=== PATIENT | female | born 1975 | race African-American/Black ===

== ENCOUNTER 2017-04-08 19:22 | Emergency (ER) | payer BC ==
[~2017-04-08] VITALS: Ht 154.9 cm; Wt 82.1 kg
[~2017-04-08 19:22] MED LIST: AC500T; AGM875T PO; ALBU17AE23 IH; AZIT-21 PO; CEFD300C3 PO; CETI5TAB25; CYCL10TA9 PO; DCS100C PO; DEXL60CA PO; DEXL60CA5 PO; DICY20TA57 PO; DOXY100C2 PO; GUAI100L2; HYDR-3583 PO; HYDR-91 PO; HYDR1TAB PO; IBP800T PO; IBUP-30 PO; IBUP200C8; LEVO750T24 PO; LRT10T PO; METF500T8 PO; METR500T PO; MTC5T PO; NAPR-243 PO; NF-TRA/ACE PO; PANT40SU PO; PANT40TA PO; PHEN100T26 PO; PNT40TEC PO; PRD20T PO; RANI150C11 PO; SCR1T1 PO; SUCR1TAB36 PO; SULF1TAB38 PO; TRAM-21 PO; TRM50T PO; [UNRECOGNIZED DRUG - REMARK]
[2017-04-08] MEDS ORDERED: FLUC150T PO (19:38)
[2017-04-08] MEDS ORDERED: AMOX-358 PO (19:38)
--- NOTE | 2017-04-08 19:39 | ED Integumentary General ---
General Stated Complaint: RT ARM SWELLING/POSSIBLE BITE Source: patient Exam Limitations: no limitations History of Present Illness Time seen by provider: 19:34 Initial Comments To ER with concern of a bug bite to the arm. She awakened this morning with a small red bump and some itchiness to the medial aspect of the right upper arm. She applied some hydrocortisone cream and went on about her day. As the day progressed she's had increasing redness, itchiness. No systemic symptoms such as fevers chills nausea or otherwise. She did not see anything bite her. Timing/Duration: this morning Severity: moderate Associated Symptoms: denies symptoms Allergies and Home Medications Allergies Uncoded Allergies: MILK (Adverse Reaction, Intermediate, Throat swelling, 05/03/14) Home Medications Dexlansoprazole 60 Mg Cap.bp, 60 MG PO DAILY, #30 Ref 5 Prescribed by: CAROLINE TSANG on 05/25/16 1005 Pantoprazole Sodium 40 Mg Tablet.dr, 80 MG PO DAILY, (Reported) Sucralfate 1 Gm Tablet, 1 GM PO PRN PRN for HEARTBURN, (Reported) Constitutional: see HPI, No chills, No fever EENTM: see HPI Respiratory: no symptoms reported Cardiovascular: no symptoms reported Genitourinary: no symptoms reported Musculoskeletal: no symptoms reported Skin: see HPI Psychiatric/Neurological: No Symptoms Reported Past Lvcueri-Fnsbqi-Hjwogg Hx Patient Social History Recent Foreign Travel: No Contact w/Someone Who Travel: No Immunizations Up To Date Tetanus Booster (TDap): Less than 5yrs Seasonal Allergies Seasonal Allergies: Yes Surgeries HX Surgeries: Yes (DENTAL) Surgeries: Hysterectomy Respiratory Hx Respiratory Disorders: No Cardiovascular Hx Cardiac Disorders: No Neurological Hx Neurological Disorders: No Reproductive System Hx Reproductive Disorders: Yes (Fibroid tumors, had 5 miscarragies) 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 Genitourinary Hx Genitourinary Disorders: Yes (PYELONEPHRITIS) Genitourinary Disorders: Kidney Infection Gastrointestinal Hx Gastrointestinal Disorders: No Gastrointestinal Disorders: Gastroesophageal Reflux Musculoskeletal Hx Musculoskeletal Disorders: No Endocrine Hx Endocrine Disorders: No HEENT HX ENT Disorders: No Cancer Hx Cancer: No Psychosocial Hx Psychiatric Problems: No Integumentary HX Skin/Integumentary Disorder: No Blood Transfusions Hx Blood Disorders: No Family Medical History Family Medial History: Alzheimer's disease 19 FATHER Cardiovascular disease 19 MOTHER Completed stroke 19 MOTHER Diabetes mellitus 19 MOTHER Hypertension 19 MOTHER Kidney disease 19 MOTHER Myocardial infarction 19 MOTHER Respiratory disorder 19 MOTHER (COPD) Physical Exam Vital Signs Capillary Refill : General Appearance: WD/WN, no apparent distress HEENT: PERRL/EOMI, normal ENT inspection Neck: non-tender, full range of motion Respiratory: no respiratory distress, no accessory muscle use Gastrointestinal: normal bowel sounds, non tender Neurologic/Psychiatric: alert, normal mood/affect Skin: normal color, warm/dry Skin Problem Character: erythema (10 x 15 cm erythematous area to the medial aspect of the right upper arm with a small papule in the center without necrosis or fluctuance to suggest abscess.) Progress/Results/Core Measures Results/Orders My Orders Orders - LOC DAVEY APRN Amoxicillin/Clavulanate Tablet (Augmenti (04/08/17 19:45) Dexamethasone Pf Injection (Decadron Pf (04/08/17 19:45) Departure Communication Progress Notes Discussed with the patient it is difficult at this point to determine whether this is a localized reaction to insect venom or an insect bite with secondary infection. Impression Impression: Primary Impression: Soft tissue infection Additional Impression: Localized allergic reaction Disposition: 01 HOME, SELF-CARE Condition: Stable Departure-Patient Inst. Decision time for Depature: 19:36 Referrals: JAZMIN MCGRAW DO (PCP/Family) Primary Care Physician Patient Instructions: Insect Bites and Stings Add. Discharge Instructions: 1. Apply cool compresses to this 2. Take a Benadryl tonight when you get home. Then, using every 6 hours as needed for itching. Obviously this will make you sleepy but if there is an allergic component to this rash, the Benadryl will help 2. Follow-up with Dr. Mcgraw later this week for any worsening or persistent symptoms. Take the antibiotics as well. Scripts Fluconazole (Diflucan) 150 Mg Tablet 150 MG PO DAILY for 2 Days, #2 TAB Prov: LOC DAVEY APRN 04/08/17 Amoxicillin/Potassium Clav (Augmentin 875-125 Tablet) 1 Each Tablet 1 EACH PO BID, #14 TAB Prov: LOC DAVEY APRN 04/08/17 Copy Copies To 1: JAZMIN MCGRAW PETER J APRN Apr 08, 2017 19:39
[2017-04-08] MEDS ORDERED: AUGMENTIN 875 MG TAB (AMOXICILLIN/CLAVULANATE) PO SCH (19:45)
[2017-04-08] MEDS ORDERED: DEXAMETHASONE PF 10 MG/ML (DECADRON) VIAL IM ONE (19:45)
[2017-04-08 20:10] VITALS: BP 135/64
--- OUTSIDE RECORDS SUMMARY | 2017-04-09 09:28 | XMS REPORT | Continuity of Care Document ---
Author Author [facility] Organization [facility] Address Unknown Phone Unavailable Allergies Active Description Code Type Severity Reaction Onset Reported/Identified Relationship to Patient Clinical Status Yes MILK MILK Moderate Throat swelling 05/03/2014 Medications Problems Date Dx Coded Attending Type Code Diagnosis Diagnosed By 07/16/2010 Ot 787.91 07/16/2010 Ot 789.03 07/16/2010 Ot 789.06 07/28/2010 Ot 466.0 07/28/2010 Ot 786.2 10/27/2010 Ot 845.00 10/27/2010 Ot 959.7 10/27/2010 Ot E000.8 10/27/2010 Ot E849.8 10/27/2010 Ot E885.9 10/27/2010 Ot E927.0 07/18/2012 Ot 530.11 07/18/2012 Ot 535.50 07/18/2012 Ot 553.3 07/28/2013 KIRK SKELTON DO Ot 785.1 10/26/2013 KIRK SKELTON DO Ot 785.1 12/19/2013 JULIETTE CULP, APRIL Buckley Ot 462 12/19/2013 JULIETTE CULP, APRIL Buckley Ot 465.9 05/03/2014 KIRK SKELTON DO Ot 462 07/10/2014 LOC DAVEY WAREHOUSE ORDER PICKER Ot 530.81 07/10/2014 LOC DAVEY WAREHOUSE ORDER PICKER Ot 789.06 09/26/2014 VICKY CULP, MICHELLE Mann Ot 354.0 09/26/2014 VICKY CULP, MICHELLE Mann Ot 719.43 11/28/2014 JULIETTE CULP, APRIL Buckley Ot 465.9 11/28/2014 APRIL SEGOVIA MD Ot 786.2 11/30/2014 Ot 729.5 11/30/2014 Ot V45.89 11/30/2014 Ot 785.1 12/02/2014 Ot 729.5 12/02/2014 Ot V45.89 12/02/2014 Ot 785.1 12/26/2014 Ot 530.81 12/26/2014 Ot 786.50 03/20/2015 LOC DAVEY APRN Ot 724.5 03/31/2015 Ot 729.5 03/31/2015 Ot V45.89 03/31/2015 Ot 785.1 05/18/2015 FRANCO CASTANEDA DERRICK ENGINEER Ot 729.5 05/18/2015 FRANCO CASTANEDA DERRICK ENGINEER Ot 729.5 06/10/2015 DELROY CULP, MARY Higgins Ot V76.12 06/23/2015 FRANCO CASTANEDA DERRICK ENGINEER Ot 729.5 07/11/2015 FRANCO CASTANEDA DERRICK ENGINEER Ot 729.5 08/02/2015 FRANCO CASTANEDA DERRICK ENGINEER Ot 729.5 08/02/2015 FRANCO CASTANEDA DERRICK ENGINEER Ot M79.609 08/07/2015 CONCHITA CULP, RAZA Mancia Ot K21.0 GASTRO-ESOPHAGEAL REFLUX DISEASE WITH ES 08/07/2015 CONCHITA CULP, RAZA Mancia Ot R07.9 CHEST PAIN, UNSPECIFIED 08/07/2015 CONCHITA CULP, RAZA Mancia Ot Z79.899 OTHER SHELTER (CURRENT) DRUG THERAPY 08/12/2015 DELROY CULP, MARY Higgins Ot V76.12 08/12/2015 FRANCO CASTANEDA DERRICK ENGINEER Ot 729.5 08/12/2015 FRANCO CASTANEDA DERRICK ENGINEER Ot M79.609 12/07/2015 VICKY CULP, MICHELLE Mann Ot M54.6 PAIN IN THORACIC SPINE 12/07/2015 VICKY CULP, MICHELLE Mann Ot R07.89 OTHER CHEST PAIN 04/25/2016 ARIANA HAMILTON DO Ot K21.0 GASTRO-ESOPHAGEAL REFLUX DISEASE WITH ES 04/25/2016 ARINAA HAMILTON DO Ot R07.89 OTHER CHEST PAIN 04/26/2016 ARIANA HAMILTON DO Ot K21.0 GASTRO-ESOPHAGEAL REFLUX DISEASE WITH ES 04/26/2016 ARIANA HAMILTON DO Ot R07.89 OTHER CHEST PAIN 04/27/2016 ARIANA HAMILTON DO Ot K21.0 GASTRO-ESOPHAGEAL REFLUX DISEASE WITH ES 04/27/2016 JOY DO ARIANA Ina Ot R07.89 OTHER CHEST PAIN 05/09/2016 MARY POTTS MD, Ot Z12.31 ENCNTR SCREEN MAMMOGRAM FOR MALIGNANT NE 05/23/2016 CAROLINE TSANG MD Ot K21.9 GASTRO-ESOPHAGEAL REFLUX DISEASE WITHOUT 05/23/2016 CAROLINE TSANG MD Ot Z01.818 ENCOUNTER FOR OTHER PREPROCEDURAL EXAMIN 05/24/2016 CAROLINE TSANG MD Ot K21.9 GASTRO-ESOPHAGEAL REFLUX DISEASE WITHOUT 05/24/2016 CAROLINE TSANG MD Ot Z01.818 ENCOUNTER FOR OTHER PREPROCEDURAL EXAMIN 05/24/2016 CAROLINE TSANG MD Ot K21.9 GASTRO-ESOPHAGEAL REFLUX DISEASE WITHOUT 05/24/2016 CAROLINE TSANG MD Ot Z01.818 ENCOUNTER FOR OTHER PREPROCEDURAL EXAMIN 05/25/2016 MARY POTTS MD, Ot Z12.31 ENCNTR SCREEN MAMMOGRAM FOR MALIGNANT NE 05/25/2016 CAROLINE TSANG MD Ot K21.0 GASTRO-ESOPHAGEAL REFLUX DISEASE WITH ES 05/25/2016 CAROLINE TSANG MD Ot K29.70 GASTRITIS, UNSPECIFIED, WITHOUT BLEEDING 05/25/2016 CAROLINE TSANG MD Ot K44.9 DIAPHRAGMATIC HERNIA WITHOUT OBSTRUCTION 06/05/2016 CAROLINE TSANG MD Ot K21.0 GASTRO-ESOPHAGEAL REFLUX DISEASE WITH ES 06/05/2016 CAROLINE TSANG MD Ot K29.70 GASTRITIS, UNSPECIFIED, WITHOUT BLEEDING 06/05/2016 CAROLINE TSANG MD Ot K44.9 DIAPHRAGMATIC HERNIA WITHOUT OBSTRUCTION 06/23/2016 MARY POTTS MD, Ot Z12.31 ENCNTR SCREEN MAMMOGRAM FOR MALIGNANT NE 06/25/2016 JAZMIN MCGRAW DO Ot M25.562 PAIN IN LEFT KNEE 07/04/2016 JAZMIN MCRGAW DO Ot M25.562 PAIN IN LEFT KNEE Procedures Results Encounters ACCT No. Visit Date/Time Discharge Status Pt. Type Provider Facility Loc./Unit Complaint [id number] 06/22/2016 18:26:00 2015 18:26:00 CAN Preadmit JAZMIN MCGRAW DO [facility] RAD L KNEE PAIN [id number] 05/25/2016 08:01:00 2015 11:00:00 DIS Outpatient CAROLINE TSANG MD [facility] SDC REFLUX [id number] 05/23/2016 05:42:00 2015 10:17:00 DIS Outpatient CAROLINE TSANG MD [facility] PREOP REFLUX [id number] 04/25/2016 18:45:00 2015 22:03:00 DIS Emergency ARIANA HAMILTON DO [facility] ER SORE THROAT,ACID REFLUX [id number] 12/07/2015 04:26:00 2015 06:18:00 DIS Emergency MICHELLE PERRY MD [facility] ER BACK PAIN,CHEST PAIN [id number] 08/07/2015 14:35:00 2014 16:51:00 DIS Emergency CONCHITA CULP, RAZA Mancia [facility] ER CHEST PAIN [id number] 05/23/2015 08:58:00 2014 23:59:59 CLS Outpatient MARY POTTS MD [facility] RAD [id number] 05/03/2015 10:34:00 2014 23:59:59 CLS Outpatient FRANCO CASTANEDA [facility] RAD [id number] 03/20/2015 17:50:00 2014 18:55:00 DIS Emergency LOC DAVEY APRN [facility] ER [id number] 11/28/2014 21:41:00 2014 23:06:00 DIS Emergency APRIL SEGOVIA MD [facility] ER [id number] 09/26/2014 08:36:00 2013 09:33:00 DIS Emergency MICHELLE PERYR MD [facility] ER [id number] 07/10/2014 10:36:00 2013 11:44:00 DIS Emergency DAVEYLOC APRN [facility] ER [id number] 05/03/2014 11:40:00 2013 13:02:00 DIS Emergency KIRK SKELTON DO [facility] ER [id number] 12/19/2013 06:57:00 2013 07:16:00 DIS Emergency APRIL SEGOVIA MD [facility] ER [id number] 07/28/2013 11:09:00 2013 00:01:00 DIS Outpatient KIRK SKELTON DO [facility] CARD [id number] 07/28/2013 08:22:00 2012 10:43:00 DIS Emergency KIRK SKELTON DO [facility] ER [id number] 02/06/2013 13:05:00 2012 23:59:59 CLS Outpatient [id number] 06/23/2016 08:41:00 ACT Outpatient LUCIEN JAZMIN [facility] RAD L KNEE PAIN [id number] 05/08/2016 10:40:00 ACT Outpatient MARY POTTS MD [facility] RAD ROUTINE SCREENING [id number] 12/26/2014 19:03:00 Document Registration [id number] 10/27/2013 11:30:00 Document Registration [id number] 10/01/2012 10:08:00 Document Registration [id number] 07/18/2012 09:48:00 Document Registration [id number] 10/27/2010 20:01:00 Document Registration [id number] 07/28/2010 00:15:00 Document Registration [id number] 07/16/2010 03:19:00 Document Registration
== END 2017-04-08 20:10 | disposition home or self-care (01) ==
LOC: EDUNIT# 19:22 → ER 19:24
DX: T78.40XA Allergy, unspecified, initial encounter (principal); L08.9 Local infection of the skin and subcutaneous tissue, unspecified
CPT/HCPCS: 99283

== ENCOUNTER → 2017-05-21 | Outpatient (CLI) | payer BC ==
[~2017-05-21] MED LIST changes: +AMOX-358 PO; +FLUC150T PO
== END ==
LOC: RAD 09:33
PROVIDERS: ATTEND Family Medicine
DX: Z12.31 Encounter for screening mammogram for malignant neoplasm of breast (principal)
CPT/HCPCS: 77067

== ENCOUNTER → 2018-05-22 | Outpatient (CLI) | payer BC ==
--- NOTE | 2018-05-22 10:00 | Diagnostic Imaging Report ---
Indication: Routine screening. Comparison is made with prior mammogram from 05/21/2017 and 05/08/2016. 2-D and 3-D bilateral screening mammography was performed with CAD. Both breasts remain heterogeneously dense, limiting the sensitivity of mammography. The parenchymal pattern is stable. No dominant mass or malignant-appearing microcalcifications are seen. Axillae are unremarkable. Impression: BI-RADS category 1. No mammographic features suspicious for malignancy are identified. ACR BI-RADS Category 1: Negative. Result letter will be mailed to the patient. Note: At least 10% of breast cancer is not imaged by mammography. Dictated by: Dictated on workstation # [id number]
== END ==
LOC: RAD 07:35
PROVIDERS: ATTEND Family Medicine
DX: Z12.31 Encounter for screening mammogram for malignant neoplasm of breast (principal)
CPT/HCPCS: 77067

== ENCOUNTER 2018-09-02 18:01 | Emergency (ER) | payer BC ==
[~2018-09-02] VITALS: Ht 162.6 cm; Wt 79.4 kg
[~2018-09-02 18:01] MED LIST changes: +LEVO500T2 PO; +PHEN-640 PO
--- OUTSIDE RECORDS SUMMARY | 2018-09-02 18:07 | XMS REPORT ---
Author Author STANISLAV KIRKLAND Organization [facility] Address [address] [place] [address] Care Team Providers Care Rotary Cutter Feeder Name Role Phone STANISLAV KIRKLAND Unavailable PROBLEMS Type Condition ICD9-CM Code [id number] Code Onset Dates Condition Status SNOMED Code Problem Seasonal allergic rhinitis due to pollen J30.1 Active [id number] ALLERGIES No Known Allergies ENCOUNTERS Encounter Location Date Diagnosis [facility] [id number] [place] [phone] Mar, Sore throat J02.9 and Seasonal allergic rhinitis due to pollen J30.1 [facility] [address] [place] [phone] Jan, Allergic, initial encounter T78.40XA and Acute suppurative otitis media of left ear without spontaneous rupture of tympanic membrane, recurrence not specified H66.002 [facility] [address] [place] [phone] Nov, 2016 Sore throat J02.9 and Seasonal allergic rhinitis due to pollen J30.1 IMMUNIZATIONS No Known Immunizations SOCIAL HISTORY Never Assessed REASON FOR VISIT sore throat for 4 days. denies cough et fever. been sick for a week [place] PLAN OF CARE Activity Details Follow Up prn Reason:ear pain VITAL SIGNS Height 61 in 2018-03-22 Weight 179.4 lbs 2018-03-22 Temperature 98.3 degrees Fahrenheit 2018-03-22 Heart Rate 80 bpm 2018-03-22 Respiratory Rate 20 2018-03-22 BMI 33.89 kg/m2 2018-03-22 Blood pressure systolic 124 mmHg 2018-03-22 Blood pressure diastolic 76 mmHg 2018-03-22 MEDICATIONS Medication Instructions Dosage Frequency Start Date End Date Duration Status Dexilant 60 MG Orally Once a day 1 capsule 24h Active Fluticasone Propionate 50 MCG/ACT Nasally Once a day 1 spray in each nostril 24h Nov, Active Phentermine HCl 37.5 MG Not-Taking Protonix 40 MG Orally Once a day 1 tablet 24h Active RESULTS Name Result Date Reference Range STREP A (IN HOUSE) 2018-03-22 STREP A negative Control + Lot # [id number] Exp date 2019 10 16 PROCEDURES Procedure Date Ordered Result Body Site STREP A ASSAY W/OPTIC March 22, 2018 INSTRUCTIONS MEDICATIONS ADMINISTERED No Known Medications MEDICAL (GENERAL) HISTORY Type Description Date Surgical History [facility] 2012 Surgical History dental surgery...wisdom teeth 2007 Hospitalization History post surgery 2013 Hospitalization History post vaginal child 2003, 2006
--- OUTSIDE RECORDS SUMMARY | 2018-09-02 18:09 | XMS REPORT | Continuity of Care Document ---
Author Author [facility] Organization [facility] Address Unknown Phone Unavailable Allergies Active Description Code Type Severity Reaction Onset Reported/Identified Relationship to Patient Clinical Status Yes MILK MILK Moderate Throat swelling 05/03/2014 Medications There is no data. Problems Date Dx Coded Attending Type Code [...] JULIETTE CULP, APRIL Buckley Ot 462 12/19/2013 APRIL SEGOVIA MD Ot 465.9 05/03/2014 KIRK SKELTON DO Ot 462 07/10/2014 LOC DAVEY APRN Ot 530.81 07/10/2014 LOC DAVEY APRN Ot 789.06 09/26/2014 VICKY CULP, MICHELLE Mann [...] V45.89 03/31/2015 Ot 785.1 05/18/2015 FRANCO CASTANEDA COMPUTER GRAPHICS ILLUSTRATOR Ot 729.5 05/18/2015 FRANCO CASTANEDA COMPUTER GRAPHICS ILLUSTRATOR Ot 729.5 06/10/2015 DELROY CULP, MARY Higgins Ot V76.12 06/23/2015 FRANCO CASTANEDAP Ot 729.5 07/11/2015 FRANCO CASTANEDAP Ot 729.5 08/02/2015 FRANCO CASTANEDAP Ot 729.5 08/02/2015 FRANCO CASTANEDAP Ot M79.609 08/07/2015 CONCHITA CULP, RAZA Mancia Ot K21.0 GASTRO-ESOPHAGEAL REFLUX DISEASE WITH ES 08/07/2015 CONCHITA CULP, RAZA Mancia Ot R07.9 CHEST PAIN, UNSPECIFIED 08/07/2015 CONCHITA CULP, RAZA Mancia Ot 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 08/12/2015 DELROY CULP, MARY Higgins Ot V76.12 08/12/2015 FRANCO CASTANEDA COMPUTER GRAPHICS ILLUSTRATOR Ot 729.5 08/12/2015 FRANCO CASTANEDAP Ot M79.609 12/07/2015 VICKY CULP, MICHELLE Mann Ot M54.6 PAIN IN THORACIC SPINE 12/07/2015 VICKY CULP, MICHELLE Mann Ot R07.89 OTHER CHEST PAIN 04/25/2016 ARIANA HAMILTON DO Ot K21.0 GASTRO-ESOPHAGEAL REFLUX DISEASE WITH ES 04/25/2016 ARIANA HAMILTON DO Ot R07.89 OTHER CHEST PAIN 04/26/2016 ARIANA HAMILTON DO Ot K21.0 GASTRO-ESOPHAGEAL REFLUX DISEASE WITH ES 04/26/2016 ARIANA HAMILTON DO Ot R07.89 OTHER CHEST PAIN 04/27/2016 ARIANA HAMILTON DO Ot K21.0 GASTRO-ESOPHAGEAL REFLUX DISEASE WITH ES 04/27/2016 ARIANA HAMILTON DO Ot R07.89 OTHER CHEST PAIN 05/09/2016 MARY POTTS MD, Ot Z12.31 ENCNTR SCREEN MAMMOGRAM FOR MALIGNANT NE 05/23/2016 CAROLINE TSANG MD Ot K21.9 GASTRO-ESOPHAGEAL REFLUX DISEASE WITHOUT 05/23/2016 CAROLINE TSANG MD Ot Z01.818 ENCOUNTER FOR OTHER PREPROCEDURAL EXAMIN 05/24/2016 CAROLINE TSANG MD Ot K21.9 GASTRO-ESOPHAGEAL REFLUX DISEASE WITHOUT 05/24/2016 SANJIV TSANG MDKI Ot Z01.818 ENCOUNTER FOR OTHER PREPROCEDURAL EXAMIN [...] ENCNTR SCREEN MAMMOGRAM FOR MALIGNANT NE 06/25/2016 ALMAZ ENRIQUEZ DO S Ot M25.562 PAIN IN LEFT KNEE 07/04/2016 ALMAZ ENRIQUEZ DO S Ot M25.562 PAIN IN LEFT KNEE 04/08/2017 LOC DAVEY APRN Ot L08.9 LOCAL INFECTION OF THE SKIN AND SUBCUTAN 04/08/2017 LOC DAVEY APRN Ot S40.861A INSECT BITE (NONVENOMOUS) OF RIGHT UPPER 04/08/2017 LOC DAVEY TRAPEZE ARTIST Ot T78.40XA ALLERGY, UNSPECIFIED, INITIAL ENCOUNTER 06/10/2017 ALMAZ ENRIQUEZ DO S Ot Z12.31 ENCNTR SCREEN MAMMOGRAM FOR MALIGNANT NE 09/04/2017 DELROY CULP, MARY Higgins Ot Z12.31 ENCNTR SCREEN MAMMOGRAM FOR MALIGNANT NE 09/27/2017 DELROY CULP, MARY Higgins Ot Z12.31 ENCNTR SCREEN MAMMOGRAM FOR MALIGNANT NE 09/27/2017 ROHITHNDGLADYS JONES, ALMAZ S Ot M25.562 PAIN IN LEFT KNEE 09/27/2017 LUCIEN JONES, ALMAZ S Ot Z12.31 ENCNTR SCREEN MAMMOGRAM FOR MALIGNANT NE 09/30/2017 MARY POTTS MD Ot Z12.31 ENCNTR SCREEN MAMMOGRAM FOR MALIGNANT NE 09/30/2017 WERNER ENRIQUEZ DOQUELINE S Ot M25.562 PAIN IN LEFT KNEE 09/30/2017 WERNER ENRIQUEZ DOQUELINE S Ot Z12.31 ENCNTR SCREEN MAMMOGRAM FOR MALIGNANT NE 05/13/2018 MARY POTTS MD Ot Z12.31 ENCNTR SCREEN MAMMOGRAM FOR MALIGNANT NE 05/13/2018 ROHITHNDGLADYS DO, ALMAZ S Ot M25.562 PAIN IN LEFT KNEE 05/13/2018 LUCIEN JONES, ALMAZ S Ot Z12.31 ENCNTR SCREEN MAMMOGRAM FOR MALIGNANT NE 06/02/2018 KIRK SKELTON DO Ot K21.9 GASTRO-ESOPHAGEAL REFLUX DISEASE WITHOUT 06/02/2018 KIRK SKELTON DO Ot N30.80 OTHER CYSTITIS WITHOUT HEMATURIA 06/02/2018 KIRK SKELTON DO Ot N39.0 URINARY TRACT INFECTION, SITE NOT SPECIF 06/02/2018 KIRK SKELTON DO Ot R35.0 FREQUENCY OF MICTURITION 06/02/2018 KIRK SKELTON DO Ot Z87.19 PERSONAL HISTORY OF OTHER DISEASES OF TH 06/02/2018 KIRK SKELTON DO Ot Z90.710 ACQUIRED ABSENCE OF BOTH CERVIX AND UTER 06/02/2018 KIRK SKELTON DO Ot Z91.011 ALLERGY TO MILK PRODUCTS 06/04/2018 KIRK SKELTON DO Ot K21.9 GASTRO-ESOPHAGEAL REFLUX DISEASE WITHOUT 06/04/2018 KIRK SKELTON DO Ot N30.80 OTHER CYSTITIS WITHOUT HEMATURIA 06/04/2018 KIRK SKELTON DO Ot N39.0 URINARY TRACT INFECTION, SITE NOT SPECIF 06/04/2018 KIRK SKELTON DO Ot R35.0 FREQUENCY OF MICTURITION 06/04/2018 KIRK SKELTON DO Ot Z87.19 PERSONAL HISTORY OF OTHER DISEASES OF TH 06/04/2018 KIRK SKELTON DO Ot Z90.710 ACQUIRED ABSENCE OF BOTH CERVIX AND UTER 06/04/2018 KIRK SKELTON DO Ot Z91.011 ALLERGY TO MILK PRODUCTS Procedures There is no data. Results There is no data. Encounters ACCT No. Visit Date/Time Discharge Status Pt. Type Provider Facility Loc./Unit Complaint [id number] 06/02/2018 04:19:00 06/02/2018 05:09:00 DIS Emergency KIRK SKELTON DO [facility] ER POSS UTI, BLOODY VAG DISCHARGE,PELVIC PAIN [id number] 05/22/2018 07:45:00 05/22/2018 23:59:59 CLS Preadmit ALMAZ ENRIQUEZ DO S [facility] RAD SCREENING [id number] 05/21/2017 09:33:00 05/21/2017 23:59:59 CLS Outpatient ALMAZ ENRIQUEZ DO S [facility] RAD SCREENING [id number] 04/08/2017 19:24:00 04/08/2017 20:10:00 DIS Emergency LOC DAVEY APRN [facility] ER RT ARM SWELLING/POSSIBLE BITE [id number] 06/23/2016 08:41:00 06/23/2016 23:59:59 CLS Outpatient IZZY ENRIQUEZ DOLINE S [facility] RAD L KNEE PAIN [id number] 06/22/2016 18:26:00 06/22/2016 18:26:00 CAN Preadmit ROHITHNDWERNER GRAHAM DOQUELINE S [facility] RAD L KNEE PAIN [id number] 05/25/2016 08:01:00 05/25/2016 11:00:00 DIS Outpatient CAROLINE TSANG MD [facility] SDC REFLUX [id number] 05/23/2016 05:42:00 05/23/2016 10:17:00 DIS Outpatient CAROLINE TSANG MD [facility] PREOP REFLUX [id number] 05/08/2016 10:40:00 05/08/2016 23:59:59 CLS Outpatient MARY POTTS MD [facility] RAD ROUTINE SCREENING [id number] 04/25/2016 18:45:00 04/25/2016 22:03:00 DIS Emergency ARIANA HAMILTON DO [facility] ER SORE THROAT,ACID REFLUX [id number] 12/07/2015 04:26:00 12/07/2015 06:18:00 DIS Emergency MICHELLE PERRY MD [facility] ER BACK PAIN,CHEST PAIN [id number] 08/07/2015 14:35:00 08/07/2015 16:51:00 DIS Emergency RAZA ARANGO MD [facility] ER CHEST PAIN [id number] 05/23/2015 08:58:00 05/23/2015 23:59:59 CLS Outpatient MARY POTTS MD [facility] RAD [id number] 05/03/2015 10:34:00 05/03/2015 23:59:59 CLS Outpatient FRANCO CASTANEDA [facility] RAD [id number] 03/20/2015 17:50:00 03/20/2015 18:55:00 DIS Emergency LOC DAVEY APRN [facility] ER [id number] 11/28/2014 21:41:00 11/28/2014 23:06:00 DIS Emergency APRIL SEGOVIA MD [facility] ER [id number] 09/26/2014 08:36:00 09/26/2014 09:33:00 DIS Emergency MICHELLE PERRY MD [facility] ER [id number] 07/10/2014 10:36:00 07/10/2014 11:44:00 DIS Emergency PETAR LOC Aldrich APRN [facility] ER [id number] 05/03/2014 11:40:00 05/03/2014 13:02:00 DIS Emergency KIRK SKELTON DO [facility] ER [id number] 12/19/2013 06:57:00 12/19/2013 07:16:00 DIS Emergency APRIL SEGOVIA MD [facility] ER [id number] 07/28/2013 11:09:00 10/26/2013 00:01:00 DIS Outpatient KIRK SKELTON DO [facility] CARD [id number] 07/28/2013 08:22:00 07/28/2013 10:43:00 DIS Emergency KIRK SKELTON DO [facility] ER [id number] 02/06/2013 13:05:00 02/06/2013 23:59:59 CLS Outpatient [id number] 09/02/2018 18:03:00 ACT Emergency SABINA WILKINSON MD [facility] ER "BUTTERFLIES IN CHEST" [id number] 12/26/2014 19:03:00 Document Registration [id number] 10/27/2013 11:30:00 Document Registration [id number] 10/01/2012 10:08:00 Document Registration [id number] 07/18/2012 09:48:00 Document Registration [id number] 10/27/2010 20:01:00 Document Registration [id number] 07/28/2010 00:15:00 Document Registration [id number] 07/16/2010 03:19:00 Document Registration [id number] 03/22/2018 08:10:00 03/22/2018 23:59:59 CLS Outpatient JAIME CHANDRA APRN [facility] 05/20/15 08/26/2018 10:42:02 08/26/2018 23:59:59 CLS Outpatient Almaz Enriquez [id number] 05/23/2015 08:59:26 ACT Document Registration
[2018-09-02 19:14] LABS: BASOPHILS % (AUTO) 0 % (0-10); EOSINOPHILS # (AUTO) 0.1 10^3/uL (0.0-0.3); EOSINOPHILS % (AUTO) 1 % (0-10); HEMATOCRIT 34 % (35-52); HEMOGLOBIN 11.3 G/DL (11.5-16.0); LYMPHOCYTES # (AUTO) 4.2 X 10^3 (1.0-4.0); LYMPHOCYTES % (AUTO) 61 % (12-44); MEAN CORPUSCULAR HEMOGLOBIN 25 PG (25-34); MEAN CORPUSCULAR HGB CONC 33 G/DL (32-36); MEAN CORPUSCULAR VOLUME 76 FL (80-99); MONOCYTES # (AUTO) 0.5 X 10^3 (0.0-1.0); MONOCYTES % (AUTO) 7 % (0-12); NEUTROPHILS % (AUTO) 30 % (42-75); PLATELET COUNT 354 10^3/uL (130-400); RED BLOOD COUNT 4.48 10^6/uL (4.35-5.85); RED CELL DISTRIBUTION WIDTH 14.5 % (10.0-14.5); WHITE BLOOD COUNT 6.8 10^3/uL (4.3-11.0)
--- NOTE | 2018-09-02 19:14 | ED Cardiac General ---
History of Present Illness General Chief Complaint: Chest Wall/Rib Pain Stated Complaint: "BUTTERFLIES IN CHEST" Source: patient Exam Limitations: no limitations History of Present Illness Date Seen by Provider: Sep 02, 2018 Time Seen by Provider: 18:59 Initial Comments The patient presents to ER by private conveyance with chief complaint she's had some palpitations and flutters in her chest all day. She says she thinks is related to her recent starting phentermine. She says she's been on for about a month when she went in for a checkup with her GREETING CARD EDITOR and asked him for refill and she take it for about 2 weeks and then started having some flutters like butterflies in her chest. She does not have any lightheadedness and near- syncope or passing out. She thought it might be related to phentermine so she stopped taking it about 10 days ago. She's continued to have these few second long flutters in her chest. He became more and more prominent in the last couple days several times a day and today she says she's had them off and on all day long and when she went to the chiropractor to have her rib put back in he checked her blood pressure and found it to be high around 170 systolic. She does not have any coronary artery disease, hypertension, diabetes, hypothyroidism and hyperthyroidism, cholesterol problems. She does not smoke or use control. She had a hysterectomy previously. She is not taking any medicines except for an antacid daily. She thought She had a high blood pressure in the palpitations in her chest she better come get checked out. She' s not having any pain in her chest nausea fever sweats chills. She says she drinks usually several caffeinated drinks a day 3-5. She thinks she's already had 2 teas and one soda today. Allergies and Home Medications Allergies Uncoded Allergies: MILK (Adverse Reaction, Intermediate, Throat swelling, 05/03/14) Patient Home Medication List Home Medication List Reviewed: Yes Review of Systems Review of Systems Constitutional: No chills, No diaphoresis EENTM: No Blurred Vision, No Double Vision Respiratory: Denies Cough, Denies Orthopnea Cardiovascular: Denies Chest Pain, Denies Edema, Denies Irregular Heart Rate, Denies Lightheadedness; Palpitations; Denies Syncope Gastrointestinal: Denies Constipated, Denies Diarrhea, Denies Nausea Genitourinary: Denies Discharge, Denies Drainage Musculoskeletal: No back pain, No joint pain Skin: No pruritus, No rash Psychiatric/Neurological: Denies Headache, Denies Numbness, Denies Paresthesia Past Cfom[place]g-Ljlqwf-Oeyndf Hx Patient Social History Alcohol Use: Denies Use Recreational Drug Use: No Recent Foreign Travel: No Contact w/Someone Who Travel: No Recent Hopitalizations: No Immunizations Up To Date Tetanus Booster (TDap): Less than 5yrs Seasonal Allergies Seasonal Allergies: Yes Past Medical History Surgeries: Yes (DENTAL; HYST/OVARIES INTACT; EGD'S ) Hysterectomy Respiratory: No Cardiac: No (Palpitations with steriods) Palpitations Neurological: No Reproductive Disorders: Yes (Fibroid tumors, had 5 miscarragies) GLASS BREAKER History: Hysterectomy Sexually Transmitted Disease: No Genitourinary: Yes Kidney Infection, Bladder Infection Gastrointestinal: Yes Gastroesophageal Reflux, Hiatal Hernia Musculoskeletal: No Endocrine: No HEENT: No Cancer: No Psychosocial: No Integumentary: No Blood Disorders: No Family Medical History Alzheimer's disease 19 FATHER Cardiovascular disease 19 MOTHER Completed stroke 19 MOTHER Diabetes mellitus 19 MOTHER Hypertension 19 MOTHER Kidney disease 19 MOTHER Myocardial infarction 19 MOTHER Respiratory disorder 19 MOTHER (COPD) Physical Exam Vital Signs Vital Signs - First Documented 09/02/18 18:36 Temp 98.0 Pulse 100 Resp 18 B/P (MAP) 174/100 (124) Pulse Ox 100 Capillary Refill : Height, Weight, BMI Height: 5'1.50" Weight: 179lbs. 1.0oz. 81.599035hu; 34.2 BMI Method:Stated General Appearance: No Apparent Distress, WD/WN HEENT: PERRL/EOMI, Pharynx Normal, Moist Mucous Membranes Neck: Full Range of Motion, Supple Respiratory: Chest Non Tender, Lungs Clear, Normal Breath Sounds, No Accessory Muscle Use, No Respiratory Distress Cardiovascular: Regular Rate, Rhythm, No Edema, Normal Peripheral Pulses Gastrointestinal: Normal Bowel Sounds, Non Tender, Soft Extremity: Normal Capillary Refill, No Pedal Edema Neurologic/Psychiatric: Alert, Oriented x3 Skin: Normal Color, Warm/Dry Progress/Results/Core Measures Results/Orders Lab Results Laboratory Tests Test 09/02/18 18:46 09/02/18 19:30 Range/Units White Blood Count 6.8 4.3-11.0 10^3/uL Red Blood Count 4.48 4.35-5.85 10^6/uL Hemoglobin 11.3 L 11.5-16.0 G/DL Hematocrit 34 L 35-52 % Mean Corpuscular Volume 76 L 80-99 FL Mean Corpuscular Hemoglobin 25 25-34 PG Mean Corpuscular Hemoglobin Concent 33 32-36 G/DL Red Cell Distribution Width 14.5 10.0-14.5 % Platelet Count 354 130-400 10^3/uL Mean Platelet Volume 10.0 7.4-10.4 FL Neutrophils (%) (Auto) 30 L 42-75 % Lymphocytes (%) (Auto) 61 H 12-44 % Monocytes (%) (Auto) 7 0-12 % Eosinophils (%) (Auto) 1 0-10 % Basophils (%) (Auto) 0 0-10 % Neutrophils # (Auto) 2.0 1.8-7.8 X 10^3 Lymphocytes # (Auto) 4.2 H 1.0-4.0 X 10^3 Monocytes # (Auto) 0.5 0.0-1.0 X 10^3 Eosinophils # (Auto) 0.1 0.0-0.3 10^3/uL Basophils # (Auto) 0.0 0.0-0.1 10^3/uL Sodium Level 139 135-145 MMOL/L Potassium Level 3.3 L 3.6-5.0 MMOL/L Chloride Level 106 98-107 MMOL/L Carbon Dioxide Level 24 21-32 MMOL/L Anion Gap 9 5-14 MMOL/L Blood Urea Nitrogen 5 L 7-18 MG/DL Creatinine 0.77 0.60-1.30 MG/DL Estimat Glomerular Filtration Rate > 60 BUN/Creatinine Ratio 6 Glucose Level 107 H 70-105 MG/DL Calcium Level 9.0 8.5-10.1 MG/DL Corrected Calcium 8.8 8.5-10.1 MG/DL Total Bilirubin 0.2 0.1-1.0 MG/DL Aspartate Amino Transf (AST/SGOT) 15 5-34 U/L Alanine Aminotransferase (ALT/SGPT) 14 0-55 U/L Alkaline Phosphatase 53 40-136 U/L Troponin I < 0.30 <0.30 NG/ML Total Protein 7.6 6.4-8.2 GM/DL Albumin 4.3 3.2-4.5 GM/DL Thyroid Stimulating Hormone (TSH) 6.32 H 0.35-4.94 UIU/ML Free Thyroxine 0.97 0.70-1.48 NG/DL Urine Opiates Screen NEGATIVE NEGATIVE Urine Oxycodone Screen NEGATIVE NEGATIVE Urine Methadone Screen NEGATIVE NEGATIVE Urine Propoxyphene Screen NEGATIVE NEGATIVE Urine Barbiturates Screen NEGATIVE NEGATIVE Ur Tricyclic Antidepressants Screen NEGATIVE NEGATIVE Urine Phencyclidine Screen NEGATIVE NEGATIVE Urine Amphetamines Screen NEGATIVE NEGATIVE Urine Methamphetamines Screen NEGATIVE NEGATIVE Urine Benzodiazepines Screen NEGATIVE NEGATIVE Urine Cocaine Screen NEGATIVE NEGATIVE Urine Cannabinoids Screen NEGATIVE NEGATIVE My Orders Orders - SABINA WILKINSON Cbc With Automated Diff (09/02/18 19:06) Comprehensive Metabolic Panel (09/02/18 19:06) Drug Screen Stat (Urine) (09/02/18 19:06) Thyroid Stimulating Hormone (09/02/18 19:06) Troponin I (09/02/18 19:06) Chest Pa/Lat (2 View) (09/02/18 19:06) Continuous Ekg Monitoring (09/02/18 19:06) Free T4 (Free Thyroxine) (09/02/18 19:57) Vital Signs/I&O 09/02/18 18:36 Temp 98.0 Pulse 100 Resp 18 B/P (MAP) 174/100 (124) Pulse Ox 100 Progress Progress Note : Time: 19:12 Progress Note We will obtain an EKG, rule out anemia with a CBC, check a TSH looking for thyroid disorder, check electrolytes using a CMP and check a troponin. Her intermittent palpitations could be cardiogenic so if we don't find anything today to explain the movements dangerous we'll suggest she follow-up with Dr. Enriquez her primary care provider to consider an outpatient monitor study. Her blood pressure is elevated around 159 and her heart rates up into the 90s however this could also be anxiety driven. We have talked her about discontinuing the use of caffeine for the next week or to see how that affects her symptoms. Initial ECG Impression Date: Sep 02, 2018 Initial ECG Impression Time: 19:06 Initial ECG Rate: 89 Initial ECG Rhythm: Normal Sinus Initial ECG Intervals: Normal Initial ECG Impression: Normal Initial ECG Comparisson: No Previous ECG Available Comment No dysrhythmia, ST elevation or depression. Diagnostic Imaging Diagonstic Imaging: Xray Plain Films/CT/US/NM/MRI: chest (1v) Comments VIA [facility]. [place], [place] NAME: GIANA ONEIL [facility] REC#: [id number] PT STATUS: REG ER : 1975 PHYSICIAN: SABINA WILKINSON MD ADMIT DATE: 09/02/18/ER Draft Date of Exam:09/02/18 CHEST PA/LAT (2 VIEW) INDICATION: Elevated blood pressure, feels a rib out of place. EXAMINATION: 2 view chest from 09/02/2018. FINDINGS: Two views of the chest. The heart and pulmonary vasculature appear unremarkable. There are no infiltrates, effusions or pneumothorax. IMPRESSION: Negative chest. Dictated on workstation # [id number] Dict: 09/02/181939 Trans: 09/02/181943 [id number] Interpreted by: MARY JO DELCID MD Electronically signed by: Reviewed: Reviewed by Me Departure Impression Primary Impression: Intermittent palpitations Disposition: 01 HOME, SELF-CARE Condition: Stable Departure-Patient Inst. Decision time for Depature: 21:10 Referrals: JAZMIN ENRIQUEZ DO (PCP/Family) Primary Care Physician Patient Instructions: Palpitations (DC) Add. Discharge Instructions: Discontinue the use of caffeine. Make an appointment with Dr. Enriquez for the next 2 weeks. Repeat your thyroid studies. If you begin to have chest pain or other worrisome symptoms then you should return to the ER. All discharge instructions reviewed with patient and/or family. Voiced understanding. Copy Copies To 1: JAZMIN ENRIQUEZ TITUS J Sep 02, 2018 19:14
[2018-09-02 19:27] LABS: ALANINE AMINOTRANSFERASE 14 U/L (0-55); ALBUMIN 4.3 GM/DL (3.2-4.5); ALKALINE PHOSPHATASE 53 U/L (40-136); BILIRUBIN,TOTAL 0.2 MG/DL (0.1-1.0); BUN/CREATININE RATIO 6; CARBON DIOXIDE 24 MMOL/L (21-32); CHLORIDE 106 MMOL/L (98-107); CREATININE SERUM 0.77 MG/DL (0.60-1.30); GFR ESTIMATED > 60; GLUCOSE 107 MG/DL (70-105); POTASSIUM 3.3 MMOL/L (3.6-5.0); SODIUM 139 MMOL/L (135-145); TOTAL PROTEIN 7.6 GM/DL (6.4-8.2)
--- NOTE | 2018-09-02 19:44 | Diagnostic Imaging Report ---
INDICATION: Elevated blood pressure, feels a rib out of place. EXAMINATION: 2 view chest from 09/02/2018. FINDINGS: Two views of the chest. The heart and pulmonary vasculature appear unremarkable. There are no infiltrates, effusions or pneumothorax. IMPRESSION: Negative chest. Dictated by: Dictated on workstation # [id number]
[2018-09-02 19:50] LABS: AMPHETAMINE SCREEN, URINE NEGATIVE (NEGATIVE); BARBITURATE SCREEN URINE NEGATIVE (NEGATIVE); BENZODIAZEPINES SCREEN URINE NEGATIVE (NEGATIVE); CANNABINOID SCREEN, URINE NEGATIVE (NEGATIVE); COCAINE SCREEN URINE NEGATIVE (NEGATIVE); METHADONE STAT NEGATIVE (NEGATIVE); METHAMPHETAMINE SCREEN URINE S NEGATIVE (NEGATIVE); OPIATE SCREEN URINE NEGATIVE (NEGATIVE); OXYCODONE STAT NEGATIVE (NEGATIVE); PROPOXYPHENE STAT NEGATIVE (NEGATIVE); TRICYCLIC ANTIDEPRESSANTS SCRE NEGATIVE (NEGATIVE)
[2018-09-02 21:58] VITALS: BP 158/86
== END 2018-09-02 21:58 | disposition home or self-care (01) ==
LOC: EDUNIT# 18:01 → ER 18:03
DX: R00.2 Palpitations (principal); K21.9 Gastro-esophageal reflux disease without esophagitis; Z90.710 Acquired absence of both cervix and uterus; Z82.49 Family history of ischemic heart disease and other diseases of the circulatory system; Z87.59 Personal history of other complications of pregnancy, childbirth and the puerperium; Z87.448 Personal history of other diseases of urinary system; Z87.19 Personal history of other diseases of the digestive system
CPT/HCPCS: 36415; 71046; 80053; 80306; 84439; 84443; 84484; 85025

== ENCOUNTER 2019-05-08 13:16 | Emergency (ER) | payer BC ==
[~2019-05-08] VITALS: Ht 157.5 cm; Wt 70.3 kg
--- OUTSIDE RECORDS SUMMARY | 2019-05-08 13:23 | XMS REPORT ---
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 Name Role Phone VILMA VALENCIA Unavailable PROBLEMS Type Condition ICD9-CM Code [id number] Code Onset Dates Condition Status SNOMED Code Problem Seasonal allergic rhinitis due to pollen J30.1 Active [id number] ALLERGIES No Known Allergies ENCOUNTERS Encounter Location Date Diagnosis [facility] [id number] [place] [id number] Aug, Acute left otitis media H66.92 [facility] [id number] [place] [phone] Mar, Sore throat J02.9 and Seasonal allergic rhinitis due to pollen J30.1 [facility] [id number] [place] [phone] Jan, Allergic, initial encounter T78.40XA and Acute suppurative otitis media of left ear without spontaneous rupture of tympanic membrane, recurrence not specified H66.002 [facility] [id number] [place] [phone] Nov, Sore throat J02.9 and Seasonal allergic rhinitis due to pollen J30.1 IMMUNIZATIONS No Known Immunizations SOCIAL HISTORY Never Assessed REASON FOR VISIT left earache since last noc. [email or web address] PLAN OF CARE Activity Details Follow Up if not improving with PCP or reg follow up Reason: VITAL SIGNS Height 61 in 2018-09-11 Weight 186.6 lbs 2018-09-11 Temperature 98.2 degrees Fahrenheit 2018-09-11 Heart Rate 84 bpm 2018-09-11 Respiratory Rate 20 2018-09-11 BMI 35.25 kg/m2 2018-09-11 Blood pressure systolic 146 mmHg 2018-09-11 Blood pressure diastolic 86 mmHg 2018-09-11 MEDICATIONS Medication Instructions Dosage Frequency Start Date End Date Duration Status Fluticasone Propionate 50 MCG/ACT Nasally Once a day 1 spray in each nostril 24h Nov, Active Diflucan 150 MG Orally once 1 tablet Aug, 1 days Active Ibuprofen 200 MG Orally Three times a day 1 tablet with food or milk as needed 8h Active Acetaminophen 500 MG Orally every 6 hrs 1 capsule as needed 6h Active Protonix 40 MG Orally Once a day 1 tablet 24h Active Cefdinir 300 MG Orally every 12 hours as directed 12h Aug, 10 days Active RESULTS No Results PROCEDURES No Known procedures INSTRUCTIONS MEDICATIONS ADMINISTERED No Known Medications MEDICAL (GENERAL) HISTORY Type Description Date Surgical History [facility] 2012 Surgical History dental surgery...wisdom teeth 2007 Hospitalization History post surgery 2013 Hospitalization History post vaginal child 2003, 2006
--- OUTSIDE RECORDS SUMMARY | 2019-05-08 13:26 | XMS REPORT | Continuity of Care Document ---
Author Organization Unknown Address Unknown Allergies Active Description Code Type Severity Reaction [...] SKELTON DO Ot 462 07/10/2014 LOC DAVEY CLINICAL BIOCHEMICAL GENETICIST Ot 530.81 07/10/2014 LOC DAVEY APRN Ot [...] V45.89 03/31/2015 Ot 785.1 05/18/2015 FRANCO CASTANEDA HEEL NAILING MACHINE OPERATOR Ot 729.5 05/18/2015 FRANCO CASTANEDA HEEL NAILING MACHINE OPERATOR Ot 729.5 06/10/2015 DELROY CULP, MARY Higgins Ot V76.12 06/23/2015 FRANCO CASTANEDA HEEL NAILING MACHINE OPERATOR Ot 729.5 07/11/2015 FRANCO CASTANEDA HEEL NAILING MACHINE OPERATOR Ot 729.5 08/02/2015 FRANCO CASTANEDA HEEL NAILING MACHINE OPERATOR Ot 729.5 08/02/2015 FRANCO CASTANEDA HEEL NAILING MACHINE OPERATOR Ot M79.609 08/07/2015 CONCHITA CULP, RAZA Mancia Ot K21.0 GASTRO-ESOPHAGEAL REFLUX DISEASE WITH ES 08/07/2015 CONCHITA CULP, RAZA Mancia Ot R07.9 CHEST PAIN, UNSPECIFIED 08/07/2015 CONCHITA CULP, RAZA Mancia Ot Z79.899 OTHER ELECTRICIAN UNDERGROUND (CURRENT) DRUG THERAPY 08/12/2015 MARY POTTS MD Ot V76.12 08/12/2015 FRANCO CASTANEDA HEEL NAILING MACHINE OPERATOR Ot 729.5 08/12/2015 FRANCO CASTANEDAP Ot M79.609 [...] GASTRO-ESOPHAGEAL REFLUX DISEASE WITH ES 04/27/2016 JOY JONES ARIANA Ina Ot R07.89 OTHER CHEST PAIN 05/09/2016 MARY POTTS MD, Ot Z12.31 ENCNTR SCREEN MAMMOGRAM FOR MALIGNANT NE 05/23/2016 CAROLINE TSANG MD Ot K21.9 GASTRO-ESOPHAGEAL REFLUX DISEASE WITHOUT 05/23/2016 CAROLINE TSANG MD Ot Z01.818 ENCOUNTER FOR OTHER PREPROCEDURAL EXAMIN 05/24/2016 CAROLINE TSANG MD Ot K21.9 GASTRO-ESOPHAGEAL REFLUX DISEASE WITHOUT 05/24/2016 SHARAN CULP, SANJIVKI Ot Z01.818 ENCOUNTER FOR OTHER PREPROCEDURAL EXAMIN 05/24/2016 CAROLINE TSANG MD Ot K21.9 GASTRO-ESOPHAGEAL REFLUX DISEASE WITHOUT 05/24/2016 SHARAN CULP, CAROLINE Ot Z01.818 ENCOUNTER FOR OTHER PREPROCEDURAL EXAMIN [...] BITE (NONVENOMOUS) OF RIGHT UPPER 04/08/2017 LOC DVAEY CLINICAL BIOCHEMICAL GENETICIST Ot T78.40XA ALLERGY, UNSPECIFIED, INITIAL ENCOUNTER 06/10/2017 ORENDER DO, ALMAZ S Ot Z12.31 ENCNTR SCREEN MAMMOGRAM FOR MALIGNANT NE 09/04/2017 DELROY CULP, MARY Higgins Ot Z12.31 ENCNTR SCREEN MAMMOGRAM FOR MALIGNANT NE 09/27/2017 MARY POTTS MD Ot Z12.31 ENCNTR SCREEN MAMMOGRAM FOR MALIGNANT NE 09/27/2017 ORENDER DO, ALMAZ S Ot M25.562 PAIN IN LEFT KNEE 09/27/2017 ORENDER DO, ALMAZ S Ot Z12.31 ENCNTR SCREEN MAMMOGRAM FOR MALIGNANT NE 09/30/2017 DELROY CULP, MARY Higgins Ot Z12.31 ENCNTR SCREEN MAMMOGRAM FOR MALIGNANT NE 09/30/2017 ORENDER DO, ALMAZ S Ot M25.562 PAIN IN LEFT KNEE 09/30/2017 ORENDER DO, ALMAZ S Ot Z12.31 ENCNTR SCREEN MAMMOGRAM FOR MALIGNANT NE 05/13/2018 MARY POTTS MD Ot Z12.31 ENCNTR SCREEN MAMMOGRAM FOR MALIGNANT NE 05/13/2018 ORENDER DO, ALMAZ S Ot M25.562 PAIN IN LEFT KNEE 05/13/2018 ORENDER DO, ALMAZ S Ot Z12.31 ENCNTR SCREEN MAMMOGRAM FOR MALIGNANT NE 06/02/2018 KIRK SKELTON DO Ot K21.9 GASTRO-ESOPHAGEAL REFLUX DISEASE WITHOUT 06/02/2018 KIRK SKELTON DO Ot N30.80 OTHER CYSTITIS WITHOUT HEMATURIA 06/02/2018 KIRK SKELTON DO Ot N39.0 URINARY TRACT INFECTION, SITE NOT SPECIF 06/02/2018 KIRK SKELTON DO Ot R35.0 FREQUENCY OF MICTURITION 06/02/2018 KRIK SKELTON DO Ot Z87.19 PERSONAL HISTORY OF [...] DO Ot Z91.011 ALLERGY TO MILK PRODUCTS 09/02/2018 SABINA WILKINSON MD Ot K21.9 GASTRO-ESOPHAGEAL REFLUX DISEASE WITHOUT 09/02/2018 SABINA WILKINSON MD Ot R00.2 PALPITATIONS 09/02/2018 SABINA WILKINSON MD Ot Z82.49 FAMILY HX OF ISCHEM HEART DIS AND OTH DI 09/02/2018 SABINA WILKINSON MD Ot Z87.19 PERSONAL HISTORY OF OTHER DISEASES OF TH 09/02/2018 SABINA WILKINSON MD Ot Z87.448 PERSONAL HISTORY OF OTHER DISEASES OF UR 09/02/2018 SABINA WILKINSON MD Ot Z87.59 PERSONAL HISTORY OF COMP OF PREG, CHLDBR 09/02/2018 SABINA WILKINSON MD Ot Z90.710 ACQUIRED ABSENCE OF BOTH CERVIX AND UTER 09/04/2018 SABINA WILKINSON MD Ot K21.9 GASTRO-ESOPHAGEAL REFLUX DISEASE WITHOUT 09/04/2018 SABINA WILKINSON MD Ot R00.2 PALPITATIONS 09/04/2018 SABINA WILKINSON MD Ot Z82.49 FAMILY HX OF ISCHEM HEART DIS AND OTH DI 09/04/2018 SABINA WILKINSON MD Ot Z87.19 PERSONAL HISTORY OF OTHER DISEASES OF TH 09/04/2018 SABINA WILKINSON MD Ot Z87.448 PERSONAL HISTORY OF OTHER DISEASES OF UR 09/04/2018 SABINA WILKINSON MD Ot Z87.59 PERSONAL HISTORY OF COMP OF PREG, CHLDBR 09/04/2018 SABINA WILKINSON MD Ot Z90.710 ACQUIRED ABSENCE OF BOTH CERVIX AND UTER 09/08/2018 SABINA WILKINSON MD Ot K21.9 GASTRO-ESOPHAGEAL REFLUX DISEASE WITHOUT 09/08/2018 SABINA WILKINSON MD Ot R00.2 PALPITATIONS 09/08/2018 SABINA WILKINSON MD, Ot Z82.49 FAMILY HX OF ISCHEM HEART DIS AND OTH DI 09/08/2018 SABINA WILKINSON MD, Ot Z87.19 PERSONAL HISTORY OF OTHER DISEASES OF TH 09/08/2018 SABINA WILKINSON MD, Ot Z87.448 PERSONAL HISTORY OF OTHER DISEASES OF UR 09/08/2018 SABINA WILKINSON MD, Ot Z87.59 PERSONAL HISTORY OF COMP OF PREG, CHLDBR 09/08/2018 SABINA WILKINSON MD, Ot Z90.710 ACQUIRED ABSENCE OF BOTH CERVIX AND UTER Procedures There is no data. Results Test Result Range Complete blood count (CBC) with automated white blood cell (WBC) differential - 09/02/18 18:46 Blood leukocytes automated count (number/volume) 6.8 10*3/uL 4.3-11.0 Blood erythrocytes automated count (number/volume) 4.48 10*6/uL 4.35-5.85 Venous blood hemoglobin measurement (mass/volume) 11.3 g/dL 11.5-16.0 Blood hematocrit (volume fraction) 34 % 35-52 Automated erythrocyte mean corpuscular volume 76 [foz_us] 80-99 Automated erythrocyte mean corpuscular hemoglobin (mass per erythrocyte) 25 pg 25-34 Automated erythrocyte mean corpuscular hemoglobin concentration measurement (mass/volume) 33 g/dL 32-36 Automated erythrocyte distribution width ratio 14.5 % 10.0- 14.5 Automated blood platelet count (count/volume) 354 10*3/uL 130-400 Automated blood platelet mean volume measurement 10.0 [foz_us] 7.4-10.4 Automated blood neutrophils/100 leukocytes 30 % 42-75 Automated blood lymphocytes/100 leukocytes 61 % 12-44 Blood monocytes/100 leukocytes 7 % 0-12 Automated blood eosinophils/100 leukocytes 1 % 0-10 Automated blood basophils/100 leukocytes 0 % 0-10 Blood neutrophils automated count (number/volume) 2.0 10*3 1.8-7.8 Blood lymphocytes automated count (number/volume) 4.2 10*3 1.0-4.0 Blood monocytes automated count (number/volume) 0.5 10*3 0.0- 1.0 Automated eosinophil count 0.1 10*3/uL 0.0-0.3 Automated blood basophil count (count/volume) 0.0 10*3/uL 0.0-0.1 Comprehensive metabolic panel - 09/02/18 18:46 Serum or plasma sodium measurement (moles/volume) 139 mmol/L 135-145 Serum or plasma potassium measurement (moles/volume) 3.3 mmol/L 3.6-5.0 Serum or plasma chloride measurement (moles/volume) 106 mmol/L 98-107 Carbon dioxide 24 mmol/L 21-32 Serum or plasma anion gap determination (moles/volume) 9 mmol/L 5-14 Serum or plasma urea nitrogen measurement (mass/volume) 5 mg/dL 7-18 Serum or plasma creatinine measurement (mass/volume) 0.77 mg/dL 0.60-1.30 Serum or plasma urea nitrogen/creatinine mass ratio 6 NRG Serum or plasma creatinine measurement with calculation of estimated glomerular filtration rate > NRG Serum or plasma glucose measurement (mass/volume) 107 mg/dL 70-105 Serum or plasma calcium measurement (mass/volume) 9.0 mg/dL 8.5-10.1 Serum or plasma total bilirubin measurement (mass/volume) 0.2 mg/dL 0.1-1.0 Serum or plasma alkaline phosphatase measurement (enzymatic activity/volume) 53 U/L 40-136 Serum or plasma aspartate aminotransferase measurement (enzymatic activity/volume) 15 U/L 5-34 Serum or plasma alanine aminotransferase measurement (enzymatic activity/volume) 14 U/L 0-55 Serum or plasma protein measurement (mass/volume) 7.6 g/dL 6.4-8.2 Serum or plasma albumin measurement (mass/volume) 4.3 g/dL 3.2-4.5 CALCIUM CORRECTED 8.8 mg/dL 8.5-10.1 Serum or plasma troponin i.cardiac measurement (mass/volume) - 09/02/18 18:46 Serum or plasma troponin i.cardiac measurement (mass/volume) < ng/mL <0.30 THYROID STIMULATING HORMONE - 09/02/18 18:46 THYROID STIMULATING HORMONE 6.32 u[iU]/mL 0.35-4.94 Serum or plasma thyroxine (T4) free measurement (mass/volume) - 09/02/18 18:46 Serum or plasma thyroxine (T4) free measurement (mass/volume) 0.97 ng/dL 0.70-1.48 Urine drug screening test - 09/02/18 19:30 Urine phencyclidine detection by screening method NEGATIVE NEGATIVE Urine benzodiazepines detection by screening method NEGATIVE NEGATIVE Urine cocaine detection NEGATIVE NEGATIVE Urine amphetamines detection by screening method NEGATIVE NEGATIVE Urine methamphetamine detection by screening method NEGATIVE NEGATIVE Urine cannabinoids detection by screening method NEGATIVE NEGATIVE Urine opiates detection by screening method NEGATIVE NEGATIVE Urine barbiturates detection NEGATIVE NEGATIVE Screening urine tricyclic antidepressants detection NEGATIVE NEGATIVE Urine methadone detection by screening method NEGATIVE NEGATIVE Urine oxycodone detection NEGATIVE NEGATIVE Urine propoxyphene detection NEGATIVE NEGATIVE Encounters ACCT No. Visit Date/Time Discharge Status Pt. Type Provider Facility Loc./Unit Complaint 05/20/15 05/06/2019 16:56:36 ACT Outpatient Almaz Enriquez [id number] 04/18/2019 16:30:00 04/18/2019 23:59:59 CLS Outpatient JAIME CHANDRA APRN [facility] [id number] 09/02/2018 18:03:00 09/02/2018 21:58:00 DIS Emergency SABINA WILKINSON MD [facility] ER "BUTTERFLIES IN CHEST" [id number] 06/02/2018 04:19:00 06/02/2018 05:09:00 DIS Emergency KIRK SKELTON DO [facility] ER POSS UTI, BLOODY VAG DISCHARGE,PELVIC PAIN [id number] 05/22/2018 07:45:00 05/22/2018 23:59:59 CLS Preadmit ALMAZ ENRIQUEZ DO S [facility] RAD SCREENING [id number] 05/21/2017 09:33:00 05/21/2017 23:59:59 CLS Outpatient ALMAZ ENRIQUEZ DO S [facility] RAD SCREENING [id number] 04/08/2017 19:24:00 04/08/2017 20:10:00 DIS Emergency LOC DAVEY APRN [facility] ER RT ARM SWELLING/POSSIBLE BITE [id number] 06/23/2016 08:41:00 06/23/2016 23:59:59 CLS Outpatient ALMAZ ENRIQUEZ DO S [facility] RAD L KNEE PAIN [id number] 06/22/2016 18:26:00 06/22/2016 18:26:00 CAN Preadmit ALMAZ ENRIQUEZ DO [facility] RAD L KNEE PAIN [id number] 05/25/2016 08:01:00 05/25/2016 11:00:00 DIS Outpatient CAROLINE TSANG MD [facility] SDC REFLUX [id number] 05/23/2016 05:42:00 05/23/2016 10:17:00 DIS Outpatient CAROLINE TSANG MD [facility] PREOP REFLUX [id number] 05/08/2016 10:40:00 05/08/2016 23:59:59 CLS Outpatient MARY POTTS MD [facility] RAD ROUTINE SCREENING [id number] 04/25/2016 18:45:00 04/25/2016 22:03:00 DIS Emergency ARIANA HAMILTON DO [facility] ER SORE THROAT,ACID REFLUX [id number] 12/07/2015 04:26:00 12/07/2015 06:18:00 DIS Emergency VICKY CULP, MICHELLE Mann [facility] ER BACK PAIN,CHEST PAIN [id number] 08/07/2015 14:35:00 08/07/2015 16:51:00 DIS Emergency CONCHITA CULP, RAZA S [facility] ER CHEST PAIN [id number] 05/23/2015 08:58:00 05/23/2015 23:59:59 CLS Outpatient MARY POTTS MD [facility] RAD [id number] 05/03/2015 10:34:00 05/03/2015 23:59:59 CLS Outpatient FRANCO CASTANEDA [facility] RAD [id number] 03/20/2015 17:50:00 03/20/2015 18:55:00 DIS Emergency LOC DAVEY APRN [facility] ER [id number] 11/28/2014 21:41:00 11/28/2014 23:06:00 DIS Emergency APRIL SEGOVIA MD [facility] ER [id number] 09/26/2014 08:36:00 09/26/2014 09:33:00 DIS Emergency MICHELLE PERRY MD [facility] ER [id number] 07/10/2014 10:36:00 07/10/2014 11:44:00 DIS Emergency DAVEYLOC APRN [facility] ER [id number] 05/03/2014 11:40:00 05/03/2014 13:02:00 DIS Emergency NAFISA DO, KIRK K [facility] ER [id number] 12/19/2013 06:57:00 12/19/2013 07:16:00 DIS Emergency APRIL SEGOVIA MD [facility] ER [id number] 07/28/2013 11:09:00 10/26/2013 00:01:00 DIS Outpatient NAFISA DO, KIRK K [facility] CARD [id number] 07/28/2013 08:22:00 07/28/2013 10:43:00 DIS Emergency NAFISA DO, KIRK K [facility] ER [id number] 02/06/2013 13:05:00 02/06/2013 23:59:59 CLS Outpatient [id number] 05/07/2019 08:37:00 PEN Preadmit ORENDER DO, ALMAZ S [facility] CARD PALPITATIONS [id number] 12/26/2014 19:03:00 Document Registration [id number] 10/27/2013 11:30:00 Document Registration [id number] 10/01/2012 10:08:00 Document Registration [id number] 07/18/2012 09:48:00 Document Registration [id number] 10/27/2010 20:01:00 Document Registration [id number] 07/28/2010 00:15:00 Document Registration [id number] 07/16/2010 03:19:00 Document Registration
[2019-05-08 13:43] LABS: BASOPHILS % (AUTO) 0 % (0-10); EOSINOPHILS # (AUTO) 0.1 10^3/uL (0.0-0.3); EOSINOPHILS % (AUTO) 1 % (0-10); HEMATOCRIT 35 % (35-52); HEMOGLOBIN 11.6 G/DL (11.5-16.0); LYMPHOCYTES # (AUTO) 3.5 X 10^3 (1.0-4.0); LYMPHOCYTES % (AUTO) 52 % (12-44); MEAN CORPUSCULAR HEMOGLOBIN 25 PG (25-34); MEAN CORPUSCULAR HGB CONC 33 G/DL (32-36); MEAN CORPUSCULAR VOLUME 76 FL (80-99); MEAN PLATELET VOLUME 10.1 FL (7.4-10.4); MONOCYTES # (AUTO) 0.7 X 10^3 (0.0-1.0); MONOCYTES % (AUTO) 10 % (0-12); NEUTROPHILS # (AUTO) 2.5 X 10^3 (1.8-7.8); NEUTROPHILS % (AUTO) 38 % (42-75); PLATELET COUNT 357 10^3/uL (130-400); RED CELL DISTRIBUTION WIDTH 15.1 % (10.0-14.5); WHITE BLOOD COUNT 6.8 10^3/uL (4.3-11.0)
[2019-05-08] MEDS ORDERED: AMIN1TAB PO (13:53)
[2019-05-08 13:55] LABS: ALANINE AMINOTRANSFERASE 12 U/L (0-55); ALBUMIN 4.5 GM/DL (3.2-4.5); ALKALINE PHOSPHATASE 40 U/L (40-136); BILIRUBIN,TOTAL 0.3 MG/DL (0.1-1.0); BUN/CREATININE RATIO 23; CALCIUM 9.8 MG/DL (8.5-10.1); CARBON DIOXIDE 21 MMOL/L (21-32); CHLORIDE 103 MMOL/L (98-107); CREATININE SERUM 0.84 MG/DL (0.60-1.30); GFR ESTIMATED > 60; GLUCOSE 79 MG/DL (70-105); MAGNESIUM 2.1 MG/DL (1.8-2.4); POTASSIUM 3.8 MMOL/L (3.6-5.0); SODIUM 137 MMOL/L (135-145); TOTAL PROTEIN 7.8 GM/DL (6.4-8.2)
--- NOTE | 2019-05-08 15:06 | ED Cardiac General ---
History of Present Illness General Chief Complaint: Cardiac/General Problems Stated Complaint: PALPITATIONS Nursing Triage Note: THE PT IS ASSISTED TO THE ROOM BY WHEELCHAIR. NO DISTRESS IS SEEN ON ARRIVAL. LOC IS NORMAL FOR THE PT. THE PT DENIES ANY PAIN ON ARRIVAL. Source: patient Exam Limitations: no limitations History of Present Illness Date Seen by Provider: May 08, 2019 Time Seen by Provider: 13:37 Initial Comments This 43-year-old woman presents to the emergency room with complaints of palpitations for several weeks. She has seen her primary care provider and blood work was drawn. She does not know the results of the blood work. She has also been scheduled for a Holter monitor evaluation. She has noted 2 different types of palpitations. A few weeks ago she was having a sensation of a racing heart. This seemed to stop with the breathing. Most recently she has had a sensation of skipping or premature beats that sound consistent with PVCs. She denies any chest pain. She denies any significant health problems aside from GERD. Her primary care providers Dr. MCGRAW. She denies any stimulant use. Allergies and Home Medications Allergies Uncoded Allergies: MILK (Adverse Reaction, Intermediate, Throat swelling, 05/03/14) Patient Home Medication List Home Medication List Reviewed: Yes Review of Systems Review of Systems Constitutional: no symptoms reported EENTM: No Symptoms Reported Respiratory: No Symptoms Reported Cardiovascular: See HPI Gastrointestinal: No Symptoms Reported Genitourinary: No Symptoms Reported Musculoskeletal: no symptoms reported Skin: no symptoms reported Psychiatric/Neurological: No Symptoms Reported Endocrine: No Symptoms Reported Hematologic/Lymphatic: No Symptoms Reported Past Mtsozjx-Owhfzb-Gfvyqm Hx Patient Social History Recent Foreign Travel: No Contact w/Someone Who Travel: No Recent Infectious Disease Expo: No Recent Hopitalizations: No Physical Abuse: No Sexual Abuse: No Mistreated: No Fear: No Immunizations Up To Date Tetanus Booster (TDap): Less than 5yrs Seasonal Allergies Seasonal Allergies: No Past Medical History Surgeries: Yes (DENTAL; HYST/OVARIES INTACT; EGD'S ) Hysterectomy Respiratory: No Cardiac: No Palpitations Neurological: No : No Reproductive Disorders: Yes (Fibroid tumors, had 5 miscarragies) 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 Sexually Transmitted Disease: No Genitourinary: Yes Kidney Infection, Bladder Infection Gastrointestinal: Yes Gastroesophageal Reflux, Hiatal Hernia Musculoskeletal: No Endocrine: No HEENT: No Cancer: No Psychosocial: No Integumentary: No Blood Disorders: No Family Medical History Alzheimer's disease 19 FATHER Cardiovascular disease 19 MOTHER Completed stroke 19 MOTHER Diabetes mellitus 19 MOTHER Hypertension 19 MOTHER Kidney disease 19 MOTHER Myocardial infarction 19 MOTHER Respiratory disorder 19 MOTHER (COPD) Physical Exam Vital Signs Vital Signs - First Documented 05/08/19 05/08/19 13:36 15:15 Temp 98.1 Pulse 76 Resp 14 B/P (MAP) 156/87 (110) Pulse Ox 100 O2 Delivery Room Air Capillary Refill : Less Than 3 Seconds Height, Weight, BMI Height: 5'2.00" Weight: 155lbs. 1.0oz. 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 Skin: Normal Color, Warm/Dry Progress/Results/Core Measures Results/Orders Lab Results Laboratory Tests Test 05/08/19 13:30 Range/Units White Blood Count 6.8 4.3-11.0 10^3/uL Red Blood Count 4.65 4.35-5.85 10^6/uL Hemoglobin 11.6 11.5-16.0 G/DL Hematocrit 35 35-52 % Mean Corpuscular Volume 76 L 80-99 FL Mean Corpuscular Hemoglobin 25 25-34 PG Mean Corpuscular Hemoglobin Concent 33 32-36 G/DL Red Cell Distribution Width 15.1 H 10.0-14.5 % Platelet Count 357 130-400 10^3/uL Mean Platelet Volume 10.1 7.4-10.4 FL Neutrophils (%) (Auto) 38 L 42-75 % Lymphocytes (%) (Auto) 52 H 12-44 % Monocytes (%) (Auto) 10 0-12 % Eosinophils (%) (Auto) 1 0-10 % Basophils (%) (Auto) 0 0-10 % Neutrophils # (Auto) 2.5 1.8-7.8 X 10^3 Lymphocytes # (Auto) 3.5 1.0-4.0 X 10^3 Monocytes # (Auto) 0.7 0.0-1.0 X 10^3 Eosinophils # (Auto) 0.1 0.0-0.3 10^3/uL Basophils # (Auto) 0.0 0.0-0.1 10^3/uL Sodium Level 137 135-145 MMOL/L Potassium Level 3.8 3.6-5.0 MMOL/L Chloride Level 103 98-107 MMOL/L Carbon Dioxide Level 21 21-32 MMOL/L Anion Gap 13 5-14 MMOL/L Blood Urea Nitrogen 19 H 7-18 MG/DL Creatinine 0.84 0.60-1.30 MG/DL Estimat Glomerular Filtration Rate > 60 BUN/Creatinine Ratio 23 Glucose Level 79 70-105 MG/DL Calcium Level 9.8 8.5-10.1 MG/DL Corrected Calcium 9.4 8.5-10.1 MG/DL Magnesium Level 2.1 1.8-2.4 MG/DL Total Bilirubin 0.3 0.1-1.0 MG/DL Aspartate Amino Transf (AST/SGOT) 18 5-34 U/L Alanine Aminotransferase (ALT/SGPT) 12 0-55 U/L Alkaline Phosphatase 40 40-136 U/L Total Protein 7.8 6.4-8.2 GM/DL Albumin 4.5 3.2-4.5 GM/DL TSH [facility]unders Testing 2.40 0.35-4.94 UIU/ML My Orders Orders - MICHELLE PERRY MD Cbc With Automated Diff (05/08/19 13:37) Comprehensive Metabolic Panel (05/08/19 13:37) Magnesium (05/08/19 13:37) Thyroid Analyzer (05/08/19 13:37) Ed Iv/Invasive Line Start (05/08/19 13:37) Vital Signs/I&O 05/08/19 05/08/19 13:36 15:15 Temp 98.1 98.1 Pulse 76 94 Resp 14 14 B/P (MAP) 156/87 (110) 121/76 (91) Pulse Ox 100 100 O2 Delivery Room Air Blood Pressure Mean: 110 Progress Progress Note : Progress Note Workup was unremarkable. Rhythm was normal throughout her ER stay. White cell differential was predominantly lymphocytic. This may suggest a recent viral illness. See discharge instructions. Initial ECG Impression Date: May 08, 2019 Initial ECG Impression Time: 13:20 Initial ECG Rate: 81 Initial ECG Rhythm: Normal Sinus Initial ECG Intervals: Normal Initial ECG Impression: Normal Comment Normal sinus rhythm with no ST elevation or depression. No abnormal intervals or axis deviation. Departure Impression Primary Impression: Palpitations Disposition: 01 HOME, SELF-CARE Condition: Stable Departure-Patient Inst. Decision time for Depature: 14:50 Referrals: JAZMIN MCGRAW DO (PCP/Family) Primary Care Physician Patient Instructions: Palpitations (DC) Add. Discharge Instructions: Follow-through with the Holter monitor testing as directed by your primary care provider. Return to care if you have worsening symptoms which might include prolonged rapid heart rate, chest pain, shortness of breath, lightheadedness, or any other new or unusual symptoms. Avoid excessive stimulants such as caffeine, decongestants and medications, etc. All discharge instructions reviewed with patient and/or family. Voiced understanding. Copy Copies To 1: JAZMIN MCGRAW JOSHUA T MD May 08, 2019 15:06
[2019-05-08 15:15] VITALS: BP 121/76
== END 2019-05-08 15:15 | disposition home or self-care (01) ==
LOC: EDUNIT# 13:16 → ER 13:19
DX: R00.2 Palpitations (principal); K21.9 Gastro-esophageal reflux disease without esophagitis; Z82.49 Family history of ischemic heart disease and other diseases of the circulatory system; Z90.710 Acquired absence of both cervix and uterus; Z86.018 Personal history of other benign neoplasm
CPT/HCPCS: 36415; 80053; 83735; 84443; 85025; 93005

== ENCOUNTER → 2019-05-12 | Outpatient (CLI) | payer BC ==
[~2019-05-12] MED LIST changes: +AMIN1TAB PO
== END ==
LOC: CARD 08:00
PROVIDERS: ATTEND Family Medicine
DX: I49.1 Atrial premature depolarization (principal); R00.2 Palpitations
CPT/HCPCS: 93225; 93226

== ENCOUNTER → 2019-05-26 | Outpatient (CLI) | payer BC ==
--- NOTE | 2019-05-26 14:23 | Diagnostic Imaging Report ---
Indication: Routine screening. Comparison is made with prior mammogram 05/22/2018 and 05/21/2017. 2-D and 3-D bilateral screening mammography was performed with CAD. Both breasts are heterogeneously dense, limiting the sensitivity of mammography. No mass or malignant appearing microcalcifications are seen. The axillae are unremarkable. Impression: BI-RADS category one No mammographic features suspicious for malignancy are identified. ACR BI-RADS Category 1: Negative. Result letter will be mailed to the patient. Note: At least 10% of breast cancer is not imaged by mammography. Dictated by: Dictated on workstation # [id number]
== END ==
LOC: RAD 09:44
PROVIDERS: ATTEND Family Medicine
DX: Z12.31 Encounter for screening mammogram for malignant neoplasm of breast (principal)
CPT/HCPCS: 77067

== ENCOUNTER → 2019-05-28 | Outpatient (CLI) | payer BC | LOC: CARD 12:45 | PROVIDERS: ATTEND Family Medicine | DX: I51.7 Cardiomegaly (principal); I49.3 Ventricular premature depolarization; R00.8 Other abnormalities of heart beat | CPT/HCPCS: 93306 ==

== ENCOUNTER 2019-08-20 03:03 | Emergency (ER) | payer BC ==
[~2019-08-20] VITALS: Ht 165 cm; Wt 72.7 kg
[2019-08-20] MEDS ORDERED: PANT40TA2 PO (03:22)
--- NOTE | 2019-08-20 03:27 | ED EENT ---
History of Present Illness General Chief Complaint: General Problems/Pain Stated Complaint: CONGESTION, LEFT EAR PAIN Nursing Triage Note: Pt ambulates to RM 5 with c/o left ear pain and sinus congestion x 3 days. 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 Source: patient Exam Limitations: no limitations History of Present Illness Date Seen by Provider: Aug 20, 2019 Time Seen by Provider: 03:12 Initial Comments Patient presents to ER by private conveyance with chief complaint of 4 days of nasal congestion, cold-like symptoms and now the last day she has experienced some left-sided ear pain, pressure and fullness. No discharge from the ear. No history of surgeries on the ears nose or throat. No significant medical history. She did use ibuprofen last night around 10:00. She's not had any fevers chills nausea vomiting. She saw her doctor couple days ago and was told it was a viral upper respiratory tract illness and would run its course. Allergies and Home Medications Allergies Uncoded Allergies: MILK (Adverse Reaction, Intermediate, Throat swelling, 05/03/14) Patient Home Medication List Home Medication List Reviewed: Yes Review of Systems Review of Systems Constitutional: No chills, No diaphoresis, No fever Eyes: Denies Blindness, Denies Blurred Vision Ears: Denies Dizziness, Denies Pain Nose: see HPI; denies clots; congestion Mouth: denies clots, denies loose teeth Throat: denies pain, denies swelling Respiratory: No cough, No short of breath Cardiovascular: No chest pain, No edema All Other Systems Reviewed Negative Unless Noted: Yes Past Vzbtgvj-Amrgkr-Wgyrvf Hx Patient Social History Alcohol Use: Occasionally Uses Recreational Drug Use: No Smoking Status: Never a Smoker Recent Foreign Travel: No Contact w/Someone Who Travel: No Recent Infectious Disease Expo: No Recent Hopitalizations: No Immunizations Up To Date Tetanus Booster (TDap): Less than 5yrs Seasonal Allergies Seasonal Allergies: No Past Medical History Surgeries: Yes (DENTAL; HYST/OVARIES INTACT; EGD'S ) Hysterectomy Respiratory: No Cardiac: No Palpitations Neurological: No Reproductive Disorders: Yes (Fibroid tumors, had 5 miscarragies) 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 Sexually Transmitted Disease: No Genitourinary: Yes Kidney Infection, Bladder Infection Gastrointestinal: Yes Gastroesophageal Reflux, Hiatal Hernia Musculoskeletal: No Endocrine: No HEENT: No Cancer: No Psychosocial: No Integumentary: No Blood Disorders: No Family Medical History Alzheimer's disease 19 FATHER Cardiovascular disease 19 MOTHER Completed stroke 19 MOTHER Diabetes mellitus 19 MOTHER Hypertension 19 MOTHER Kidney disease 19 MOTHER Myocardial infarction 19 MOTHER Respiratory disorder 19 MOTHER (COPD) Physical Exam Vital Signs Vital Signs - First Documented 08/20/19 03:14 Temp 36.1 Pulse 67 Resp 18 B/P (MAP) 132/83 (99) Pulse Ox 100 O2 Delivery Room Air Height, Weight, BMI Height: 5'2.00" Weight: 155lbs. 1.0oz. 70.281135wz; 26.00 BMI Method:Estimated General Appearance: WD/WN, no apparent distress Eyes: bilateral eye normal inspection, bilateral eye PERRL, bilateral eye EOMI Ears: right ear TM normal; left ear TM bulging, left ear other (clear, mucoid effusion without loss of the tympanic landmarks. No injection or erythema.); bilateral ear auricle normal, bilateral ear canal normal Nose: normal inspection; No discharge, No sinus tenderness Mouth/Throat: normal mouth inspection, pharynx normal Neck: non-tender, full range of motion, supple, normal inspection Cardiovascular: normal peripheral pulses, regular rate, rhythm Respiratory: no respiratory distress, no accessory muscle use Neurologic/Psychiatric: alert, oriented x 3 Skin: normal color, warm/dry Progress/Results/Core Measures Results/Orders Vital Signs/I&O 08/20/19 03:14 Temp 36.1 Pulse 67 Resp 18 B/P (MAP) 132/83 (99) Pulse Ox 100 O2 Delivery Room Air Blood Pressure Mean: 99 POS Progress Progress Note : Time: 03:24 Progress Note Offered a Toradol shot but she declined. She says she has Tylenol she can take. Counseled conservative management, warm compresses, fluticasone and if that fails we'll provide her with a prescription for some prednisone that she can try. Departure Impression Primary Impression: Mucoid otitis media of left ear with effusion Disposition: HOME, SELF-CARE Condition: Stable Departure-Patient Inst. Decision time for Depature: 03:25 Referrals: JAZMIN MCGRAW DO (PCP/Family) Primary Care Physician Patient Instructions: Serous Otitis Media (DC) Add. Discharge Instructions: Nasal saline spray 2 puffs each nostril as often as necessary to keep your nose moist. Drink plenty of fluids. Tylenol 1000 mg every 8 hours as needed for pain. Ibuprofen 800 mg every 8 hours as needed for pain. 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 If you don't feel you're getting some relief by day 4 then you may start taking the prednisone one tablet twice a day for the next 5 days. If you feel that your symptoms are worsening or you develop fever, tachycardia or the illness persists more than 7-10 days then you should follow-up with primary care for reevaluation. All discharge instructions reviewed with patient and/or family. Voiced understanding. Scripts Prednisone (Prednisone) 20 Mg Tab 20 MG PO BID for 5 Days, #10 TAB 0 Refills Prov: SABINA WILKINSON 08/20/19 Fluticasone Propionate (Flonase Allergy Relief) 9.9 Ml [place].susp 2 SPRAY NS DAILY for 7 Days, #1 EACH 0 Refills 2 SPRAYS PER NOSTRIL DAILY X 2 DAYS THEN 1 SPRAY DAILY Prov: SABINA WILKINSON 08/20/19 SABINA WILKINSON Aug 20, 2019 03:27 POS
[2019-08-20] MEDS ORDERED: FLUT9.9S NS (03:29)
[2019-08-20] MEDS ORDERED: PRD20T PO (03:29)
[2019-08-20 03:32] VITALS: BP 132/83
== END 2019-08-20 03:32 | disposition home or self-care (01) ==
LOC: EDUNIT# 03:03 → ER 03:05
DX: H65.92 Unspecified nonsuppurative otitis media, left ear (principal); K21.9 Gastro-esophageal reflux disease without esophagitis; Z90.710 Acquired absence of both cervix and uterus; Z82.49 Family history of ischemic heart disease and other diseases of the circulatory system
CPT/HCPCS: 99281

== ENCOUNTER 2019-09-07 14:39 | Emergency (ER) | payer BC ==
[~2019-09-07] VITALS: Ht 157.5 cm; Wt 79.0 kg
[~2019-09-07 14:39] MED LIST changes: +FLUT9.9S NS; +PANT40TA2 PO
--- NOTE | 2019-09-07 15:11 | ED Lower Extremity ---
General Chief Complaint: Lower Extremity Stated Complaint: R KNEE PAIN Nursing Triage Note: Pt amb to triage with c/o Rt knee discomfort. Pt reports onset of symptoms to be 09/04/19. Pt reports discomfort radiated distally to Rt thigh and Rt ankle. Denies numbness and tingling to extremity. AROM noted. Denies injury, fever, or chills. A&OX4. Nursing Sepsis Screen: No Definite Risk Source: patient Exam Limitations: no limitations History of Present Illness Date Seen by Provider: Sep 07, 2019 Time Seen by Provider: 14:50 Initial Comments 44-year-old female who presents to emergency room with complaints of right knee pain for the past 3 days. She reports pain has become worse radiating into her right thigh and right ankle. She denies known injury but is concerned she may have twisted. Onset: last week Pain/Injury Location: right knee Modifying Factors: Improves With Movement (pain with range of motion) Allergies and Home Medications Allergies Coded Allergies: metoclopramide (Unverified Allergy, Unknown, twitches, 08/20/19) Uncoded Allergies: MILK (Adverse Reaction, Intermediate, Throat swelling, 05/03/14) Home Medications Fluticasone Propionate 9.9 Ml [place].susp, 2 SPRAY NS DAILY 2 SPRAYS PER NOSTRIL DAILY X 2 DAYS THEN 1 SPRAY DAILY Prescribed by: SABINA WILKINSON on 08/20/19328 Pantoprazole Sodium 40 Mg Tablet.dr, 40 MG PO DAILY, (Reported) Prednisone 20 Mg Tab, 20 MG PO BID Prescribed by: SABINA WILKINSON on 08/20/19328 Patient Home Medication List Home Medication List Reviewed: Yes Review of Systems Constitutional: see HPI; No chills, No fever Musculoskeletal: see HPI, joint pain (right knee pain) All Other Systems Reviewed Negative Unless Noted: Yes Past Ddqogpr-Idifsd-Dhwyvc Hx Past Med/Social Hx: Reviewed Nursing Past Med/Soc Hx Patient Social History Recent Foreign Travel: No Contact w/Someone Who Travel: No Recent Infectious Disease Expo: No Recent Hopitalizations: No Immunizations Up To Date Tetanus Booster (TDap): Less than 5yrs Seasonal Allergies Seasonal Allergies: No Past Medical History Surgeries: Yes (DENTAL; HYST/OVARIES INTACT; EGD'S ) Hysterectomy Respiratory: No Cardiac: No (PVC's) Palpitations Neurological: No Reproductive Disorders: Yes (Fibroid tumors, had 5 miscarragies) 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 Sexually Transmitted Disease: No Genitourinary: Yes Kidney Infection, Bladder Infection Gastrointestinal: Yes Gastroesophageal Reflux, Hiatal Hernia Musculoskeletal: No Endocrine: No HEENT: No Cancer: No Psychosocial: No Integumentary: No Blood Disorders: No Family Medical History Reviewed Nursing Family Hx Alzheimer's disease 19 FATHER Cardiovascular disease 19 MOTHER Completed stroke 19 MOTHER Diabetes mellitus 19 MOTHER Hypertension 19 MOTHER Kidney disease 19 MOTHER Myocardial infarction 19 MOTHER Respiratory disorder 19 MOTHER (COPD) Physical Exam Vital Signs Vital Signs - First Documented 09/07/19 14:44 Temp 36.7 Pulse 95 Resp 17 B/P (MAP) 138/85 (102) Pulse Ox 100 O2 Delivery Room Air Capillary Refill : Less Than 3 Seconds Height, Weight, BMI Height: 5'2.00" Weight: 155lbs. 1.0oz. 70.712579fa; 31.00 BMI Method:Estimated General Appearance: WD/WN, no apparent distress Cardiovascular: normal peripheral pulses, regular rate, rhythm, no edema, no gallop, no JVD, no murmur Respiratory: chest non-tender, lungs clear, normal breath sounds, no respiratory distress, no accessory muscle use Knees: right knee pain, right knee other (pain with range of motion and pain with palpation of the kneecap) Neurologic/Tendon: normal sensation, normal motor functions, normal tendon func tions, responds to pain, no evidence tendon injury, other (normal capillary refill and distal pulses present.) Neurologic/Psychiatric: alert, normal mood/affect, oriented x 3 Skin: normal color, warm/dry Progress/Results/Core Measures Results/Orders My Orders Orders - JANE RAMOS Knee, Right, 3 Views (09/07/19 14:57) Vital Signs/I&O 09/07/19 14:44 Temp 36.7 Pulse 95 Resp 17 B/P (MAP) 138/85 (102) Pulse Ox 100 O2 Delivery Room Air Blood Pressure Mean: 102 POS Departure Impression Primary Impression: Knee pain Qualified Codes: M25.561 - Pain in right knee Disposition: 01 HOME, SELF-CARE Condition: Stable/Unchanged Departure-Patient Inst. Decision time for Depature: 15:39 Referrals: JAZMIN MCGRAW DO (PCP/Family) Primary Care Physician Patient Instructions: Knee Sprain (DC) Add. Discharge Instructions: You may use ibuprofen and Tylenol as directed by the bottle for pain relief. Follow-up with your primary care provider within 1 week for recheck. Call today for an appointment time. Wear the immobilizer as needed. Ice to the sore areas at 20 minute intervals. Return back to the emergency room for worsening symptoms or concerns as needed. All discharge instructions reviewed with patient and/or family. Voiced understanding. JANE RAMOS Sep 07, 2019 15:11 POS
--- NOTE | 2019-09-07 15:22 | Diagnostic Imaging Report ---
INDICATION: Right knee pain. FINDINGS: Three views of the right knee show no fracture, dislocation, or other acute abnormalities. IMPRESSION: Negative right knee. Dictated by: Dictated on workstation # [id number]
[2019-09-07 15:51] VITALS: BP 138/85
== END 2019-09-07 15:52 | disposition home or self-care (01) ==
LOC: EDUNIT# 14:39 → ER 14:39
DX: M25.561 Pain in right knee (principal); K21.9 Gastro-esophageal reflux disease without esophagitis; Z88.8 Allergy status to other drugs, medicaments and biological substances; Z90.710 Acquired absence of both cervix and uterus; Z82.49 Family history of ischemic heart disease and other diseases of the circulatory system
CPT/HCPCS: 73562

== ENCOUNTER 2019-11-30 17:19 | Emergency (ER) | payer BC ==
[~2019-11-30] VITALS: Ht 154.9 cm; Wt 85.0 kg
[2019-11-30] MEDS ORDERED: SULF1TAB35 PO (18:30)
--- NOTE | 2019-11-30 18:30 | ED Lower Extremity ---
General Chief Complaint: Lower Extremity Stated Complaint: SPOT ON LEG Nursing Triage Note: Patient ambulatory to FT1 with complaint of left lower leg drainage. Patient states she woke up this morning with a red blister/bump to the left lower leg and throughout the day it has been draining a white liquid. Patient states site is painful. There is no increased swelling or redness to the leg. Patient denies any recent injuries. Nursing Sepsis Screen: No Definite Risk Source: patient Exam Limitations: no limitations History of Present Illness Date Seen by Provider: Nov 30, 2019 Time Seen by Provider: 18:00 Initial Comments 44-year-old female who presents to the emergency room with complaints of lower left leg wound draining that started this morning with a red bump/blister to open throughout the day. The drainage is a purulent yellow/white in color. Denies fevers. Mild surrounding erythema Onset: this morning Pain/Injury Location: left leg Method of Injury: unknown Allergies and Home Medications Allergies Coded Allergies: metoclopramide (Unverified Allergy, Unknown, twitches, 08/20/19) Uncoded Allergies: MILK (Adverse Reaction, Intermediate, Throat swelling, 05/03/14) Home Medications Fluticasone Propionate 9.9 Ml [place].susp, 2 SPRAY NS DAILY 2 SPRAYS PER NOSTRIL DAILY X 2 DAYS THEN 1 SPRAY DAILY Prescribed by: SABINA WILKINSON on 08/20/19328 Pantoprazole Sodium 40 Mg Tablet.dr, 40 MG PO DAILY, (Reported) Prednisone 20 Mg Tab, 20 MG PO BID Prescribed by: SABINA WILKINSON on 08/20/19328 Past Nqevygq-Mcorcu-Imdgjb Hx Patient Social History Alcohol Use: Denies Use Recreational Drug Use: No Smoking Status: Never a Smoker 2nd Hand Smoke Exposure: No Recent Foreign Travel: No Contact w/Someone Who Travel: No Recent Infectious Disease Expo: No Recent Hopitalizations: No Physical Abuse: No Sexual Abuse: No Mistreated: No Fear: No Immunizations Up To Date Tetanus Booster (TDap): Less than 5yrs PED Vaccines UTD: Yes Seasonal Allergies Seasonal Allergies: No Past Medical History Surgeries: Yes (DENTAL; HYST/OVARIES INTACT; EGD'S ) Hysterectomy Respiratory: No Cardiac: No (PVC's) Palpitations Neurological: No Reproductive Disorders: Yes (Fibroid tumors, had 5 miscarragies) 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 Sexually Transmitted Disease: No Genitourinary: Yes Kidney Infection, Bladder Infection Gastrointestinal: Yes Gastroesophageal Reflux, Hiatal Hernia Musculoskeletal: No Endocrine: No HEENT: No Cancer: No Psychosocial: No Integumentary: No Blood Disorders: No Family Medical History Alzheimer's disease 19 FATHER Cardiovascular disease 19 MOTHER Completed stroke 19 MOTHER Diabetes mellitus 19 MOTHER Hypertension 19 MOTHER Kidney disease 19 MOTHER Myocardial infarction 19 MOTHER Respiratory disorder 19 MOTHER (COPD) Physical Exam Vital Signs Vital Signs - First Documented 11/30/19 17:50 Temp 36.8 Pulse 90 Resp 16 B/P (MAP) 156/71 (99) Pulse Ox 100 O2 Delivery Room Air Capillary Refill : Less Than 3 Seconds Height, Weight, BMI Height: 5'2.00" Weight: 155lbs. 1.0oz. 70.34[age]yo; 35.00 BMI Method:Estimated Progress/Results/Core Measures Results/Orders My Orders Orders - JANE RAMOS Wound Culture (11/30/19 18:08) Vital Signs/I&O 11/30/19 17:50 Temp 36.8 Pulse 90 Resp 16 B/P (MAP) 156/71 (99) Pulse Ox 100 O2 Delivery Room Air Blood Pressure Mean: 99 Departure Impression Primary Impression: Cellulitis Disposition: 01 HOME, SELF-CARE Condition: Stable/Unchanged Departure-Patient Inst. Decision time for Depature: 18:29 Referrals: JAZMIN MCGRAW DO (PCP/Family) Primary Care Physician Patient Instructions: Cellulitis (Skin Infection), Adult (DC) Add. Discharge Instructions: Take medications as directed. Follow-up with her primary care provider for recheck within 1 week. Return back to the emergency room for worsening symptoms or concerns as needed. All discharge instructions reviewed with patient and/or family. Voiced understanding. Scripts Sulfamethoxazole/Trimethoprim (Bactrim Ds Tablet) 1 Each Tablet 1 EACH PO BID for 7 Days, #14 TAB Prov: JANE RAMOS 11/30/19 JANE RAMOS Nov 30, 2019 18:30
[2019-11-30 18:40] VITALS: BP 156/71
== END 2019-11-30 18:41 | disposition home or self-care (01) ==
LOC: EDUNIT# 17:19 → ER 17:19
DX: L03.116 Cellulitis of left lower limb (principal); K21.9 Gastro-esophageal reflux disease without esophagitis; Z88.8 Allergy status to other drugs, medicaments and biological substances; Z79.51 Long term (current) use of inhaled steroids; Z79.52 Long term (current) use of systemic steroids; Z82.49 Family history of ischemic heart disease and other diseases of the circulatory system
CPT/HCPCS: 87070; 87205

== ENCOUNTER 2019-12-01 23:24 | Emergency (ER) | payer BC ==
[~2019-12-01] VITALS: Ht 167 cm; Wt 86.4 kg
[~2019-12-01 23:24] MED LIST changes: +SULF1TAB35 PO
[2019-12-02] MEDS ORDERED: ACYCLOVIR 400 MG TABLET (ZOVIRAX) PO ONE (00:30)
[2019-12-02] MEDS ORDERED: ACYC800T PO (00:31)
--- NOTE | 2019-12-02 00:31 | ED Integumentary General ---
General Chief Complaint: General Problems/Pain Stated Complaint: ITCHING ON LEG Nursing Triage Note: Pt to RM 9 with c/o skin concern on inner side of left ankle. Pt states she was seen here yesterday for same issue, was prescribed Bactrim and has taken a total of 3 doses. Pt states she woke up tonight with a intense itch on area and noticed an increased amount of swelling. Pt has area covered with a dressing on arrival, area has a fluid pocket present, pt states she has not noticed that until I took bandage off to examine. Source: patient Exam Limitations: no limitations History of Present Illness Date Seen by Provider: Dec 02, 2019 Time Seen by Provider: 00:15 Initial Comments This 44-year-old woman presents to the emergency room with a pruritic and painful rash on the medial aspect of the left ankle. She was seen yesterday and was prescribed Bactrim. She has taken multiple doses without improvement. The blisters were cultured yesterday and revealed a negative Gram stain with no growth on the culture. She has a wider area of itching and discomfort tonight. She denies any contacts such as poison osiel or other items that could've cause contact dermatitis. She did have chickenpox as a child. She reports psychosocial stress with little sleep recently. Allergies and Home Medications Allergies Coded Allergies: metoclopramide (Unverified Allergy, Unknown, twitches, 08/20/19) Uncoded Allergies: MILK (Adverse Reaction, Intermediate, Throat swelling, 05/03/14) Home Medications Acyclovir 800 Mg Tablet, 800 MG PO 5XD Prescribed by: MICHELLE OSULLIVAN on 12/02/19 0031 Fluticasone Propionate 9.9 Ml [place].susp, 2 SPRAY NS DAILY 2 SPRAYS PER NOSTRIL DAILY X 2 DAYS THEN 1 SPRAY DAILY Prescribed by: SABINA WILKINSON on 08/20/19 032 Pantoprazole Sodium 40 Mg Tablet.dr, 40 MG PO DAILY, (Reported) Prednisone 20 Mg Tab, 20 MG PO BID Prescribed by: SABINA WILKINSON on 08/20/19 032 Sulfamethoxazole/Trimethoprim 1 Each Tablet, 1 EACH PO BID Prescribed by: JANE RAMOS on 11/30/19 1830 Patient Home Medication List Home Medication List Reviewed: Yes Review of Systems Review of Systems Constitutional: no symptoms reported EENTM: no symptoms reported Respiratory: no symptoms reported Cardiovascular: no symptoms reported Gastrointestinal: no symptoms reported Musculoskeletal: no symptoms reported Skin: see HPI Psychiatric/Neurological: No Symptoms Reported Endocrine: No Symptoms Reported Hematologic/Lymphatic: No Symptoms Reported Past Gaucyqt-Oltkgc-Mwnftr Hx Past Med/Social Hx: Reviewed Nursing Past Med/Soc Hx Patient Social History Alcohol Use: Denies Use Recreational Drug Use: No Smoking Status: Never a Smoker 2nd Hand Smoke Exposure: No Recent Foreign Travel: No Contact w/Someone Who Travel: No Recent Infectious Disease Expo: No Recent Hopitalizations: No Physical Abuse: No Sexual Abuse: No Mistreated: No Fear: No Immunizations Up To Date Tetanus Booster (TDap): Less than 5yrs PED Vaccines UTD: Yes Seasonal Allergies Seasonal Allergies: No Past Medical History Surgeries: Yes (DENTAL; HYST/OVARIES INTACT; EGD'S ) Hysterectomy Respiratory: No Cardiac: No (PVC's) Palpitations Neurological: No Reproductive Disorders: Yes (Fibroid tumors, had 5 miscarragies) 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 Sexually Transmitted Disease: No Genitourinary: Yes Kidney Infection, Bladder Infection Gastrointestinal: Yes Gastroesophageal Reflux, Hiatal Hernia Musculoskeletal: No Endocrine: No HEENT: No Cancer: No Psychosocial: No Integumentary: No Blood Disorders: No Family Medical History Reviewed Nursing Family Hx Alzheimer's disease 19 FATHER Cardiovascular disease 19 MOTHER Completed stroke 19 MOTHER Diabetes mellitus 19 MOTHER Hypertension 19 MOTHER Kidney disease 19 MOTHER Myocardial infarction 19 MOTHER Respiratory disorder 19 MOTHER (COPD) Physical Exam Vital Signs Vital Signs - First Documented 12/01/19 23:36 Temp 36.6 Pulse 80 Resp 20 B/P (MAP) 137/82 (100) Pulse Ox 100 O2 Delivery Room Air Capillary Refill : Less Than 3 Seconds General Appearance: WD/WN, no apparent distress HEENT: normal ENT inspection Respiratory: lungs clear, normal breath sounds, no respiratory distress Extremities: other (vesicular rash about 2 cm in diameter on the medial aspect of the left lower leg) 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 The Gram stain was negative and there was no growth on the culture. Symptoms seem most consistent with shingles. Acyclovir was administered in the ER and a prescription was provided. We discussed pain and itching management. Departure Impression Primary Impression: Shingles Qualified Codes: B02.9 - Zoster without complications Disposition: HOME, SELF-CARE Condition: Improved Departure-Patient Inst. Decision time for Depature: 00:29 Referrals: JAZMIN MCGRAW DO (PCP/Family) Primary Care Physician Patient Instructions: Shingles (DC) Add. Discharge Instructions: Start the acyclovir and complete the entire course. Please be aware that even with acyclovir you may develop more rash in the areas of discomfort. Keep the b listers and draining rash covered when around women or vulnerable persons with compromised immune system's. You may take Tylenol and/or ibuprofen for pain. Contact her primary care provider if you have any further problems or concerns. All discharge instructions reviewed with patient and/or family. Voiced understanding. Scripts Acyclovir (Acyclovir) 800 Mg Tablet 800 MG PO 5XD, #35 TAB Prov: MICHELLE PERRY MD 12/02/19 MICHELLE PERRY MD Dec 02, 2019 00:31
[2019-12-02 00:53] VITALS: BP 137/82
== END 2019-12-02 00:55 | disposition home or self-care (01) ==
LOC: EDUNIT# 23:24 → ER 23:25
DX: B02.9 Zoster without complications (principal); K21.9 Gastro-esophageal reflux disease without esophagitis; Z88.8 Allergy status to other drugs, medicaments and biological substances; Z79.51 Long term (current) use of inhaled steroids; Z79.52 Long term (current) use of systemic steroids; Z82.49 Family history of ischemic heart disease and other diseases of the circulatory system
CPT/HCPCS: 99283

== ENCOUNTER 2020-04-20 16:23 | Emergency (ER) | payer BC ==
[~2020-04-20] VITALS: Ht 154.9 cm; Wt 76.8 kg
[~2020-04-20 16:23] MED LIST changes: +ACYC800T PO
[2020-04-20 17:00] LABS: BASOPHILS % (AUTO) 0 % (0-10); EOSINOPHILS # (AUTO) 0.1 10^3/uL (0.0-0.3); EOSINOPHILS % (AUTO) 2 % (0-10); HEMATOCRIT 35 % (35-52); HEMOGLOBIN 11.6 G/DL (11.5-16.0); LYMPHOCYTES # (AUTO) 3.9 X 10^3 (1.0-4.0); LYMPHOCYTES % (AUTO) 67 % (12-44); MEAN CORPUSCULAR HEMOGLOBIN 26 PG (25-34); MEAN CORPUSCULAR HGB CONC 33 G/DL (32-36); MEAN CORPUSCULAR VOLUME 78 FL (80-99); MEAN PLATELET VOLUME 9.7 FL (7.4-10.4); MONOCYTES # (AUTO) 0.4 X 10^3 (0.0-1.0); MONOCYTES % (AUTO) 7 % (0-12); NEUTROPHILS # (AUTO) 1.3 X 10^3 (1.8-7.8); NEUTROPHILS % (AUTO) 23 % (42-75); PLATELET COUNT 333 10^3/uL (130-400); RED CELL DISTRIBUTION WIDTH 14.9 % (10.0-14.5); WHITE BLOOD COUNT 5.8 10^3/uL (4.3-11.0)
[2020-04-20 17:12] LABS: ALBUMIN 4.2 GM/DL (3.2-4.5); CHLORIDE 105 MMOL/L (98-107); POTASSIUM 3.4 MMOL/L (3.6-5.0); SODIUM 139 MMOL/L (135-145)
[2020-04-20 17:15] LABS: GLUCOSE 113 MG/DL (70-105); TOTAL PROTEIN 7.4 GM/DL (6.4-8.2)
[2020-04-20 17:16] LABS: CARBON DIOXIDE 23 MMOL/L (21-32)
[2020-04-20] MEDS ORDERED: ALPR0.5T PO (17:16)
[2020-04-20 17:17] LABS: BILIRUBIN,TOTAL 0.2 MG/DL (0.1-1.0)
--- NOTE | 2020-04-20 17:17 | ED Cardiac General ---
History of Present Illness General Chief Complaint: Cardiac/General Problems Stated Complaint: PALPITATIONS Source: patient Exam Limitations: no limitations History of Present Illness Date Seen by Provider: Apr 20, 2020 Time Seen by Provider: 17:13 Initial Comments To ER with reports of palpitations. She frequently has palpitations and follows with cardiology. She was told they were benign PVCs. Last night while at her exercise class she felt a tight squeezing sensation around her heart then suddenly felt as if it "popped" the heart rate dropped from 140-120. This was very brief but today she just doesn't feel right. She admits she is quite anxious. Timing/Duration: changing over time Location: central Prior CP/Workup: no prior chest pain NTG SL TANKERMAN: No ASA po TANKERMAN: No Allergies and Home Medications Allergies Coded Allergies: metoclopramide (Unverified Allergy, Unknown, twitches, 08/20/19) Uncoded Allergies: MILK (Adverse Reaction, Intermediate, Throat swelling, 05/03/14) Home Medications Acyclovir 800 Mg Tablet, 800 MG PO 5XD Prescribed by: MICHELLE OSULLIVAN on 12/02/19 0031 Fluticasone Propionate 9.9 Ml [place].susp, 2 SPRAY NS DAILY 2 SPRAYS PER NOSTRIL DAILY X 2 DAYS THEN 1 SPRAY DAILY Prescribed by: SABINA WILKINSON on 08/20/19 0329 Pantoprazole Sodium 40 Mg Tablet.dr, 40 MG PO DAILY, (Reported) Prednisone 20 Mg Tab, 20 MG PO BID Prescribed by: SABINA WILKINSON on 08/20/19 0329 Sulfamethoxazole/Trimethoprim 1 Each Tablet, 1 EACH PO BID Prescribed by: JANE RAMOS on 11/30/19 1830 Patient Home Medication List Home Medication List Reviewed: Yes Review of Systems Review of Systems Constitutional: see HPI EENTM: No Symptoms Reported Respiratory: No Symptoms Reported Cardiovascular: No Symptoms Reported (no chest pain today); Denies Chest Pain; Irregular Heart Rate, Palpitations Gastrointestinal: See HPI Genitourinary: No Symptoms Reported Musculoskeletal: no symptoms reported Skin: no symptoms reported Psychiatric/Neurological: No Symptoms Reported Endocrine: No Symptoms Reported Past Eenjxii-Uqdbum-Grgcfo Hx Patient Social History 2nd Hand Smoke Exposure: No Recent Foreign Travel: No Contact w/Someone Who Travel: No Recent Hopitalizations: No Immunizations Up To Date Tetanus Booster (TDap): Less than 5yrs PED Vaccines UTD: Yes Seasonal Allergies Seasonal Allergies: No Past Medical History Surgeries: Yes (DENTAL; HYST/OVARIES INTACT; EGD'S ) Hysterectomy Respiratory: No Cardiac: No (PVC's) Palpitations Neurological: No Reproductive Disorders: Yes (Fibroid tumors, had 5 miscarragies) 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 Sexually Transmitted Disease: No Genitourinary: Yes Kidney Infection, Bladder Infection Gastrointestinal: Yes Gastroesophageal Reflux, Hiatal Hernia Musculoskeletal: No Endocrine: No HEENT: No Cancer: No Psychosocial: No Integumentary: No Blood Disorders: No Family Medical History Alzheimer's disease 19 FATHER Cardiovascular disease 19 MOTHER Completed stroke 19 MOTHER Diabetes mellitus 19 MOTHER Hypertension 19 MOTHER Kidney disease 19 MOTHER Myocardial infarction 19 MOTHER Respiratory disorder 19 MOTHER (COPD) Physical Exam Vital Signs Capillary Refill : Height, Weight, BMI Height: 5'2.00" Weight: 155lbs. 1.0oz. [id number]; 30.00 BMI Method:Estimated General Appearance: No Apparent Distress, WD/WN Neck: Full Range of Motion, Normal Inspection Respiratory: No Accessory Muscle Use, No Respiratory Distress Cardiovascular: Regular Rate, Rhythm, Normal Peripheral Pulses Gastrointestinal: Normal Bowel Sounds, Non Tender, Soft Extremity: Normal Capillary Refill, Normal Inspection Neurologic/Psychiatric: Alert, Oriented x3 Skin: Normal Color, Warm/Dry Progress/Results/Core Measures Results/Orders Lab Results Laboratory Tests Test 04/20/20 16:51 Range/Units White Blood Count 5.8 4.3-11.0 10^3/uL Red Blood Count 4.49 4.35-5.85 10^6/uL Hemoglobin 11.6 11.5-16.0 G/DL Hematocrit 35 35-52 % Mean Corpuscular Volume 78 L 80-99 FL Mean Corpuscular Hemoglobin 26 25-34 PG Mean Corpuscular Hemoglobin Concent 33 32-36 G/DL Red Cell Distribution Width 14.9 H 10.0-14.5 % Platelet Count 333 130-400 10^3/uL Mean Platelet Volume 9.7 7.4-10.4 FL Neutrophils (%) (Auto) 23 L 42-75 % Lymphocytes (%) (Auto) 67 H 12-44 % Monocytes (%) (Auto) 7 0-12 % Eosinophils (%) (Auto) 2 0-10 % Basophils (%) (Auto) 0 0-10 % Neutrophils # (Auto) 1.3 L 1.8-7.8 X 10^3 Lymphocytes # (Auto) 3.9 1.0-4.0 X 10^3 Monocytes # (Auto) 0.4 0.0-1.0 X 10^3 Eosinophils # (Auto) 0.1 0.0-0.3 10^3/uL Basophils # (Auto) 0.0 0.0-0.1 10^3/uL My Orders Orders - LOC DAVEY APRN Ekg Tracing (04/20/20 16:52) Hcg,Qualitative Serum (04/20/20 16:52) Troponin I (04/20/20 16:52) Fibrin Degradation Products (04/20/20 16:52) Cbc With Automated Diff (04/20/20 16:52) Comprehensive Metabolic Panel (04/20/20 16:52) Departure Impression Primary Impression: Palpitations Additional Impression: Mild anxiety Disposition: 01 HOME, SELF-CARE Condition: Stable Departure-Patient Inst. Decision time for Depature: 17:15 Referrals: JAZMIN MCGRAW DO (PCP/Family) Primary Care Physician Patient Instructions: Anxiety, Adult (DC) Add. Discharge Instructions: 1. Follow-up with your industrial relations analyst. Use the anxiety medication as needed in the meantime if you feel anxious. Otherwise continue current medications. Return to ER for any concerns. All discharge instructions reviewed with patient and/or family. Voiced understanding. LOC DAVEY APRN Apr 20, 2020 17:17
[2020-04-20 17:18] LABS: ALKALINE PHOSPHATASE 39 U/L (40-136)
[2020-04-20 17:19] LABS: CREATININE SERUM 0.96 MG/DL (0.60-1.30); GFR ESTIMATED > 60
[2020-04-20 17:20] LABS: BUN/CREATININE RATIO 8
[2020-04-20 17:22] LABS: ALANINE AMINOTRANSFERASE 15 U/L (0-55)
[2020-04-20 18:04] VITALS: BP 124/64
--- OUTSIDE RECORDS SUMMARY | 2020-04-20 21:00 | XMS REPORT | CCD ---
Author Author Fay Enriquez D.O., DO [facility] Address [address] [place] [address] Phone Care Team Providers Care Controller Operations And Hr Manager Name Role Phone Almaz Enriquez D.O., PP Unavailable CCM Unavailable Summary Purpose Interface Exchange Insurance Providers Payer name Policy type / Coverage type Covered republican ID Effective Begin Date Effective End Date Blue Cross Blue Shield Blue Cross/Blue Shield [id number] Unknown Family history Mother Diagnosis Age At Onset Diabetes mellitus Type 1 Unknown Social History Social History Element Codes Description Effective Dates Marital status Unknown 09/17/[address]: 128329511 Has never smoked or chewed tobacco 04/25/2011 Marital status Unknown 01/02/2010 Number of children Unknown 2 01/02/2010 Allergies, Adverse Reactions, Alerts Substance Reaction Codes Entered Date Inactivated Date Status Milk _ Unknown 01/02/2010 No Inactive Date Active _ Unknown 07/19/2014 No Inactive Date Active _ Unknown 01/02/2010 No Inactive Date Active Problems Condition Codes Effective Dates Condition Status Shingles ICD-9: 053.9 ICD-10: B02.9 12/03/2019 Active Nasopharyngitis ICD-9: 460 ICD-10: J00 08/18/2019 Active Low back pain ICD-9: 724.2 ICD-10: M54.5 05/25/2019 Active Personal history of urinary (tract) infections ICD-9: V13.02 ICD-10: Z87.440 05/25/2019 Active Palpitations ICD-9: 785.1 ICD-10: R00.2 09/09/2018 Active Acute serous otitis media, recurrent, right ear ICD-9: 381.01 ICD-10: H65.04 12/16/2018 Active Other infective otitis externa, right ear ICD-9: 380.1 6 ICD-10: H60.391 12/16/2018 Active Dysuria ICD-9: 788.1 ICD-10: R30.0 12/02/2018 Active Abnormal results of thyroid function studies ICD-9: 24 6.9 ICD-10: R94.6 09/09/2018 Active Pain in right knee ICD-9: 719.46 ICD-10: M25.561 08/28/2018 Active Gastro-esophageal reflux disease without esophagitis I CD-9: 530.81 ICD-10: K21.9 08/18/2018 Active Encounter for screening mammogram for malignant neopla sm of breast ICD-9: V76.12 ICD-10: Z12.31 05/14/2017 Active Other polyuria ICD-9: 788.42 ICD-10: R35.8 10/21/2017 Active Left temporomandibular joint disorder, unspecified ICD -9: 524.60 ICD-10: M26.602 06/24/2017 Active Otalgia, left ear ICD-9: 388.70 ICD-10: H92.02 06/24/2017 Active Insect bite (nonvenomous) of right upper arm, sequela ICD-9: 906.2 ICD-10: S40.861S 04/11/2017 Active Other seasonal allergic rhinitis ICD-9: 477.9 ICD-10: J30.2 01/18/2017 Active Abnormal weight gain ICD-9: 783.1 ICD-10: R63.5 11/26/2016 Active Tinea corporis ICD-9: 110.5 ICD-10: B35.4 11/26/2016 Active Pain in left knee ICD-9: 719.46 ICD-10: M25.562 06/21/2016 Active Other specified disorders of Eustachian tube, left ear ICD-9: 381.81 ICD-10: H69.82 07/21/2013 Active Other specified disorders of Eustachian tube, bilatera l ICD-9: 381.81 ICD-10: H69.83 07/21/2013 Active Otitis media, unspecified, right ear ICD-9: 382.9 ICD-10: H66.91 04/09/2016 Active Acute pharyngitis, unspecified ICD-9: 462 ICD-10: J02.9 11/22/2015 Active Encounter for general adult medical examination withou t abnormal findings ICD-9: V70.0 ICD-10: Z00.00 10/02/2015 Active Myalgia ICD-9: 789.09 ICD-10: M79.1 07/31/2015 Active Unspecified abdominal pain ICD-9: 789.09 ICD-10: R10.9 07/31/2015 Active Proctalgia ICD-9: 569.42 06/27/2015 Active Rectal bleeding ICD-9: 569.3 06/27/2015 Active Right calf pain ICD-9: 729.5 05/01/2015 Active ABNORMAL WEIGHT GAIN ICD-9: 783.1 03/28/2015 Active MALAISE AND FATIGUE ICD-9: 780.79 03/28/2015 Active ALLERGIC RHINITIS ICD-9: 477.9 02/15/2015 Active Paresthesia of hand ICD-9: 782.0 09/30/2014 Active Tenosynovitis, de Quervain ICD-9: 727.04 09/30/2014 Activ e ABDOMINAL PAIN ICD-9: 789.00 07/19/2014 Active GERD ICD-9: 530.81 07/19/2014 Active TREMOR NEC ICD-9: 333.1 07/19/2014 Active PAIN, LOWER BACK ICD-9: 724.2 06/01/2014 Active SPASM OF MUSCLE ICD-9: 728.85 06/01/2014 Active STREPTOCOCCAL INFECTION GROUP A ICD-9: 041.01 12/25/2013 Active TONSILLITIS, ACUTE ICD-9: 463 12/25/2013 Active DYSURIA ICD-9: 788.1 12/17/2013 Active URI, ACUTE ICD-9: 465.9 08/14/2013 Active PALPITATIONS ICD-9: 785.1 08/03/2013 Active Dysfunction of left Eustachian tube ICD-9: 381.81 07/21/2013 Active Vaginal disorder ICD-9: 623.9 06/12/2013 Active Fibroid tumor ICD-9: 218.9 08/28/2012 Active Hyperglycemia ICD-9: 790.29 08/27/2012 Active CONJUNCTIVITIS NOS ICD-9: 372.30 02/18/2012 Active Hyperinsulinemia ICD-9: 251.1 01/08/2012 Active HYPOGLYCEMIA ICD-9: 251.2 01/08/2012 Active Leg cramps ICD-9: 729.82 12/25/2011 Active Pyelonephritis ICD-9: 590.80 09/17/2011 Active Thoracic back pain ICD-9: 724.1 09/17/2011 Active PHARYNGITIS, ACUTE ICD-9: 462 07/05/2011 Active ACNE NEC ICD-9: 706.1 04/11/2011 Active SINUSITIS, ACUTE ICD-9: 461.9 03/13/2011 Active Ankle pain ICD-9: 719.47 11/02/2010 Active URINARY TRACT INFECTION ICD-9: 599.0 08/01/2010 Active COUGH ICD-9: 786.2 07/25/2010 Active Allergic rhinitis Unknown 01/02/2010 Active Gastroesophageal reflux disease Unknown 01/02/2010 Active BRONCHITIS, ACUTE ICD-9: 466.0 01/02/2010 Active Medications Medication Codes Instructions Start Date Stop Date Status Fill Instructions Protonix 40 mg tablet,delayed release RxNorm: 594557 TA KE 1 TABLET BY MOUTH EVERY DAY 03/29/2020 06/26/2020 Active Protonix 40 mg tablet,delayed release RxNorm: 311217 TA KE 1 TABLET BY MOUTH EVERY DAY 12/17/2019 03/15/2020 Inactive Protonix 40 mg tablet,delayed release RxNorm: 054329 1 TABLET(S ) PO QD 09/15/2019 12/13/2019 Inactive Protonix 40 mg tablet,delayed release RxNorm: 774270 1 Tablet(s ) PO QD 06/05/2019 09/02/2019 Inactive Bactrim DS 800 mg-160 mg tablet RxNorm: 292731 1 Tablet(s) PO BID 0 05/25/2019 05/31/2019 Inactive eufbmjlo-pdtejbone-enuekfyxj 3.5 mg/mL-10,000 unit/mL- 1 % ear solution RxNorm: 627154 4 Drop(s) otic (ear) TID 12/17/2018 12/16/2018 Inactive rvbxxwcu-wrshznxyp-wephueuep 3.5 mg/mL-10,000 unit/mL- 1 % ear solution RxNorm: 390012 4 Drop(s) otic (ear) TID 12/17/2018 12/23/2018 Inactive rig ht ear ofloxacin 0.3 % ear drops RxNorm: 968862 5 Drop(s) otic (ear) BID 0 12/16/2018 12/16/2018 Inactive right ear amoxicillin 875 mg tablet RxNorm: 680696 1 Tablet(s) PO BID 019 12/25/2018 Inactive Diflucan 200 mg tablet RxNorm: 291914 1 Tablet(s) PO Q72H 12/16/2018 01/04/2019 Inactive Bactrim DS 800 mg-160 mg tablet RxNorm: 145504 1 Tablet(s) PO BID 0 12/02/2018 12/01/2018 Inactive Bactrim DS 800 mg-160 mg tablet RxNorm: 754958 1 Tablet(s) PO BID 0 12/02/2018 12/08/2018 Inactive Protonix 40 mg tablet,delayed release RxNorm: 927632 1 Tablet(s ) PO QD 09/23/2018 12/21/2018 Inactive Protonix 40 mg tablet,delayed release RxNorm: 670511 1 Tablet(s ) PO BID 09/18/2018 09/22/2018 Inactive Voltaren 1 % topical gel RxNorm: 595879 2 Gram(s) TOP QID to ri ght knee 08/28/2018 05/05/2019 Inactive Diflucan 150 mg tablet RxNorm: 487711 1 Tablet(s) PO Q7 2H Take one tablet today and repeat in 3 days if no improvement. 10/23/2017 08/17/2018 Inactive Diflucan 150 mg tablet RxNorm: 612252 1 Tablet(s) PO Q7 2H Take one tablet today and repeat in 3 days if no improvement. 10/04/2017 10/22/2017 Inactive ofloxacin 0.3 % ear drops RxNorm: 979066 4 Drop(s) OTIC TID for 1 week 06/24/2017 08/17/2018 Inactive Medrol (Scar) 4 mg tablets in a dose pack RxNorm: 797853 Take as directed 01/18/2017 04/10/2017 Inactive ketoconazole 2 % topical cream RxNorm: 407146 Applicati on TOP BID to lesion x 2 weeks 11/26/2016 01/17/2017 Inactive Protonix 40 mg tablet,delayed release RxNorm: 557797 1 TABLET(S ) PO QD 10/13/2016 05/05/2019 Inactive phentermine 37.5 mg tablet RxNorm: 654738 1 Tablet(s) PO QAM 201511/25/2016 Inactive Medrol (Scar) 4 mg tablets in a dose pack RxNorm: 783806 Take as directed 06/14/2016 08/22/2016 Inactive Diflucan 150 mg tablet RxNorm: 761140 1 Tablet(s) PO QD . May repeat in 2-3 days if needed. 04/10/2016 04/11/2016 Inactive amoxicillin 875 mg tablet RxNorm: 832758 1 Tablet(s) PO BID 016 04/18/2016 Inactive Medrol (Scar) 4 mg tablets in a dose pack RxNorm: 401567 Take as directed 04/10/2016 04/18/2016 Inactive Anusol-HC 25 mg suppository RxNorm: 3921283 1 Suppository RTL BID 0 06/28/2015 07/11/2015 Inactive Protonix 40 mg tablet,delayed release RxNorm: 684284 1 Tablet(s ) PO QD 04/27/2015 10/23/2015 Inactive Contrave 8 mg-90 mg tablet,extended release RxNorm: 6728929 1 Tablet(s) PO QAM for 1 week then 1 po BID for 1week then 1 in AM and 2 in PM for 1week then 2 po BID 03/29/2015 06/27/2015 Inactive [SAVINGS FOR UNI NSURED PATIENTS -- BIN:[id number], PCN: [id number], Group: [id number], ID# [id number], Process claim through [employer], for questions: . THIS IS NOT INSURANCE.] Flonase Allergy Relief 50 mcg/actuation nasal spray,suspensi on RxNorm: 2 [facility] NASAL QHS 02/15/2015 03/28/2015 Inactive Carafate 1 gram tablet RxNorm: 250813 1 Tablet(s) PO AC & HS 201406/13/2016 Inactive Diflucan 100 mg tablet RxNorm: 098727 1 Tablet(s) PO QD 09/30/2014 Inactive metformin ER 500 mg tablet,extended release 24hr RxNorm: 860 975 1/2 Tablet(s) PO QD 09/15/2014 12/29/2014 Inactive metformin ER 500 mg tablet,extended release 24hr RxNorm: 860 975 1/2 Tablet(s) PO QD 09/15/2014 09/14/2014 Inactive Carafate 1 gram tablet RxNorm: 263529 1 Tablet(s) PO AC & HS 201309/16/2014 Inactive Diflucan 100 mg tablet RxNorm: 690500 1 Tablet(s) PO QD 12/28/2013 Inactive amoxicillin 875 mg tablet RxNorm: 978071 1 Tablet(s) PO BID 014 01/03/2014 Inactive Protonix 40 mg tablet,delayed release RxNorm: 857400 1 Tablet(s ) PO QD 12/03/2013 07/25/2014 Inactive Zithromax 250 mg tablet RxNorm: 100598 2 Tablet(s) PO QD 09/15/2013 1 11/22/2012 Inactive Flagyl 500 mg tablet RxNorm: 505228 1 Tablet(s) PO Q12H 06/12/2013 Inactive Diflucan 100 mg tablet RxNorm: 545014 1 Tablet(s) PO QD 12/08/2012 Inactive Diflucan 100 mg tablet RxNorm: 186237 1 Tablet(s) PO QD 12/08/2012 Inactive azithromycin 250 mg tablet RxNorm: 599667 2 Tablet(s) PO QD ant ibiotic 10/30/2012 11/06/2012 Inactive Carafate 1 gram Tab RxNorm: 421353 1 Tablet(s) PO AC 05/27/201206/11 Inactive MetroCream 0.75 % Topical RxNorm: 926934 Application TOP BID 201106/11/2013 Inactive to face Protonix 40 mg Tab RxNorm: 897113 1 Tablet(s) PO QD 05/20/20122012 Inactive Dexilant 60 mg Capsule RxNorm: 832523 1 Capsule(s) PO QD 04/30/2012 0 05/26/2012 Inactive metformin ER 500 mg 24 hr Tab RxNorm: 920369 1 Tablet(s) PO QAM 10/29/2012 Inactive tobramycin 0.3 % Eye Drops RxNorm: 994191 1-2 Drop(s) O PH Q4H one to two drops in effected eye(s) every four hours for a maximum of 7 days. If no improvement in 1-2 days need eval 02/15/2012 02/19/2012 Inactive amoxicillin 875 mg tablet RxNorm: 209588 1 Tablet(s) PO BID 012 10/28/2011 Inactive Protonix 40 mg Tab RxNorm: 804825 1 Tablet(s) PO QD 04/11/20112010 Inactive cefuroxime axetil 500 mg Tab RxNorm: 888185 1 Tablet(s) PO BID 02/1303/22/2011 Inactive Ibuprofen 600 mg Tab RxNorm: 928803 1 Tablet(s) PO TID prn pain 06/24/2010 Inactive Levapak 750 mg Tablet RxNorm: 1 Tablet(s) PO QD 01/02/2010 0 Inactive Cortisporin otic (ear) RxNorm: 84330 otic (ear) No Start Date 019 Inactive Sprix 15.75 mg/spray Nasal [facility] RxNorm: 0214910 1 [facility] NASAL QID each nostril--for pain for 5 days No Start Date 01/07/2012 Inactive Children's Multivitamins with Iron chewable tablet RxNorm: 1 Tablet(s) PO QD No Start Date 08/17/2019 Inactive Promethazine-Codeine 6.25 mg-10 mg/5 mL Syrup RxNorm: 690361 1-2 Teaspoon(s) PO Q4H prn cough No Start Date 04/10/2011 Inactive metformin ER 500 mg 24 hr Tab RxNorm: 016173 1/2 Tablet(s) PO QAM N o Start Date 04/29/2012 Inactive metformin ER 500 mg 24 hr tablet,extended release RxNorm: 86 0975 1/2 Tablet(s) PO QD No Start Date 12/27/2012 Inactive Protonix 40 mg tablet,delayed release RxNorm: 208468 1 Tablet(s ) PO QD No Start Date 12/02/2013 Inactive Carafate 1 gram Tab RxNorm: 687985 1 Tablet(s) PO AC No Start Date Inactive Flonase 50 mcg/Actuation Nasal [facility] RxNorm: 3082331 1 [facility] JEROD AL BID No Start Date 04/10/2011 Inactive Protonix 40 mg tablet,delayed release RxNorm: 799892 1 Tablet(s ) PO BID No Start Date 12/29/2014 Inactive Protonix 40 mg Tab RxNorm: 314776 1 Tablet(s) PO QD No Start Date 04/2013 Inactive Dexilant 60 mg capsule, delayed release RxNorm: 429293 1 Capsul e(s) PO QD No Start Date 06/23/2017 Inactive Diflucan 150 mg tablet RxNorm: 448552 1 Tablet(s) PO Q7 2H Take one tablet today and repeat in 3 days if no improvement. No Start Date 10/03/2017 Inactive Protonix 40 mg tablet,delayed release RxNorm: 934291 1 Tablet(s ) PO QD No Start Date 04/26/2015 Inactive MetroCream 0.75 % Topical RxNorm: 691410 Application TOP BID No Sta rt Date 05/26/2012 Inactive to face Zithromax Z-Scar 250 mg Tab RxNorm: 964665 1 Tablet(s) PO QD No Star t Date 09/16/2011 Inactive as directed Protonix 40 mg tablet,delayed release RxNorm: 622225 1 Tablet(s ) PO BID No Start Date 09/17/2018 Inactive Medication Administered No Medication Administered data Immunizations No Immunization data Results Observation Observation Code Item Item Code Result Date S [facility] Location THYROID STIMULATING HORMONE 44595 TSH 1.360 uIU/ML 10/03/2015 Unknown COMPREHENSIVE METABOLIC 51442 AST 12 U/L 2014 Unknown COMPREHENSIVE METABOLIC 11312 ALT 9 IU/L 2014 Unknown COMPREHENSIVE METABOLIC 95089 BUN 10 MG/DL 2014 Unknown COMPREHENSIVE METABOLIC 90803 ALBUMIN 4.3 GM/DL 2014 Unknown COMPREHENSIVE METABOLIC 57069 CHLORIDE 104 MMOL/L 10/03 Unknown COMPREHENSIVE METABOLIC 45373 BILI TOT 0.3 MG/DL 2014 Unknown COMPREHENSIVE METABOLIC 89909 ALK PHOS 34 U/L 2014 Unknown COMPREHENSIVE METABOLIC 67002 SODIUM 137 MMOL/L 10/03 Unknown COMPREHENSIVE METABOLIC 21260 CREATININE 0.77 MG/DL 09/14 Unknown COMPREHENSIVE METABOLIC 91427 CALCIUM 9.6 MG/DL 2014 Unknown COMPREHENSIVE METABOLIC 86583 POTASSIUM 4.1 MMOL/L 10/03 Unknown COMPREHENSIVE METABOLIC 88436 PROT TOT 7.1 GM/DL 2014 Unknown COMPREHENSIVE METABOLIC 27350 Glucose 92 MG/DL 2014 Unknown COMPREHENSIVE METABOLIC 41388 BICARB 27 MMOL/L 2014 Unknown COMPREHENSIVE METABOLIC 52830 ANION GAP 6 MEQ/L 2014 Unknown LIPID GROUP 66999 HDL TEST 52 MG/DL 10/03/2015 Unknown LIPID GROUP 74112 TRIG 78 MG/DL 10/03/2015 Unknown LIPID GROUP 02247 TEST LDL 114 MG/DL 10/03/2015 Unknown LIPID GROUP 72628 CHOL 182 MG/DL 10/03/2015 Unknown LIPID GROUP 59459 RCHOL/HDL 3.50 RATIO 10/03/2015 Unknow n LIPID GROUP 34818 NON-HDL CH 130 MG/DL 10/03/2015 Unknow n GFR CALC 8568827 GFR AA >60 ML/MIN 10/03/2015 Unknown GFR CALC 5785577 GFR NON-AA >60 ML/MIN 10/03/2015 Unknown COMPLETE BLOOD COUNT 4000940 WBC 4.9 10e9/L 10/03/20 15 Unknown COMPLETE BLOOD COUNT [id number] RBC 4.49 10e12/L 2014 Unknown COMPLETE BLOOD COUNT 2592151 HGB 11.3 g/dL 5 Unknown COMPLETE BLOOD COUNT 6254922 HCT DET 34.7 % 5 Unknown COMPLETE BLOOD COUNT 2281675 MCV 77.3 fL 5 Unknown COMPLETE BLOOD COUNT 1262511 MCH 25.2 pg 5 Unknown COMPLETE BLOOD COUNT [id number] MCHC 32.6 g/dL 5 Unknown COMPLETE BLOOD COUNT [id number] PLT 314 10e9/L 10/03/20 15 Unknown COMPLETE BLOOD COUNT 3091099 MPV 10.4 fL 5 Unknown COMPLETE BLOOD COUNT 8804838 ALEXX % 41.0 % 5 Unknown COMPLETE BLOOD COUNT 2958360 LY % 47.7 % 5 Unknown COMPLETE BLOOD COUNT [id number] MON % 8.4 % 5 Unknown COMPLETE BLOOD COUNT 2662383 EOS % 2.7 % 5 Unknown COMPLETE BLOOD COUNT 1685472 BASO % 0.2 % 5 Unknown COMPLETE BLOOD COUNT 3578734 RDW 14.5 % 5 Unknown COMPLETE BLOOD COUNT 8944300 ABS ALEXX 2.01 10e9/L 015 Unknown COMPLETE BLOOD COUNT [id number] ABS LYMPH 2.34 10e9/L 015 Unknown COMPLETE BLOOD COUNT [id number] ABS MONO 0.41 10e9/L 015 Unknown COMPLETE BLOOD COUNT [id number] ABS EOS 0.13 10e9/L 015 Unknown COMPLETE BLOOD COUNT 6897003 ABS BASO 0.01 10e9/L 015 Unknown COMPLETE BLOOD COUNT 7895812 RDW-SD 39.6 fL 5 Unknown FREE T4 40656 FREE T4 1.08 NG/DL 10/03/2015 Unknown GFR CALC 7388831 GFR AA >60 ML/MIN 12/25/2012 Unknown GFR CALC 8902308 GFR NON-AA >60 ML/MIN 12/25/2012 Unknown INSULIN SERUM 42850 INSULIN 5.0 mU/L 12/25/2012 Unkno wn BASIC METABOLIC PANEL 62380 Glucose 82 MG/DL 12/26/19 13 Unknown BASIC METABOLIC PANEL 86571 CREATININE 0.83 MG/DL 2012 Unknown BASIC METABOLIC PANEL 78755 BUN 9 MG/DL 12/26/19 13 Unknown BASIC METABOLIC PANEL 28373 BICARB 26 MMOL/L 12/26/19 13 Unknown BASIC METABOLIC PANEL 18960 SODIUM 139 MMOL/L 013 Unknown BASIC METABOLIC PANEL 41145 POTASSIUM 4.3 MMOL/L 013 Unknown BASIC METABOLIC PANEL 54165 ANION GAP 8 MEQ/L 12/26/19 13 Unknown BASIC METABOLIC PANEL 94806 CHLORIDE 105 MMOL/L 013 Unknown BASIC METABOLIC PANEL 57153 CALCIUM 9.6 MG/DL 12/26/19 13 Unknown GFR CALC 4200881 GFR AA >60 ML/MIN 08/27/2012 Unknown GFR CALC 0335648 GFR NON-AA >60 ML/MIN 08/27/2012 Unknown COMPREHENSIVE METABOLIC 12510 AST 16 U/L 2011 Unknown COMPREHENSIVE METABOLIC 42993 ALT 11 IU/L 2011 Unknown COMPREHENSIVE METABOLIC 42854 BUN 9 MG/DL 2011 Unknown COMPREHENSIVE METABOLIC 96090 ALBUMIN 4.1 GM/DL 2011 Unknown COMPREHENSIVE METABOLIC 60070 CHLORIDE 106 MMOL/L 08/27 Unknown COMPREHENSIVE METABOLIC 74219 BILI TOT 0.2 MG/DL 2011 Unknown COMPREHENSIVE METABOLIC 84368 ALK PHOS 35 U/L 2011 Unknown COMPREHENSIVE METABOLIC 43693 SODIUM 137 MMOL/L 08/27 Unknown COMPREHENSIVE METABOLIC 37570 CREATININE 0.80 MG/DL 08/14 Unknown COMPREHENSIVE METABOLIC 60148 CALCIUM 9.2 MG/DL 2011 Unknown COMPREHENSIVE METABOLIC 24638 POTASSIUM 4.5 MMOL/L 08/27 Unknown COMPREHENSIVE METABOLIC 06974 PROT TOT 6.9 GM/DL 2011 Unknown COMPREHENSIVE METABOLIC 66392 Glucose 92 MG/DL 2011 Unknown COMPREHENSIVE METABOLIC 69096 BICARB 25 MMOL/L 2011 Unknown COMPREHENSIVE METABOLIC 03696 ANION GAP 6 MEQ/L 2011 Unknown INSULIN SERUM 50380 INSULIN 10.6 mU/L 08/27/2012 Unkno wn GFR CALC 4575941 GFR AA >60 ML/MIN 04/29/2012 Unknown GFR CALC 1861076 GFR NON-AA >60 ML/MIN 04/29/2012 Unknown GLYCOSYLATED HEMOGLOBIN TEST 32865 A1C HPLC 40222-6 5.6 % 0 04/29/2012 Unknown COMPREHENSIVE METABOLIC 36901 AST 14 U/L 2011 Unknown COMPREHENSIVE METABOLIC 89700 ALT 9 IU/L 2011 Unknown COMPREHENSIVE METABOLIC 63669 BUN 11 MG/DL 2011 Unknown COMPREHENSIVE METABOLIC 26843 ALBUMIN 4.4 GM/DL 2011 Unknown COMPREHENSIVE METABOLIC 46331 CHLORIDE 105 MMOL/L 04/29 Unknown COMPREHENSIVE METABOLIC 31246 BILI TOT 0.2 MG/DL 2011 Unknown COMPREHENSIVE METABOLIC 74420 ALK PHOS 36 U/L 2011 Unknown COMPREHENSIVE METABOLIC 18828 SODIUM 139 MMOL/L 04/29 Unknown COMPREHENSIVE METABOLIC 51225 CREATININE 0.80 MG/DL 04/13 Unknown COMPREHENSIVE METABOLIC 55914 CALCIUM 9.5 MG/DL 2011 Unknown COMPREHENSIVE METABOLIC 91632 POTASSIUM 4.4 MMOL/L 04/29 Unknown COMPREHENSIVE METABOLIC 15903 PROT TOT 6.6 GM/DL 2011 Unknown COMPREHENSIVE METABOLIC 61799 Glucose 81 MG/DL 2011 Unknown COMPREHENSIVE METABOLIC 96209 BICARB 26 MMOL/L 2011 Unknown COMPREHENSIVE METABOLIC 75502 ANION GAP 8 MEQ/L 2011 Unknown INSULIN SERUM 07313 INSULIN 28.2 mU/L 12/26/2011 Unkno wn COMPREHENSIVE METABOLIC 29236 AST 19 U/L 2011 Unknown COMPREHENSIVE METABOLIC 53847 ALT 15 IU/L 2011 Unknown COMPREHENSIVE METABOLIC 44202 BUN 8 MG/DL 2011 Unknown COMPREHENSIVE METABOLIC 07577 ALBUMIN 4.6 GM/DL 2011 Unknown COMPREHENSIVE METABOLIC 55161 CHLORIDE 105 MMOL/L 12/24 Unknown COMPREHENSIVE METABOLIC 54071 BILI TOT 0.4 MG/DL 2011 Unknown COMPREHENSIVE METABOLIC 52043 ALK PHOS 38 U/L 2011 Unknown COMPREHENSIVE METABOLIC 47811 SODIUM 141 MMOL/L 12/24 Unknown COMPREHENSIVE METABOLIC 94323 CREATININE 0.74 MG/DL 12/12 Unknown COMPREHENSIVE METABOLIC 85097 CALCIUM 9.4 MG/DL 2011 Unknown COMPREHENSIVE METABOLIC 79795 POTASSIUM 4.1 MMOL/L 12/24 Unknown COMPREHENSIVE METABOLIC 69303 PROT TOT 7.6 GM/DL 2011 Unknown COMPREHENSIVE METABOLIC 62317 Glucose 53 MG/DL 2011 Unknown COMPREHENSIVE METABOLIC 13826 BICARB 25 MMOL/L 2011 Unknown COMPREHENSIVE METABOLIC 39071 ANION GAP 11 MEQ/L 2011 Unknown COMPLETE BLOOD COUNT 44336 WBC 3.7 10e9/L 12/25/19 12 Unknown COMPLETE BLOOD COUNT 57930 RBC 4.53 10e12/L 2011 Unknown COMPLETE BLOOD COUNT 38704 HGB 11.4 g/dL 2 Unknown COMPLETE BLOOD COUNT 64499 HCT DET 35.4 % 2 Unknown COMPLETE BLOOD COUNT 84510 MCV 78.1 fL 2 Unknown COMPLETE BLOOD COUNT 70176 MCH 25.2 pg 2 Unknown COMPLETE BLOOD COUNT 54384 MCHC 32.2 g/dL 2 Unknown COMPLETE BLOOD COUNT 71038 PLT 327 10e9/L 12/25/19 12 Unknown COMPLETE BLOOD COUNT 13690 MPV 10.9 fL 2 Unknown COMPLETE BLOOD COUNT 89957 ALEXX % 30.9 % 2 Unknown COMPLETE BLOOD COUNT 41875 LY % 57.0 % 2 Unknown COMPLETE BLOOD COUNT 52129 MON % 9.1 % 2 Unknown COMPLETE BLOOD COUNT 44334 EOS % 2.7 % 2 Unknown COMPLETE BLOOD COUNT 09348 BASO % 0.3 % 2 Unknown COMPLETE BLOOD COUNT 90634 RDW 14.0 % 2 Unknown COMPLETE BLOOD COUNT 38136 ABS ALEXX 1.14 10e9/L 012 Unknown COMPLETE BLOOD COUNT 81874 ABS LYMPH 2.11 10e9/L 012 Unknown COMPLETE BLOOD COUNT 30872 ABS MONO 0.34 10e9/L 012 Unknown COMPLETE BLOOD COUNT 81435 ABS EOS 0.10 10e9/L 012 Unknown COMPLETE BLOOD COUNT 76924 ABS BASO 0.01 10e9/L 012 Unknown COMPLETE BLOOD COUNT 14543 RDW-SD 39.0 fL 2 Unknown GFR CALC [id number] GFR AA >60 ML/MIN 12/25/2011 Unknown GFR CALC 4040574 GFR NON-AA >60 ML/MIN 12/25/2011 Unknown AMYLASE 34167 AMYLASE 63 IU/L 05/31/2011 Unknown GFR CALC [id number] GFR AA >60 ML/MIN 05/31/2011 Unknown GFR CALC 6519359 GFR NON-AA >60 ML/MIN 05/31/2011 Unknown COMPLETE BLOOD COUNT 01617 WBC 5.0 10e9/L 05/31/20 11 Unknown COMPLETE BLOOD COUNT 07801 RBC 4.56 10e12/L 2010 Unknown COMPLETE BLOOD COUNT 60891 HGB 11.6 g/dL 1 Unknown COMPLETE BLOOD COUNT 62000 HCT DET 35.1 % 1 Unknown COMPLETE BLOOD COUNT 37883 MCV 77.0 fL 1 Unknown COMPLETE BLOOD COUNT 76520 MCH 25.4 pg 1 Unknown COMPLETE BLOOD COUNT 55179 MCHC 33.0 g/dL 1 Unknown COMPLETE BLOOD COUNT 05436 PLT 313 10e9/L 05/31/20 11 Unknown COMPLETE BLOOD COUNT 98907 MPV 11.0 fL 1 Unknown COMPLETE BLOOD COUNT 48486 ALEXX % 37.7 % 1 Unknown COMPLETE BLOOD COUNT 28464 LY % 49.1 % 1 Unknown COMPLETE BLOOD COUNT 58933 MON % 10.4 % 1 Unknown COMPLETE BLOOD COUNT 46635 EOS % 2.6 % 1 Unknown COMPLETE BLOOD COUNT 14672 BASO % 0.2 % 1 Unknown COMPLETE BLOOD COUNT 27775 RDW 13.7 % 1 Unknown COMPLETE BLOOD COUNT 62077 ABS ALEXX 1.89 10e9/L 011 Unknown COMPLETE BLOOD COUNT 66968 ABS LYMPH 2.46 10e9/L 011 Unknown COMPLETE BLOOD COUNT 91713 ABS MONO 0.52 10e9/L 011 Unknown COMPLETE BLOOD COUNT 35663 ABS EOS 0.13 10e9/L 011 Unknown COMPLETE BLOOD COUNT 51857 ABS BASO 0.01 10e9/L 011 Unknown COMPLETE BLOOD COUNT 95586 RDW-SD 37.4 fL 1 Unknown COMPREHENSIVE METABOLIC 97103 AST 16 U/L 2010 Unknown COMPREHENSIVE METABOLIC 10503 ALT 10 IU/L 2010 Unknown COMPREHENSIVE METABOLIC 36310 BUN 9 MG/DL 2010 Unknown COMPREHENSIVE METABOLIC 58310 ALBUMIN 4.4 GM/DL 2010 Unknown COMPREHENSIVE METABOLIC 45366 CHLORIDE 102 MMOL/L 05/31 Unknown COMPREHENSIVE METABOLIC 64715 BILI TOT 0.3 MG/DL 2010 Unknown COMPREHENSIVE METABOLIC 39769 ALK PHOS 36 U/L 2010 Unknown COMPREHENSIVE METABOLIC 95929 SODIUM 138 MMOL/L 05/31 Unknown COMPREHENSIVE METABOLIC 34390 CREATININE 0.72 MG/DL 05/14 Unknown COMPREHENSIVE METABOLIC 35736 CALCIUM 9.6 MG/DL 2010 Unknown COMPREHENSIVE METABOLIC 26775 POTASSIUM 3.9 MMOL/L 05/31 Unknown COMPREHENSIVE METABOLIC 92655 PROT TOT 7.2 GM/DL 2010 Unknown COMPREHENSIVE METABOLIC 11735 Glucose 82 MG/DL 2010 Unknown COMPREHENSIVE METABOLIC 67740 BICARB 29 MMOL/L 2010 Unknown COMPREHENSIVE METABOLIC 15311 ANION GAP 7 MEQ/L 2010 Unknown LIPASE 11282 LIPASE 11 IU/L 05/31/2011 Unknown Procedures Procedure Codes Date URINE CULTURE/ COLONY COUNT CPT-4: 03808 05/25/2019 STREP A ASSAY W/OPTIC CPT-4: 98754 12/16/2018 URINE CULTURE/ COLONY COUNT CPT-4: 58048 12/02/2018 URINALYSIS NONAUTO W/O SCOPE CPT-4: 90747 10/21/2017 URINE CULTURE/ COLONY COUNT CPT-4: 41627 10/21/2017 STREP A ASSAY W/OPTIC CPT-4: 50333 11/22/2015 ROUTINE VENIPUNCTURE CPT-4: 16561 10/03/2015 ASSAY OF FREE THYROXINE CPT-4: 32793 10/03/2015 ASSAY THYROID STIM HORMONE CPT-4: 69915 10/03/2015 COMPREHEN METABOLIC PANEL CPT-4: 84732 10/03/2015 COMPLETE CBC W/AUTO DIFF WBC CPT-4: 04622 10/03/2015 LIPID PANEL CPT-4: 68396 10/03/2015 URINALYSIS NONAUTO W/O SCOPE CPT-4: 17397 08/01/2015 URINE CULTURE/ COLONY COUNT CPT-4: 34181 08/01/2015 STREP A ASSAY W/OPTIC CPT-4: 45030 12/25/2013 URINALYSIS NONAUTO W/O SCOPE CPT-4: 87482 12/17/2013 THER/PROPH/DIAG INJ SC/IM CPT-4: 01195 07/21/2013 METHYLPREDNISOLONE 40 MG INJ CPT-4: J1030 07/21/2013 TRIAMCINOLONE ACET INJ NOS CPT-4: J3301 07/21/2013 C WET SC CPT-4: 51536 06/12/2013 ROUTINE VENIPUNCTURE CPT-4: 48748 12/25/2012 METABOLIC PANEL TOTAL CA CPT-4: 03804 12/25/2012 ASSAY OF INSULIN CPT-4: 72513 12/25/2012 ROUTINE VENIPUNCTURE CPT-4: 13277 08/27/2012 COMPREHEN METABOLIC PANEL CPT-4: 13855 08/27/2012 ASSAY OF INSULIN CPT-4: 97105 08/27/2012 ROUTINE VENIPUNCTURE CPT-4: 21300 04/29/2012 COMPREHEN METABOLIC PANEL CPT-4: 05646 04/29/2012 A1C GLYCOSYLATED HEMOGLOBIN TEST CPT-4: 72640 012 COMPLETE CBC W/AUTO DIFF WBC CPT-4: 05256 12/25/2011 COMPREHEN METABOLIC PANEL CPT-4: 21368 12/25/2011 ROUTINE VENIPUNCTURE CPT-4: 17790 12/25/2011 ASSAY OF INSULIN CPT-4: 92473 12/25/2011 THER/PROPH/DIAG INJ SC/IM CPT-4: 78144 09/17/2011 KETOROLAC TROMETHAMINE INJ CPT-4: J1885 09/17/2011 ROUTINE VENIPUNCTURE CPT-4: 82560 05/31/2011 COMPREHEN METABOLIC PANEL CPT-4: 64881 05/31/2011 COMPLETE CBC W/AUTO DIFF WBC CPT-4: 61602 05/31/2011 ASSAY OF LIPASE CPT-4: 83726 05/31/2011 ASSAY OF AMYLASE CPT-4: 66432 05/31/2011 URINALYSIS NONAUTO W/O SCOPE CPT-4: 77824 08/01/2010 URINE CULTURE/ COLONY COUNT CPT-4: 50784 08/01/2010 Vital Signs Date Vital 12/03/2019 Blood Pressure 1: 124/78 Code: 8480-6 Heart Rate 1: 88 bpm Respiratory Rate: 20 bpm SpO2: 100% Temperature: 36.8 (C) / 98.2 (F) We ight: 183 lbs 08/18/2019 Blood Pressure 1: 124/78 Code: 8480-6 Heart Rate 1: 82 bpm SpO2: 99% Temperature: 36.4 (C) / 97.5 (F) Weight: 174 lbs 05/25/2019 Blood Pressure 1: 125/85 Code: 8480-6 Heart Rate 1: 75 bpm Respiratory Rate: 20 bpm Weight: 170 lbs 05/06/2019 Blood Pressure 1: 138/80 Code: 8480-6 Heart Rate 1: 76 bpm Respiratory Rate: 18 bpm SpO2: 99% Temperature: 36.8 (C) / 98.2 (F) We ight: 173 lbs 12/16/2018 Blood Pressure 1: 130/80 Code: 8480-6 Heart Rate 1: 80 bpm Respiratory Rate: 16 bpm SpO2: 97% Temperature: 36.1 (C) / 97.0 (F) We ight: 184 lbs 09/09/2018 Blood Pressure 1: 126/86 Code: 8480-6 Heart Rate 1: 88 bpm Respiratory Rate: 20 bpm SpO2: 97% Temperature: 36.7 (C) / 98.1 (F) 08/28/2018 Blood Pressure 1: 136/86 Code: 8480-6 BMI: 33.5 Code: 54391-4 Heart Rate 1: 92 bpm Height: 5'2" Respiratory Rate: 20 bpm Temperature: 37 .1 (C) / 98.8 (F) Weight: 180 lbs 08/18/2018 Blood Pressure 1: 136/78 Code: 8480-6 Heart Rate 1: 91 bpm Respiratory Rate: 18 bpm SpO2: 99% Temperature: 36.4 (C) / 97.5 (F) We ight: 183 lbs 06/24/2017 Blood Pressure 1: 140/80 Code: 8480-6 BMI: 34.2 Code: 60879-6 Heart Rate 1: 76 bpm Height: 5'2" Respiratory Rate: 20 bpm Temperature: 36 .7 (C) / 98.0 (F) Weight: 184 lbs 04/11/2017 Blood Pressure 1: 132/86 Code: 8480-6 Heart Rate 1: 84 bpm Respiratory Rate: 20 bpm SpO2: 97% Temperature: 36.6 (C) / 97.8 (F) We ight: 181 lbs 01/18/2017 Blood Pressure 1: 122/80 Code: 8480-6 BMI: 31.6 Code: 64011-4 Heart Rate 1: 76 bpm Height: 5'2" Respiratory Rate: 20 bpm SpO2: 96% Tempera ture: 36.7 (C) / 98.1 (F) Weight: 170 lbs 11/26/2016 Blood Pressure 1: 128/80 Code: 8480-6 BMI: 31.0 Code: 58862-7 Heart Rate 1: 84 bpm Height: 5'2" Respiratory Rate: 20 bpm SpO2: 98% Tempera ture: 36.8 (C) / 98.2 (F) Weight: 167 lbs 10/25/2016 Blood Pressure 1: 118/76 Code: 8480-6 BMI: 30.9 Code: 97235-6 Heart Rate 1: 72 bpm Height: 5'2" Weight: 166 lbs 09/21/2016 Blood Pressure 1: 124/70 Code: 8480-6 BMI: 31.0 Code: 79500-5 Heart Rate 1: 80 bpm Height: 5'2" Weight: 167 lbs 08/23/2016 Blood Pressure 1: 138/82 Code: 8480-6 BMI: 31.6 Code: 70825-9 Heart Rate 1: 64 bpm Height: 5'2" Respiratory Rate: 20 bpm SpO2: 97% Tempera ture: 36.6 (C) / 97.9 (F) Weight: 170 lbs 06/14/2016 Blood Pressure 1: 118/68 Code: 8480-6 Heart Rate 1: 106 bpm Respiratory Rate: 20 bpm SpO2: 97% Temperature: 36.4 (C) / 97.6 (F) We ight: 178 lbs 04/19/2016 Blood Pressure 1: 122/68 Code: 8480-6 Heart Rate 1: 82 bpm Height: Respiratory Rate: 18 bpm SpO2: 98% Temperature: 35.7 (C) / 96.2 (F) We ight: 04/10/2016 Blood Pressure 1: 140/78 Code: 8480-6 BMI: 33.5 Code: 88877-1 Heart Rate 1: 82 bpm Height: 5'2" Respiratory Rate: 22 bpm SpO2: 97% Tempera ture: 36.3 (C) / 97.4 (F) Weight: 180 lbs 11/22/2015 Blood Pressure 1: 110/68 Code: 8480-6 BMI: 33.1 Code: 10829-9 Heart Rate 1: 80 bpm Height: 5'2" Respiratory Rate: 20 bpm Temperature: 36 .8 (C) / 98.3 (F) Weight: 178 lbs 06/28/2015 Blood Pressure 1: 124/70 Code: 8480-6 BMI: 31.0 Code: 48241-1 Heart Rate 1: 80 bpm Height: 5'2" Respiratory Rate: 20 bpm Temperature: 36 .8 (C) / 98.3 (F) Weight: 167 lbs 05/02/2015 Blood Pressure 1: 122/76 Code: 8480-6 BMI: 31.4 Code: 12315-4 Heart Rate 1: 78 bpm Height: 5'2" Respiratory Rate: 20 bpm Temperature: 36 .3 (C) / 97.4 (F) Weight: 169 lbs 03/29/2015 Blood Pressure 1: 126/78 Code: 8480-6 BMI: 30.9 Code: 09402-4 Heart Rate 1: 88 bpm Height: 5'2" Respiratory Rate: 20 bpm Temperature: 37 .1 (C) / 98.7 (F) Weight: 166 lbs 02/15/2015 Blood Pressure 1: 126/78 Code: 8480-6 BMI: 30.5 Code: 60291-5 Heart Rate 1: 76 bpm Height: 5'2" Respiratory Rate: 20 bpm Temperature: 36 .6 (C) / 97.8 (F) Weight: 164 lbs 12/30/2014 Blood Pressure 1: 118/84 Code: 8480-6 BMI: 30.1 Code: 94456-7 Heart Rate 1: 84 bpm Height: 5'2" Respiratory Rate: 20 bpm Temperature: 37 .0 (C) / 98.6 (F) Weight: 162 lbs 09/30/2014 Blood Pressure 1: 132/68 Code: 8480-6 BMI: 30.1 Code: 62382-8 Heart Rate 1: 84 bpm Height: 5'2" Respiratory Rate: 22 bpm Temperature: 36 .5 (C) / 97.7 (F) Weight: 162 lbs 07/19/2014 Blood Pressure 1: 126/78 Code: 8480-6 BMI: 29.7 Code: 88644-2 Heart Rate 1: 72 bpm Height: 5'2" Respiratory Rate: 20 bpm Temperature: 36 .8 (C) / 98.2 (F) Weight: 160 lbs 06/01/2014 Blood Pressure 1: 132/86 Code: 8480-6 BMI: 29.6 Code: 05550-8 Heart Rate 1: 72 bpm Height: 5'2" Respiratory Rate: 20 bpm Temperature: 36 .6 (C) / 97.8 (F) Weight: 159 lbs 12/25/2013 Blood Pressure 1: 114/82 Code: 8480-6 Heart Rate 1: 80 bpm Respiratory Rate: 14 bpm Temperature: 36.8 (C) / 98.2 (F) 12/17/2013 Blood Pressure 1: 124/82 Code: 8480-6 Heart Rate 1: 80 bpm Respiratory Rate: 20 bpm Temperature: 36.1 (C) / 96.9 (F) Weight: 157 lbs 09/15/2013 Blood Pressure 1: 122/80 Code: 8480-6 BMI: 29.6 Code: 94527-1 Heart Rate 1: 80 bpm Height: 5'2" Respiratory Rate: 20 bpm Temperature: 36 .8 (C) / 98.3 (F) Weight: 159 lbs 08/14/2013 Blood Pressure 1: 138/82 Code: 8480-6 BMI: 27.5 Code: 61316-9 Heart Rate 1: 66 bpm Height: 5'2" Respiratory Rate: 20 bpm Temperature: 36 .5 (C) / 97.7 (F) Weight: 148 lbs 08/03/2013 Blood Pressure 1: 126/82 Code: 8480-6 BMI: 29.1 Code: 88951-0 Heart Rate 1: 72 bpm Height: 5'1" Respiratory Rate: 20 bpm Temperature: 36 .6 (C) / 97.8 (F) Weight: 154 lbs 07/21/2013 Blood Pressure 1: 124/70 Code: 8480-6 BMI: 28.3 Code: 91314-5 Heart Rate 1: 64 bpm Height: 5'1" Respiratory Rate: 22 bpm Temperature: 36 .5 (C) / 97.7 (F) Weight: 150 lbs 06/12/2013 Blood Pressure 1: 124/ Code: 8480-6 BMI: 28.6 Code: 51288-2 Heart Rate 1: 88 bpm Height: 5'2" Respiratory Rate: 20 bpm Temperature: 36 .9 (C) / 98.4 (F) Weight: 154 lbs 12/25/2012 Blood Pressure 1: 128/84 Code: 8480-6 BMI: 27.0 Code: 09135-2 Heart Rate 1: 76 bpm Height: 5'2" Respiratory Rate: 20 bpm Temperature: 36 .9 (C) / 98.4 (F) Weight: 145 lbs 10/30/2012 Blood Pressure 1: 122/68 Code: 8480-6 BMI: 28.8 Code: 24788-0 Heart Rate 1: 60 bpm Height: 5'2" Temperature: 36.9 (C) / 98.5 (F) Weight: 155 lbs 08/28/2012 Blood Pressure 1: 112/80 Code: 8480-6 BMI: 29.7 Code: 52215-3 Heart Rate 1: 72 bpm Height: 5'2" Respiratory Rate: 20 bpm Temperature: 36 .9 (C) / 98.5 (F) Weight: 160 lbs 05/27/2012 Blood Pressure 1: 128/80 Code: 8480-6 BMI: 28.4 Code: 04278-3 Heart Rate 1: 72 bpm Height: 5'2" Respiratory Rate: 20 bpm Temperature: 36 .8 (C) / 98.2 (F) Weight: 153 lbs 04/30/2012 Blood Pressure 1: 116/70 Code: 8480-6 BMI: 28.8 Code: 45114-9 Heart Rate 1: 84 bpm Height: 5'2" Respiratory Rate: 20 bpm Temperature: 36 .7 (C) / 98.1 (F) Weight: 155 lbs 02/18/2012 Blood Pressure 1: 118/64 Code: 8480-6 BMI: 28.4 Code: 73081-7 Heart Rate 1: 68 bpm Height: 5'2" Temperature: 36.3 (C) / 97.4 (F) Weight: 153 lbs 01/08/2012 Blood Pressure 1: 132/80 Code: 8480-6 BMI: 28.8 Code: 70902-3 Heart Rate 1: 76 bpm Height: 5'2" Respiratory Rate: 20 bpm Temperature: 36 .7 (C) / 98.1 (F) Weight: 155 lbs 10/19/2011 Blood Pressure 1: 102/72 Code: 8480-6 BMI: 27.9 Code: 54609-8 Heart Rate 1: 70 bpm Height: 5'2" Temperature: 36.9 (C) / 98.5 (F) Weight: 150 lbs 09/17/2011 Blood Pressure 1: 126/72 Code: 8480-6 BMI: 28.3 Code: 35668-5 Heart Rate 1: 84 bpm Height: 5'2" Respiratory Rate: 20 bpm Temperature: 36 .7 (C) / 98.1 (F) Weight: 152 lbs 07/05/2011 Blood Pressure 1: 102/68 Code: 8480-6 Heart Rate 1: 88 bpm Temperature: 36.7 (C) / 98.1 (F) Weight: 145 lbs 05/31/2011 Blood Pressure 1: 126/82 Code: 8480-6 BMI: 27.3 Code: 94193-6 Heart Rate 1: 80 bpm Height: 5'2" Respiratory Rate: 20 bpm Temperature: 36 .6 (C) / 97.9 (F) Weight: 147 lbs 04/11/2011 Blood Pressure 1: 126/80 Code: 8480-6 Heart Rate 1: 72 bpm Temperature: 36.5 (C) / 97.7 (F) Weight: 147 lbs 03/13/2011 Blood Pressure 1: 118/72 Code: 8480-6 Heart Rate 1: 76 bpm Temperature: 36.9 (C) / 98.4 (F) Weight: 145 lbs 11/30/2010 Blood Pressure 1: 118/68 Code: 8480-6 Heart Rate 1: 70 bpm Temperature: 36.1 (C) / 97.0 (F) Weight: 143 lbs 11/02/2010 Blood Pressure 1: 116/70 Code: 8480-6 Heart Rate 1: 72 bpm Temperature: 36.2 (C) / 97.2 (F) Weight: 135 lbs 07/25/2010 Blood Pressure 1: 122/70 Code: 8480-6 Heart Rate 1: 68 bpm Temperature: 36.9 (C) / 98.4 (F) Weight: 130 lbs 01/02/2010 BMI: 25.7 Code: 44940-1 Heart Rate 1: 84 bpm Height: 5 '2" Temperature: 36.4 (C) / 97.5 (F) Weight: 138 lbs Functional Status No Functional Status data Reason For Visit Reason For Visit Effective Dates Notes follow up 12/03/2019 sore throat 08/18/2019 non productive flank pain 05/25/2019 left palpitations 05/06/2019 sore throat 12/16/2018 right is worse than the left painful urination 12/02/2018 follow up 09/09/2018 knee pain 08/28/2018 chest tightness 08/18/2018 low back pain 10/21/2017 otalgia 06/24/2017 follow up 04/11/2017 From ER cough 01/18/2017 weight gain/obesity 11/26/2016 weight check 10/25/2016 blood pressure check 09/21/2016 weight gain/obesity 08/23/2016 Patient would like t o start Phentermine- with family history of weight gain and patient's history of reflux knee pain 06/14/2016 Patient woke up with Sharp pain 1 week ago. Patient is unable to remember any event that could have caused the pain follow up 04/19/2016 otalgia 04/10/2016 [facility] and [facility] on Neomycin gtts and Amoxil for ear infection cough 11/22/2015 lab draw 10/03/2015 flank pain 08/01/2015 hematochezia 06/28/2015 pain, limb 05/02/2015 follow up 03/29/2015 ER fwup sore throat 02/15/2015 follow up 12/30/2014 ER fwup follow up 09/30/2014 ER follow up 07/19/2014 back pain 06/01/2014 cough 12/25/2013 3 days ago painful urination 12/17/2013 cough 09/15/2013 cough 08/14/2013 follow up 08/03/2013 Hospital fwup sore throat 07/21/2013 ~generic 06/12/2013 vaginal odor, "fishy " follow up 12/25/2012 Insulin Resistance cough 10/30/2012 follow up 08/28/2012 4mo fwup/discuss lab s lab draw 08/27/2012 hyperglycemia/insuli n follow up tomorrow follow up 05/27/2012 has normal heart cat h follow up 04/30/2012 discuss labs lab draw 04/29/2012 eye erythema 02/18/2012 follow up 01/08/2012 discuss labs before starting metformin sore throat 10/19/2011 follow up 09/17/2011 hospital fwup--still on Omnicef sore throat 07/05/2011 gastroesophageal reflux 05/31/2011 gastroesophageal reflux 04/11/2011 sinus congestion 03/13/2011 ~generic 11/30/2010 3 week F/U ankle spr ain. Not using crutches or cane. Continues to use ankle brace/wrap, states ankle aches more without support. Denies pain with ambulation, only discomfort comes intermittantly while at rest and in the mornings. follow up 11/02/2010 ER visit 10/27/10, ri ght ankle sprain. Started wearing shoes again today. Pt states pain is controlled with ibuprofen as long as there is no weight bearing. Has shooting pain up anterior leg with any weight bearing. sinus congestion 07/25/2010 cough 01/02/2010 thick yellow phlegm Encounters Encounter Performer Location Codes Date ([id number]) OFFICE/OUTPATIENT VISIT EST Diagnosis: Shingles[ICD10: B02.9] Almaz Carrasco [facility] CPT-4: 30853 12/03/2019 ([id number]) OFFICE/OUTPATIENT VISIT EST Diagnosis: Nasopharyngitis[ICD10: J00] Nikole ARROYO [facility] CPT-4: 01199 08/18/2019 ([id number]) OFFICE/OUTPATIENT VISIT EST Diagnosis: Low back pain[ICD10: M54.5] Diagnosis: Personal history of urinary (tract) infections[ICD10: Z87.440] Nikole Harvey ENRIQUEZ [facility] CPT-4: 57751 05/25/2019 ([id number]) OFFICE/OUTPATIENT VISIT EST Diagnosis: Palpitations[ICD10: R00.2] Almaz URIBE [facility] CPT-4: 26160 05/06/2019 OFFICE/OUTPATIENT VISIT EST Diagnosis: Other infective otitis externa, right ear[ICD10: H60.391] Diagnosis: Acute serous otitis media, recurrent, right ear[ICD10: H65.04] Elisha ENRIQUEZ DO [facility] CPT-4: 12495 12/16/2018 ([id number]) NURSE/OUTPATIENT VISIT EST Diagnosis: Dysuria[ICD10: R30.0] Almaz ENRIQUEZ DO [facility] CPT-4: 78585 12/02/2018 ([id number]) OFFICE/OUTPATIENT VISIT EST Diagnosis: Palpitations[ICD10: R00.2] Diagnosis: Abnormal results of thyroid function studies[ICD10: R94.6] Almaz ENRIQUEZ DO [facility] CPT-4: 08871 09/09/2018 ([id number]) OFFICE/OUTPATIENT VISIT EST Diagnosis: Pain in right knee[ICD10: M25.561] Almaz ENRIQUEZ DO [facility] CPT-4: 32425 08/28/2018 ([id number]) OFFICE/OUTPATIENT VISIT EST Diagnosis: Gastro-esophageal reflux disease without esophagitis[ICD10: K21.9] Almaz ENRIQUEZ DO [facility] CPT-4: 83522 08/18/2018 ([id number]) OFFICE/OUTPATIENT VISIT EST Diagnosis: Other polyuria[ICD10: R35.8] Almaz ENRIQUEZ DO [facility] CPT-4: 49367 10/21/2017 ([id number]) OFFICE/OUTPATIENT VISIT EST Diagnosis: Otalgia, left ear[ICD10: H92.02] Diagnosis: Left temporomandibular joint disorder, unspecified[ICD10: M26.602] Almaz ENRIQUEZ DO [facility] CPT-4: 41696 06/24/2017 OFFICE/OUTPATIENT VISIT EST Diagnosis: Insect bite (nonvenomous) of right upper arm, sequela[ICD10: S40.861S] Almaz ENRIQUEZ DO [facility] CPT-4: 93063 04/11/2017 ([id number]) OFFICE/OUTPATIENT VISIT EST Diagnosis: Other seasonal allergic rhinitis[ICD10: J30.2] Aracelis MAGANALINE Dee ENRIQUEZ DO [facility] CPT-4: 76181 01/18/2017 ([id number]) OFFICE/OUTPATIENT VISIT EST Diagnosis: Abnormal weight gain[ICD10: R63.5] Diagnosis: Tinea corporis[ICD10: B35.4] Almaz MAGANALINE Dee ENRIQUEZ DO [facility] CPT-4: 47822 11/26/2016 ([id number]) OFFICE/OUTPATIENT VISIT EST Diagnosis: Abnormal weight gain[ICD10: R63.5] Almaz COMBS HEVER Dee ENRIQUEZ DO [facility] CPT-4: 45304 08/23/2016 ([id number]) OFFICE/OUTPATIENT VISIT EST Diagnosis: Pain in left knee[ICD10: M25.562] Aracelis CALLAWAY Ledy Dee ENRIQUEZ DO [facility] CPT-4: 46599 06/14/2016 OFFICE/OUTPATIENT VISIT EST Diagnosis: Other specified disorders of Eustachian tube, left ear[ICD10: H69.82] Radha ENRIQUEZ DO [facility] CPT-4: 87924 04/19/2016 ([id number]) OFFICE/OUTPATIENT VISIT EST Diagnosis: Other specified disorders of Eustachian tube, bilateral[ICD10: H69.83] Diagnosis: Otitis media, unspecified, right ear[ICD10: H66.91] Aracelis ENRIQUEZ [facility] CPT-4: 19195 04/10/2016 OFFICE/OUTPATIENT VISIT EST Diagnosis: Acute pharyngitis, unspecified[ICD10: J02.9] Radha ENRIQUEZ DO [facility] CPT-4: 08547 11/22/2015 ([id number]) OFFICE/OUTPATIENT VISIT EST Diagnosis: Encounter for general adult medical examination without abnormal findings[ICD10: Z00.00] Almaz MAGANALINE Dee ENRIQUEZ DO [facility] CPT-4: 36048 10/03/2015 ([id number]) OFFICE/OUTPATIENT VISIT EST Diagnosis: Myalgia[ICD10: M79.1] Diagnosis: Unspecified abdominal pain[ICD10: R10.9] Almaz ENRIQUEZ [facility] CPT-4: 80125 08/01/2015 ([id number]) OFFICE/OUTPATIENT VISIT EST Diagnosis: Proctalgia[ICD9: 569.42] Diagnosis: Rectal bleeding[ICD9: 569.3] Almaz Zoe ENRIQUEZ DO [facility] CPT-4: 71614 06/28/2015 ([id number]) OFFICE/OUTPATIENT VISIT EST Diagnosis: Right calf pain[ICD9: 729.5] Za Jenn ALMAZ ENRIQUEZ [facility] CPT-4: 03457 05/02/2015 ([id number]) OFFICE/OUTPATIENT VISIT EST Diagnosis: Flank pain[ICD9: 789.00] Diagnosis: MALAISE AND FATIGUE[ICD9: 780.79] Diagnosis: ABNORMAL WEIGHT GAIN[ICD9: 783.1] Almaz Orendelvi MAGANALIN Ledy ManciaKaz ZOE [facility] CPT-4: 06538 03/29/2015 ([id number]) OFFICE/OUTPATIENT VISIT EST Diagnosis: ALLERGIC RHINITIS[ICD9: 477.9] Almaz MAGANALINE Blanche ENRIQUEZ [facility] CPT-4: 26152 02/15/2015 ([id number]) OFFICE/OUTPATIENT VISIT EST Diagnosis: GERD[ICD9: 530.81] Almaz Zoe MAGANALINE BlancheKaz ZOE [facility] CPT-4: 21395 12/30/2014 ([id number]) OFFICE/OUTPATIENT VISIT EST Diagnosis: Tenosynovitis, de Quervain[ICD9: 727.04] Diagnosis: Paresthesia of hand[ICD9: 782.0] Almaz Zoe MAGANALINE BlancheKaz [facility]OE [facility] CPT-4: 14266 09/30/2014 ([id number]) OFFICE/OUTPATIENT VISIT EST Diagnosis: ABDOMINAL PAIN[ICD9: 789.00] Diagnosis: GERD[ICD9: 530.81] Diagnosis: TREMOR NEC[ICD9: 333.1] Almaz CALDERAQUELINE BlancheKaz BIRTNI GRAHAM [employer] [facility] CPT-4: 56807 07/19/2014 ([id number]) OFFICE/OUTPATIENT VISIT EST Diagnosis: PAIN, LOWER BACK[ICD9: 724.2] Diagnosis: SPASM OF MUSCLE[ICD9: 728.85] Almaz ENRIQUEZ [facility] CPT-4: 07405 06/01/2014 OFFICE/OUTPATIENT VISIT EST Diagnosis: TONSILLITIS, ACUTE[ICD9: 463] Diagnosis: STREPTOCOCCAL INFECTION GROUP A[ICD9: 041.01] Radha ENRIQUEZ [facility] CPT-4: 60025 12/25/2013 OFFICE/OUTPATIENT VISIT EST Diagnosis: DYSURIA[ICD9: 788.1] Radha ENRIQUEZ [facility] CPT-4: 44322 12/17/2013 ([id number]) OFFICE/OUTPATIENT VISIT EST Diagnosis: BRONCHITIS, ACUTE[ICD9: 466.0] Almaz ENRIQUEZ [facility] CPT-4: 86186 09/15/2013 OFFICE/OUTPATIENT VISIT EST Diagnosis: URI, ACUTE[ICD9: 465.9] Za Barajas ALMAZ RYDER [facility] CPT-4: 35501 08/14/2013 ([id number]) OFFICE/OUTPATIENT VISIT EST Diagnosis: PALPITATIONS[ICD9: 785.1] Almaz OWEN [facility] CPT-4: 79438 08/03/2013 OFFICE/OUTPATIENT VISIT EST Diagnosis: SINUSITIS, ACUTE[ICD9: 461.9] Diagnosis: Dysfunction of left Eustachian tube[ICD9: 381.81] Radha ENRIQUEZ [facility] CPT-4: 48308 07/21/2013 OFFICE/OUTPATIENT VISIT EST Diagnosis: Vaginal disorder[ICD9: 623.9] Za Barajas ALMAZ Dee ENRIQUEZ [facility] CPT-4: 84536 06/12/2013 OFFICE/OUTPATIENT VISIT EST Diagnosis: HYPOGLYCEMIA NEC[ICD9: 251.1] Diagnosis: GERD[ICD9: 530.81] Almaz ENRIQUEZ [facility] CPT-4: 64227 12/25/2012 OFFICE/OUTPATIENT VISIT EST Diagnosis: COUGH[ICD9: 786.2] Diagnosis: PHARYNGITIS, ACUTE[ICD9: 462] Almaz ENRIQUEZ [facility] CPT-4: 00743 10/30/2012 OFFICE/OUTPATIENT VISIT EST Diagnosis: HYPOGLYCEMIA[ICD9: 251.2] Diagnosis: GERD[ICD9: 530.81] Diagnosis: Fibroid tumor[ICD9: 218.9] Almaz DIAZ JOJO [facility] CPT-4: 96059 08/28/2012 ([id number]) OFFICE/OUTPATIENT VISIT EST Diagnosis: Hyperglycemia[ICD9: 790.29] Almaz Mancia. O RENDER [facility] CPT-4: 10878 08/27/2012 ([id number]) OFFICE/OUTPATIENT VISIT EST Diagnosis: GERD[ICD9: 530.81] Almaz ENRIQUEZ [facility] CPT-4: 58315 05/27/2012 ([id number]) OFFICE/OUTPATIENT VISIT EST Diagnosis: HYPOGLYCEMIA NEC[ICD9: 251.1] Diagnosis: GERD[ICD9: 530.81] Almaz ENRIQUEZ [facility] CPT-4: 94280 04/30/2012 ([id number]) OFFICE/OUTPATIENT VISIT EST Diagnosis: HYPOGLYCEMIA[ICD9: 251.2] Almaz NEWBERRY NDER [facility] CPT-4: 77670 04/29/2012 OFFICE/OUTPATIENT VISIT EST Diagnosis: CONJUNCTIVITIS NOS[ICD9: 372.30] Almaz ENRIQUEZ [facility] CPT-4: 49832 02/18/2012 OFFICE/OUTPATIENT VISIT EST Diagnosis: Hyperinsulinemia[ICD9: 251.1] Diagnosis: HYPOGLYCEMIA[ICD9: 251.2] Almaz NEWBERRY NDER [facility] CPT-4: 40349 01/08/2012 ([id number]) OFFICE/OUTPATIENT VISIT EST Diagnosis: Leg cramps[ICD9: 729.82] Almaz NEWBERRYN PAULIE [facility] CPT-4: 48529 12/25/2011 OFFICE/OUTPATIENT VISIT EST Diagnosis: PHARYNGITIS, ACUTE[ICD9: 462] Almaz ENRIQUEZ DO [facility] CPT-4: 54673 10/19/2011 OFFICE/OUTPATIENT VISIT EST Diagnosis: Pyelonephritis[ICD9: 590.80] Diagnosis: Flank pain[ICD9: 789.00] Diagnosis: Recurrent UTI[ICD9: 599.0] Diagnosis: Thoracic back pain[ICD9: 724.1] Almaz ENRIQUEZ DO [facility] CPT-4: 71917 09/17/2011 OFFICE/OUTPATIENT VISIT EST Diagnosis: PHARYNGITIS, ACUTE[ICD9: 462] Almaz ENRIQUEZ DO [facility] CPT-4: 24037 07/05/2011 OFFICE/OUTPATIENT VISIT EST Diagnosis: GERD[ICD9: 530.81] Diagnosis: ABDOMINAL PAIN[ICD9: 789.00] Almaz ENRIQUEZ DO [facility] CPT-4: 55328 05/31/2011 OFFICE/OUTPATIENT VISIT EST Almaz NEWBERRY NDER [facility] CPT- 4: 26001 04/11/2011 ([id number]) OFFICE/OUTPATIENT VISIT EST Almaz LAFLEUR SKaz RYDERER [facility] CPT-4: 23636 03/13/2011 ([id number]) OFFICE/OUTPATIENT VISIT EST Almaz LAFLEUR SKaz NEWBERRYNDER DO [facility] CPT-4: 13325 11/30/2010 ([id number]) OFFICE/OUTPATIENT VISIT, EST Almaz TSAI SKaz NEWBERRYNDER DO [facility] CPT-4: 73644 11/02/2010 ([id number]) OFFICE/OUTPATIENT VISIT, EST Lucy Willson ALMAZ SKaz NEWBERRYNDER DO [facility] CPT-4: 33139 07/25/2010 ([id number]) OFFICE/OUTPATIENT VISIT, EST Almaz Zoe ENRIQUEZ DO [facility] CPT-4: 11414 01/02/2010 Plan of Care Planned Activity Notes Codes Status Date Visit Diagnosis Plan: Shingles Discussion: Finish all Bactrim and Acyclovir Notify if any worsening/return Looked up wound culture results and are negative ICD-9 : 053.9 ICD-10 : B02.9 12/03/2019 Appointment: Almaz Enriquez WPtel: [facility] [address] Hospital Follow Up 12/03/2019 Visit Diagnosis Plan: Nasopharyngitis Discussion: disc ussed that most likely viral illness. saline nasal spray given to patient with instructions to use prn congestion. if symptoms worsen or continued past 10 days, call clinic. tylenol/i buprofen prn pain or fever. ICD-9 : 460 ICD-10 : J00 08/18/2019 Appointment: Nikole Gabriel [address] [place] [address] ACUTE ILLNESS 08/18/2019 Visit Diagnosis Plan: Low back pain Discussion: urine dip neg. will send for culture. bactrim bid for 7 days to cover for infection due to patient's hx. instructed to push water. call office if no improvement tomorrow or to ED with worsening. ICD-9 : 724.2 ICD-10 : M54.5 05/25/2019 Appointment: Nikole Gabriel [address] [place] [address] ACUTE ILLNESS 05/25/2019 Visit Diagnosis Plan: Palpitations Discussion: Check C BC, iron, ferritin, TSH, Free T4, CMP Check 24hr holter Denies any energy drinks, supplements, etc. To ER if come on and persist with any associated dyspnea, dizziness, CP, etc. ICD-9 : 785.1 ICD-10 : R00.2 05/06/2019 Appointment: Almaz Enriquez WPtel: [facility] [place] [place] [id number] ACUTE ILLNESS 05/06/2019 Visit Diagnosis Plan: Acute serous otitis media, recur rent, right ear Discussion: Amoxicillin 875 BID x 10. Advised to take with food. Warm compress to ear ok. Tylenol or Motrin for pain. ICD-9 : 381.01 ICD-10 : H65.04 12/16/2018 Visit Diagnosis Plan: Other infective otitis externa, right ear Discussion: Keep ear free from water in shower. May put cotton ball in right ear canal during shower. Ofloxacin ear drops- 5 drops to right ear twice daily for 7 days. ICD-9 : 380.16 ICD-10 : H60.391 12/16/2018 Appointment: Elisha Leiva [address] [facility] ACUTE ILLNESS 12/16/2018 Patient Education: amoxicillin- [employer] Coupon [phone] [email or web address] Completed 12/16/2018 Appointment: Almaz Enriquez WPtel: [address] [place] [address] 12/02/2018 Visit Diagnosis Plan: Palpitations Discussion: Discuss ed likely from phenteramine and reminded her that she had tried phenteramine several years ago and had same type of reaction so recommend avoid stimulants and herbal supplements for weight loss ICD-9 : 785.1 ICD-10 : R00.2 09/09/2018 Visit Diagnosis Plan: Abnormal results of thyroid func tion studies Discussion: Will recheck TSH and free T4 in 2 weeks and see if back to normal ICD-9 : 246.9 ICD-10 : R94.6 09/09/2018 Appointment: Almaz Enriquez WPtel: [address] [place] [address] Hospital Follow Up 09/09/2018 Visit Diagnosis Plan: Pain in right knee Discussion: Danilo razo to Dr. Pako Lowry and topical voltaren ICD-9 : 719.46 ICD-10 : M25.561 08/28/2018 Appointment: Almaz Enriquez WPtel: [address] [place], [place] [id number] ACUTE ILLNESS 08/28/2018 Care Plan: Referral Order SNOMED-CT : [id number] Pending 08/28/2018 Visit Diagnosis Plan: Gastro-esophageal reflux disease without esophagitis Discussion: Left lower chest pain appears to be from GI etiology so will resume protonix 40mg po BID for next week and see if resolves, if improved then can go to protonix 40mg po daily ICD-9 : 530.81 ICD-10 : K21.9 08/18/2018 Appointment: Nikole Gabriel [address] ACUTE ILLNESS 08/18/2018 Patient Education: Patient Medication Summary Completed 05/13/2018 Care Plan: MAMMOGRAM SCREENING LOINC : 2 6347-5 Pending 05/13/2018 Appointment: Almaz Enriquez WPtel: [address] [place] [address] 10/21/2017 Patient Education: Patient Medication Summary Completed 10/21/2017 Visit Plan: Supportive care. Rest, Fluid s, Tylenol/Motrin prn fever or bodyaches. Notify if worsening symptoms. 06/24/2017 Visit Diagnosis Plan: Left temporomandibular joint dis order, unspecified Discussion: Topical aspercreme with lidocaine and see chiropracter ICD-9 : 524.60 ICD-10 : M26.602 06/24/2017 Visit NOS Plan: Plan Notes: Supportive care. Rest, Fluids... 06/24/2017 Visit Diagnosis Plan: Otalgia, left ear Discussion: Of laxacin otic drops for 1 week ICD-9 : 388.70 ICD-10 : H92.02 06/24/2017 Appointment: Almaz Enriquez WPtel: [address] [place] [address] ACUTE ILLNESS 06/24/2017 Patient Education: Patient Medication Summary Completed 06/24/2017 Patient Education: Patient Medication Summary Completed 05/14/2017 Visit Diagnosis Plan: Insect bite (nonvenomous) of rig ht upper arm, sequela Discussion: Finish all abx Add Zyrtec 10mg daily for 10 days ICD-9 : 906.2 ICD-10 : S40.861S 04/11/2017 Appointment: Almaz Enriquez WPtel: [address] [place] [address] ER Follow UP 04/11/2017 Patient Education: Patient Medication Summary Completed 04/11/2017 Visit Diagnosis Plan: Other seasonal allergic rhinitis Discussion: Add benadryl at bedtime Nasal rinses, steroid nasal spray Vicks and humidifier Monitor for signs of infection Follow up PRN ICD-9 : 477.9 ICD-10 : J30.2 01/18/2017 Appointment: Rogelio Aracelis [address] [place] [address] ACUTE ILLNESS 01/18/2017 Patient Education: Patient Medication Summary Completed 01/18/2017 Visit Diagnosis Plan: Abnormal weight gain Discussion: Long discussion about diet/exercise/lifestyle change--3month trial ICD-9 : 783.1 ICD-10 : R63.5 11/26/2016 Visit Diagnosis Plan: Tinea corporis Discussion: Ketoc onazole BID for 2 weeks Notify if persist or worsens ICD-9 : 110.5 ICD-10 : B35.4 11/26/2016 Appointment: Almaz Enriquez WPtel: [address] [place] [address] 11/22 confirm~sl FOLLOW UP 11/26/2016 Patient Education: Patient Medication Summary Completed 11/26/2016 Appointment: Almaz Enriquez WPtel: [address] [place] [address] WEIGHT CHECK 10/25/2016 Patient Education: Patient Medication Summary Completed 10/25/2016 Appointment: Almaz Enriqueztel: [address] [place] [address] BP CHECK 09/21/2016 Patient Education: Patient Medication Summary Completed 09/21/2016 Visit Plan: Is working out routinely Bulmaro l do phenteramine 37.5mg Weight and BP check next 2 months then fwup in 3mos 08/23/2016 Appointment: Almaz Enriquez WPtel: [address] [place] [address] 08/22 confirmed~sl FOLLOW UP 08/23/2016 Patient Education: Patient Medication Summary Completed 08/23/2016 Patient Education: Patient Medication Summary Completed 06/22/2016 Care Plan: X-RAY EXAM OF KNEE 1 OR 2 RUPALI [place] : 54651-7 Pending 06/22/2016 Visit Plan: RICE and rx as above Reduce strain on knee OTC pain relievers if needed Knee sleeve Call in 7-10 days if not improving for xray orders 06/14/2016 Appointment: Aracelis Mercado [address] ACUTE ILLNESS 06/14/2016 Patient Education: Patient Medication Summary Completed 06/14/2016 Referral: Jatinder Ambrose WPtel: [address] Referral Appointment Requested 05/09/2016 Visit Plan: Attempted to use ET popper w ith minimal relief Fluticasone nasal spray - 2 sprays each nostril one time daily 04/19/2016 Appointment: Radha Botello WPtel: [address] [place] [address] 04/18 confirmed~sl ACUTE ILLNESS 04/19/2016 Patient Education: Patient Medication Summary Completed 04/19/2016 Visit Plan: Amoxicillin dosing is too lo w - increase as above Infection does appear fairly mild so suspect most of her pain is from ETD/fluid issues MDP as well as antihistamines - avoid decongestant due to history of palpitations Diflucan if needed since she reports yeast infections with antibiotic use Follow up PRN 04/10/2016 Appointment: Aracelis Mercado [address] ACUTE ILLNESS 04/10/2016 Patient Education: Patient Medication Summary Completed 04/10/2016 Visit Plan: Strep Screen - negative Geronimo mmending warm saline gargles and notify if symptoms worsen 11/22/2015 Appointment: Radha Botello WPtel: [address] [place] [address] ACUTE ILLNESS 11/22/2015 Patient Education: Patient Medication Summary Completed 11/22/2015 Appointment: Almaz Enriquez WPtel: [address] [place], [place] [phone] [place] LAB 10/03/2015 Patient Education: Patient Medication Summary Completed 10/03/2015 Appointment: Almaz Enriquez WPtel: [address] [place], [place] [phone] [place] UA 08/01/2015 Patient Education: Patient Medication Summary Completed 08/01/2015 Visit Plan: Anusol HC supp for 2weeks Al ign daily for 2weeks If resolves then will observe as came on after recent GI bug but if persists or comes back will need colonoscopy 06/28/2015 Appointment: Almaz Enriquez WPtel: [address] [place] [address] ACUTE ILLNESS 06/28/2015 Patient Education: Patient Medication Summary Completed 06/28/2015 Appointment: Almaz Enriquez WPtel: [address] [place] [address] 05/27 vm cn FOLLOW UP 05/30/2015 Appointment: Almaz Enriquez WPtel: [address] [place] [address] ACUTE ILLNESS 05/16/2015 Visit Plan: Venous dopple of right leg o rdered (tomorrow 10am) Recommended daily EC ASA until results 05/02/2015 Appointment: Za Barajas WPtel: [address] [place] [address] ACUTE ILLNESS 05/02/2015 Patient Education: Patient Medication Summary Completed 05/02/2015 Visit Plan: Zain damoner pack Fwup i n 2mos 03/29/2015 Appointment: Almaz Enriquez WPtel: [address] [place] [address] ER Follow UP 03/29/2015 Patient Education: Patient Medication Summary Completed 03/29/2015 Visit Plan: Start Loratadine 10mg po BID Add flonase q HS 02/15/2015 Appointment: Almaz Enriquez WPtel: [address] [place] [address] ACUTE ILLNESS 02/15/2015 Patient Education: Patient Medication Summary Completed 02/15/2015 Visit Plan: Continue protonix and carafa te See GI for update EGD vs pH probe/etc. Discussed musculoskeletal etiology as well as patient does have some chest wall pain and thoracic pain 12/30/2014 Appointment: Almaz Enriquez WPtel: [address] [place], [place] [id number] ER Follow UP 12/30/2014 Patient Education: Patient Medication Summary Completed 12/30/2014 Ref[facility]: [phone] [id number] Reddy office verifies ins they s chedule with patient directly 10/20/14 Per Patient - she cannot go to this consult because due to her work comp case she must see their preferred dr. Completed 10/12/2014 Appointment: Almaz Enriquez WPtel: [address] [place], [place] [phone] ER Follow UP 09/30/2014 Patient Education: Patient Medication Summary Completed 09/30/2014 Visit Plan: List reglan as an allergy--t remor of thumb has improved since stopping Add carafate to protonix for next 2-4weeks If resolves will observe, if not will need updated EGD 07/19/2014 Appointment: Almaz Enriquez WPtel: [address] [place], [place] [phone] 07/16 also left message that payment is due E R Follow UP 07/19/2014 Patient Education: Patient Medication Summary Completed 07/19/2014 Visit Plan: Stretches, moist heat, topic al biofreeze Amrix 15mg q PM Celebrex 200mg po BID 06/01/2014 Appointment: Almaz Enriquez WPtel: [address] [place], [place] [phone] Patient will bring in/call in $50.00 payment on 06/08-LB ACUTE ILLNESS 06/01/2014 Patient Education: Patient Medication Summary Completed 06/01/2014 Appointment: Radha Botello WPtel: [address] [place], [place] [phone] [place] was in ER on 12/19/13 ACUTE ILLNESS 12/25/2013 Patient Education: Patient Medication Summary Completed 12/25/2013 Appointment: Radha Botello WPtel: [address] [place] [address] ACUTE ILLNESS 12/17/2013 Patient Education: Patient Medication Summary Completed 12/17/2013 Visit Plan: Supportive care. Rest, Fluid s, Tylenol/Motrin prn fever or bodyaches. Notify if worsening symptoms. Zitthromax 500mg daily for 1wk Tussionex 09/15/2013 Appointment: Almaz Enriquez WPtel: [address] [place] [address] ACUTE ILLNESS 09/15/2013 Patient Education: Patient Medication Summary Completed 09/15/2013 Appointment: Za Barajas WPtel: [address] [place] [address] ACUTE ILLNESS 08/14/2013 Patient Education: Patient Medication Summary Completed 08/14/2013 Visit Plan: Await holter results Avoid d econgestants, caffeine Discussed likely secondary to recent illness, steroids, decongestants If persists will get ECHO 08/03/2013 Appointment: Almaz Enriquez WPtel: [address] [place] [address] ER Follow UP 08/03/2013 Patient Education: Patient Medication Summary Completed 08/03/2013 Appointment: Radha Botello WPtel: [address] [place] [address] ACUTE ILLNESS 07/21/2013 Patient Education: Patient Medication Summary Completed 07/21/2013 Appointment: Za Barajas WPtel: [address] [place] [address] ACUTE ILLNESS 06/12/2013 Patient Education: Patient Medication Summary Completed 06/12/2013 Appointment: Almaz Enriquez WPtel: [address] [place] [address] [place] FOLLOW UP 12/25/2012 Patient Education: Patient Medication Summary Completed 12/25/2012 Visit Plan: Azithromycin and codeine/lonny af cough syrup. 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 Discussed notifying if symptoms worsen or persist. Fluids and comfort care. 10/30/2012 Appointment: Lucy Willson WPtel: [address] [place] [address] ACUTE ILLNESS 10/30/2012 Patient Education: Patient Medication Summary Completed 10/30/2012 Visit Plan: Continue metformin and all o ther meds Pt going for surgery for hysterectomy 08/28/2012 Appointment: Almaz Enriquez WPtel: [address] [place] [address] FOLLOW UP 08/28/2012 Patient Education: Patient Medication Summary Completed 08/28/2012 Appointment: Almaz Enriquez WPtel: [address] [place] [address] LAB 08/27/2012 Patient Education: Patient Medication Summary Completed 08/27/2012 Visit Plan: Continue carafate and proton ix Proceed with EGD 05/27/2012 Appointment: Almaz Enriquez WPtel: [address] [place] [address] Follow Up 05/27/2012 Patient Education: Patient Medication Summary Completed 05/27/2012 Visit Plan: Continue metformin and accuc hecks Restart Dexilant Check insulin level with CMP in 4mos 04/30/2012 Appointment: Almaz Enriquez WPtel: [address] [place], [place] [phone] FOLLOW UP 04/30/2012 Patient Education: Patient Medication Summary Completed 04/30/2012 Appointment: Almaz Enriquez WPtel: [address] [place], [place] [phone] LAB 04/29/2012 Patient Education: Patient Medication Summary Completed 04/29/2012 Visit Plan: Pt. reports both of her mirna gillis have experienced pink eye recently and were successfully treated with Tobramycin. Pt. is given written RX for Polymyxin B opthalmic drops. Recommend follow up with Dr. Beltre. Discussed precautions to prevent spread. 02/18/2012 Appointment: Lucy Willson WPtel: [address] [place] [address] ACUTE ILLNESS 02/18/2012 Patient Education: Patient Medication Summary Completed 02/18/2012 Visit Plan: Long discussion about diet a nd exercise and eating 6 manny meals a day with protein Add daily metformin 250mg Restart MV with iron Glucometer to use prn 01/08/2012 Appointment: Almaz Enriquez WPtel: [address] [place] [address] FOLLOW UP 01/08/2012 Patient Education: Patient Medication Summary Completed 01/08/2012 Appointment: Almaz Enriquez WPtel: [address] [place] [address] LAB 12/25/2011 Patient Education: Patient Medication Summary Completed 12/25/2011 Visit Plan: amoxicillin. Discussed comfo rt care and cold/icy fluids. Tylenol/motrin for pain. Pt. will notify if fever or worsening symptoms. Discussed completion of antibiotic regimen 10/19/2011 Appointment: Lucy Willson WPtel: [address] [place] [address] ACUTE ILLNESS 10/19/2011 Patient Education: Patient Medication Summary Completed 10/19/2011 Appointment: Almaz Enriquez WPtel: [address] [place] [address] Follow Up 09/17/2011 Patient Education: Patient Medication Summary Completed 09/17/2011 Visit Plan: New toothebrush in 5 daysSal ine nasal flushes prn. Tylenol/Motrin prn headache. Notify if persists/symptoms worsening. 07/05/2011 Appointment: Almaz Enriquez WPtel: [address] [place] [address] ACUTE ILLNESS 07/05/2011 Patient Education: Patient Medication Summary Completed 07/05/2011 Appointment: Almaz Enriquez WPtel: [address] [place] [address] ACUTE ILLNESS 05/31/2011 Patient Education: Patient Medication Summary Completed 05/31/2011 Appointment: Almaz Enriquez WPtel: [address] [place] [address] ACUTE ILLNESS 04/11/2011 Patient Education: Patient Medication Summary Completed 04/11/2011 Visit Plan: pt. will take Cefuroxime axe til. Will notify if symptoms worsen. 03/13/2011 Appointment: Lucy Willson WPtel: [address] [place] [address] ACUTE ILLNESS 03/13/2011 Patient Education: Patient Medication Summary Completed 03/13/2011 Visit Plan: Continue brace for 2-4 more weeks May exercise to point of discomfort then stop 11/30/2010 Appointment: Almaz Enriquez WPtel: [address] [place] [address] FOLLOW UP 11/30/2010 Patient Education: Patient Medication Summary Completed 11/30/2010 Visit Plan: Continue aircast and add Vim ovo po BID 11/02/2010 Appointment: Almaz Enriquez WPtel: [address] [place] [address] ER Follow UP 11/02/2010 Patient Education: Patient Medication Summary Completed 11/02/2010 Appointment: Almaz Enriquez WPtel: [address] [place] [address] 08/01/2010 Patient Education: Patient Medication Summary Completed 08/01/2010 Appointment: Lucy Willson WPtel: [address] [place], [place] [phone] ACUTE ILLNESS 07/25/2010 Patient Education: Patient Medication Summary Completed 07/25/2010 Visit Plan: Supportive care. Rest, Fluid s, Tylenol/Motrin prn fever or bodyaches. Notify if worsening symptoms. 01/02/2010 Appointment: Almaz Enriquez WPtel: [address] [place] [address] ACUTE ILLNESS 01/02/2010 Patient Education: Patient Medication Summary Completed 01/02/2010 Referral: Cyrus Minl: [address] [facility] [place] Referral Appointment Requested Referral: Cyrus Min WPtel: [address] [facility] [place] Referral Initiated Referral: Terrence Mehta WPtel: [address] [facility] [id number] Mehta will review and call patien to schedule Completed Referral: Shanice Steveartemio WPtel: [address] [facility] [place] Referral Initiated Instructions Comment . Supportive care. Rest, Fluids, Tyleno l/Motrin prn fever or bodyaches. Notify if worsening symptoms. . Is working out routinely Will do phenteramine 37.5mg Weight and BP check next 2 months then fwup in 3mos . RICE and rx as above Reduce strain on knee OTC pain relievers if needed Knee sleeve Call in 7-10 days if not improving for xray orders . Attempted to use ET popper with minima l relief Fluticasone nasal spray - 2 sprays each nostril one time daily . Amoxicillin dosing is too low - increa se as above Infection does appear fairly mild so suspect most of her pain is from ETD/fluid issues MDP as well as antihistamines - avoid decongestant due to history of palpitations Diflucan if needed since she reports yeast infections with antibiotic use Follow up PRN . Strep Screen - negative Recommending warm saline gargles and notify if symptoms worsen . Anusol HC supp for 2weeks Align daily for 2weeks If resolves then will observe as came on after recent GI bug but if persists or comes back will need colonoscopy . Venous dopple of right leg ordered (to orozco 10am) Recommended daily EC ASA until results . Contrave starter pack Fwup in 2mos . Start Loratadine 10mg po BID Add flonase q HS . Continue protonix and carafate See GI for update EGD vs pH probe/etc. Discussed musculoskeletal etiology as well as patient does have some chest wall pain and thoracic pain . List reglan as an allergy--tremor of t humb has improved since stopping Add carafate to protonix for next 2-4weeks If resolves will observe, if not will need updated EGD . Stretches, moist heat, topical biofree ze Amrix 15mg q PM Celebrex 200mg po BID . Supportive care. Rest, Fluids, Tylen ol/Motrin prn fever or bodyaches. Notify if worsening symptoms. Zitthromax 500mg daily for 1wk Tussionex . Await holter results Avoid decongestants, caffeine Discussed likely secondary to recent illness, steroids, decongestants If persists will get ECHO . Azithromycin and codeine/guiaf cough s yrup. 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 Discussed notifying if symptoms worsen or persist. Fluids and comfort care. . Continue metformin and all other meds Pt going for surgery for hysterectomy . Continue carafate and protonix Proceed with EGD . Continue metformin and accuchecks Restart Dexilant Check insulin level with CMP in 4mos . Pt. reports both of her children have experienced pink eye recently and were successfully treated with Tobramycin. Pt. is given written RX for Polymyxin B opthalmic drops. Recommend follow up with Dr. Beltre. Discussed precautions to prevent spread. . Long discussion about diet and exercis e and eating 6 manny meals a day with protein Add daily metformin 250mg Restart MV with iron Glucometer to use prn . amoxicillin. Discussed comfort care an d cold/icy fluids. Tylenol/motrin for pain. Pt. will notify if fever or worsening symptoms. Discussed completion of antibiotic regimen . New toothebrush in 5 daysSaline nasal flushes prn. Tylenol/Motrin prn headache. Notify if persists/symptoms worsening. . pt. will take Cefuroxime axetil. Will notify if symptoms worsen. . Continue brace for 2-4 more weeks May exercise to point of discomfort then stop . Continue aircast and add Vimovo po BID . Supportive care. Rest, Fluids, Tyleno l/Motrin prn fever or bodyaches. Notify if worsening symptoms. Medical Equipment No Medical Equipment data Health Concerns Section Health Concerns data not found Goals Section Goals data not found Interventions Section Interventions data not found Health Status Evaluations/Outcomes Section Health Status Evaluations/Outcomes data not found Advance Directives No Advance Directive data
--- OUTSIDE RECORDS SUMMARY | 2020-04-20 21:00 | XMS REPORT | CCD ---
Author Author Fay Enriquez D.O., DO [facility] Address [address] [place] [address] Phone Care Team Providers Care Hired Hand Name Role Phone Almaz Enriquez D.O., PP Unavailable CCM Unavailable Summary Purpose Interface Exchange Insurance Providers Payer name Policy type / Coverage type Covered republican ID Effective Begin Date Effective End Date Blue Cross Blue Shield Blue Cross/Blue Shield [id number] Unknown Family history Mother Diagnosis Age At Onset Diabetes mellitus Type 1 Unknown Social History Social History Element Codes Description Effective Dates Marital status Unknown 09/17/[address]: 255758162 Has never smoked or chewed tobacco 04/25/2011 [...] Instructions Protonix 40 mg tablet,delayed release RxNorm: 413907 TA KE 1 TABLET BY MOUTH EVERY DAY 12/17/2019 03/15/2020 Active Protonix 40 mg tablet,delayed release RxNorm: 910847 1 TABLET(S ) PO QD 09/15/2019 12/13/2019 Inactive Protonix 40 mg tablet,delayed release RxNorm: 532698 1 Tablet(s ) PO QD 06/05/2019 09/02/2019 Inactive Bactrim DS 800 mg-160 mg tablet RxNorm: 001957 1 Tablet(s) PO BID 0 05/25/2019 05/31/2019 Inactive kpmbnahg-ifsxqlthd-fvwcaxzrr 3.5 mg/mL-10,000 unit/mL- 1 % ear solution RxNorm: 889831 4 Drop(s) otic (ear) TID 12/17/2018 12/16/2018 Inactive fcpynndj-lyvzgyyqu-elexrkhyc 3.5 mg/mL-10,000 unit/mL- 1 % ear solution RxNorm: 856492 4 Drop(s) otic (ear) TID 12/17/2018 12/23/2018 Inactive rig ht ear ofloxacin 0.3 % ear drops RxNorm: 103480 5 Drop(s) otic (ear) BID 0 12/16/2018 12/16/2018 Inactive right ear amoxicillin 875 mg tablet RxNorm: 357455 1 Tablet(s) PO BID 019 12/25/2018 Inactive Diflucan 200 mg tablet RxNorm: 356162 1 Tablet(s) PO Q72H 12/16/2018 01/04/2019 Inactive Bactrim DS 800 mg-160 mg tablet RxNorm: 476386 1 Tablet(s) PO BID 0 12/02/2018 12/01/2018 Inactive Bactrim DS 800 mg-160 mg tablet RxNorm: 267170 1 Tablet(s) PO BID 0 12/02/2018 12/08/2018 Inactive Protonix 40 mg tablet,delayed release RxNorm: 702685 1 Tablet(s ) PO QD 09/23/2018 12/21/2018 Inactive Protonix 40 mg tablet,delayed release RxNorm: 181624 1 Tablet(s ) PO BID 09/18/2018 09/22/2018 Inactive Voltaren 1 % topical gel RxNorm: 629819 2 Gram(s) TOP QID to ri ght knee 08/28/2018 05/05/2019 Inactive Diflucan 150 mg tablet RxNorm: 173162 1 Tablet(s) PO Q7 2H Take one tablet today and repeat in 3 days if no improvement. 10/23/2017 08/17/2018 Inactive Diflucan 150 mg tablet RxNorm: 274977 1 Tablet(s) PO Q7 2H Take one tablet today and repeat in 3 days if no improvement. 10/04/2017 10/22/2017 Inactive ofloxacin 0.3 % ear drops RxNorm: 910195 4 Drop(s) OTIC TID for 1 week 06/24/2017 08/17/2018 Inactive Medrol (Scar) 4 mg tablets in a dose pack RxNorm: 605140 Take as directed 01/18/2017 04/10/2017 Inactive ketoconazole 2 % topical cream RxNorm: 262453 Applicati on TOP BID to lesion x 2 weeks 11/26/2016 01/17/2017 Inactive Protonix 40 mg tablet,delayed release RxNorm: 550988 1 TABLET(S ) PO QD 10/13/2016 05/05/2019 Inactive phentermine 37.5 mg tablet RxNorm: 736351 1 Tablet(s) PO QAM 201511/25/2016 Inactive Medrol (Scar) 4 mg tablets in a dose pack RxNorm: 027886 Take as directed 06/14/2016 08/22/2016 Inactive Diflucan 150 mg tablet RxNorm: 783973 1 Tablet(s) PO QD . May repeat in 2-3 days if needed. 04/10/2016 04/11/2016 Inactive amoxicillin 875 mg tablet RxNorm: 473160 1 Tablet(s) PO BID 016 04/18/2016 Inactive Medrol (Scar) 4 mg tablets in a dose pack RxNorm: 011007 Take as directed 04/10/2016 04/18/2016 Inactive Anusol-HC 25 mg suppository RxNorm: 1483043 1 Suppository RTL BID 0 06/28/2015 07/11/2015 Inactive Protonix 40 mg tablet,delayed release RxNorm: 904509 1 Tablet(s ) PO QD 04/27/2015 10/23/2015 Inactive Contrave 8 mg-90 mg tablet,extended release RxNorm: 8499272 1 Tablet(s) PO QAM for 1 week then 1 po BID for 1week then 1 in AM and 2 in PM for 1week then 2 po BID 03/29/2015 06/27/2015 Inactive [SAVINGS FOR UNI NSURED PATIENTS -- BIN:[id number], PCN: [id number], Group: [id number], ID# [id number], Process claim through [employer], for questions: . THIS IS NOT INSURANCE.] Flonase Allergy Relief 50 mcg/actuation nasal spray,suspensi on RxNorm: 2 Bruner NASAL QHS 02/15/2015 03/28/2015 Inactive Carafate 1 gram tablet RxNorm: 335366 1 Tablet(s) PO AC & HS 201406/13/2016 Inactive Diflucan 100 mg tablet RxNorm: 869215 1 Tablet(s) PO QD 09/30/2014 Inactive metformin ER 500 mg tablet,extended release 24hr RxNorm: 860 975 1/2 Tablet(s) PO QD 09/15/2014 12/29/2014 Inactive metformin ER 500 mg tablet,extended release 24hr RxNorm: 860 975 1/2 Tablet(s) PO QD 09/15/2014 09/14/2014 Inactive Carafate 1 gram tablet RxNorm: 906925 1 Tablet(s) PO AC & HS 201309/16/2014 Inactive Diflucan 100 mg tablet RxNorm: 936069 1 Tablet(s) PO QD 12/28/2013 Inactive amoxicillin 875 mg tablet RxNorm: 259697 1 Tablet(s) PO BID 014 01/03/2014 Inactive Protonix 40 mg tablet,delayed release RxNorm: 802116 1 Tablet(s ) PO QD 12/03/2013 07/25/2014 Inactive Zithromax 250 mg tablet RxNorm: 458257 2 Tablet(s) PO QD 09/15/2013 1 11/22/2012 Inactive Flagyl 500 mg tablet RxNorm: 949089 1 Tablet(s) PO Q12H 06/12/2013 Inactive Diflucan 100 mg tablet RxNorm: 375964 1 Tablet(s) PO QD 12/08/2012 Inactive Diflucan 100 mg tablet RxNorm: 036847 1 Tablet(s) PO QD 12/08/2012 Inactive azithromycin 250 mg tablet RxNorm: 130408 2 Tablet(s) PO QD ant ibiotic 10/30/2012 11/06/2012 Inactive Carafate 1 gram Tab RxNorm: 993172 1 Tablet(s) PO AC 05/27/201206/11 Inactive MetroCream 0.75 % Topical RxNorm: 108601 Application TOP BID 201106/11/2013 Inactive to face Protonix 40 mg Tab RxNorm: 300721 1 Tablet(s) PO QD 05/20/20122012 Inactive Dexilant 60 mg Capsule RxNorm: 710486 1 Capsule(s) PO QD 04/30/2012 0 05/26/2012 Inactive metformin ER 500 mg 24 hr Tab RxNorm: 098492 1 Tablet(s) PO QAM 10/29/2012 Inactive tobramycin 0.3 % Eye Drops RxNorm: 361994 1-2 Drop(s) O PH Q4H one to two drops in effected eye(s) every four hours for a maximum of 7 days. If no improvement in 1-2 days need eval 02/15/2012 02/19/2012 Inactive amoxicillin 875 mg tablet RxNorm: 112243 1 Tablet(s) PO BID 012 10/28/2011 Inactive Protonix 40 mg Tab RxNorm: 755720 1 Tablet(s) PO QD 04/11/20112010 Inactive cefuroxime axetil 500 mg Tab RxNorm: 286187 1 Tablet(s) PO BID 02/1303/22/2011 Inactive Ibuprofen 600 mg Tab RxNorm: 080195 1 Tablet(s) PO TID prn pain 06/24/2010 Inactive Levapak 750 mg Tablet RxNorm: 1 Tablet(s) PO QD 01/02/2010 0 Inactive Cortisporin otic (ear) RxNorm: 11928 otic (ear) No Start Date 019 Inactive Sprix 15.75 mg/spray Nasal Bruner RxNorm: 4919642 1 Bruner NASAL QID each nostril--for pain for 5 days No Start Date 01/07/2012 Inactive Children's Multivitamins with Iron chewable tablet RxNorm: 1 Tablet(s) PO QD No Start Date 08/17/2019 Inactive Promethazine-Codeine 6.25 mg-10 mg/5 mL Syrup RxNorm: 102209 1-2 Teaspoon(s) PO Q4H prn cough No Start Date 04/10/2011 Inactive metformin ER 500 mg 24 hr Tab RxNorm: 785931 1/2 Tablet(s) PO QAM N o Start Date 04/29/2012 Inactive metformin ER 500 mg 24 hr tablet,extended release RxNorm: 86 0975 1/2 Tablet(s) PO QD No Start Date 12/27/2012 Inactive Protonix 40 mg tablet,delayed release RxNorm: 846486 1 Tablet(s ) PO QD No Start Date 12/02/2013 Inactive Carafate 1 gram Tab RxNorm: 556947 1 Tablet(s) PO AC No Start Date Inactive Flonase 50 mcg/Actuation Nasal Bruner RxNorm: 2848891 1 Bruner JEROD AL BID No Start Date 04/10/2011 Inactive Protonix 40 mg tablet,delayed release RxNorm: 792636 1 Tablet(s ) PO BID No Start Date 12/29/2014 Inactive Protonix 40 mg Tab RxNorm: 159500 1 Tablet(s) PO QD No Start Date 04/2013 Inactive Dexilant 60 mg capsule, delayed release RxNorm: 958960 1 Capsul e(s) PO QD No Start Date 06/23/2017 Inactive Diflucan 150 mg tablet RxNorm: 030904 1 Tablet(s) PO Q7 2H Take one tablet today and repeat in 3 days if no improvement. No Start Date 10/03/2017 Inactive Protonix 40 mg tablet,delayed release RxNorm: 775512 1 Tablet(s ) PO QD No Start Date 04/26/2015 Inactive MetroCream 0.75 % Topical RxNorm: 513604 Application TOP BID No Sta rt Date 05/26/2012 Inactive to face Zithromax Z-Scar 250 mg Tab RxNorm: 845417 1 Tablet(s) PO QD No Star t Date 09/16/2011 Inactive as directed Protonix 40 mg tablet,delayed release RxNorm: 031301 1 Tablet(s ) PO BID No Start Date 09/17/2018 Inactive Medication Administered No Medication Administered data Immunizations No Immunization data Results Observation Observation Code Item Item Code Result Date S ervice Location THYROID STIMULATING HORMONE 29434 TSH 1.360 uIU/ML 10/03/2015 Unknown COMPREHENSIVE METABOLIC 16894 AST 12 U/L 2014 Unknown COMPREHENSIVE METABOLIC 68585 ALT 9 IU/L 2014 Unknown COMPREHENSIVE METABOLIC 44466 BUN 10 MG/DL 2014 Unknown COMPREHENSIVE METABOLIC 19809 ALBUMIN 4.3 GM/DL 2014 Unknown COMPREHENSIVE METABOLIC 05967 CHLORIDE 104 MMOL/L 10/03 Unknown COMPREHENSIVE METABOLIC 26271 BILI TOT 0.3 MG/DL 2014 Unknown COMPREHENSIVE METABOLIC 30145 ALK PHOS 34 U/L 2014 Unknown COMPREHENSIVE METABOLIC 40681 SODIUM 137 MMOL/L 10/03 Unknown COMPREHENSIVE METABOLIC 06591 CREATININE 0.77 MG/DL 09/14 Unknown COMPREHENSIVE METABOLIC 29531 CALCIUM 9.6 MG/DL 2014 Unknown COMPREHENSIVE METABOLIC 38167 POTASSIUM 4.1 MMOL/L 10/03 Unknown COMPREHENSIVE METABOLIC 55238 PROT TOT 7.1 GM/DL 2014 Unknown COMPREHENSIVE METABOLIC 08031 Glucose 92 MG/DL 2014 Unknown COMPREHENSIVE METABOLIC 23588 BICARB 27 MMOL/L 2014 Unknown COMPREHENSIVE METABOLIC 31764 ANION GAP 6 MEQ/L 2014 Unknown LIPID GROUP 94268 HDL TEST 52 MG/DL 10/03/2015 Unknown LIPID GROUP 83091 TRIG 78 MG/DL 10/03/2015 Unknown LIPID GROUP 68489 TEST LDL 114 MG/DL 10/03/2015 Unknown LIPID GROUP 65892 CHOL 182 MG/DL 10/03/2015 Unknown LIPID GROUP 62975 RCHOL/HDL 3.50 RATIO 10/03/2015 Unknow n LIPID GROUP 95522 NON-HDL CH 130 MG/DL 10/03/2015 Unknow n GFR CALC 2299846 GFR AA >60 ML/MIN 10/03/2015 Unknown GFR CALC 8635082 GFR NON-AA >60 ML/MIN 10/03/2015 Unknown COMPLETE BLOOD COUNT 8073651 WBC 4.9 10e9/L 10/03/20 15 Unknown COMPLETE BLOOD COUNT 1178728 RBC 4.49 10e12/L 2014 Unknown COMPLETE BLOOD COUNT 6332834 HGB 11.3 g/dL 5 Unknown COMPLETE BLOOD COUNT 1515843 HCT DET 34.7 % 5 Unknown COMPLETE BLOOD COUNT 3516727 MCV 77.3 fL 5 Unknown COMPLETE BLOOD COUNT 7530389 MCH 25.2 pg 5 Unknown COMPLETE BLOOD COUNT 8479824 MCHC 32.6 g/dL 5 Unknown COMPLETE BLOOD COUNT 4698698 PLT 314 10e9/L 10/03/20 15 Unknown COMPLETE BLOOD COUNT 3548543 MPV 10.4 fL 5 Unknown COMPLETE BLOOD COUNT 9354195 ALEXX % 41.0 % 5 Unknown COMPLETE BLOOD COUNT 0300329 LY % 47.7 % 5 Unknown COMPLETE BLOOD COUNT 0266958 MON % 8.4 % 5 Unknown COMPLETE BLOOD COUNT 9864840 EOS % 2.7 % 5 Unknown COMPLETE BLOOD COUNT 6797817 BASO % 0.2 % 5 Unknown COMPLETE BLOOD COUNT 9581188 RDW 14.5 % 5 Unknown COMPLETE BLOOD COUNT 9988415 ABS ALEXX 2.01 10e9/L 015 Unknown COMPLETE BLOOD COUNT 5437467 ABS LYMPH 2.34 10e9/L 015 Unknown COMPLETE BLOOD COUNT 7280865 ABS MONO 0.41 10e9/L 015 Unknown COMPLETE BLOOD COUNT 2647513 ABS EOS 0.13 10e9/L 015 Unknown COMPLETE BLOOD COUNT 7834174 ABS BASO 0.01 10e9/L 015 Unknown COMPLETE BLOOD COUNT 8071491 RDW-SD 39.6 fL 5 Unknown FREE T4 42383 FREE T4 1.08 NG/DL 10/03/2015 Unknown GFR CALC 4065595 GFR AA >60 ML/MIN 12/25/2012 Unknown GFR CALC 6847468 GFR NON-AA >60 ML/MIN 12/25/2012 Unknown INSULIN SERUM 87597 INSULIN 5.0 mU/L 12/25/2012 Unkno wn BASIC METABOLIC PANEL 17702 Glucose 82 MG/DL 12/26/19 13 Unknown BASIC METABOLIC PANEL 51624 BUN 9 MG/DL 12/26/19 13 Unknown BASIC METABOLIC PANEL 19553 CREATININE 0.83 MG/DL 2012 Unknown BASIC METABOLIC PANEL 58305 SODIUM 139 MMOL/L 013 Unknown BASIC METABOLIC PANEL 87532 BICARB 26 MMOL/L 12/26/19 13 Unknown BASIC METABOLIC PANEL 56285 POTASSIUM 4.3 MMOL/L 013 Unknown BASIC METABOLIC PANEL 46179 ANION GAP 8 MEQ/L 12/26/19 13 Unknown BASIC METABOLIC PANEL 52231 CHLORIDE 105 MMOL/L 013 Unknown BASIC METABOLIC PANEL 65735 CALCIUM 9.6 MG/DL 12/26/19 13 Unknown GFR CALC 0255830 GFR AA >60 ML/MIN 08/27/2012 Unknown GFR CALC 3703473 GFR NON-AA >60 ML/MIN 08/27/2012 Unknown COMPREHENSIVE METABOLIC 21113 AST 16 U/L 2011 Unknown COMPREHENSIVE METABOLIC 31225 ALT 11 IU/L 2011 Unknown COMPREHENSIVE METABOLIC 53097 BUN 9 MG/DL 2011 Unknown COMPREHENSIVE METABOLIC 00685 ALBUMIN 4.1 GM/DL 2011 Unknown COMPREHENSIVE METABOLIC 99946 CHLORIDE 106 MMOL/L 08/27 Unknown COMPREHENSIVE METABOLIC 28566 BILI TOT 0.2 MG/DL 2011 Unknown COMPREHENSIVE METABOLIC 18502 ALK PHOS 35 U/L 2011 Unknown COMPREHENSIVE METABOLIC 24970 SODIUM 137 MMOL/L 08/27 Unknown COMPREHENSIVE METABOLIC 98634 CREATININE 0.80 MG/DL 08/14 Unknown COMPREHENSIVE METABOLIC 92460 CALCIUM 9.2 MG/DL 2011 Unknown COMPREHENSIVE METABOLIC 45549 POTASSIUM 4.5 MMOL/L 08/27 Unknown COMPREHENSIVE METABOLIC 67316 PROT TOT 6.9 GM/DL 2011 Unknown COMPREHENSIVE METABOLIC 12918 Glucose 92 MG/DL 2011 Unknown COMPREHENSIVE METABOLIC 31824 BICARB 25 MMOL/L 2011 Unknown COMPREHENSIVE METABOLIC 05628 ANION GAP 6 MEQ/L 2011 Unknown INSULIN SERUM 15673 INSULIN 10.6 mU/L 08/27/2012 Unkno wn GFR CALC 2145762 GFR AA >60 ML/MIN 04/29/2012 Unknown GFR CALC 3485421 GFR NON-AA >60 ML/MIN 04/29/2012 Unknown GLYCOSYLATED HEMOGLOBIN TEST 46036 A1C HPLC 38179-8 5.6 % 0 04/29/2012 Unknown COMPREHENSIVE METABOLIC 62296 AST 14 U/L 2011 Unknown COMPREHENSIVE METABOLIC 27300 ALT 9 IU/L 2011 Unknown COMPREHENSIVE METABOLIC 55863 BUN 11 MG/DL 2011 Unknown COMPREHENSIVE METABOLIC 20114 ALBUMIN 4.4 GM/DL 2011 Unknown COMPREHENSIVE METABOLIC 41651 CHLORIDE 105 MMOL/L 04/29 Unknown COMPREHENSIVE METABOLIC 99795 BILI TOT 0.2 MG/DL 2011 Unknown COMPREHENSIVE METABOLIC 41133 ALK PHOS 36 U/L 2011 Unknown COMPREHENSIVE METABOLIC 19305 SODIUM 139 MMOL/L 04/29 Unknown COMPREHENSIVE METABOLIC 45036 CREATININE 0.80 MG/DL 04/13 Unknown COMPREHENSIVE METABOLIC 10127 CALCIUM 9.5 MG/DL 2011 Unknown COMPREHENSIVE METABOLIC 84479 POTASSIUM 4.4 MMOL/L 04/29 Unknown COMPREHENSIVE METABOLIC 28070 PROT TOT 6.6 GM/DL 2011 Unknown COMPREHENSIVE METABOLIC 82562 Glucose 81 MG/DL 2011 Unknown COMPREHENSIVE METABOLIC 01425 BICARB 26 MMOL/L 2011 Unknown COMPREHENSIVE METABOLIC 43830 ANION GAP 8 MEQ/L 2011 Unknown INSULIN SERUM 16189 INSULIN 28.2 mU/L 12/26/2011 Unkno wn COMPREHENSIVE METABOLIC 66552 AST 19 U/L 2011 Unknown COMPREHENSIVE METABOLIC 06556 ALT 15 IU/L 2011 Unknown COMPREHENSIVE METABOLIC 71428 BUN 8 MG/DL 2011 Unknown COMPREHENSIVE METABOLIC 40784 ALBUMIN 4.6 GM/DL 2011 Unknown COMPREHENSIVE METABOLIC 72806 CHLORIDE 105 MMOL/L 12/24 Unknown COMPREHENSIVE METABOLIC 03084 BILI TOT 0.4 MG/DL 2011 Unknown COMPREHENSIVE METABOLIC 51394 ALK PHOS 38 U/L 2011 Unknown COMPREHENSIVE METABOLIC 63460 SODIUM 141 MMOL/L 12/24 Unknown COMPREHENSIVE METABOLIC 41472 CREATININE 0.74 MG/DL 12/12 Unknown COMPREHENSIVE METABOLIC 92704 CALCIUM 9.4 MG/DL 2011 Unknown COMPREHENSIVE METABOLIC 88266 POTASSIUM 4.1 MMOL/L 12/24 Unknown COMPREHENSIVE METABOLIC 72876 PROT TOT 7.6 GM/DL 2011 Unknown COMPREHENSIVE METABOLIC 57903 Glucose 53 MG/DL 2011 Unknown COMPREHENSIVE METABOLIC 86536 BICARB 25 MMOL/L 2011 Unknown COMPREHENSIVE METABOLIC 83988 ANION GAP 11 MEQ/L 2011 Unknown COMPLETE BLOOD COUNT 96836 WBC 3.7 10e9/L 12/25/19 12 Unknown COMPLETE BLOOD COUNT 57111 RBC 4.53 10e12/L 2011 Unknown COMPLETE BLOOD COUNT 68326 HGB 11.4 g/dL 2 Unknown COMPLETE BLOOD COUNT 61983 HCT DET 35.4 % 2 Unknown COMPLETE BLOOD COUNT 90966 MCV 78.1 fL 2 Unknown COMPLETE BLOOD COUNT 38562 MCH 25.2 pg 2 Unknown COMPLETE BLOOD COUNT 38235 MCHC 32.2 g/dL 2 Unknown COMPLETE BLOOD COUNT 87026 PLT 327 10e9/L 12/25/19 12 Unknown COMPLETE BLOOD COUNT 57218 MPV 10.9 fL 2 Unknown COMPLETE BLOOD COUNT 75381 ALEXX % 30.9 % 2 Unknown COMPLETE BLOOD COUNT 47753 LY % 57.0 % 2 Unknown COMPLETE BLOOD COUNT 83679 MON % 9.1 % 2 Unknown COMPLETE BLOOD COUNT 02724 EOS % 2.7 % 2 Unknown COMPLETE BLOOD COUNT 46409 BASO % 0.3 % 2 Unknown COMPLETE BLOOD COUNT 31074 RDW 14.0 % 2 Unknown COMPLETE BLOOD COUNT 64308 ABS ALEXX 1.14 10e9/L 012 Unknown COMPLETE BLOOD COUNT 64160 ABS LYMPH 2.11 10e9/L 012 Unknown COMPLETE BLOOD COUNT 83621 ABS MONO 0.34 10e9/L 012 Unknown COMPLETE BLOOD COUNT 24269 ABS EOS 0.10 10e9/L 012 Unknown COMPLETE BLOOD COUNT 34173 ABS BASO 0.01 10e9/L 012 Unknown COMPLETE BLOOD COUNT 51025 RDW-SD 39.0 fL 2 Unknown GFR CALC 8612554 GFR AA >60 ML/MIN 12/25/2011 Unknown GFR CALC 9349883 GFR NON-AA >60 ML/MIN 12/25/2011 Unknown AMYLASE 37190 AMYLASE 63 IU/L 05/31/2011 Unknown GFR CALC 4031443 GFR AA >60 ML/MIN 05/31/2011 Unknown GFR CALC 3985621 GFR NON-AA >60 ML/MIN 05/31/2011 Unknown COMPLETE BLOOD COUNT 99784 WBC 5.0 10e9/L 05/31/20 11 Unknown COMPLETE BLOOD COUNT 67939 RBC 4.56 10e12/L 2010 Unknown COMPLETE BLOOD COUNT 80108 HGB 11.6 g/dL 1 Unknown COMPLETE BLOOD COUNT 09303 HCT DET 35.1 % 1 Unknown COMPLETE BLOOD COUNT 05858 MCV 77.0 fL 1 Unknown COMPLETE BLOOD COUNT 09983 MCH 25.4 pg 1 Unknown COMPLETE BLOOD COUNT 36302 MCHC 33.0 g/dL 1 Unknown COMPLETE BLOOD COUNT 47650 PLT 313 10e9/L 05/31/20 11 Unknown COMPLETE BLOOD COUNT 98985 MPV 11.0 fL 1 Unknown COMPLETE BLOOD COUNT 75891 ALEXX % 37.7 % 1 Unknown COMPLETE BLOOD COUNT 82822 LY % 49.1 % 1 Unknown COMPLETE BLOOD COUNT 71368 MON % 10.4 % 1 Unknown COMPLETE BLOOD COUNT 42213 EOS % 2.6 % 1 Unknown COMPLETE BLOOD COUNT 70554 BASO % 0.2 % 1 Unknown COMPLETE BLOOD COUNT 41361 RDW 13.7 % 1 Unknown COMPLETE BLOOD COUNT 17683 ABS ALEXX 1.89 10e9/L 011 Unknown COMPLETE BLOOD COUNT 90859 ABS LYMPH 2.46 10e9/L 011 Unknown COMPLETE BLOOD COUNT 44352 ABS MONO 0.52 10e9/L 011 Unknown COMPLETE BLOOD COUNT 38155 ABS EOS 0.13 10e9/L 011 Unknown COMPLETE BLOOD COUNT 13534 ABS BASO 0.01 10e9/L 011 Unknown COMPLETE BLOOD COUNT 42575 RDW-SD 37.4 fL 1 Unknown COMPREHENSIVE METABOLIC 12097 AST 16 U/L 2010 Unknown COMPREHENSIVE METABOLIC 82846 ALT 10 IU/L 2010 Unknown COMPREHENSIVE METABOLIC 28278 BUN 9 MG/DL 2010 Unknown COMPREHENSIVE METABOLIC 53166 ALBUMIN 4.4 GM/DL 2010 Unknown COMPREHENSIVE METABOLIC 58618 CHLORIDE 102 MMOL/L 05/31 Unknown COMPREHENSIVE METABOLIC 41043 BILI TOT 0.3 MG/DL 2010 Unknown COMPREHENSIVE METABOLIC 45112 ALK PHOS 36 U/L 2010 Unknown COMPREHENSIVE METABOLIC 44692 SODIUM 138 MMOL/L 05/31 Unknown COMPREHENSIVE METABOLIC 19245 CREATININE 0.72 MG/DL 05/14 Unknown COMPREHENSIVE METABOLIC 09748 CALCIUM 9.6 MG/DL 2010 Unknown COMPREHENSIVE METABOLIC 13022 POTASSIUM 3.9 MMOL/L 05/31 Unknown COMPREHENSIVE METABOLIC 13843 PROT TOT 7.2 GM/DL 2010 Unknown COMPREHENSIVE METABOLIC 13206 Glucose 82 MG/DL 2010 Unknown COMPREHENSIVE METABOLIC 43807 BICARB 29 MMOL/L 2010 Unknown COMPREHENSIVE METABOLIC 48963 ANION GAP 7 MEQ/L 2010 Unknown LIPASE 04343 LIPASE 11 IU/L 05/31/2011 Unknown Procedures Procedure Codes Date URINE CULTURE/ COLONY COUNT CPT-4: 62968 05/25/2019 STREP A ASSAY W/OPTIC CPT-4: 72566 12/16/2018 URINE CULTURE/ COLONY COUNT CPT-4: 71385 12/02/2018 URINALYSIS NONAUTO W/O SCOPE CPT-4: 90657 10/21/2017 URINE CULTURE/ COLONY COUNT CPT-4: 63599 10/21/2017 STREP A ASSAY W/OPTIC CPT-4: 81213 11/22/2015 ROUTINE VENIPUNCTURE CPT-4: 91533 10/03/2015 ASSAY OF FREE THYROXINE CPT-4: 80938 10/03/2015 ASSAY THYROID STIM HORMONE CPT-4: 43078 10/03/2015 COMPREHEN METABOLIC PANEL CPT-4: 76059 10/03/2015 COMPLETE CBC W/AUTO DIFF WBC CPT-4: 77624 10/03/2015 LIPID PANEL CPT-4: 41696 10/03/2015 URINALYSIS NONAUTO W/O SCOPE CPT-4: 42972 08/01/2015 URINE CULTURE/ COLONY COUNT CPT-4: 86698 08/01/2015 STREP A ASSAY W/OPTIC CPT-4: 05507 12/25/2013 URINALYSIS NONAUTO W/O SCOPE CPT-4: 55072 12/17/2013 THER/PROPH/DIAG INJ SC/IM CPT-4: 75837 07/21/2013 METHYLPREDNISOLONE 40 MG INJ CPT-4: J1030 07/21/2013 TRIAMCINOLONE ACET INJ NOS CPT-4: J3301 07/21/2013 C WET PA CPT-4: 75025 06/12/2013 ROUTINE VENIPUNCTURE CPT-4: 24357 12/25/2012 METABOLIC PANEL TOTAL CA CPT-4: 61331 12/25/2012 ASSAY OF INSULIN CPT-4: 46229 12/25/2012 ROUTINE VENIPUNCTURE CPT-4: 93891 08/27/2012 COMPREHEN METABOLIC PANEL CPT-4: 87460 08/27/2012 ASSAY OF INSULIN CPT-4: 10550 08/27/2012 ROUTINE VENIPUNCTURE CPT-4: 00574 04/29/2012 COMPREHEN METABOLIC PANEL CPT-4: 41514 04/29/2012 A1C GLYCOSYLATED HEMOGLOBIN TEST CPT-4: 14484 012 COMPLETE CBC W/AUTO DIFF WBC CPT-4: 69859 12/25/2011 COMPREHEN METABOLIC PANEL CPT-4: 53089 12/25/2011 ROUTINE VENIPUNCTURE CPT-4: 11244 12/25/2011 ASSAY OF INSULIN CPT-4: 73299 12/25/2011 THER/PROPH/DIAG INJ SC/IM CPT-4: 35419 09/17/2011 KETOROLAC TROMETHAMINE INJ CPT-4: J1885 09/17/2011 ROUTINE VENIPUNCTURE CPT-4: 83211 05/31/2011 COMPREHEN METABOLIC PANEL CPT-4: 37266 05/31/2011 COMPLETE CBC W/AUTO DIFF WBC CPT-4: 46613 05/31/2011 ASSAY OF LIPASE CPT-4: 01330 05/31/2011 ASSAY OF AMYLASE CPT-4: 18903 05/31/2011 URINALYSIS NONAUTO W/O SCOPE CPT-4: 79211 08/01/2010 URINE CULTURE/ COLONY COUNT CPT-4: 45137 08/01/2010 Vital Signs Date Vital 12/03/2019 Blood [...] 1: 136/86 Code: 8480-6 BMI: 33.5 Code: 47909-6 Heart Rate 1: 92 bpm Height: 5'2" Respiratory Rate: 20 bpm Temperature: 37 .1 (C) / 98.8 (F) Weight: 180 lbs 08/18/2018 Blood Pressure 1: 136/78 Code: 8480-6 Heart Rate 1: 91 bpm Respiratory Rate: 18 bpm SpO2: 99% Temperature: 36.4 (C) / 97.5 (F) We ight: 183 lbs 06/24/2017 Blood Pressure 1: 140/80 Code: 8480-6 BMI: 34.2 Code: 96900-0 Heart Rate 1: 76 bpm Height: 5'2" Respiratory Rate: 20 bpm Temperature: 36 .7 (C) / 98.0 (F) Weight: 184 lbs 04/11/2017 Blood Pressure 1: 132/86 Code: 8480-6 Heart Rate 1: 84 bpm Respiratory Rate: 20 bpm SpO2: 97% Temperature: 36.6 (C) / 97.8 (F) We ight: 181 lbs 01/18/2017 Blood Pressure 1: 122/80 Code: 8480-6 BMI: 31.6 Code: 13007-9 Heart Rate 1: 76 bpm Height: 5'2" Respiratory Rate: 20 bpm SpO2: 96% Tempera ture: 36.7 (C) / 98.1 (F) Weight: 170 lbs 11/26/2016 Blood Pressure 1: 128/80 Code: 8480-6 BMI: 31.0 Code: 25858-6 Heart Rate 1: 84 bpm Height: 5'2" Respiratory Rate: 20 bpm SpO2: 98% Tempera ture: 36.8 (C) / 98.2 (F) Weight: 167 lbs 10/25/2016 Blood Pressure 1: 118/76 Code: 8480-6 BMI: 30.9 Code: 32826-5 Heart Rate 1: 72 bpm Height: 5'2" Weight: 166 lbs 09/21/2016 Blood Pressure 1: 124/70 Code: 8480-6 BMI: 31.0 Code: 87346-2 Heart Rate 1: 80 bpm Height: 5'2" Weight: 167 lbs 08/23/2016 Blood Pressure 1: 138/82 Code: 8480-6 BMI: 31.6 Code: 11376-8 Heart Rate 1: 64 bpm Height: 5'2" [...] 1: 140/78 Code: 8480-6 BMI: 33.5 Code: 68495-8 Heart Rate 1: 82 bpm Height: 5'2" Respiratory Rate: 22 bpm SpO2: 97% Tempera ture: 36.3 (C) / 97.4 (F) Weight: 180 lbs 11/22/2015 Blood Pressure 1: 110/68 Code: 8480-6 BMI: 33.1 Code: 31698-2 Heart Rate 1: 80 bpm Height: 5'2" Respiratory Rate: 20 bpm Temperature: 36 .8 (C) / 98.3 (F) Weight: 178 lbs 06/28/2015 Blood Pressure 1: 124/70 Code: 8480-6 BMI: 31.0 Code: 99599-2 Heart Rate 1: 80 bpm Height: 5'2" Respiratory Rate: 20 bpm Temperature: 36 .8 (C) / 98.3 (F) Weight: 167 lbs 05/02/2015 Blood Pressure 1: 122/76 Code: 8480-6 BMI: 31.4 Code: 68378-9 Heart Rate 1: 78 bpm Height: 5'2" Respiratory Rate: 20 bpm Temperature: 36 .3 (C) / 97.4 (F) Weight: 169 lbs 03/29/2015 Blood Pressure 1: 126/78 Code: 8480-6 BMI: 30.9 Code: 22395-1 Heart Rate 1: 88 bpm Height: 5'2" Respiratory Rate: 20 bpm Temperature: 37 .1 (C) / 98.7 (F) Weight: 166 lbs 02/15/2015 Blood Pressure 1: 126/78 Code: 8480-6 BMI: 30.5 Code: 43328-3 Heart Rate 1: 76 bpm Height: 5'2" Respiratory Rate: 20 bpm Temperature: 36 .6 (C) / 97.8 (F) Weight: 164 lbs 12/30/2014 Blood Pressure 1: 118/84 Code: 8480-6 BMI: 30.1 Code: 73177-2 Heart Rate 1: 84 bpm Height: 5'2" Respiratory Rate: 20 bpm Temperature: 37 .0 (C) / 98.6 (F) Weight: 162 lbs 09/30/2014 Blood Pressure 1: 132/68 Code: 8480-6 BMI: 30.1 Code: 81670-6 Heart Rate 1: 84 bpm Height: 5'2" Respiratory Rate: 22 bpm Temperature: 36 .5 (C) / 97.7 (F) Weight: 162 lbs 07/19/2014 Blood Pressure 1: 126/78 Code: 8480-6 BMI: 29.7 Code: 78261-6 Heart Rate 1: 72 bpm Height: 5'2" Respiratory Rate: 20 bpm Temperature: 36 .8 (C) / 98.2 (F) Weight: 160 lbs 06/01/2014 Blood Pressure 1: 132/86 Code: 8480-6 BMI: 29.6 Code: 85121-4 Heart Rate 1: 72 bpm Height: 5'2" [...] 1: 122/80 Code: 8480-6 BMI: 29.6 Code: 44950-4 Heart Rate 1: 80 bpm Height: 5'2" Respiratory Rate: 20 bpm Temperature: 36 .8 (C) / 98.3 (F) Weight: 159 lbs 08/14/2013 Blood Pressure 1: 138/82 Code: 8480-6 BMI: 27.5 Code: 95551-3 Heart Rate 1: 66 bpm Height: 5'2" Respiratory Rate: 20 bpm Temperature: 36 .5 (C) / 97.7 (F) Weight: 148 lbs 08/03/2013 Blood Pressure 1: 126/82 Code: 8480-6 BMI: 29.1 Code: 01161-7 Heart Rate 1: 72 bpm Height: 5'1" Respiratory Rate: 20 bpm Temperature: 36 .6 (C) / 97.8 (F) Weight: 154 lbs 07/21/2013 Blood Pressure 1: 124/70 Code: 8480-6 BMI: 28.3 Code: 66681-3 Heart Rate 1: 64 bpm Height: 5'1" Respiratory Rate: 22 bpm Temperature: 36 .5 (C) / 97.7 (F) Weight: 150 lbs 06/12/2013 Blood Pressure 1: 124/78 Code: 8480-6 BMI: 28.6 Code: 59130-7 Heart Rate 1: 88 bpm Height: 5'2" Respiratory Rate: 20 bpm Temperature: 36 .9 (C) / 98.4 (F) Weight: 154 lbs 12/25/2012 Blood Pressure 1: 128/84 Code: 8480-6 BMI: 27.0 Code: 04853-0 Heart Rate 1: 76 bpm Height: 5'2" Respiratory Rate: 20 bpm Temperature: 36 .9 (C) / 98.4 (F) Weight: 145 lbs 10/30/2012 Blood Pressure 1: 122/68 Code: 8480-6 BMI: 28.8 Code: 36406-1 Heart Rate 1: 60 bpm Height: 5'2" Temperature: 36.9 (C) / 98.5 (F) Weight: 155 lbs 08/28/2012 Blood Pressure 1: 112/80 Code: 8480-6 BMI: 29.7 Code: 74147-9 Heart Rate 1: 72 bpm Height: 5'2" Respiratory Rate: 20 bpm Temperature: 36 .9 (C) / 98.5 (F) Weight: 160 lbs 05/27/2012 Blood Pressure 1: 128/80 Code: 8480-6 BMI: 28.4 Code: 01200-3 Heart Rate 1: 72 bpm Height: 5'2" Respiratory Rate: 20 bpm Temperature: 36 .8 (C) / 98.2 (F) Weight: 153 lbs 04/30/2012 Blood Pressure 1: 116/70 Code: 8480-6 BMI: 28.8 Code: 47118-1 Heart Rate 1: 84 bpm Height: 5'2" Respiratory Rate: 20 bpm Temperature: 36 .7 (C) / 98.1 (F) Weight: 155 lbs 02/18/2012 Blood Pressure 1: 118/64 Code: 8480-6 BMI: 28.4 Code: 76905-2 Heart Rate 1: 68 bpm Height: 5'2" Temperature: 36.3 (C) / 97.4 (F) Weight: 153 lbs 01/08/2012 Blood Pressure 1: 132/80 Code: 8480-6 BMI: 28.8 Code: 29464-5 Heart Rate 1: 76 bpm Height: 5'2" Respiratory Rate: 20 bpm Temperature: 36 .7 (C) / 98.1 (F) Weight: 155 lbs 10/19/2011 Blood Pressure 1: 102/72 Code: 8480-6 BMI: 27.9 Code: 24828-6 Heart Rate 1: 70 bpm Height: 5'2" Temperature: 36.9 (C) / 98.5 (F) Weight: 150 lbs 09/17/2011 Blood Pressure 1: 126/72 Code: 8480-6 BMI: 28.3 Code: 20810-9 Heart Rate 1: 84 bpm Height: 5'2" Respiratory Rate: 20 bpm Temperature: 36 .7 (C) / 98.1 (F) Weight: 152 lbs 07/05/2011 Blood Pressure 1: 102/68 Code: 8480-6 Heart Rate 1: 88 bpm Temperature: 36.7 (C) / 98.1 (F) Weight: 145 lbs 05/31/2011 Blood Pressure 1: 126/82 Code: 8480-6 BMI: 27.3 Code: 05374-5 Heart Rate 1: 80 bpm Height: 5'2" [...] Weight: 130 lbs 01/02/2010 BMI: 25.7 Code: 99213-9 Heart Rate 1: 84 bpm Height: 5 [...] up 04/19/2016 otalgia 04/10/2016 Patient went to [facility] this past Saturday and placed on [...] phlegm Encounters Encounter Performer Location Codes Date () OFFICE/OUTPATIENT VISIT EST Diagnosis: Shingles[ICD10: B02.9] Almaz Carrasco [facility] CPT-4: 94847 12/03/2019 ([id number]) OFFICE/OUTPATIENT VISIT EST Diagnosis: Nasopharyngitis[ICD10: J00] Nikole WU SKaz ARROYO [facility] CPT-4: 60208 08/18/2019 ([id number]) OFFICE/OUTPATIENT VISIT EST Diagnosis: Low back pain[ICD10: M54.5] Diagnosis: Personal history of urinary (tract) infections[ICD10: Z87.440] Nikole ENRIQUEZ [facility] CPT-4: 15480 05/25/2019 ([id number]) OFFICE/OUTPATIENT VISIT EST Diagnosis: Palpitations[ICD10: R00.2] Almaz URIBE [facility] CPT-4: 89010 05/06/2019 OFFICE/OUTPATIENT VISIT EST Diagnosis: Other infective otitis externa, right ear[ICD10: H60.391] Diagnosis: Acute serous otitis media, recurrent, right ear[ICD10: H65.04] Elisha ENRIQUEZ DO [facility] CPT-4: 34316 12/16/2018 ([id number]) NURSE/OUTPATIENT VISIT EST Diagnosis: Dysuria[ICD10: R30.0] Almaz ENRIQUEZ DO [facility] CPT-4: 74628 12/02/2018 ([id number]) OFFICE/OUTPATIENT VISIT EST Diagnosis: Palpitations[ICD10: R00.2] Diagnosis: Abnormal results of thyroid function studies[ICD10: R94.6] Almaz ENRIQUEZ DO [facility] CPT-4: 61040 09/09/2018 ([id number]) OFFICE/OUTPATIENT VISIT EST Diagnosis: Pain in right knee[ICD10: M25.561] Almaz ENRIQUEZ [facility] CPT-4: 86192 08/28/2018 ([id number]) OFFICE/OUTPATIENT VISIT EST Diagnosis: Gastro-esophageal reflux disease without esophagitis[ICD10: K21.9] Almaz ENRIQUEZ DO [facility] CPT-4: 94092 08/18/2018 ([id number]) OFFICE/OUTPATIENT VISIT EST Diagnosis: Other polyuria[ICD10: R35.8] Almaz ENRIQUEZ DO [facility] CPT-4: 65498 10/21/2017 ([id number]) OFFICE/OUTPATIENT VISIT EST Diagnosis: Otalgia, left ear[ICD10: H92.02] Diagnosis: Left temporomandibular joint disorder, unspecified[ICD10: M26.602] Almaz ENRIQUEZ DO [facility] CPT-4: 38157 06/24/2017 OFFICE/OUTPATIENT VISIT EST Diagnosis: Insect bite (nonvenomous) of right upper arm, sequela[ICD10: S40.861S] Almaz ENRIQUEZ DO [facility] CPT-4: 31097 04/11/2017 ([id number]) OFFICE/OUTPATIENT VISIT EST Diagnosis: Other seasonal allergic rhinitis[ICD10: J30.2] Aracelis MAGANALINE Dee ENRIQUEZ DO [facility] CPT-4: 36157 01/18/2017 ([id number]) OFFICE/OUTPATIENT VISIT EST Diagnosis: Abnormal weight gain[ICD10: R63.5] Diagnosis: Tinea corporis[ICD10: B35.4] Almaz MAGANALINE Dee ENRIQUEZ DO [facility] CPT-4: 59756 11/26/2016 ([id number]) OFFICE/OUTPATIENT VISIT EST Diagnosis: Abnormal weight gain[ICD10: R63.5] Almaz Zoe COMBS HEVER Dee ENRIQUEZ DO [facility] CPT-4: 15769 08/23/2016 ([id number]) OFFICE/OUTPATIENT VISIT EST Diagnosis: Pain in left knee[ICD10: M25.562] Aracelis MAGANABRITT Villafana Dee ENRIQUEZ DO [facility] CPT-4: 19835 06/14/2016 OFFICE/OUTPATIENT VISIT EST Diagnosis: Other specified disorders of Eustachian tube, left ear[ICD10: H69.82] Radha RYDERER [facility] CPT-4: 48525 04/19/2016 ([id number]) OFFICE/OUTPATIENT VISIT EST Diagnosis: Other specified disorders of Eustachian tube, bilateral[ICD10: H69.83] Diagnosis: Otitis media, unspecified, right ear[ICD10: H66.91] Aracelis MAGANALINE Dee ENRIQUEZ DO [facility] CPT-4: 53464 04/10/2016 OFFICE/OUTPATIENT VISIT EST Diagnosis: Acute pharyngitis, unspecified[ICD10: J02.9] Radha RYDERER [facility] CPT-4: 83241 11/22/2015 ([id number]) OFFICE/OUTPATIENT VISIT EST Diagnosis: Encounter for general adult medical examination without abnormal findings[ICD10: Z00.00] Almaz Zoe MAGANALINE Dee ENRIQUEZ DO [facility] CPT-4: 29853 10/03/2015 ([id number]) OFFICE/OUTPATIENT VISIT EST Diagnosis: Myalgia[ICD10: M79.1] Diagnosis: Unspecified abdominal pain[ICD10: R10.9] Almaz ENRIQUEZ DO [facility] CPT-4: 80786 08/01/2015 ([id number]) OFFICE/OUTPATIENT VISIT EST Diagnosis: Proctalgia[ICD9: 569.42] Diagnosis: Rectal bleeding[ICD9: 569.3] Almaz ENRIQUEZ DO [facility] CPT-4: 52248 06/28/2015 ([id number]) OFFICE/OUTPATIENT VISIT EST Diagnosis: Right calf pain[ICD9: 729.5] Za RuffinJimi ALMAZ ENRIQUEZ DO [facility] CPT-4: 82561 05/02/2015 ([id number]) OFFICE/OUTPATIENT VISIT EST Diagnosis: Flank pain[ICD9: 789.00] Diagnosis: MALAISE AND FATIGUE[ICD9: 780.79] Diagnosis: ABNORMAL WEIGHT GAIN[ICD9: 783.1] Almaz ENRIQUEZ [facility] CPT-4: 20090 03/29/2015 ([id number]) OFFICE/OUTPATIENT VISIT EST Diagnosis: ALLERGIC RHINITIS[ICD9: 477.9] Almaz ENRIQUEZ DO [facility] CPT-4: 88428 02/15/2015 ([id number]) OFFICE/OUTPATIENT VISIT EST Diagnosis: GERD[ICD9: 530.81] Almaz ENRIQUEZ DO [facility] CPT-4: 56023 12/30/2014 ([id number]) OFFICE/OUTPATIENT VISIT EST Diagnosis: Tenosynovitis, de Quervain[ICD9: 727.04] Diagnosis: Paresthesia of hand[ICD9: 782.0] Almaz ENRIQUEZ DO [facility] CPT-4: 05966 09/30/2014 ([id number]) OFFICE/OUTPATIENT VISIT EST Diagnosis: ABDOMINAL PAIN[ICD9: 789.00] Diagnosis: GERD[ICD9: 530.81] Diagnosis: TREMOR NEC[ICD9: 333.1] Almaz GRAHAM [facility] CPT-4: 97890 07/19/2014 ([id number]) OFFICE/OUTPATIENT VISIT EST Diagnosis: PAIN, LOWER BACK[ICD9: 724.2] Diagnosis: SPASM OF MUSCLE[ICD9: 728.85] Almaz ENRIQUEZ [facility] CPT-4: 02329 06/01/2014 OFFICE/OUTPATIENT VISIT EST Diagnosis: TONSILLITIS, ACUTE[ICD9: 463] Diagnosis: STREPTOCOCCAL INFECTION GROUP A[ICD9: 041.01] Radha ENRIQUEZ [facility] CPT-4: 02478 12/25/2013 OFFICE/OUTPATIENT VISIT EST Diagnosis: DYSURIA[ICD9: 788.1] Radha ENRIQUEZ [facility] CPT-4: 88627 12/17/2013 ([id number]) OFFICE/OUTPATIENT VISIT EST Diagnosis: BRONCHITIS, ACUTE[ICD9: 466.0] Almaz ENRIQUEZ [facility] CPT-4: 70918 09/15/2013 OFFICE/OUTPATIENT VISIT EST Diagnosis: URI, ACUTE[ICD9: 465.9] Za Barajas ALMAZ RYDER [facility] CPT-4: 98939 08/14/2013 ([id number]) OFFICE/OUTPATIENT VISIT EST Diagnosis: PALPITATIONS[ICD9: 785.1] Almaz OWEN [facility] CPT-4: 96209 08/03/2013 OFFICE/OUTPATIENT VISIT EST Diagnosis: SINUSITIS, ACUTE[ICD9: 461.9] Diagnosis: Dysfunction of left Eustachian tube[ICD9: 381.81] Radha ENRIQUEZ [facility] CPT-4: 61806 07/21/2013 OFFICE/OUTPATIENT VISIT EST Diagnosis: Vaginal disorder[ICD9: 623.9] Za Barajas [facility]: 90204 06/12/2013 OFFICE/OUTPATIENT VISIT EST Diagnosis: HYPOGLYCEMIA NEC[ICD9: 251.1] Diagnosis: GERD[ICD9: 530.81] Almaz ENRIQUEZ [facility] CPT-4: 43983 12/25/2012 OFFICE/OUTPATIENT VISIT EST Diagnosis: COUGH[ICD9: 786.2] Diagnosis: PHARYNGITIS, ACUTE[ICD9: 462] Almaz ENRIQUEZ [facility] CPT-4: 24246 10/30/2012 OFFICE/OUTPATIENT VISIT EST Diagnosis: HYPOGLYCEMIA[ICD9: 251.2] Diagnosis: GERD[ICD9: 530.81] Diagnosis: Fibroid tumor[ICD9: 218.9] Almaz Price OR JOJO [facility] CPT-4: 16760 08/28/2012 ([id number]) OFFICE/OUTPATIENT VISIT EST Diagnosis: Hyperglycemia[ICD9: 790.29] Almaz Mancia. O RENDER [facility] CPT-4: 49527 08/27/2012 ([id number]) OFFICE/OUTPATIENT VISIT EST Diagnosis: GERD[ICD9: 530.81] Almaz ENRIQUEZ [facility] CPT-4: 39479 05/27/2012 ([id number]) OFFICE/OUTPATIENT VISIT EST Diagnosis: HYPOGLYCEMIA NEC[ICD9: 251.1] Diagnosis: GERD[ICD9: 530.81] Almaz ENRIQUEZ [facility] CPT-4: 79850 04/30/2012 ([id number]) OFFICE/OUTPATIENT VISIT EST Diagnosis: HYPOGLYCEMIA[ICD9: 251.2] Almaz NEWBERRY NDER [facility] CPT-4: 65918 04/29/2012 OFFICE/OUTPATIENT VISIT EST Diagnosis: CONJUNCTIVITIS NOS[ICD9: 372.30] Almaz NEWBERRYNDGLADYS [facility] CPT-4: 24409 02/18/2012 OFFICE/OUTPATIENT VISIT EST Diagnosis: Hyperinsulinemia[ICD9: 251.1] Diagnosis: HYPOGLYCEMIA[ICD9: 251.2] Almaz NEWBERRY NDER [facility] CPT-4: 16615 01/08/2012 ([id number]) OFFICE/OUTPATIENT VISIT EST Diagnosis: Leg cramps[ICD9: 729.82] Almaz Zoe MAGANALINE BlancheKaz GERARDO PAULIE [facility] CPT-4: 52192 12/25/2011 OFFICE/OUTPATIENT VISIT EST Diagnosis: PHARYNGITIS, ACUTE[ICD9: 462] Almaz Zoe MAGANALINE BlancheKaz ROHITHNDER [facility] CPT-4: 48235 10/19/2011 OFFICE/OUTPATIENT VISIT EST Diagnosis: Pyelonephritis[ICD9: 590.80] Diagnosis: Flank pain[ICD9: 789.00] Diagnosis: Recurrent UTI[ICD9: 599.0] Diagnosis: Thoracic back pain[ICD9: 724.1] Almaz ENRIQUEZ DO [facility] CPT-4: 37222 09/17/2011 OFFICE/OUTPATIENT VISIT EST Diagnosis: PHARYNGITIS, ACUTE[ICD9: 462] Almaz ENRIQUEZ DO [facility] CPT-4: 01927 07/05/2011 OFFICE/OUTPATIENT VISIT EST Diagnosis: GERD[ICD9: 530.81] Diagnosis: ABDOMINAL PAIN[ICD9: 789.00] Almaz ENRIQUEZ DO [facility] CPT-4: 35717 05/31/2011 OFFICE/OUTPATIENT VISIT EST Almaz NEWBERRY NDER [facility] CPT- 4: 05585 04/11/2011 ([id number]) OFFICE/OUTPATIENT VISIT EST Almaz LAFLEUR SKaz NEWBERRYNDER DO [facility] CPT-4: 57502 03/13/2011 ([id number]) OFFICE/OUTPATIENT VISIT EST Almaz LAFLEUR SKaz NEWBERRYNDER DO [facility] CPT-4: 99359 11/30/2010 ([id number]) OFFICE/OUTPATIENT VISIT, EST Almza TSAI SKaz NEWBERRYNDER DO [facility] CPT-4: 46775 11/02/2010 ([id number]) OFFICE/OUTPATIENT VISIT, EST Lucy Willson ALMAZ SKaz [facility] CPT-4: 97849 07/25/2010 ([id number]) OFFICE/OUTPATIENT VISIT, EST Almaz NEWBERRYNDER DO [facility] CPT-4: 13561 01/02/2010 Plan of Care Planned Activity Notes Codes Status Date Visit Diagnosis Plan: Shingles Discussion: Finish all Bactrim and Acyclovir Notify if any worsening/return Looked up wound culture results and are negative ICD-9 : 053.9 ICD-10 : B02.9 12/03/2019 Appointment: Almaz Enriquez WPtel: [phone] [facility] [facility] Follow Up 12/03/2019 Visit Diagnosis Plan: Nasopharyngitis Discussion: disc ussed that most likely viral illness. saline nasal spray given to patient with instructions to use prn congestion. if symptoms worsen or continued past 10 days, call clinic. tylenol/i buprofen prn pain or fever. ICD-9 : 460 ICD-10 : J00 08/18/2019 Appointment: Nikole Gabriel [address] [place], [place] [address] ACUTE ILLNESS 08/18/2019 Visit Diagnosis Plan: Low back pain Discussion: urine dip neg. will send for culture. bactrim bid for 7 days to cover for infection due to patient's hx. instructed to push water. call office if no improvement tomorrow or to ED with worsening. ICD-9 : 724.2 ICD-10 : M54.5 05/25/2019 Appointment: Nikole Gabriel [address] [place] [address] ACUTE ILLNESS 05/25/2019 Visit Diagnosis Plan: Palpitations Discussion: Check C BC, iron, ferritin, TSH, Free T4, CMP Check 24hr holter Denies any energy drinks, supplements, etc. To ER if come on and persist with any associated dyspnea, dizziness, CP, etc. ICD-9 : 785.1 ICD-10 : R00.2 05/06/2019 Appointment: Almaz Enriquez WPtel: [phone] [facility] [facility] 05/06/2019 Visit Diagnosis Plan: Acute [...] : 380.16 ICD-10 : H60.391 12/16/2018 Appointment: Cali, Elisha J [address] ACUTE ILLNESS 12/16/2018 Patient Education: amoxicillin- Optimize[employer] Coupon [id number] [email or web address] Completed 12/16/2018 Appointment: Almaz Enriquez WPtel: [address] [place] [address] 12/02/2018 Visit Diagnosis Plan: Palpitations Discussion: Discuss [...] : R94.6 09/09/2018 Appointment: Almaz Enriquez WPtel: [address] [place] [address] Hospital Follow Up 09/09/2018 Visit Diagnosis Plan: Pain in right knee Discussion: Danilo razo to Dr. Pako Lowry and dwight del cidarechristy ICD-9 : 719.46 ICD-10 : M25.561 08/28/2018 Appointment: Almaz Enriquez WPtel: [address] [place] [address] ACUTE ILLNESS 08/28/2018 Care Plan: Referral Order SNOMED-CT : 30 [id number] Pending 08/28/2018 Visit Diagnosis Plan: Gastro-esophageal reflux disease without esophagitis Discussion: Left lower chest pain appears to be from GI etiology so will resume protonix 40mg po BID for next week and see if resolves, if improved then can go to protonix 40mg po daily ICD-9 : 530.81 ICD-10 : K21.9 08/18/2018 Appointment: Nikole Gabriel [address] ACUTE ILLNESS 08/18/2018 Patient Education: Patient Medication Summary Completed 05/13/2018 Care Plan: MAMMOGRAM SCREENING LOINC : 2 6347-5 Pending 05/13/2018 Appointment: Almaz Enriquez WPtel: [facility]5 [facility] UA 10/21/2017 Patient Education: Patient Medication Summary Completed [...] : H92.02 06/24/2017 Appointment: Almaz Enriquez WPtel: [facility] [facility] 06/24/2017 Patient Education: Patient Medication Summary Completed 06/24/2017 Patient Education: Patient Medication Summary Completed 05/14/2017 Visit Diagnosis Plan: Insect bite (nonvenomous) of rig ht upper arm, sequela Discussion: Finish all abx Add Zyrtec 10mg daily for 10 days ICD-9 : 906.2 ICD-10 : S40.861S 04/11/2017 Appointment: Almaz Enriquez WPtel: [facility] ER Follow UP 04/11/2017 Patient Education: Patient Medication Summary Completed 04/11/2017 Visit Diagnosis Plan: Other seasonal allergic rhinitis Discussion: Add benadryl at bedtime Nasal rinses, steroid nasal spray Vicks and humidifier Monitor for signs of infection Follow up PRN ICD-9 : 477.9 ICD-10 : J30.2 01/18/2017 Appointment: Aracelis Mercado [address] [place], [place] [phone] ACUTE ILLNESS 01/18/2017 Patient Education: Patient Medication Summary Completed 01/18/2017 Visit Diagnosis Plan: Abnormal weight gain Discussion: Long discussion about diet/exercise/lifestyle change--3month trial ICD-9 : 783.1 ICD-10 : R63.5 11/26/2016 Visit Diagnosis Plan: Tinea corporis Discussion: Ketoc onazole BID for 2 weeks Notify if persist or worsens ICD-9 : 110.5 ICD-10 : B35.4 11/26/2016 Appointment: Almaz Enriquez WPtel: [address] [place], [place] [phone] 11/22 confirm~sl FOLLOW UP 11/26/2016 Patient Education: Patient Medication Summary Completed 11/26/2016 Appointment: Almaz Enriquez WPtel: [address] [place], [place] [phone] WEIGHT CHECK 10/25/2016 Patient Education: Patient Medication Summary Completed 10/25/2016 Appointment: Almaz Enriquez WPtel: [address] [place], [place] [phone] BP CHECK 09/21/2016 Patient Education: Patient Medication Summary Completed 09/21/2016 Visit Plan: Is working out routinely Bulmaro l do phenteramine 37.5mg Weight and BP check next 2 months then fwup in 3mos 08/23/2016 Appointment: Almaz Enriquez WPtel: [address] [place], [place] [phone] 08/22 confirmed~sl FOLLOW UP 08/23/2016 Patient Education: Patient Medication Summary Completed 08/23/2016 Patient Education: Patient Medication Summary Completed 06/22/2016 Care Plan: X-RAY EXAM OF KNEE 1 [place] 2 [place] : 17238-7 Pending 06/22/2016 Visit Plan: RICE and rx as above Reduce strain on knee OTC pain relievers if needed Knee sleeve Call in 7-10 days if not improving for xray orders 06/14/2016 Appointment: Aracelis Mercado [address] [place] [address] ACUTE ILLNESS 06/14/2016 Patient Education: Patient Medication Summary Completed 06/14/2016 Referral: Jatinder Ambrose WPtel: [address] Referral Appointment Requested 05/09/2016 Visit Plan: Attempted to use ET popper w ith minimal relief Fluticasone nasal spray - 2 sprays each nostril one time daily 04/19/2016 Appointment: Radha Botello WPtel: [address] [place] [address] 04/18 confirmed~sl ACUTE ILLNESS 04/19/2016 Patient Education: [...] Follow up PRN 04/10/2016 Appointment: Aracelis Mercado [address] [place] [address] ACUTE ILLNESS 04/10/2016 Patient Education: Patient Medication Summary Completed 04/10/2016 Visit Plan: Strep Screen - negative Geronimo mmending warm saline gargles and notify if symptoms worsen 11/22/2015 Appointment: Radha Botello WPtel: [address] [place] [address] ACUTE ILLNESS 11/22/2015 Patient Education: Patient Medication Summary Completed 11/22/2015 Appointment: Almaz Enriquez WPtel: [address] [place] [address] LAB 10/03/2015 Patient Education: Patient Medication Summary Completed 10/03/2015 Appointment: Almaz Enriquez WPtel: [address] [place] [address] UA 08/01/2015 Patient Education: Patient Medication Summary Completed 08/01/2015 Visit Plan: Anusol HC supp for 2weeks Al ign daily for 2weeks If resolves then will observe as came on after recent GI bug but if persists or comes back will need colonoscopy 06/28/2015 Appointment: Almaz Enriquez WPtel: [address] [place] [address] ACUTE ILLNESS 06/28/2015 Patient Education: Patient Medication Summary Completed 06/28/2015 Appointment: Almaz Enriquez WPtel: [address] [place] [address] 05/27 cn FOLLOW UP 05/30/2015 Appointment: Almaz Enriquez WPtel: [address] [place] [address] ACUTE ILLNESS 05/16/2015 Visit Plan: Venous dopple of right leg o rdered (tomorrow 10am) Recommended daily EC ASA until results 05/02/2015 Appointment: Za Barajas WPtel: [address] [place] [address] ACUTE ILLNESS 05/02/2015 Patient Education: Patient Medication Summary Completed 05/02/2015 Visit Plan: Contrave starter pack Fwup i n 2mos 03/29/2015 Appointment: Almaz Enriquez WPtel: [address] [place] [address] ER Follow UP 03/29/2015 Patient Education: Patient Medication Summary Completed 03/29/2015 Visit Plan: Start Loratadine 10mg po BID Add flonase q HS 02/15/2015 Appointment: Almaz Enriquez WPtel: [address] [place] [address] ACUTE ILLNESS 02/15/2015 Patient Education: Patient Medication Summary Completed 02/15/2015 Visit Plan: Continue protonix and carafa te See GI for update EGD vs pH probe/etc. Discussed musculoskeletal etiology as well as patient does have some chest wall pain and thoracic pain 12/30/2014 Appointment: Almaz Enriquez WPtel: [address] [place] [address] ER Follow UP 12/30/2014 Patient Education: Patient Medication Summary Completed 12/30/2014 Referral: Garo Reddy [facility]Ptel: [address] [facility] [facility] Dr Reddy office verifies ins they s chedule with patient directly 10/20/14 Per Patient - she cannot go to this consult because due to her work comp case she must see their preferred dr. Completed 10/12/2014 Appointment: Almaz Enriquez WPtel: [address] [place], [place] [phone] ER Follow UP 09/30/2014 Patient Education: Patient Medication Summary Completed 09/30/2014 Visit Plan: List reglan as an allergy--t remor of thumb has improved since stopping Add carafate to protonix for next 2-4weeks If resolves will observe, if not will need updated EGD 07/19/2014 Appointment: Almaz Enriquez WPtel: [address] [place], [place] [phone] 07/16 also left message that payment is due E R Follow UP 07/19/2014 Patient Education: Patient Medication Summary Completed 07/19/2014 Visit Plan: Stretches, moist heat, topic al biofreeze Amrix 15mg q PM Celebrex 200mg po BID 06/01/2014 Appointment: Almaz Enriquez WPtel: [address] [place], [place] [phone] Patient will bring in/call in $50.00 payment on 06/08-LB ACUTE ILLNESS 06/01/2014 Patient Education: Patient Medication Summary Completed 06/01/2014 Appointment: Radha Botello WPtel: [address] [place] [address], [place] [phone] US was in ER on 12/19/13 ACUTE ILLNESS 12/25/2013 Patient Education: Patient Medication Summary Completed 12/25/2013 Appointment: Radha Botello WPtel: [address], [place] [phone] ACUTE ILLNESS 12/17/2013 Patient Education: Patient Medication Summary Completed 12/17/2013 Visit Plan: Supportive care. Rest, Fluid s, Tylenol/Motrin prn fever or bodyaches. Notify if worsening symptoms. Zitthromax 500mg daily for 1wk Tussionex 09/15/2013 Appointment: Almaz Enriquez WPtel: [address] [place] [address] ACUTE ILLNESS 09/15/2013 Patient Education: Patient Medication Summary Completed 09/15/2013 Appointment: Za Barajas WPtel: [address] [place] [address] ACUTE ILLNESS 08/14/2013 Patient Education: Patient Medication Summary Completed 08/14/2013 Visit Plan: Await holter results Avoid d econgestants, caffeine Discussed likely secondary to recent illness, steroids, decongestants If persists will get ECHO 08/03/2013 Appointment: Almaz Enriquez WPtel: [address] [place] [address] ER Follow UP 08/03/2013 Patient Education: Patient Medication Summary Completed 08/03/2013 Appointment: Radha Botello WPtel: [address] [place] [address] ACUTE ILLNESS 07/21/2013 Patient Education: Patient Medication Summary Completed 07/21/2013 Appointment: Za Barajas WPtel: [address] [place] [address] ACUTE ILLNESS 06/12/2013 Patient Education: Patient Medication Summary Completed 06/12/2013 Appointment: Almaz Enriquez WPtel: [address] [place], [place] [phone] US FOLLOW UP 12/25/2012 Patient Education: Patient Medication Summary Completed 12/25/2012 Visit Plan: Azithromycin and codeine/lonny af cough syrup. 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 Discussed notifying if symptoms worsen or persist. Fluids and comfort care. 10/30/2012 Appointment: Lucy Willson WPtel: [address] [place] [address] ACUTE ILLNESS 10/30/2012 Patient Education: Patient Medication Summary Completed 10/30/2012 Visit Plan: Continue metformin and all o ther meds Pt going for surgery for hysterectomy 08/28/2012 Appointment: Almaz Enriquez WPtel: [address] [place], [place] [phone] FOLLOW UP 08/28/2012 Patient Education: Patient Medication Summary Completed 08/28/2012 Appointment: Almaz Enriquez WPtel: [address] [place], [place] [phone] LAB 08/27/2012 Patient Education: Patient Medication Summary Completed 08/27/2012 Visit Plan: Continue carafate and proton ix Proceed with EGD 05/27/2012 Appointment: Almaz Enriquez WPtel: [address] [place] [address] Follow Up 05/27/2012 Patient Education: Patient Medication Summary Completed 05/27/2012 Visit Plan: Continue metformin and accuc hecks Restart Dexilant Check insulin level with CMP in 4mos 04/30/2012 Appointment: Almaz Enriquez WPtel: [address] [place] [address] FOLLOW UP 04/30/2012 Patient Education: Patient Medication Summary Completed 04/30/2012 Appointment: Almaz Enriquez WPtel: [address] [place], [place] [id number] 04/29/2012 Patient Education: Patient Medication Summary Completed 04/29/2012 Visit Plan: Pt. 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 Pt. is given written RX for Polymyxin B opthalmic drops. Recommend follow up with Dr. Beltre. Discussed precautions to prevent spread. 02/18/2012 Appointment: Lucy Willson WPtel: [address] [place] [address] ACUTE ILLNESS 02/18/2012 Patient Education: Patient Medication Summary Completed 02/18/2012 Visit Plan: Long discussion about diet a nd exercise and eating 6 manny meals a day with protein Add daily metformin 250mg Restart MV with iron Glucometer to use prn 01/08/2012 Appointment: Almaz Enriquez WPtel: [address] [place] [address] FOLLOW UP 01/08/2012 Patient Education: Patient Medication Summary Completed 01/08/2012 Appointment: Almaz Enriquez WPtel: [address] [place] [address] 12/25/2011 Patient Education: Patient Medication Summary Completed 12/25/2011 Visit Plan: amoxicillin. Discussed comfo rt care and cold/icy fluids. Tylenol/motrin for pain. Pt. will notify if fever or worsening symptoms. Discussed completion of antibiotic regimen 10/19/2011 Appointment: Lucy Willson WPtel: [address] [place] [address] ACUTE ILLNESS 10/19/2011 Patient Education: Patient Medication Summary Completed 10/19/2011 Appointment: Almaz Enriquez WPtel: [address] [place] [address] Follow Up 09/17/2011 Patient Education: Patient Medication Summary Completed 09/17/2011 Visit Plan: New toothebrush in 5 daysSal ine nasal flushes prn. Tylenol/Motrin prn headache. Notify if persists/symptoms worsening. 07/05/2011 Appointment: Almaz Enriquez WPtel: [address] [place] [address] ACUTE ILLNESS 07/05/2011 Patient Education: Patient Medication Summary Completed 07/05/2011 Appointment: Almaz Enriquez WPtel: [address] [place] [address] ACUTE ILLNESS 05/31/2011 Patient Education: Patient Medication Summary Completed 05/31/2011 Appointment: Almaz Enriquez WPtel: [address] [place], [place] [id number] [place] ACUTE ILLNESS 04/11/2011 Patient Education: Patient Medication Summary Completed 04/11/2011 Visit Plan: pt. will take Cefuroxime axe til. Will notify if symptoms worsen. 03/13/2011 Appointment: Lucy Willson WPtel: [address] [place] [address] ACUTE ILLNESS 03/13/2011 Patient Education: Patient Medication Summary Completed 03/13/2011 Visit Plan: Continue brace for 2-4 more weeks May exercise to point of discomfort then stop 11/30/2010 Appointment: Almaz Enriquez WPtel: [address] [place] [address] FOLLOW UP 11/30/2010 Patient Education: Patient Medication Summary Completed 11/30/2010 Visit Plan: Continue aircast and add Vim ovo po BID 11/02/2010 Appointment: Almaz Enriqueztel: [address] [place] [address] ER Follow UP 11/02/2010 Patient Education: Patient Medication Summary Completed 11/02/2010 Appointment: Almaz Enriqueztel: [address] [place] [address] 08/01/2010 Patient Education: Patient Medication Summary Completed 08/01/2010 Appointment: Lucy Willson WPtel: [address] [place] [address] ACUTE ILLNESS 07/25/2010 Patient Education: Patient Medication Summary Completed 07/25/2010 Visit Plan: Supportive care. Rest, Fluid s, Tylenol/Motrin prn fever or bodyaches. Notify if worsening symptoms. 01/02/2010 Appointment: Almaz Enriqueztel: [address] [place] [address] ACUTE ILLNESS 01/02/2010 Patient Education: Patient Medication Summary Completed 01/02/2010 Referral: Cyrus Mintel: [address] Referral Appointment Requested Referral: Cyrus Minl: [address] [id number] [place] Referral Initiated Referral: Terrence Mehta WPtel: [id number] Mehta will review and call patien to schedule Completed Referral: Judy Prasad WPtel: [address] [id number] Referral Initiated Instructions Comment . Supportive care. [...] codeine/guiaf cough s yrup. 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
--- OUTSIDE RECORDS SUMMARY | 2020-04-20 21:01 | XMS REPORT | CCD ---
Author Author Fay Enriquez D.O., DO [facility] Address [address] [place] [address] Phone Care Team Providers Care Cytotechnologist/Cytology Supervisor Name Role Phone Almaz Enriquez D.O., PP Unavailable CCM Unavailable Summary Purpose Interface Exchange Insurance Providers Payer name Policy type / Coverage type Covered green party ID Effective Begin Date Effective End Date Blue Cross Blue Shield Blue Cross/Blue Shield [id number] Unknown Family history Mother Diagnosis Age At Onset Diabetes mellitus Type 1 Unknown Social History Social History Element Codes Description Effective Dates Marital status Unknown 09/17/[address]: [id number] Has never smoked or chewed tobacco 04/25/2011 [...] Instructions Protonix 40 mg tablet,delayed release RxNorm: 258164 1 TABLET(S ) PO QD 09/15/2019 12/13/2019 Active Protonix 40 mg tablet,delayed release RxNorm: 087748 1 Tablet(s ) PO QD 06/05/2019 09/02/2019 Inactive Bactrim DS 800 mg-160 mg tablet RxNorm: 988086 1 Tablet(s) PO BID 0 05/25/2019 05/31/2019 Inactive fhisbwis-optvisaqr-brwvfloro 3.5 mg/mL-10,000 unit/mL- 1 % ear solution RxNorm: 901050 4 Drop(s) otic (ear) TID 12/17/2018 12/16/2018 Inactive lhtcsioh-hbsfvlmja-nqqoggnja 3.5 mg/mL-10,000 unit/mL- 1 % ear solution RxNorm: 268354 4 Drop(s) otic (ear) TID 12/17/2018 12/23/2018 Inactive rig ht ear ofloxacin 0.3 % ear drops RxNorm: 861935 5 Drop(s) otic (ear) BID 0 12/16/2018 12/16/2018 Inactive right ear amoxicillin 875 mg tablet RxNorm: 668194 1 Tablet(s) PO BID 019 12/25/2018 Inactive Diflucan 200 mg tablet RxNorm: 846474 1 Tablet(s) PO Q72H 12/16/2018 01/04/2019 Inactive Bactrim DS 800 mg-160 mg tablet RxNorm: 628815 1 Tablet(s) PO BID 0 12/02/2018 12/01/2018 Inactive Bactrim DS 800 mg-160 mg tablet RxNorm: 636103 1 Tablet(s) PO BID 0 12/02/2018 12/08/2018 Inactive Protonix 40 mg tablet,delayed release RxNorm: 629679 1 Tablet(s ) PO QD 09/23/2018 12/21/2018 Inactive Protonix 40 mg tablet,delayed release RxNorm: 338393 1 Tablet(s ) PO BID 09/18/2018 09/22/2018 Inactive Voltaren 1 % topical gel RxNorm: 305045 2 Gram(s) TOP QID to ri ght knee 08/28/2018 05/05/2019 Inactive Diflucan 150 mg tablet RxNorm: 650982 1 Tablet(s) PO Q7 2H Take one tablet today and repeat in 3 days if no improvement. 10/23/2017 08/17/2018 Inactive Diflucan 150 mg tablet RxNorm: 162210 1 Tablet(s) PO Q7 2H Take one tablet today and repeat in 3 days if no improvement. 10/04/2017 10/22/2017 Inactive ofloxacin 0.3 % ear drops RxNorm: 805662 4 Drop(s) OTIC TID for 1 week 06/24/2017 08/17/2018 Inactive Medrol (Scar) 4 mg tablets in a dose pack RxNorm: 227704 Take as directed 01/18/2017 04/10/2017 Inactive ketoconazole 2 % topical cream RxNorm: 079096 Applicati on TOP BID to lesion x 2 weeks 11/26/2016 01/17/2017 Inactive Protonix 40 mg tablet,delayed release RxNorm: 201742 1 TABLET(S ) PO QD 10/13/2016 05/05/2019 Inactive phentermine 37.5 mg tablet RxNorm: 248175 1 Tablet(s) PO QAM 201511/25/2016 Inactive Medrol (Scar) 4 mg tablets in a dose pack RxNorm: 168160 Take as directed 06/14/2016 08/22/2016 Inactive Diflucan 150 mg tablet RxNorm: 540446 1 Tablet(s) PO QD . May repeat in 2-3 days if needed. 04/10/2016 04/11/2016 Inactive amoxicillin 875 mg tablet RxNorm: 715906 1 Tablet(s) PO BID 016 04/18/2016 Inactive Medrol (Scar) 4 mg tablets in a dose pack RxNorm: 162005 Take as directed 04/10/2016 04/18/2016 Inactive Anusol-HC 25 mg suppository RxNorm: 0291544 1 Suppository RTL BID 0 06/28/2015 07/11/2015 Inactive Protonix 40 mg tablet,delayed release RxNorm: 346108 1 Tablet(s ) PO QD 04/27/2015 10/23/2015 Inactive Contrave 8 mg-90 mg tablet,extended release RxNorm: 1486570 1 Tablet(s) PO QAM for 1 week then 1 po BID for 1week then 1 in AM and 2 in PM for 1week then 2 po BID 03/29/2015 06/27/2015 Inactive [SAVINGS FOR UNI NSURED PATIENTS -- BIN:[id number], PCN: [id number], Group: [id number], ID# [id number], Process claim through [employer], for questions: . THIS IS NOT INSURANCE.] Flonase Allergy Relief 50 mcg/actuation nasal spray,suspensi on RxNorm: 2 [place] NASAL QHS 02/15/2015 03/28/2015 Inactive Carafate 1 gram tablet RxNorm: 684694 1 Tablet(s) PO AC & HS 201406/13/2016 Inactive Diflucan 100 mg tablet RxNorm: 290970 1 Tablet(s) PO QD 09/30/2014 Inactive metformin ER 500 mg tablet,extended release 24hr RxNorm: 860 975 1/2 Tablet(s) PO QD 09/15/2014 12/29/2014 Inactive metformin ER 500 mg tablet,extended release 24hr RxNorm: 860 975 1/2 Tablet(s) PO QD 09/15/2014 09/14/2014 Inactive Carafate 1 gram tablet RxNorm: 152889 1 Tablet(s) PO AC & HS 201309/16/2014 Inactive Diflucan 100 mg tablet RxNorm: 233900 1 Tablet(s) PO QD 12/28/2013 Inactive amoxicillin 875 mg tablet RxNorm: 968969 1 Tablet(s) PO BID 014 01/03/2014 Inactive Protonix 40 mg tablet,delayed release RxNorm: 844930 1 Tablet(s ) PO QD 12/03/2013 07/25/2014 Inactive Zithromax 250 mg tablet RxNorm: 439612 2 Tablet(s) PO QD 09/15/2013 1 11/22/2012 Inactive Flagyl 500 mg tablet RxNorm: 669318 1 Tablet(s) PO Q12H 06/12/2013 Inactive Diflucan 100 mg tablet RxNorm: 805464 1 Tablet(s) PO QD 12/08/2012 Inactive Diflucan 100 mg tablet RxNorm: 855374 1 Tablet(s) PO QD 12/08/2012 Inactive azithromycin 250 mg tablet RxNorm: 784678 2 Tablet(s) PO QD ant ibiotic 10/30/2012 11/06/2012 Inactive Carafate 1 gram Tab RxNorm: 135041 1 Tablet(s) PO AC 05/27/201206/11 Inactive MetroCream 0.75 % Topical RxNorm: 759745 Application TOP BID 201106/11/2013 Inactive to face Protonix 40 mg Tab RxNorm: 195577 1 Tablet(s) PO QD 05/20/20122012 Inactive Dexilant 60 mg Capsule RxNorm: 953725 1 Capsule(s) PO QD 04/30/2012 0 05/26/2012 Inactive metformin ER 500 mg 24 hr Tab RxNorm: 381158 1 Tablet(s) PO QAM 10/29/2012 Inactive tobramycin 0.3 % Eye Drops RxNorm: 996940 1-2 Drop(s) O PH Q4H one to two drops in effected eye(s) every four hours for a maximum of 7 days. If no improvement in 1-2 days need eval 02/15/2012 02/19/2012 Inactive amoxicillin 875 mg tablet RxNorm: 641367 1 Tablet(s) PO BID 012 10/28/2011 Inactive Protonix 40 mg Tab RxNorm: 681608 1 Tablet(s) PO QD 04/11/20112010 Inactive cefuroxime axetil 500 mg Tab RxNorm: 821130 1 Tablet(s) PO BID 02/1303/22/2011 Inactive Ibuprofen 600 mg Tab RxNorm: 909842 1 Tablet(s) PO TID prn pain 06/24/2010 Inactive Levapak 750 mg Tablet RxNorm: 1 Tablet(s) PO QD 01/02/2010 0 Inactive Cortisporin otic (ear) RxNorm: 52396 otic (ear) No Start Date 019 Inactive Sprix 15.75 mg/spray Nasal [place] RxNorm: 5418770 1 [place] NASAL QID each nostril--for pain for 5 days No Start Date 01/07/2012 Inactive Children's Multivitamins with Iron chewable tablet RxNorm: 1 Tablet(s) PO QD No Start Date 08/17/2019 Inactive Promethazine-Codeine 6.25 mg-10 mg/5 mL Syrup RxNorm: 855388 1-2 Teaspoon(s) PO Q4H prn cough No Start Date 04/10/2011 Inactive metformin ER 500 mg 24 hr Tab RxNorm: 163858 1/2 Tablet(s) PO QAM N o Start Date 04/29/2012 Inactive metformin ER 500 mg 24 hr tablet,extended release RxNorm: 86 0975 1/2 Tablet(s) PO QD No Start Date 12/27/2012 Inactive Protonix 40 mg tablet,delayed release RxNorm: 817832 1 Tablet(s ) PO QD No Start Date 12/02/2013 Inactive Carafate 1 gram Tab RxNorm: 125884 1 Tablet(s) PO AC No Start Date Inactive Flonase 50 mcg/Actuation Nasal [place] RxNorm: 5070931 1 [place] JEROD AL BID No Start Date 04/10/2011 Inactive Protonix 40 mg tablet,delayed release RxNorm: 978700 1 Tablet(s ) PO BID No Start Date 12/29/2014 Inactive Protonix 40 mg Tab RxNorm: 842433 1 Tablet(s) PO QD No Start Date 04/2013 Inactive Dexilant 60 mg capsule, delayed release RxNorm: 245063 1 Capsul e(s) PO QD No Start Date 06/23/2017 Inactive Diflucan 150 mg tablet RxNorm: 402715 1 Tablet(s) PO Q7 2H Take one tablet today and repeat in 3 days if no improvement. No Start Date 10/03/2017 Inactive Protonix 40 mg tablet,delayed release RxNorm: 653406 1 Tablet(s ) PO QD No Start Date 04/26/2015 Inactive MetroCream 0.75 % Topical RxNorm: 664921 Application TOP BID No Sta rt Date 05/26/2012 Inactive to face Zithromax Z-Scar 250 mg Tab RxNorm: 589669 1 Tablet(s) PO QD No Star t Date 09/16/2011 Inactive as directed Protonix 40 mg tablet,delayed release RxNorm: 606290 1 Tablet(s ) PO BID No Start Date 09/17/2018 Inactive Medication Administered No Medication Administered data Immunizations No Immunization data Results Observation Observation Code Item Item Code Result Date S [facility] Location THYROID STIMULATING HORMONE 78644 TSH 1.360 uIU/ML 10/03/2015 Unknown COMPREHENSIVE METABOLIC 13669 AST 12 U/L 2014 Unknown COMPREHENSIVE METABOLIC 11334 ALT 9 IU/L 2014 Unknown COMPREHENSIVE METABOLIC 90148 BUN 10 MG/DL 2014 Unknown COMPREHENSIVE METABOLIC 72611 ALBUMIN 4.3 GM/DL 2014 Unknown COMPREHENSIVE METABOLIC 33391 CHLORIDE 104 MMOL/L 10/03 Unknown COMPREHENSIVE METABOLIC 81045 BILI TOT 0.3 MG/DL 2014 Unknown COMPREHENSIVE METABOLIC 93005 ALK PHOS 34 U/L 2014 Unknown COMPREHENSIVE METABOLIC 97736 SODIUM 137 MMOL/L 10/03 Unknown COMPREHENSIVE METABOLIC 83553 CREATININE 0.77 MG/DL 09/14 Unknown COMPREHENSIVE METABOLIC 47869 CALCIUM 9.6 MG/DL 2014 Unknown COMPREHENSIVE METABOLIC 36696 POTASSIUM 4.1 MMOL/L 10/03 Unknown COMPREHENSIVE METABOLIC 89284 PROT TOT 7.1 GM/DL 2014 Unknown COMPREHENSIVE METABOLIC 97669 Glucose 92 MG/DL 2014 Unknown COMPREHENSIVE METABOLIC 50658 BICARB 27 MMOL/L 2014 Unknown COMPREHENSIVE METABOLIC 09394 ANION GAP 6 MEQ/L 2014 Unknown LIPID GROUP 52114 HDL TEST 52 MG/DL 10/03/2015 Unknown LIPID GROUP 59952 TRIG 78 MG/DL 10/03/2015 Unknown LIPID GROUP 62034 TEST LDL 114 MG/DL 10/03/2015 Unknown LIPID GROUP 06883 CHOL 182 MG/DL 10/03/2015 Unknown LIPID GROUP 00137 RCHOL/HDL 3.50 RATIO 10/03/2015 Unknow n LIPID GROUP 07536 NON-HDL CH 130 MG/DL 10/03/2015 Unknow n GFR CALC 0624555 GFR AA >60 ML/MIN 10/03/2015 Unknown GFR CALC 0948218 GFR NON-AA >60 ML/MIN 10/03/2015 Unknown COMPLETE BLOOD COUNT 9346356 WBC 4.9 10e9/L 10/03/20 15 Unknown COMPLETE BLOOD COUNT 6338933 RBC 4.49 10e12/L 2014 Unknown COMPLETE BLOOD COUNT 0014687 HGB 11.3 g/dL 5 Unknown COMPLETE BLOOD COUNT 6991130 HCT DET 34.7 % 5 Unknown COMPLETE BLOOD COUNT 8881782 MCV 77.3 fL 5 Unknown COMPLETE BLOOD COUNT 4930819 MCH 25.2 pg 5 Unknown COMPLETE BLOOD COUNT 9146681 MCHC 32.6 g/dL 5 Unknown COMPLETE BLOOD COUNT 5997050 PLT 314 10e9/L 10/03/20 15 Unknown COMPLETE BLOOD COUNT 8062036 MPV 10.4 fL 5 Unknown COMPLETE BLOOD COUNT 0382473 ALEXX % 41.0 % 5 Unknown COMPLETE BLOOD COUNT 4423970 LY % 47.7 % 5 Unknown COMPLETE BLOOD COUNT 1936350 MON % 8.4 % 5 Unknown COMPLETE BLOOD COUNT 3590104 EOS % 2.7 % 5 Unknown COMPLETE BLOOD COUNT 6670342 BASO % 0.2 % 5 Unknown COMPLETE BLOOD COUNT 4265739 RDW 14.5 % 5 Unknown COMPLETE BLOOD COUNT 9707335 ABS ALEXX 2.01 10e9/L 015 Unknown COMPLETE BLOOD COUNT 5572114 ABS LYMPH 2.34 10e9/L 015 Unknown COMPLETE BLOOD COUNT 9784793 ABS MONO 0.41 10e9/L 015 Unknown COMPLETE BLOOD COUNT 3890447 ABS EOS 0.13 10e9/L 015 Unknown COMPLETE BLOOD COUNT 0070309 ABS BASO 0.01 10e9/L 015 Unknown COMPLETE BLOOD COUNT 7116563 RDW-SD 39.6 fL 5 Unknown FREE T4 39865 FREE T4 1.08 NG/DL 10/03/2015 Unknown GFR CALC 7101405 GFR AA >60 ML/MIN 12/25/2012 Unknown GFR CALC 9847870 GFR NON-AA >60 ML/MIN 12/25/2012 Unknown INSULIN SERUM 06840 INSULIN 5.0 mU/L 12/25/2012 Unkno wn BASIC METABOLIC PANEL 32613 Glucose 82 MG/DL 12/26/19 13 Unknown BASIC METABOLIC PANEL 22279 CREATININE 0.83 MG/DL 2012 Unknown BASIC METABOLIC PANEL 68193 BUN 9 MG/DL 12/26/19 13 Unknown BASIC METABOLIC PANEL 06215 SODIUM 139 MMOL/L 013 Unknown BASIC METABOLIC PANEL 88504 BICARB 26 MMOL/L 12/26/19 13 Unknown BASIC METABOLIC PANEL 69102 POTASSIUM 4.3 MMOL/L 013 Unknown BASIC METABOLIC PANEL 97942 ANION GAP 8 MEQ/L 12/26/19 13 Unknown BASIC METABOLIC PANEL 43214 CHLORIDE 105 MMOL/L 013 Unknown BASIC METABOLIC PANEL 18751 CALCIUM 9.6 MG/DL 12/26/19 13 Unknown GFR CALC 6668094 GFR AA >60 ML/MIN 08/27/2012 Unknown GFR CALC 9384827 GFR NON-AA >60 ML/MIN 08/27/2012 Unknown COMPREHENSIVE METABOLIC 00313 AST 16 U/L 2011 Unknown COMPREHENSIVE METABOLIC 32655 ALT 11 IU/L 2011 Unknown COMPREHENSIVE METABOLIC 96623 BUN 9 MG/DL 2011 Unknown COMPREHENSIVE METABOLIC 59122 ALBUMIN 4.1 GM/DL 2011 Unknown COMPREHENSIVE METABOLIC 29996 CHLORIDE 106 MMOL/L 08/27 Unknown COMPREHENSIVE METABOLIC 05942 BILI TOT 0.2 MG/DL 2011 Unknown COMPREHENSIVE METABOLIC 31633 ALK PHOS 35 U/L 2011 Unknown COMPREHENSIVE METABOLIC 68082 SODIUM 137 MMOL/L 08/27 Unknown COMPREHENSIVE METABOLIC 38968 CREATININE 0.80 MG/DL 08/14 Unknown COMPREHENSIVE METABOLIC 24096 CALCIUM 9.2 MG/DL 2011 Unknown COMPREHENSIVE METABOLIC 59769 POTASSIUM 4.5 MMOL/L 08/27 Unknown COMPREHENSIVE METABOLIC 53091 PROT TOT 6.9 GM/DL 2011 Unknown COMPREHENSIVE METABOLIC 87295 Glucose 92 MG/DL 2011 Unknown COMPREHENSIVE METABOLIC 20574 BICARB 25 MMOL/L 2011 Unknown COMPREHENSIVE METABOLIC 93495 ANION GAP 6 MEQ/L 2011 Unknown INSULIN SERUM 12055 INSULIN 10.6 mU/L 08/27/2012 Unkno wn GFR CALC 5692674 GFR AA >60 ML/MIN 04/29/2012 Unknown GFR CALC 0690306 GFR NON-AA >60 ML/MIN 04/29/2012 Unknown GLYCOSYLATED HEMOGLOBIN TEST 82103 A1C HPLC 72295-7 5.6 % 0 04/29/2012 Unknown COMPREHENSIVE METABOLIC 93978 AST 14 U/L 2011 Unknown COMPREHENSIVE METABOLIC 84601 ALT 9 IU/L 2011 Unknown COMPREHENSIVE METABOLIC 38153 BUN 11 MG/DL 2011 Unknown COMPREHENSIVE METABOLIC 04028 ALBUMIN 4.4 GM/DL 2011 Unknown COMPREHENSIVE METABOLIC 96842 CHLORIDE 105 MMOL/L 04/29 Unknown COMPREHENSIVE METABOLIC 57358 BILI TOT 0.2 MG/DL 2011 Unknown COMPREHENSIVE METABOLIC 53249 ALK PHOS 36 U/L 2011 Unknown COMPREHENSIVE METABOLIC 22689 SODIUM 139 MMOL/L 04/29 Unknown COMPREHENSIVE METABOLIC 67971 CREATININE 0.80 MG/DL 04/13 Unknown COMPREHENSIVE METABOLIC 97074 CALCIUM 9.5 MG/DL 2011 Unknown COMPREHENSIVE METABOLIC 82675 POTASSIUM 4.4 MMOL/L 04/29 Unknown COMPREHENSIVE METABOLIC 24036 PROT TOT 6.6 GM/DL 2011 Unknown COMPREHENSIVE METABOLIC 87492 Glucose 81 MG/DL 2011 Unknown COMPREHENSIVE METABOLIC 35488 BICARB 26 MMOL/L 2011 Unknown COMPREHENSIVE METABOLIC 29640 ANION GAP 8 MEQ/L 2011 Unknown INSULIN SERUM 76815 INSULIN 28.2 mU/L 12/26/2011 Unkno wn COMPREHENSIVE METABOLIC 84492 AST 19 U/L 2011 Unknown COMPREHENSIVE METABOLIC 39302 ALT 15 IU/L 2011 Unknown COMPREHENSIVE METABOLIC 87543 BUN 8 MG/DL 2011 Unknown COMPREHENSIVE METABOLIC 36137 ALBUMIN 4.6 GM/DL 2011 Unknown COMPREHENSIVE METABOLIC 95146 CHLORIDE 105 MMOL/L 12/24 Unknown COMPREHENSIVE METABOLIC 83306 BILI TOT 0.4 MG/DL 2011 Unknown COMPREHENSIVE METABOLIC 41989 ALK PHOS 38 U/L 2011 Unknown COMPREHENSIVE METABOLIC 86139 SODIUM 141 MMOL/L 12/24 Unknown COMPREHENSIVE METABOLIC 14528 CREATININE 0.74 MG/DL 12/12 Unknown COMPREHENSIVE METABOLIC 08099 CALCIUM 9.4 MG/DL 2011 Unknown COMPREHENSIVE METABOLIC 91287 POTASSIUM 4.1 MMOL/L 12/24 Unknown COMPREHENSIVE METABOLIC 37480 PROT TOT 7.6 GM/DL 2011 Unknown COMPREHENSIVE METABOLIC 61501 Glucose 53 MG/DL 2011 Unknown COMPREHENSIVE METABOLIC 42896 BICARB 25 MMOL/L 2011 Unknown COMPREHENSIVE METABOLIC 10297 ANION GAP 11 MEQ/L 2011 Unknown COMPLETE BLOOD COUNT 40852 WBC 3.7 10e9/L 12/25/19 12 Unknown COMPLETE BLOOD COUNT 20882 RBC 4.53 10e12/L 2011 Unknown COMPLETE BLOOD COUNT 31096 HGB 11.4 g/dL 2 Unknown COMPLETE BLOOD COUNT 73790 HCT DET 35.4 % 2 Unknown COMPLETE BLOOD COUNT 23662 MCV 78.1 fL 2 Unknown COMPLETE BLOOD COUNT 83004 MCH 25.2 pg 2 Unknown COMPLETE BLOOD COUNT 00683 MCHC 32.2 g/dL 2 Unknown COMPLETE BLOOD COUNT 22157 PLT 327 10e9/L 12/25/19 12 Unknown COMPLETE BLOOD COUNT 96724 MPV 10.9 fL 2 Unknown COMPLETE BLOOD COUNT 26762 ALEXX % 30.9 % 2 Unknown COMPLETE BLOOD COUNT 35460 LY % 57.0 % 2 Unknown COMPLETE BLOOD COUNT 55912 MON % 9.1 % 2 Unknown COMPLETE BLOOD COUNT 67464 EOS % 2.7 % 2 Unknown COMPLETE BLOOD COUNT 51159 BASO % 0.3 % 2 Unknown COMPLETE BLOOD COUNT 13376 RDW 14.0 % 2 Unknown COMPLETE BLOOD COUNT 11904 ABS ALEXX 1.14 10e9/L 012 Unknown COMPLETE BLOOD COUNT 13939 ABS LYMPH 2.11 10e9/L 012 Unknown COMPLETE BLOOD COUNT 33521 ABS MONO 0.34 10e9/L 012 Unknown COMPLETE BLOOD COUNT 95218 ABS EOS 0.10 10e9/L 012 Unknown COMPLETE BLOOD COUNT 83194 ABS BASO 0.01 10e9/L 012 Unknown COMPLETE BLOOD COUNT 32700 RDW-SD 39.0 fL 2 Unknown GFR CALC 3397870 GFR AA >60 ML/MIN 12/25/2011 Unknown GFR CALC 7135639 GFR NON-AA >60 ML/MIN 12/25/2011 Unknown AMYLASE 78647 AMYLASE 63 IU/L 05/31/2011 Unknown GFR CALC 5490151 GFR AA >60 ML/MIN 05/31/2011 Unknown GFR CALC 2986656 GFR NON-AA >60 ML/MIN 05/31/2011 Unknown COMPLETE BLOOD COUNT 48238 WBC 5.0 10e9/L 05/31/20 11 Unknown COMPLETE BLOOD COUNT 39217 RBC 4.56 10e12/L 2010 Unknown COMPLETE BLOOD COUNT 84823 HGB 11.6 g/dL 1 Unknown COMPLETE BLOOD COUNT 30307 HCT DET 35.1 % 1 Unknown COMPLETE BLOOD COUNT 01963 MCV 77.0 fL 1 Unknown COMPLETE BLOOD COUNT 40152 MCH 25.4 pg 1 Unknown COMPLETE BLOOD COUNT 95854 MCHC 33.0 g/dL 1 Unknown COMPLETE BLOOD COUNT 28375 PLT 313 10e9/L 05/31/20 11 Unknown COMPLETE BLOOD COUNT 90718 MPV 11.0 fL 1 Unknown COMPLETE BLOOD COUNT 47184 ALEXX % 37.7 % 1 Unknown COMPLETE BLOOD COUNT 35886 LY % 49.1 % 1 Unknown COMPLETE BLOOD COUNT 26108 MON % 10.4 % 1 Unknown COMPLETE BLOOD COUNT 51689 EOS % 2.6 % 1 Unknown COMPLETE BLOOD COUNT 33764 BASO % 0.2 % 1 Unknown COMPLETE BLOOD COUNT 37291 RDW 13.7 % 1 Unknown COMPLETE BLOOD COUNT 96215 ABS ALEXX 1.89 10e9/L 011 Unknown COMPLETE BLOOD COUNT 25510 ABS LYMPH 2.46 10e9/L 011 Unknown COMPLETE BLOOD COUNT 22831 ABS MONO 0.52 10e9/L 011 Unknown COMPLETE BLOOD COUNT 60779 ABS EOS 0.13 10e9/L 011 Unknown COMPLETE BLOOD COUNT 70099 ABS BASO 0.01 10e9/L 011 Unknown COMPLETE BLOOD COUNT 34571 RDW-SD 37.4 fL 1 Unknown COMPREHENSIVE METABOLIC 59875 AST 16 U/L 2010 Unknown COMPREHENSIVE METABOLIC 99459 ALT 10 IU/L 2010 Unknown COMPREHENSIVE METABOLIC 22613 BUN 9 MG/DL 2010 Unknown COMPREHENSIVE METABOLIC 72617 ALBUMIN 4.4 GM/DL 2010 Unknown COMPREHENSIVE METABOLIC 51723 CHLORIDE 102 MMOL/L 05/31 Unknown COMPREHENSIVE METABOLIC 79880 BILI TOT 0.3 MG/DL 2010 Unknown COMPREHENSIVE METABOLIC 16515 ALK PHOS 36 U/L 2010 Unknown COMPREHENSIVE METABOLIC 69283 SODIUM 138 MMOL/L 05/31 Unknown COMPREHENSIVE METABOLIC 60528 CREATININE 0.72 MG/DL 05/14 Unknown COMPREHENSIVE METABOLIC 15336 CALCIUM 9.6 MG/DL 2010 Unknown COMPREHENSIVE METABOLIC 97818 POTASSIUM 3.9 MMOL/L 05/31 Unknown COMPREHENSIVE METABOLIC 08261 PROT TOT 7.2 GM/DL 2010 Unknown COMPREHENSIVE METABOLIC 40687 Glucose 82 MG/DL 2010 Unknown COMPREHENSIVE METABOLIC 93819 BICARB 29 MMOL/L 2010 Unknown COMPREHENSIVE METABOLIC 25470 ANION GAP 7 MEQ/L 2010 Unknown LIPASE 05552 LIPASE 11 IU/L 05/31/2011 Unknown Procedures Procedure Codes Date URINE CULTURE/ COLONY COUNT CPT-4: 57188 05/25/2019 STREP A ASSAY W/OPTIC CPT-4: 78256 12/16/2018 URINE CULTURE/ COLONY COUNT CPT-4: 03203 12/02/2018 URINALYSIS NONAUTO W/O SCOPE CPT-4: 01979 10/21/2017 URINE CULTURE/ COLONY COUNT CPT-4: 71601 10/21/2017 STREP A ASSAY W/OPTIC CPT-4: 97114 11/22/2015 ROUTINE VENIPUNCTURE CPT-4: 07222 10/03/2015 ASSAY OF FREE THYROXINE CPT-4: 15535 10/03/2015 ASSAY THYROID STIM HORMONE CPT-4: 43704 10/03/2015 COMPREHEN METABOLIC PANEL CPT-4: 72068 10/03/2015 COMPLETE CBC W/AUTO DIFF WBC CPT-4: 15402 10/03/2015 LIPID PANEL CPT-4: 50451 10/03/2015 URINALYSIS NONAUTO W/O SCOPE CPT-4: 31544 08/01/2015 URINE CULTURE/ COLONY COUNT CPT-4: 08176 08/01/2015 STREP A ASSAY W/OPTIC CPT-4: 46730 12/25/2013 URINALYSIS NONAUTO W/O SCOPE CPT-4: 09229 12/17/2013 THER/PROPH/DIAG INJ SC/IM CPT-4: 70894 07/21/2013 METHYLPREDNISOLONE 40 MG INJ CPT-4: J1030 07/21/2013 TRIAMCINOLONE ACET INJ NOS CPT-4: J3301 07/21/2013 C WET [place] CPT-4: 72394 06/12/2013 ROUTINE VENIPUNCTURE CPT-4: 09218 12/25/2012 METABOLIC PANEL TOTAL CA CPT-4: 65012 12/25/2012 ASSAY OF INSULIN CPT-4: 09148 12/25/2012 ROUTINE VENIPUNCTURE CPT-4: 75014 08/27/2012 COMPREHEN METABOLIC PANEL CPT-4: 24480 08/27/2012 ASSAY OF INSULIN CPT-4: 78391 08/27/2012 ROUTINE VENIPUNCTURE CPT-4: 63870 04/29/2012 COMPREHEN METABOLIC PANEL CPT-4: 66563 04/29/2012 A1C GLYCOSYLATED HEMOGLOBIN TEST CPT-4: 54088 012 COMPLETE CBC W/AUTO DIFF WBC CPT-4: 51197 12/25/2011 COMPREHEN METABOLIC PANEL CPT-4: 04350 12/25/2011 ROUTINE VENIPUNCTURE CPT-4: 78278 12/25/2011 ASSAY OF INSULIN CPT-4: 97256 12/25/2011 THER/PROPH/DIAG INJ SC/IM CPT-4: 71802 09/17/2011 KETOROLAC TROMETHAMINE INJ CPT-4: J1885 09/17/2011 ROUTINE VENIPUNCTURE CPT-4: 34971 05/31/2011 COMPREHEN METABOLIC PANEL CPT-4: 20988 05/31/2011 COMPLETE CBC W/AUTO DIFF WBC CPT-4: 39205 05/31/2011 ASSAY OF LIPASE CPT-4: 70927 05/31/2011 ASSAY OF AMYLASE CPT-4: 89988 05/31/2011 URINALYSIS NONAUTO W/O SCOPE CPT-4: 93436 08/01/2010 URINE CULTURE/ COLONY COUNT CPT-4: 84646 08/01/2010 Vital Signs Date Vital 12/03/2019 Blood [...] 1: 136/86 Code: 8480-6 BMI: 33.5 Code: 14935-1 Heart Rate 1: 92 bpm Height: 5'2" Respiratory Rate: 20 bpm Temperature: 37 .1 (C) / 98.8 (F) Weight: 180 lbs 08/18/2018 Blood Pressure 1: 136/78 Code: 8480-6 Heart Rate 1: 91 bpm Respiratory Rate: 18 bpm SpO2: 99% Temperature: 36.4 (C) / 97.5 (F) We ight: 183 lbs 06/24/2017 Blood Pressure 1: 140/80 Code: 8480-6 BMI: 34.2 Code: 45086-6 Heart Rate 1: 76 bpm Height: 5'2" Respiratory Rate: 20 bpm Temperature: 36 .7 (C) / 98.0 (F) Weight: 184 lbs 04/11/2017 Blood Pressure 1: 132/86 Code: 8480-6 Heart Rate 1: 84 bpm Respiratory Rate: 20 bpm SpO2: 97% Temperature: 36.6 (C) / 97.8 (F) We ight: 181 lbs 01/18/2017 Blood Pressure 1: 122/80 Code: 8480-6 BMI: 31.6 Code: 01145-8 Heart Rate 1: 76 bpm Height: 5'2" Respiratory Rate: 20 bpm SpO2: 96% Tempera ture: 36.7 (C) / 98.1 (F) Weight: 170 lbs 11/26/2016 Blood Pressure 1: 128/80 Code: 8480-6 BMI: 31.0 Code: 28870-7 Heart Rate 1: 84 bpm Height: 5'2" Respiratory Rate: 20 bpm SpO2: 98% Tempera ture: 36.8 (C) / 98.2 (F) Weight: 167 lbs 10/25/2016 Blood Pressure 1: 118/76 Code: 8480-6 BMI: 30.9 Code: 20193-1 Heart Rate 1: 72 bpm Height: 5'2" Weight: 166 lbs 09/21/2016 Blood Pressure 1: 124/70 Code: 8480-6 BMI: 31.0 Code: 69193-2 Heart Rate 1: 80 bpm Height: 5'2" Weight: 167 lbs 08/23/2016 Blood Pressure 1: 138/82 Code: 8480-6 BMI: 31.6 Code: 25434-6 Heart Rate 1: 64 bpm Height: 5'2" [...] 1: 140/78 Code: 8480-6 BMI: 33.5 Code: 17314-3 Heart Rate 1: 82 bpm Height: 5'2" Respiratory Rate: 22 bpm SpO2: 97% Tempera ture: 36.3 (C) / 97.4 (F) Weight: 180 lbs 11/22/2015 Blood Pressure 1: 110/68 Code: 8480-6 BMI: 33.1 Code: 93441-7 Heart Rate 1: 80 bpm Height: 5'2" Respiratory Rate: 20 bpm Temperature: 36 .8 (C) / 98.3 (F) Weight: 178 lbs 06/28/2015 Blood Pressure 1: 124/70 Code: 8480-6 BMI: 31.0 Code: 46562-5 Heart Rate 1: 80 bpm Height: 5'2" Respiratory Rate: 20 bpm Temperature: 36 .8 (C) / 98.3 (F) Weight: 167 lbs 05/02/2015 Blood Pressure 1: 122/76 Code: 8480-6 BMI: 31.4 Code: 24244-3 Heart Rate 1: 78 bpm Height: 5'2" Respiratory Rate: 20 bpm Temperature: 36 .3 (C) / 97.4 (F) Weight: 169 lbs 03/29/2015 Blood Pressure 1: 126/78 Code: 8480-6 BMI: 30.9 Code: 64058-5 Heart Rate 1: 88 bpm Height: 5'2" Respiratory Rate: 20 bpm Temperature: 37 .1 (C) / 98.7 (F) Weight: 166 lbs 02/15/2015 Blood Pressure 1: 126/78 Code: 8480-6 BMI: 30.5 Code: 01097-0 Heart Rate 1: 76 bpm Height: 5'2" Respiratory Rate: 20 bpm Temperature: 36 .6 (C) / 97.8 (F) Weight: 164 lbs 12/30/2014 Blood Pressure 1: 118/84 Code: 8480-6 BMI: 30.1 Code: 09284-4 Heart Rate 1: 84 bpm Height: 5'2" Respiratory Rate: 20 bpm Temperature: 37 .0 (C) / 98.6 (F) Weight: 162 lbs 09/30/2014 Blood Pressure 1: 132/68 Code: 8480-6 BMI: 30.1 Code: 09421-4 Heart Rate 1: 84 bpm Height: 5'2" Respiratory Rate: 22 bpm Temperature: 36 .5 (C) / 97.7 (F) Weight: 162 lbs 07/19/2014 Blood Pressure 1: 126/78 Code: 8480-6 BMI: 29.7 Code: 68999-9 Heart Rate 1: 72 bpm Height: 5'2" Respiratory Rate: 20 bpm Temperature: 36 .8 (C) / 98.2 (F) Weight: 160 lbs 06/01/2014 Blood Pressure 1: 132/86 Code: 8480-6 BMI: 29.6 Code: 43576-2 Heart Rate 1: 72 bpm Height: 5'2" [...] 1: 122/80 Code: 8480-6 BMI: 29.6 Code: 08548-0 Heart Rate 1: 80 bpm Height: 5'2" Respiratory Rate: 20 bpm Temperature: 36 .8 (C) / 98.3 (F) Weight: 159 lbs 08/14/2013 Blood Pressure 1: 138/82 Code: 8480-6 BMI: 27.5 Code: 62487-8 Heart Rate 1: 66 bpm Height: 5'2" Respiratory Rate: 20 bpm Temperature: 36 .5 (C) / 97.7 (F) Weight: 148 lbs 08/03/2013 Blood Pressure 1: 126/82 Code: 8480-6 BMI: 29.1 Code: 18912-6 Heart Rate 1: 72 bpm Height: 5'1" Respiratory Rate: 20 bpm Temperature: 36 .6 (C) / 97.8 (F) Weight: 154 lbs 07/21/2013 Blood Pressure 1: 124/70 Code: 8480-6 BMI: 28.3 Code: 27804-7 Heart Rate 1: 64 bpm Height: 5'1" Respiratory Rate: 22 bpm Temperature: 36 .5 (C) / 97.7 (F) Weight: 150 lbs 06/12/2013 Blood Pressure 1: 124/78 Code: 8480-6 BMI: 28.6 Code: 31360-8 Heart Rate 1: 88 bpm Height: 5'2" Respiratory Rate: 20 bpm Temperature: 36 .9 (C) / 98.4 (F) Weight: 154 lbs 12/25/2012 Blood Pressure 1: 128/84 Code: 8480-6 BMI: 27.0 Code: 19438-5 Heart Rate 1: 76 bpm Height: 5'2" Respiratory Rate: 20 bpm Temperature: 36 .9 (C) / 98.4 (F) Weight: 145 lbs 10/30/2012 Blood Pressure 1: 122/68 Code: 8480-6 BMI: 28.8 Code: 53169-5 Heart Rate 1: 60 bpm Height: 5'2" Temperature: 36.9 (C) / 98.5 (F) Weight: 155 lbs 08/28/2012 Blood Pressure 1: 112/80 Code: 8480-6 BMI: 29.7 Code: 06460-3 Heart Rate 1: 72 bpm Height: 5'2" Respiratory Rate: 20 bpm Temperature: 36 .9 (C) / 98.5 (F) Weight: 160 lbs 05/27/2012 Blood Pressure 1: 128/80 Code: 8480-6 BMI: 28.4 Code: 71053-7 Heart Rate 1: 72 bpm Height: 5'2" Respiratory Rate: 20 bpm Temperature: 36 .8 (C) / 98.2 (F) Weight: 153 lbs 04/30/2012 Blood Pressure 1: 116/70 Code: 8480-6 BMI: 28.8 Code: 04945-1 Heart Rate 1: 84 bpm Height: 5'2" Respiratory Rate: 20 bpm Temperature: 36 .7 (C) / 98.1 (F) Weight: 155 lbs 02/18/2012 Blood Pressure 1: 118/64 Code: 8480-6 BMI: 28.4 Code: 53398-6 Heart Rate 1: 68 bpm Height: 5'2" Temperature: 36.3 (C) / 97.4 (F) Weight: 153 lbs 01/08/2012 Blood Pressure 1: 132/80 Code: 8480-6 BMI: 28.8 Code: 47182-6 Heart Rate 1: 76 bpm Height: 5'2" Respiratory Rate: 20 bpm Temperature: 36 .7 (C) / 98.1 (F) Weight: 155 lbs 10/19/2011 Blood Pressure 1: 102/72 Code: 8480-6 BMI: 27.9 Code: 04096-4 Heart Rate 1: 70 bpm Height: 5'2" Temperature: 36.9 (C) / 98.5 (F) Weight: 150 lbs 09/17/2011 Blood Pressure 1: 126/72 Code: 8480-6 BMI: 28.3 Code: 24698-0 Heart Rate 1: 84 bpm Height: 5'2" Respiratory Rate: 20 bpm Temperature: 36 .7 (C) / 98.1 (F) Weight: 152 lbs 07/05/2011 Blood Pressure 1: 102/68 Code: 8480-6 Heart Rate 1: 88 bpm Temperature: 36.7 (C) / 98.1 (F) Weight: 145 lbs 05/31/2011 Blood Pressure 1: 126/82 Code: 8480-6 BMI: 27.3 Code: 87631-8 Heart Rate 1: 80 bpm Height: 5'2" [...] Weight: 130 lbs 01/02/2010 BMI: 25.7 Code: 21259-0 Heart Rate 1: 84 bpm Height: 5 [...] metformin sore throat 10/19/2011 follow up 09/17/2011 [facility]--still on Omnicef sore throat 07/05/2011 gastroesophageal reflux [...] phlegm Encounters Encounter Performer Location Codes Date ([id number]) OFFICE/OUTPATIENT VISIT EST Diagnosis: Shingles[ICD10: B02.9] Almaz Carrasco [facility] CPT-4: 27318 12/03/2019 ([id number]) OFFICE/OUTPATIENT VISIT EST Diagnosis: Nasopharyngitis[ICD10: J00] Nikole WU S. O DINA [facility] CPT-4: 87018 08/18/2019 ([id number]) OFFICE/OUTPATIENT VISIT EST Diagnosis: Low back pain[ICD10: M54.5] Diagnosis: Personal history of urinary (tract) infections[ICD10: Z87.440] Nikole RYDERER [facility] CPT-4: 38315 05/25/2019 ([id number]) OFFICE/OUTPATIENT VISIT EST Diagnosis: Palpitations[ICD10: R00.2] Almaz Price OR JOJO [facility] CPT-4: 13655 05/06/2019 OFFICE/OUTPATIENT VISIT EST Diagnosis: Other infective otitis externa, right ear[ICD10: H60.391] Diagnosis: Acute serous otitis media, recurrent, right ear[ICD10: H65.04] Elisha ENRIQUEZ DO [facility] CPT-4: 94184 12/16/2018 ([id number]) NURSE/OUTPATIENT VISIT EST Diagnosis: Dysuria[ICD10: R30.0] Almaz ENRIQUEZ DO [facility] CPT-4: 15324 12/02/2018 ([id number]) OFFICE/OUTPATIENT VISIT EST Diagnosis: Palpitations[ICD10: R00.2] Diagnosis: Abnormal results of thyroid function studies[ICD10: R94.6] Almaz ENRIQUEZ DO [facility] CPT-4: 73092 09/09/2018 ([id number]) OFFICE/OUTPATIENT VISIT EST Diagnosis: Pain in right knee[ICD10: M25.561] Almaz ENRIQUEZ DO [facility] CPT-4: 61700 08/28/2018 ([id number]) OFFICE/OUTPATIENT VISIT EST Diagnosis: Gastro-esophageal reflux disease without esophagitis[ICD10: K21.9] Almaz ENRIQUEZ DO [facility] CPT-4: 20440 08/18/2018 ([id number]) OFFICE/OUTPATIENT VISIT EST Diagnosis: Other polyuria[ICD10: R35.8] Almaz ENRIQUEZ DO [facility] CPT-4: 29737 10/21/2017 ([id number]) OFFICE/OUTPATIENT VISIT EST Diagnosis: Otalgia, left ear[ICD10: H92.02] Diagnosis: Left temporomandibular joint disorder, unspecified[ICD10: M26.602] Almaz ENRIQUEZ DO [facility] CPT-4: 82147 06/24/2017 OFFICE/OUTPATIENT VISIT EST Diagnosis: Insect bite (nonvenomous) of right upper arm, sequela[ICD10: S40.861S] Almaz ENRIQUEZ DO [facility] CPT-4: 26050 04/11/2017 ([id number]) OFFICE/OUTPATIENT VISIT EST Diagnosis: Other seasonal allergic rhinitis[ICD10: J30.2] Aracelis Mercado ALMAZ ENRIQUEZ [facility] CPT-4: 12832 01/18/2017 ([id number]) OFFICE/OUTPATIENT VISIT EST Diagnosis: Abnormal weight gain[ICD10: R63.5] Diagnosis: Tinea corporis[ICD10: B35.4] Almaz Zoe MAGANALINE Dee ENRIQUEZ DO [facility] CPT-4: 47841 11/26/2016 ([id number]) OFFICE/OUTPATIENT VISIT EST Diagnosis: Abnormal weight gain[ICD10: R63.5] Almaz KATHLEEN Dee ENRIQUEZ DO [facility] CPT-4: 66056 08/23/2016 ([id number]) OFFICE/OUTPATIENT VISIT EST Diagnosis: Pain in left knee[ICD10: M25.562] Aracelis Rogelio Villafana Dee ENRIQUEZ DO [facility] CPT-4: 07169 06/14/2016 OFFICE/OUTPATIENT VISIT EST Diagnosis: Other specified disorders of Eustachian tube, left ear[ICD10: H69.82] Radha ENRIQUEZ DO [facility] CPT-4: 76787 04/19/2016 ([id number]) OFFICE/OUTPATIENT VISIT EST Diagnosis: Other specified disorders of Eustachian tube, bilateral[ICD10: H69.83] Diagnosis: Otitis media, unspecified, right ear[ICD10: H66.91] Aracelis MAGANALINE Dee ENRIQUEZ DO [facility] CPT-4: 51862 04/10/2016 OFFICE/OUTPATIENT VISIT EST Diagnosis: Acute pharyngitis, unspecified[ICD10: J02.9] Radha MAGANALINE Dee ENRIQUEZ DO [facility] CPT-4: 35759 11/22/2015 ([id number]) OFFICE/OUTPATIENT VISIT EST Diagnosis: Encounter for general adult medical examination without abnormal findings[ICD10: Z00.00] Almaz Zoe MAGANALINE Dee ENRIQUEZ DO [facility] CPT-4: 05048 10/03/2015 ([id number]) OFFICE/OUTPATIENT VISIT EST Diagnosis: Myalgia[ICD10: M79.1] Diagnosis: Unspecified abdominal pain[ICD10: R10.9] Almaz Nathanpreeti WU BlancheKaz ZOE JONES [facility] CPT-4: 47512 08/01/2015 ([id number]) OFFICE/OUTPATIENT VISIT EST Diagnosis: Proctalgia[ICD9: 569.42] Diagnosis: Rectal bleeding[ICD9: 569.3] Almaz ENRIQUEZ [facility] CPT-4: 69722 06/28/2015 ([id number]) OFFICE/OUTPATIENT VISIT EST Diagnosis: Right calf pain[ICD9: 729.5] Za Jenn ALMAZ BlancheKaz ZOE JONES [facility] CPT-4: 87639 05/02/2015 ([id number]) OFFICE/OUTPATIENT VISIT EST Diagnosis: Flank pain[ICD9: 789.00] Diagnosis: MALAISE AND FATIGUE[ICD9: 780.79] Diagnosis: ABNORMAL WEIGHT GAIN[ICD9: 783.1] Almaz Nathanpreeti CALLAWAY Ledy ManciaKaz ZOE [facility] CPT-4: 70384 03/29/2015 ([id number]) OFFICE/OUTPATIENT VISIT EST Diagnosis: ALLERGIC RHINITIS[ICD9: 477.9] Almaz Nathanpreeti ALMAZ Blanche Kaz ZOE [facility] CPT-4: 95246 02/15/2015 ([id number]) OFFICE/OUTPATIENT VISIT EST Diagnosis: GERD[ICD9: 530.81] Almaz MAGANALINE BlancheKaz ZOE [facility] CPT-4: 86069 12/30/2014 ([id number]) OFFICE/OUTPATIENT VISIT EST Diagnosis: Tenosynovitis, de Quervain[ICD9: 727.04] Diagnosis: Paresthesia of hand[ICD9: 782.0] Almaz Nathanpreeti WU BlancheKaz ZOE [facility] CPT-4: 91505 09/30/2014 ([id number]) OFFICE/OUTPATIENT VISIT EST Diagnosis: ABDOMINAL PAIN[ICD9: 789.00] Diagnosis: GERD[ICD9: 530.81] Diagnosis: TREMOR NEC[ICD9: 333.1] Almazliv MAGANALINE BlancheKaz BRITNI GRAHAM [facility] CPT-4: 38885 07/19/2014 ([id number]) OFFICE/OUTPATIENT VISIT EST Diagnosis: PAIN, LOWER BACK[ICD9: 724.2] Diagnosis: SPASM OF MUSCLE[ICD9: 728.85] Almaz CALDERAQUELINE BlancheKaz ZOE [facility] CPT-4: 67052 06/01/2014 OFFICE/OUTPATIENT VISIT EST Diagnosis: TONSILLITIS, ACUTE[ICD9: 463] Diagnosis: STREPTOCOCCAL INFECTION GROUP A[ICD9: 041.01] Radha ENRIQUEZ [facility] CPT-4: 55529 12/25/2013 OFFICE/OUTPATIENT VISIT EST Diagnosis: DYSURIA[ICD9: 788.1] Radha ENRIQUEZ [facility] CPT-4: 03557 12/17/2013 ([id number]) OFFICE/OUTPATIENT VISIT EST Diagnosis: BRONCHITIS, ACUTE[ICD9: 466.0] Almaz ENRIQUEZ [facility] CPT-4: 34613 09/15/2013 OFFICE/OUTPATIENT VISIT EST Diagnosis: URI, ACUTE[ICD9: 465.9] Za Barajas ALMAZ RYDER [facility] CPT-4: 79878 08/14/2013 ([id number]) OFFICE/OUTPATIENT VISIT EST Diagnosis: PALPITATIONS[ICD9: 785.1] Almaz OWEN [facility] CPT-4: 23810 08/03/2013 OFFICE/OUTPATIENT VISIT EST Diagnosis: SINUSITIS, ACUTE[ICD9: 461.9] Diagnosis: Dysfunction of left Eustachian tube[ICD9: 381.81] Radha ENRIQUEZ [facility] CPT-4: 65318 07/21/2013 OFFICE/OUTPATIENT VISIT EST Diagnosis: Vaginal disorder[ICD9: 623.9] Za Barajas [facility]: 57973 06/12/2013 OFFICE/OUTPATIENT VISIT EST Diagnosis: HYPOGLYCEMIA NEC[ICD9: 251.1] Diagnosis: GERD[ICD9: 530.81] Almaz ENRIQUEZ [facility] CPT-4: 52220 12/25/2012 OFFICE/OUTPATIENT VISIT EST Diagnosis: COUGH[ICD9: 786.2] Diagnosis: PHARYNGITIS, ACUTE[ICD9: 462] Almaz ENRIQUEZ [facility] CPT-4: 83455 10/30/2012 OFFICE/OUTPATIENT VISIT EST Diagnosis: HYPOGLYCEMIA[ICD9: 251.2] Diagnosis: GERD[ICD9: 530.81] Diagnosis: Fibroid tumor[ICD9: 218.9] Almaz DIAZ JOJO [facility] CPT-4: 16588 08/28/2012 ([id number]) OFFICE/OUTPATIENT VISIT EST Diagnosis: Hyperglycemia[ICD9: 790.29] Almaz Mancia. O RENDER [facility] CPT-4: 99206 08/27/2012 ([id number]) OFFICE/OUTPATIENT VISIT EST Diagnosis: GERD[ICD9: 530.81] Almaz ENRIQUEZ [facility] CPT-4: 84734 05/27/2012 ([id number]) OFFICE/OUTPATIENT VISIT EST Diagnosis: HYPOGLYCEMIA NEC[ICD9: 251.1] Diagnosis: GERD[ICD9: 530.81] [facility]: 12058 04/30/2012 ([id number]) OFFICE/OUTPATIENT VISIT EST Diagnosis: HYPOGLYCEMIA[ICD9: 251.2] Almaz NEWBERRY NDER [facility] CPT-4: 78022 04/29/2012 OFFICE/OUTPATIENT VISIT EST Diagnosis: CONJUNCTIVITIS NOS[ICD9: 372.30] Almaz ENRIQUEZ [facility] CPT-4: 76079 02/18/2012 OFFICE/OUTPATIENT VISIT EST Diagnosis: Hyperinsulinemia[ICD9: 251.1] Diagnosis: HYPOGLYCEMIA[ICD9: 251.2] Almaz NEWBERRY NDER [facility] CPT-4: 61541 01/08/2012 ([id number]) OFFICE/OUTPATIENT VISIT EST Diagnosis: Leg cramps[ICD9: 729.82] Almaz NEWBERRYN PAULIE [facility] CPT-4: 85743 12/25/2011 OFFICE/OUTPATIENT VISIT EST Diagnosis: PHARYNGITIS, ACUTE[ICD9: 462] Almaz NEWBERRYNDER [facility] CPT-4: 46962 10/19/2011 OFFICE/OUTPATIENT VISIT EST Diagnosis: Pyelonephritis[ICD9: 590.80] Diagnosis: Flank pain[ICD9: 789.00] Diagnosis: Recurrent UTI[ICD9: 599.0] Diagnosis: Thoracic back pain[ICD9: 724.1] Almaz ENRIQUEZ DO [facility] CPT-4: 33194 09/17/2011 OFFICE/OUTPATIENT VISIT EST Diagnosis: PHARYNGITIS, ACUTE[ICD9: 462] Almaz ENRIQUEZ DO [facility] CPT-4: 25814 07/05/2011 OFFICE/OUTPATIENT VISIT EST Diagnosis: GERD[ICD9: 530.81] Diagnosis: ABDOMINAL PAIN[ICD9: 789.00] Almaz ENRIQUEZ DO [facility] CPT-4: 29273 05/31/2011 OFFICE/OUTPATIENT VISIT EST Almaz NEWBERRY NDER [facility] CPT- 4: 34752 04/11/2011 ([id number]) OFFICE/OUTPATIENT VISIT EST Almaz LAFLEUR SKaz NEWBERRYNDER DO [facility] CPT-4: 56055 03/13/2011 ([id number]) OFFICE/OUTPATIENT VISIT EST Almaz RYDERER DO [facility] CPT-4: 05613 11/30/2010 ([id number]) OFFICE/OUTPATIENT VISIT, EST Almaz RYDERER [facility] CPT-4: 93120 11/02/2010 ([id number]) OFFICE/OUTPATIENT VISIT, EST Lucy Demetris ALMAZ NEWBERRYNDER [facility] CPT-4: 28184 07/25/2010 ([id number]) OFFICE/OUTPATIENT VISIT, EST Almaz ENRIQUEZ DO [facility] CPT-4: 30132 01/02/2010 Plan of Care Planned Activity Notes Codes Status Date Visit Diagnosis Plan: Shingles Discussion: Finish all Bactrim and Acyclovir Notify if any worsening/return Looked up wound culture results and are negative ICD-9 : 053.9 ICD-10 : B02.9 12/03/2019 Visit Diagnosis Plan: Nasopharyngitis Discussion: disc ussed that most likely viral illness. saline nasal spray given to patient with instructions to use prn congestion. if symptoms worsen or continued past 10 days, call clinic. tylenol/i buprofen prn pain or fever. ICD-9 : 460 ICD-10 : J00 08/18/2019 Appointment: Nikole Gabriel [address] [place] [address] ACUTE ILLNESS 08/18/2019 Visit Diagnosis Plan: Low back pain Discussion: urine dip neg. will send for culture. bactrim bid for 7 days to cover for infection due to patient's hx. instructed to push water. call office if no improvement tomorrow or to ED with worsening. ICD-9 : 724.2 ICD-10 : M54.5 05/25/2019 Appointment: Nikole Gabriel [address] [place] [address] ACUTE ILLNESS 05/25/2019 Visit Diagnosis Plan: Palpitations Discussion: Check C BC, iron, ferritin, TSH, Free T4, CMP Check 24hr holter Denies any energy drinks, supplements, etc. To ER if come on and persist with any associated dyspnea, dizziness, CP, etc. ICD-9 : 785.1 ICD-10 : R00.2 05/06/2019 Appointment: Almaz Enriquez WPtel: [facility] ACUTE ILLNESS 05/06/2019 Visit Diagnosis Plan: Acute [...] ICD-10 : H60.391 12/16/2018 Appointment: Elisha Leiva [address] [place] [address] ACUTE ILLNESS 12/16/2018 Patient Education: amoxicillin- OptimizeRX Coupon [id number] [email or web address]/samplemd/resources/getResource/61/[email or web address] Completed 12/16/2018 Appointment: Almaz Enriquez WPtel: [address] [place] [address] 12/02/2018 Visit Diagnosis Plan: Palpitations Discussion: Discuss [...] : R94.6 09/09/2018 Appointment: Almaz Enriquez WPtel: [address] [place] [address] Hospital Follow Up 09/09/2018 Visit Diagnosis Plan: Pain in right knee Discussion: R dung to Dr. Pako Lowry and topical voltaren ICD-9 : 719.46 ICD-10 : M25.561 08/28/2018 Appointment: Almaz Enriquez WPtel: [address] [place] [address] ACUTE ILLNESS 08/28/2018 Care Plan: Referral Order SNOMED-CT : 30 [id number] Pending 08/28/2018 Visit Diagnosis Plan: Gastro-esophageal reflux disease without esophagitis Discussion: Left lower chest pain appears to be from GI etiology so will resume protonix 40mg po BID for next week and see if resolves, if improved then can go to protonix 40mg po daily ICD-9 : 530.81 ICD-10 : K21.9 08/18/2018 Appointment: Nikole Gabriel [address] [place] [address] ACUTE ILLNESS 08/18/2018 Patient Education: Patient Medication Summary Completed 05/13/2018 Care Plan: MAMMOGRAM SCREENING LOINC : 2 6347-5 Pending 05/13/2018 Appointment: Almaz Enriquez WPtel: [address] [place] [address] 10/21/2017 Patient Education: Patient Medication Summary Completed [...] : H92.02 06/24/2017 Appointment: Almaz Enriquez WPtel: [address] [place] [address] ACUTE ILLNESS 06/24/2017 Patient Education: Patient Medication Summary Completed 06/24/2017 Patient Education: Patient Medication Summary Completed 05/14/2017 Visit Diagnosis Plan: Insect bite (nonvenomous) of rig ht upper arm, sequela Discussion: Finish all abx Add Zyrtec 10mg daily for 10 days ICD-9 : 906.2 ICD-10 : S40.861S 04/11/2017 Appointment: Almaz Enriquez WPtel: [address] [place], [place] [phone] ER Follow UP 04/11/2017 Patient Education: Patient Medication Summary Completed 04/11/2017 Visit Diagnosis Plan: Other seasonal allergic rhinitis Discussion: Add benadryl at bedtime Nasal rinses, steroid nasal spray Vicks and humidifier Monitor for signs of infection Follow up PRN ICD-9 : 477.9 ICD-10 : J30.2 01/18/2017 Appointment: Aracelis Mercado [address] [place] [address] ACUTE ILLNESS 01/18/2017 Patient Education: Patient Medication Summary Completed 01/18/2017 Visit Diagnosis Plan: Abnormal weight gain Discussion: Long discussion about diet/exercise/lifestyle change--3month trial ICD-9 : 783.1 ICD-10 : R63.5 11/26/2016 Visit Diagnosis Plan: Tinea corporis Discussion: Ketoc onazole BID for 2 weeks Notify if persist or worsens ICD-9 : 110.5 ICD-10 : B35.4 11/26/2016 Appointment: Almaz Enriquez WPtel: [address] [place], [place] [address] 11/22 confirm~sl FOLLOW UP 11/26/2016 Patient Education: Patient Medication Summary Completed 11/26/2016 Appointment: Almaz Enriquez WPtel: [address] [place] [address] WEIGHT CHECK 10/25/2016 Patient Education: Patient Medication Summary Completed 10/25/2016 Appointment: Almaz Enriquez WPtel: [address] [place] [address] BP CHECK 09/21/2016 Patient Education: Patient Medication Summary Completed 09/21/2016 Visit Plan: Is working out routinely Bulmaro l do phenteramine 37.5mg Weight and BP check next 2 months then fwup in 3mos 08/23/2016 Appointment: Almaz Enriquez WPtel: [address] [place] [address] 08/22 confirmed~sl FOLLOW UP 08/23/2016 Patient Education: Patient Medication Summary Completed 08/23/2016 Patient Education: Patient Medication Summary Completed 06/22/2016 Care Plan: X-RAY EXAM OF KNEE 1 [place] 2 [place] : 32233-6 Pending 06/22/2016 Visit Plan: RICE and rx as above Reduce strain on knee OTC pain relievers if needed Knee sleeve Call in 7-10 days if not improving for xray orders 06/14/2016 Appointment: Aracelis Mercado [address] [place] [address] ACUTE ILLNESS 06/14/2016 Patient Education: Patient Medication Summary Completed 06/14/2016 Referral: Jatinder Ambrose WPtel: [address] Referral Appointment Requested 05/09/2016 Visit Plan: Attempted to use ET popper w ith minimal relief Fluticasone nasal spray - 2 sprays each nostril one time daily 04/19/2016 Appointment: Radha Botello WPtel: [address] [place] [address] 04/18 confirmed~sl ACUTE ILLNESS 04/19/2016 Patient Education: [...] Follow up PRN 04/10/2016 Appointment: Aracelis Mercado [address] [place] [address] ACUTE ILLNESS 04/10/2016 Patient Education: Patient Medication Summary Completed 04/10/2016 Visit Plan: Strep Screen - negative Geronimo mmending warm saline gargles and notify if symptoms worsen 11/22/2015 Appointment: Radha Botello WPtel: [address] [place] [address] ACUTE ILLNESS 11/22/2015 Patient Education: Patient Medication Summary Completed 11/22/2015 Appointment: Almaz Enriquez WPtel: [address] [place] [address] 10/03/2015 Patient Education: Patient Medication Summary Completed 10/03/2015 Appointment: Almaz Enriquez WPtel: [address] [place] [address] 08/01/2015 Patient Education: Patient Medication Summary Completed 08/01/2015 Visit Plan: Anusol HC supp for 2weeks Al ign daily for 2weeks If resolves then will observe as came on after recent GI bug but if persists or comes back will need colonoscopy 06/28/2015 Appointment: Almaz Enriquez WPtel: [address] [place] [address] ACUTE ILLNESS 06/28/2015 Patient Education: Patient Medication Summary Completed 06/28/2015 Appointment: Almaz Enriquez WPtel: [address] [place], [place] [phone] 05/27 vm cn FOLLOW UP 05/30/2015 Appointment: Almaz Enriquez WPtel: [address] [place], [place] [phone] ACUTE ILLNESS 05/16/2015 Visit Plan: Venous dopple of right leg o rdered (tomorrow 10am) Recommended daily EC ASA until results 05/02/2015 Appointment: Za Barajas WPtel: [address] [place], [place] [phone] ACUTE ILLNESS 05/02/2015 Patient Education: Patient Medication Summary Completed 05/02/2015 Visit Plan: Contrave starter pack Fwup i n 2mos 03/29/2015 Appointment: Almaz Enriquez WPtel: [address] [place] [address] ER Follow UP 03/29/2015 Patient Education: Patient Medication Summary Completed 03/29/2015 Visit Plan: Start Loratadine 10mg po BID Add flonase q HS 02/15/2015 Appointment: Almaz Enriquez WPtel: [address] [place] [address] ACUTE ILLNESS 02/15/2015 Patient Education: Patient Medication Summary Completed 02/15/2015 Visit Plan: Continue protonix and carafa te See GI for update EGD vs pH probe/etc. Discussed musculoskeletal etiology as well as patient does have some chest wall pain and thoracic pain 12/30/2014 Appointment: Almaz Enriquez WPtel: [address] [place], [place] [phone] ER Follow UP 12/30/2014 Patient Education: Patient Medication Summary Completed 12/30/2014 Ref[facility]: [id number] office verifies ins they s chedule with patient directly 10/20/14 Per Patient - she cannot go to this consult because due to her work comp case she must see their preferred drKaz Perdomo 10/12/2014 Appointment: Almaz Enriquez WPtel: [address] [place], [place] [phone] ER Follow UP 09/30/2014 Patient Education: Patient Medication Summary Completed 09/30/2014 Visit Plan: List reglan as an allergy--t remor of thumb has improved since stopping Add carafate to protonix for next 2-4weeks If resolves will observe, if not will need updated EGD 07/19/2014 Appointment: Almaz Enriquez WPtel: [address] [place], [place] [phone] 07/16 also left message that payment is due E R Follow UP 07/19/2014 Patient Education: Patient Medication Summary Completed 07/19/2014 Visit Plan: Stretches, moist heat, topic al biofreeze Amrix 15mg q PM Celebrex 200mg po BID 06/01/2014 Appointment: Almaz Enriquez WPtel: [address] [place], [place] [phone] Patient will bring in/call in $50.00 payment on 06/08-LB ACUTE ILLNESS 06/01/2014 Patient Education: Patient Medication Summary Completed 06/01/2014 Appointment: Radha Botello WPtel: [address] [place], [place] [id number] [place] was in ER on 12/19/13 ACUTE ILLNESS 12/25/2013 Patient Education: Patient Medication Summary Completed 12/25/2013 Appointment: Radha Botello WPtel: [address] [place], [place] [id number] ACUTE ILLNESS 12/17/2013 Patient Education: Patient Medication Summary Completed 12/17/2013 Visit Plan: Supportive care. Rest, Fluid s, Tylenol/Motrin prn fever or bodyaches. Notify if worsening symptoms. Zitthromax 500mg daily for 1wk Tussionex 09/15/2013 Appointment: Almaz Enriquez WPtel: [phone] ACUTE ILLNESS 09/15/2013 Patient Education: Patient Medication Summary Completed 09/15/2013 Appointment: Za Barajas WPtel: [address] [place] [address] ACUTE ILLNESS 08/14/2013 Patient Education: Patient Medication Summary Completed 08/14/2013 Visit Plan: Await holter results Avoid d econgestants, caffeine Discussed likely secondary to recent illness, steroids, decongestants If persists will get ECHO 08/03/2013 Appointment: Almaz Enriquez WPtel: [address] [place] [address] ER Follow UP 08/03/2013 Patient Education: Patient Medication Summary Completed 08/03/2013 Appointment: Radha Botello WPtel: [address] [place] [address] ACUTE ILLNESS 07/21/2013 Patient Education: Patient Medication Summary Completed 07/21/2013 Appointment: Za Barajas WPtel: [address] [place] [address] ACUTE ILLNESS 06/12/2013 Patient Education: Patient Medication Summary Completed 06/12/2013 Appointment: Almaz Enriquez WPtel: [address] [place], [place] [phone] [place] FOLLOW UP 12/25/2012 Patient Education: Patient Medication Summary Completed 12/25/2012 Visit Plan: Azithromycin and codeine/lonny af cough syrup. 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 Discussed notifying if symptoms worsen or persist. Fluids and comfort care. 10/30/2012 Appointment: Lucy Willson WPtel: [address] [place] [address] ACUTE ILLNESS 10/30/2012 Patient Education: Patient Medication Summary Completed 10/30/2012 Visit Plan: Continue metformin and all o ther meds Pt going for surgery for hysterectomy 08/28/2012 Appointment: Almaz Enriquez WPtel: [address] [place], [place] [phone] FOLLOW UP 08/28/2012 Patient Education: Patient Medication Summary Completed 08/28/2012 Appointment: Almaz Enriquez WPtel: [address] [place], [place] [phone] LAB 08/27/2012 Patient Education: Patient Medication Summary Completed 08/27/2012 Visit Plan: Continue carafate and proton ix Proceed with EGD 05/27/2012 Appointment: Almaz Enriquez WPtel: [address] [place], [place] [id number] [place] [address] Follow Up 05/27/2012 Patient Education: Patient Medication Summary Completed 05/27/2012 Visit Plan: Continue metformin and accuc hecks Restart Dexilant Check insulin level with CMP in 4mos 04/30/2012 Appointment: Almaz Enriquez WPtel: [address] [place] [address] FOLLOW UP 04/30/2012 Patient Education: Patient Medication Summary Completed 04/30/2012 Appointment: Almaz Enriquez WPtel: [address] [place], [place] [phone] 04/29/2012 Patient Education: Patient Medication Summary Completed 04/29/2012 Visit Plan: Pt. reports both of her mirna gillis have experienced pink eye recently and were successfully treated with Tobramycin. Pt. is given written RX for Polymyxin B opthalmic drops. Recommend follow up with Dr. Beltre. Discussed precautions to prevent spread. 02/18/2012 Appointment: Lucy Willson WPtel: [address] [place], [place] [id number] ACUTE ILLNESS 02/18/2012 Patient Education: Patient Medication Summary Completed 02/18/2012 Visit Plan: Long discussion about diet a nd exercise and eating 6 manny meals a day with protein Add daily metformin 250mg Restart MV with iron Glucometer to use prn 01/08/2012 Appointment: Almaz Enriquez WPtel: [address] [place], [place] [phone] FOLLOW UP 01/08/2012 Patient Education: Patient Medication Summary Completed 01/08/2012 Appointment: Almaz Enriquez WPtel: [address] [place] [address] 12/25/2011 Patient Education: Patient Medication Summary Completed 12/25/2011 Visit Plan: amoxicillin. Discussed comfo rt care and cold/icy fluids. Tylenol/motrin for pain. Pt. will notify if fever or worsening symptoms. Discussed completion of antibiotic regimen 10/19/2011 Appointment: Lucy Willson WPtel: [address] [place] [address] ACUTE ILLNESS 10/19/2011 Patient Education: Patient Medication Summary Completed 10/19/2011 Appointment: Almaz Enriquez WPtel: [address] [place] [address] Follow Up 09/17/2011 Patient Education: Patient Medication Summary Completed 09/17/2011 Visit Plan: New toothebrush in 5 daysSal ine nasal flushes prn. Tylenol/Motrin prn headache. Notify if persists/symptoms worsening. 07/05/2011 Appointment: Almaz Enriquez WPtel: [address] [place] [address] ACUTE ILLNESS 07/05/2011 Patient Education: Patient Medication Summary Completed 07/05/2011 Appointment: Almaz Enriquez WPtel: [address] [place] [address] ACUTE ILLNESS 05/31/2011 Patient Education: Patient Medication Summary Completed 05/31/2011 Appointment: Almaz Enriquez WPtel: [address] [place] [address] ACUTE ILLNESS 04/11/2011 Patient Education: Patient Medication Summary Completed 04/11/2011 Visit Plan: pt. will take Cefuroxime axe til. Will notify if symptoms worsen. 03/13/2011 Appointment: Lucy Willson WPtel: [address] [place], [place] [phone] [place] ACUTE ILLNESS 03/13/2011 Patient Education: Patient Medication Summary Completed 03/13/2011 Visit Plan: Continue brace for 2-4 more weeks May exercise to point of discomfort then stop 11/30/2010 Appointment: Almaz Enriquez WPtel: [address] [place] [address] FOLLOW UP 11/30/2010 Patient Education: Patient Medication Summary Completed 11/30/2010 Visit Plan: Continue aircast and add Vim ovo po BID 11/02/2010 Appointment: Almaz Enriquez WPtel: [address] [place] [address] ER Follow UP 11/02/2010 Patient Education: Patient Medication Summary Completed 11/02/2010 Appointment: Almaz Enriquez WPtel: [address] [place] [address] 08/01/2010 Patient Education: Patient Medication Summary Completed 08/01/2010 Appointment: Lucy Willson WPtel: [address] [place] [address] ACUTE ILLNESS 07/25/2010 Patient Education: Patient Medication Summary Completed 07/25/2010 Visit Plan: Supportive care. Rest, Fluid s, Tylenol/Motrin prn fever or bodyaches. Notify if worsening symptoms. 01/02/2010 Appointment: Almaz Enriquez WPtel: [address] [place] [address] ACUTE ILLNESS 01/02/2010 Patient Education: Patient Medication Summary Completed 01/02/2010 Referral: Cyrus Min WPtel: [address] [address] [place] Referral Appointment Requested Referral: Cyrus Min WPtel: [address] [address] [place] Referral Initiated Referral: Terrence Mehta WPtel: [address] [place] [address] [id number] Mehta will review and call patien to schedule Completed Referral: Judy Prasadtel: [id number] [place] Referral Initiated Instructions Comment . Supportive [...] codeine/guiaf cough s yrup. 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
--- OUTSIDE RECORDS SUMMARY | 2020-04-20 21:02 | XMS REPORT | CCD ---
Author Author Fay Enriquez D.O., DO [facility] Address [address] [place] [address] Phone Care Team Providers Care Dockworker Name Role Phone Almaz Enriquez D.O., PP Unavailable CCM Unavailable Summary Purpose Interface Exchange Insurance Providers Payer name Policy type / Coverage type Covered green party ID Effective Begin Date Effective End Date Blue Cross Blue Shield Blue Cross/Blue Shield [id number] Unknown Family history Mother Diagnosis Age At Onset Diabetes mellitus Type 1 Unknown Social History Social History Element Codes Description Effective Dates Marital status Unknown 09/17/[address]: 829571348 Has never smoked or chewed tobacco 04/25/2011 [...] Instructions Protonix 40 mg tablet,delayed release RxNorm: 150554 1 TABLET(S ) PO QD 09/15/2019 12/13/2019 Active Protonix 40 mg tablet,delayed release RxNorm: 391231 1 Tablet(s ) PO QD 06/05/2019 09/02/2019 Inactive Bactrim DS 800 mg-160 mg tablet RxNorm: 023090 1 Tablet(s) PO BID 0 05/25/2019 05/31/2019 Inactive bmvrlddh-rsrtcdzbc-ohabbnrvz 3.5 mg/mL-10,000 unit/mL- 1 % ear solution RxNorm: 513613 4 Drop(s) otic (ear) TID 12/17/2018 12/16/2018 Inactive fwjzuyyw-qjlpfmpmu-yospgxwdb 3.5 mg/mL-10,000 unit/mL- 1 % ear solution RxNorm: 572489 4 Drop(s) otic (ear) TID 12/17/2018 12/23/2018 Inactive rig ht ear ofloxacin 0.3 % ear drops RxNorm: 355853 5 Drop(s) otic (ear) BID 0 12/16/2018 12/16/2018 Inactive right ear amoxicillin 875 mg tablet RxNorm: 815992 1 Tablet(s) PO BID 019 12/25/2018 Inactive Diflucan 200 mg tablet RxNorm: 298063 1 Tablet(s) PO Q72H 12/16/2018 01/04/2019 Inactive Bactrim DS 800 mg-160 mg tablet RxNorm: 269272 1 Tablet(s) PO BID 0 12/02/2018 12/01/2018 Inactive Bactrim DS 800 mg-160 mg tablet RxNorm: 656503 1 Tablet(s) PO BID 0 12/02/2018 12/08/2018 Inactive Protonix 40 mg tablet,delayed release RxNorm: 563620 1 Tablet(s ) PO QD 09/23/2018 12/21/2018 Inactive Protonix 40 mg tablet,delayed release RxNorm: 801677 1 Tablet(s ) PO BID 09/18/2018 09/22/2018 Inactive Voltaren 1 % topical gel RxNorm: 272221 2 Gram(s) TOP QID to ri ght knee 08/28/2018 05/05/2019 Inactive Diflucan 150 mg tablet RxNorm: 324963 1 Tablet(s) PO Q7 2H Take one tablet today and repeat in 3 days if no improvement. 10/23/2017 08/17/2018 Inactive Diflucan 150 mg tablet RxNorm: 567539 1 Tablet(s) PO Q7 2H Take one tablet today and repeat in 3 days if no improvement. 10/04/2017 10/22/2017 Inactive ofloxacin 0.3 % ear drops RxNorm: 551611 4 Drop(s) OTIC TID for 1 week 06/24/2017 08/17/2018 Inactive Medrol (Scar) 4 mg tablets in a dose pack RxNorm: 790869 Take as directed 01/18/2017 04/10/2017 Inactive ketoconazole 2 % topical cream RxNorm: 725184 Applicati on TOP BID to lesion x 2 weeks 11/26/2016 01/17/2017 Inactive Protonix 40 mg tablet,delayed release RxNorm: 180683 1 TABLET(S ) PO QD 10/13/2016 05/05/2019 Inactive phentermine 37.5 mg tablet RxNorm: 824916 1 Tablet(s) PO QAM 201511/25/2016 Inactive Medrol (Scar) 4 mg tablets in a dose pack RxNorm: 423245 Take as directed 06/14/2016 08/22/2016 Inactive Diflucan 150 mg tablet RxNorm: 837126 1 Tablet(s) PO QD . May repeat in 2-3 days if needed. 04/10/2016 04/11/2016 Inactive amoxicillin 875 mg tablet RxNorm: 666560 1 Tablet(s) PO BID 016 04/18/2016 Inactive Medrol (Scar) 4 mg tablets in a dose pack RxNorm: 756149 Take as directed 04/10/2016 04/18/2016 Inactive Anusol-HC 25 mg suppository RxNorm: 6999405 1 Suppository RTL BID 0 06/28/2015 07/11/2015 Inactive Protonix 40 mg tablet,delayed release RxNorm: 518811 1 Tablet(s ) PO QD 04/27/2015 10/23/2015 Inactive Contrave 8 mg-90 mg tablet,extended release RxNorm: 1303084 1 Tablet(s) PO QAM for 1 week then 1 po BID for 1week then 1 in AM and 2 in PM for 1week then 2 po BID 03/29/2015 06/27/2015 Inactive [SAVINGS FOR UNI NSURED PATIENTS -- BIN:[id number], PCN: [id number], Group: [id number], ID# [id number], Process claim through [employer], for questions: . THIS IS NOT INSURANCE.] Flonase Allergy Relief 50 mcg/actuation nasal spray,suspensi on RxNorm: 2 [place] NASAL QHS 02/15/2015 03/28/2015 Inactive Carafate 1 gram tablet RxNorm: 338703 1 Tablet(s) PO AC & HS 201406/13/2016 Inactive Diflucan 100 mg tablet RxNorm: 735089 1 Tablet(s) PO QD 09/30/2014 Inactive metformin ER 500 mg tablet,extended release 24hr RxNorm: 860 975 1/2 Tablet(s) PO QD 09/15/2014 12/29/2014 Inactive metformin ER 500 mg tablet,extended release 24hr RxNorm: 860 975 1/2 Tablet(s) PO QD 09/15/2014 09/14/2014 Inactive Carafate 1 gram tablet RxNorm: 779077 1 Tablet(s) PO AC & HS 201309/16/2014 Inactive Diflucan 100 mg tablet RxNorm: 034462 1 Tablet(s) PO QD 12/28/2013 Inactive amoxicillin 875 mg tablet RxNorm: 514905 1 Tablet(s) PO BID 014 01/03/2014 Inactive Protonix 40 mg tablet,delayed release RxNorm: 348532 1 Tablet(s ) PO QD 12/03/2013 07/25/2014 Inactive Zithromax 250 mg tablet RxNorm: 347334 2 Tablet(s) PO QD 09/15/2013 1 11/22/2012 Inactive Flagyl 500 mg tablet RxNorm: 553497 1 Tablet(s) PO Q12H 06/12/2013 Inactive Diflucan 100 mg tablet RxNorm: 140453 1 Tablet(s) PO QD 12/08/2012 Inactive Diflucan 100 mg tablet RxNorm: 641628 1 Tablet(s) PO QD 12/08/2012 Inactive azithromycin 250 mg tablet RxNorm: 679091 2 Tablet(s) PO QD ant ibiotic 10/30/2012 11/06/2012 Inactive Carafate 1 gram Tab RxNorm: 631067 1 Tablet(s) PO AC 05/27/201206/11 Inactive MetroCream 0.75 % Topical RxNorm: 869230 Application TOP BID 201106/11/2013 Inactive to face Protonix 40 mg Tab RxNorm: 430427 1 Tablet(s) PO QD 05/20/20122012 Inactive Dexilant 60 mg Capsule RxNorm: 457174 1 Capsule(s) PO QD 04/30/2012 0 05/26/2012 Inactive metformin ER 500 mg 24 hr Tab RxNorm: 756723 1 Tablet(s) PO QAM 10/29/2012 Inactive tobramycin 0.3 % Eye Drops RxNorm: 091073 1-2 Drop(s) O PH Q4H one to two drops in effected eye(s) every four hours for a maximum of 7 days. If no improvement in 1-2 days need eval 02/15/2012 02/19/2012 Inactive amoxicillin 875 mg tablet RxNorm: 542917 1 Tablet(s) PO BID 012 10/28/2011 Inactive Protonix 40 mg Tab RxNorm: 955042 1 Tablet(s) PO QD 04/11/20112010 Inactive cefuroxime axetil 500 mg Tab RxNorm: 758800 1 Tablet(s) PO BID 02/1303/22/2011 Inactive Ibuprofen 600 mg Tab RxNorm: 331398 1 Tablet(s) PO TID prn pain 06/24/2010 Inactive Levapak 750 mg Tablet RxNorm: 1 Tablet(s) PO QD 01/02/2010 0 Inactive Cortisporin otic (ear) RxNorm: 94572 otic (ear) No Start Date 019 Inactive Sprix 15.75 mg/spray Nasal [place] RxNorm: 2301470 1 [place] NASAL QID each nostril--for pain for 5 days No Start Date 01/07/2012 Inactive Children's Multivitamins with Iron chewable tablet RxNorm: 1 Tablet(s) PO QD No Start Date 08/17/2019 Inactive Promethazine-Codeine 6.25 mg-10 mg/5 mL Syrup RxNorm: 423749 1-2 Teaspoon(s) PO Q4H prn cough No Start Date 04/10/2011 Inactive metformin ER 500 mg 24 hr Tab RxNorm: 183242 1/2 Tablet(s) PO QAM N o Start Date 04/29/2012 Inactive metformin ER 500 mg 24 hr tablet,extended release RxNorm: 86 0975 1/2 Tablet(s) PO QD No Start Date 12/27/2012 Inactive Protonix 40 mg tablet,delayed release RxNorm: 830673 1 Tablet(s ) PO QD No Start Date 12/02/2013 Inactive Carafate 1 gram Tab RxNorm: 569854 1 Tablet(s) PO AC No Start Date Inactive Flonase 50 mcg/Actuation Nasal [place] RxNorm: 6473428 1 [place] JEROD AL BID No Start Date 04/10/2011 Inactive Protonix 40 mg tablet,delayed release RxNorm: 449967 1 Tablet(s ) PO BID No Start Date 12/29/2014 Inactive Protonix 40 mg Tab RxNorm: 727867 1 Tablet(s) PO QD No Start Date 04/2013 Inactive Dexilant 60 mg capsule, delayed release RxNorm: 091224 1 Capsul e(s) PO QD No Start Date 06/23/2017 Inactive Diflucan 150 mg tablet RxNorm: 979118 1 Tablet(s) PO Q7 2H Take one tablet today and repeat in 3 days if no improvement. No Start Date 10/03/2017 Inactive Protonix 40 mg tablet,delayed release RxNorm: 014789 1 Tablet(s ) PO QD No Start Date 04/26/2015 Inactive MetroCream 0.75 % Topical RxNorm: 933736 Application TOP BID No Sta rt Date 05/26/2012 Inactive to face Zithromax Z-Scar 250 mg Tab RxNorm: 658631 1 Tablet(s) PO QD No Star t Date 09/16/2011 Inactive as directed Protonix 40 mg tablet,delayed release RxNorm: 971363 1 Tablet(s ) PO BID No Start Date 09/17/2018 Inactive Medication Administered No Medication Administered data Immunizations No Immunization data Results Observation Observation Code Item Item Code Result Date [facility] Location THYROID STIMULATING HORMONE 36483 TSH 1.360 uIU/ML 10/03/2015 Unknown COMPREHENSIVE METABOLIC 01036 AST 12 U/L 2014 Unknown COMPREHENSIVE METABOLIC 44852 ALT 9 IU/L 2014 Unknown COMPREHENSIVE METABOLIC 29678 BUN 10 MG/DL 2014 Unknown COMPREHENSIVE METABOLIC 72859 ALBUMIN 4.3 GM/DL 2014 Unknown COMPREHENSIVE METABOLIC 44400 CHLORIDE 104 MMOL/L 10/03 Unknown COMPREHENSIVE METABOLIC 73462 BILI TOT 0.3 MG/DL 2014 Unknown COMPREHENSIVE METABOLIC 49359 ALK PHOS 34 U/L 2014 Unknown COMPREHENSIVE METABOLIC 57721 SODIUM 137 MMOL/L 10/03 Unknown COMPREHENSIVE METABOLIC 46665 CREATININE 0.77 MG/DL 09/14 Unknown COMPREHENSIVE METABOLIC 20502 CALCIUM 9.6 MG/DL 2014 Unknown COMPREHENSIVE METABOLIC 62457 POTASSIUM 4.1 MMOL/L 10/03 Unknown COMPREHENSIVE METABOLIC 57765 PROT TOT 7.1 GM/DL 2014 Unknown COMPREHENSIVE METABOLIC 97851 Glucose 92 MG/DL 2014 Unknown COMPREHENSIVE METABOLIC 31416 BICARB 27 MMOL/L 2014 Unknown COMPREHENSIVE METABOLIC 46991 ANION GAP 6 MEQ/L 2014 Unknown LIPID GROUP 77934 HDL TEST 52 MG/DL 10/03/2015 Unknown LIPID GROUP 76999 TRIG 78 MG/DL 10/03/2015 Unknown LIPID GROUP 10880 TEST LDL 114 MG/DL 10/03/2015 Unknown LIPID GROUP 65410 CHOL 182 MG/DL 10/03/2015 Unknown LIPID GROUP 37600 RCHOL/HDL 3.50 RATIO 10/03/2015 Unknow n LIPID GROUP 54825 NON-HDL CH 130 MG/DL 10/03/2015 Unknow n GFR CALC 6258298 GFR AA >60 ML/MIN 10/03/2015 Unknown GFR CALC 7089667 GFR NON-AA >60 ML/MIN 10/03/2015 Unknown COMPLETE BLOOD COUNT 6329857 WBC 4.9 10e9/L 10/03/20 15 Unknown COMPLETE BLOOD COUNT 1888226 RBC 4.49 10e12/L 2014 Unknown COMPLETE BLOOD COUNT 8359456 HGB 11.3 g/dL 5 Unknown COMPLETE BLOOD COUNT 4894111 HCT DET 34.7 % 5 Unknown COMPLETE BLOOD COUNT 2706341 MCV 77.3 fL 5 Unknown COMPLETE BLOOD COUNT 4456871 MCH 25.2 pg 5 Unknown COMPLETE BLOOD COUNT 3027450 MCHC 32.6 g/dL 5 Unknown COMPLETE BLOOD COUNT 1291946 PLT 314 10e9/L 10/03/20 15 Unknown COMPLETE BLOOD COUNT 8111789 MPV 10.4 fL 5 Unknown COMPLETE BLOOD COUNT 8914482 ALEXX % 41.0 % 5 Unknown COMPLETE BLOOD COUNT 1086006 LY % 47.7 % 5 Unknown COMPLETE BLOOD COUNT 6972525 MON % 8.4 % 5 Unknown COMPLETE BLOOD COUNT 5016969 EOS % 2.7 % 5 Unknown COMPLETE BLOOD COUNT 7474719 BASO % 0.2 % 5 Unknown COMPLETE BLOOD COUNT 5124160 RDW 14.5 % 5 Unknown COMPLETE BLOOD COUNT 8191218 ABS ALEXX 2.01 10e9/L 015 Unknown COMPLETE BLOOD COUNT 8404246 ABS LYMPH 2.34 10e9/L 015 Unknown COMPLETE BLOOD COUNT 0446006 ABS MONO 0.41 10e9/L 015 Unknown COMPLETE BLOOD COUNT 6906984 ABS EOS 0.13 10e9/L 015 Unknown COMPLETE BLOOD COUNT 8755308 ABS BASO 0.01 10e9/L 015 Unknown COMPLETE BLOOD COUNT 5717692 RDW-SD 39.6 fL 5 Unknown FREE T4 94491 FREE T4 1.08 NG/DL 10/03/2015 Unknown GFR CALC 9604104 GFR AA >60 ML/MIN 12/25/2012 Unknown GFR CALC 2417691 GFR NON-AA >60 ML/MIN 12/25/2012 Unknown INSULIN SERUM 25128 INSULIN 5.0 mU/L 12/25/2012 Unkno wn BASIC METABOLIC PANEL 05299 Glucose 82 MG/DL 12/26/19 13 Unknown BASIC METABOLIC PANEL 36798 CREATININE 0.83 MG/DL 2012 Unknown BASIC METABOLIC PANEL 29400 BUN 9 MG/DL 12/26/19 13 Unknown BASIC METABOLIC PANEL 57837 SODIUM 139 MMOL/L 013 Unknown BASIC METABOLIC PANEL 41703 BICARB 26 MMOL/L 12/26/19 13 Unknown BASIC METABOLIC PANEL 55830 POTASSIUM 4.3 MMOL/L 013 Unknown BASIC METABOLIC PANEL 55185 ANION GAP 8 MEQ/L 12/26/19 13 Unknown BASIC METABOLIC PANEL 45661 CHLORIDE 105 MMOL/L 013 Unknown BASIC METABOLIC PANEL 96727 CALCIUM 9.6 MG/DL 12/26/19 13 Unknown GFR CALC 8467192 GFR AA >60 ML/MIN 08/27/2012 Unknown GFR CALC 1944244 GFR NON-AA >60 ML/MIN 08/27/2012 Unknown COMPREHENSIVE METABOLIC 05410 AST 16 U/L 2011 Unknown COMPREHENSIVE METABOLIC 30796 ALT 11 IU/L 2011 Unknown COMPREHENSIVE METABOLIC 97639 BUN 9 MG/DL 2011 Unknown COMPREHENSIVE METABOLIC 32055 ALBUMIN 4.1 GM/DL 2011 Unknown COMPREHENSIVE METABOLIC 64622 CHLORIDE 106 MMOL/L 08/27 Unknown COMPREHENSIVE METABOLIC 44187 BILI TOT 0.2 MG/DL 2011 Unknown COMPREHENSIVE METABOLIC 82643 ALK PHOS 35 U/L 2011 Unknown COMPREHENSIVE METABOLIC 51203 SODIUM 137 MMOL/L 08/27 Unknown COMPREHENSIVE METABOLIC 76345 CREATININE 0.80 MG/DL 08/14 Unknown COMPREHENSIVE METABOLIC 77321 CALCIUM 9.2 MG/DL 2011 Unknown COMPREHENSIVE METABOLIC 98447 POTASSIUM 4.5 MMOL/L 08/27 Unknown COMPREHENSIVE METABOLIC 21992 PROT TOT 6.9 GM/DL 2011 Unknown COMPREHENSIVE METABOLIC 85184 Glucose 92 MG/DL 2011 Unknown COMPREHENSIVE METABOLIC 46867 BICARB 25 MMOL/L 2011 Unknown COMPREHENSIVE METABOLIC 43847 ANION GAP 6 MEQ/L 2011 Unknown INSULIN SERUM 42707 INSULIN 10.6 mU/L 08/27/2012 Unkno wn GFR CALC 7100177 GFR AA >60 ML/MIN 04/29/2012 Unknown GFR CALC 0985184 GFR NON-AA >60 ML/MIN 04/29/2012 Unknown GLYCOSYLATED HEMOGLOBIN TEST 94556 A1C HPLC 03932-1 5.6 % 0 04/29/2012 Unknown COMPREHENSIVE METABOLIC 42708 AST 14 U/L 2011 Unknown COMPREHENSIVE METABOLIC 54821 ALT 9 IU/L 2011 Unknown COMPREHENSIVE METABOLIC 04671 BUN 11 MG/DL 2011 Unknown COMPREHENSIVE METABOLIC 93420 ALBUMIN 4.4 GM/DL 2011 Unknown COMPREHENSIVE METABOLIC 15911 CHLORIDE 105 MMOL/L 04/29 Unknown COMPREHENSIVE METABOLIC 99158 BILI TOT 0.2 MG/DL 2011 Unknown COMPREHENSIVE METABOLIC 19046 ALK PHOS 36 U/L 2011 Unknown COMPREHENSIVE METABOLIC 49917 SODIUM 139 MMOL/L 04/29 Unknown COMPREHENSIVE METABOLIC 95157 CREATININE 0.80 MG/DL 04/13 Unknown COMPREHENSIVE METABOLIC 21751 CALCIUM 9.5 MG/DL 2011 Unknown COMPREHENSIVE METABOLIC 96596 POTASSIUM 4.4 MMOL/L 04/29 Unknown COMPREHENSIVE METABOLIC 01856 PROT TOT 6.6 GM/DL 2011 Unknown COMPREHENSIVE METABOLIC 50486 Glucose 81 MG/DL 2011 Unknown COMPREHENSIVE METABOLIC 45299 BICARB 26 MMOL/L 2011 Unknown COMPREHENSIVE METABOLIC 65201 ANION GAP 8 MEQ/L 2011 Unknown INSULIN SERUM 32321 INSULIN 28.2 mU/L 12/26/2011 Unkno wn COMPREHENSIVE METABOLIC 74982 AST 19 U/L 2011 Unknown COMPREHENSIVE METABOLIC 68572 ALT 15 IU/L 2011 Unknown COMPREHENSIVE METABOLIC 62127 BUN 8 MG/DL 2011 Unknown COMPREHENSIVE METABOLIC 56078 ALBUMIN 4.6 GM/DL 2011 Unknown COMPREHENSIVE METABOLIC 84353 CHLORIDE 105 MMOL/L 12/24 Unknown COMPREHENSIVE METABOLIC 12284 BILI TOT 0.4 MG/DL 2011 Unknown COMPREHENSIVE METABOLIC 77010 ALK PHOS 38 U/L 2011 Unknown COMPREHENSIVE METABOLIC 16584 SODIUM 141 MMOL/L 12/24 Unknown COMPREHENSIVE METABOLIC 83613 CREATININE 0.74 MG/DL 12/12 Unknown COMPREHENSIVE METABOLIC 57621 CALCIUM 9.4 MG/DL 2011 Unknown COMPREHENSIVE METABOLIC 05874 POTASSIUM 4.1 MMOL/L 12/24 Unknown COMPREHENSIVE METABOLIC 44755 PROT TOT 7.6 GM/DL 2011 Unknown COMPREHENSIVE METABOLIC 92317 Glucose 53 MG/DL 2011 Unknown COMPREHENSIVE METABOLIC 74913 BICARB 25 MMOL/L 2011 Unknown COMPREHENSIVE METABOLIC 42709 ANION GAP 11 MEQ/L 2011 Unknown COMPLETE BLOOD COUNT 87734 WBC 3.7 10e9/L 12/25/19 12 Unknown COMPLETE BLOOD COUNT 79906 RBC 4.53 10e12/L 2011 Unknown COMPLETE BLOOD COUNT 21740 HGB 11.4 g/dL 2 Unknown COMPLETE BLOOD COUNT 08793 HCT DET 35.4 % 2 Unknown COMPLETE BLOOD COUNT 99767 MCV 78.1 fL 2 Unknown COMPLETE BLOOD COUNT 11521 MCH 25.2 pg 2 Unknown COMPLETE BLOOD COUNT 76126 MCHC 32.2 g/dL 2 Unknown COMPLETE BLOOD COUNT 02902 PLT 327 10e9/L 12/25/19 12 Unknown COMPLETE BLOOD COUNT 75491 MPV 10.9 fL 2 Unknown COMPLETE BLOOD COUNT 34307 ALEXX % 30.9 % 2 Unknown COMPLETE BLOOD COUNT 46642 LY % 57.0 % 2 Unknown COMPLETE BLOOD COUNT 48839 MON % 9.1 % 2 Unknown COMPLETE BLOOD COUNT 39381 EOS % 2.7 % 2 Unknown COMPLETE BLOOD COUNT 26294 BASO % 0.3 % 2 Unknown COMPLETE BLOOD COUNT 49094 RDW 14.0 % 2 Unknown COMPLETE BLOOD COUNT 04000 ABS ALEXX 1.14 10e9/L 012 Unknown COMPLETE BLOOD COUNT 52821 ABS LYMPH 2.11 10e9/L 012 Unknown COMPLETE BLOOD COUNT 31312 ABS MONO 0.34 10e9/L 012 Unknown COMPLETE BLOOD COUNT 59893 ABS EOS 0.10 10e9/L 012 Unknown COMPLETE BLOOD COUNT 37787 ABS BASO 0.01 10e9/L 012 Unknown COMPLETE BLOOD COUNT 59900 RDW-SD 39.0 fL 2 Unknown GFR CALC 9518253 GFR AA >60 ML/MIN 12/25/2011 Unknown GFR CALC 3690682 GFR NON-AA >60 ML/MIN 12/25/2011 Unknown AMYLASE 19465 AMYLASE 63 IU/L 05/31/2011 Unknown GFR CALC 0577632 GFR AA >60 ML/MIN 05/31/2011 Unknown GFR CALC 5130236 GFR NON-AA >60 ML/MIN 05/31/2011 Unknown COMPLETE BLOOD COUNT 57934 WBC 5.0 10e9/L 05/31/20 11 Unknown COMPLETE BLOOD COUNT 60270 RBC 4.56 10e12/L 2010 Unknown COMPLETE BLOOD COUNT 58750 HGB 11.6 g/dL 1 Unknown COMPLETE BLOOD COUNT 83885 HCT DET 35.1 % 1 Unknown COMPLETE BLOOD COUNT 18889 MCV 77.0 fL 1 Unknown COMPLETE BLOOD COUNT 70809 MCH 25.4 pg 1 Unknown COMPLETE BLOOD COUNT 71922 MCHC 33.0 g/dL 1 Unknown COMPLETE BLOOD COUNT 37158 PLT 313 10e9/L 05/31/20 11 Unknown COMPLETE BLOOD COUNT 01319 MPV 11.0 fL 1 Unknown COMPLETE BLOOD COUNT 55003 ALEXX % 37.7 % 1 Unknown COMPLETE BLOOD COUNT 15627 LY % 49.1 % 1 Unknown COMPLETE BLOOD COUNT 93956 MON % 10.4 % 1 Unknown COMPLETE BLOOD COUNT 21007 EOS % 2.6 % 1 Unknown COMPLETE BLOOD COUNT 88541 BASO % 0.2 % 1 Unknown COMPLETE BLOOD COUNT 79917 RDW 13.7 % 1 Unknown COMPLETE BLOOD COUNT 61843 ABS ALEXX 1.89 10e9/L 011 Unknown COMPLETE BLOOD COUNT 47998 ABS LYMPH 2.46 10e9/L 011 Unknown COMPLETE BLOOD COUNT 62505 ABS MONO 0.52 10e9/L 011 Unknown COMPLETE BLOOD COUNT 88865 ABS EOS 0.13 10e9/L 011 Unknown COMPLETE BLOOD COUNT 54167 ABS BASO 0.01 10e9/L 011 Unknown COMPLETE BLOOD COUNT 03227 RDW-SD 37.4 fL 1 Unknown COMPREHENSIVE METABOLIC 00651 AST 16 U/L 2010 Unknown COMPREHENSIVE METABOLIC 69116 ALT 10 IU/L 2010 Unknown COMPREHENSIVE METABOLIC 51915 BUN 9 MG/DL 2010 Unknown COMPREHENSIVE METABOLIC 76152 ALBUMIN 4.4 GM/DL 2010 Unknown COMPREHENSIVE METABOLIC 58905 CHLORIDE 102 MMOL/L 05/31 Unknown COMPREHENSIVE METABOLIC 59723 BILI TOT 0.3 MG/DL 2010 Unknown COMPREHENSIVE METABOLIC 73192 ALK PHOS 36 U/L 2010 Unknown COMPREHENSIVE METABOLIC 93159 SODIUM 138 MMOL/L 05/31 Unknown COMPREHENSIVE METABOLIC 86505 CREATININE 0.72 MG/DL 05/14 Unknown COMPREHENSIVE METABOLIC 19504 CALCIUM 9.6 MG/DL 2010 Unknown COMPREHENSIVE METABOLIC 99243 POTASSIUM 3.9 MMOL/L 05/31 Unknown COMPREHENSIVE METABOLIC 28506 PROT TOT 7.2 GM/DL 2010 Unknown COMPREHENSIVE METABOLIC 84723 Glucose 82 MG/DL 2010 Unknown COMPREHENSIVE METABOLIC 39400 BICARB 29 MMOL/L 2010 Unknown COMPREHENSIVE METABOLIC 33235 ANION GAP 7 MEQ/L 2010 Unknown LIPASE 54363 LIPASE 11 IU/L 05/31/2011 Unknown Procedures Procedure Codes Date URINE CULTURE/ COLONY COUNT CPT-4: 80885 05/25/2019 STREP A ASSAY W/OPTIC CPT-4: 89493 12/16/2018 URINE CULTURE/ COLONY COUNT CPT-4: 32302 12/02/2018 URINALYSIS NONAUTO W/O SCOPE CPT-4: 84475 10/21/2017 URINE CULTURE/ COLONY COUNT CPT-4: 43591 10/21/2017 STREP A ASSAY W/OPTIC CPT-4: 98912 11/22/2015 ROUTINE VENIPUNCTURE CPT-4: 02041 10/03/2015 ASSAY OF FREE THYROXINE CPT-4: 03878 10/03/2015 ASSAY THYROID STIM HORMONE CPT-4: 26982 10/03/2015 COMPREHEN METABOLIC PANEL CPT-4: 49966 10/03/2015 COMPLETE CBC W/AUTO DIFF WBC CPT-4: 28153 10/03/2015 LIPID PANEL CPT-4: 36175 10/03/2015 URINALYSIS NONAUTO W/O SCOPE CPT-4: 72196 08/01/2015 URINE CULTURE/ COLONY COUNT CPT-4: 57190 08/01/2015 STREP A ASSAY W/OPTIC CPT-4: 98276 12/25/2013 URINALYSIS NONAUTO W/O SCOPE CPT-4: 68773 12/17/2013 THER/PROPH/DIAG INJ SC/IM CPT-4: 42999 07/21/2013 METHYLPREDNISOLONE 40 MG INJ CPT-4: J1030 07/21/2013 TRIAMCINOLONE ACET INJ NOS CPT-4: J3301 07/21/2013 C WET WA CPT-4: 98104 06/12/2013 ROUTINE VENIPUNCTURE CPT-4: 33122 12/25/2012 METABOLIC PANEL TOTAL CA CPT-4: 92601 12/25/2012 ASSAY OF INSULIN CPT-4: 79265 12/25/2012 ROUTINE VENIPUNCTURE CPT-4: 28825 08/27/2012 COMPREHEN METABOLIC PANEL CPT-4: 94082 08/27/2012 ASSAY OF INSULIN CPT-4: 37919 08/27/2012 ROUTINE VENIPUNCTURE CPT-4: 26187 04/29/2012 COMPREHEN METABOLIC PANEL CPT-4: 06666 04/29/2012 A1C GLYCOSYLATED HEMOGLOBIN TEST CPT-4: 55736 012 COMPLETE CBC W/AUTO DIFF WBC CPT-4: 85595 12/25/2011 COMPREHEN METABOLIC PANEL CPT-4: 46617 12/25/2011 ROUTINE VENIPUNCTURE CPT-4: 70611 12/25/2011 ASSAY OF INSULIN CPT-4: 44899 12/25/2011 THER/PROPH/DIAG INJ SC/IM CPT-4: 06946 09/17/2011 KETOROLAC TROMETHAMINE INJ CPT-4: J1885 09/17/2011 ROUTINE VENIPUNCTURE CPT-4: 56222 05/31/2011 COMPREHEN METABOLIC PANEL CPT-4: 30354 05/31/2011 COMPLETE CBC W/AUTO DIFF WBC CPT-4: 72203 05/31/2011 ASSAY OF LIPASE CPT-4: 68411 05/31/2011 ASSAY OF AMYLASE CPT-4: 72834 05/31/2011 URINALYSIS NONAUTO W/O SCOPE CPT-4: 37625 08/01/2010 URINE CULTURE/ COLONY COUNT CPT-4: 43412 08/01/2010 Vital Signs Date Vital 12/03/2019 Blood [...] 1: 136/86 Code: 8480-6 BMI: 33.5 Code: 10096-5 Heart Rate 1: 92 bpm Height: 5'2" Respiratory Rate: 20 bpm Temperature: 37 .1 (C) / 98.8 (F) Weight: 180 lbs 08/18/2018 Blood Pressure 1: 136/78 Code: 8480-6 Heart Rate 1: 91 bpm Respiratory Rate: 18 bpm SpO2: 99% Temperature: 36.4 (C) / 97.5 (F) We ight: 183 lbs 06/24/2017 Blood Pressure 1: 140/80 Code: 8480-6 BMI: 34.2 Code: 42179-9 Heart Rate 1: 76 bpm Height: 5'2" Respiratory Rate: 20 bpm Temperature: 36 .7 (C) / 98.0 (F) Weight: 184 lbs 04/11/2017 Blood Pressure 1: 132/86 Code: 8480-6 Heart Rate 1: 84 bpm Respiratory Rate: 20 bpm SpO2: 97% Temperature: 36.6 (C) / 97.8 (F) We ight: 181 lbs 01/18/2017 Blood Pressure 1: 122/80 Code: 8480-6 BMI: 31.6 Code: 09150-5 Heart Rate 1: 76 bpm Height: 5'2" Respiratory Rate: 20 bpm SpO2: 96% Tempera ture: 36.7 (C) / 98.1 (F) Weight: 170 lbs 11/26/2016 Blood Pressure 1: 128/80 Code: 8480-6 BMI: 31.0 Code: 74533-5 Heart Rate 1: 84 bpm Height: 5'2" Respiratory Rate: 20 bpm SpO2: 98% Tempera ture: 36.8 (C) / 98.2 (F) Weight: 167 lbs 10/25/2016 Blood Pressure 1: 118/76 Code: 8480-6 BMI: 30.9 Code: 59956-4 Heart Rate 1: 72 bpm Height: 5'2" Weight: 166 lbs 09/21/2016 Blood Pressure 1: 124/70 Code: 8480-6 BMI: 31.0 Code: 04774-8 Heart Rate 1: 80 bpm Height: 5'2" Weight: 167 lbs 08/23/2016 Blood Pressure 1: 138/82 Code: 8480-6 BMI: 31.6 Code: 79631-7 Heart Rate 1: 64 bpm Height: 5'2" [...] 1: 140/78 Code: 8480-6 BMI: 33.5 Code: 69951-0 Heart Rate 1: 82 bpm Height: 5'2" Respiratory Rate: 22 bpm SpO2: 97% Tempera ture: 36.3 (C) / 97.4 (F) Weight: 180 lbs 11/22/2015 Blood Pressure 1: 110/68 Code: 8480-6 BMI: 33.1 Code: 02127-1 Heart Rate 1: 80 bpm Height: 5'2" Respiratory Rate: 20 bpm Temperature: 36 .8 (C) / 98.3 (F) Weight: 178 lbs 06/28/2015 Blood Pressure 1: 124/70 Code: 8480-6 BMI: 31.0 Code: 70869-4 Heart Rate 1: 80 bpm Height: 5'2" Respiratory Rate: 20 bpm Temperature: 36 .8 (C) / 98.3 (F) Weight: 167 lbs 05/02/2015 Blood Pressure 1: 122/76 Code: 8480-6 BMI: 31.4 Code: 35561-4 Heart Rate 1: 78 bpm Height: 5'2" Respiratory Rate: 20 bpm Temperature: 36 .3 (C) / 97.4 (F) Weight: 169 lbs 03/29/2015 Blood Pressure 1: 126/78 Code: 8480-6 BMI: 30.9 Code: 53227-6 Heart Rate 1: 88 bpm Height: 5'2" Respiratory Rate: 20 bpm Temperature: 37 .1 (C) / 98.7 (F) Weight: 166 lbs 02/15/2015 Blood Pressure 1: 126/78 Code: 8480-6 BMI: 30.5 Code: 46587-7 Heart Rate 1: 76 bpm Height: 5'2" Respiratory Rate: 20 bpm Temperature: 36 .6 (C) / 97.8 (F) Weight: 164 lbs 12/30/2014 Blood Pressure 1: 118/84 Code: 8480-6 BMI: 30.1 Code: 23757-2 Heart Rate 1: 84 bpm Height: 5'2" Respiratory Rate: 20 bpm Temperature: 37 .0 (C) / 98.6 (F) Weight: 162 lbs 09/30/2014 Blood Pressure 1: 132/68 Code: 8480-6 BMI: 30.1 Code: 84784-8 Heart Rate 1: 84 bpm Height: 5'2" Respiratory Rate: 22 bpm Temperature: 36 .5 (C) / 97.7 (F) Weight: 162 lbs 07/19/2014 Blood Pressure 1: 126/78 Code: 8480-6 BMI: 29.7 Code: 38014-0 Heart Rate 1: 72 bpm Height: 5'2" Respiratory Rate: 20 bpm Temperature: 36 .8 (C) / 98.2 (F) Weight: 160 lbs 06/01/2014 Blood Pressure 1: 132/86 Code: 8480-6 BMI: 29.6 Code: 48349-5 Heart Rate 1: 72 bpm Height: 5'2" [...] 1: 122/80 Code: 8480-6 BMI: 29.6 Code: 71764-2 Heart Rate 1: 80 bpm Height: 5'2" Respiratory Rate: 20 bpm Temperature: 36 .8 (C) / 98.3 (F) Weight: 159 lbs 08/14/2013 Blood Pressure 1: 138/82 Code: 8480-6 BMI: 27.5 Code: 39690-5 Heart Rate 1: 66 bpm Height: 5'2" Respiratory Rate: 20 bpm Temperature: 36 .5 (C) / 97.7 (F) Weight: 148 lbs 08/03/2013 Blood Pressure 1: 126/82 Code: 8480-6 BMI: 29.1 Code: 25375-0 Heart Rate 1: 72 bpm Height: 5'1" Respiratory Rate: 20 bpm Temperature: 36 .6 (C) / 97.8 (F) Weight: 154 lbs 07/21/2013 Blood Pressure 1: 124/70 Code: 8480-6 BMI: 28.3 Code: 92089-1 Heart Rate 1: 64 bpm Height: 5'1" Respiratory Rate: 22 bpm Temperature: 36 .5 (C) / 97.7 (F) Weight: 150 lbs 06/12/2013 Blood Pressure 1: 124/78 Code: 8480-6 BMI: 28.6 Code: 65764-5 Heart Rate 1: 88 bpm Height: 5'2" Respiratory Rate: 20 bpm Temperature: 36 .9 (C) / 98.4 (F) Weight: 154 lbs 12/25/2012 Blood Pressure 1: 128/84 Code: 8480-6 BMI: 27.0 Code: 01578-1 Heart Rate 1: 76 bpm Height: 5'2" Respiratory Rate: 20 bpm Temperature: 36 .9 (C) / 98.4 (F) Weight: 145 lbs 10/30/2012 Blood Pressure 1: 122/68 Code: 8480-6 BMI: 28.8 Code: 02550-5 Heart Rate 1: 60 bpm Height: 5'2" Temperature: 36.9 (C) / 98.5 (F) Weight: 155 lbs 08/28/2012 Blood Pressure 1: 112/80 Code: 8480-6 BMI: 29.7 Code: 49636-9 Heart Rate 1: 72 bpm Height: 5'2" Respiratory Rate: 20 bpm Temperature: 36 .9 (C) / 98.5 (F) Weight: 160 lbs 05/27/2012 Blood Pressure 1: 128/80 Code: 8480-6 BMI: 28.4 Code: 26845-9 Heart Rate 1: 72 bpm Height: 5'2" Respiratory Rate: 20 bpm Temperature: 36 .8 (C) / 98.2 (F) Weight: 153 lbs 04/30/2012 Blood Pressure 1: 116/70 Code: 8480-6 BMI: 28.8 Code: 35517-5 Heart Rate 1: 84 bpm Height: 5'2" Respiratory Rate: 20 bpm Temperature: 36 .7 (C) / 98.1 (F) Weight: 155 lbs 02/18/2012 Blood Pressure 1: 118/64 Code: 8480-6 BMI: 28.4 Code: 61432-5 Heart Rate 1: 68 bpm Height: 5'2" Temperature: 36.3 (C) / 97.4 (F) Weight: 153 lbs 01/08/2012 Blood Pressure 1: 132/80 Code: 8480-6 BMI: 28.8 Code: 39440-5 Heart Rate 1: 76 bpm Height: 5'2" Respiratory Rate: 20 bpm Temperature: 36 .7 (C) / 98.1 (F) Weight: 155 lbs 10/19/2011 Blood Pressure 1: 102/72 Code: 8480-6 BMI: 27.9 Code: 52261-4 Heart Rate 1: 70 bpm Height: 5'2" Temperature: 36.9 (C) / 98.5 (F) Weight: 150 lbs 09/17/2011 Blood Pressure 1: 126/72 Code: 8480-6 BMI: 28.3 Code: 96048-1 Heart Rate 1: 84 bpm Height: 5'2" Respiratory Rate: 20 bpm Temperature: 36 .7 (C) / 98.1 (F) Weight: 152 lbs 07/05/2011 Blood Pressure 1: 102/68 Code: 8480-6 Heart Rate 1: 88 bpm Temperature: 36.7 (C) / 98.1 (F) Weight: 145 lbs 05/31/2011 Blood Pressure 1: 126/82 Code: 8480-6 BMI: 27.3 Code: 65441-3 Heart Rate 1: 80 bpm Height: 5'2" [...] Weight: 130 lbs 01/02/2010 BMI: 25.7 Code: 18746-8 Heart Rate 1: 84 bpm Height: 5 [...] metformin sore throat 10/19/2011 follow up 09/17/2011 [facility]--still on Omnicef sore throat 07/05/2011 gastroesophageal reflux [...] phlegm Encounters Encounter Performer Location Codes Date ([id number]) OFFICE/OUTPATIENT VISIT EST Diagnosis: Shingles[ICD10: B02.9] Almaz Carrasco [employer] CPT-4: 71258 12/03/2019 ([id number]) OFFICE/OUTPATIENT VISIT EST Diagnosis: Nasopharyngitis[ICD10: J00] Nikole WU S. O DINA [employer] CPT-4: 42603 08/18/2019 ([id number]) OFFICE/OUTPATIENT VISIT EST Diagnosis: Low back pain[ICD10: M54.5] Diagnosis: Personal history of urinary (tract) infections[ICD10: Z87.440] Nikole RYDERER [employer] CPT-4: 17085 05/25/2019 ([id number]) OFFICE/OUTPATIENT VISIT EST Diagnosis: Palpitations[ICD10: R00.2] Almaz Price OR JOJO [employer] CPT-4: 54159 05/06/2019 OFFICE/OUTPATIENT VISIT EST Diagnosis: Other infective otitis externa, right ear[ICD10: H60.391] Diagnosis: Acute serous otitis media, recurrent, right ear[ICD10: H65.04] Elisha ENRIQUEZ DO [facility] CPT-4: 15479 12/16/2018 ([id number]) NURSE/OUTPATIENT VISIT EST Diagnosis: Dysuria[ICD10: R30.0] Almaz ENRIQUEZ DO [facility] CPT-4: 13430 12/02/2018 ([id number]) OFFICE/OUTPATIENT VISIT EST Diagnosis: Palpitations[ICD10: R00.2] Diagnosis: Abnormal results of thyroid function studies[ICD10: R94.6] Almaz ENRIQUEZ DO [facility] CPT-4: 98574 09/09/2018 ([id number]) OFFICE/OUTPATIENT VISIT EST Diagnosis: Pain in right knee[ICD10: M25.561] Almaz ENRIQUEZ DO [facility] CPT-4: 27866 08/28/2018 ([id number]) OFFICE/OUTPATIENT VISIT EST Diagnosis: Gastro-esophageal reflux disease without esophagitis[ICD10: K21.9] Almaz ENRIQUEZ DO [facility] CPT-4: 26679 08/18/2018 ([id number]) OFFICE/OUTPATIENT VISIT EST Diagnosis: Other polyuria[ICD10: R35.8] Almaz ENRIQUEZ DO [facility] CPT-4: 53139 10/21/2017 ([id number]) OFFICE/OUTPATIENT VISIT EST Diagnosis: Otalgia, left ear[ICD10: H92.02] Diagnosis: Left temporomandibular joint disorder, unspecified[ICD10: M26.602] Almaz ENRIQUEZ DO [facility] CPT-4: 03576 06/24/2017 OFFICE/OUTPATIENT VISIT EST Diagnosis: Insect bite (nonvenomous) of right upper arm, sequela[ICD10: S40.861S] Almaz ENRIQUEZ DO [facility] CPT-4: 60554 04/11/2017 ([id number]) OFFICE/OUTPATIENT VISIT EST Diagnosis: Other seasonal allergic rhinitis[ICD10: J30.2] Aracelis Mercado ALMAZ ENRIQUEZ [facility] CPT-4: 40214 01/18/2017 ([id number]) OFFICE/OUTPATIENT VISIT EST Diagnosis: Abnormal weight gain[ICD10: R63.5] Diagnosis: Tinea corporis[ICD10: B35.4] Almaz Zoe MAGANALINE Dee ENRIQUEZ DO [facility] CPT-4: 84026 11/26/2016 ([id number]) OFFICE/OUTPATIENT VISIT EST Diagnosis: Abnormal weight gain[ICD10: R63.5] Almaz KATHLEEN Dee ENRIQUEZ DO [facility] CPT-4: 71032 08/23/2016 ([id number]) OFFICE/OUTPATIENT VISIT EST Diagnosis: Pain in left knee[ICD10: M25.562] Aracelis Rogelio Villafana Dee ENRIQUEZ DO [facility] CPT-4: 53984 06/14/2016 OFFICE/OUTPATIENT VISIT EST Diagnosis: Other specified disorders of Eustachian tube, left ear[ICD10: H69.82] Radha ENRIQUEZ DO [facility] CPT-4: 65845 04/19/2016 ([id number]) OFFICE/OUTPATIENT VISIT EST Diagnosis: Other specified disorders of Eustachian tube, bilateral[ICD10: H69.83] Diagnosis: Otitis media, unspecified, right ear[ICD10: H66.91] Aracelis MAGANALINE Dee ENRIQUEZ DO [facility] CPT-4: 10548 04/10/2016 OFFICE/OUTPATIENT VISIT EST Diagnosis: Acute pharyngitis, unspecified[ICD10: J02.9] Radha MAGANALINE Dee ENRIQUEZ DO [facility] CPT-4: 80090 11/22/2015 ([id number]) OFFICE/OUTPATIENT VISIT EST Diagnosis: Encounter for general adult medical examination without abnormal findings[ICD10: Z00.00] Almaz Zoe MAGANALINE Dee ENRIQUEZ DO [facility] CPT-4: 18729 10/03/2015 ([id number]) OFFICE/OUTPATIENT VISIT EST Diagnosis: Myalgia[ICD10: M79.1] Diagnosis: Unspecified abdominal pain[ICD10: R10.9] Almaz Nathanpreeti WU BlancheKaz ZOE JONES [facility] CPT-4: 06900 08/01/2015 ([id number]) OFFICE/OUTPATIENT VISIT EST Diagnosis: Proctalgia[ICD9: 569.42] Diagnosis: Rectal bleeding[ICD9: 569.3] Almaz ENRIQUEZ [facility] CPT-4: 23730 06/28/2015 ([id number]) OFFICE/OUTPATIENT VISIT EST Diagnosis: Right calf pain[ICD9: 729.5] Za Jenn ALMAZ BlancheKaz ZOE JONES [facility] CPT-4: 18323 05/02/2015 ([id number]) OFFICE/OUTPATIENT VISIT EST Diagnosis: Flank pain[ICD9: 789.00] Diagnosis: MALAISE AND FATIGUE[ICD9: 780.79] Diagnosis: ABNORMAL WEIGHT GAIN[ICD9: 783.1] Almaz Nathanpreeti CALLAWAY Ledy ManciaKaz ZOE [facility] CPT-4: 34776 03/29/2015 ([id number]) OFFICE/OUTPATIENT VISIT EST Diagnosis: ALLERGIC RHINITIS[ICD9: 477.9] Almaz Nathanpreeti ALMAZ Blanche Kaz ZOE [facility] CPT-4: 92563 02/15/2015 ([id number]) OFFICE/OUTPATIENT VISIT EST Diagnosis: GERD[ICD9: 530.81] Almaz MAGANALINE BlancheKaz ZOE [facility] CPT-4: 30304 12/30/2014 ([id number]) OFFICE/OUTPATIENT VISIT EST Diagnosis: Tenosynovitis, de Quervain[ICD9: 727.04] Diagnosis: Paresthesia of hand[ICD9: 782.0] Almaz Nathanpreeti WU BlancheKaz ZOE [facility] CPT-4: 09427 09/30/2014 ([id number]) OFFICE/OUTPATIENT VISIT EST Diagnosis: ABDOMINAL PAIN[ICD9: 789.00] Diagnosis: GERD[ICD9: 530.81] Diagnosis: TREMOR NEC[ICD9: 333.1] Almazliv MAGANALINE BlancheKaz BRITNI GRAHAM [facility] CPT-4: 10109 07/19/2014 ([id number]) OFFICE/OUTPATIENT VISIT EST Diagnosis: PAIN, LOWER BACK[ICD9: 724.2] Diagnosis: SPASM OF MUSCLE[ICD9: 728.85] Almaz CALDERAQUELINE BlancheKaz ZOE [facility] CPT-4: 89404 06/01/2014 OFFICE/OUTPATIENT VISIT EST Diagnosis: TONSILLITIS, ACUTE[ICD9: 463] Diagnosis: STREPTOCOCCAL INFECTION GROUP A[ICD9: 041.01] Radha ENRIQUEZ [facility] CPT-4: 18305 12/25/2013 OFFICE/OUTPATIENT VISIT EST Diagnosis: DYSURIA[ICD9: 788.1] Radha ENRIQUEZ [facility] CPT-4: 66978 12/17/2013 ([id number]) OFFICE/OUTPATIENT VISIT EST Diagnosis: BRONCHITIS, ACUTE[ICD9: 466.0] Almaz ENRIQUEZ [facility] CPT-4: 32220 09/15/2013 OFFICE/OUTPATIENT VISIT EST Diagnosis: URI, ACUTE[ICD9: 465.9] Za Barajas ALMAZ RYDER [facility] CPT-4: 78657 08/14/2013 ([id number]) OFFICE/OUTPATIENT VISIT EST Diagnosis: PALPITATIONS[ICD9: 785.1] Almaz OWEN [facility] CPT-4: 80300 08/03/2013 OFFICE/OUTPATIENT VISIT EST Diagnosis: SINUSITIS, ACUTE[ICD9: 461.9] Diagnosis: Dysfunction of left Eustachian tube[ICD9: 381.81] Radha ENRIQUEZ [facility] CPT-4: 34229 07/21/2013 OFFICE/OUTPATIENT VISIT EST Diagnosis: Vaginal disorder[ICD9: 623.9] Za Barajas [facility] CPT-[facility]: 94399 06/12/2013 OFFICE/OUTPATIENT VISIT EST Diagnosis: HYPOGLYCEMIA NEC[ICD9: 251.1] Diagnosis: GERD[ICD9: 530.81] Almaz ENRIQUEZ [facility] CPT-4: 00917 12/25/2012 OFFICE/OUTPATIENT VISIT EST Diagnosis: COUGH[ICD9: 786.2] Diagnosis: PHARYNGITIS, ACUTE[ICD9: 462] Almaz ENRIQUEZ [facility] CPT-4: 47498 10/30/2012 OFFICE/OUTPATIENT VISIT EST Diagnosis: HYPOGLYCEMIA[ICD9: 251.2] Diagnosis: GERD[ICD9: 530.81] Diagnosis: Fibroid tumor[ICD9: 218.9] Almaz DIAZ JOJO [facility] CPT-4: 80974 08/28/2012 ([id number]) OFFICE/OUTPATIENT VISIT EST Diagnosis: Hyperglycemia[ICD9: 790.29] Almaz Mancia. O RENDER [facility] CPT-4: 60137 08/27/2012 ([id number]) OFFICE/OUTPATIENT VISIT EST Diagnosis: GERD[ICD9: 530.81] Almaz ENRIQUEZ [facility] CPT-4: 69791 05/27/2012 ([id number]) OFFICE/OUTPATIENT VISIT EST Diagnosis: HYPOGLYCEMIA NEC[ICD9: 251.1] Diagnosis: GERD[ICD9: 530.81] [facility]: 61879 04/30/2012 ([id number]) OFFICE/OUTPATIENT VISIT EST Diagnosis: HYPOGLYCEMIA[ICD9: 251.2] Almaz NEWBERRY NDER [facility] CPT-4: 66081 04/29/2012 OFFICE/OUTPATIENT VISIT EST Diagnosis: CONJUNCTIVITIS NOS[ICD9: 372.30] Almaz ENRIQUEZ [facility] CPT-4: 49447 02/18/2012 OFFICE/OUTPATIENT VISIT EST Diagnosis: Hyperinsulinemia[ICD9: 251.1] Diagnosis: HYPOGLYCEMIA[ICD9: 251.2] Almaz NEWBERRY NDER [facility] CPT-4: 79043 01/08/2012 ([id number]) OFFICE/OUTPATIENT VISIT EST Diagnosis: Leg cramps[ICD9: 729.82] Almaz NEWBERRYN PAULIE [facility] CPT-4: 00389 12/25/2011 OFFICE/OUTPATIENT VISIT EST Diagnosis: PHARYNGITIS, ACUTE[ICD9: 462] Almaz NEWBERRYNDER [facility] CPT-4: 13348 10/19/2011 OFFICE/OUTPATIENT VISIT EST Diagnosis: Pyelonephritis[ICD9: 590.80] Diagnosis: Flank pain[ICD9: 789.00] Diagnosis: Recurrent UTI[ICD9: 599.0] Diagnosis: Thoracic back pain[ICD9: 724.1] Almaz ENRIQUEZ DO [facility] CPT-4: 56362 09/17/2011 OFFICE/OUTPATIENT VISIT EST Diagnosis: PHARYNGITIS, ACUTE[ICD9: 462] Almaz ENRIQUEZ DO [facility] CPT-4: 27304 07/05/2011 OFFICE/OUTPATIENT VISIT EST Diagnosis: GERD[ICD9: 530.81] Diagnosis: ABDOMINAL PAIN[ICD9: 789.00] Almaz ENRIQUEZ DO [facility] CPT-4: 19609 05/31/2011 OFFICE/OUTPATIENT VISIT EST Almaz NEWBERRY NDER [facility] CPT- 4: 58321 04/11/2011 ([id number]) OFFICE/OUTPATIENT VISIT EST Almaz LAFLEUR SKaz NEWBERRYNDER DO [facility] CPT-4: 80968 03/13/2011 ([id number]) OFFICE/OUTPATIENT VISIT EST Almaz RYDERER DO [facility] CPT-4: 67539 11/30/2010 ([id number]) OFFICE/OUTPATIENT VISIT, EST Almaz RYDERER [facility] CPT-4: 94231 11/02/2010 ([id number]) OFFICE/OUTPATIENT VISIT, EST Lucy Demetris ALMAZ NEWBERRYNDER [facility] CPT-4: 21652 07/25/2010 ([id number]) OFFICE/OUTPATIENT VISIT, EST Almaz ENRIQUEZ DO [facility] CPT-4: 23366 01/02/2010 Plan of Care Planned Activity Notes [...] ICD-10 : J00 08/18/2019 Appointment: Nikole Gabriel [address] [place] [address] ACUTE ILLNESS 08/18/2019 Visit Diagnosis Plan: Low back pain Discussion: urine dip neg. will send for culture. bactrim bid for 7 days to cover for infection due to patient's hx. instructed to push water. call office if no improvement tomorrow or to ED with worsening. ICD-9 : 724.2 ICD-10 : M54.5 05/25/2019 Appointment: Nikole Gabriel [address] [place] [address] ACUTE ILLNESS 05/25/2019 Visit Diagnosis Plan: Palpitations Discussion: Check C BC, iron, ferritin, TSH, Free T4, CMP Check 24hr holter Denies any energy drinks, supplements, etc. To ER if come on and persist with any associated dyspnea, dizziness, CP, etc. ICD-9 : 785.1 ICD-10 : R00.2 05/06/2019 Appointment: Almaz Enriquez WPtel: [facility] [address] ACUTE ILLNESS 05/06/2019 Visit Diagnosis Plan: [...] ICD-10 : H60.391 12/16/2018 Appointment: Elisha Leiva [address] [place] [address] ACUTE ILLNESS 12/16/2018 Patient Education: amoxicillin- [employer] Coupon [phone] [email or web address]/resources/[email or web address] Completed 12/16/2018 Appointment: Almaz Enriquez WPtel: [address] [place] [address] 12/02/2018 Visit Diagnosis Plan: Palpitations Discussion: Discuss [...] : R94.6 09/09/2018 Appointment: Almaz Enriquez WPtel: [address] [place] [address] Hospital Follow Up 09/09/2018 Visit Diagnosis Plan: Pain in right knee Discussion: R dung to Dr. Pako Lowry and topical voltaren ICD-9 : 719.46 ICD-10 : M25.561 08/28/2018 Appointment: Almaz Enriquez WPtel: [address] [place] [address] ACUTE ILLNESS 08/28/2018 Care Plan: Referral Order SNOMED-CT : 30 [id number] Pending 08/28/2018 Visit Diagnosis Plan: Gastro-esophageal reflux disease without esophagitis Discussion: Left lower chest pain appears to be from GI etiology so will resume protonix 40mg po BID for next week and see if resolves, if improved then can go to protonix 40mg po daily ICD-9 : 530.81 ICD-10 : K21.9 08/18/2018 Appointment: Nikole Gabriel [address] [place] [address] ACUTE ILLNESS 08/18/2018 Patient Education: Patient Medication Summary Completed 05/13/2018 Care Plan: MAMMOGRAM SCREENING LOINC : 2 6347-5 Pending 05/13/2018 Appointment: Almaz Enriquez WPtel: [address] [place] [address] 10/21/2017 Patient Education: Patient Medication Summary Completed [...] : H92.02 06/24/2017 Appointment: Almaz Enriquez WPtel: [address] [place] [address] ACUTE ILLNESS 06/24/2017 Patient Education: Patient Medication Summary Completed 06/24/2017 Patient Education: Patient Medication Summary Completed 05/14/2017 Visit Diagnosis Plan: Insect bite (nonvenomous) of rig ht upper arm, sequela Discussion: Finish all abx Add Zyrtec 10mg daily for 10 days ICD-9 : 906.2 ICD-10 : S40.861S 04/11/2017 Appointment: Almaz Enriquez WPtel: [address] [place], [place] [id number] ER Follow UP 04/11/2017 Patient Education: Patient Medication Summary Completed 04/11/2017 Visit Diagnosis Plan: Other seasonal allergic rhinitis Discussion: Add benadryl at bedtime Nasal rinses, steroid nasal spray Vicks and humidifier Monitor for signs of infection Follow up PRN ICD-9 : 477.9 ICD-10 : J30.2 01/18/2017 Appointment: Aracelis Mercado [address] [place] [address] ACUTE ILLNESS 01/18/2017 Patient Education: Patient Medication Summary Completed 01/18/2017 Visit Diagnosis Plan: Abnormal weight gain Discussion: Long discussion about diet/exercise/lifestyle change--3month trial ICD-9 : 783.1 ICD-10 : R63.5 11/26/2016 Visit Diagnosis Plan: Tinea corporis Discussion: Ketoc onazole BID for 2 weeks Notify if persist or worsens ICD-9 : 110.5 ICD-10 : B35.4 11/26/2016 Appointment: Almaz Enriquez WPtel: [address] [place], [place] [phone] 11/22 confirm~sl FOLLOW UP 11/26/2016 Patient Education: Patient Medication Summary Completed 11/26/2016 Appointment: Almaz Enriquez WPtel: [address] [place] [address] WEIGHT CHECK 10/25/2016 Patient Education: Patient Medication Summary Completed 10/25/2016 Appointment: Almaz Enriquez WPtel: [address] [place] [address] BP CHECK 09/21/2016 Patient Education: Patient Medication Summary Completed 09/21/2016 Visit Plan: Is working out routinely Bulmaro l do phenteramine 37.5mg Weight and BP check next 2 months then fwup in 3mos 08/23/2016 Appointment: Almaz Enriquez WPtel: [address] [place] [address] 08/22 confirmed~sl FOLLOW UP 08/23/2016 Patient Education: Patient Medication Summary Completed 08/23/2016 Patient Education: Patient Medication Summary Completed 06/22/2016 Care Plan: X-RAY EXAM OF KNEE 1 OR 2 RUPALI [place] : 99519-4 Pending 06/22/2016 Visit Plan: RICE and rx as above Reduce strain on knee OTC pain relievers if needed Knee sleeve Call in 7-10 days if not improving for xray orders 06/14/2016 Appointment: Aracelis Mercado [address] [place] [address] ACUTE ILLNESS 06/14/2016 Patient Education: Patient Medication Summary Completed 06/14/2016 Referral: Jatinder Ambrose WPtel: [address] Referral Appointment Requested 05/09/2016 Visit Plan: Attempted to use ET popper w ith minimal relief Fluticasone nasal spray - 2 sprays each nostril one time daily 04/19/2016 Appointment: Radha Botello WPtel: [address] [place] [address] 04/18 confirmed~sl ACUTE ILLNESS 04/19/2016 Patient Education: [...] Follow up PRN 04/10/2016 Appointment: Aracelis Mercado [address] [place] [address] ACUTE ILLNESS 04/10/2016 Patient Education: Patient Medication Summary Completed 04/10/2016 Visit Plan: Strep Screen - negative Geronimo mmending warm saline gargles and notify if symptoms worsen 11/22/2015 Appointment: Radha Botello WPtel: [address] [place] [address] ACUTE ILLNESS 11/22/2015 Patient Education: Patient Medication Summary Completed 11/22/2015 Appointment: Almaz Enriquez WPtel: [address] [place] [address] 10/03/2015 Patient Education: Patient Medication Summary Completed 10/03/2015 Appointment: Almaz Enriquez WPtel: [address] [place] [address] 08/01/2015 Patient Education: Patient Medication Summary Completed 08/01/2015 Visit Plan: Anusol HC supp for 2weeks Al ign daily for 2weeks If resolves then will observe as came on after recent GI bug but if persists or comes back will need colonoscopy 06/28/2015 Appointment: Almaz Enriquez WPtel: [address] [place] [address] ACUTE ILLNESS 06/28/2015 Patient Education: Patient Medication Summary Completed 06/28/2015 Appointment: Almaz Enriquez WPtel: [address] [place], [place] [phone] 05/27 vm cn FOLLOW UP 05/30/2015 Appointment: Almaz Enriquez WPtel: [address] [place], [place] [phone] ACUTE ILLNESS 05/16/2015 Visit Plan: Venous dopple of right leg o rdered (tomorrow 10am) Recommended daily EC ASA until results 05/02/2015 Appointment: Za Barajas WPtel: [address] [place], [place] [phone] ACUTE ILLNESS 05/02/2015 Patient Education: Patient Medication Summary Completed 05/02/2015 Visit Plan: Contrave starter pack Fwup i n 2mos 03/29/2015 Appointment: Almaz Enriquez WPtel: [address] [place] [address] ER Follow UP 03/29/2015 Patient Education: Patient Medication Summary Completed 03/29/2015 Visit Plan: Start Loratadine 10mg po BID Add flonase q HS 02/15/2015 Appointment: Almaz Enriquez WPtel: [address] [place] [address] ACUTE ILLNESS 02/15/2015 Patient Education: Patient Medication Summary Completed 02/15/2015 Visit Plan: Continue protonix and carafa te See GI for update EGD vs pH probe/etc. Discussed musculoskeletal etiology as well as patient does have some chest wall pain and thoracic pain 12/30/2014 Appointment: Almaz Enriquez WPtel: [address] [place], [place] [phone] ER Follow UP 12/30/2014 Patient Education: Patient Medication Summary Completed 12/30/2014 Referral: [phone] [id number] office verifies ins they s chedule with patient directly 10/20/14 Per Patient - she cannot go to this consult because due to her work comp case she must see their preferred drKaz Perdomo 10/12/2014 Appointment: Almaz Enriquez WPtel: [address] [place], [place] [phone] ER Follow UP 09/30/2014 Patient Education: Patient Medication Summary Completed 09/30/2014 Visit Plan: List reglan as an allergy--t remor of thumb has improved since stopping Add carafate to protonix for next 2-4weeks If resolves will observe, if not will need updated EGD 07/19/2014 Appointment: Almaz Enriquez WPtel: [address] [place], [place] [phone] 07/16 also left message that payment is due E R Follow UP 07/19/2014 Patient Education: Patient Medication Summary Completed 07/19/2014 Visit Plan: Stretches, moist heat, topic al biofreeze Amrix 15mg q PM Celebrex 200mg po BID 06/01/2014 Appointment: Almaz Enriquez WPtel: [address] [place], [place] [phone] Patient will bring in/call in $50.00 payment on 06/08-LB ACUTE ILLNESS 06/01/2014 Patient Education: Patient Medication Summary Completed 06/01/2014 Appointment: Radha Botello WPtel: [address] [place], [place] [id number] [place] was in ER on 12/19/13 ACUTE ILLNESS 12/25/2013 Patient Education: Patient Medication Summary Completed 12/25/2013 Appointment: Radha Botello WPtel: [address] [place], [place] [id number] ACUTE ILLNESS 12/17/2013 Patient Education: Patient Medication Summary Completed 12/17/2013 Visit Plan: Supportive care. Rest, Fluid s, Tylenol/Motrin prn fever or bodyaches. Notify if worsening symptoms. Zitthromax 500mg daily for 1wk Tussionex 09/15/2013 Appointment: Almaz Enriquez WPtel: [phone] ACUTE ILLNESS 09/15/2013 Patient Education: Patient Medication Summary Completed 09/15/2013 Appointment: Za Barajas WPtel: [address] [place] [address] ACUTE ILLNESS 08/14/2013 Patient Education: Patient Medication Summary Completed 08/14/2013 Visit Plan: Await holter results Avoid d econgestants, caffeine Discussed likely secondary to recent illness, steroids, decongestants If persists will get ECHO 08/03/2013 Appointment: Almaz Enriquez WPtel: [address] [place] [address] ER Follow UP 08/03/2013 Patient Education: Patient Medication Summary Completed 08/03/2013 Appointment: Radha Botello WPtel: [address] [place] [address] ACUTE ILLNESS 07/21/2013 Patient Education: Patient Medication Summary Completed 07/21/2013 Appointment: Za Barajas WPtel: [address] [place] [address] ACUTE ILLNESS 06/12/2013 Patient Education: Patient Medication Summary Completed 06/12/2013 Appointment: Almaz Enriquez WPtel: [address] [place], [place] [phone] [place] FOLLOW UP 12/25/2012 Patient Education: Patient Medication Summary Completed 12/25/2012 Visit Plan: Azithromycin and codeine/lonny af cough syrup. 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 Discussed notifying if symptoms worsen or persist. Fluids and comfort care. 10/30/2012 Appointment: Lucy Willson WPtel: [address] [place] [address] ACUTE ILLNESS 10/30/2012 Patient Education: Patient Medication Summary Completed 10/30/2012 Visit Plan: Continue metformin and all o ther meds Pt going for surgery for hysterectomy 08/28/2012 Appointment: Almaz Enriquez WPtel: [address] [place], [place] [id number] FOLLOW UP 08/28/2012 Patient Education: Patient Medication Summary Completed 08/28/2012 Appointment: Almaz Enriquez WPtel: [address] [place], [place] [id number] LAB 08/27/2012 Patient Education: Patient Medication Summary Completed 08/27/2012 Visit Plan: Continue carafate and proton ix Proceed with EGD 05/27/2012 Appointment: Almaz Enriquez WPtel: [address] [place], [place] [id number] [place] [address] Follow Up 05/27/2012 Patient Education: Patient Medication Summary Completed 05/27/2012 Visit Plan: Continue metformin and accuc hecks Restart Dexilant Check insulin level with CMP in 4mos 04/30/2012 Appointment: Almaz Enriquez WPtel: [address] [place] [address] FOLLOW UP 04/30/2012 Patient Education: Patient Medication Summary Completed 04/30/2012 Appointment: Almaz Enriquez WPtel: [address] [place], [place] [id number] LAB 04/29/2012 Patient Education: Patient Medication Summary Completed 04/29/2012 Visit Plan: Pt. reports both of her mirna gillis have experienced pink eye recently and were successfully treated with Tobramycin. Pt. is given written RX for Polymyxin B opthalmic drops. Recommend follow up with Dr. Beltre. Discussed precautions to prevent spread. 02/18/2012 Appointment: Lucy Willson WPtel: [address] [place], [place] [phone] ACUTE ILLNESS 02/18/2012 Patient Education: Patient Medication Summary Completed 02/18/2012 Visit Plan: Long discussion about diet a nd exercise and eating 6 manny meals a day with protein Add daily metformin 250mg Restart MV with iron Glucometer to use prn 01/08/2012 Appointment: Almaz Enriquez WPtel: [address] [place], [place] [id number] FOLLOW UP 01/08/2012 Patient Education: Patient Medication Summary Completed 01/08/2012 Appointment: Almaz Enriquez WPtel: [address] [place] [address] 12/25/2011 Patient Education: Patient Medication Summary Completed 12/25/2011 Visit Plan: amoxicillin. Discussed comfo rt care and cold/icy fluids. Tylenol/motrin for pain. Pt. will notify if fever or worsening symptoms. Discussed completion of antibiotic regimen 10/19/2011 Appointment: Lucy Willson WPtel: [address] [place] [address] ACUTE ILLNESS 10/19/2011 Patient Education: Patient Medication Summary Completed 10/19/2011 Appointment: Almaz Enriquez WPtel: [address] [place] [address] Follow Up 09/17/2011 Patient Education: Patient Medication Summary Completed 09/17/2011 Visit Plan: New toothebrush in 5 daysSal ine nasal flushes prn. Tylenol/Motrin prn headache. Notify if persists/symptoms worsening. 07/05/2011 Appointment: Almaz Enriquez WPtel: [address] [place] [address] ACUTE ILLNESS 07/05/2011 Patient Education: Patient Medication Summary Completed 07/05/2011 Appointment: Almaz Enriquez WPtel: [address] [place] [address] ACUTE ILLNESS 05/31/2011 Patient Education: Patient Medication Summary Completed 05/31/2011 Appointment: Almaz Enriquez WPtel: [address] [place] [address] ACUTE ILLNESS 04/11/2011 Patient Education: Patient Medication Summary Completed 04/11/2011 Visit Plan: pt. will take Cefuroxime axe til. Will notify if symptoms worsen. 03/13/2011 Appointment: Lucy Willson WPtel: [address] [place], [place] [phone] [place] ACUTE ILLNESS 03/13/2011 Patient Education: Patient Medication Summary Completed 03/13/2011 Visit Plan: Continue brace for 2-4 more weeks May exercise to point of discomfort then stop 11/30/2010 Appointment: Almaz Enriquez WPtel: [address] [place] [address] FOLLOW UP 11/30/2010 Patient Education: Patient Medication Summary Completed 11/30/2010 Visit Plan: Continue aircast and add Vim ovo po BID 11/02/2010 Appointment: Almaz Enriquez WPtel: [address] [place] [address] ER Follow UP 11/02/2010 Patient Education: Patient Medication Summary Completed 11/02/2010 Appointment: Almaz Enriquez WPtel: [address] [place] [address] 08/01/2010 Patient Education: Patient Medication Summary Completed 08/01/2010 Appointment: Lucy Willson WPtel: [address] [place] [address] ACUTE ILLNESS 07/25/2010 Patient Education: Patient Medication Summary Completed 07/25/2010 Visit Plan: Supportive care. Rest, Fluid s, Tylenol/Motrin prn fever or bodyaches. Notify if worsening symptoms. 01/02/2010 Appointment: Almaz Enriquez WPtel: [address] [place] [address] ACUTE ILLNESS 01/02/2010 Patient Education: Patient Medication Summary Completed 01/02/2010 Referral: Cyrus Min WPtel: [address] [address] [place] Referral Appointment Requested Referral: Cyrus Min WPtel: [address] [address] [place] Referral Initiated Referral: Terrence Mehta WPtel: [address] [place] [address] [id number] Mehta will review and call patien to schedule Completed Referral: Judy Prasadtel: [facility] [id number] [place] Referral Initiated Instructions Comment . Supportive [...] codeine/guiaf cough s yrup. 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
--- OUTSIDE RECORDS SUMMARY | 2020-04-20 21:02 | XMS REPORT | CCD ---
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 Manager Name Role Phone Almaz Enriquez D.O., PP Unavailable CCM Unavailable Summary Purpose Interface Exchange Insurance Providers Payer name Policy type / Coverage type Covered constitution party ID Effective Begin Date Effective End Date Blue Cross Blue Shield Blue Cross/Blue Shield [id number] Unknown Family history Mother Diagnosis Age At Onset Diabetes mellitus Type 1 Unknown Social History Social History Element Codes Description Effective Dates Marital status Unknown 09/17/[address]: 056784832 Has never smoked or chewed tobacco 04/25/2011 [...] Instructions Protonix 40 mg tablet,delayed release RxNorm: 200954 1 TABLET(S ) PO QD 09/15/2019 12/13/2019 Active Protonix 40 mg tablet,delayed release RxNorm: 072229 1 Tablet(s ) PO QD 06/05/2019 09/02/2019 Inactive Bactrim DS 800 mg-160 mg tablet RxNorm: 752848 1 Tablet(s) PO BID 0 05/25/2019 05/31/2019 Inactive ykpcberj-vxfpruqke-emkynagan 3.5 mg/mL-10,000 unit/mL- 1 % ear solution RxNorm: 958746 4 Drop(s) otic (ear) TID 12/17/2018 12/16/2018 Inactive cofcsbsm-rschwidex-mdpbxpkyl 3.5 mg/mL-10,000 unit/mL- 1 % ear solution RxNorm: 260098 4 Drop(s) otic (ear) TID 12/17/2018 12/23/2018 Inactive rig ht ear ofloxacin 0.3 % ear drops RxNorm: 937695 5 Drop(s) otic (ear) BID 0 12/16/2018 12/16/2018 Inactive right ear amoxicillin 875 mg tablet RxNorm: 938763 1 Tablet(s) PO BID 019 12/25/2018 Inactive Diflucan 200 mg tablet RxNorm: 340387 1 Tablet(s) PO Q72H 12/16/2018 01/04/2019 Inactive Bactrim DS 800 mg-160 mg tablet RxNorm: 023335 1 Tablet(s) PO BID 0 12/02/2018 12/01/2018 Inactive Bactrim DS 800 mg-160 mg tablet RxNorm: 136206 1 Tablet(s) PO BID 0 12/02/2018 12/08/2018 Inactive Protonix 40 mg tablet,delayed release RxNorm: 534294 1 Tablet(s ) PO QD 09/23/2018 12/21/2018 Inactive Protonix 40 mg tablet,delayed release RxNorm: 147138 1 Tablet(s ) PO BID 09/18/2018 09/22/2018 Inactive Voltaren 1 % topical gel RxNorm: 047809 2 Gram(s) TOP QID to ri ght knee 08/28/2018 05/05/2019 Inactive Diflucan 150 mg tablet RxNorm: 946653 1 Tablet(s) PO Q7 2H Take one tablet today and repeat in 3 days if no improvement. 10/23/2017 08/17/2018 Inactive Diflucan 150 mg tablet RxNorm: 469307 1 Tablet(s) PO Q7 2H Take one tablet today and repeat in 3 days if no improvement. 10/04/2017 10/22/2017 Inactive ofloxacin 0.3 % ear drops RxNorm: 621077 4 Drop(s) OTIC TID for 1 week 06/24/2017 08/17/2018 Inactive Medrol (Scar) 4 mg tablets in a dose pack RxNorm: 264823 Take as directed 01/18/2017 04/10/2017 Inactive ketoconazole 2 % topical cream RxNorm: 784389 Applicati on TOP BID to lesion x 2 weeks 11/26/2016 01/17/2017 Inactive Protonix 40 mg tablet,delayed release RxNorm: 753859 1 TABLET(S ) PO QD 10/13/2016 05/05/2019 Inactive phentermine 37.5 mg tablet RxNorm: 516178 1 Tablet(s) PO QAM 201511/25/2016 Inactive Medrol (Scar) 4 mg tablets in a dose pack RxNorm: 142280 Take as directed 06/14/2016 08/22/2016 Inactive Diflucan 150 mg tablet RxNorm: 623633 1 Tablet(s) PO QD . May repeat in 2-3 days if needed. 04/10/2016 04/11/2016 Inactive amoxicillin 875 mg tablet RxNorm: 575708 1 Tablet(s) PO BID 016 04/18/2016 Inactive Medrol (Scar) 4 mg tablets in a dose pack RxNorm: 816929 Take as directed 04/10/2016 04/18/2016 Inactive Anusol-HC 25 mg suppository RxNorm: 4809688 1 Suppository RTL BID 0 06/28/2015 07/11/2015 Inactive Protonix 40 mg tablet,delayed release RxNorm: 148800 1 Tablet(s ) PO QD 04/27/2015 10/23/2015 Inactive Contrave 8 mg-90 mg tablet,extended release RxNorm: 0008019 1 Tablet(s) PO QAM for 1 week then 1 po BID for 1week then 1 in AM and 2 in PM for 1week then 2 po BID 03/29/2015 06/27/2015 Inactive [SAVINGS FOR UNI NSURED PATIENTS -- BIN:[id number], PCN: [id number], Group: [id number], ID# [id number], Process claim through [employer], for questions: . THIS IS NOT INSURANCE.] Flonase Allergy Relief 50 mcg/actuation nasal spray,suspensi on RxNorm: 2 [place] NASAL QHS 02/15/2015 03/28/2015 Inactive Carafate 1 gram tablet RxNorm: 097042 1 Tablet(s) PO AC & HS 201406/13/2016 Inactive Diflucan 100 mg tablet RxNorm: 474966 1 Tablet(s) PO QD 09/30/2014 Inactive metformin ER 500 mg tablet,extended release 24hr RxNorm: 860 975 1/2 Tablet(s) PO QD 09/15/2014 12/29/2014 Inactive metformin ER 500 mg tablet,extended release 24hr RxNorm: 860 975 1/2 Tablet(s) PO QD 09/15/2014 09/14/2014 Inactive Carafate 1 gram tablet RxNorm: 400618 1 Tablet(s) PO AC & HS 201309/16/2014 Inactive Diflucan 100 mg tablet RxNorm: 840500 1 Tablet(s) PO QD 12/28/2013 Inactive amoxicillin 875 mg tablet RxNorm: 068858 1 Tablet(s) PO BID 014 01/03/2014 Inactive Protonix 40 mg tablet,delayed release RxNorm: 307551 1 Tablet(s ) PO QD 12/03/2013 07/25/2014 Inactive Zithromax 250 mg tablet RxNorm: 878417 2 Tablet(s) PO QD 09/15/2013 1 11/22/2012 Inactive Flagyl 500 mg tablet RxNorm: 793559 1 Tablet(s) PO Q12H 06/12/2013 Inactive Diflucan 100 mg tablet RxNorm: 452101 1 Tablet(s) PO QD 12/08/2012 Inactive Diflucan 100 mg tablet RxNorm: 992296 1 Tablet(s) PO QD 12/08/2012 Inactive azithromycin 250 mg tablet RxNorm: 236497 2 Tablet(s) PO QD ant ibiotic 10/30/2012 11/06/2012 Inactive Carafate 1 gram Tab RxNorm: 261966 1 Tablet(s) PO AC 05/27/201206/11 Inactive MetroCream 0.75 % Topical RxNorm: 194601 Application TOP BID 201106/11/2013 Inactive to face Protonix 40 mg Tab RxNorm: 714857 1 Tablet(s) PO QD 05/20/20122012 Inactive Dexilant 60 mg Capsule RxNorm: 828649 1 Capsule(s) PO QD 04/30/2012 0 05/26/2012 Inactive metformin ER 500 mg 24 hr Tab RxNorm: 820172 1 Tablet(s) PO QAM 10/29/2012 Inactive tobramycin 0.3 % Eye Drops RxNorm: 891480 1-2 Drop(s) O PH Q4H one to two drops in effected eye(s) every four hours for a maximum of 7 days. If no improvement in 1-2 days need eval 02/15/2012 02/19/2012 Inactive amoxicillin 875 mg tablet RxNorm: 819209 1 Tablet(s) PO BID 012 10/28/2011 Inactive Protonix 40 mg Tab RxNorm: 972444 1 Tablet(s) PO QD 04/11/20112010 Inactive cefuroxime axetil 500 mg Tab RxNorm: 754564 1 Tablet(s) PO BID 02/1303/22/2011 Inactive Ibuprofen 600 mg Tab RxNorm: 620530 1 Tablet(s) PO TID prn pain 06/24/2010 Inactive Levapak 750 mg Tablet RxNorm: 1 Tablet(s) PO QD 01/02/2010 0 Inactive Cortisporin otic (ear) RxNorm: 50227 otic (ear) No Start Date 019 Inactive Sprix 15.75 mg/spray Nasal [place] RxNorm: 3540915 1 [place] NASAL QID each nostril--for pain for 5 days No Start Date 01/07/2012 Inactive Children's Multivitamins with Iron chewable tablet RxNorm: 1 Tablet(s) PO QD No Start Date 08/17/2019 Inactive Promethazine-Codeine 6.25 mg-10 mg/5 mL Syrup RxNorm: 895832 1-2 Teaspoon(s) PO Q4H prn cough No Start Date 04/10/2011 Inactive metformin ER 500 mg 24 hr Tab RxNorm: 793679 1/2 Tablet(s) PO QAM N o Start Date 04/29/2012 Inactive metformin ER 500 mg 24 hr tablet,extended release RxNorm: 86 0975 1/2 Tablet(s) PO QD No Start Date 12/27/2012 Inactive Protonix 40 mg tablet,delayed release RxNorm: 468059 1 Tablet(s ) PO QD No Start Date 12/02/2013 Inactive Carafate 1 gram Tab RxNorm: 464187 1 Tablet(s) PO AC No Start Date Inactive Flonase 50 mcg/Actuation Nasal [place] RxNorm: 2344109 1 [place] JEROD AL BID No Start Date 04/10/2011 Inactive Protonix 40 mg tablet,delayed release RxNorm: 149705 1 Tablet(s ) PO BID No Start Date 12/29/2014 Inactive Protonix 40 mg Tab RxNorm: 531304 1 Tablet(s) PO QD No Start Date 04/2013 Inactive Dexilant 60 mg capsule, delayed release RxNorm: 342029 1 Capsul e(s) PO QD No Start Date 06/23/2017 Inactive Diflucan 150 mg tablet RxNorm: 966202 1 Tablet(s) PO Q7 2H Take one tablet today and repeat in 3 days if no improvement. No Start Date 10/03/2017 Inactive Protonix 40 mg tablet,delayed release RxNorm: 178388 1 Tablet(s ) PO QD No Start Date 04/26/2015 Inactive MetroCream 0.75 % Topical RxNorm: 061275 Application TOP BID No Sta rt Date 05/26/2012 Inactive to face Zithromax Z-Scar 250 mg Tab RxNorm: 684343 1 Tablet(s) PO QD No Star t Date 09/16/2011 Inactive as directed Protonix 40 mg tablet,delayed release RxNorm: 486713 1 Tablet(s ) PO BID No Start Date 09/17/2018 Inactive Medication Administered No Medication Administered data Immunizations No Immunization data Results Observation Observation Code Item Item Code Result Date S [facility] Location THYROID STIMULATING HORMONE 62141 TSH 1.360 uIU/ML 10/03/2015 Unknown COMPREHENSIVE METABOLIC 83621 AST 12 U/L 2014 Unknown COMPREHENSIVE METABOLIC 05782 ALT 9 IU/L 2014 Unknown COMPREHENSIVE METABOLIC 76350 BUN 10 MG/DL 2014 Unknown COMPREHENSIVE METABOLIC 03508 ALBUMIN 4.3 GM/DL 2014 Unknown COMPREHENSIVE METABOLIC 68793 CHLORIDE 104 MMOL/L 10/03 Unknown COMPREHENSIVE METABOLIC 85948 BILI TOT 0.3 MG/DL 2014 Unknown COMPREHENSIVE METABOLIC 57074 ALK PHOS 34 U/L 2014 Unknown COMPREHENSIVE METABOLIC 83094 SODIUM 137 MMOL/L 10/03 Unknown COMPREHENSIVE METABOLIC 13969 CREATININE 0.77 MG/DL 09/14 Unknown COMPREHENSIVE METABOLIC 61677 CALCIUM 9.6 MG/DL 2014 Unknown COMPREHENSIVE METABOLIC 31776 POTASSIUM 4.1 MMOL/L 10/03 Unknown COMPREHENSIVE METABOLIC 08471 PROT TOT 7.1 GM/DL 2014 Unknown COMPREHENSIVE METABOLIC 02539 Glucose 92 MG/DL 2014 Unknown COMPREHENSIVE METABOLIC 14130 BICARB 27 MMOL/L 2014 Unknown COMPREHENSIVE METABOLIC 02418 ANION GAP 6 MEQ/L 2014 Unknown LIPID GROUP 02205 HDL TEST 52 MG/DL 10/03/2015 Unknown LIPID GROUP 79845 TRIG 78 MG/DL 10/03/2015 Unknown LIPID GROUP 63561 TEST LDL 114 MG/DL 10/03/2015 Unknown LIPID GROUP 45063 CHOL 182 MG/DL 10/03/2015 Unknown LIPID GROUP 58481 RCHOL/HDL 3.50 RATIO 10/03/2015 Unknow n LIPID GROUP 66445 NON-HDL CH 130 MG/DL 10/03/2015 Unknow n GFR CALC 7562221 GFR AA >60 ML/MIN 10/03/2015 Unknown GFR CALC 6323928 GFR NON-AA >60 ML/MIN 10/03/2015 Unknown COMPLETE BLOOD COUNT 3512347 WBC 4.9 10e9/L 10/03/20 15 Unknown COMPLETE BLOOD COUNT 9710805 RBC 4.49 10e12/L 2014 Unknown COMPLETE BLOOD COUNT 3894734 HGB 11.3 g/dL 5 Unknown COMPLETE BLOOD COUNT 7579471 HCT DET 34.7 % 5 Unknown COMPLETE BLOOD COUNT 6881152 MCV 77.3 fL 5 Unknown COMPLETE BLOOD COUNT 4002875 MCH 25.2 pg 5 Unknown COMPLETE BLOOD COUNT 9155871 MCHC 32.6 g/dL 5 Unknown COMPLETE BLOOD COUNT 7455025 PLT 314 10e9/L 10/03/20 15 Unknown COMPLETE BLOOD COUNT 1544806 MPV 10.4 fL 5 Unknown COMPLETE BLOOD COUNT 0998792 ALEXX % 41.0 % 5 Unknown COMPLETE BLOOD COUNT 1003023 LY % 47.7 % 5 Unknown COMPLETE BLOOD COUNT 5481730 MON % 8.4 % 5 Unknown COMPLETE BLOOD COUNT 0721670 EOS % 2.7 % 5 Unknown COMPLETE BLOOD COUNT 8027660 BASO % 0.2 % 5 Unknown COMPLETE BLOOD COUNT 4881870 RDW 14.5 % 5 Unknown COMPLETE BLOOD COUNT 9310704 ABS ALEXX 2.01 10e9/L 015 Unknown COMPLETE BLOOD COUNT 7408558 ABS LYMPH 2.34 10e9/L 015 Unknown COMPLETE BLOOD COUNT 8796108 ABS MONO 0.41 10e9/L 015 Unknown COMPLETE BLOOD COUNT 2682396 ABS EOS 0.13 10e9/L 015 Unknown COMPLETE BLOOD COUNT 2036765 ABS BASO 0.01 10e9/L 015 Unknown COMPLETE BLOOD COUNT 3614950 RDW-SD 39.6 fL 5 Unknown FREE T4 67664 FREE T4 1.08 NG/DL 10/03/2015 Unknown GFR CALC 4047698 GFR AA >60 ML/MIN 12/25/2012 Unknown GFR CALC 3246595 GFR NON-AA >60 ML/MIN 12/25/2012 Unknown INSULIN SERUM 48192 INSULIN 5.0 mU/L 12/25/2012 Unkno wn BASIC METABOLIC PANEL 63919 Glucose 82 MG/DL 12/26/19 13 Unknown BASIC METABOLIC PANEL 89314 CREATININE 0.83 MG/DL 2012 Unknown BASIC METABOLIC PANEL 39922 BUN 9 MG/DL 12/26/19 13 Unknown BASIC METABOLIC PANEL 67682 SODIUM 139 MMOL/L 013 Unknown BASIC METABOLIC PANEL 17391 BICARB 26 MMOL/L 12/26/19 13 Unknown BASIC METABOLIC PANEL 82698 POTASSIUM 4.3 MMOL/L 013 Unknown BASIC METABOLIC PANEL 95064 ANION GAP 8 MEQ/L 12/26/19 13 Unknown BASIC METABOLIC PANEL 95695 CHLORIDE 105 MMOL/L 013 Unknown BASIC METABOLIC PANEL 21654 CALCIUM 9.6 MG/DL 12/26/19 13 Unknown GFR CALC 8764311 GFR AA >60 ML/MIN 08/27/2012 Unknown GFR CALC 0836737 GFR NON-AA >60 ML/MIN 08/27/2012 Unknown COMPREHENSIVE METABOLIC 25849 AST 16 U/L 2011 Unknown COMPREHENSIVE METABOLIC 65511 ALT 11 IU/L 2011 Unknown COMPREHENSIVE METABOLIC 35693 BUN 9 MG/DL 2011 Unknown COMPREHENSIVE METABOLIC 89525 ALBUMIN 4.1 GM/DL 2011 Unknown COMPREHENSIVE METABOLIC 42414 CHLORIDE 106 MMOL/L 08/27 Unknown COMPREHENSIVE METABOLIC 44942 BILI TOT 0.2 MG/DL 2011 Unknown COMPREHENSIVE METABOLIC 30869 ALK PHOS 35 U/L 2011 Unknown COMPREHENSIVE METABOLIC 73489 SODIUM 137 MMOL/L 08/27 Unknown COMPREHENSIVE METABOLIC 25166 CREATININE 0.80 MG/DL 08/14 Unknown COMPREHENSIVE METABOLIC 20019 CALCIUM 9.2 MG/DL 2011 Unknown COMPREHENSIVE METABOLIC 96967 POTASSIUM 4.5 MMOL/L 08/27 Unknown COMPREHENSIVE METABOLIC 46301 PROT TOT 6.9 GM/DL 2011 Unknown COMPREHENSIVE METABOLIC 86441 Glucose 92 MG/DL 2011 Unknown COMPREHENSIVE METABOLIC 43336 BICARB 25 MMOL/L 2011 Unknown COMPREHENSIVE METABOLIC 17152 ANION GAP 6 MEQ/L 2011 Unknown INSULIN SERUM 80700 INSULIN 10.6 mU/L 08/27/2012 Unkno wn GFR CALC 8033045 GFR AA >60 ML/MIN 04/29/2012 Unknown GFR CALC 2409326 GFR NON-AA >60 ML/MIN 04/29/2012 Unknown GLYCOSYLATED HEMOGLOBIN TEST 82956 A1C HPLC 79208-0 5.6 % 0 04/29/2012 Unknown COMPREHENSIVE METABOLIC 32267 AST 14 U/L 2011 Unknown COMPREHENSIVE METABOLIC 27803 ALT 9 IU/L 2011 Unknown COMPREHENSIVE METABOLIC 39588 BUN 11 MG/DL 2011 Unknown COMPREHENSIVE METABOLIC 18056 ALBUMIN 4.4 GM/DL 2011 Unknown COMPREHENSIVE METABOLIC 43698 CHLORIDE 105 MMOL/L 04/29 Unknown COMPREHENSIVE METABOLIC 56598 BILI TOT 0.2 MG/DL 2011 Unknown COMPREHENSIVE METABOLIC 07739 ALK PHOS 36 U/L 2011 Unknown COMPREHENSIVE METABOLIC 09694 SODIUM 139 MMOL/L 04/29 Unknown COMPREHENSIVE METABOLIC 23546 CREATININE 0.80 MG/DL 04/13 Unknown COMPREHENSIVE METABOLIC 00949 CALCIUM 9.5 MG/DL 2011 Unknown COMPREHENSIVE METABOLIC 59538 POTASSIUM 4.4 MMOL/L 04/29 Unknown COMPREHENSIVE METABOLIC 28319 PROT TOT 6.6 GM/DL 2011 Unknown COMPREHENSIVE METABOLIC 00638 Glucose 81 MG/DL 2011 Unknown COMPREHENSIVE METABOLIC 79022 BICARB 26 MMOL/L 2011 Unknown COMPREHENSIVE METABOLIC 15905 ANION GAP 8 MEQ/L 2011 Unknown INSULIN SERUM 16075 INSULIN 28.2 mU/L 12/26/2011 Unkno wn COMPREHENSIVE METABOLIC 96476 AST 19 U/L 2011 Unknown COMPREHENSIVE METABOLIC 37373 ALT 15 IU/L 2011 Unknown COMPREHENSIVE METABOLIC 15074 BUN 8 MG/DL 2011 Unknown COMPREHENSIVE METABOLIC 12456 ALBUMIN 4.6 GM/DL 2011 Unknown COMPREHENSIVE METABOLIC 23468 CHLORIDE 105 MMOL/L 12/24 Unknown COMPREHENSIVE METABOLIC 04205 BILI TOT 0.4 MG/DL 2011 Unknown COMPREHENSIVE METABOLIC 27310 ALK PHOS 38 U/L 2011 Unknown COMPREHENSIVE METABOLIC 66551 SODIUM 141 MMOL/L 12/24 Unknown COMPREHENSIVE METABOLIC 14486 CREATININE 0.74 MG/DL 12/12 Unknown COMPREHENSIVE METABOLIC 00580 CALCIUM 9.4 MG/DL 2011 Unknown COMPREHENSIVE METABOLIC 52957 POTASSIUM 4.1 MMOL/L 12/24 Unknown COMPREHENSIVE METABOLIC 10399 PROT TOT 7.6 GM/DL 2011 Unknown COMPREHENSIVE METABOLIC 17948 Glucose 53 MG/DL 2011 Unknown COMPREHENSIVE METABOLIC 92495 BICARB 25 MMOL/L 2011 Unknown COMPREHENSIVE METABOLIC 96847 ANION GAP 11 MEQ/L 2011 Unknown COMPLETE BLOOD COUNT 18541 WBC 3.7 10e9/L 12/25/19 12 Unknown COMPLETE BLOOD COUNT 93336 RBC 4.53 10e12/L 2011 Unknown COMPLETE BLOOD COUNT 56001 HGB 11.4 g/dL 2 Unknown COMPLETE BLOOD COUNT 99577 HCT DET 35.4 % 2 Unknown COMPLETE BLOOD COUNT 05217 MCV 78.1 fL 2 Unknown COMPLETE BLOOD COUNT 00531 MCH 25.2 pg 2 Unknown COMPLETE BLOOD COUNT 88580 MCHC 32.2 g/dL 2 Unknown COMPLETE BLOOD COUNT 25350 PLT 327 10e9/L 12/25/19 12 Unknown COMPLETE BLOOD COUNT 66571 MPV 10.9 fL 2 Unknown COMPLETE BLOOD COUNT 15379 ALEXX % 30.9 % 2 Unknown COMPLETE BLOOD COUNT 87529 LY % 57.0 % 2 Unknown COMPLETE BLOOD COUNT 14254 MON % 9.1 % 2 Unknown COMPLETE BLOOD COUNT 91686 EOS % 2.7 % 2 Unknown COMPLETE BLOOD COUNT 88268 BASO % 0.3 % 2 Unknown COMPLETE BLOOD COUNT 40633 RDW 14.0 % 2 Unknown COMPLETE BLOOD COUNT 44454 ABS ALEXX 1.14 10e9/L 012 Unknown COMPLETE BLOOD COUNT 27506 ABS LYMPH 2.11 10e9/L 012 Unknown COMPLETE BLOOD COUNT 25375 ABS MONO 0.34 10e9/L 012 Unknown COMPLETE BLOOD COUNT 61694 ABS EOS 0.10 10e9/L 012 Unknown COMPLETE BLOOD COUNT 76710 ABS BASO 0.01 10e9/L 012 Unknown COMPLETE BLOOD COUNT 18602 RDW-SD 39.0 fL 2 Unknown GFR CALC 8916635 GFR AA >60 ML/MIN 12/25/2011 Unknown GFR CALC 2305684 GFR NON-AA >60 ML/MIN 12/25/2011 Unknown AMYLASE 84896 AMYLASE 63 IU/L 05/31/2011 Unknown GFR CALC 6799052 GFR AA >60 ML/MIN 05/31/2011 Unknown GFR CALC 9163727 GFR NON-AA >60 ML/MIN 05/31/2011 Unknown COMPLETE BLOOD COUNT 94635 WBC 5.0 10e9/L 05/31/20 11 Unknown COMPLETE BLOOD COUNT 93646 RBC 4.56 10e12/L 2010 Unknown COMPLETE BLOOD COUNT 81649 HGB 11.6 g/dL 1 Unknown COMPLETE BLOOD COUNT 40900 HCT DET 35.1 % 1 Unknown COMPLETE BLOOD COUNT 99923 MCV 77.0 fL 1 Unknown COMPLETE BLOOD COUNT 37243 MCH 25.4 pg 1 Unknown COMPLETE BLOOD COUNT 33118 MCHC 33.0 g/dL 1 Unknown COMPLETE BLOOD COUNT 77225 PLT 313 10e9/L 05/31/20 11 Unknown COMPLETE BLOOD COUNT 91880 MPV 11.0 fL 1 Unknown COMPLETE BLOOD COUNT 80060 ALEXX % 37.7 % 1 Unknown COMPLETE BLOOD COUNT 84897 LY % 49.1 % 1 Unknown COMPLETE BLOOD COUNT 03712 MON % 10.4 % 1 Unknown COMPLETE BLOOD COUNT 65721 EOS % 2.6 % 1 Unknown COMPLETE BLOOD COUNT 00979 BASO % 0.2 % 1 Unknown COMPLETE BLOOD COUNT 61355 RDW 13.7 % 1 Unknown COMPLETE BLOOD COUNT 22881 ABS ALEXX 1.89 10e9/L 011 Unknown COMPLETE BLOOD COUNT 36920 ABS LYMPH 2.46 10e9/L 011 Unknown COMPLETE BLOOD COUNT 34253 ABS MONO 0.52 10e9/L 011 Unknown COMPLETE BLOOD COUNT 49824 ABS EOS 0.13 10e9/L 011 Unknown COMPLETE BLOOD COUNT 20414 ABS BASO 0.01 10e9/L 011 Unknown COMPLETE BLOOD COUNT 78895 RDW-SD 37.4 fL 1 Unknown COMPREHENSIVE METABOLIC 94182 AST 16 U/L 2010 Unknown COMPREHENSIVE METABOLIC 31955 ALT 10 IU/L 2010 Unknown COMPREHENSIVE METABOLIC 47862 BUN 9 MG/DL 2010 Unknown COMPREHENSIVE METABOLIC 21541 ALBUMIN 4.4 GM/DL 2010 Unknown COMPREHENSIVE METABOLIC 56978 CHLORIDE 102 MMOL/L 05/31 Unknown COMPREHENSIVE METABOLIC 72894 BILI TOT 0.3 MG/DL 2010 Unknown COMPREHENSIVE METABOLIC 82423 ALK PHOS 36 U/L 2010 Unknown COMPREHENSIVE METABOLIC 50478 SODIUM 138 MMOL/L 05/31 Unknown COMPREHENSIVE METABOLIC 45839 CREATININE 0.72 MG/DL 05/14 Unknown COMPREHENSIVE METABOLIC 47914 CALCIUM 9.6 MG/DL 2010 Unknown COMPREHENSIVE METABOLIC 84816 POTASSIUM 3.9 MMOL/L 05/31 Unknown COMPREHENSIVE METABOLIC 90561 PROT TOT 7.2 GM/DL 2010 Unknown COMPREHENSIVE METABOLIC 17664 Glucose 82 MG/DL 2010 Unknown COMPREHENSIVE METABOLIC 17758 BICARB 29 MMOL/L 2010 Unknown COMPREHENSIVE METABOLIC 07447 ANION GAP 7 MEQ/L 2010 Unknown LIPASE 48935 LIPASE 11 IU/L 05/31/2011 Unknown Procedures Procedure Codes Date URINE CULTURE/ COLONY COUNT CPT-4: 31832 05/25/2019 STREP A ASSAY W/OPTIC CPT-4: 29081 12/16/2018 URINE CULTURE/ COLONY COUNT CPT-4: 97713 12/02/2018 URINALYSIS NONAUTO W/O SCOPE CPT-4: 41379 10/21/2017 URINE CULTURE/ COLONY COUNT CPT-4: 65548 10/21/2017 STREP A ASSAY W/OPTIC CPT-4: 70755 11/22/2015 ROUTINE VENIPUNCTURE CPT-4: 62753 10/03/2015 ASSAY OF FREE THYROXINE CPT-4: 48592 10/03/2015 ASSAY THYROID STIM HORMONE CPT-4: 97480 10/03/2015 COMPREHEN METABOLIC PANEL CPT-4: 50545 10/03/2015 COMPLETE CBC W/AUTO DIFF WBC CPT-4: 45381 10/03/2015 LIPID PANEL CPT-4: 87927 10/03/2015 URINALYSIS NONAUTO W/O SCOPE CPT-4: 54960 08/01/2015 URINE CULTURE/ COLONY COUNT CPT-4: 99878 08/01/2015 STREP A ASSAY W/OPTIC CPT-4: 97231 12/25/2013 URINALYSIS NONAUTO W/O SCOPE CPT-4: 24581 12/17/2013 THER/PROPH/DIAG INJ SC/IM CPT-4: 41643 07/21/2013 METHYLPREDNISOLONE 40 MG INJ CPT-4: J1030 07/21/2013 TRIAMCINOLONE ACET INJ NOS CPT-4: J3301 07/21/[address] CPT-4: 99730 06/12/2013 ROUTINE VENIPUNCTURE CPT-4: 66090 12/25/2012 METABOLIC PANEL TOTAL CA CPT-4: 08273 12/25/2012 ASSAY OF INSULIN CPT-4: 64823 12/25/2012 ROUTINE VENIPUNCTURE CPT-4: 15353 08/27/2012 COMPREHEN METABOLIC PANEL CPT-4: 36016 08/27/2012 ASSAY OF INSULIN CPT-4: 11517 08/27/2012 ROUTINE VENIPUNCTURE CPT-4: 56303 04/29/2012 COMPREHEN METABOLIC PANEL CPT-4: 19746 04/29/2012 A1C GLYCOSYLATED HEMOGLOBIN TEST CPT-4: 59466 012 COMPLETE CBC W/AUTO DIFF WBC CPT-4: 44660 12/25/2011 COMPREHEN METABOLIC PANEL CPT-4: 56273 12/25/2011 ROUTINE VENIPUNCTURE CPT-4: 68753 12/25/2011 ASSAY OF INSULIN CPT-4: 97392 12/25/2011 THER/PROPH/DIAG INJ SC/IM CPT-4: 81100 09/17/2011 KETOROLAC TROMETHAMINE INJ CPT-4: J1885 09/17/2011 ROUTINE VENIPUNCTURE CPT-4: 62705 05/31/2011 COMPREHEN METABOLIC PANEL CPT-4: 63873 05/31/2011 COMPLETE CBC W/AUTO DIFF WBC CPT-4: 70362 05/31/2011 ASSAY OF LIPASE CPT-4: 20752 05/31/2011 ASSAY OF AMYLASE CPT-4: 53827 05/31/2011 URINALYSIS NONAUTO W/O SCOPE CPT-4: 77652 08/01/2010 URINE CULTURE/ COLONY COUNT CPT-4: 84607 08/01/2010 Vital Signs Date Vital 12/03/2019 Blood [...] 1: 136/86 Code: 8480-6 BMI: 33.5 Code: 61492-5 Heart Rate 1: 92 bpm Height: 5'2" Respiratory Rate: 20 bpm Temperature: 37 .1 (C) / 98.8 (F) Weight: 180 lbs 08/18/2018 Blood Pressure 1: 136/78 Code: 8480-6 Heart Rate 1: 91 bpm Respiratory Rate: 18 bpm SpO2: 99% Temperature: 36.4 (C) / 97.5 (F) We ight: 183 lbs 06/24/2017 Blood Pressure 1: 140/80 Code: 8480-6 BMI: 34.2 Code: 59779-1 Heart Rate 1: 76 bpm Height: 5'2" Respiratory Rate: 20 bpm Temperature: 36 .7 (C) / 98.0 (F) Weight: 184 lbs 04/11/2017 Blood Pressure 1: 132/86 Code: 8480-6 Heart Rate 1: 84 bpm Respiratory Rate: 20 bpm SpO2: 97% Temperature: 36.6 (C) / 97.8 (F) We ight: 181 lbs 01/18/2017 Blood Pressure 1: 122/80 Code: 8480-6 BMI: 31.6 Code: 15129-2 Heart Rate 1: 76 bpm Height: 5'2" Respiratory Rate: 20 bpm SpO2: 96% Tempera ture: 36.7 (C) / 98.1 (F) Weight: 170 lbs 11/26/2016 Blood Pressure 1: 128/80 Code: 8480-6 BMI: 31.0 Code: 26925-2 Heart Rate 1: 84 bpm Height: 5'2" Respiratory Rate: 20 bpm SpO2: 98% Tempera ture: 36.8 (C) / 98.2 (F) Weight: 167 lbs 10/25/2016 Blood Pressure 1: 118/76 Code: 8480-6 BMI: 30.9 Code: 83835-7 Heart Rate 1: 72 bpm Height: 5'2" Weight: 166 lbs 09/21/2016 Blood Pressure 1: 124/70 Code: 8480-6 BMI: 31.0 Code: 43222-8 Heart Rate 1: 80 bpm Height: 5'2" Weight: 167 lbs 08/23/2016 Blood Pressure 1: 138/82 Code: 8480-6 BMI: 31.6 Code: 63322-2 Heart Rate 1: 64 bpm Height: 5'2" [...] 1: 140/78 Code: 8480-6 BMI: 33.5 Code: 06066-8 Heart Rate 1: 82 bpm Height: 5'2" Respiratory Rate: 22 bpm SpO2: 97% Tempera ture: 36.3 (C) / 97.4 (F) Weight: 180 lbs 11/22/2015 Blood Pressure 1: 110/68 Code: 8480-6 BMI: 33.1 Code: 56513-8 Heart Rate 1: 80 bpm Height: 5'2" Respiratory Rate: 20 bpm Temperature: 36 .8 (C) / 98.3 (F) Weight: 178 lbs 06/28/2015 Blood Pressure 1: 124/70 Code: 8480-6 BMI: 31.0 Code: 25704-8 Heart Rate 1: 80 bpm Height: 5'2" Respiratory Rate: 20 bpm Temperature: 36 .8 (C) / 98.3 (F) Weight: 167 lbs 05/02/2015 Blood Pressure 1: 122/76 Code: 8480-6 BMI: 31.4 Code: 63442-7 Heart Rate 1: 78 bpm Height: 5'2" Respiratory Rate: 20 bpm Temperature: 36 .3 (C) / 97.4 (F) Weight: 169 lbs 03/29/2015 Blood Pressure 1: 126/78 Code: 8480-6 BMI: 30.9 Code: 47222-5 Heart Rate 1: 88 bpm Height: 5'2" Respiratory Rate: 20 bpm Temperature: 37 .1 (C) / 98.7 (F) Weight: 166 lbs 02/15/2015 Blood Pressure 1: 126/78 Code: 8480-6 BMI: 30.5 Code: 22674-3 Heart Rate 1: 76 bpm Height: 5'2" Respiratory Rate: 20 bpm Temperature: 36 .6 (C) / 97.8 (F) Weight: 164 lbs 12/30/2014 Blood Pressure 1: 118/84 Code: 8480-6 BMI: 30.1 Code: 44753-4 Heart Rate 1: 84 bpm Height: 5'2" Respiratory Rate: 20 bpm Temperature: 37 .0 (C) / 98.6 (F) Weight: 162 lbs 09/30/2014 Blood Pressure 1: 132/68 Code: 8480-6 BMI: 30.1 Code: 15828-5 Heart Rate 1: 84 bpm Height: 5'2" Respiratory Rate: 22 bpm Temperature: 36 .5 (C) / 97.7 (F) Weight: 162 lbs 07/19/2014 Blood Pressure 1: 126/78 Code: 8480-6 BMI: 29.7 Code: 31794-4 Heart Rate 1: 72 bpm Height: 5'2" Respiratory Rate: 20 bpm Temperature: 36 .8 (C) / 98.2 (F) Weight: 160 lbs 06/01/2014 Blood Pressure 1: 132/86 Code: 8480-6 BMI: 29.6 Code: 62693-5 Heart Rate 1: 72 bpm Height: 5'2" [...] 1: 122/80 Code: 8480-6 BMI: 29.6 Code: 48914-8 Heart Rate 1: 80 bpm Height: 5'2" Respiratory Rate: 20 bpm Temperature: 36 .8 (C) / 98.3 (F) Weight: 159 lbs 08/14/2013 Blood Pressure 1: 138/82 Code: 8480-6 BMI: 27.5 Code: 55165-5 Heart Rate 1: 66 bpm Height: 5'2" Respiratory Rate: 20 bpm Temperature: 36 .5 (C) / 97.7 (F) Weight: 148 lbs 08/03/2013 Blood Pressure 1: 126/82 Code: 8480-6 BMI: 29.1 Code: 78922-4 Heart Rate 1: 72 bpm Height: 5'1" Respiratory Rate: 20 bpm Temperature: 36 .6 (C) / 97.8 (F) Weight: 154 lbs 07/21/2013 Blood Pressure 1: 124/70 Code: 8480-6 BMI: 28.3 Code: 44636-4 Heart Rate 1: 64 bpm Height: 5'1" Respiratory Rate: 22 bpm Temperature: 36 .5 (C) / 97.7 (F) Weight: 150 lbs 06/12/2013 Blood Pressure 1: 124/78 Code: 8480-6 BMI: 28.6 Code: 81028-7 Heart Rate 1: 88 bpm Height: 5'2" Respiratory Rate: 20 bpm Temperature: 36 .9 (C) / 98.4 (F) Weight: 154 lbs 12/25/2012 Blood Pressure 1: 128/84 Code: 8480-6 BMI: 27.0 Code: 06941-1 Heart Rate 1: 76 bpm Height: 5'2" Respiratory Rate: 20 bpm Temperature: 36 .9 (C) / 98.4 (F) Weight: 145 lbs 10/30/2012 Blood Pressure 1: 122/68 Code: 8480-6 BMI: 28.8 Code: 27758-6 Heart Rate 1: 60 bpm Height: 5'2" Temperature: 36.9 (C) / 98.5 (F) Weight: 155 lbs 08/28/2012 Blood Pressure 1: 112/80 Code: 8480-6 BMI: 29.7 Code: 13993-8 Heart Rate 1: 72 bpm Height: 5'2" Respiratory Rate: 20 bpm Temperature: 36 .9 (C) / 98.5 (F) Weight: 160 lbs 05/27/2012 Blood Pressure 1: 128/80 Code: 8480-6 BMI: 28.4 Code: 87446-8 Heart Rate 1: 72 bpm Height: 5'2" Respiratory Rate: 20 bpm Temperature: 36 .8 (C) / 98.2 (F) Weight: 153 lbs 04/30/2012 Blood Pressure 1: 116/70 Code: 8480-6 BMI: 28.8 Code: 03255-5 Heart Rate 1: 84 bpm Height: 5'2" Respiratory Rate: 20 bpm Temperature: 36 .7 (C) / 98.1 (F) Weight: 155 lbs 02/18/2012 Blood Pressure 1: 118/64 Code: 8480-6 BMI: 28.4 Code: 35330-4 Heart Rate 1: 68 bpm Height: 5'2" Temperature: 36.3 (C) / 97.4 (F) Weight: 153 lbs 01/08/2012 Blood Pressure 1: 132/80 Code: 8480-6 BMI: 28.8 Code: 34801-7 Heart Rate 1: 76 bpm Height: 5'2" Respiratory Rate: 20 bpm Temperature: 36 .7 (C) / 98.1 (F) Weight: 155 lbs 10/19/2011 Blood Pressure 1: 102/72 Code: 8480-6 BMI: 27.9 Code: 75128-5 Heart Rate 1: 70 bpm Height: 5'2" Temperature: 36.9 (C) / 98.5 (F) Weight: 150 lbs 09/17/2011 Blood Pressure 1: 126/72 Code: 8480-6 BMI: 28.3 Code: 86248-4 Heart Rate 1: 84 bpm Height: 5'2" Respiratory Rate: 20 bpm Temperature: 36 .7 (C) / 98.1 (F) Weight: 152 lbs 07/05/2011 Blood Pressure 1: 102/68 Code: 8480-6 Heart Rate 1: 88 bpm Temperature: 36.7 (C) / 98.1 (F) Weight: 145 lbs 05/31/2011 Blood Pressure 1: 126/82 Code: 8480-6 BMI: 27.3 Code: 06877-3 Heart Rate 1: 80 bpm Height: 5'2" [...] Weight: 130 lbs 01/02/2010 BMI: 25.7 Code: 79694-2 Heart Rate 1: 84 bpm Height: 5 [...] metformin sore throat 10/19/2011 follow up 09/17/2011 [facility]--still on Omnicef sore throat 07/05/2011 [...] phlegm Encounters Encounter Performer Location Codes Date ([id number]) OFFICE/OUTPATIENT VISIT EST Diagnosis: Shingles[ICD10: B02.9] Almaz Carrasco [employer] CPT-4: 94413 12/03/2019 ([id number]) OFFICE/OUTPATIENT VISIT EST Diagnosis: Nasopharyngitis[ICD10: J00] Nikole WU S. O DINA [employer] CPT-4: 24755 08/18/2019 ([id number]) OFFICE/OUTPATIENT VISIT EST Diagnosis: Low back pain[ICD10: M54.5] Diagnosis: Personal history of urinary (tract) infections[ICD10: Z87.440] Nikole RYDERER [employer] CPT-4: 90492 05/25/2019 ([id number]) OFFICE/OUTPATIENT VISIT EST Diagnosis: Palpitations[ICD10: R00.2] Almaz Price OR JOJO [employer] CPT-4: 18693 05/06/2019 OFFICE/OUTPATIENT VISIT EST Diagnosis: Other infective otitis externa, right ear[ICD10: H60.391] Diagnosis: Acute serous otitis media, recurrent, right ear[ICD10: H65.04] Elisha ENRIQUEZ DO [facility] CPT-4: 61571 12/16/2018 ([id number]) NURSE/OUTPATIENT VISIT EST Diagnosis: Dysuria[ICD10: R30.0] Almaz ENRIQUEZ DO [facility] CPT-4: 05358 12/02/2018 ([id number]) OFFICE/OUTPATIENT VISIT EST Diagnosis: Palpitations[ICD10: R00.2] Diagnosis: Abnormal results of thyroid function studies[ICD10: R94.6] Almaz ENRIQUEZ DO [facility] CPT-4: 50726 09/09/2018 ([id number]) OFFICE/OUTPATIENT VISIT EST Diagnosis: Pain in right knee[ICD10: M25.561] Almaz ENRIQUZE DO [facility] CPT-4: 76465 08/28/2018 ([id number]) OFFICE/OUTPATIENT VISIT EST Diagnosis: Gastro-esophageal reflux disease without esophagitis[ICD10: K21.9] Almaz ENRIQUEZ DO [facility] CPT-4: 42573 08/18/2018 ([id number]) OFFICE/OUTPATIENT VISIT EST Diagnosis: Other polyuria[ICD10: R35.8] Almaz ENRIQUEZ DO [facility] CPT-4: 44065 10/21/2017 ([id number]) OFFICE/OUTPATIENT VISIT EST Diagnosis: Otalgia, left ear[ICD10: H92.02] Diagnosis: Left temporomandibular joint disorder, unspecified[ICD10: M26.602] Almaz ENRIQUEZ DO [facility] CPT-4: 06653 06/24/2017 OFFICE/OUTPATIENT VISIT EST Diagnosis: Insect bite (nonvenomous) of right upper arm, sequela[ICD10: S40.861S] Almaz ENRIQUEZ DO [facility] CPT-4: 39403 04/11/2017 ([id number]) OFFICE/OUTPATIENT VISIT EST Diagnosis: Other seasonal allergic rhinitis[ICD10: J30.2] Aracelis Mercado ALMAZ ENRIQUEZ [facility] CPT-4: 35497 01/18/2017 ([id number]) OFFICE/OUTPATIENT VISIT EST Diagnosis: Abnormal weight gain[ICD10: R63.5] Diagnosis: Tinea corporis[ICD10: B35.4] Almaz Zoe MAGANALINE Dee ENRIQUEZ DO [facility] CPT-4: 99113 11/26/2016 ([id number]) OFFICE/OUTPATIENT VISIT EST Diagnosis: Abnormal weight gain[ICD10: R63.5] Almaz KATHLEEN Dee ENRIQUEZ DO [facility] CPT-4: 30430 08/23/2016 ([id number]) OFFICE/OUTPATIENT VISIT EST Diagnosis: Pain in left knee[ICD10: M25.562] Aracelis Rogelio Villafana Dee ENRIQUEZ DO [facility] CPT-4: 90778 06/14/2016 OFFICE/OUTPATIENT VISIT EST Diagnosis: Other specified disorders of Eustachian tube, left ear[ICD10: H69.82] Radha ENRIQUEZ DO [facility] CPT-4: 90966 04/19/2016 ([id number]) OFFICE/OUTPATIENT VISIT EST Diagnosis: Other specified disorders of Eustachian tube, bilateral[ICD10: H69.83] Diagnosis: Otitis media, unspecified, right ear[ICD10: H66.91] Aracelis MAGANALINE Dee ENRIQUEZ DO [facility] CPT-4: 19847 04/10/2016 OFFICE/OUTPATIENT VISIT EST Diagnosis: Acute pharyngitis, unspecified[ICD10: J02.9] Radha MAGANALINE Dee ENRIQUEZ DO [facility] CPT-4: 81441 11/22/2015 ([id number]) OFFICE/OUTPATIENT VISIT EST Diagnosis: Encounter for general adult medical examination without abnormal findings[ICD10: Z00.00] Almaz Zoe MAGANALINE Dee ENRIQUEZ DO [facility] CPT-4: 35118 10/03/2015 ([id number]) OFFICE/OUTPATIENT VISIT EST Diagnosis: Myalgia[ICD10: M79.1] Diagnosis: Unspecified abdominal pain[ICD10: R10.9] Almaz Nathanpreeti WU BlancheKaz ZOE JONES [facility] CPT-4: 07538 08/01/2015 ([id number]) OFFICE/OUTPATIENT VISIT EST Diagnosis: Proctalgia[ICD9: 569.42] Diagnosis: Rectal bleeding[ICD9: 569.3] Almaz ENRIQUEZ [facility] CPT-4: 31777 06/28/2015 ([id number]) OFFICE/OUTPATIENT VISIT EST Diagnosis: Right calf pain[ICD9: 729.5] Za Jenn ALMAZ BlancheKaz ZOE JONES [facility] CPT-4: 78017 05/02/2015 ([id number]) OFFICE/OUTPATIENT VISIT EST Diagnosis: Flank pain[ICD9: 789.00] Diagnosis: MALAISE AND FATIGUE[ICD9: 780.79] Diagnosis: ABNORMAL WEIGHT GAIN[ICD9: 783.1] Almaz Nathanpreeti CALLAWAY Ledy ManciaKaz ZOE [facility] CPT-4: 90338 03/29/2015 ([id number]) OFFICE/OUTPATIENT VISIT EST Diagnosis: ALLERGIC RHINITIS[ICD9: 477.9] Almaz Nathanpreeti ALMAZ Blanche Kaz ZOE [facility] CPT-4: 39243 02/15/2015 ([id number]) OFFICE/OUTPATIENT VISIT EST Diagnosis: GERD[ICD9: 530.81] Almaz MAGANALINE BlancheKaz ZOE [facility] CPT-4: 31621 12/30/2014 ([id number]) OFFICE/OUTPATIENT VISIT EST Diagnosis: Tenosynovitis, de Quervain[ICD9: 727.04] Diagnosis: Paresthesia of hand[ICD9: 782.0] Almaz Nathanpreeti WU BlancheKaz ZOE [facility] CPT-4: 60991 09/30/2014 ([id number]) OFFICE/OUTPATIENT VISIT EST Diagnosis: ABDOMINAL PAIN[ICD9: 789.00] Diagnosis: GERD[ICD9: 530.81] Diagnosis: TREMOR NEC[ICD9: 333.1] Almazliv MAGANALINE BlancheKaz BRITNI GRAHAM [facility] CPT-4: 59557 07/19/2014 ([id number]) OFFICE/OUTPATIENT VISIT EST Diagnosis: PAIN, LOWER BACK[ICD9: 724.2] Diagnosis: SPASM OF MUSCLE[ICD9: 728.85] Almaz CALDERAQUELINE BlancheKaz ZOE [facility] CPT-4: 46531 06/01/2014 OFFICE/OUTPATIENT VISIT EST Diagnosis: TONSILLITIS, ACUTE[ICD9: 463] Diagnosis: STREPTOCOCCAL INFECTION GROUP A[ICD9: 041.01] Radha ENRIQUEZ [facility] CPT-4: 50614 12/25/2013 OFFICE/OUTPATIENT VISIT EST Diagnosis: DYSURIA[ICD9: 788.1] Radha ENRIQUEZ [facility] CPT-4: 25795 12/17/2013 ([id number]) OFFICE/OUTPATIENT VISIT EST Diagnosis: BRONCHITIS, ACUTE[ICD9: 466.0] Alamz ENRIQUEZ [facility] CPT-4: 52625 09/15/2013 OFFICE/OUTPATIENT VISIT EST Diagnosis: URI, ACUTE[ICD9: 465.9] Za Barajas ALMAZ RYDER [facility] CPT-4: 94017 08/14/2013 ([id number]) OFFICE/OUTPATIENT VISIT EST Diagnosis: PALPITATIONS[ICD9: 785.1] Almaz OWEN [facility] CPT-4: 59277 08/03/2013 OFFICE/OUTPATIENT VISIT EST Diagnosis: SINUSITIS, ACUTE[ICD9: 461.9] Diagnosis: Dysfunction of left Eustachian tube[ICD9: 381.81] Radha ENRIQUEZ [facility] CPT-4: 64755 07/21/2013 OFFICE/OUTPATIENT VISIT EST Diagnosis: Vaginal disorder[ICD9: 623.9] Za [facility]ajas [facility] 85707 06/12/2013 OFFICE/OUTPATIENT VISIT EST Diagnosis: HYPOGLYCEMIA NEC[ICD9: 251.1] Diagnosis: GERD[ICD9: 530.81] Almaz ENRIQUEZ [facility] CPT-4: 79332 12/25/2012 OFFICE/OUTPATIENT VISIT EST Diagnosis: COUGH[ICD9: 786.2] Diagnosis: PHARYNGITIS, ACUTE[ICD9: 462] Almaz ENRIQUEZ [facility] CPT-4: 93871 10/30/2012 OFFICE/OUTPATIENT VISIT EST Diagnosis: HYPOGLYCEMIA[ICD9: 251.2] Diagnosis: GERD[ICD9: 530.81] Diagnosis: Fibroid tumor[ICD9: 218.9] Almaz DIAZ JOJO [facility] CPT-4: 70483 08/28/2012 ([id number]) OFFICE/OUTPATIENT VISIT EST Diagnosis: Hyperglycemia[ICD9: 790.29] Almaz Mancia. O RENDER [facility] CPT-4: 27953 08/27/2012 ([id number]) OFFICE/OUTPATIENT VISIT EST Diagnosis: GERD[ICD9: 530.81] Almaz ENRIQUEZ [facility] CPT-4: 26929 05/27/2012 ([id number]) OFFICE/OUTPATIENT VISIT EST Diagnosis: HYPOGLYCEMIA NEC[ICD9: 251.1] Diagnosis: GERD[ICD9: 530.81] [facility] 36730 04/30/2012 ([id number]) OFFICE/OUTPATIENT VISIT EST Diagnosis: HYPOGLYCEMIA[ICD9: 251.2] Almaz NEWBERRY NDER [facility] CPT-4: 56846 04/29/2012 OFFICE/OUTPATIENT VISIT EST Diagnosis: CONJUNCTIVITIS NOS[ICD9: 372.30] Almaz ENRIQUEZ [facility] CPT-4: 00318 02/18/2012 OFFICE/OUTPATIENT VISIT EST Diagnosis: Hyperinsulinemia[ICD9: 251.1] Diagnosis: HYPOGLYCEMIA[ICD9: 251.2] Almaz NEWBERRY NDER [facility] CPT-4: 87392 01/08/2012 ([id number]) OFFICE/OUTPATIENT VISIT EST Diagnosis: Leg cramps[ICD9: 729.82] Almaz NEWBERRYN PAULIE [facility] CPT-4: 54445 12/25/2011 OFFICE/OUTPATIENT VISIT EST Diagnosis: PHARYNGITIS, ACUTE[ICD9: 462] Almaz NEWBERRYNDER [facility] CPT-4: 15729 10/19/2011 OFFICE/OUTPATIENT VISIT EST Diagnosis: Pyelonephritis[ICD9: 590.80] Diagnosis: Flank pain[ICD9: 789.00] Diagnosis: Recurrent UTI[ICD9: 599.0] Diagnosis: Thoracic back pain[ICD9: 724.1] Almaz ENRIQUEZ DO [facility] CPT-4: 55324 09/17/2011 OFFICE/OUTPATIENT VISIT EST Diagnosis: PHARYNGITIS, ACUTE[ICD9: 462] Almaz ENRIQUEZ DO [facility] CPT-4: 82885 07/05/2011 OFFICE/OUTPATIENT VISIT EST Diagnosis: GERD[ICD9: 530.81] Diagnosis: ABDOMINAL PAIN[ICD9: 789.00] Almaz ENRIQUEZ DO [facility] CPT-4: 31698 05/31/2011 OFFICE/OUTPATIENT VISIT EST Almaz NEWBERRY NDER [facility] CPT- 4: 64964 04/11/2011 ([id number]) OFFICE/OUTPATIENT VISIT EST Almaz LAFLEUR SKaz NEWBERRYNDER DO [facility] CPT-4: 49007 03/13/2011 ([id number]) OFFICE/OUTPATIENT VISIT EST Almaz RYDERER DO [facility] CPT-4: 71228 11/30/2010 ([id number]) OFFICE/OUTPATIENT VISIT, EST Almaz RYDERER [facility] CPT-4: 19343 11/02/2010 ([id number]) OFFICE/OUTPATIENT VISIT, EST Lucy Demetris ALMAZ NEWBERRYNDER [facility] CPT-4: 76809 07/25/2010 ([id number]) OFFICE/OUTPATIENT VISIT, EST Almaz ENRIQUEZ DO [facility] CPT-4: 97858 01/02/2010 Plan of Care Planned Activity Notes [...] ICD-10 : J00 08/18/2019 Appointment: Nikole Gabriel [address] [place] [address] ACUTE ILLNESS 08/18/2019 Visit Diagnosis Plan: Low back pain Discussion: urine dip neg. will send for culture. bactrim bid for 7 days to cover for infection due to patient's hx. instructed to push water. call office if no improvement tomorrow or to ED with worsening. ICD-9 : 724.2 ICD-10 : M54.5 05/25/2019 Appointment: Nikole Gabriel [address] [place] [address] ACUTE ILLNESS 05/25/2019 Visit Diagnosis Plan: Palpitations Discussion: Check C BC, iron, ferritin, TSH, Free T4, CMP Check 24hr holter Denies any energy drinks, supplements, etc. To ER if come on and persist with any associated dyspnea, dizziness, CP, etc. ICD-9 : 785.1 ICD-10 : R00.2 05/06/2019 Appointment: Almaz Enriquez WPtel: [facility] [address] ACUTE ILLNESS 05/06/2019 Visit Diagnosis Plan: [...] ICD-10 : H60.391 12/16/2018 Appointment: Elisha Leiva [address] [place] [address] ACUTE ILLNESS 12/16/2018 Patient Education: amoxicillin- [employer] Coupon [id number] [email or web address]/[email or web address] Completed 12/16/2018 Appointment: Almaz Enriquez WPtel: [address] [place] [address] 12/02/2018 Visit Diagnosis Plan: Palpitations Discussion: Discuss [...] : R94.6 09/09/2018 Appointment: Almaz Enriquez WPtel: [address] [place] [address] Hospital Follow Up 09/09/2018 Visit Diagnosis Plan: Pain in right knee Discussion: R dung to Dr. Pako Lowry and topical voltaren ICD-9 : 719.46 ICD-10 : M25.561 08/28/2018 Appointment: Almaz Enriquez WPtel: [address] [place] [address] ACUTE ILLNESS 08/28/2018 Care Plan: Referral Order SNOMED-CT : 30 [id number] Pending 08/28/2018 Visit Diagnosis Plan: Gastro-esophageal reflux disease without esophagitis Discussion: Left lower chest pain appears to be from GI etiology so will resume protonix 40mg po BID for next week and see if resolves, if improved then can go to protonix 40mg po daily ICD-9 : 530.81 ICD-10 : K21.9 08/18/2018 Appointment: Nikole Gabriel [address] [place] [address] ACUTE ILLNESS 08/18/2018 Patient Education: Patient Medication Summary Completed 05/13/2018 Care Plan: MAMMOGRAM SCREENING LOINC : 2 6347-5 Pending 05/13/2018 Appointment: Almaz Enriquez WPtel: [address] [place] [address] 10/21/2017 Patient Education: Patient Medication Summary Completed [...] : H92.02 06/24/2017 Appointment: Almaz Enriquez WPtel: [address] [place] [address] ACUTE ILLNESS 06/24/2017 Patient Education: Patient Medication Summary Completed 06/24/2017 Patient Education: Patient Medication Summary Completed 05/14/2017 Visit Diagnosis Plan: Insect bite (nonvenomous) of rig ht upper arm, sequela Discussion: Finish all abx Add Zyrtec 10mg daily for 10 days ICD-9 : 906.2 ICD-10 : S40.861S 04/11/2017 Appointment: Almaz Enriquez WPtel: [address] [place], [place] [phone] Follow UP 04/11/2017 Patient Education: Patient Medication Summary Completed 04/11/2017 Visit Diagnosis Plan: Other seasonal allergic rhinitis Discussion: Add benadryl at bedtime Nasal rinses, steroid nasal spray Vicks and humidifier Monitor for signs of infection Follow up PRN ICD-9 : 477.9 ICD-10 : J30.2 01/18/2017 Appointment: Aracelis Mercado [address] [place] [address] ACUTE ILLNESS 01/18/2017 Patient Education: Patient Medication Summary Completed 01/18/2017 Visit Diagnosis Plan: Abnormal weight gain Discussion: Long discussion about diet/exercise/lifestyle change--3month trial ICD-9 : 783.1 ICD-10 : R63.5 11/26/2016 Visit Diagnosis Plan: Tinea corporis Discussion: Ketoc onazole BID for 2 weeks Notify if persist or worsens ICD-9 : 110.5 ICD-10 : B35.4 11/26/2016 Appointment: Almaz Enriquez WPtel: [address] [place], [place] [address] 11/22 confirm~sl FOLLOW UP 11/26/2016 Patient Education: Patient Medication Summary Completed 11/26/2016 Appointment: Almaz Enriquez WPtel: [address] [place] [address] WEIGHT CHECK 10/25/2016 Patient Education: Patient Medication Summary Completed 10/25/2016 Appointment: Almaz Enriquez WPtel: [address] [place] [address] BP CHECK 09/21/2016 Patient Education: Patient Medication Summary Completed 09/21/2016 Visit Plan: Is working out routinely Bulmaro l do phenteramine 37.5mg Weight and BP check next 2 months then fwup in 3mos 08/23/2016 Appointment: Almaz Enriquez WPtel: [address] [place] [address] 08/22 confirmed~sl FOLLOW UP 08/23/2016 Patient Education: Patient Medication Summary Completed 08/23/2016 Patient Education: Patient Medication Summary Completed 06/22/2016 Care Plan: X-RAY EXAM OF KNEE 1 [place] 2 [place] : [address]-7 Pending 06/22/2016 Visit Plan: RICE and rx as above Reduce strain on knee OTC pain relievers if needed Knee sleeve Call in 7-10 days if not improving for xray orders 06/14/2016 Appointment: Aracelis Mercado [address] [place] [address] ACUTE ILLNESS 06/14/2016 Patient Education: Patient Medication Summary Completed 06/14/2016 Referral: Jatinder Ambrose WPtel: [address] Referral Appointment Requested 05/09/2016 Visit Plan: Attempted to use ET popper w ith minimal relief Fluticasone nasal spray - 2 sprays each nostril one time daily 04/19/2016 Appointment: Radha Botello WPtel: [address] [place] [address] 04/18 confirmed~sl ACUTE ILLNESS 04/19/2016 Patient Education: [...] Follow up PRN 04/10/2016 Appointment: Aracelis Mercado [address] [place] [address] ACUTE ILLNESS 04/10/2016 Patient Education: Patient Medication Summary Completed 04/10/2016 Visit Plan: Strep Screen - negative Geronimo mmending warm saline gargles and notify if symptoms worsen 11/22/2015 Appointment: Radha Botello WPtel: [address] [place] [address] ACUTE ILLNESS 11/22/2015 Patient Education: Patient Medication Summary Completed 11/22/2015 Appointment: Almaz Enriquez WPtel: [address] [place] [address] 10/03/2015 Patient Education: Patient Medication Summary Completed 10/03/2015 Appointment: Almaz Enriquez WPtel: [address] [place] [address] 08/01/2015 Patient Education: Patient Medication Summary Completed 08/01/2015 Visit Plan: Anusol HC supp for 2weeks Al ign daily for 2weeks If resolves then will observe as came on after recent GI bug but if persists or comes back will need colonoscopy 06/28/2015 Appointment: Almaz Enriquez WPtel: [address] [place] [address] ACUTE ILLNESS 06/28/2015 Patient Education: Patient Medication Summary Completed 06/28/2015 Appointment: Almaz Enriquez WPtel: [address] [place], [place] [phone] 05/27 vm cn FOLLOW UP 05/30/2015 Appointment: Almaz Enriquez WPtel: [address] [place], [place] [phone] ACUTE ILLNESS 05/16/2015 Visit Plan: Venous dopple of right leg o rdered (tomorrow 10am) Recommended daily EC ASA until results 05/02/2015 Appointment: Za Barajas WPtel: [address] [place], [place] [phone] ACUTE ILLNESS 05/02/2015 Patient Education: Patient Medication Summary Completed 05/02/2015 Visit Plan: Contrave starter pack Fwup i n 2mos 03/29/2015 Appointment: Almaz Enriquez WPtel: [address] [place] [address] ER Follow UP 03/29/2015 Patient Education: Patient Medication Summary Completed 03/29/2015 Visit Plan: Start Loratadine 10mg po BID Add flonase q HS 02/15/2015 Appointment: Almaz Enriquez WPtel: [address] [place] [address] ACUTE ILLNESS 02/15/2015 Patient Education: Patient Medication Summary Completed 02/15/2015 Visit Plan: Continue protonix and carafa te See GI for update EGD vs pH probe/etc. Discussed musculoskeletal etiology as well as patient does have some chest wall pain and thoracic pain 12/30/2014 Appointment: Almaz Enriquez WPtel: [address] [place], [place] [phone] ER Follow UP 12/30/2014 Patient Education: Patient Medication Summary Completed 12/30/2014 Referral: Garo Reddy [facility]el[facility] [phone] [id number] [facility] Dr Reddy office verifies ins they s chedule with patient directly 10/20/14 Per Patient - she cannot go to this consult because due to her work comp case she must see their preferred drKaz Perdomo 10/12/2014 Appointment: Almaz Enriquez WPtel: [address] [place], [place] [phone] ER Follow UP 09/30/2014 Patient Education: Patient Medication Summary Completed 09/30/2014 Visit Plan: List reglan as an allergy--t remor of thumb has improved since stopping Add carafate to protonix for next 2-4weeks If resolves will observe, if not will need updated EGD 07/19/2014 Appointment: Almaz Enriquez WPtel: [address] [place], [place] [phone] 07/16 also left message that payment is due E R Follow UP 07/19/2014 Patient Education: Patient Medication Summary Completed 07/19/2014 Visit Plan: Stretches, moist heat, topic al biofreeze Amrix 15mg q PM Celebrex 200mg po BID 06/01/2014 Appointment: Almaz Enriquez WPtel: [address] [place], [place] [phone] Patient will bring in/call in $50.00 payment on 06/08-LB ACUTE ILLNESS 06/01/2014 Patient Education: Patient Medication Summary Completed 06/01/2014 Appointment: Radha Botello WPtel: [address] [place], [place] [phone] [place] was in ER on 12/19/13 ACUTE ILLNESS 12/25/2013 Patient Education: Patient Medication Summary Completed 12/25/2013 Appointment: Radha Botello WPtel: [address] [place], [place] [phone] ACUTE ILLNESS 12/17/2013 Patient Education: Patient Medication Summary Completed 12/17/2013 Visit Plan: Supportive care. Rest, Fluid s, Tylenol/Motrin prn fever or bodyaches. Notify if worsening symptoms. Zitthromax 500mg daily for 1wk Tussionex 09/15/2013 Appointment: Almaz Enriquez WPtel: [phone] ACUTE ILLNESS 09/15/2013 Patient Education: Patient Medication Summary Completed 09/15/2013 Appointment: Za Barajas WPtel: [address] [place] [address] ACUTE ILLNESS 08/14/2013 Patient Education: Patient Medication Summary Completed 08/14/2013 Visit Plan: Await holter results Avoid d econgestants, caffeine Discussed likely secondary to recent illness, steroids, decongestants If persists will get ECHO 08/03/2013 Appointment: Almaz Enriquez WPtel: [address] [place] [address] ER Follow UP 08/03/2013 Patient Education: Patient Medication Summary Completed 08/03/2013 Appointment: Radha Botello WPtel: [address] [place] [address] ACUTE ILLNESS 07/21/2013 Patient Education: Patient Medication Summary Completed 07/21/2013 Appointment: Za Barajas WPtel: [address] [place] [address] ACUTE ILLNESS 06/12/2013 Patient Education: Patient Medication Summary Completed 06/12/2013 Appointment: Almaz Enriquez WPtel: [address] [place], [place] [address] US FOLLOW UP 12/25/2012 Patient Education: Patient Medication Summary Completed 12/25/2012 Visit Plan: Azithromycin and codeine/lonny af cough syrup. 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 Discussed notifying if symptoms worsen or persist. Fluids and comfort care. 10/30/2012 Appointment: Lucy Willson WPtel: [address] [place] [address] ACUTE ILLNESS 10/30/2012 Patient Education: Patient Medication Summary Completed 10/30/2012 Visit Plan: Continue metformin and all o ther meds Pt going for surgery for hysterectomy 08/28/2012 Appointment: Almaz Enriquez WPtel: [address] [place], [place] [phone] FOLLOW UP 08/28/2012 Patient Education: Patient Medication Summary Completed 08/28/2012 Appointment: Almaz Enriquez WPtel: [address] [place], [place] [phone] LAB 08/27/2012 Patient Education: Patient Medication Summary Completed 08/27/2012 Visit Plan: Continue carafate and proton ix Proceed with EGD 05/27/2012 Appointment: Almaz Enriquez WPtel: [address] [place], [place] [phone] [place] [address] Follow Up 05/27/2012 Patient Education: Patient Medication Summary Completed 05/27/2012 Visit Plan: Continue metformin and accuc hecks Restart Dexilant Check insulin level with CMP in 4mos 04/30/2012 Appointment: Almaz Enriquez WPtel: [address] [place] [address] FOLLOW UP 04/30/2012 Patient Education: Patient Medication Summary Completed 04/30/2012 Appointment: Almaz Enriquez WPtel: [address] [place], [place] [phone] 04/29/2012 Patient Education: Patient Medication Summary Completed 04/29/2012 Visit Plan: Pt. reports both of her mirna gillis have experienced pink eye recently and were successfully treated with Tobramycin. Pt. is given written RX for Polymyxin B opthalmic drops. Recommend follow up with Dr. Beltre. Discussed precautions to prevent spread. 02/18/2012 Appointment: Lucy Willson WPtel: [address] [place], [place] [phone] ACUTE ILLNESS 02/18/2012 Patient Education: Patient Medication Summary Completed 02/18/2012 Visit Plan: Long discussion about diet a nd exercise and eating 6 manny meals a day with protein Add daily metformin 250mg Restart MV with iron Glucometer to use prn 01/08/2012 Appointment: Almaz Enriquez WPtel: [address] [place], [place] [phone] FOLLOW UP 01/08/2012 Patient Education: Patient Medication Summary Completed 01/08/2012 Appointment: Almaz Enriquez WPtel: [address] [place] [address] 12/25/2011 Patient Education: Patient Medication Summary Completed 12/25/2011 Visit Plan: amoxicillin. Discussed comfo rt care and cold/icy fluids. Tylenol/motrin for pain. Pt. will notify if fever or worsening symptoms. Discussed completion of antibiotic regimen 10/19/2011 Appointment: Lucy Willson WPtel: [address] [place] [address] ACUTE ILLNESS 10/19/2011 Patient Education: Patient Medication Summary Completed 10/19/2011 Appointment: Almaz Enriquez WPtel: [address] [place] [address] Follow Up 09/17/2011 Patient Education: Patient Medication Summary Completed 09/17/2011 Visit Plan: New toothebrush in 5 daysSal ine nasal flushes prn. Tylenol/Motrin prn headache. Notify if persists/symptoms worsening. 07/05/2011 Appointment: Almaz Enriquez WPtel: [address] [place] [address] ACUTE ILLNESS 07/05/2011 Patient Education: Patient Medication Summary Completed 07/05/2011 Appointment: Almaz Enriquez WPtel: [address] [place] [address] ACUTE ILLNESS 05/31/2011 Patient Education: Patient Medication Summary Completed 05/31/2011 Appointment: Almaz Enriquez WPtel: [address] [place] [address] ACUTE ILLNESS 04/11/2011 Patient Education: Patient Medication Summary Completed 04/11/2011 Visit Plan: pt. will take Cefuroxime axe til. Will notify if symptoms worsen. 03/13/2011 Appointment: Lucy Willson WPtel: [address] [place], [place] [phone] [place] ACUTE ILLNESS 03/13/2011 Patient Education: Patient Medication Summary Completed 03/13/2011 Visit Plan: Continue brace for 2-4 more weeks May exercise to point of discomfort then stop 11/30/2010 Appointment: Almaz Enriquez WPtel: [address] [place] [address] FOLLOW UP 11/30/2010 Patient Education: Patient Medication Summary Completed 11/30/2010 Visit Plan: Continue aircast and add Vim ovo po BID 11/02/2010 Appointment: Almaz Enriquez WPtel: [address] [place] [address] ER Follow UP 11/02/2010 Patient Education: Patient Medication Summary Completed 11/02/2010 Appointment: Almaz Enriquez WPtel: [address] [place] [address] 08/01/2010 Patient Education: Patient Medication Summary Completed 08/01/2010 Appointment: Lucy Willson WPtel: [address] [place] [address] ACUTE ILLNESS 07/25/2010 Patient Education: Patient Medication Summary Completed 07/25/2010 Visit Plan: Supportive care. Rest, Fluid s, Tylenol/Motrin prn fever or bodyaches. Notify if worsening symptoms. 01/02/2010 Appointment: Almaz Enriquez WPtel: [address] [place] [address] ACUTE ILLNESS 01/02/2010 Patient Education: Patient Medication Summary Completed 01/02/2010 Referral: Cyrus Min WPtel: [address] [phone] [place] Referral Appointment Requested Referral: Cyrus Min WPtel: [address] [phone] [place] Referral Initiated Referral: Terrence Mehta WPtel: [address] [place] [address] [id number] Mehta will review and call patien to schedule Completed Referral: Judy [facility]asadtel[id number] [place] Referral Initiated Instructions Comment . Supportive [...] codeine/guiaf cough s yrup. 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
--- OUTSIDE RECORDS SUMMARY | 2020-04-20 21:03 | XMS REPORT | CCD ---
Author Author Fay Enriquez D.O., DO [facility] Address [address] [place] [address] Phone Care Team Providers Care Ophthalmologist Retina Specialist Name Role Phone Almaz Enriquez D.O., PP Unavailable CCM Unavailable Summary Purpose Interface Exchange Insurance Providers Payer name Policy type / Coverage type Covered green party ID Effective Begin Date Effective End Date Blue Cross Blue Shield Blue Cross/Blue Shield [id number] Unknown Family history Mother Diagnosis Age At Onset Diabetes mellitus Type 1 Unknown Social History Social History Element Codes Description Effective Dates Marital status Unknown 09/17/[address]: 627533311 Has never smoked or chewed tobacco 04/25/2011 [...] Instructions Protonix 40 mg tablet,delayed release RxNorm: 175901 1 TABLET(S ) PO QD 09/15/2019 12/13/2019 Active Protonix 40 mg tablet,delayed release RxNorm: 917226 1 Tablet(s ) PO QD 06/05/2019 09/02/2019 Inactive Bactrim DS 800 mg-160 mg tablet RxNorm: 471198 1 Tablet(s) PO BID 0 05/25/2019 05/31/2019 Inactive sftlvdpn-fascewihu-vbejoqtdy 3.5 mg/mL-10,000 unit/mL- 1 % ear solution RxNorm: 939688 4 Drop(s) otic (ear) TID 12/17/2018 12/16/2018 Inactive ilywspul-nbdlecjlh-rwzmrcctg 3.5 mg/mL-10,000 unit/mL- 1 % ear solution RxNorm: 663482 4 Drop(s) otic (ear) TID 12/17/2018 12/23/2018 Inactive rig ht ear ofloxacin 0.3 % ear drops RxNorm: 248045 5 Drop(s) otic (ear) BID 0 12/16/2018 12/16/2018 Inactive right ear amoxicillin 875 mg tablet RxNorm: 828396 1 Tablet(s) PO BID 019 12/25/2018 Inactive Diflucan 200 mg tablet RxNorm: 247410 1 Tablet(s) PO Q72H 12/16/2018 01/04/2019 Inactive Bactrim DS 800 mg-160 mg tablet RxNorm: 927452 1 Tablet(s) PO BID 0 12/02/2018 12/01/2018 Inactive Bactrim DS 800 mg-160 mg tablet RxNorm: 051097 1 Tablet(s) PO BID 0 12/02/2018 12/08/2018 Inactive Protonix 40 mg tablet,delayed release RxNorm: 896993 1 Tablet(s ) PO QD 09/23/2018 12/21/2018 Inactive Protonix 40 mg tablet,delayed release RxNorm: 030568 1 Tablet(s ) PO BID 09/18/2018 09/22/2018 Inactive Voltaren 1 % topical gel RxNorm: 873524 2 Gram(s) TOP QID to ri ght knee 08/28/2018 05/05/2019 Inactive Diflucan 150 mg tablet RxNorm: 377120 1 Tablet(s) PO Q7 2H Take one tablet today and repeat in 3 days if no improvement. 10/23/2017 08/17/2018 Inactive Diflucan 150 mg tablet RxNorm: 235894 1 Tablet(s) PO Q7 2H Take one tablet today and repeat in 3 days if no improvement. 10/04/2017 10/22/2017 Inactive ofloxacin 0.3 % ear drops RxNorm: 156345 4 Drop(s) OTIC TID for 1 week 06/24/2017 08/17/2018 Inactive Medrol (Scar) 4 mg tablets in a dose pack RxNorm: 300611 Take as directed 01/18/2017 04/10/2017 Inactive ketoconazole 2 % topical cream RxNorm: 735496 Applicati on TOP BID to lesion x 2 weeks 11/26/2016 01/17/2017 Inactive Protonix 40 mg tablet,delayed release RxNorm: 609896 1 TABLET(S ) PO QD 10/13/2016 05/05/2019 Inactive phentermine 37.5 mg tablet RxNorm: 101959 1 Tablet(s) PO QAM 201511/25/2016 Inactive Medrol (Scar) 4 mg tablets in a dose pack RxNorm: 365390 Take as directed 06/14/2016 08/22/2016 Inactive Diflucan 150 mg tablet RxNorm: 953487 1 Tablet(s) PO QD . May repeat in 2-3 days if needed. 04/10/2016 04/11/2016 Inactive amoxicillin 875 mg tablet RxNorm: 986115 1 Tablet(s) PO BID 016 04/18/2016 Inactive Medrol (Scar) 4 mg tablets in a dose pack RxNorm: 143360 Take as directed 04/10/2016 04/18/2016 Inactive Anusol-HC 25 mg suppository RxNorm: 0635428 1 Suppository RTL BID 0 06/28/2015 07/11/2015 Inactive Protonix 40 mg tablet,delayed release RxNorm: 440490 1 Tablet(s ) PO QD 04/27/2015 10/23/2015 Inactive Contrave 8 mg-90 mg tablet,extended release RxNorm: 9785212 1 Tablet(s) PO QAM for 1 week then 1 po BID for 1week then 1 in AM and 2 in PM for 1week then 2 po BID 03/29/2015 06/27/2015 Inactive [SAVINGS FOR UNI NSURED PATIENTS -- BIN:[id number], PCN: [id number], Group: [id number], ID# [id number], Process claim through 4INFO, for questions: . THIS IS NOT INSURANCE.] Flonase Allergy Relief 50 mcg/actuation nasal spray,suspensi on RxNorm: 2 Java NASAL QHS 02/15/2015 03/28/2015 Inactive Carafate 1 gram tablet RxNorm: 944597 1 Tablet(s) PO AC & HS 201406/13/2016 Inactive Diflucan 100 mg tablet RxNorm: 409593 1 Tablet(s) PO QD 09/30/2014 Inactive metformin ER 500 mg tablet,extended release 24hr RxNorm: 860 975 1/2 Tablet(s) PO QD 09/15/2014 12/29/2014 Inactive metformin ER 500 mg tablet,extended release 24hr RxNorm: 860 975 1/2 Tablet(s) PO QD 09/15/2014 09/14/2014 Inactive Carafate 1 gram tablet RxNorm: 984383 1 Tablet(s) PO AC & HS 201309/16/2014 Inactive Diflucan 100 mg tablet RxNorm: 899693 1 Tablet(s) PO QD 12/28/2013 Inactive amoxicillin 875 mg tablet RxNorm: 434167 1 Tablet(s) PO BID 014 01/03/2014 Inactive Protonix 40 mg tablet,delayed release RxNorm: 489989 1 Tablet(s ) PO QD 12/03/2013 07/25/2014 Inactive Zithromax 250 mg tablet RxNorm: 092724 2 Tablet(s) PO QD 09/15/2013 1 11/22/2012 Inactive Flagyl 500 mg tablet RxNorm: 526556 1 Tablet(s) PO Q12H 06/12/2013 Inactive Diflucan 100 mg tablet RxNorm: 760432 1 Tablet(s) PO QD 12/08/2012 Inactive Diflucan 100 mg tablet RxNorm: 968848 1 Tablet(s) PO QD 12/08/2012 Inactive azithromycin 250 mg tablet RxNorm: 600177 2 Tablet(s) PO QD ant ibiotic 10/30/2012 11/06/2012 Inactive Carafate 1 gram Tab RxNorm: 898681 1 Tablet(s) PO AC 05/27/201206/11 Inactive MetroCream 0.75 % Topical RxNorm: 730997 Application TOP BID 201106/11/2013 Inactive to face Protonix 40 mg Tab RxNorm: 135380 1 Tablet(s) PO QD 05/20/20122012 Inactive Dexilant 60 mg Capsule RxNorm: 211175 1 Capsule(s) PO QD 04/30/2012 0 05/26/2012 Inactive metformin ER 500 mg 24 hr Tab RxNorm: 688971 1 Tablet(s) PO QAM 10/29/2012 Inactive tobramycin 0.3 % Eye Drops RxNorm: 988818 1-2 Drop(s) O PH Q4H one to two drops in effected eye(s) every four hours for a maximum of 7 days. If no improvement in 1-2 days need eval 02/15/2012 02/19/2012 Inactive amoxicillin 875 mg tablet RxNorm: 608999 1 Tablet(s) PO BID 012 10/28/2011 Inactive Protonix 40 mg Tab RxNorm: 065126 1 Tablet(s) PO QD 04/11/20112010 Inactive cefuroxime axetil 500 mg Tab RxNorm: 828449 1 Tablet(s) PO BID 02/1303/22/2011 Inactive Ibuprofen 600 mg Tab RxNorm: 890243 1 Tablet(s) PO TID prn pain 06/24/2010 Inactive Levapak 750 mg Tablet RxNorm: 1 Tablet(s) PO QD 01/02/2010 0 Inactive Cortisporin otic (ear) RxNorm: 46202 otic (ear) No Start Date 019 Inactive Sprix 15.75 mg/spray Nasal Java RxNorm: 3892174 1 Java NASAL QID each nostril--for pain for 5 days No Start Date 01/07/2012 Inactive Children's Multivitamins with Iron chewable tablet RxNorm: 1 Tablet(s) PO QD No Start Date 08/17/2019 Inactive Promethazine-Codeine 6.25 mg-10 mg/5 mL Syrup RxNorm: 536275 1-2 Teaspoon(s) PO Q4H prn cough No Start Date 04/10/2011 Inactive metformin ER 500 mg 24 hr Tab RxNorm: 688920 1/2 Tablet(s) PO QAM N o Start Date 04/29/2012 Inactive metformin ER 500 mg 24 hr tablet,extended release RxNorm: 86 0975 1/2 Tablet(s) PO QD No Start Date 12/27/2012 Inactive Protonix 40 mg tablet,delayed release RxNorm: 310462 1 Tablet(s ) PO QD No Start Date 12/02/2013 Inactive Carafate 1 gram Tab RxNorm: 746399 1 Tablet(s) PO AC No Start Date Inactive Flonase 50 mcg/Actuation Nasal Java RxNorm: 3371825 1 Java JEROD AL BID No Start Date 04/10/2011 Inactive Protonix 40 mg tablet,delayed release RxNorm: 869391 1 Tablet(s ) PO BID No Start Date 12/29/2014 Inactive Protonix 40 mg Tab RxNorm: 526044 1 Tablet(s) PO QD No Start Date 04/2013 Inactive Dexilant 60 mg capsule, delayed release RxNorm: 114101 1 Capsul e(s) PO QD No Start Date 06/23/2017 Inactive Diflucan 150 mg tablet RxNorm: 416033 1 Tablet(s) PO Q7 2H Take one tablet today and repeat in 3 days if no improvement. No Start Date 10/03/2017 Inactive Protonix 40 mg tablet,delayed release RxNorm: 335262 1 Tablet(s ) PO QD No Start Date 04/26/2015 Inactive MetroCream 0.75 % Topical RxNorm: 053261 Application TOP BID No Sta rt Date 05/26/2012 Inactive to face Zithromax Z-Scar 250 mg Tab RxNorm: 158533 1 Tablet(s) PO QD No Star t Date 09/16/2011 Inactive as directed Protonix 40 mg tablet,delayed release RxNorm: 499457 1 Tablet(s ) PO BID No Start Date 09/17/2018 Inactive Medication Administered No Medication Administered data Immunizations No Immunization data Results Observation Observation Code Item Item Code Result Date [facility] Location THYROID STIMULATING HORMONE 76052 TSH 1.360 uIU/ML 10/03/2015 Unknown COMPREHENSIVE METABOLIC 14758 AST 12 U/L 2014 Unknown COMPREHENSIVE METABOLIC 94388 ALT 9 IU/L 2014 Unknown COMPREHENSIVE METABOLIC 62229 BUN 10 MG/DL 2014 Unknown COMPREHENSIVE METABOLIC 62923 ALBUMIN 4.3 GM/DL 2014 Unknown COMPREHENSIVE METABOLIC 09483 CHLORIDE 104 MMOL/L 10/03 Unknown COMPREHENSIVE METABOLIC 89253 BILI TOT 0.3 MG/DL 2014 Unknown COMPREHENSIVE METABOLIC 93929 ALK PHOS 34 U/L 2014 Unknown COMPREHENSIVE METABOLIC 98344 SODIUM 137 MMOL/L 10/03 Unknown COMPREHENSIVE METABOLIC 68199 CREATININE 0.77 MG/DL 09/14 Unknown COMPREHENSIVE METABOLIC 75752 CALCIUM 9.6 MG/DL 2014 Unknown COMPREHENSIVE METABOLIC 58588 POTASSIUM 4.1 MMOL/L 10/03 Unknown COMPREHENSIVE METABOLIC 63458 PROT TOT 7.1 GM/DL 2014 Unknown COMPREHENSIVE METABOLIC 14531 Glucose 92 MG/DL 2014 Unknown COMPREHENSIVE METABOLIC 41187 BICARB 27 MMOL/L 2014 Unknown COMPREHENSIVE METABOLIC 82574 ANION GAP 6 MEQ/L 2014 Unknown LIPID GROUP 60667 HDL TEST 52 MG/DL 10/03/2015 Unknown LIPID GROUP 77312 TRIG 78 MG/DL 10/03/2015 Unknown LIPID GROUP 31458 TEST LDL 114 MG/DL 10/03/2015 Unknown LIPID GROUP 03006 CHOL 182 MG/DL 10/03/2015 Unknown LIPID GROUP 05533 RCHOL/HDL 3.50 RATIO 10/03/2015 Unknow n LIPID GROUP 14189 NON-HDL CH 130 MG/DL 10/03/2015 Unknow n GFR CALC 2487947 GFR AA >60 ML/MIN 10/03/2015 Unknown GFR CALC 0845615 GFR NON-AA >60 ML/MIN 10/03/2015 Unknown COMPLETE BLOOD COUNT 7557714 WBC 4.9 10e9/L 10/03/20 15 Unknown COMPLETE BLOOD COUNT 3800558 RBC 4.49 10e12/L 2014 Unknown COMPLETE BLOOD COUNT 9268537 HGB 11.3 g/dL 5 Unknown COMPLETE BLOOD COUNT 8677858 HCT DET 34.7 % 5 Unknown COMPLETE BLOOD COUNT 2774157 MCV 77.3 fL 5 Unknown COMPLETE BLOOD COUNT 8116231 MCH 25.2 pg 5 Unknown COMPLETE BLOOD COUNT 9943686 MCHC 32.6 g/dL 5 Unknown COMPLETE BLOOD COUNT 5366966 PLT 314 10e9/L 10/03/20 15 Unknown COMPLETE BLOOD COUNT 1150966 MPV 10.4 fL 5 Unknown COMPLETE BLOOD COUNT 9650741 ALEXX % 41.0 % 5 Unknown COMPLETE BLOOD COUNT 0844357 LY % 47.7 % 5 Unknown COMPLETE BLOOD COUNT 7381418 MON % 8.4 % 5 Unknown COMPLETE BLOOD COUNT 9902630 EOS % 2.7 % 5 Unknown COMPLETE BLOOD COUNT 2405740 BASO % 0.2 % 5 Unknown COMPLETE BLOOD COUNT 4493137 RDW 14.5 % 5 Unknown COMPLETE BLOOD COUNT 4151858 ABS ALEXX 2.01 10e9/L 015 Unknown COMPLETE BLOOD COUNT 5891726 ABS LYMPH 2.34 10e9/L 015 Unknown COMPLETE BLOOD COUNT 9307769 ABS MONO 0.41 10e9/L 015 Unknown COMPLETE BLOOD COUNT 6531021 ABS EOS 0.13 10e9/L 015 Unknown COMPLETE BLOOD COUNT 3745571 ABS BASO 0.01 10e9/L 015 Unknown COMPLETE BLOOD COUNT 5826124 RDW-SD 39.6 fL 5 Unknown FREE T4 82216 FREE T4 1.08 NG/DL 10/03/2015 Unknown GFR CALC 0497701 GFR AA >60 ML/MIN 12/25/2012 Unknown GFR CALC 6842575 GFR NON-AA >60 ML/MIN 12/25/2012 Unknown INSULIN SERUM 08014 INSULIN 5.0 mU/L 12/25/2012 Unkno wn BASIC METABOLIC PANEL 99558 Glucose 82 MG/DL 12/26/19 13 Unknown BASIC METABOLIC PANEL 89139 CREATININE 0.83 MG/DL 2012 Unknown BASIC METABOLIC PANEL 72622 BUN 9 MG/DL 12/26/19 13 Unknown BASIC METABOLIC PANEL 95192 SODIUM 139 MMOL/L 013 Unknown BASIC METABOLIC PANEL 56635 BICARB 26 MMOL/L 12/26/19 13 Unknown BASIC METABOLIC PANEL 01699 POTASSIUM 4.3 MMOL/L 013 Unknown BASIC METABOLIC PANEL 93197 ANION GAP 8 MEQ/L 12/26/19 13 Unknown BASIC METABOLIC PANEL 84464 CHLORIDE 105 MMOL/L 013 Unknown BASIC METABOLIC PANEL 90888 CALCIUM 9.6 MG/DL 12/26/19 13 Unknown GFR CALC 5289733 GFR AA >60 ML/MIN 08/27/2012 Unknown GFR CALC 7722642 GFR NON-AA >60 ML/MIN 08/27/2012 Unknown COMPREHENSIVE METABOLIC 10992 AST 16 U/L 2011 Unknown COMPREHENSIVE METABOLIC 35839 ALT 11 IU/L 2011 Unknown COMPREHENSIVE METABOLIC 27941 BUN 9 MG/DL 2011 Unknown COMPREHENSIVE METABOLIC 43826 ALBUMIN 4.1 GM/DL 2011 Unknown COMPREHENSIVE METABOLIC 53387 CHLORIDE 106 MMOL/L 08/27 Unknown COMPREHENSIVE METABOLIC 52937 BILI TOT 0.2 MG/DL 2011 Unknown COMPREHENSIVE METABOLIC 47352 ALK PHOS 35 U/L 2011 Unknown COMPREHENSIVE METABOLIC 57018 SODIUM 137 MMOL/L 08/27 Unknown COMPREHENSIVE METABOLIC 91354 CREATININE 0.80 MG/DL 08/14 Unknown COMPREHENSIVE METABOLIC 60667 CALCIUM 9.2 MG/DL 2011 Unknown COMPREHENSIVE METABOLIC 47752 POTASSIUM 4.5 MMOL/L 08/27 Unknown COMPREHENSIVE METABOLIC 98538 PROT TOT 6.9 GM/DL 2011 Unknown COMPREHENSIVE METABOLIC 33721 Glucose 92 MG/DL 2011 Unknown COMPREHENSIVE METABOLIC 25226 BICARB 25 MMOL/L 2011 Unknown COMPREHENSIVE METABOLIC 37212 ANION GAP 6 MEQ/L 2011 Unknown INSULIN SERUM 97452 INSULIN 10.6 mU/L 08/27/2012 Unkno wn GFR CALC 4017306 GFR AA >60 ML/MIN 04/29/2012 Unknown GFR CALC 7976687 GFR NON-AA >60 ML/MIN 04/29/2012 Unknown GLYCOSYLATED HEMOGLOBIN TEST 17708 A1C HPLC 52242-0 5.6 % 0 04/29/2012 Unknown COMPREHENSIVE METABOLIC 37468 AST 14 U/L 2011 Unknown COMPREHENSIVE METABOLIC 93985 ALT 9 IU/L 2011 Unknown COMPREHENSIVE METABOLIC 90032 BUN 11 MG/DL 2011 Unknown COMPREHENSIVE METABOLIC 69728 ALBUMIN 4.4 GM/DL 2011 Unknown COMPREHENSIVE METABOLIC 04530 CHLORIDE 105 MMOL/L 04/29 Unknown COMPREHENSIVE METABOLIC 91093 BILI TOT 0.2 MG/DL 2011 Unknown COMPREHENSIVE METABOLIC 23279 ALK PHOS 36 U/L 2011 Unknown COMPREHENSIVE METABOLIC 77546 SODIUM 139 MMOL/L 04/29 Unknown COMPREHENSIVE METABOLIC 86861 CREATININE 0.80 MG/DL 04/13 Unknown COMPREHENSIVE METABOLIC 63472 CALCIUM 9.5 MG/DL 2011 Unknown COMPREHENSIVE METABOLIC 86763 POTASSIUM 4.4 MMOL/L 04/29 Unknown COMPREHENSIVE METABOLIC 56307 PROT TOT 6.6 GM/DL 2011 Unknown COMPREHENSIVE METABOLIC 30929 Glucose 81 MG/DL 2011 Unknown COMPREHENSIVE METABOLIC 64730 BICARB 26 MMOL/L 2011 Unknown COMPREHENSIVE METABOLIC 75951 ANION GAP 8 MEQ/L 2011 Unknown INSULIN SERUM 67875 INSULIN 28.2 mU/L 12/26/2011 Unkno wn COMPREHENSIVE METABOLIC 35255 AST 19 U/L 2011 Unknown COMPREHENSIVE METABOLIC 94770 ALT 15 IU/L 2011 Unknown COMPREHENSIVE METABOLIC 51626 BUN 8 MG/DL 2011 Unknown COMPREHENSIVE METABOLIC 19508 ALBUMIN 4.6 GM/DL 2011 Unknown COMPREHENSIVE METABOLIC 87851 CHLORIDE 105 MMOL/L 12/24 Unknown COMPREHENSIVE METABOLIC 92639 BILI TOT 0.4 MG/DL 2011 Unknown COMPREHENSIVE METABOLIC 08206 ALK PHOS 38 U/L 2011 Unknown COMPREHENSIVE METABOLIC 92775 SODIUM 141 MMOL/L 12/24 Unknown COMPREHENSIVE METABOLIC 24860 CREATININE 0.74 MG/DL 12/12 Unknown COMPREHENSIVE METABOLIC 38772 CALCIUM 9.4 MG/DL 2011 Unknown COMPREHENSIVE METABOLIC 75649 POTASSIUM 4.1 MMOL/L 12/24 Unknown COMPREHENSIVE METABOLIC 56395 PROT TOT 7.6 GM/DL 2011 Unknown COMPREHENSIVE METABOLIC 56088 Glucose 53 MG/DL 2011 Unknown COMPREHENSIVE METABOLIC 75922 BICARB 25 MMOL/L 2011 Unknown COMPREHENSIVE METABOLIC 34935 ANION GAP 11 MEQ/L 2011 Unknown COMPLETE BLOOD COUNT 12586 WBC 3.7 10e9/L 12/25/19 12 Unknown COMPLETE BLOOD COUNT 53090 RBC 4.53 10e12/L 2011 Unknown COMPLETE BLOOD COUNT 84304 HGB 11.4 g/dL 2 Unknown COMPLETE BLOOD COUNT 19262 HCT DET 35.4 % 2 Unknown COMPLETE BLOOD COUNT 50818 MCV 78.1 fL 2 Unknown COMPLETE BLOOD COUNT 88575 MCH 25.2 pg 2 Unknown COMPLETE BLOOD COUNT 93129 MCHC 32.2 g/dL 2 Unknown COMPLETE BLOOD COUNT 19533 PLT 327 10e9/L 12/25/19 12 Unknown COMPLETE BLOOD COUNT 09009 MPV 10.9 fL 2 Unknown COMPLETE BLOOD COUNT 62734 ALEXX % 30.9 % 2 Unknown COMPLETE BLOOD COUNT 45956 LY % 57.0 % 2 Unknown COMPLETE BLOOD COUNT 54340 MON % 9.1 % 2 Unknown COMPLETE BLOOD COUNT 14161 EOS % 2.7 % 2 Unknown COMPLETE BLOOD COUNT 71200 BASO % 0.3 % 2 Unknown COMPLETE BLOOD COUNT 26649 RDW 14.0 % 2 Unknown COMPLETE BLOOD COUNT 31014 ABS ALEXX 1.14 10e9/L 012 Unknown COMPLETE BLOOD COUNT 64180 ABS LYMPH 2.11 10e9/L 012 Unknown COMPLETE BLOOD COUNT 91576 ABS MONO 0.34 10e9/L 012 Unknown COMPLETE BLOOD COUNT 69948 ABS EOS 0.10 10e9/L 012 Unknown COMPLETE BLOOD COUNT 57352 ABS BASO 0.01 10e9/L 012 Unknown COMPLETE BLOOD COUNT 92313 RDW-SD 39.0 fL 2 Unknown GFR CALC 7810158 GFR AA >60 ML/MIN 12/25/2011 Unknown GFR CALC 5001684 GFR NON-AA >60 ML/MIN 12/25/2011 Unknown AMYLASE 45708 AMYLASE 63 IU/L 05/31/2011 Unknown GFR CALC 2576638 GFR AA >60 ML/MIN 05/31/2011 Unknown GFR CALC 5223927 GFR NON-AA >60 ML/MIN 05/31/2011 Unknown COMPLETE BLOOD COUNT 96431 WBC 5.0 10e9/L 05/31/20 11 Unknown COMPLETE BLOOD COUNT 72477 RBC 4.56 10e12/L 2010 Unknown COMPLETE BLOOD COUNT 21388 HGB 11.6 g/dL 1 Unknown COMPLETE BLOOD COUNT 10990 HCT DET 35.1 % 1 Unknown COMPLETE BLOOD COUNT 02514 MCV 77.0 fL 1 Unknown COMPLETE BLOOD COUNT 93296 MCH 25.4 pg 1 Unknown COMPLETE BLOOD COUNT 42793 MCHC 33.0 g/dL 1 Unknown COMPLETE BLOOD COUNT 69012 PLT 313 10e9/L 05/31/20 11 Unknown COMPLETE BLOOD COUNT 63130 MPV 11.0 fL 1 Unknown COMPLETE BLOOD COUNT 25499 ALEXX % 37.7 % 1 Unknown COMPLETE BLOOD COUNT 23476 LY % 49.1 % 1 Unknown COMPLETE BLOOD COUNT 76991 MON % 10.4 % 1 Unknown COMPLETE BLOOD COUNT 97194 EOS % 2.6 % 1 Unknown COMPLETE BLOOD COUNT 61061 BASO % 0.2 % 1 Unknown COMPLETE BLOOD COUNT 44865 RDW 13.7 % 1 Unknown COMPLETE BLOOD COUNT 84184 ABS ALEXX 1.89 10e9/L 011 Unknown COMPLETE BLOOD COUNT 45463 ABS LYMPH 2.46 10e9/L 011 Unknown COMPLETE BLOOD COUNT 01453 ABS MONO 0.52 10e9/L 011 Unknown COMPLETE BLOOD COUNT 15751 ABS EOS 0.13 10e9/L 011 Unknown COMPLETE BLOOD COUNT 19712 ABS BASO 0.01 10e9/L 011 Unknown COMPLETE BLOOD COUNT 60529 RDW-SD 37.4 fL 1 Unknown COMPREHENSIVE METABOLIC 75530 AST 16 U/L 2010 Unknown COMPREHENSIVE METABOLIC 09733 ALT 10 IU/L 2010 Unknown COMPREHENSIVE METABOLIC 62384 BUN 9 MG/DL 2010 Unknown COMPREHENSIVE METABOLIC 69065 ALBUMIN 4.4 GM/DL 2010 Unknown COMPREHENSIVE METABOLIC 06303 CHLORIDE 102 MMOL/L 05/31 Unknown COMPREHENSIVE METABOLIC 63695 BILI TOT 0.3 MG/DL 2010 Unknown COMPREHENSIVE METABOLIC 49360 ALK PHOS 36 U/L 2010 Unknown COMPREHENSIVE METABOLIC 16553 SODIUM 138 MMOL/L 05/31 Unknown COMPREHENSIVE METABOLIC 08058 CREATININE 0.72 MG/DL 05/14 Unknown COMPREHENSIVE METABOLIC 35430 CALCIUM 9.6 MG/DL 2010 Unknown COMPREHENSIVE METABOLIC 11981 POTASSIUM 3.9 MMOL/L 05/31 Unknown COMPREHENSIVE METABOLIC 35992 PROT TOT 7.2 GM/DL 2010 Unknown COMPREHENSIVE METABOLIC 55789 Glucose 82 MG/DL 2010 Unknown COMPREHENSIVE METABOLIC 54052 BICARB 29 MMOL/L 2010 Unknown COMPREHENSIVE METABOLIC 41206 ANION GAP 7 MEQ/L 2010 Unknown LIPASE 02598 LIPASE 11 IU/L 05/31/2011 Unknown Procedures Procedure Codes Date URINE CULTURE/ COLONY COUNT CPT-4: 63975 05/25/2019 STREP A ASSAY W/OPTIC CPT-4: 35784 12/16/2018 URINE CULTURE/ COLONY COUNT CPT-4: 50650 12/02/2018 URINALYSIS NONAUTO W/O SCOPE CPT-4: 05238 10/21/2017 URINE CULTURE/ COLONY COUNT CPT-4: 58975 10/21/2017 STREP A ASSAY W/OPTIC CPT-4: 68679 11/22/2015 ROUTINE VENIPUNCTURE CPT-4: 52629 10/03/2015 ASSAY OF FREE THYROXINE CPT-4: 12106 10/03/2015 ASSAY THYROID STIM HORMONE CPT-4: 01450 10/03/2015 COMPREHEN METABOLIC PANEL CPT-4: 10284 10/03/2015 COMPLETE CBC W/AUTO DIFF WBC CPT-4: 39081 10/03/2015 LIPID PANEL CPT-4: 93472 10/03/2015 URINALYSIS NONAUTO W/O SCOPE CPT-4: 30352 08/01/2015 URINE CULTURE/ COLONY COUNT CPT-4: 06085 08/01/2015 STREP A ASSAY W/OPTIC CPT-4: 15916 12/25/2013 URINALYSIS NONAUTO W/O SCOPE CPT-4: 88040 12/17/2013 THER/PROPH/DIAG INJ SC/IM CPT-4: 80112 07/21/2013 METHYLPREDNISOLONE 40 MG INJ CPT-4: J1030 07/21/2013 TRIAMCINOLONE ACET INJ NOS CPT-4: J3301 07/21/2013 C WET IN CPT-4: 19061 06/12/2013 ROUTINE VENIPUNCTURE CPT-4: 28112 12/25/2012 METABOLIC PANEL TOTAL CA CPT-4: 06235 12/25/2012 ASSAY OF INSULIN CPT-4: 72889 12/25/2012 ROUTINE VENIPUNCTURE CPT-4: 01716 08/27/2012 COMPREHEN METABOLIC PANEL CPT-4: 09656 08/27/2012 ASSAY OF INSULIN CPT-4: 58746 08/27/2012 ROUTINE VENIPUNCTURE CPT-4: 99123 04/29/2012 COMPREHEN METABOLIC PANEL CPT-4: 99203 04/29/2012 A1C GLYCOSYLATED HEMOGLOBIN TEST CPT-4: 00821 012 COMPLETE CBC W/AUTO DIFF WBC CPT-4: 79401 12/25/2011 COMPREHEN METABOLIC PANEL CPT-4: 60956 12/25/2011 ROUTINE VENIPUNCTURE CPT-4: 23796 12/25/2011 ASSAY OF INSULIN CPT-4: 86427 12/25/2011 THER/PROPH/DIAG INJ SC/IM CPT-4: 22609 09/17/2011 KETOROLAC TROMETHAMINE INJ CPT-4: J1885 09/17/2011 ROUTINE VENIPUNCTURE CPT-4: 11338 05/31/2011 COMPREHEN METABOLIC PANEL CPT-4: 35261 05/31/2011 COMPLETE CBC W/AUTO DIFF WBC CPT-4: 11648 05/31/2011 ASSAY OF LIPASE CPT-4: 41385 05/31/2011 ASSAY OF AMYLASE CPT-4: 24213 05/31/2011 URINALYSIS NONAUTO W/O SCOPE CPT-4: 53965 08/01/2010 URINE CULTURE/ COLONY COUNT CPT-4: 16029 08/01/2010 Vital Signs Date Vital 12/03/2019 Blood [...] 1: 136/86 Code: 8480-6 BMI: 33.5 Code: 82774-1 Heart Rate 1: 92 bpm Height: 5'2" Respiratory Rate: 20 bpm Temperature: 37 .1 (C) / 98.8 (F) Weight: 180 lbs 08/18/2018 Blood Pressure 1: 136/78 Code: 8480-6 Heart Rate 1: 91 bpm Respiratory Rate: 18 bpm SpO2: 99% Temperature: 36.4 (C) / 97.5 (F) We ight: 183 lbs 06/24/2017 Blood Pressure 1: 140/80 Code: 8480-6 BMI: 34.2 Code: 41708-3 Heart Rate 1: 76 bpm Height: 5'2" Respiratory Rate: 20 bpm Temperature: 36 .7 (C) / 98.0 (F) Weight: 184 lbs 04/11/2017 Blood Pressure 1: 132/86 Code: 8480-6 Heart Rate 1: 84 bpm Respiratory Rate: 20 bpm SpO2: 97% Temperature: 36.6 (C) / 97.8 (F) We ight: 181 lbs 01/18/2017 Blood Pressure 1: 122/80 Code: 8480-6 BMI: 31.6 Code: 34274-7 Heart Rate 1: 76 bpm Height: 5'2" Respiratory Rate: 20 bpm SpO2: 96% Tempera ture: 36.7 (C) / 98.1 (F) Weight: 170 lbs 11/26/2016 Blood Pressure 1: 128/80 Code: 8480-6 BMI: 31.0 Code: 16302-3 Heart Rate 1: 84 bpm Height: 5'2" Respiratory Rate: 20 bpm SpO2: 98% Tempera ture: 36.8 (C) / 98.2 (F) Weight: 167 lbs 10/25/2016 Blood Pressure 1: 118/76 Code: 8480-6 BMI: 30.9 Code: 60646-3 Heart Rate 1: 72 bpm Height: 5'2" Weight: 166 lbs 09/21/2016 Blood Pressure 1: 124/70 Code: 8480-6 BMI: 31.0 Code: 74554-6 Heart Rate 1: 80 bpm Height: 5'2" Weight: 167 lbs 08/23/2016 Blood Pressure 1: 138/82 Code: 8480-6 BMI: 31.6 Code: 84132-0 Heart Rate 1: 64 bpm Height: 5'2" [...] 1: 140/78 Code: 8480-6 BMI: 33.5 Code: 81348-7 Heart Rate 1: 82 bpm Height: 5'2" Respiratory Rate: 22 bpm SpO2: 97% Tempera ture: 36.3 (C) / 97.4 (F) Weight: 180 lbs 11/22/2015 Blood Pressure 1: 110/68 Code: 8480-6 BMI: 33.1 Code: 69517-8 Heart Rate 1: 80 bpm Height: 5'2" Respiratory Rate: 20 bpm Temperature: 36 .8 (C) / 98.3 (F) Weight: 178 lbs 06/28/2015 Blood Pressure 1: 124/70 Code: 8480-6 BMI: 31.0 Code: 67000-0 Heart Rate 1: 80 bpm Height: 5'2" Respiratory Rate: 20 bpm Temperature: 36 .8 (C) / 98.3 (F) Weight: 167 lbs 05/02/2015 Blood Pressure 1: 122/76 Code: 8480-6 BMI: 31.4 Code: 44118-9 Heart Rate 1: 78 bpm Height: 5'2" Respiratory Rate: 20 bpm Temperature: 36 .3 (C) / 97.4 (F) Weight: 169 lbs 03/29/2015 Blood Pressure 1: 126/78 Code: 8480-6 BMI: 30.9 Code: 10453-9 Heart Rate 1: 88 bpm Height: 5'2" Respiratory Rate: 20 bpm Temperature: 37 .1 (C) / 98.7 (F) Weight: 166 lbs 02/15/2015 Blood Pressure 1: 126/78 Code: 8480-6 BMI: 30.5 Code: 66565-0 Heart Rate 1: 76 bpm Height: 5'2" Respiratory Rate: 20 bpm Temperature: 36 .6 (C) / 97.8 (F) Weight: 164 lbs 12/30/2014 Blood Pressure 1: 118/84 Code: 8480-6 BMI: 30.1 Code: 66927-1 Heart Rate 1: 84 bpm Height: 5'2" Respiratory Rate: 20 bpm Temperature: 37 .0 (C) / 98.6 (F) Weight: 162 lbs 09/30/2014 Blood Pressure 1: 132/68 Code: 8480-6 BMI: 30.1 Code: 39479-9 Heart Rate 1: 84 bpm Height: 5'2" Respiratory Rate: 22 bpm Temperature: 36 .5 (C) / 97.7 (F) Weight: 162 lbs 07/19/2014 Blood Pressure 1: 126/78 Code: 8480-6 BMI: 29.7 Code: 74874-2 Heart Rate 1: 72 bpm Height: 5'2" Respiratory Rate: 20 bpm Temperature: 36 .8 (C) / 98.2 (F) Weight: 160 lbs 06/01/2014 Blood Pressure 1: 132/86 Code: 8480-6 BMI: 29.6 Code: 33727-3 Heart Rate 1: 72 bpm Height: 5'2" [...] 1: 122/80 Code: 8480-6 BMI: 29.6 Code: 91661-7 Heart Rate 1: 80 bpm Height: 5'2" Respiratory Rate: 20 bpm Temperature: 36 .8 (C) / 98.3 (F) Weight: 159 lbs 08/14/2013 Blood Pressure 1: 138/82 Code: 8480-6 BMI: 27.5 Code: 76704-1 Heart Rate 1: 66 bpm Height: 5'2" Respiratory Rate: 20 bpm Temperature: 36 .5 (C) / 97.7 (F) Weight: 148 lbs 08/03/2013 Blood Pressure 1: 126/82 Code: 8480-6 BMI: 29.1 Code: 02957-8 Heart Rate 1: 72 bpm Height: 5'1" Respiratory Rate: 20 bpm Temperature: 36 .6 (C) / 97.8 (F) Weight: 154 lbs 07/21/2013 Blood Pressure 1: 124/70 Code: 8480-6 BMI: 28.3 Code: 86805-0 Heart Rate 1: 64 bpm Height: 5'1" Respiratory Rate: 22 bpm Temperature: 36 .5 (C) / 97.7 (F) Weight: 150 lbs 06/12/2013 Blood Pressure 1: 124/78 Code: 8480-6 BMI: 28.6 Code: 33407-3 Heart Rate 1: 88 bpm Height: 5'2" Respiratory Rate: 20 bpm Temperature: 36 .9 (C) / 98.4 (F) Weight: 154 lbs 12/25/2012 Blood Pressure 1: 128/84 Code: 8480-6 BMI: 27.0 Code: 32712-0 Heart Rate 1: 76 bpm Height: 5'2" Respiratory Rate: 20 bpm Temperature: 36 .9 (C) / 98.4 (F) Weight: 145 lbs 10/30/2012 Blood Pressure 1: 122/68 Code: 8480-6 BMI: 28.8 Code: 24796-1 Heart Rate 1: 60 bpm Height: 5'2" Temperature: 36.9 (C) / 98.5 (F) Weight: 155 lbs 08/28/2012 Blood Pressure 1: 112/80 Code: 8480-6 BMI: 29.7 Code: 06091-4 Heart Rate 1: 72 bpm Height: 5'2" Respiratory Rate: 20 bpm Temperature: 36 .9 (C) / 98.5 (F) Weight: 160 lbs 05/27/2012 Blood Pressure 1: 128/80 Code: 8480-6 BMI: 28.4 Code: 78794-2 Heart Rate 1: 72 bpm Height: 5'2" Respiratory Rate: 20 bpm Temperature: 36 .8 (C) / 98.2 (F) Weight: 153 lbs 04/30/2012 Blood Pressure 1: 116/70 Code: 8480-6 BMI: 28.8 Code: 16085-9 Heart Rate 1: 84 bpm Height: 5'2" Respiratory Rate: 20 bpm Temperature: 36 .7 (C) / 98.1 (F) Weight: 155 lbs 02/18/2012 Blood Pressure 1: 118/64 Code: 8480-6 BMI: 28.4 Code: 80515-4 Heart Rate 1: 68 bpm Height: 5'2" Temperature: 36.3 (C) / 97.4 (F) Weight: 153 lbs 01/08/2012 Blood Pressure 1: 132/80 Code: 8480-6 BMI: 28.8 Code: 73781-0 Heart Rate 1: 76 bpm Height: 5'2" Respiratory Rate: 20 bpm Temperature: 36 .7 (C) / 98.1 (F) Weight: 155 lbs 10/19/2011 Blood Pressure 1: 102/72 Code: 8480-6 BMI: 27.9 Code: 34541-3 Heart Rate 1: 70 bpm Height: 5'2" Temperature: 36.9 (C) / 98.5 (F) Weight: 150 lbs 09/17/2011 Blood Pressure 1: 126/72 Code: 8480-6 BMI: 28.3 Code: 69828-8 Heart Rate 1: 84 bpm Height: 5'2" Respiratory Rate: 20 bpm Temperature: 36 .7 (C) / 98.1 (F) Weight: 152 lbs 07/05/2011 Blood Pressure 1: 102/68 Code: 8480-6 Heart Rate 1: 88 bpm Temperature: 36.7 (C) / 98.1 (F) Weight: 145 lbs 05/31/2011 Blood Pressure 1: 126/82 Code: 8480-6 BMI: 27.3 Code: 61026-6 Heart Rate 1: 80 bpm Height: 5'2" [...] Weight: 130 lbs 01/02/2010 BMI: 25.7 Code: 86979-5 Heart Rate 1: 84 bpm Height: 5 [...] metformin sore throat 10/19/2011 follow up 09/17/2011 [facility]--still on Omnicef sore throat 07/05/2011 gastroesophageal reflux [...] phlegm Encounters Encounter Performer Location Codes Date ([id number]) OFFICE/OUTPATIENT VISIT EST Diagnosis: Shingles[ICD10: B02.9] Almaz Carrasco [facility] CPT-4: 85091 12/03/2019 ([id number]) OFFICE/OUTPATIENT VISIT EST Diagnosis: Nasopharyngitis[ICD10: J00] Nikole WU S. O DINA [facility] CPT-4: 12938 08/18/2019 ([id number]) OFFICE/OUTPATIENT VISIT EST Diagnosis: Low back pain[ICD10: M54.5] Diagnosis: Personal history of urinary (tract) infections[ICD10: Z87.440] Nikole RYDERER [facility] CPT-4: 41129 05/25/2019 ([id number]) OFFICE/OUTPATIENT VISIT EST Diagnosis: Palpitations[ICD10: R00.2] Almaz Price OR JOJO [facility] CPT-4: 17839 05/06/2019 OFFICE/OUTPATIENT VISIT EST Diagnosis: Other infective otitis externa, right ear[ICD10: H60.391] Diagnosis: Acute serous otitis media, recurrent, right ear[ICD10: H65.04] Elisha ENRIQUEZ DO [facility] CPT-4: 50422 12/16/2018 ([id number]) NURSE/OUTPATIENT VISIT EST Diagnosis: Dysuria[ICD10: R30.0] Almaz ENRIQUEZ DO [facility] CPT-4: 30497 12/02/2018 ([id number]) OFFICE/OUTPATIENT VISIT EST Diagnosis: Palpitations[ICD10: R00.2] Diagnosis: Abnormal results of thyroid function studies[ICD10: R94.6] Almaz ENRIQUEZ DO [facility] CPT-4: 69073 09/09/2018 ([id number]) OFFICE/OUTPATIENT VISIT EST Diagnosis: Pain in right knee[ICD10: M25.561] Almaz ENRIQUEZ DO [facility] CPT-4: 79533 08/28/2018 ([id number]) OFFICE/OUTPATIENT VISIT EST Diagnosis: Gastro-esophageal reflux disease without esophagitis[ICD10: K21.9] Almaz ENRIQUEZ DO [facility] CPT-4: 80497 08/18/2018 ([id number]) OFFICE/OUTPATIENT VISIT EST Diagnosis: Other polyuria[ICD10: R35.8] Almaz ENRIQUEZ DO [facility] CPT-4: 73438 10/21/2017 ([id number]) OFFICE/OUTPATIENT VISIT EST Diagnosis: Otalgia, left ear[ICD10: H92.02] Diagnosis: Left temporomandibular joint disorder, unspecified[ICD10: M26.602] Almaz ENRIQUEZ DO [facility] CPT-4: 59083 06/24/2017 OFFICE/OUTPATIENT VISIT EST Diagnosis: Insect bite (nonvenomous) of right upper arm, sequela[ICD10: S40.861S] Almaz ENRIQUEZ DO [facility] CPT-4: 83641 04/11/2017 ([id number]) OFFICE/OUTPATIENT VISIT EST Diagnosis: Other seasonal allergic rhinitis[ICD10: J30.2] Aracelis Mercado ALMAZ ENRIQUEZ [facility] CPT-4: 58493 01/18/2017 ([id number]) OFFICE/OUTPATIENT VISIT EST Diagnosis: Abnormal weight gain[ICD10: R63.5] Diagnosis: Tinea corporis[ICD10: B35.4] Almaz Zoe MAGANALINE Dee ENRIQUEZ DO [facility] CPT-4: 58203 11/26/2016 ([id number]) OFFICE/OUTPATIENT VISIT EST Diagnosis: Abnormal weight gain[ICD10: R63.5] Almaz KATHLEEN Dee ENRIQUEZ DO [facility] CPT-4: 81579 08/23/2016 ([id number]) OFFICE/OUTPATIENT VISIT EST Diagnosis: Pain in left knee[ICD10: M25.562] Aracelis Rogelio Villafana Dee ENRIQUEZ [facility] CPT-4: 14710 06/14/2016 OFFICE/OUTPATIENT VISIT EST Diagnosis: Other specified disorders of Eustachian tube, left ear[ICD10: H69.82] Radha ENRIQUEZ DO [facility] CPT-4: 34841 04/19/2016 ([id number]) OFFICE/OUTPATIENT VISIT EST Diagnosis: Other specified disorders of Eustachian tube, bilateral[ICD10: H69.83] Diagnosis: Otitis media, unspecified, right ear[ICD10: H66.91] Aracelis MAGANALINE Dee ENRIQUEZ DO [facility] CPT-4: 13919 04/10/2016 OFFICE/OUTPATIENT VISIT EST Diagnosis: Acute pharyngitis, unspecified[ICD10: J02.9] Radha MAGANALINE Dee ENRIQUEZ DO [facility] CPT-4: 83404 11/22/2015 ([id number]) OFFICE/OUTPATIENT VISIT EST Diagnosis: Encounter for general adult medical examination without abnormal findings[ICD10: Z00.00] Almaz Zoe MAGANALINE Dee ENRIQUEZ DO [facility] CPT-4: 49971 10/03/2015 ([id number]) OFFICE/OUTPATIENT VISIT EST Diagnosis: Myalgia[ICD10: M79.1] Diagnosis: Unspecified abdominal pain[ICD10: R10.9] Almaz Nathanpreeti WU BlancheKaz ZOE JONES [facility] CPT-4: 69700 08/01/2015 ([id number]) OFFICE/OUTPATIENT VISIT EST Diagnosis: Proctalgia[ICD9: 569.42] Diagnosis: Rectal bleeding[ICD9: 569.3] Almaz ENRIQUEZ [facility] CPT-4: 96890 06/28/2015 ([id number]) OFFICE/OUTPATIENT VISIT EST Diagnosis: Right calf pain[ICD9: 729.5] Za Jenn ALMAZ BlancheKaz ZOE JONES [facility] CPT-4: 00387 05/02/2015 ([id number]) OFFICE/OUTPATIENT VISIT EST Diagnosis: Flank pain[ICD9: 789.00] Diagnosis: MALAISE AND FATIGUE[ICD9: 780.79] Diagnosis: ABNORMAL WEIGHT GAIN[ICD9: 783.1] Almaz Nathanpreeti CALLAWAY Ledy ManciaKaz Z[facility] CPT-4: 48837 03/29/2015 ([id number]) OFFICE/OUTPATIENT VISIT EST Diagnosis: ALLERGIC RHINITIS[ICD9: 477.9] Almaz Nathanpreeti ALMAZ Blanche Kaz [facility] CPT-4: 25023 02/15/2015 ([id number]) OFFICE/OUTPATIENT VISIT EST Diagnosis: GERD[ICD9: 530.81] Almaz MAGANALINE BlancheKaz [facility] CPT-4: 65730 12/30/2014 ([id number]) OFFICE/OUTPATIENT VISIT EST Diagnosis: Tenosynovitis, de Quervain[ICD9: 727.04] Diagnosis: Paresthesia of hand[ICD9: 782.0] Almaz Nathanpreeti WU BlancheKaz [facility] CPT-4: 82997 09/30/2014 ([id number]) OFFICE/OUTPATIENT VISIT EST Diagnosis: ABDOMINAL PAIN[ICD9: 789.00] Diagnosis: GERD[ICD9: 530.81] Diagnosis: TREMOR NEC[ICD9: 333.1] Almazliv MAGANALINE BlancheKaz BRITNI [facility] CPT-4: 53416 07/19/2014 ([id number]) OFFICE/OUTPATIENT VISIT EST Diagnosis: PAIN, LOWER BACK[ICD9: 724.2] Diagnosis: SPASM OF MUSCLE[ICD9: 728.85] Almaz CALDERAQUELINE BlancheKaz [facility] CPT-4: 46002 06/01/2014 OFFICE/OUTPATIENT VISIT EST Diagnosis: TONSILLITIS, ACUTE[ICD9: 463] Diagnosis: STREPTOCOCCAL INFECTION GROUP A[ICD9: 041.01] Radha ENRIQUEZ [facility] CPT-4: 19453 12/25/2013 OFFICE/OUTPATIENT VISIT EST Diagnosis: DYSURIA[ICD9: 788.1] Radha ENRIQUEZ [facility] CPT-4: 75843 12/17/2013 ([id number]) OFFICE/OUTPATIENT VISIT EST Diagnosis: BRONCHITIS, ACUTE[ICD9: 466.0] Almaz ENRIQUEZ [facility] CPT-4: 52623 09/15/2013 OFFICE/OUTPATIENT VISIT EST Diagnosis: URI, ACUTE[ICD9: 465.9] Za Barajas ALMAZ RYDER [facility] CPT-4: 72600 08/14/2013 ([id number]) OFFICE/OUTPATIENT VISIT EST Diagnosis: PALPITATIONS[ICD9: 785.1] Almaz OWEN [facility] CPT-4: 85801 08/03/2013 OFFICE/OUTPATIENT VISIT EST Diagnosis: SINUSITIS, ACUTE[ICD9: 461.9] Diagnosis: Dysfunction of left Eustachian tube[ICD9: 381.81] Radha ENRIQUEZ [facility] CPT-4: 23783 07/21/2013 OFFICE/OUTPATIENT VISIT EST Diagnosis: Vaginal disorder[ICD9: 623.9] Za [facility]ajas [facility] 23940 06/12/2013 OFFICE/OUTPATIENT VISIT EST Diagnosis: HYPOGLYCEMIA NEC[ICD9: 251.1] Diagnosis: GERD[ICD9: 530.81] Almaz ENRIQUEZ [facility] CPT-4: 80330 12/25/2012 OFFICE/OUTPATIENT VISIT EST Diagnosis: COUGH[ICD9: 786.2] Diagnosis: PHARYNGITIS, ACUTE[ICD9: 462] Almaz ENRIQUEZ [facility] CPT-4: 51144 10/30/2012 OFFICE/OUTPATIENT VISIT EST Diagnosis: HYPOGLYCEMIA[ICD9: 251.2] Diagnosis: GERD[ICD9: 530.81] Diagnosis: Fibroid tumor[ICD9: 218.9] Almaz DIAZ JOJO [facility] CPT-4: 02186 08/28/2012 ([id number]) OFFICE/OUTPATIENT VISIT EST Diagnosis: Hyperglycemia[ICD9: 790.29] Almaz Mancia. O RENDER [facility] CPT-4: 65515 08/27/2012 ([id number]) OFFICE/OUTPATIENT VISIT EST Diagnosis: GERD[ICD9: 530.81] Almaz ENRIQUEZ [facility] CPT-4: 03488 05/27/2012 ([id number]) OFFICE/OUTPATIENT VISIT EST Diagnosis: HYPOGLYCEMIA NEC[ICD9: 251.1] Diagnosis: GERD[ICD9: 530.81] [facility] 18638 04/30/2012 ([id number]) OFFICE/OUTPATIENT VISIT EST Diagnosis: HYPOGLYCEMIA[ICD9: 251.2] Almaz NEWBERRY NDER [facility] CPT-4: 65891 04/29/2012 OFFICE/OUTPATIENT VISIT EST Diagnosis: CONJUNCTIVITIS NOS[ICD9: 372.30] Almaz ENRIQUEZ [facility] CPT-4: 89877 02/18/2012 OFFICE/OUTPATIENT VISIT EST Diagnosis: Hyperinsulinemia[ICD9: 251.1] Diagnosis: HYPOGLYCEMIA[ICD9: 251.2] Almaz NEWBERRY NDER [facility] CPT-4: 00046 01/08/2012 ([id number]) OFFICE/OUTPATIENT VISIT EST Diagnosis: Leg cramps[ICD9: 729.82] Almaz NEWBERRYN PAULIE [facility] CPT-4: 81517 12/25/2011 OFFICE/OUTPATIENT VISIT EST Diagnosis: PHARYNGITIS, ACUTE[ICD9: 462] Almaz NEWBERRYNDER [facility] CPT-4: 50236 10/19/2011 OFFICE/OUTPATIENT VISIT EST Diagnosis: Pyelonephritis[ICD9: 590.80] Diagnosis: Flank pain[ICD9: 789.00] Diagnosis: Recurrent UTI[ICD9: 599.0] Diagnosis: Thoracic back pain[ICD9: 724.1] Almaz ENRIQUEZ DO [facility] CPT-4: 17397 09/17/2011 OFFICE/OUTPATIENT VISIT EST Diagnosis: PHARYNGITIS, ACUTE[ICD9: 462] Almaz ENRIQUEZ DO [facility] CPT-4: 24755 07/05/2011 OFFICE/OUTPATIENT VISIT EST Diagnosis: GERD[ICD9: 530.81] Diagnosis: ABDOMINAL PAIN[ICD9: 789.00] Almaz ENRIQUEZ DO [facility] CPT-4: 38994 05/31/2011 OFFICE/OUTPATIENT VISIT EST Almaz NEWBERRY NDER [facility] CPT- 4: 50017 04/11/2011 ([id number]) OFFICE/OUTPATIENT VISIT EST Almaz LAFLEUR SKaz NEWBERRYNDER DO [facility] CPT-4: 14178 03/13/2011 ([id number]) OFFICE/OUTPATIENT VISIT EST Almaz RYDERER DO [facility] CPT-4: 89921 11/30/2010 ([id number]) OFFICE/OUTPATIENT VISIT, EST Almaz RYDERER [facility] CPT-4: 40815 11/02/2010 ([id number]) OFFICE/OUTPATIENT VISIT, EST Lucy Demetris ALMAZ NEWBERRYNDER [facility] CPT-4: 75881 07/25/2010 ([id number]) OFFICE/OUTPATIENT VISIT, EST Almaz ENRIQUEZ DO [facility] CPT-4: 63615 01/02/2010 Plan of Care Planned Activity Notes [...] ICD-10 : J00 08/18/2019 Appointment: Nikole Gabriel [address] [place] [address] ACUTE ILLNESS 08/18/2019 Visit Diagnosis Plan: Low back pain Discussion: urine dip neg. will send for culture. bactrim bid for 7 days to cover for infection due to patient's hx. instructed to push water. call office if no improvement tomorrow or to ED with worsening. ICD-9 : 724.2 ICD-10 : M54.5 05/25/2019 Appointment: Nikole Gabriel [address] [place] [address] ACUTE ILLNESS 05/25/2019 Visit Diagnosis Plan: Palpitations Discussion: Check C BC, iron, ferritin, TSH, Free T4, CMP Check 24hr holter Denies any energy drinks, supplements, etc. To ER if come on and persist with any associated dyspnea, dizziness, CP, etc. ICD-9 : 785.1 ICD-10 : R00.2 05/06/2019 Appointment: Almaz Enriquez WPtel: [facility] [address] ACUTE ILLNESS 05/06/2019 Visit Diagnosis Plan: [...] ICD-10 : H60.391 12/16/2018 Appointment: Elisha Leiva [address] [place] [address] ACUTE ILLNESS 12/16/2018 Patient Education: amoxicillin- OptimizeRX Coupon [id number] [email or web address]/[email or web address] Completed 12/16/2018 Appointment: Almaz Enriquez WPtel: [address] [place] [address] 12/02/2018 Visit Diagnosis Plan: Palpitations Discussion: Discuss [...] : R94.6 09/09/2018 Appointment: Almaz Enriquez WPtel: [address] [place] [address] Hospital Follow Up 09/09/2018 Visit Diagnosis Plan: Pain in right knee Discussion: R dung to Dr. Pako Lowry and topical voltaren ICD-9 : 719.46 ICD-10 : M25.561 08/28/2018 Appointment: Almaz Enriquez WPtel: [address] [place] [address] ACUTE ILLNESS 08/28/2018 Care Plan: Referral Order SNOMED-CT : [id number] Pending 08/28/2018 Visit Diagnosis Plan: Gastro-esophageal reflux disease without esophagitis Discussion: Left lower chest pain appears to be from GI etiology so will resume protonix 40mg po BID for next week and see if resolves, if improved then can go to protonix 40mg po daily ICD-9 : 530.81 ICD-10 : K21.9 08/18/2018 Appointment: Nikole Gabriel [address] [place] [address] ACUTE ILLNESS 08/18/2018 Patient Education: Patient Medication Summary Completed 05/13/2018 Care Plan: MAMMOGRAM SCREENING LOINC : 2 6347-5 Pending 05/13/2018 Appointment: Almaz Enriquez WPtel: [address] [place] [address] 10/21/2017 Patient Education: Patient Medication Summary Completed [...] : H92.02 06/24/2017 Appointment: Almaz Enriquez WPtel: [address] [place] [address] ACUTE ILLNESS 06/24/2017 Patient Education: Patient Medication Summary Completed 06/24/2017 Patient Education: Patient Medication Summary Completed 05/14/2017 Visit Diagnosis Plan: Insect bite (nonvenomous) of rig ht upper arm, sequela Discussion: Finish all abx Add Zyrtec 10mg daily for 10 days ICD-9 : 906.2 ICD-10 : S40.861S 04/11/2017 Appointment: Almaz Enriquez WPtel: [address] [place], [place] [phone] ER Follow UP 04/11/2017 Patient Education: Patient Medication Summary Completed 04/11/2017 Visit Diagnosis Plan: Other seasonal allergic rhinitis Discussion: Add benadryl at bedtime Nasal rinses, steroid nasal spray Vicks and humidifier Monitor for signs of infection Follow up PRN ICD-9 : 477.9 ICD-10 : J30.2 01/18/2017 Appointment: Aracelis Mercado [address] [place] [address] ACUTE ILLNESS 01/18/2017 Patient Education: Patient Medication Summary Completed 01/18/2017 Visit Diagnosis Plan: Abnormal weight gain Discussion: Long discussion about diet/exercise/lifestyle change--3month trial ICD-9 : 783.1 ICD-10 : R63.5 11/26/2016 Visit Diagnosis Plan: Tinea corporis Discussion: Ketoc onazole BID for 2 weeks Notify if persist or worsens ICD-9 : 110.5 ICD-10 : B35.4 11/26/2016 Appointment: Almaz Enriquez WPtel: [address] [place], [place] [address] 11/22 confirm~sl FOLLOW UP 11/26/2016 Patient Education: Patient Medication Summary Completed 11/26/2016 Appointment: Almaz Enriquez WPtel: [address] [place] [address] WEIGHT CHECK 10/25/2016 Patient Education: Patient Medication Summary Completed 10/25/2016 Appointment: Almaz Enriquez WPtel: [address] [place] [address] BP CHECK 09/21/2016 Patient Education: Patient Medication Summary Completed 09/21/2016 Visit Plan: Is working out routinely Bulmaro l do phenteramine 37.5mg Weight and BP check next 2 months then fwup in 3mos 08/23/2016 Appointment: Almaz Enriquez WPtel: [address] [place] [address] 08/22 confirmed~sl FOLLOW UP 08/23/2016 Patient Education: Patient Medication Summary Completed 08/23/2016 Patient Education: Patient Medication Summary Completed 06/22/2016 Care Plan: X-RAY EXAM OF KNEE 1 OR 2 [place] : 56458-0 Pending 06/22/2016 Visit Plan: RICE and rx as above Reduce strain on knee OTC pain relievers if needed Knee sleeve Call in 7-10 days if not improving for xray orders 06/14/2016 Appointment: Aracelis Mercado [address] [place] [address] ACUTE ILLNESS 06/14/2016 Patient Education: Patient Medication Summary Completed 06/14/2016 Referral: Jatinder Ambrose WPtel: [address] Referral Appointment Requested 05/09/2016 Visit Plan: Attempted to use ET popper w ith minimal relief Fluticasone nasal spray - 2 sprays each nostril one time daily 04/19/2016 Appointment: Radha Botello WPtel: [address] [place] [address] 04/18 confirmed~sl ACUTE ILLNESS 04/19/2016 Patient Education: [...] Follow up PRN 04/10/2016 Appointment: Aracelis Mercado [address] [place] [address] ACUTE ILLNESS 04/10/2016 Patient Education: Patient Medication Summary Completed 04/10/2016 Visit Plan: Strep Screen - negative Geronimo mmending warm saline gargles and notify if symptoms worsen 11/22/2015 Appointment: Radha Botello WPtel: [address] [place] [address] ACUTE ILLNESS 11/22/2015 Patient Education: Patient Medication Summary Completed 11/22/2015 Appointment: Almaz Enriquez WPtel: [address] [place] [address] 10/03/2015 Patient Education: Patient Medication Summary Completed 10/03/2015 Appointment: Almaz Enriquez WPtel: [address] [place] [address] 08/01/2015 Patient Education: Patient Medication Summary Completed 08/01/2015 Visit Plan: Anusol HC supp for 2weeks Al ign daily for 2weeks If resolves then will observe as came on after recent GI bug but if persists or comes back will need colonoscopy 06/28/2015 Appointment: Almaz Enriquez WPtel: [address] [place] [address] ACUTE ILLNESS 06/28/2015 Patient Education: Patient Medication Summary Completed 06/28/2015 Appointment: Almaz Enriquez WPtel: [address] [place], [place] [phone] 05/27 vm cn FOLLOW UP 05/30/2015 Appointment: Almaz Enriquez WPtel: [address] [place], [place] [phone] ACUTE ILLNESS 05/16/2015 Visit Plan: Venous dopple of right leg o rdered (tomorrow 10am) Recommended daily EC ASA until results 05/02/2015 Appointment: Za Barajas WPtel: [address] [place], [place] [address] ACUTE ILLNESS 05/02/2015 Patient Education: Patient Medication Summary Completed 05/02/2015 Visit Plan: Contrave starter pack Fwup i n 2mos 03/29/2015 Appointment: Almaz Enriquez WPtel: [address] [place] [address] ER Follow UP 03/29/2015 Patient Education: Patient Medication Summary Completed 03/29/2015 Visit Plan: Start Loratadine 10mg po BID Add flonase q HS 02/15/2015 Appointment: Almaz Enriquez WPtel: [address] [place] [address] ACUTE ILLNESS 02/15/2015 Patient Education: Patient Medication Summary Completed 02/15/2015 Visit Plan: Continue protonix and carafa te See GI for update EGD vs pH probe/etc. Discussed musculoskeletal etiology as well as patient does have some chest wall pain and thoracic pain 12/30/2014 Appointment: Almaz Enriquez WPtel: [address] [place], [place] [phone] ER Follow UP 12/30/2014 Patient Education: Patient Medication Summary Completed 12/30/2014 Referral: Garo Reddy [facility]el[facility] [phone] [id number] Dr Reddy office verifies ins they s chedule with patient directly 10/20/14 Per Patient - she cannot go to this consult because due to her work comp case she must see their preferred drKaz Perdomo 10/12/2014 Appointment: Almaz Enriquez WPtel: [address] [place], [place] [phone] ER Follow UP 09/30/2014 Patient Education: Patient Medication Summary Completed 09/30/2014 Visit Plan: List reglan as an allergy--t remor of thumb has improved since stopping Add carafate to protonix for next 2-4weeks If resolves will observe, if not will need updated EGD 07/19/2014 Appointment: Almaz Enriquez WPtel: [address] [place], [place] [phone] 07/16 also left message that payment is due E R Follow UP 07/19/2014 Patient Education: Patient Medication Summary Completed 07/19/2014 Visit Plan: Stretches, moist heat, topic al biofreeze Amrix 15mg q PM Celebrex 200mg po BID 06/01/2014 Appointment: Almaz Enriquez WPtel: [address] [place], [place] [phone] Patient will bring in/call in $50.00 payment on 06/08-LB ACUTE ILLNESS 06/01/2014 Patient Education: Patient Medication Summary Completed 06/01/2014 Appointment: Radha Botello WPtel: [address] [place], [place] [id number] [place] was in ER on 12/19/13 ACUTE ILLNESS 12/25/2013 Patient Education: Patient Medication Summary Completed 12/25/2013 Appointment: Radha Botello WPtel: [address] [place], [place] [id number] ACUTE ILLNESS 12/17/2013 Patient Education: Patient Medication Summary Completed 12/17/2013 Visit Plan: Supportive care. Rest, Fluid s, Tylenol/Motrin prn fever or bodyaches. Notify if worsening symptoms. Zitthromax 500mg daily for 1wk Tussionex 09/15/2013 Appointment: Almaz Enriquez WPtel: [phone] ACUTE ILLNESS 09/15/2013 Patient Education: Patient Medication Summary Completed 09/15/2013 Appointment: Za Barajas WPtel: [address] [place] [address] ACUTE ILLNESS 08/14/2013 Patient Education: Patient Medication Summary Completed 08/14/2013 Visit Plan: Await holter results Avoid d econgestants, caffeine Discussed likely secondary to recent illness, steroids, decongestants If persists will get ECHO 08/03/2013 Appointment: Almaz Enriquez WPtel: [address] [place] [address] ER Follow UP 08/03/2013 Patient Education: Patient Medication Summary Completed 08/03/2013 Appointment: Radha Botello WPtel: [address] [place] [address] ACUTE ILLNESS 07/21/2013 Patient Education: Patient Medication Summary Completed 07/21/2013 Appointment: Za Barajas WPtel: [address] [place] [address] ACUTE ILLNESS 06/12/2013 Patient Education: Patient Medication Summary Completed 06/12/2013 Appointment: Almaz Enriquez WPtel: [address] [place], [place] [phone] [place] FOLLOW UP 12/25/2012 Patient Education: Patient Medication Summary Completed 12/25/2012 Visit Plan: Azithromycin and codeine/lnony af cough syrup. 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 Discussed notifying if symptoms worsen or persist. Fluids and comfort care. 10/30/2012 Appointment: Lucy Willson WPtel: [address] [place] [address] ACUTE ILLNESS 10/30/2012 Patient Education: Patient Medication Summary Completed 10/30/2012 Visit Plan: Continue metformin and all o ther meds Pt going for surgery for hysterectomy 08/28/2012 Appointment: Almaz Enriquez WPtel: [address] [place], [place] [phone] FOLLOW UP 08/28/2012 Patient Education: Patient Medication Summary Completed 08/28/2012 Appointment: Almaz Enriquez WPtel: [address] [place], [place] [phone] LAB 08/27/2012 Patient Education: Patient Medication Summary Completed 08/27/2012 Visit Plan: Continue carafate and proton ix Proceed with EGD 05/27/2012 Appointment: Almaz Enriquez WPtel: [address] [place], [place] [phone] [place] [address] Follow Up 05/27/2012 Patient Education: Patient Medication Summary Completed 05/27/2012 Visit Plan: Continue metformin and accuc hecks Restart Dexilant Check insulin level with CMP in 4mos 04/30/2012 Appointment: Almaz Enriquez WPtel: [address] [place] [address] FOLLOW UP 04/30/2012 Patient Education: Patient Medication Summary Completed 04/30/2012 Appointment: Almaz Enriquez WPtel: [address] [place], [place] [phone] 04/29/2012 Patient Education: Patient Medication Summary Completed 04/29/2012 Visit Plan: Pt. reports both of her mirna gillis have experienced pink eye recently and were successfully treated with Tobramycin. Pt. is given written RX for Polymyxin B opthalmic drops. Recommend follow up with Dr. Beltre. Discussed precautions to prevent spread. 02/18/2012 Appointment: Lucy Willson WPtel: [address] [place], [place] [phone] ACUTE ILL[facility] 02/18/2012 Patient Education: Patient Medication Summary Completed 02/18/2012 Visit Plan: Long discussion about diet a nd exercise and eating 6 manny meals a day with protein Add daily metformin 250mg Restart MV with iron Glucometer to use prn 01/08/2012 Appointment: Almaz Enriquez WPtel: [address] [place], [place] [phone] FOLLOW UP 01/08/2012 Patient Education: Patient Medication Summary Completed 01/08/2012 Appointment: Almaz Enriquez WPtel: [address] [place] [address] 12/25/2011 Patient Education: Patient Medication Summary Completed 12/25/2011 Visit Plan: amoxicillin. Discussed comfo rt care and cold/icy fluids. Tylenol/motrin for pain. Pt. will notify if fever or worsening symptoms. Discussed completion of antibiotic regimen 10/19/2011 Appointment: Lucy Willson WPtel: [address] [place] [address] ACUTE ILLNESS 10/19/2011 Patient Education: Patient Medication Summary Completed 10/19/2011 Appointment: Almaz Enriquez WPtel: [address] [place] [address] Follow Up 09/17/2011 Patient Education: Patient Medication Summary Completed 09/17/2011 Visit Plan: New toothebrush in 5 daysSal ine nasal flushes prn. Tylenol/Motrin prn headache. Notify if persists/symptoms worsening. 07/05/2011 Appointment: Almaz Enriquez WPtel: [address] [place] [address] ACUTE ILLNESS 07/05/2011 Patient Education: Patient Medication Summary Completed 07/05/2011 Appointment: Almaz Enriquez WPtel: [address] [place] [address] ACUTE ILLNESS 05/31/2011 Patient Education: Patient Medication Summary Completed 05/31/2011 Appointment: Almaz Enriquez WPtel: [address] [place] [address] ACUTE ILLNESS 04/11/2011 Patient Education: Patient Medication Summary Completed 04/11/2011 Visit Plan: pt. will take Cefuroxime axe til. Will notify if symptoms worsen. 03/13/2011 Appointment: Lucy Willson WPtel: [address] [place], [place] [phone] [place] ACUTE ILLNESS 03/13/2011 Patient Education: Patient Medication Summary Completed 03/13/2011 Visit Plan: Continue brace for 2-4 more weeks May exercise to point of discomfort then stop 11/30/2010 Appointment: Almaz Enriquez WPtel: [address] [place] [address] FOLLOW UP 11/30/2010 Patient Education: Patient Medication Summary Completed 11/30/2010 Visit Plan: Continue aircast and add Vim ovo po BID 11/02/2010 Appointment: Almaz Enriquez WPtel: [address] [place] [address] ER Follow UP 11/02/2010 Patient Education: Patient Medication Summary Completed 11/02/2010 Appointment: Almza Enriquez WPtel: [address] [place] [address] 08/01/2010 Patient Education: Patient Medication Summary Completed 08/01/2010 Appointment: Lucy Willson WPtel: [address] [place] [address] ACUTE ILLNESS 07/25/2010 Patient Education: Patient Medication Summary Completed 07/25/2010 Visit Plan: Supportive care. Rest, Fluid s, Tylenol/Motrin prn fever or bodyaches. Notify if worsening symptoms. 01/02/2010 Appointment: Almaz Enriquez WPtel: [address] [place] [address] ACUTE ILLNESS 01/02/2010 Patient Education: Patient Medication Summary Completed 01/02/2010 Referral: Cyrus Min WPtel: [address] [address] [place] Referral Appointment Requested Referral: Cyrus Min WPtel: [address] [address] [place] Referral Initiated Referral: Terrence Mehta WPtel: [address] [place] [address] [id number] Mehta will review and call patien to schedule Completed Referral: Judy Prasadtel: [facility] [id number] [place] Referral Initiated Instructions Comment . Supportive [...] codeine/guiaf cough s yrup. 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
--- OUTSIDE RECORDS SUMMARY | 2020-04-20 21:04 | XMS REPORT | CCD ---
Author Author Fay Enriquez D.O., DO [facility] Address [address] [place] [address] Phone Care Team Providers Care Cocoa Room Operator Name Role Phone Almaz Enriquez D.O., PP Unavailable CCM Unavailable Summary Purpose Interface Exchange Insurance Providers Payer name Policy type / Coverage type Covered libertarian ID Effective Begin Date Effective End Date Blue Cross Blue Shield Blue Cross/Bl ue Shield [id number] Unknown Family history Mother Diagnosis Age At Onset Diabetes mellitus Type 1 Unknown Social History Social History Element Codes Description Effective Dates Marital status Unknown D ivorced 09/17/[address]: 151490093 Has never smoked or chewed tobacco 04/25/2011 Marital status Unknown M arried 01/02/2010 Number of children Unknown 2 01/02/2010 Allergies, Adverse Reactions, Alerts Substance Reaction Codes Entered Date Inactivated Date Status _ Unknown 01/02/2010 No Inactive Date Active _ Unknown 07/19/2014 No Inactive Date Active Milk _ Unknown 01/02/2010 No In active Date Active Past Medical History Illness Codes Condition Status Onset Date Resolved Date Low back pain ICD-9: 724.2 ICD-10: M54.5 Active 05/25/2019 Unknown Personal history of urinary (tract) infections ICD-9: V13.02 ICD-10: Z87.440 Active 05/25/2019 Unknown Palpitations ICD-9: 785.1 ICD-10: R00.2 Active 09/09/2018 Unknown Acute serous otitis media, recurrent, right ear ICD-9: 381.01 ICD-10: H65.04 Active 12/16/2018 Unknown Other infective otit is externa, right ear ICD-9: 380.16 ICD-10: H60.391 Active 12/16/2018 Unknown Dysuria ICD-9: 788.1 ICD-10: R30.0 Active 12/02/2018 Unknown Abnormal results of thyroid function studies ICD-9: 246.9 ICD-10: R94.6 Active 09/09/2018 Unknown Pain in right knee ICD- 9: 719.46 ICD-10: M25.561 Active 08/28/2018 Unknown Gastro-esophageal re flux disease without esophagitis ICD-9: 530.81 ICD-10: K21.9 Active 08/18/2018 Unknown Encounter for screen ing mammogram for malignant neoplasm of breast ICD-9: V76.12 ICD-10: Z12.31 Active 05/14/2017 Unknown Other polyuria ICD-9: 788.42 ICD-10: R35.8 Active 10/21/2017 Unknown Left temporomandibul ar joint disorder, unspecified ICD-9: 524.60 ICD-10: M26.602 Active 06/24/2017 Unknown Otalgia, left ear ICD-9: 388.70 ICD-10: H92.02 Active 06/24/2017 Unknown Insect bite (nonveno mous) of right upper arm, sequela ICD-9: 906.2 ICD-10: S40.861S Active 04/11/2017 Unknown Other seasonal aller gic rhinitis ICD-9: 477.9 ICD-10: J30.2 Active 01/18/2017 Unknown Abnormal weight gain ICD-9: 783.1 ICD-10: R63.5 Active 03/28/2015 Unknown Tinea corporis ICD-9: 110.5 ICD-10: B35.4 Active 11/26/2016 Unknown Pain in left knee ICD-9: 719.46 ICD-10: M25.562 Active 06/21/2016 Unknown Other specified diso rders of Eustachian tube, left ear ICD-9: 381.81 ICD-10: H69.82 Active 07/21/2013 Unknown Other specified diso rders of Eustachian tube, bilateral ICD-9: 381.81 ICD-10: H69.83 Active 07/21/2013 Unknown Otitis media, unspec ified, right ear ICD-9: 382.9 ICD-10: H66.91 Active 04/09/2016 Unknown Acute pharyngitis, u nspecified ICD-9: 462 ICD-10: J02.9 Active 11/22/2015 Unknown Encounter for genera l adult medical examination without abnormal findings ICD-9: V70.0 ICD-10: Z00.00 Active 10/02/2015 Unknown Myalgia ICD-9: 789.09 ICD-10: M79.1 Active 07/31/2015 Unknown Unspecified abdomina l pain ICD-9: 789.09 ICD-10: R10.9 Active 07/31/2015 Unknown Proctalgia ICD-9: 569.42 Active 06/27/2015 Unknow n Rectal bleeding ICD-9: 569.3 Active 06/27/2015 Unknown Right calf pain ICD-9: 729.5 Active 05/01/2015 Unknown ABNORMAL WEIGHT GAIN ICD-9: 783.1 Active 03/28/2015 Unknown MALAISE AND FATIGUE ICD- 9: 780.79 Active 03/28/2015 Unknown ALLERGIC RHINITIS ICD-9: 477.9 Active 02/15/2015 Unknown Paresthesia of hand ICD- 9: 782.0 Active 09/30/2014 Unknown Tenosynovitis, de Qu ervain ICD-9: 727.04 Active Unknown ABDOMINAL PAIN ICD-9: 789.00 Active 07/19/2014 Unknown GERD ICD-9: 530.81 Active 07/19/2014 Unknow n TREMOR NEC ICD-9: 333.1 Active 07/19/2014 Unknow n PAIN, LOWER BACK ICD-9: 724.2 Active 06/01/2014 Unknown SPASM OF MUSCLE ICD-9: 728.85 Active 06/01/2014 Unknown STREPTOCOCCAL INFECT ION GROUP A ICD-9: 041.01 Active Unknown TONSILLITIS, ACUTE ICD- 9: 463 Active 12/25/2013 Unknown DYSURIA ICD-9: 788.1 Active 12/17/2013 Unknow n URI, ACUTE ICD-9: 465.9 Active 08/14/2013 Unknow n PALPITATIONS ICD-9: 785.1 Active 08/03/2013 Unknown Dysfunction of left Eustachian tube ICD-9: 381.81 Active 05/2013 Unknown Vaginal disorder ICD-9: 623.9 Active 06/12/2013 Unknown Fibroid tumor ICD-9: 218.9 Active 08/28/2012 Unknown Hyperglycemia ICD-9: 790.29 Active 08/27/2012 Unknown CONJUNCTIVITIS NOS ICD- 9: 372.30 Active 02/18/2012 Unknown Hyperinsulinemia ICD-9: 251.1 Active 01/08/2012 Unknown HYPOGLYCEMIA ICD-9: 251.2 Active 01/08/2012 Unknown Leg cramps ICD-9: 729.82 Active 12/25/2011 Unknow n Pyelonephritis ICD-9: 590.80 Active 09/17/2011 Unknown Thoracic back pain ICD- 9: 724.1 Active 09/17/2011 Unknown PHARYNGITIS, ACUTE ICD- 9: 462 Active 07/05/2011 Unknown ACNE NEC ICD-9: 706.1 Active 04/11/2011 Unknow n SINUSITIS, ACUTE ICD-9: 461.9 Active 03/13/2011 Unknown Ankle pain ICD-9: 719.47 Active 11/02/2010 Unknow n URINARY TRACT INFECTION ICD-9: 599.0 Active 08/01/2010 Unknown COUGH ICD-9: 786.2 Active 07/25/2010 Unknow n Allergic rhinitis Unknown Active 01/02/2010 Unknown Gastroesophageal ref lux disease Unknown Active 0 Unknown BRONCHITIS, ACUTE ICD-9: 466.0 Active 01/02/2010 Unknown Problems Condition Codes Effectiv e Dates Condition Status Low back pain ICD-9: 724.2 ICD-10: M54.5 05/25/2019 Active Personal history of urinary (tract) infections ICD-9: V13.02 ICD-10: Z87.440 05/25/2019 Active Palpitations ICD-9: 785.1 ICD-10: R00.2 09/09/2018 Active Acute serous otitis media, recurrent, right ear ICD-9: 381.01 ICD-10: H65.04 12/16/2018 Active Other infective otit is externa, right ear ICD-9: 380.16 ICD-10: H60.391 12/16/2018 Active Dysuria ICD-9: 788.1 ICD-10: R30.0 12/02/2018 Active Abnormal results of thyroid function studies ICD-9: 246.9 ICD-10: R94.6 09/09/2018 Active Pain in right knee ICD- 9: 719.46 ICD-10: M25.561 08/28/2018 Active Gastro-esophageal re flux disease without esophagitis ICD-9: 530.81 ICD-10: K21.9 08/18/2018 Active Encounter for screen ing mammogram for malignant neoplasm of breast ICD-9: V76.12 ICD-10: Z12.31 05/14/2017 Active Other polyuria ICD-9: 788.42 ICD-10: R35.8 10/21/2017 Active Left temporomandibul ar joint disorder, unspecified ICD-9: 524.60 ICD-10: M26.602 06/24/2017 Active Otalgia, left ear ICD-9: 388.70 ICD-10: H92.02 06/24/2017 Active Insect bite (nonveno mous) of right upper arm, sequela ICD-9: 906.2 ICD-10: S40.861S 04/11/2017 Active Other seasonal aller gic rhinitis ICD-9: 477.9 ICD-10: J30.2 01/18/2017 Active Abnormal weight gain ICD-9: 783.1 ICD-10: R63.5 03/28/2015 Active Tinea corporis ICD-9: 110.5 ICD-10: B35.4 11/26/2016 Active Pain in left knee ICD-9: 719.46 ICD-10: M25.562 06/21/2016 Active Other specified diso rders of Eustachian tube, left ear ICD-9: 381.81 ICD-10: H69.82 07/21/2013 Active Other specified diso rders of Eustachian tube, bilateral ICD-9: 381.81 ICD-10: H69.83 07/21/2013 Active Otitis media, unspec ified, right ear ICD-9: 382.9 ICD-10: H66.91 04/09/2016 Active Acute pharyngitis, u nspecified ICD-9: 462 ICD-10: J02.9 11/22/2015 Active Encounter for genera l adult medical examination without abnormal findings ICD-9: V70.0 ICD-10: Z00.00 10/02/2015 Active Myalgia ICD-9: 789.09 ICD-10: M79.1 07/31/2015 Active Unspecified abdomina l pain ICD-9: 789.09 ICD-10: R10.9 07/31/2015 Active Proctalgia ICD-9: 569.42 06/27/2015 Active Rectal bleeding ICD-9: 569.3 06/27/2015 Active Right calf pain ICD-9: 729.5 05/01/2015 Active ABNORMAL WEIGHT GAIN ICD-9: 783.1 03/28/2015 Active MALAISE AND FATIGUE ICD- 9: 780.79 03/28/2015 Active ALLERGIC RHINITIS ICD-9: 477.9 02/15/2015 Active Paresthesia of hand ICD- 9: 782.0 09/30/2014 Active Tenosynovitis, de Qu ervain ICD-9: 727.04 09/30/2014 Active ABDOMINAL PAIN ICD-9: 789.00 07/19/2014 Active GERD ICD-9: 530.81 07/19/2014 Active TREMOR NEC ICD-9: 333.1 07/19/2014 Active PAIN, LOWER BACK ICD-9: 724.2 06/01/2014 Active SPASM OF MUSCLE ICD-9: 728.85 06/01/2014 Active STREPTOCOCCAL INFECT ION GROUP A ICD-9: 041.01 12/25/2013 Active TONSILLITIS, ACUTE ICD- 9: 463 12/25/2013 Active DYSURIA ICD-9: 788.1 12/17/2013 Active URI, ACUTE ICD-9: 465.9 08/14/2013 Active PALPITATIONS ICD-9: 785.1 08/03/2013 Active Dysfunction of left Eustachian tube ICD-9: 381.81 07/21/2013 Active Vaginal disorder ICD-9: 623.9 06/12/2013 Active Fibroid tumor ICD-9: 218.9 08/28/2012 Active Hyperglycemia ICD-9: 790.29 08/27/2012 Active CONJUNCTIVITIS NOS ICD- 9: 372.30 02/18/2012 Active Hyperinsulinemia ICD-9: 251.1 01/08/2012 Active HYPOGLYCEMIA ICD-9: 251.2 01/08/2012 Active Leg cramps ICD-9: 729.82 12/25/2011 Active Pyelonephritis ICD-9: 590.80 09/17/2011 Active Thoracic back pain ICD- 9: 724.1 09/17/2011 Active PHARYNGITIS, ACUTE ICD- 9: 462 07/05/2011 Active ACNE NEC ICD-9: 706.1 04/11/2011 Active SINUSITIS, ACUTE ICD-9: 461.9 03/13/2011 Active Ankle pain ICD-9: 719.47 11/02/2010 Active URINARY TRACT INFECTION ICD-9: 599.0 08/01/2010 Active COUGH ICD-9: 786.2 07/25/2010 Active Allergic rhinitis Unknown 01/02/2010 Active Gastroesophageal ref lux disease Unknown 01/02/2010 Activ e BRONCHITIS, ACUTE ICD-9: 466.0 01/02/2010 Active Medications Medication Codes Instruc tions Start Date Stop Date Sta tus Fill Instructions Protonix 40 mg table t,delayed release RxNorm: 808888 1 Tablet(s) PO QD 06/05/2019 09/02/2019 Ac tive Bactrim DS 800 mg-16 0 mg tablet RxNorm: 157094 1 Tablet(s) PO BID 05/25/2019 05/31/2019 Inactive nhqcrvot-ofsnadaim-h ydrocort 3.5 mg/mL-10,000 unit/mL-1 % ear solution RxNorm: 961018 4 Drop(s) otic (ear) TID 12/17/2018 12/16/2018 Inactive jfgnidud-lxcncjbpv-x ydrocort 3.5 mg/mL-10,000 unit/mL-1 % ear solution RxNorm: 943821 4 Drop(s) otic (ear) TID 12/17/2018 12/23/2018 Inactive right ear ofloxacin 0.3 % ear drops RxNorm: 996122 5 Drop(s) otic (ear) BID 12/16/2018 12/16/2018 Inactive right ear amoxicillin 875 mg t ablet RxNorm: 593762 1 Tablet(s) PO BID 12/16/2018 12/25/2018 Inactive Diflucan 200 mg tablet RxNorm: 445039 1 Tablet(s) PO Q72H 12/16/2018 01/04/2019 Inactive Bactrim DS 800 mg-16 0 mg tablet RxNorm: 047230 1 Tablet(s) PO BID 12/02/2018 12/01/2018 Inactive Bactrim DS 800 mg-16 0 mg tablet RxNorm: 054331 1 Tablet(s) PO BID 12/02/2018 12/08/2018 Inactive Protonix 40 mg table t,delayed release RxNorm: 886845 1 Tablet(s) PO QD 09/23/2018 12/21/2018 In active Protonix 40 mg table t,delayed release RxNorm: 284586 1 Tablet(s) PO BID 09/18/2018 09/22/2018 In active Voltaren 1 % topical gel RxNorm: 880695 2 Gram(s) TOP QID to right knee 08/28/2018 05/05/2019 In active Diflucan 150 mg tablet RxNorm: 296065 1 Tablet(s) PO Q72H Take one tablet toda y and repeat in 3 days if no improvement. 10/23/2017 08/17/2018 Inactive Diflucan 150 mg tablet RxNorm: 010174 1 Tablet(s) PO Q72H Take one tablet toda y and repeat in 3 days if no improvement. 10/04/2017 10/22/2017 Inactive ofloxacin 0.3 % ear drops RxNorm: 263918 4 Drop(s) OTIC TID fo r 1 week 06/24/2017 08/17/2018 In active Medrol (Scar) 4 mg ta blets in a dose pack RxNorm: 356512 Take as directed 01/18/2017 04/10/2017 In active ketoconazole 2 % top ical cream RxNorm: 351993 Application TOP BID t o lesion x 2 weeks 11/26/2016 01/17/2017 Inactive Protonix 40 mg table t,delayed release RxNorm: 206905 1 TABLET(S) PO QD 10/13/2016 05/05/2019 In active phentermine 37.5 mg tablet RxNorm: 693876 1 Tablet(s) PO QAM 08/23/2016 11/25/2016 Inactive Medrol (Scar) 4 mg ta blets in a dose pack RxNorm: 737219 Take as directed 06/14/2016 08/22/2016 In active Diflucan 150 mg tablet RxNorm: 233229 1 Tablet(s) PO QD . May repeat in 2-3 da ys if needed. 04/10/2016 04/11/2016 Inactive amoxicillin 875 mg t ablet RxNorm: 948651 1 Tablet(s) PO BID 04/10/2016 04/18/2016 Inactive Medrol (Scar) 4 mg ta blets in a dose pack RxNorm: 819637 Take as directed 04/10/2016 04/18/2016 In active Anusol-HC 25 mg supp ository RxNorm: 0342062 1 Suppository RTL BID 06/28/2015 07/11/2015 Inactive Protonix 40 mg table t,delayed release RxNorm: 448449 1 Tablet(s) PO QD 04/27/2015 10/23/2015 In active Contrave 8 mg-90 mg tablet,extended release RxNorm: 2090965 1 Tablet(s) PO QAM f or 1 week then 1 po BID for 1week then 1 in AM and 2 in PM for 1week then 2 po BID 03/29/2015 06/27/2015 Inactive [SAVINGS FOR UNINSURED PATIENTS -- BIN:[id number], PCN: [id number], Group: [id number], ID# [id number], Process claim through [employer], for questions: . THIS IS NOT INSURANCE.] Flonase Allergy Reli ef 50 mcg/actuation nasal spray,suspension RxNorm: 2 [place] NASAL QHS 02/15/2015 03/28/2015 Inactive Carafate 1 gram tablet RxNorm: 057220 1 Tablet(s) PO AC & HS 12/30/2014 06/13/2016 Inactive Diflucan 100 mg tablet RxNorm: 190593 1 Tablet(s) PO QD 09/30/2014 10/06/2014 Inactive metformin ER 500 mg tablet,extended release 24hr RxNorm: 520451 1/2 Tablet(s) PO QD 09/15/2014 12/29/2014 In active metformin ER 500 mg tablet,extended release 24hr RxNorm: 784158 1/2 Tablet(s) PO QD 09/15/2014 09/14/2014 In active Carafate 1 gram tablet RxNorm: 963966 1 Tablet(s) PO AC & HS 07/19/2014 09/16/2014 Inactive Diflucan 100 mg tablet RxNorm: 065549 1 Tablet(s) PO QD 12/28/2013 01/03/2014 Inactive amoxicillin 875 mg t ablet RxNorm: 435245 1 Tablet(s) PO BID 12/25/2013 01/03/2014 Inactive Protonix 40 mg table t,delayed release RxNorm: 981511 1 Tablet(s) PO QD 12/03/2013 07/25/2014 In active Zithromax 250 mg tablet RxNorm: 059540 2 Tablet(s) PO QD 09/15/2013 09/21/2013 Inactive Flagyl 500 mg tablet RxNorm: 963043 1 Tablet(s) PO Q12H 06/12/2013 06/18/2013 Inactive Diflucan 100 mg tablet RxNorm: 054024 1 Tablet(s) PO QD 12/08/2012 12/14/2012 Inactive Diflucan 100 mg tablet RxNorm: 763166 1 Tablet(s) PO QD 12/08/2012 12/07/2012 Inactive azithromycin 250 mg tablet RxNorm: 404015 2 Tablet(s) PO QD ant ibiotic 10/30/2012 11/06/2012 In active Carafate 1 gram Tab RxNorm: 734833 1 Tablet(s) PO AC 05/27/2012 06/11/2013 Inactive MetroCream 0.75 % To pical RxNorm: 047997 Application TOP BID 05/27/2012 06/11/2013 Inactive to face Protonix 40 mg Tab RxNorm: 830376 1 Tablet(s) PO QD 2012 11/15/2012 Inactive Dexilant 60 mg Capsule RxNorm: 050310 1 Capsule(s) PO QD 04/30/2012 05/26/2012 Inactive metformin ER 500 mg 24 hr Tab RxNorm: 538499 1 Tablet(s) PO QAM 04/30/2012 10/29/2012 Inactive tobramycin 0.3 % Eye Drops RxNorm: 186277 1-2 Drop(s) OPH Q4H o ne to two drops in effected eye(s) every four hours for a maximum of 7 days. If no improvement in 1-2 days need eval 02/15/2012 02/19/2012 Inactive amoxicillin 875 mg t ablet RxNorm: 310295 1 Tablet(s) PO BID 10/19/2011 10/28/2011 Inactive Protonix 40 mg Tab RxNorm: 669836 1 Tablet(s) PO QD 04/11/2011 10/07/2011 Inactive cefuroxime axetil 50 0 mg Tab RxNorm: 743829 1 Tablet(s) PO BID 03/13/2011 03/22/2011 Inactive Ibuprofen 600 mg Tab RxNorm: 467857 1 Tablet(s) PO TID prn pain 04/26/2010 06/24/2010 Inactive Levapak 750 mg Tablet RxNorm: 1 Tablet(s) PO QD 01/02/2010 01/06/2010 Inactive Children's Multivita mins with Iron chewable tablet RxNorm: 1 Tablet(s) PO QD No Start Date Active Cortisporin otic (ear) RxNorm: 16913 otic (ear) No Start Date 12/16/2018 Inactive Sprix 15.75 mg/spray Nasal [place] RxNorm: 4232880 1 [place] NASAL QID ea ch nostril--for pain for 5 days No Start Date 01/07/2012 Inactive Promethazine-Codeine 6.25 mg-10 mg/5 mL Syrup RxNorm: 533083 1-2 Teaspoon(s) PO Q4 H prn cough No Start Date 04/10/2011 Inactive metformin ER 500 mg 24 hr Tab RxNorm: 713560 1/2 Tablet(s) PO QAM No Start Date 04/29/2012 Inactive metformin ER 500 mg 24 hr tablet,extended release RxNorm: 507069 1/2 Tablet(s) PO QD No Start Date 12/27/2012 Inactive Protonix 40 mg table t,delayed release RxNorm: 547041 1 Tablet(s) PO QD No Start Date 12/02/2013 Inactive Carafate 1 gram Tab RxNorm: 186700 1 Tablet(s) PO AC No Start Date 05/26/2012 Inactive Flonase 50 mcg/Actua tion Nasal [place] RxNorm: 2674079 1 [place] NASAL BID No Start Date 04/10/2011 Inactive Protonix 40 mg table t,delayed release RxNorm: 263702 1 Tablet(s) PO BID No Start Date 12/29/2014 Inactive Protonix 40 mg Tab RxNorm: 337926 1 Tablet(s) PO QD No Start Date 07/20/2013 Inactive Dexilant 60 mg capsu le, delayed release RxNorm: 105764 1 Capsule(s) PO QD No Start Date 06/23/2017 Inactive Diflucan 150 mg tablet RxNorm: 516760 1 Tablet(s) PO Q72H Take one tablet toda y and repeat in 3 days if no improvement. No Start Date 10/03/2017 Inactive Protonix 40 mg table t,delayed release RxNorm: 557084 1 Tablet(s) PO QD No Start Date 04/26/2015 Inactive MetroCream 0.75 % To pical RxNorm: 780696 Application TOP BID No Start Date 05/26/2012 Inactive to face Zithromax Z-Scar 250 mg Tab RxNorm: 003699 1 Tablet(s) PO QD No Start Date 09/16/2011 Inactive as directed Protonix 40 mg table t,delayed release RxNorm: 744874 1 Tablet(s) PO BID No Start Date 09/17/2018 Inactive Medication Administered No Medication Administered data Immunizations No Immunization data Assessments Condition Codes Effectiv e Dates Personal history of urinary (tract) infections ICD-10: Z87.440 ICD-9: V13.02 05/25/2019 Low back pain ICD-10: M54.5 ICD-9: 724.2 05/25/2019 Palpitations ICD-10: R00.2 ICD-9: 785.1 05/06/2019 Acute serous otitis media, recurrent, right ear ICD-10: H65.04 ICD-9: 381.01 12/16/2018 Other infective otitis externa, right ear ICD-10: H60.391 ICD-9: 380.16 12/16/2018 Dysuria ICD-10: R30.0 ICD-9: 788.1 12/02/2018 Abnormal results of thyroid function studies ICD-10: R94.6 ICD-9: 246.9 09/09/2018 Pain in right knee ICD-10: M25.561 ICD-9: 719.46 08/28/2018 Gastro-esophageal reflux disease without esophagitis ICD-10: K21.9 ICD-9: 530.81 08/18/2018 Encounter for screening mammogram for ma lignant neoplasm of breast ICD-10: Z12.31 ICD-9: V76.12 05/13/2018 Other polyuria ICD-10: R35.8 ICD-9: 788.42 10/21/2017 Otalgia, left ear ICD-10: H92.02 ICD-9: 388.70 06/24/2017 Left temporomandibular joint disorder, unspecified ICD-10: M26.602 ICD-9: 524.60 06/24/2017 Insect bite (nonvenomous) of right upper arm, sequela ICD-10: S40.861S ICD-9: 906.2 04/11/2017 Other seasonal allergic rhinitis ICD -10: J30.2 ICD-9: 477.9 01/18/2017 Tinea corporis ICD-10: B35.4 ICD-9: 110.5 11/26/2016 Abnormal weight gain ICD-10: R63.5 ICD-9: 783.1 11/26/2016 Pain in left knee ICD-10: M25.562 ICD-9: 719.46 06/22/2016 Other specified disorders of Eustachian tube, left ear ICD-10: H69.82 ICD-9: 381.81 04/19/2016 Otitis media, unspecified, right ear ICD-10: H66.91 ICD-9: 382.9 04/10/2016 Other specified disorders of Eustachian tube, bilatera l ICD- 10: H69.83 ICD-9: 381.81 04/10/2016 Acute pharyngitis, unspecified ICD-1 0: J02.9 ICD-9: 462 11/22/2015 Encounter for general adult medical exam ination without abnormal findings ICD-10: Z00.00 ICD-9: V70.0 10/03/2015 Myalgia ICD-10: M79.1 ICD-9: 789.09 08/01/2015 Unspecified abdominal pain ICD-10: R 10.9 ICD-9: 789.09 08/01/2015 Proctalgia ICD-9: 569.42 06/28/2015 Rectal bleeding ICD-9: 569.3 06/28/2015 Right calf pain ICD-9: 729.5 05/02/2015 ABNORMAL WEIGHT GAIN ICD-9: 783.1 03/29/2015 MALAISE AND FATIGUE ICD-9: 780.79 03/29/2015 Flank pain ICD-9: 789.00 03/29/2015 ALLERGIC RHINITIS ICD-9: 477.9 02/15/2015 GERD ICD-9: 530.81 12/30 Tenosynovitis, de Quervain ICD-9: 727.04 09/30/2014 Paresthesia of hand ICD-9: 782.0 09/30/2014 TREMOR NEC ICD-9: 333.1 07/19/2014 PAIN, LOWER BACK ICD-9: 724.2 06/01/2014 SPASM OF MUSCLE ICD-9: 728.85 06/01/2014 STREPTOCOCCAL INFECTION GROUP A ICD- 9: 041.01 12/25/2013 TONSILLITIS, ACUTE ICD-9: 463 12/25/2013 DYSURIA ICD-9: 788.1 03/2014 BRONCHITIS, ACUTE ICD-9: 466.0 09/15/2013 URI, ACUTE ICD-9: 465.9 08/14/2013 PALPITATIONS ICD-9: 785.1 08/03/2013 Dysfunction of left Eustachian tube ICD-9: 381.81 07/21/2013 SINUSITIS, ACUTE ICD-9: 461.9 07/21/2013 Vaginal disorder ICD-9: 623.9 06/12/2013 HYPOGLYCEMIA NEC ICD-9: 251.1 12/25/2012 COUGH ICD-9: 786.2 10/30 PHARYNGITIS, ACUTE ICD-9: 462 10/30/2012 Fibroid tumor ICD-9: 218.9 08/28/2012 HYPOGLYCEMIA ICD-9: 251.2 08/28/2012 Hyperglycemia ICD-9: 790.29 08/27/2012 CONJUNCTIVITIS NOS ICD-9: 372.30 02/18/2012 Leg cramps ICD-9: 729.82 12/25/2011 Pyelonephritis ICD-9: 590.80 09/17/2011 Recurrent UTI ICD-9: 599.0 09/17/2011 Thoracic back pain ICD-9: 724.1 09/17/2011 ACNE NEC ICD-9: 706.1 JOINT PAIN-ANKLE ICD-9: 719.47 11/30/2010 Reason For Visit Reason For Visit Effective Dates Notes flank pain 05/25/2019 le ft palpitations 05/06/2019 sore throat 12/16/2018 r ight is worse than the left painful urination 12/02/2018 follow up 09/09/2018 knee pain 08/28/2018 chest tightness 08/18/2018 low back pain 10/21/2017 otalgia 06/24/2017 follow up 04/11/2017 Fro m ER cough 01/18/2017 weight gain/obesity 11/26/2016 weight check 10/25/2016 blood pressure check 09/21/2016 weight gain/obesity 08/23/2016 Patient would like to start Phentermine- with family history of weight gain and patient's history of reflux knee pain 06/14/2016 Natalie salas woke up with Sharp pain 1 week ago. Patient is unable to remember any event that could have caused the pain follow up 04/19/2016 otalgia 04/10/2016 Taina kendall went to Urgent care this past Saturday and placed on [...] cough 09/15/2013 cough 08/14/2013 follow up 08/03/2013 Hos pital fwup sore throat 07/21/2013 ~generic 06/12/2013 vagi nal odor, "fishy" follow up 12/25/2012 Ins ulin Resistance cough 10/30/2012 follow up 08/28/2012 4mo fwup/discuss labs lab draw 08/27/2012 hype rglycemia/insulin follow up tomorrow follow up 05/27/2012 has normal heart cath follow up 04/30/2012 dis cuss labs lab draw 04/29/2012 eye erythema 02/18/2012 follow up 01/08/2012 dis cuss labs before starting metformin sore throat 10/19/2011 follow up 09/17/2011 hos pital fwup--still on Omnicef sore throat 07/05/2011 gastroesophageal reflux 05/31/2011 gastroesophageal reflux 04/11/2011 sinus congestion 03/13/2011 ~generic 11/30/2010 3 we ek F/U ankle sprain. Not using crutches or cane. Continues to use ankle brace/wrap, states ankle aches more without support. Denies pain with ambulation, only discomfort comes intermittantly while at rest and in the mornings. follow up 11/02/2010 ER visit 10/27/10, right ankle sprain. Started wearing shoes again today. Pt states pain is controlled with ibuprofen as long as there is no weight bearing. Has shooting pain up anterior leg with any weight bearing. sinus congestion 07/25/2010 cough 01/02/2010 thick y ellow phlegm Results Observation Observation Code Item Item Code Result Date THYROID STIMULATING HORMONE 23499 TSH 1.360 uIU/ML 5 COMPREHENSIVE METABOLIC 76345 AST 12 U/L 10/03/2015 COMPREHENSIVE METABOLIC 39012 ALT 9 IU/L 10/03/2015 COMPREHENSIVE METABOLIC 51229 BUN 10 MG/DL 10/03/2015 COMPREHENSIVE METABOLIC 42267 ALBUMIN 4.3 GM/DL 10/03/2015 COMPREHENSIVE METABOLIC 91504 CHLORIDE 104 MMOL/L 10/03/2015 COMPREHENSIVE METABOLIC 52695 BILI TOT 0.3 MG/DL 10/03/2015 COMPREHENSIVE METABOLIC 47463 ALK PHOS 34 U/L 10/03/2015 COMPREHENSIVE METABOLIC 59509 SODIUM 137 MMOL/L 10/03/2015 COMPREHENSIVE METABOLIC 87180 CREATININE 0.77 MG/DL 10/03/2015 COMPREHENSIVE METABOLIC 26112 CALCIUM 9.6 MG/DL 10/03/2015 COMPREHENSIVE METABOLIC 53025 POTASSIUM 4.1 MMOL/L 10/03/2015 COMPREHENSIVE METABOLIC 09095 PROT TOT 7.1 GM/DL 10/03/2015 COMPREHENSIVE METABOLIC 48643 Glucose 92 MG/DL 10/03/2015 COMPREHENSIVE METABOLIC 89425 BICARB 27 MMOL/L 10/03/2015 COMPREHENSIVE METABOLIC 77345 ANION GAP 6 MEQ/L 10/03/2015 LIPID GROUP [address] 52 MG/DL 10/03/2015 LIPID GROUP 54159 TRIG 78 MG/DL 10/03/2015 LIPID GROUP 58854 TEST L DL 114 MG/DL 10/03/2015 LIPID GROUP 27727 CHOL 182 MG/DL 10/03/2015 LIPID GROUP 00893 RCHOL/ HDL 3.50 RATIO 10/03/2015 LIPID GROUP 67593 NON-HD L CH 130 MG/DL 10/03/2015 GFR CALC 1217089 GFR AA >60 ML/MIN 10/03/2015 GFR CALC 6102425 GFR NON -AA >60 ML/MIN 10/03/2015 COMPLETE BLOOD COUNT 4450472 WBC 4.9 10e9/L 10/03/2015 COMPLETE BLOOD COUNT 7004304 RBC 4.49 10e12/L 5 COMPLETE BLOOD COUNT 5472352 HGB 11.3 g/dL 10/03/2015 COMPLETE BLOOD COUNT 9461163 HCT DET 34.7 % 10/03/2015 COMPLETE BLOOD COUNT 1384866 MCV 77.3 fL 10/03/2015 COMPLETE BLOOD COUNT [id number] MCH 25.2 pg 10/03/2015 COMPLETE BLOOD COUNT [id number] MCHC 32.6 g/dL 10/03/2015 COMPLETE BLOOD COUNT [id number] PLT 314 10e9/L 10/03/2015 COMPLETE BLOOD COUNT [id number] MPV 10.4 fL 10/03/2015 COMPLETE BLOOD COUNT [id number] ALEXX % 41.0 % 10/03/2015 COMPLETE BLOOD COUNT [id number] LY % 47.7 % 10/03/2015 COMPLETE BLOOD COUNT [id number] MON % 8.4 % 10/03/2015 COMPLETE BLOOD COUNT [id number] EOS % 2.7 % 10/03/2015 COMPLETE BLOOD COUNT [id number] BASO % 0.2 % 10/03/2015 COMPLETE BLOOD COUNT [id number] RDW 14.5 % 10/03/2015 COMPLETE BLOOD COUNT [id number] ABS ALEXX 2.01 10e9/L 10/03/2015 COMPLETE BLOOD COUNT [id number] ABS LYMPH 2.34 10e9/L 10/03/2015 COMPLETE BLOOD COUNT [id number] ABS MONO 0.41 10e9/L 10/03/2015 COMPLETE BLOOD COUNT [id number] ABS EOS 0.13 10e9/L 10/03/2015 COMPLETE BLOOD COUNT [id number] ABS BASO 0.01 10e9/L 10/03/2015 COMPLETE BLOOD COUNT [id number] RDW-SD 39.6 fL 10/03/2015 FREE T4 68149 FREE T4 1.08 NG/DL 10/03/2015 GFR CALC [id number] GFR AA >60 ML/MIN 12/25/2012 GFR CALC [id number] GFR NON -AA >60 ML/MIN 12/25/2012 INSULIN SERUM 36698 INSU BRITT 5.0 mU/L 12/25/2012 BASIC METABOLIC PANEL 64943 Glucose 82 MG/DL 12/25/2012 BASIC METABOLIC PANEL 76820 CREATININE 0.83 MG/DL 12/25/2012 BASIC METABOLIC PANEL 75081 BUN 9 MG/DL 12/25/2012 BASIC METABOLIC PANEL 95691 BICARB 26 MMOL/L 12/25/2012 BASIC METABOLIC PANEL 51359 SODIUM 139 MMOL/L 12/25/2012 BASIC METABOLIC PANEL 58037 POTASSIUM 4.3 MMOL/L 12/25/2012 BASIC METABOLIC PANEL 25555 ANION GAP 8 MEQ/L 12/25/2012 BASIC METABOLIC PANEL 41864 CHLORIDE 105 MMOL/L 12/25/2012 BASIC METABOLIC PANEL 58333 CALCIUM 9.6 MG/DL 12/25/2012 GFR CALC [id number] GFR AA >60 ML/MIN 08/27/2012 GFR CALC [id number] GFR NON -AA >60 ML/MIN 08/27/2012 COMPREHENSIVE METABOLIC 80933 AST 16 U/L 08/27/2012 COMPREHENSIVE METABOLIC 47579 ALT 11 IU/L 08/27/2012 COMPREHENSIVE METABOLIC 16827 BUN 9 MG/DL 08/27/2012 COMPREHENSIVE METABOLIC 50849 ALBUMIN 4.1 GM/DL 08/27/2012 COMPREHENSIVE METABOLIC 49784 CHLORIDE 106 MMOL/L 08/27/2012 COMPREHENSIVE METABOLIC 62304 BILI TOT 0.2 MG/DL 08/27/2012 COMPREHENSIVE METABOLIC 85757 ALK PHOS 35 U/L 08/27/2012 COMPREHENSIVE METABOLIC 53291 SODIUM 137 MMOL/L 08/27/2012 COMPREHENSIVE METABOLIC 78072 CREATININE 0.80 MG/DL 08/27/2012 COMPREHENSIVE METABOLIC 80939 CALCIUM 9.2 MG/DL 08/27/2012 COMPREHENSIVE METABOLIC 41337 POTASSIUM 4.5 MMOL/L 08/27/2012 COMPREHENSIVE METABOLIC 82066 PROT TOT 6.9 GM/DL 08/27/2012 COMPREHENSIVE METABOLIC 32539 Glucose 92 MG/DL 08/27/2012 COMPREHENSIVE METABOLIC 29123 BICARB 25 MMOL/L 08/27/2012 COMPREHENSIVE METABOLIC 96997 ANION GAP 6 MEQ/L 08/27/2012 INSULIN SERUM 90120 INSU BRITT 10.6 mU/L 08/27/2012 GFR CALC [id number] GFR AA >60 ML/MIN 04/29/2012 GFR CALC [id number] GFR NON -AA >60 ML/MIN 04/29/2012 GLYCOSYLATED HEMOGLOBIN TEST 77094 A1C HPLC 78727-9 5.6 % 04/29/2012 COMPREHENSIVE METABOLIC 89522 AST 14 U/L 04/29/2012 COMPREHENSIVE METABOLIC 71525 ALT 9 IU/L 04/29/2012 COMPREHENSIVE METABOLIC 13764 BUN 11 MG/DL 04/29/2012 COMPREHENSIVE METABOLIC 92929 ALBUMIN 4.4 GM/DL 04/29/2012 COMPREHENSIVE METABOLIC 87139 CHLORIDE 105 MMOL/L 04/29/2012 COMPREHENSIVE METABOLIC 96276 BILI TOT 0.2 MG/DL 04/29/2012 COMPREHENSIVE METABOLIC 22581 ALK PHOS 36 U/L 04/29/2012 COMPREHENSIVE METABOLIC 98304 SODIUM 139 MMOL/L 04/29/2012 COMPREHENSIVE METABOLIC 78367 CREATININE 0.80 MG/DL 04/29/2012 COMPREHENSIVE METABOLIC 22279 CALCIUM 9.5 MG/DL 04/29/2012 COMPREHENSIVE METABOLIC 75883 POTASSIUM 4.4 MMOL/L 04/29/2012 COMPREHENSIVE METABOLIC 30210 PROT TOT 6.6 GM/DL 04/29/2012 COMPREHENSIVE METABOLIC 60227 Glucose 81 MG/DL 04/29/2012 COMPREHENSIVE METABOLIC 59161 BICARB 26 MMOL/L 04/29/2012 COMPREHENSIVE METABOLIC 90745 ANION GAP 8 MEQ/L 04/29/2012 INSULIN SERUM 71348 INSU BRITT 28.2 mU/L 12/26/2011 COMPREHENSIVE METABOLIC 06215 AST 19 U/L 12/25/2011 COMPREHENSIVE METABOLIC 79213 ALT 15 IU/L 12/25/2011 COMPREHENSIVE METABOLIC 52246 BUN 8 MG/DL 12/25/2011 COMPREHENSIVE METABOLIC 08524 ALBUMIN 4.6 GM/DL 12/25/2011 COMPREHENSIVE METABOLIC 24927 CHLORIDE 105 MMOL/L 12/25/2011 COMPREHENSIVE METABOLIC 31454 BILI TOT 0.4 MG/DL 12/25/2011 COMPREHENSIVE METABOLIC 34915 ALK PHOS 38 U/L 12/25/2011 COMPREHENSIVE METABOLIC 40240 SODIUM 141 MMOL/L 12/25/2011 COMPREHENSIVE METABOLIC 19281 CREATININE 0.74 MG/DL 12/25/2011 COMPREHENSIVE METABOLIC 60294 CALCIUM 9.4 MG/DL 12/25/2011 COMPREHENSIVE METABOLIC 61268 POTASSIUM 4.1 MMOL/L 12/25/2011 COMPREHENSIVE METABOLIC 79025 PROT TOT 7.6 GM/DL 12/25/2011 COMPREHENSIVE METABOLIC 27504 Glucose 53 MG/DL 12/25/2011 COMPREHENSIVE METABOLIC 25638 BICARB 25 MMOL/L 12/25/2011 COMPREHENSIVE METABOLIC 86609 ANION GAP 11 MEQ/L 12/25/2011 COMPLETE BLOOD COUNT 51566 WBC 3.7 10e9/L 12/25/2011 COMPLETE BLOOD COUNT 44313 RBC 4.53 10e12/L 2 COMPLETE BLOOD COUNT 95932 HGB 11.4 g/dL 12/25/2011 COMPLETE BLOOD COUNT 73880 HCT DET 35.4 % 12/25/2011 COMPLETE BLOOD COUNT 28763 MCV 78.1 fL 12/25/2011 COMPLETE BLOOD COUNT 06008 MCH 25.2 pg 12/25/2011 COMPLETE BLOOD COUNT 15081 MCHC 32.2 g/dL 12/25/2011 COMPLETE BLOOD COUNT 59693 PLT 327 10e9/L 12/25/2011 COMPLETE BLOOD COUNT 46709 MPV 10.9 fL 12/25/2011 COMPLETE BLOOD COUNT 87988 ALEXX % 30.9 % 12/25/2011 COMPLETE BLOOD COUNT 97805 LY % 57.0 % 12/25/2011 COMPLETE BLOOD COUNT 98391 MON % 9.1 % 12/25/2011 COMPLETE BLOOD COUNT 38037 EOS % 2.7 % 12/25/2011 COMPLETE BLOOD COUNT 07253 BASO % 0.3 % 12/25/2011 COMPLETE BLOOD COUNT 20754 RDW 14.0 % 12/25/2011 COMPLETE BLOOD COUNT 64899 ABS ALEXX 1.14 10e9/L 12/25/2011 COMPLETE BLOOD COUNT 95927 ABS LYMPH 2.11 10e9/L 12/25/2011 COMPLETE BLOOD COUNT 26849 ABS MONO 0.34 10e9/L 12/25/2011 COMPLETE BLOOD COUNT 89354 ABS EOS 0.10 10e9/L 12/25/2011 COMPLETE BLOOD COUNT 92285 ABS BASO 0.01 10e9/L 12/25/2011 COMPLETE BLOOD COUNT 09070 RDW-SD 39.0 fL 12/25/2011 GFR CALC 5044054 GFR AA >60 ML/MIN 12/25/2011 GFR CALC 0300131 GFR NON -AA >60 ML/MIN 12/25/2011 AMYLASE 23812 AMYLASE 63 IU/L 05/31/2011 GFR CALC [id number] GFR AA >60 ML/MIN 05/31/2011 GFR CALC 9411875 GFR NON -AA >60 ML/MIN 05/31/2011 COMPLETE BLOOD COUNT 59182 WBC 5.0 10e9/L 05/31/2011 COMPLETE BLOOD COUNT 85308 RBC 4.56 10e12/L 1 COMPLETE BLOOD COUNT 48309 HGB 11.6 g/dL 05/31/2011 COMPLETE BLOOD COUNT 07361 HCT DET 35.1 % 05/31/2011 COMPLETE BLOOD COUNT 95385 MCV 77.0 fL 05/31/2011 COMPLETE BLOOD COUNT 28664 MCH 25.4 pg 05/31/2011 COMPLETE BLOOD COUNT 96115 MCHC 33.0 g/dL 05/31/2011 COMPLETE BLOOD COUNT 59084 PLT 313 10e9/L 05/31/2011 COMPLETE BLOOD COUNT 32940 MPV 11.0 fL 05/31/2011 COMPLETE BLOOD COUNT 96553 ALEXX % 37.7 % 05/31/2011 COMPLETE BLOOD COUNT 64048 LY % 49.1 % 05/31/2011 COMPLETE BLOOD COUNT 19360 MON % 10.4 % 05/31/2011 COMPLETE BLOOD COUNT 83290 EOS % 2.6 % 05/31/2011 COMPLETE BLOOD COUNT 29609 BASO % 0.2 % 05/31/2011 COMPLETE BLOOD COUNT 39842 RDW 13.7 % 05/31/2011 COMPLETE BLOOD COUNT 11266 ABS ALEXX 1.89 10e9/L 05/31/2011 COMPLETE BLOOD COUNT 27731 ABS LYMPH 2.46 10e9/L 05/31/2011 COMPLETE BLOOD COUNT 83692 ABS MONO 0.52 10e9/L 05/31/2011 COMPLETE BLOOD COUNT 36644 ABS EOS 0.13 10e9/L 05/31/2011 COMPLETE BLOOD COUNT 37933 ABS BASO 0.01 10e9/L 05/31/2011 COMPLETE BLOOD COUNT 30997 RDW-SD 37.4 fL 05/31/2011 COMPREHENSIVE METABOLIC 54978 AST 16 U/L 05/31/2011 COMPREHENSIVE METABOLIC 20128 ALT 10 IU/L 05/31/2011 COMPREHENSIVE METABOLIC 95125 BUN 9 MG/DL 05/31/2011 COMPREHENSIVE METABOLIC 19071 ALBUMIN 4.4 GM/DL 05/31/2011 COMPREHENSIVE METABOLIC 19800 CHLORIDE 102 MMOL/L 05/31/2011 COMPREHENSIVE METABOLIC 49983 BILI TOT 0.3 MG/DL 05/31/2011 COMPREHENSIVE METABOLIC 15755 ALK PHOS 36 U/L 05/31/2011 COMPREHENSIVE METABOLIC 93747 SODIUM 138 MMOL/L 05/31/2011 COMPREHENSIVE METABOLIC 96393 CREATININE 0.72 MG/DL 05/31/2011 COMPREHENSIVE METABOLIC 20702 CALCIUM 9.6 MG/DL 05/31/2011 COMPREHENSIVE METABOLIC 49780 POTASSIUM 3.9 MMOL/L 05/31/2011 COMPREHENSIVE METABOLIC 97918 PROT TOT 7.2 GM/DL 05/31/2011 COMPREHENSIVE METABOLIC 55713 Glucose 82 MG/DL 05/31/2011 COMPREHENSIVE METABOLIC 09891 BICARB 29 MMOL/L 05/31/2011 COMPREHENSIVE METABOLIC 19178 ANION GAP 7 MEQ/L 05/31/2011 LIPASE 31962 LIPASE 11 IU/L 05/31/2011 Review of Systems System Result Effective Dates Constitutional chills Constitutional night sweats 05/25/2019 Gastrointestinal No abdominal pain 05/25/2019 Gastrointestinal No constipation 05/25/2019 Gastrointestinal No diarrhea 05/25/2019 Gastrointestinal No nausea 05/25/2019 Respiratory No cough 09/2019 Respiratory No dyspnea 0 05/25/2019 Genitourinary/Nephrology No dysuria 05/25/2019 Genitourinary/Nephrology flank pain 05/25/2019 Genitourinary/Nephrology No hematuria 05/25/2019 Genitourinary/Nephrology No urinary urgenc y 05/25/2019 Genitourinary/Nephrology No urinary frequency 05/25/2019 Genitourinary/Nephrology No urinary incontinence 05/25/2019 Dermatologic No rash 09/2019 Cardiovascular No chest pain/pressure 05/25/2019 Cardiovascular No arrhythmia 05/06/2019 Cardiovascular No chest pain/pressure 05/06/2019 Cardiovascular No dyspnea 05/06/2019 Cardiovascular palpitations 05/06/2019 Constitutional No fussiness 12/16/2018 Constitutional No night sweats 12/16/2018 Constitutional No anorexia 12/16/2018 Constitutional No chills 12/16/2018 Constitutional No diaphoresis 12/16/2018 Constitutional No recent illness 12/16/2018 Constitutional No fatigue 12/16/2018 Constitutional No fever 12/16/2018 Constitutional No insomnia 12/16/2018 Constitutional No malaise 12/16/2018 Constitutional No weight gain/obesity 12/16/2018 Constitutional No weight loss 12/16/2018 Eyes No eye pain 019 Eyes No vision change Ears/Nose/Throat/Neck No dizziness 12/16/2018 Ears/Nose/Throat/Neck No headache 12/16/2018 Ears/Nose/Throat/Neck otalgia 12/16/2018 Ears/Nose/Throat/Neck sore throat 12/16/2018 Cardiovascular No dyspnea 12/16/2018 Cardiovascular No palpitations 12/16/2018 Cardiovascular No syncope 12/16/2018 Cardiovascular No chest pain/pressure 12/16/2018 Cardiovascular No cardiac murmur 12/16/2018 Respiratory No chest congestion 12/16/2018 Respiratory No chest tightness 12/16/2018 Respiratory No cough 02/2019 Respiratory No asthma Respiratory No wheezing 12/16/2018 Gastrointestinal No abdominal pain 12/16/2018 Gastrointestinal No nausea 12/16/2018 Gastrointestinal No vomiting 12/16/2018 Gastrointestinal No diarrhea 12/16/2018 Genitourinary/Nephrology No dysuria 12/16/2018 Musculoskeletal No back pain 12/16/2018 Musculoskeletal No myalgias 12/16/2018 Dermatologic No rash 02/2019 Dermatologic No sores Neurologic No alteration of consciousness 12/16/2018 Neurologic No headache 0 12/16/2018 Psychiatric No anxiety 0 12/16/2018 Psychiatric No depression 12/16/2018 Hematologic/Lymphatic No abnormal ec chymoses 12/16/2018 Hematologic/Lymphatic No abnormal bl eeding and bruising 12/16/2018 Respiratory No asthma Respiratory No cough Respiratory No dyspnea 1 11/09/2017 Respiratory No pleuritic pain 09/09/2018 Respiratory No productive sputum 09/09/2018 Respiratory No wheezing 09/09/2018 Cardiovascular No arrhythmia 09/09/2018 Cardiovascular No chest pain/pressure 09/09/2018 Cardiovascular No edema 09/09/2018 Cardiovascular No exercise intolerance 09/09/2018 Cardiovascular No orthopnea 09/09/2018 Cardiovascular palpitations 09/09/2018 Endocrine hypothyroid Musculoskeletal joint complaint 08/28/2018 Cardiovascular chest pain/pressure 08/18/2018 Respiratory No asthma Respiratory No cough 02/2018 Respiratory No dyspnea 1 10/18/2017 Respiratory No pleuritic pain 08/18/2018 Respiratory No productive sputum 08/18/2018 Respiratory No wheezing 08/18/2018 Gastrointestinal No hemorrhoids 08/18/2018 Gastrointestinal No hepatitis 08/18/2018 Gastrointestinal No abdominal pain 08/18/2018 Gastrointestinal No constipation 08/18/2018 Gastrointestinal No diarrhea 08/18/2018 Gastrointestinal No gastroesophageal reflu x 08/18/2018 Gastrointestinal No melena 08/18/2018 Gastrointestinal No nausea 08/18/2018 Gastrointestinal No vomiting 08/18/2018 Constitutional No fatigue 06/24/2017 Constitutional No fever 06/24/2017 Ears/Nose/Throat/Neck otalgia 06/24/2017 Ears/Nose/Throat/Neck No sinus congestion 06/24/2017 Ears/Nose/Throat/Neck No sinusitis 06/24/2017 Respiratory No asthma Respiratory No cough 08/2017 Respiratory No dyspnea 0 06/24/2017 Respiratory No pleuritic pain 06/24/2017 Respiratory No productive sputum 06/24/2017 Respiratory No wheezing 06/24/2017 Dermatologic No rash 08/2017 Dermatologic No scar 08/2017 Musculoskeletal joint complaint 06/24/2017 Constitutional No night sweats 04/11/2017 Constitutional No fatigue 04/11/2017 Constitutional No fever 04/11/2017 Constitutional No insomnia 04/11/2017 Constitutional No weight loss 04/11/2017 Dermatologic No rash Dermatologic No scar Dermatologic arthropod bite 04/11/2017 Dermatologic cellulitis 04/11/2017 Constitutional No night sweats 01/18/2017 Constitutional No recent illness 01/18/2017 Constitutional No fatigue 01/18/2017 Constitutional No fever 01/18/2017 Constitutional No insomnia 01/18/2017 Constitutional No weight loss 01/18/2017 Eyes No eye pain 017 Eyes No photophobia 04/2017 Eyes No vision change Eyes No visual disturbance 01/18/2017 Ears/Nose/Throat/Neck nasal discharge 01/18/2017 Ears/Nose/Throat/Neck sinus congestion 01/18/2017 Ears/Nose/Throat/Neck sore throat 01/18/2017 Ears/Nose/Throat/Neck No dizziness 01/18/2017 Ears/Nose/Throat/Neck No eustachian tube dysfunction 01/18/2017 Ears/Nose/Throat/Neck No facial pain 01/18/2017 Ears/Nose/Throat/Neck No headache 01/18/2017 Ears/Nose/Throat/Neck No otalgia 01/18/2017 Ears/Nose/Throat/Neck No otorrhea 01/18/2017 Ears/Nose/Throat/Neck postnasal drip 01/18/2017 Cardiovascular No arrhythmia 01/18/2017 Cardiovascular No chest pain/pressure 01/18/2017 Cardiovascular No edema 01/18/2017 Cardiovascular No exercise intolerance 01/18/2017 Cardiovascular No orthopnea 01/18/2017 Cardiovascular No palpitations 01/18/2017 Respiratory cough 2016 Respiratory dyspnea 0 04/2017 Respiratory No pleuritic pain 01/18/2017 Respiratory No productive sputum 01/18/2017 Respiratory No wheezing 01/18/2017 Respiratory No asthma Respiratory No chest congestion 01/18/2017 Respiratory No chest tightness 01/18/2017 Dermatologic No rash 04/2017 Dermatologic No scar 04/2017 Hematologic/Lymphatic No abnormal ec chymoses 01/18/2017 Hematologic/Lymphatic No petechiae 01/18/2017 Hematologic/Lymphatic No abnormal bl eeding and bruising 01/18/2017 Hematologic/Lymphatic No anemia 01/18/2017 Hematologic/Lymphatic No lymph node enlargement/mass 01/18/2017 Constitutional weight gain/obesity 11/26/2016 Dermatologic rash 2016 Constitutional weight gain/obesity 08/23/2016 Cardiovascular No arrhythmia 08/23/2016 Cardiovascular No chest pain/pressure 08/23/2016 Cardiovascular No edema 08/23/2016 Cardiovascular No exercise intolerance 08/23/2016 Cardiovascular No orthopnea 08/23/2016 Cardiovascular No palpitations 08/23/2016 Constitutional No night sweats 06/14/2016 Constitutional No recent illness 06/14/2016 Constitutional No fatigue 06/14/2016 Constitutional No fever 06/14/2016 Constitutional No insomnia 06/14/2016 Constitutional No weight loss 06/14/2016 Cardiovascular No arrhythmia 06/14/2016 Cardiovascular No chest pain/pressure 06/14/2016 Cardiovascular No edema 06/14/2016 Cardiovascular No exercise intolerance 06/14/2016 Cardiovascular No orthopnea 06/14/2016 Cardiovascular No palpitations 06/14/2016 Respiratory No asthma Respiratory No cough 10/2015 Respiratory No dyspnea 0 06/14/2016 Respiratory No pleuritic pain 06/14/2016 Respiratory No productive sputum 06/14/2016 Respiratory No wheezing 06/14/2016 Gastrointestinal No hemorrhoids 06/14/2016 Gastrointestinal No hepatitis 06/14/2016 Gastrointestinal No abdominal pain 06/14/2016 Gastrointestinal No constipation 06/14/2016 Gastrointestinal No diarrhea 06/14/2016 Gastrointestinal No gastroesophageal reflu x 06/14/2016 Gastrointestinal No melena 06/14/2016 Gastrointestinal No nausea 06/14/2016 Gastrointestinal No vomiting 06/14/2016 Musculoskeletal arthralgia(s) 06/14/2016 Musculoskeletal joint complaint 06/14/2016 Musculoskeletal No swelling 06/14/2016 Dermatologic No rash 10/2015 Dermatologic No scar 10/2015 Ears/Nose/Throat/Neck otalgia 04/19/2016 Constitutional No night sweats 04/10/2016 Constitutional No recent illness 04/10/2016 Constitutional No fatigue 04/10/2016 Constitutional No fever 04/10/2016 Constitutional No insomnia 04/10/2016 Constitutional No weight loss 04/10/2016 Eyes No eye pain 016 Eyes No photophobia 03/15 Eyes No vision change Eyes No visual disturbance 04/10/2016 Ears/Nose/Throat/Neck No hearing loss 04/10/2016 Ears/Nose/Throat/Neck nasal discharge 04/10/2016 Ears/Nose/Throat/Neck sinus congestion 04/10/2016 Ears/Nose/Throat/Neck No sore throat 04/10/2016 Ears/Nose/Throat/Neck No dizziness 04/10/2016 Ears/Nose/Throat/Neck eustachian tub e dysfunction 04/10/2016 Ears/Nose/Throat/Neck No otorrhea 04/10/2016 Ears/Nose/Throat/Neck postnasal drip 04/10/2016 Ears/Nose/Throat/Neck otalgia 04/10/2016 Cardiovascular No arrhythmia 04/10/2016 Cardiovascular No chest pain/pressure 04/10/2016 Cardiovascular No edema 04/10/2016 Cardiovascular No exercise intolerance 04/10/2016 Cardiovascular No orthopnea 04/10/2016 Cardiovascular No palpitations 04/10/2016 Respiratory No asthma Respiratory No cough Respiratory No dyspnea 0 04/10/2016 Respiratory No pleuritic pain 04/10/2016 Respiratory No productive sputum 04/10/2016 Respiratory No wheezing 04/10/2016 Dermatologic No rash Dermatologic No scar Ears/Nose/Throat/Neck sore throat 11/22/2015 Constitutional No fever 11/22/2015 Respiratory No cough 06/2016 Gastrointestinal diarrhea 06/28/2015 Gastrointestinal No constipation 06/28/2015 Gastrointestinal hematochezia 06/28/2015 Constitutional No fever 05/02/2015 Musculoskeletal myalgias 05/02/2015 Musculoskeletal back pain 03/29/2015 Constitutional fatigue 0 03/29/2015 Constitutional weight gain/obesity 03/29/2015 Gastrointestinal No hemorrhoids 03/29/2015 Gastrointestinal No hepatitis 03/29/2015 Gastrointestinal No abdominal pain 03/29/2015 Gastrointestinal No constipation 03/29/2015 Gastrointestinal No diarrhea 03/29/2015 Gastrointestinal No gastroesophageal reflu x 03/29/2015 Gastrointestinal No melena 03/29/2015 Gastrointestinal No nausea 03/29/2015 Gastrointestinal No vomiting 03/29/2015 Neurologic paresthesia 1 12/01/2013 Gastrointestinal abdominal pain 07/19/2014 Gastrointestinal dyspepsia 07/19/2014 Constitutional No fever 12/25/2013 Ears/Nose/Throat/Neck sore throat 12/25/2013 Cardiovascular No arrhythmia 12/25/2013 Cardiovascular No cardiac murmur 12/25/2013 Respiratory cough 2013 Gastrointestinal No nausea 12/25/2013 Constitutional No fever 12/17/2013 Genitourinary/Nephrology No urinary frequency 12/17/2013 Genitourinary/Nephrology No urinary urgenc y 12/17/2013 Genitourinary/Nephrology No urinary incontinence 12/17/2013 Constitutional No chills 12/17/2013 Genitourinary/Nephrology dysuria 12/17/2013 Constitutional No night sweats 09/15/2013 Constitutional No fatigue 09/15/2013 Constitutional No fever 09/15/2013 Constitutional No insomnia 09/15/2013 Constitutional No weight loss 09/15/2013 Ears/Nose/Throat/Neck sore throat 09/15/2013 Respiratory cough 2012 Constitutional fatigue 1 10/14/2012 Constitutional No anorexia 08/14/2013 Constitutional No insomnia 08/14/2013 Constitutional No fever 08/14/2013 Ears/Nose/Throat/Neck nasal discharge 08/14/2013 Ears/Nose/Throat/Neck sore throat 08/14/2013 Respiratory cough 2012 Respiratory No COPD w/exac 08/14/2013 Cardiovascular No dyspnea 08/03/2013 Cardiovascular No chest pain/pressure 08/03/2013 Cardiovascular palpitations 08/03/2013 Constitutional No night sweats 08/03/2013 Constitutional No fatigue 08/03/2013 Constitutional No fever 08/03/2013 Constitutional No insomnia 08/03/2013 Constitutional No weight loss 08/03/2013 Ears/Nose/Throat/Neck headache 07/21/2013 Ears/Nose/Throat/Neck otalgia 07/21/2013 Ears/Nose/Throat/Neck sore throat 07/21/2013 Respiratory No cough 05/2013 Gastrointestinal gastroesophageal reflux 07/21/2013 Constitutional No fatigue 06/12/2013 Constitutional No fever 06/12/2013 Genitourinary/Nephrology No vaginal discharge 06/12/2013 Gastrointestinal gastroesophageal reflux 12/25/2012 Constitutional weight loss 12/25/2012 Constitutional No fever 10/30/2012 Ears/Nose/Throat/Neck No nasal discharge 10/30/2012 Ears/Nose/Throat/Neck No otalgia 10/30/2012 Ears/Nose/Throat/Neck sinus congestion 10/30/2012 Ears/Nose/Throat/Neck sore throat 10/30/2012 Respiratory cough 2012 Respiratory No cigarette smoking 10/30/2012 Gastrointestinal No abdominal pain 10/30/2012 Gastrointestinal No diarrhea 10/30/2012 Gastrointestinal No vomiting 10/30/2012 Genitourinary/Nephrology No menstrua l irregularity 10/30/2012 Genitourinary/Nephrology No 10/30/2012 Dermatologic No rash Dermatologic No sores Constitutional No night sweats 08/28/2012 Constitutional No fatigue 08/28/2012 Constitutional No fever 08/28/2012 Constitutional No insomnia 08/28/2012 Constitutional No weight loss 08/28/2012 Cardiovascular chest pain/pressure 05/27/2012 Gastrointestinal dyspepsia 05/27/2012 Constitutional No night sweats 04/30/2012 Constitutional No fatigue 04/30/2012 Constitutional No fever 04/30/2012 Constitutional No insomnia 04/30/2012 Constitutional No weight loss 04/30/2012 Gastrointestinal dyspepsia 04/30/2012 Eyes eye erythema 2011 Eyes eye discharge 02/17 Eyes No eye trauma 02/17 Ears/Nose/Throat/Neck nasal allergies 02/18/2012 Ears/Nose/Throat/Neck nasal discharge 02/18/2012 Ears/Nose/Throat/Neck No otalgia 02/18/2012 Ears/Nose/Throat/Neck sore throat 02/18/2012 Respiratory No cough 04/2012 Dermatologic No rash 04/2012 Dermatologic No sores Endocrine hypoglycemia 0 01/08/2012 Constitutional No fever 10/19/2011 Ears/Nose/Throat/Neck No nasal discharge 10/19/2011 Ears/Nose/Throat/Neck No otalgia 10/19/2011 Ears/Nose/Throat/Neck No sinus congestion 10/19/2011 Ears/Nose/Throat/Neck sore throat 10/19/2011 Respiratory cough 2011 Respiratory No cigarette smoking 10/19/2011 Gastrointestinal No diarrhea 10/19/2011 Gastrointestinal No vomiting 10/19/2011 Gastrointestinal No nausea 10/19/2011 Gastrointestinal gastroesophageal reflux 10/19/2011 Dermatologic No rash 03/2012 Dermatologic No sores Musculoskeletal low back pain 09/17/2011 Genitourinary/Nephrology flank pain 09/17/2011 Ears/Nose/Throat/Neck sore throat 07/05/2011 Gastrointestinal abdominal pain 05/31/2011 Gastrointestinal gastroesophageal reflux 05/31/2011 Gastrointestinal abdominal pain 04/11/2011 Gastrointestinal gastroesophageal reflux 04/11/2011 Psychiatric stress 04/11 Dermatologic acne vulgaris 04/11/2011 Constitutional No fever 03/13/2011 Constitutional chills Ears/Nose/Throat/Neck sore throat 03/13/2011 Ears/Nose/Throat/Neck No otalgia 03/13/2011 Ears/Nose/Throat/Neck sinus congestion 03/13/2011 Ears/Nose/Throat/Neck sinusitis 03/13/2011 Ears/Nose/Throat/Neck headache 03/13/2011 Ears/Nose/Throat/Neck nasal allergies 03/13/2011 Ears/Nose/Throat/Neck nasal discharge 03/13/2011 Respiratory cough 2010 Respiratory No cigarette smoking 03/13/2011 Respiratory No asthma Gastrointestinal No diarrhea 03/13/2011 Gastrointestinal No constipation 03/13/2011 Gastrointestinal No vomiting 03/13/2011 Gastrointestinal nausea 03/13/2011 Dermatologic No rash Dermatologic No sores Musculoskeletal joint complaint 11/30/2010 Musculoskeletal joint complaint 11/02/2010 Musculoskeletal No bone fracture 11/02/2010 Musculoskeletal bone pain 11/02/2010 Constitutional No fever 07/25/2010 Constitutional recent illness 07/25/2010 Ears/Nose/Throat/Neck nasal discharge 07/25/2010 Ears/Nose/Throat/Neck No otalgia 07/25/2010 Ears/Nose/Throat/Neck No sore throat 07/25/2010 Ears/Nose/Throat/Neck headache 07/25/2010 Ears/Nose/Throat/Neck No otitis media 07/25/2010 Ears/Nose/Throat/Neck sinus congestion 07/25/2010 Ears/Nose/Throat/Neck sinusitis 07/25/2010 Cardiovascular No cardiac murmur 07/25/2010 Cardiovascular No arrhythmia 07/25/2010 Cardiovascular No syncope 07/25/2010 Cardiovascular No hypertension 07/25/2010 Respiratory No cigarette smoking 07/25/2010 Respiratory cough 2009 Respiratory No asthma Gastrointestinal No constipation 07/25/2010 Gastrointestinal No diarrhea 07/25/2010 Gastrointestinal No vomiting 07/25/2010 Dermatologic No rash 09/2010 Dermatologic No sores Allergy/Immunology food allergy 07/25/2010 Constitutional No fever 01/02/2010 Constitutional fatigue 0 01/02/2010 Ears/Nose/Throat/Neck facial pain 01/02/2010 Ears/Nose/Throat/Neck nasal discharge 01/02/2010 Ears/Nose/Throat/Neck sinus congestion 01/02/2010 Respiratory cough 2009 Respiratory chest congestion 01/02/2010 Neurologic headache 12/13 Physical Exam Exam Name System Name It em Name Status Result Effective Dates Notes Full Exam - General Constitutional general appearance Overall: well nourished 05/25/2019 None Full Exam - General Constitutional general appearance Overall: in no acute distress 05/25/2019 None Full Exam - General Respiratory respiratory effort/rhythm Overall: no retractions 05/25/2019 None Full Exam - General Respiratory respiratory effort/rhythm Overall: normal rate 05/25/2019 None Full Exam - General Respiratory auscultation Overall: breath sounds clear bilater ally 05/25/2019 None Full Exam - General Cardiovascular auscultation of heart Overall: regular rate 05/25/2019 None Full Exam - General Cardiovascular auscultation of heart Overall: no murmurs 05/25/2019 None Full Exam - General Musculoskeletal spine, ribs and pelvis Sacroiliac joints: a normal exam 05/25/2019 None Full Exam - General Musculoskeletal spine, ribs and pelvis Sacroiliac joints: nontender 05/25/2019 None Full Exam - General Neurologic mental status Overall: alert 9 None Full Exam - General Neurologic mental status Overall: oriented 05/25/2019 None Full Exam - General Constitutional general appearance Overall: well nourished 05/06/2019 None Full Exam - General Constitutional general appearance Overall: well developed 05/06/2019 None Full Exam - General Constitutional general appearance Overall: in no acute distress 05/06/2019 None Full Exam - General Neurologic mental status Overall: alert 9 None Full Exam - General Neurologic mental status Overall: oriented 05/06/2019 None Full Exam - General Psychiatric mood and affect Overall: normal mood and affect 05/06/2019 None Full Exam - General Respiratory auscultation Overall: breath sounds clear bilater ally 05/06/2019 None Full Exam - General Cardiovascular auscultation of heart Overall: regular rate 05/06/2019 None Full Exam - General Cardiovascular auscultation of heart Overall: normal heart sounds 05/06/2019 None Full Exam - General Cardiovascular auscultation of heart Overall: no murmurs 05/06/2019 None Full Exam - General Constitutional general appearance Overall: well nourished 12/16/2018 None Full Exam - General Constitutional general appearance Overall: well developed 12/16/2018 None Full Exam - General Constitutional general appearance Overall: in no acute distress 12/16/2018 None Full Exam - General Eyes conjunctiva/eyelids Overall: conjunctiva clear 12/16/2018 None Full Exam - General Eyes conjunctiva/eyelids Overall: cornea clear 12/16/2018 None Full Exam - General Eyes conjunctiva/eyelids Overall: eyelids normal 12/16/2018 None Full Exam - General Eyes pupils and irises Overall: pupils equal, round, reacti ve to light and accomodation 12/16/2018 None Full Exam - General Ears/Nose/Throat otoscopic exam Right external auditory canal: erythematous 12/16/2018 None Full Exam - General Ears/Nose/Throat otoscopic exam Right external auditory canal: edematous 12/16/2018 Non e Full Exam - General Ears/Nose/Throat otoscopic exam Right external auditory canal: tender 12/16/2018 None Full Exam - General Ears/Nose/Throat otoscopic exam Right tympanic membrane: erythematous 12/16/2018 None Full Exam - General Ears/Nose/Throat oral cavity/pharynx/larynx Overall: oral mucosa clear 12/16/2018 None Full Exam - General Ears/Nose/Throat oral cavity/pharynx/larynx Posterior Pharynx: clear post nasal drainage 12/16/2018 mild erythema to posterior pharynx Full Exam - General Neck inspection of neck Overall: normal size 12/16/2018 None Full Exam - General Neck inspection of neck Overall: normal appearance 12/16/2018 None Full Exam - General Respiratory auscultation Overall: breath sounds clear bilater ally 12/16/2018 None Full Exam - General Respiratory respiratory effort/rhythm Overall: no retractions 12/16/2018 None Full Exam - General Respiratory respiratory effort/rhythm Overall: normal rate 12/16/2018 None Full Exam - General Cardiovascular auscultation of heart Overall: regular rate 12/16/2018 None Full Exam - General Cardiovascular auscultation of heart Overall: normal heart sounds 12/16/2018 None Full Exam - General Cardiovascular extremities Overall: No edema 12/16/2018 None Full Exam - General Lymphatic neck nodes Overall: anterior cervical chain brigitte ign 12/16/2018 None Full Exam - General Lymphatic neck nodes Overall: posterior cervical chain be nign 12/16/2018 None Full Exam - General Musculoskeletal gait and station Overall: normal gait 12/16/2018 None Full Exam - General Musculoskeletal gait and station Overall: normal station 12/16/2018 None Full Exam - General Musculoskeletal head and neck Overall: head atraumatic 12/16/2018 None Full Exam - General Musculoskeletal head and neck Overall: cervical spine benign 12/16/2018 None Full Exam - General Integument inspection of skin Overall: no rash, lesions 12/16/2018 None Full Exam - General Neurologic gait Overall: no ataxia, no unsteadiness 12/16/2018 None Full Exam - General Psychiatric orientation/consciousness Overall: oriented to person, place and time 12/16/2018 None Full Exam - General Psychiatric mood and affect Overall: normal mood and affect 12/16/2018 None Full Exam - General Constitutional general appearance Overall: well nourished 09/09/2018 None Full Exam - General Constitutional general appearance Overall: well developed 09/09/2018 None Full Exam - General Constitutional general appearance Overall: in no acute distress 09/09/2018 None Full Exam - General Respiratory auscultation Overall: breath sounds clear bilater ally 09/09/2018 None Full Exam - General Cardiovascular auscultation of heart Overall: regular rate 09/09/2018 None Full Exam - General Cardiovascular auscultation of heart Overall: normal heart sounds 09/09/2018 None Full Exam - General Cardiovascular auscultation of heart Overall: no murmurs 09/09/2018 None Full Exam - General Neurologic mental status Overall: alert 8 None Full Exam - General Neurologic mental status Overall: oriented 09/09/2018 None Full Exam - General Constitutional general appearance Overall: well nourished 08/28/2018 None Full Exam - General Constitutional general appearance Overall: well developed 08/28/2018 None Full Exam - General Constitutional general appearance Overall: in no acute distress 08/28/2018 None Full Exam - General Neurologic mental status Overall: alert 8 None Full Exam - General Neurologic mental status Overall: oriented 08/28/2018 None Full Exam - General Psychiatric mood and affect Overall: normal mood and affect 08/28/2018 None Full Exam - General Musculoskeletal gait and station Gait: symmetric 08/28/2018 None Full Exam - General Musculoskeletal right lower extremity Inspection - right knee: a normal exam 08/28/2018 None Full Exam - General Musculoskeletal right lower extremity Palpation - right knee: tender joint line 08/28/2018 medially Full Exam - General Musculoskeletal right lower extremity Palpation - right knee: crepitus 08/28/2018 popping with ROM Full Exam - General Constitutional general appearance Overall: well nourished 08/18/2018 None Full Exam - General Constitutional general appearance Overall: well developed 08/18/2018 None Full Exam - General Constitutional general appearance Overall: in no acute distress 08/18/2018 None Full Exam - General Neurologic mental status Overall: alert 8 None Full Exam - General Neurologic mental status Overall: oriented 08/18/2018 None Full Exam - General Psychiatric mood and affect Overall: normal mood and affect 08/18/2018 None Full Exam - General Respiratory auscultation Overall: breath sounds clear bilater ally 08/18/2018 None Full Exam - General Cardiovascular auscultation of heart Overall: regular rate 08/18/2018 None Full Exam - General Cardiovascular auscultation of heart Overall: normal heart sounds 08/18/2018 None Full Exam - General Cardiovascular auscultation of heart Overall: no murmurs 08/18/2018 None Full Exam - General Integument inspection of skin Overall: no rash, lesions 08/18/2018 None Full Exam - General Musculoskeletal spine, ribs and pelvis Overall: ribs benign 08/18/2018 None Full Exam - General Abdomen abdominal exam Overall: no masses 08/18/2018 None Full Exam - General Abdomen abdominal exam Overall: normal bowel sounds 08/18/2018 None Full Exam - General Abdomen abdominal exam Overall: soft 08/18/2018 None Full Exam - General Abdomen abdominal exam Epigastric: tender to palpation 08/18/2018 None Full Exam - General Abdomen abdominal exam Left upper quadrant: tender to palpa tion 08/18/2018 and reproduces pain in ch est Full Exam - General Constitutional general appearance Overall: well nourished 06/24/2017 None Full Exam - General Constitutional general appearance Overall: well developed 06/24/2017 None Full Exam - General Constitutional general appearance Overall: in no acute distress 06/24/2017 None Full Exam - General Ears/Nose/Throat internal nose Drainage: clear 06/24/2017 None Full Exam - General Ears/Nose/Throat oral cavity/pharynx/larynx Oropharynx: postnasal drainage 06/24/2017 None Full Exam - General Respiratory auscultation Overall: breath sounds clear bilater ally 06/24/2017 None Full Exam - General Cardiovascular auscultation of heart Overall: regular rate 06/24/2017 None Full Exam - General Cardiovascular auscultation of heart Overall: normal heart sounds 06/24/2017 None Full Exam - General Cardiovascular auscultation of heart Overall: no murmurs 06/24/2017 None Full Exam - General Neurologic mental status Overall: alert 7 None Full Exam - General Neurologic mental status Overall: oriented 06/24/2017 None Full Exam - General Psychiatric mood and affect Overall: normal mood and affect 06/24/2017 None Full Exam - General Ears/Nose/Throat otoscopic exam Left external auditory canal: partial cerumen occlusion 06/24/2017 None Full Exam - General Ears/Nose/Throat otoscopic exam Right external auditory canal: a normal exam 06/24/2017 None Full Exam - General Ears/Nose/Throat otoscopic exam Left tympanic membrane: a normal exam 06/24/2017 None Full Exam - General Ears/Nose/Throat otoscopic exam Right tympanic membrane: a normal exam 06/24/2017 None Full Exam - General Musculoskeletal head and neck Left TMJ: tender 06/24/2017 None Full Exam - General Musculoskeletal head and neck Left TMJ: crepitus 06/24/2017 None Full Exam - General Constitutional general appearance Overall: well nourished 04/11/2017 None Full Exam - General Constitutional general appearance Overall: well developed 04/11/2017 None Full Exam - General Constitutional general appearance Overall: in no acute distress 04/11/2017 None Full Exam - General Neurologic mental status Overall: alert 7 None Full Exam - General Neurologic mental status Overall: oriented 04/11/2017 None Full Exam - General Psychiatric mood and affect Overall: normal mood and affect 04/11/2017 None Full Exam - General Integument inspection of skin Location: right arm 04/11/2017 upper medial with small area of scabbing but no erythema and only minimal tenderness Full Exam - General Constitutional general appearance Overall: well nourished 01/18/2017 None Full Exam - General Constitutional general appearance Overall: well developed 01/18/2017 None Full Exam - General Constitutional general appearance Overall: in no acute distress 01/18/2017 None Full Exam - General Eyes conjunctiva/eyelids Overall: conjunctiva clear 01/18/2017 None Full Exam - General Eyes conjunctiva/eyelids Overall: eyelids normal 01/18/2017 None Full Exam - General Ears/Nose/Throat external ear Overall: normal appearance 01/18/2017 None Full Exam - General Ears/Nose/Throat external nose Overall: benign appearance 01/18/2017 None Full Exam - General Ears/Nose/Throat otoscopic exam Overall: external auditory canals clear 01/18/2017 None Full Exam - General Ears/Nose/Throat internal nose Left nasal cavity: mucosal edema 01/18/2017 None Full Exam - General Ears/Nose/Throat internal nose Right nasal cavity: mucosal edema 01/18/2017 None Full Exam - General Ears/Nose/Throat internal nose Sinus tenderness: absent 01/18/2017 None Full Exam - General Ears/Nose/Throat internal nose Drainage: clear 01/18/2017 None Full Exam - General Ears/Nose/Throat lips/teeth/gingiva Overall: benign lips 01/18/2017 None Full Exam - General Ears/Nose/Throat lips/teeth/gingiva Overall: normal dentition 01/18/2017 None Full Exam - General Ears/Nose/Throat oral cavity/pharynx/larynx Overall: oral mucosa clear 01/18/2017 None Full Exam - General Ears/Nose/Throat oral cavity/pharynx/larynx Overall: oropharyngeal mucosa clear 01/18/2017 None Full Exam - General Respiratory auscultation Overall: breath sounds clear bilater ally 01/18/2017 None Full Exam - General Respiratory respiratory effort/rhythm Overall: no retractions 01/18/2017 None Full Exam - General Respiratory respiratory effort/rhythm Overall: normal rate 01/18/2017 None Full Exam - General Cardiovascular auscultation of heart Overall: regular rate 01/18/2017 None Full Exam - General Cardiovascular auscultation of heart Overall: normal heart sounds 01/18/2017 None Full Exam - General Lymphatic neck nodes Overall: anterior cervical chain brigitte ign 01/18/2017 None Full Exam - General Lymphatic neck nodes Overall: posterior cervical chain be nign 01/18/2017 None Full Exam - General Integument inspection of skin Overall: no rash, lesions 01/18/2017 None Full Exam - General Ears/Nose/Throat otoscopic exam Left tympanic membrane: air- fluid level 01/18/2017 None Full Exam - General Ears/Nose/Throat otoscopic exam Right tympanic membrane: air- fluid level 01/18/2017 None Full Exam - General Ears/Nose/Throat otoscopic exam Otorrhea: absent 01/18/2017 None Full Exam - General Ears/Nose/Throat otoscopic exam Perforation: absent 01/18/2017 None Full Exam - General Neurologic mental status Overall: alert 7 None Full Exam - General Neurologic mental status Overall: oriented 01/18/2017 None Full Exam - General Constitutional general appearance Overall: well nourished 11/26/2016 None Full Exam - General Constitutional general appearance Overall: well developed 11/26/2016 None Full Exam - General Constitutional general appearance Overall: in no acute distress 11/26/2016 None Full Exam - General Neurologic mental status Overall: alert 7 None Full Exam - General Neurologic mental status Overall: oriented 11/26/2016 None Full Exam - General Psychiatric mood and affect Overall: normal mood and affect 11/26/2016 None Full Exam - General Integument inspection of skin Location: left arm 11/26/2016 forearm with 1cm ringed papule with mild UV fluorescence Full Exam - General Constitutional general appearance Overall: well nourished 08/23/2016 None Full Exam - General Constitutional general appearance Overall: well developed 08/23/2016 None Full Exam - General Constitutional general appearance Overall: in no acute distress 08/23/2016 None Full Exam - General Neurologic mental status Overall: alert 6 None Full Exam - General Neurologic mental status Overall: oriented 08/23/2016 None Full Exam - General Psychiatric mood and affect Overall: normal mood and affect 08/23/2016 None Full Exam - General Respiratory auscultation Overall: breath sounds clear bilater ally 08/23/2016 None Full Exam - General Cardiovascular auscultation of heart Overall: regular rate 08/23/2016 None Full Exam - General Cardiovascular auscultation of heart Overall: normal heart sounds 08/23/2016 None Full Exam - General Cardiovascular auscultation of heart S3 (ventricular gallop): present 08/23/2016 None Full Exam - General Cardiovascular extremities Overall: no clubbing 08/23/2016 None Full Exam - General Cardiovascular extremities Overall: No edema 08/23/2016 None Full Exam - General Cardiovascular extremities Overall: No cyanosis 08/23/2016 None Full Exam - General Constitutional general appearance Overall: well nourished 06/14/2016 None Full Exam - General Constitutional general appearance Overall: well developed 06/14/2016 None Full Exam - General Constitutional general appearance Overall: in no acute distress 06/14/2016 None Full Exam - General Eyes conjunctiva/eyelids Overall: conjunctiva clear 06/14/2016 None Full Exam - General Ears/Nose/Throat lips/teeth/gingiva Overall: benign lips 06/14/2016 None Full Exam - General Ears/Nose/Throat oral cavity/pharynx/larynx Overall: oral mucosa clear 06/14/2016 None Full Exam - General Respiratory respiratory effort/rhythm Overall: no retractions 06/14/2016 None Full Exam - General Cardiovascular inspection of pedal pulses Overall: strong, equal bilaterally 06/14/2016 None Full Exam - General Cardiovascular extremities Overall: No edema 06/14/2016 None Full Exam - General Cardiovascular extremities Overall: No cyanosis 06/14/2016 None Full Exam - General Cardiovascular extremities Overall: no clubbing 06/14/2016 None Full Exam - General Musculoskeletal left lower extremity Inspection - left knee: swelling 06/14/2016 None Full Exam - General Musculoskeletal left lower extremity Palpation - left knee: small effusion 06/14/2016 None Full Exam - General Musculoskeletal left lower extremity Palpation - left knee: crepitus 06/14/2016 None Full Exam - General Musculoskeletal left lower extremity ROM - left knee: crepitus 06/14/2016 None Full Exam - General Musculoskeletal left lower extremity ROM - left knee: pain with flexion 06/14/2016 None Full Exam - General Musculoskeletal left lower extremity ROM - left knee: pain with extension 06/14/2016 None Full Exam - General Musculoskeletal left lower extremity Stability - left knee: a normal exam 06/14/2016 None Full Exam - General Musculoskeletal left lower extremity Muscle Strength/Tone - left knee: a normal exam 06/14/2016 None Full Exam - General Integument inspection of skin Overall: no rash, lesions 06/14/2016 None Full Exam - General Neurologic mental status Overall: alert 6 None Full Exam - General Neurologic mental status Overall: oriented 06/14/2016 None Full Exam - General Constitutional general appearance Overall: well nourished 04/19/2016 None Full Exam - General Constitutional general appearance Overall: well developed 04/19/2016 None Full Exam - General Constitutional general appearance Overall: in no acute distress 04/19/2016 None Full Exam - General Respiratory auscultation Overall: breath sounds clear bilater ally 04/19/2016 None Full Exam - General Ears/Nose/Throat otoscopic exam Left tympanic membrane: air- fluid level 04/19/2016 None Full Exam - General Ears/Nose/Throat otoscopic exam Left tympanic membrane: retraction pocket 04/19/2016 None Full Exam - General Ears/Nose/Throat otoscopic exam Right tympanic membrane: a normal exam 04/19/2016 None Full Exam - General Ears/Nose/Throat oral cavity/pharynx/larynx Overall: oral mucosa clear 04/19/2016 None Full Exam - General Psychiatric mood and affect Overall: normal mood and affect 04/19/2016 None Full Exam - General Cardiovascular auscultation of heart Overall: regular rate 04/19/2016 None Full Exam - General Cardiovascular auscultation of heart Overall: normal heart sounds 04/19/2016 None Full Exam - General Cardiovascular auscultation of heart Overall: no murmurs 04/19/2016 None Full Exam - General Constitutional general appearance Overall: well nourished 04/10/2016 None Full Exam - General Constitutional general appearance Overall: well developed 04/10/2016 None Full Exam - General Constitutional general appearance Overall: in no acute distress 04/10/2016 None Full Exam - General Eyes conjunctiva/eyelids Overall: conjunctiva clear 04/10/2016 None Full Exam - General Eyes conjunctiva/eyelids Overall: eyelids normal 04/10/2016 None Full Exam - General Ears/Nose/Throat external ear Overall: normal appearance 04/10/2016 None Full Exam - General Ears/Nose/Throat external nose Overall: benign appearance 04/10/2016 None Full Exam - General Ears/Nose/Throat otoscopic exam Overall: external auditory canals clear 04/10/2016 None Full Exam - General Ears/Nose/Throat otoscopic exam Left tympanic membrane: effusion 04/10/2016 None Full Exam - General Ears/Nose/Throat otoscopic exam Right tympanic membrane: effusion 04/10/2016 None Full Exam - General Ears/Nose/Throat otoscopic exam Right tympanic membrane: erythematous 04/10/2016 very mild Full Exam - General Ears/Nose/Throat internal nose Overall: bilateral nasal cavities clear 04/10/2016 None Full Exam - General Ears/Nose/Throat internal nose Overall: no sinus tenderness 04/10/2016 None Full Exam - General Ears/Nose/Throat internal nose Overall: no drainage 04/10/2016 None Full Exam - General Ears/Nose/Throat lips/teeth/gingiva Overall: benign lips 04/10/2016 None Full Exam - General Ears/Nose/Throat oral cavity/pharynx/larynx Overall: oral mucosa clear 04/10/2016 None Full Exam - General Ears/Nose/Throat oral cavity/pharynx/larynx Overall: oropharyngeal mucosa clear 04/10/2016 None Full Exam - General Respiratory auscultation Overall: breath sounds clear bilater ally 04/10/2016 None Full Exam - General Respiratory respiratory effort/rhythm Overall: no retractions 04/10/2016 None Full Exam - General Respiratory respiratory effort/rhythm Overall: normal rate 04/10/2016 None Full Exam - General Cardiovascular auscultation of heart Overall: regular rate 04/10/2016 None Full Exam - General Cardiovascular auscultation of heart Overall: normal heart sounds 04/10/2016 None Full Exam - General Cardiovascular auscultation of heart Overall: no murmurs 04/10/2016 None Full Exam - General Lymphatic neck nodes Overall: anterior cervical chain brigitte ign 04/10/2016 None Full Exam - General Lymphatic neck nodes Overall: posterior cervical chain be nign 04/10/2016 None Full Exam - General Integument inspection of skin Overall: no rash, lesions 04/10/2016 None Full Exam - General Neurologic mental status Overall: alert 6 None Full Exam - General Neurologic mental status Overall: oriented 04/10/2016 None Full Exam - General Constitutional general appearance Overall: well nourished 11/22/2015 None Full Exam - General Constitutional general appearance Overall: well developed 11/22/2015 None Full Exam - General Constitutional general appearance Overall: in no acute distress 11/22/2015 None Full Exam - General Ears/Nose/Throat otoscopic exam Overall: tympanic membranes clear 11/22/2015 None Full Exam - General Ears/Nose/Throat otoscopic exam Overall: external auditory canals clear 11/22/2015 None Full Exam - General Respiratory auscultation Overall: breath sounds clear bilater ally 11/22/2015 None Full Exam - General Cardiovascular auscultation of heart Overall: regular rate 11/22/2015 None Full Exam - General Cardiovascular auscultation of heart Overall: normal heart sounds 11/22/2015 None Full Exam - General Cardiovascular auscultation of heart Overall: no murmurs 11/22/2015 None Full Exam - General Psychiatric mood and affect Overall: normal mood and affect 11/22/2015 None Full Exam - General Ears/Nose/Throat oral cavity/pharynx/larynx Oropharynx: erythema 11/22/2015 None Full Exam - General Ears/Nose/Throat oral cavity/pharynx/larynx Left tonsil: erythematous 11/22/2015 None Full Exam - General Ears/Nose/Throat oral cavity/pharynx/larynx Right tonsil: erythematous 11/22/2015 None Full Exam - General Neurologic mental status Overall: alert 6 None Full Exam - General Neurologic mental status Overall: oriented 11/22/2015 None Full Exam - General Constitutional general appearance Overall: well nourished 06/28/2015 None Full Exam - General Constitutional general appearance Overall: well developed 06/28/2015 None Full Exam - General Constitutional general appearance Overall: in no acute distress 06/28/2015 None Full Exam - General Neurologic mental status Overall: alert 5 None Full Exam - General Neurologic mental status Overall: oriented 06/28/2015 None Full Exam - General Psychiatric mood and affect Overall: normal mood and affect 06/28/2015 None Full Exam - General Abdomen abdominal exam Overall: no masses 06/28/2015 None Full Exam - General Abdomen abdominal exam Overall: no tenderness 06/28/2015 None Full Exam - General Abdomen abdominal exam Overall: normal bowel sounds 06/28/2015 None Full Exam - General Abdomen abdominal exam Overall: soft 06/28/2015 None Full Exam - General Abdomen rectal exam Inspection: hemorrhoid 06/28/2015 tag inferiorly Full Exam - General Abdomen rectal exam Sphincter tone: a normal exam 06/28/2015 None Full Exam - General Abdomen rectal exam Palpation: tenderness 06/28/2015 with some irregularity like fissure or t ear Full Exam - General Abdomen stool sample obtained Overall: normal appearance 06/28/2015 None Full Exam - General Abdomen stool sample obtained Overall: occult blood negative 06/28/2015 None Full Exam - General Constitutional general appearance Overall: well nourished 05/02/2015 None Full Exam - General Constitutional general appearance Overall: well developed 05/02/2015 None Full Exam - General Constitutional general appearance Overall: in no acute distress 05/02/2015 None Full Exam - General Musculoskeletal right lower extremity Calf inspection: swelling 05/02/2015 right calf appears a duarte le larger than left, (right calf 16.5 inches, left calf 16 inches) Full Exam - General Musculoskeletal right lower extremity Calf inspection: tender 05/02/2015 tender along saphenous ve in area up to mid thigh. Also indicates pain/pressure in popliteal fossa and some lateral calf & thigh "swelling" and "tightness" Full Exam - General Neurologic mental status Overall: alert 5 None Full Exam - General Neurologic mental status Overall: oriented 05/02/2015 None Full Exam - General Psychiatric mood and affect Overall: normal mood and affect 05/02/2015 None Full Exam - General Constitutional general appearance Overall: well nourished 03/29/2015 None Full Exam - General Constitutional general appearance Overall: well developed 03/29/2015 None Full Exam - General Constitutional general appearance Overall: in no acute distress 03/29/2015 None Full Exam - General Neurologic mental status Overall: alert 5 None Full Exam - General Neurologic mental status Overall: oriented 03/29/2015 None Full Exam - General Psychiatric mood and affect Overall: normal mood and affect 03/29/2015 None Full Exam - General Respiratory auscultation Overall: breath sounds clear bilater ally 03/29/2015 None Full Exam - General Cardiovascular auscultation of heart Overall: regular rate 03/29/2015 None Full Exam - General Cardiovascular auscultation of heart Overall: normal heart sounds 03/29/2015 None Full Exam - General Cardiovascular auscultation of heart S3 (ventricular gallop): present 03/29/2015 None Full Exam - General Constitutional general appearance Overall: well nourished 02/15/2015 None Full Exam - General Constitutional general appearance Overall: well developed 02/15/2015 None Full Exam - General Constitutional general appearance Overall: in no acute distress 02/15/2015 None Full Exam - General Neurologic mental status Overall: alert 5 None Full Exam - General Neurologic mental status Overall: oriented 02/15/2015 None Full Exam - General Psychiatric mood and affect Overall: normal mood and affect 02/15/2015 None Full Exam - General Ears/Nose/Throat otoscopic exam Overall: external auditory canals clear 02/15/2015 None Full Exam - General Ears/Nose/Throat otoscopic exam Left tympanic membrane: air- fluid level 02/15/2015 None Full Exam - General Ears/Nose/Throat otoscopic exam Right tympanic membrane: air- fluid level 02/15/2015 None Full Exam - General Ears/Nose/Throat internal nose Turbinates: hypertrophy 02/15/2015 None Full Exam - General Ears/Nose/Throat oral cavity/pharynx/larynx Overall: oral mucosa clear 02/15/2015 None Full Exam - General Respiratory auscultation Overall: breath sounds clear bilater ally 02/15/2015 None Full Exam - General Cardiovascular auscultation of heart Overall: regular rate 02/15/2015 None Full Exam - General Cardiovascular auscultation of heart Overall: normal heart sounds 02/15/2015 None Full Exam - General Cardiovascular auscultation of heart Overall: no murmurs 02/15/2015 None Full Exam - General Constitutional general appearance Overall: well nourished 12/30/2014 None Full Exam - General Constitutional general appearance Overall: well developed 12/30/2014 None Full Exam - General Constitutional general appearance Overall: in no acute distress 12/30/2014 None Full Exam - General Neurologic mental status Overall: alert 5 None Full Exam - General Neurologic mental status Overall: oriented 12/30/2014 None Full Exam - General Psychiatric mood and affect Overall: normal mood and affect 12/30/2014 None Full Exam - General Abdomen abdominal exam Overall: no masses 12/30/2014 None Full Exam - General Abdomen abdominal exam Overall: normal bowel sounds 12/30/2014 None Full Exam - General Abdomen abdominal exam Overall: soft 12/30/2014 None Full Exam - General Abdomen abdominal exam Epigastric: tender to palpation 12/30/2014 None Full Exam - General Respiratory auscultation Overall: breath sounds clear bilater ally 12/30/2014 None Full Exam - General Cardiovascular auscultation of heart Overall: regular rate 12/30/2014 None Full Exam - General Cardiovascular auscultation of heart Overall: normal heart sounds 12/30/2014 None Full Exam - General Cardiovascular auscultation of heart Overall: no murmurs 12/30/2014 None Full Exam - General Musculoskeletal spine, ribs and pelvis Spine: tender @ thoracic spine 12/30/2014 None Full Exam - General Constitutional general appearance Overall: well nourished 09/30/2014 None Full Exam - General Constitutional general appearance Overall: well developed 09/30/2014 None Full Exam - General Constitutional general appearance Overall: in no acute distress 09/30/2014 None Full Exam - General Neurologic mental status Overall: alert 4 None Full Exam - General Neurologic mental status Overall: oriented 09/30/2014 None Full Exam - General Psychiatric mood and affect Overall: normal mood and affect 09/30/2014 None Full Exam - General Musculoskeletal right upper extremity Inspection - right wrist: a normal exam 09/30/2014 None Full Exam - General Musculoskeletal right upper extremity Palpation - right wrist: positive Tiffany's test 09/30/2014 None Full Exam - General Musculoskeletal right upper extremity Palpation - right wrist: positive Tinel's sign 09/30/2014 None Full Exam - General Musculoskeletal right upper extremity Palpation - right wrist: positive reverse Phalen's 09/30/2014 None Full Exam - General Musculoskeletal right upper extremity Palpation - right wrist: tender 09/30/2014 None Full Exam - General Musculoskeletal right upper extremity ROM - right wrist: pain with flexion 09/30/2014 None Full Exam - General Musculoskeletal right upper extremity ROM - right wrist: pain with extension 09/30/2014 None Full Exam - General Musculoskeletal right upper extremity ROM - right wrist: pain with radial bending 09/30/2014 None Full Exam - General Musculoskeletal right upper extremity ROM - right wrist: pain with ulnar bending 09/30/2014 None Full Exam - General Constitutional general appearance Overall: well nourished 07/19/2014 None Full Exam - General Constitutional general appearance Overall: well developed 07/19/2014 None Full Exam - General Constitutional general appearance Overall: in no acute distress 07/19/2014 None Full Exam - General Neurologic mental status Overall: alert 4 None Full Exam - General Neurologic mental status Overall: oriented 07/19/2014 None Full Exam - General Psychiatric mood and affect Overall: normal mood and affect 07/19/2014 None Full Exam - General Abdomen abdominal exam Overall: no masses 07/19/2014 None Full Exam - General Abdomen abdominal exam Overall: normal bowel sounds 07/19/2014 None Full Exam - General Abdomen abdominal exam Overall: soft 07/19/2014 None Full Exam - General Abdomen abdominal exam Epigastric: tender to palpation 07/19/2014 None Full Exam - General Constitutional general appearance Overall: well nourished 06/01/2014 None Full Exam - General Constitutional general appearance Overall: well developed 06/01/2014 None Full Exam - General Constitutional general appearance Overall: in no acute distress 06/01/2014 None Full Exam - General Neurologic mental status Overall: alert 4 None Full Exam - General Neurologic mental status Overall: oriented 06/01/2014 None Full Exam - General Psychiatric mood and affect Overall: normal mood and affect 06/01/2014 None Full Exam - General Musculoskeletal spine, ribs and pelvis Spine: tender @ lumbar spin e 06/01/2014 None Full Exam - General Musculoskeletal spine, ribs and pelvis Sacroiliac joints: tender right sacroiliac joint 06/01/2014 None Full Exam - General Musculoskeletal spine, ribs and pelvis Sacroiliac joints: tender left sacroiliac joint 06/01/2014 None Full Exam - General Musculoskeletal gait and station Gait: antalgic 06/01/2014 None Full Exam - General Musculoskeletal gait and station Station: pelvic tilt 06/01/2014 None Full Exam - General Constitutional general appearance Overall: well nourished 12/25/2013 None Full Exam - General Constitutional general appearance Overall: well developed 12/25/2013 None Full Exam - General Constitutional general appearance Overall: in no acute distress 12/25/2013 None Full Exam - General Ears/Nose/Throat external ear Overall: normal appearance 12/25/2013 None Full Exam - General Respiratory auscultation Overall: breath sounds clear bilater ally 12/25/2013 None Full Exam - General Ears/Nose/Throat otoscopic exam Left external auditory canal: partial cerumen occlusion 12/25/2013 None Full Exam - General Ears/Nose/Throat otoscopic exam Right tympanic membrane: effusion 12/25/2013 None Full Exam - General Ears/Nose/Throat otoscopic exam Right external auditory canal: a normal exam 12/25/2013 None Full Exam - General Ears/Nose/Throat otoscopic exam Left tympanic membrane: not visualized 12/25/2013 None Full Exam - General Psychiatric orientation/consciousness Overall: oriented to person, place and time 12/25/2013 None Full Exam - General Ears/Nose/Throat oral cavity/pharynx/larynx Left tonsil: exudate 12/25/2013 None Full Exam - General Ears/Nose/Throat oral cavity/pharynx/larynx Left tonsil: erythematous 12/25/2013 None Full Exam - General Ears/Nose/Throat oral cavity/pharynx/larynx Left tonsil: cryptic 12/25/2013 None Full Exam - General Ears/Nose/Throat oral cavity/pharynx/larynx Right tonsil: erythematous 12/25/2013 None Full Exam - General Ears/Nose/Throat oral cavity/pharynx/larynx Right tonsil: cryptic 12/25/2013 None Full Exam - General Ears/Nose/Throat oral cavity/pharynx/larynx Right tonsil: exudate 12/25/2013 None Full Exam - General Ears/Nose/Throat oral cavity/pharynx/larynx Right tonsil: enlarged 12/25/2013 None Full Exam - General Ears/Nose/Throat oral cavity/pharynx/larynx Right tonsil: 1+ size 12/25/2013 None Full Exam - General Ears/Nose/Throat oral cavity/pharynx/larynx Left tonsil: 1+ size 12/25/2013 None Full Exam - General Neurologic mental status Overall: alert 4 None Full Exam - General Neurologic mental status Overall: oriented 12/25/2013 None Full Exam - General Constitutional general appearance Overall: well nourished 12/17/2013 None Full Exam - General Constitutional general appearance Overall: well developed 12/17/2013 None Full Exam - General Constitutional general appearance Overall: in no acute distress 12/17/2013 None Full Exam - General Psychiatric orientation/consciousness Overall: oriented to person, place and time 12/17/2013 None Full Exam - General Respiratory auscultation Overall: breath sounds clear bilater ally 12/17/2013 None Full Exam - General Cardiovascular auscultation of heart Overall: normal heart sounds 12/17/2013 None Full Exam - General Cardiovascular auscultation of heart Overall: regular rate 12/17/2013 None Full Exam - General Abdomen abdominal exam Left upper quadrant: non-tender to p alpation 12/17/2013 None Full Exam - General Abdomen abdominal exam Left lower quadrant: non-tender to p alpation 12/17/2013 None Full Exam - General Abdomen abdominal exam Right upper quadrant: non-tender to palpation 12/17/2013 None Full Exam - General Abdomen abdominal exam Right lower quadrant: non-tender to palpation 12/17/2013 None Full Exam - General Abdomen abdominal exam Epigastric: non-tender to palpation 12/17/2013 None Full Exam - General Abdomen abdominal exam Suprapubic: non-tender to palpation 12/17/2013 None Full Exam - General Abdomen abdominal exam Periumbilical: non-tender to palpati on 12/17/2013 None Full Exam - General Constitutional general appearance Overall: well nourished 09/15/2013 None Full Exam - General Constitutional general appearance Overall: well developed 09/15/2013 None Full Exam - General Constitutional general appearance Overall: in no acute distress 09/15/2013 None Full Exam - General Respiratory auscultation Basilar: coarse 09/15/20 13 None Full Exam - General Cardiovascular auscultation of heart Overall: regular rate 09/15/2013 None Full Exam - General Cardiovascular auscultation of heart Overall: normal heart sounds 09/15/2013 None Full Exam - General Cardiovascular auscultation of heart Overall: no murmurs 09/15/2013 None Full Exam - General Respiratory auscultation Apical: clear 09/15/2013 None Full Exam - General Ears/Nose/Throat otoscopic exam Overall: external auditory canals clear 09/15/2013 None Full Exam - General Ears/Nose/Throat otoscopic exam Overall: tympanic membranes clear 09/15/2013 None Full Exam - General Ears/Nose/Throat internal nose Turbinates: hypertrophy 09/15/2013 None Full Exam - General Ears/Nose/Throat internal nose Drainage: clear 09/15/2013 None Full Exam - General Ears/Nose/Throat oral cavity/pharynx/larynx Overall: oral mucosa clear 09/15/2013 None Full Exam - General Neurologic mental status Overall: alert 3 None Full Exam - General Neurologic mental status Overall: oriented 09/15/2013 None Full Exam - General Psychiatric mood and affect Overall: normal mood and affect 09/15/2013 None Full Exam - General Constitutional general appearance Overall: well nourished 08/14/2013 None Full Exam - General Constitutional general appearance Overall: well developed 08/14/2013 None Full Exam - General Constitutional general appearance Overall: in no acute distress 08/14/2013 None Full Exam - General Ears/Nose/Throat otoscopic exam Overall: tympanic membranes clear 08/14/2013 None Full Exam - General Ears/Nose/Throat otoscopic exam Left external auditory canal: a normal exam 08/14/2013 None Full Exam - General Ears/Nose/Throat otoscopic exam Right external auditory canal: minimal cerumen 08/14/2013 None Full Exam - General Ears/Nose/Throat internal nose Turbinates: pale 08/14/2013 None Full Exam - General Ears/Nose/Throat internal nose Turbinates: bilateral edema 08/14/2013 marked Full Exam - General Ears/Nose/Throat internal nose Drainage: clear 08/14/2013 None Full Exam - General Ears/Nose/Throat oral cavity/pharynx/larynx Overall: oropharyngeal mucosa clear 08/14/2013 None Full Exam - General Respiratory auscultation Overall: breath sounds clear bilater ally 08/14/2013 None Full Exam - General Cardiovascular auscultation of heart Overall: regular rate 08/14/2013 None Full Exam - General Cardiovascular auscultation of heart Overall: normal heart sounds 08/14/2013 None Full Exam - General Cardiovascular auscultation of heart Overall: no murmurs 08/14/2013 None Full Exam - General Lymphatic neck nodes Overall: anterior cervical chain brigitte ign 08/14/2013 None Full Exam - General Lymphatic neck nodes Overall: posterior cervical chain be nign 08/14/2013 None Full Exam - General Neurologic mental status Overall: alert 3 None Full Exam - General Neurologic mental status Overall: oriented 08/14/2013 None Full Exam - General Constitutional general appearance Overall: well nourished 08/03/2013 None Full Exam - General Constitutional general appearance Overall: well developed 08/03/2013 None Full Exam - General Constitutional general appearance Overall: in no acute distress 08/03/2013 None Full Exam - General Neurologic mental status Overall: alert 3 None Full Exam - General Neurologic mental status Overall: oriented 08/03/2013 None Full Exam - General Psychiatric mood and affect Overall: normal mood and affect 08/03/2013 None Full Exam - General Respiratory auscultation Overall: breath sounds clear bilater ally 08/03/2013 None Full Exam - General Cardiovascular auscultation of heart Overall: regular rate 08/03/2013 None Full Exam - General Cardiovascular auscultation of heart Overall: normal heart sounds 08/03/2013 None Full Exam - General Cardiovascular auscultation of heart Overall: no murmurs 08/03/2013 None Full Exam - General Cardiovascular extremities Overall: no clubbing 08/03/2013 None Full Exam - General Cardiovascular extremities Overall: No edema 08/03/2013 None Full Exam - General Cardiovascular extremities Overall: No cyanosis 08/03/2013 None Full Exam - General Ears/Nose/Throat otoscopic exam Left tympanic membrane: air- fluid level 07/21/2013 None Full Exam - General Ears/Nose/Throat otoscopic exam Right tympanic membrane: a normal exam 07/21/2013 None Full Exam - General Ears/Nose/Throat oral cavity/pharynx/larynx Oropharynx: erythema 07/21/2013 None Full Exam - General Respiratory percussion Overall: benign percussion 07/21/2013 None Full Exam - General Constitutional general appearance Overall: well nourished 07/21/2013 None Full Exam - General Constitutional general appearance Overall: well developed 07/21/2013 None Full Exam - General Constitutional general appearance Overall: in no acute distress 07/21/2013 None Full Exam - General Psychiatric orientation/consciousness Overall: oriented to person, place and time 07/21/2013 None Full Exam - General Cardiovascular auscultation of heart Overall: regular rate 07/21/2013 None Full Exam - General Cardiovascular auscultation of heart Overall: normal heart sounds 07/21/2013 None Full Exam - General Constitutional general appearance Overall: well nourished 06/12/2013 None Full Exam - General Constitutional general appearance Overall: well developed 06/12/2013 None Full Exam - General Constitutional general appearance Overall: in no acute distress 06/12/2013 None Full Exam - General Genitourinary labia and vagina Overall: normal hair distribution 06/12/2013 None Full Exam - General Genitourinary labia and vagina Overall: no lesions 06/12/2013 None Full Exam - General Genitourinary labia and vagina Vaginal discharge: white 06/12/2013 thick white, minimal odor Full Exam - General Neurologic mental status Overall: alert 3 None Full Exam - General Neurologic mental status Overall: oriented 06/12/2013 None Full Exam - General Psychiatric mood and affect Overall: normal mood and affect 06/12/2013 None Full Exam - General Constitutional general appearance Overall: well nourished 12/25/2012 None Full Exam - General Constitutional general appearance Overall: well developed 12/25/2012 None Full Exam - General Constitutional general appearance Overall: in no acute distress 12/25/2012 None Full Exam - General Respiratory auscultation Overall: breath sounds clear bilater ally 12/25/2012 None Full Exam - General Cardiovascular auscultation of heart Overall: regular rate 12/25/2012 None Full Exam - General Cardiovascular auscultation of heart Overall: normal heart sounds 12/25/2012 None Full Exam - General Cardiovascular auscultation of heart Overall: no murmurs 12/25/2012 None Full Exam - General Abdomen abdominal exam Overall: no tenderness 12/25/2012 None Full Exam - General Abdomen abdominal exam Overall: normal bowel sounds 12/25/2012 None Full Exam - General Abdomen abdominal exam Overall: soft 12/25/2012 None Full Exam - General Abdomen abdominal exam Overall: no masses 12/25/2012 None Full Exam - General Neurologic mental status Overall: alert 3 None Full Exam - General Neurologic mental status Overall: oriented 12/25/2012 None Full Exam - General Psychiatric mood and affect Overall: normal mood and affect 12/25/2012 None Full Exam - General Constitutional general appearance Overall: well nourished 10/30/2012 None Full Exam - General Constitutional general appearance Overall: well developed 10/30/2012 None Full Exam - General Constitutional general appearance Overall: in no acute distress 10/30/2012 None Full Exam - General Ears/Nose/Throat otoscopic exam Overall: external auditory canals clear 10/30/2012 None Full Exam - General Ears/Nose/Throat otoscopic exam Overall: tympanic membranes clear 10/30/2012 None Full Exam - General Ears/Nose/Throat lips/teeth/gingiva Overall: benign lips 10/30/2012 None Full Exam - General Ears/Nose/Throat oral cavity/pharynx/larynx Oropharynx: erythema 10/30/2012 None Full Exam - General Ears/Nose/Throat oral cavity/pharynx/larynx Right tonsil: 1+ size 10/30/2012 None Full Exam - General Ears/Nose/Throat oral cavity/pharynx/larynx Right tonsil: erythematous 10/30/2012 None Full Exam - General Ears/Nose/Throat oral cavity/pharynx/larynx Right tonsil: exudate 10/30/2012 2 small white pustules vi sualized Full Exam - General Ears/Nose/Throat oral cavity/pharynx/larynx Left tonsil: erythematous 10/30/2012 None Full Exam - General Ears/Nose/Throat oral cavity/pharynx/larynx Left tonsil: 1+ size 10/30/2012 None Full Exam - General Ears/Nose/Throat oral cavity/pharynx/larynx Left tonsil: exudate 10/30/2012 None Full Exam - General Ears/Nose/Throat oral cavity/pharynx/larynx Oropharynx: exudate 10/30/2012 None Full Exam - General Respiratory auscultation Overall: breath sounds clear bilater ally 10/30/2012 None Full Exam - General Respiratory respiratory effort/rhythm Overall: no retractions 10/30/2012 None Full Exam - General Respiratory respiratory effort/rhythm Overall: normal rate 10/30/2012 no coughing noted during exam Full Exam - General Cardiovascular auscultation of heart Overall: regular rate 10/30/2012 None Full Exam - General Cardiovascular auscultation of heart Overall: normal heart sounds 10/30/2012 None Full Exam - General Lymphatic neck nodes Overall: anterior cervical chain brigitte ign 10/30/2012 None Full Exam - General Lymphatic neck nodes Overall: posterior cervical chain be nign 10/30/2012 None Full Exam - General Psychiatric orientation/consciousness Overall: oriented to person, place and time 10/30/2012 None Full Exam - General Constitutional general appearance Overall: well nourished 08/28/2012 None Full Exam - General Constitutional general appearance Overall: well developed 08/28/2012 None Full Exam - General Constitutional general appearance Overall: in no acute distress 08/28/2012 None Full Exam - General Neurologic mental status Overall: alert 2 None Full Exam - General Neurologic mental status Overall: oriented 08/28/2012 None Full Exam - General Psychiatric mood and affect Overall: normal mood and affect 08/28/2012 None Full Exam - General Cardiovascular auscultation of heart Overall: regular rate 08/28/2012 None Full Exam - General Cardiovascular auscultation of heart Overall: normal heart sounds 08/28/2012 None Full Exam - General Respiratory auscultation Overall: breath sounds clear bilater ally 08/28/2012 None Full Exam - General Abdomen abdominal exam Overall: no masses 08/28/2012 None Full Exam - General Abdomen abdominal exam Overall: no tenderness 08/28/2012 None Full Exam - General Abdomen abdominal exam Overall: normal bowel sounds 08/28/2012 None Full Exam - General Abdomen abdominal exam Overall: soft 08/28/2012 None Full Exam - General Constitutional general appearance Overall: well nourished 05/27/2012 None Full Exam - General Constitutional general appearance Overall: well developed 05/27/2012 None Full Exam - General Constitutional general appearance Overall: in no acute distress 05/27/2012 None Full Exam - General Neurologic mental status Overall: alert 2 None Full Exam - General Neurologic mental status Overall: oriented 05/27/2012 None Full Exam - General Psychiatric mood and affect Overall: normal mood and affect 05/27/2012 None Full Exam - General Abdomen abdominal exam Overall: no masses 05/27/2012 None Full Exam - General Abdomen abdominal exam Overall: normal bowel sounds 05/27/2012 None Full Exam - General Abdomen abdominal exam Overall: soft 05/27/2012 None Full Exam - General Abdomen abdominal exam Epigastric: tender to palpation 05/27/2012 None Full Exam - General Cardiovascular auscultation of heart Overall: regular rate 05/27/2012 None Full Exam - General Cardiovascular auscultation of heart Overall: normal heart sounds 05/27/2012 None Full Exam - General Cardiovascular auscultation of heart Overall: no murmurs 05/27/2012 None Full Exam - General Respiratory auscultation Overall: breath sounds clear bilater ally 05/27/2012 None Full Exam - General Constitutional general appearance Overall: well nourished 04/30/2012 None Full Exam - General Constitutional general appearance Overall: well developed 04/30/2012 None Full Exam - General Constitutional general appearance Overall: in no acute distress 04/30/2012 None Full Exam - General Neurologic mental status Overall: alert 2 None Full Exam - General Neurologic mental status Overall: oriented 04/30/2012 None Full Exam - General Psychiatric mood and affect Overall: normal mood and affect 04/30/2012 None Full Exam - General Abdomen abdominal exam Overall: no masses 04/30/2012 None Full Exam - General Abdomen abdominal exam Epigastric: tender to palpation 04/30/2012 None Full Exam - General Cardiovascular auscultation of heart Overall: regular rate 04/30/2012 None Full Exam - General Cardiovascular auscultation of heart Overall: normal heart sounds 04/30/2012 None Full Exam - General Cardiovascular auscultation of heart Overall: no murmurs 04/30/2012 None Full Exam - General Respiratory auscultation Overall: breath sounds clear bilater ally 04/30/2012 None Full Exam - General Cardiovascular extremities Overall: no clubbing 04/30/2012 None Full Exam - General Cardiovascular extremities Overall: No edema 04/30/2012 None Full Exam - General Cardiovascular extremities Overall: No cyanosis 04/30/2012 None Full Exam - General Constitutional general appearance Overall: well nourished 02/18/2012 None Full Exam - General Constitutional general appearance Overall: well developed 02/18/2012 None Full Exam - General Constitutional general appearance Overall: in no acute distress 02/18/2012 None Full Exam - General Eyes conjunctiva/eyelids Left conjunctiva: erythema 02/18/2012 mild Full Exam - General Eyes conjunctiva/eyelids Right conjunctiva: erythema 02/18/2012 has discharge present als o Full Exam - General Eyes pupils and irises Overall: pupils equal, round, reacti ve to light and accomodation 02/18/2012 None Full Exam - General Eyes ophthalmoscopic exam Overall: benign arterioles 02/18/2012 None Full Exam - General Eyes ophthalmoscopic exam Overall: benign fundi 02/18/2012 None Full Exam - General Eyes ophthalmoscopic exam Overall: sharp optic disc 02/18/2012 None Full Exam - General Ears/Nose/Throat otoscopic exam Left external auditory canal: partial cerumen occlusion 02/18/2012 None Full Exam - General Ears/Nose/Throat otoscopic exam Left tympanic membrane: not visualized 02/18/2012 None Full Exam - General Ears/Nose/Throat otoscopic exam Right tympanic membrane: a normal exam 02/18/2012 None Full Exam - General Ears/Nose/Throat otoscopic exam Right external auditory canal: minimal cerumen 02/18/2012 None Full Exam - General Ears/Nose/Throat lips/teeth/gingiva Overall: benign lips 02/18/2012 None Full Exam - General Ears/Nose/Throat lips/teeth/gingiva Overall: normal dentition 02/18/2012 None Full Exam - General Ears/Nose/Throat lips/teeth/gingiva Overall: benign gingiva 02/18/2012 None Full Exam - General Ears/Nose/Throat oral cavity/pharynx/larynx Oropharynx: erythema 02/18/2012 mild Full Exam - General Respiratory auscultation Overall: breath sounds clear bilater ally 02/18/2012 None Full Exam - General Respiratory respiratory effort/rhythm Overall: no retractions 02/18/2012 None Full Exam - General Respiratory respiratory effort/rhythm Overall: normal rate 02/18/2012 None Full Exam - General Cardiovascular auscultation of heart Overall: regular rate 02/18/2012 None Full Exam - General Cardiovascular auscultation of heart Overall: normal heart sounds 02/18/2012 None Full Exam - General Lymphatic neck nodes Overall: anterior cervical chain brigitte ign 02/18/2012 None Full Exam - General Lymphatic neck nodes Overall: posterior cervical chain be nign 02/18/2012 None Full Exam - General Psychiatric orientation/consciousness Overall: oriented to person, place and time 02/18/2012 None Full Exam - General Constitutional general appearance Overall: well nourished 01/08/2012 None Full Exam - General Constitutional general appearance Overall: well developed 01/08/2012 None Full Exam - General Constitutional general appearance Overall: in no acute distress 01/08/2012 None Full Exam - General Neurologic mental status Overall: alert 2 None Full Exam - General Neurologic mental status Overall: oriented 01/08/2012 None Full Exam - General Psychiatric mood and affect Overall: normal mood and affect 01/08/2012 None Full Exam - General Constitutional general appearance Overall: well nourished 10/19/2011 None Full Exam - General Constitutional general appearance Overall: well developed 10/19/2011 None Full Exam - General Constitutional general appearance Overall: in no acute distress 10/19/2011 None Full Exam - General Ears/Nose/Throat otoscopic exam Overall: external auditory canals clear 10/19/2011 None Full Exam - General Ears/Nose/Throat otoscopic exam Overall: tympanic membranes clear 10/19/2011 None Full Exam - General Ears/Nose/Throat lips/teeth/gingiva Overall: benign lips 10/19/2011 None Full Exam - General Ears/Nose/Throat lips/teeth/gingiva Overall: normal dentition 10/19/2011 None Full Exam - General Ears/Nose/Throat lips/teeth/gingiva Overall: benign gingiva 10/19/2011 None Full Exam - General Ears/Nose/Throat oral cavity/pharynx/larynx Oropharynx: erythema 10/19/2011 None Full Exam - General Respiratory auscultation Overall: breath sounds clear bilater ally 10/19/2011 None Full Exam - General Respiratory respiratory effort/rhythm Overall: no retractions 10/19/2011 None Full Exam - General Respiratory respiratory effort/rhythm Overall: normal rate 10/19/2011 None Full Exam - General Cardiovascular auscultation of heart Overall: regular rate 10/19/2011 None Full Exam - General Cardiovascular auscultation of heart Overall: normal heart sounds 10/19/2011 None Full Exam - General Lymphatic neck nodes Left anterior cervical chain: number of palpable nodes: 1 10/19/2011 None Full Exam - General Lymphatic neck nodes Left anterior cervical chain: size ( cm): 1 10/19/2011 None Full Exam - General Lymphatic neck nodes Left anterior cervical chain: tender 10/19/2011 None Full Exam - General Lymphatic neck nodes Left anterior cervical chain: mobile 10/19/2011 None Full Exam - General Lymphatic neck nodes Right anterior cervical chain: numbe r of palpable nodes: 1 10/19/2011 None Full Exam - General Lymphatic neck nodes Right anterior cervical chain: size (cm): 10/19/2011 None Full Exam - General Lymphatic neck nodes Right anterior cervical chain: tende r 10/19/2011 None Full Exam - General Lymphatic neck nodes Right anterior cervical chain: mobil e 10/19/2011 None Full Exam - General Psychiatric orientation/consciousness Overall: oriented to person, place and time 10/19/2011 None Full Exam - General Constitutional general appearance Overall: in no acute distress 09/17/2011 None Full Exam - General Constitutional general appearance Overall: well developed 09/17/2011 None Full Exam - General Constitutional general appearance Overall: well nourished 09/17/2011 None Full Exam - General Neurologic mental status Overall: alert 1 None Full Exam - General Neurologic mental status Overall: oriented 09/17/2011 None Full Exam - General Cardiovascular auscultation of heart Overall: no murmurs 09/17/2011 None Full Exam - General Cardiovascular auscultation of heart Overall: regular rate 09/17/2011 None Full Exam - General Cardiovascular auscultation of heart Overall: normal heart sounds 09/17/2011 None Full Exam - General Cardiovascular auscultation of heart S1: a normal exam 09/17/2011 None Full Exam - General Cardiovascular auscultation of heart S2: a normal exam 09/17/2011 None Full Exam - General Cardiovascular auscultation of heart Rhythm: regular rhythm 09/17/2011 None Full Exam - General Cardiovascular auscultation of heart Rate: regular rate 09/17/2011 None Full Exam - General Cardiovascular auscultation of heart S3 (ventricular gallop): present 09/17/2011 None Full Exam - General Psychiatric mood and affect Overall: normal mood and affect 09/17/2011 None Full Exam - General Musculoskeletal spine, ribs and pelvis Spine: tender @ thoracic spine 09/17/2011 None Full Exam - General Musculoskeletal spine, ribs and pelvis Spine: tender @ lumbar spin e 09/17/2011 None Full Exam - General Abdomen abdominal exam Overall: no masses 09/17/2011 None Full Exam - General Abdomen abdominal exam Overall: normal bowel sounds 09/17/2011 None Full Exam - General Abdomen abdominal exam Overall: soft 09/17/2011 None Full Exam - General Abdomen abdominal exam Suprapubic: tender to palpation 09/17/2011 None Full Exam - General Respiratory auscultation Right upper lung field: a normal exa m 09/17/2011 None Full Exam - General Respiratory auscultation Right middle lung field: a normal ex am 09/17/2011 None Full Exam - General Respiratory auscultation Right lower lung field: a normal exa m 09/17/2011 None Full Exam - General Respiratory auscultation Left lower lung field: a normal exam 09/17/2011 None Full Exam - General Respiratory auscultation Overall: breath sounds clear bilater ally 09/17/2011 None Full Exam - General Respiratory auscultation Left upper lung field: a normal exam 09/17/2011 None Full Exam - General Respiratory auscultation Diffuse: a normal exam 09/17/2011 None Full Exam - General Respiratory auscultation Left lower lung field: a normal exam 07/05/2011 None Full Exam - General Respiratory auscultation Overall: breath sounds clear bilater ally 07/05/2011 None Full Exam - General Respiratory auscultation Left upper lung field: a normal exam 07/05/2011 None Full Exam - General Respiratory auscultation Diffuse: a normal exam 07/05/2011 None Full Exam - General Cardiovascular auscultation of heart Overall: no murmurs 07/05/2011 None Full Exam - General Cardiovascular auscultation of heart Overall: regular rate 07/05/2011 None Full Exam - General Cardiovascular auscultation of heart Overall: normal heart sounds 07/05/2011 None Full Exam - General Cardiovascular auscultation of heart S1: a normal exam 07/05/2011 None Full Exam - General Cardiovascular auscultation of heart S2: a normal exam 07/05/2011 None Full Exam - General Cardiovascular auscultation of heart Rhythm: regular rhythm 07/05/2011 None Full Exam - General Cardiovascular auscultation of heart Rate: regular rate 07/05/2011 None Full Exam - General Cardiovascular extremities Overall: no clubbing 07/05/2011 None Full Exam - General Cardiovascular extremities Overall: No edema 07/05/2011 None Full Exam - General Cardiovascular extremities Overall: No cyanosis 07/05/2011 None Full Exam - General Ears/Nose/Throat otoscopic exam Overall: external auditory canals clear 07/05/2011 None Full Exam - General Constitutional general appearance Overall: in no acute distress 07/05/2011 None Full Exam - General Constitutional general appearance Overall: well developed 07/05/2011 None Full Exam - General Constitutional general appearance Overall: well nourished 07/05/2011 None Full Exam - General Neurologic mental status Overall: alert 1 None Full Exam - General Neurologic mental status Overall: oriented 07/05/2011 None Full Exam - General Psychiatric mood and affect Overall: normal mood and affect 07/05/2011 None Full Exam - General Respiratory auscultation Right upper lung field: a normal exa m 07/05/2011 None Full Exam - General Respiratory auscultation Right middle lung field: a normal ex am 07/05/2011 None Full Exam - General Respiratory auscultation Right lower lung field: a normal exa m 07/05/2011 None Full Exam - General Ears/Nose/Throat otoscopic exam Overall: tympanic membranes clear 07/05/2011 None Full Exam - General Ears/Nose/Throat internal nose Turbinates: hypertrophy 07/05/2011 None Full Exam - General Ears/Nose/Throat internal nose Drainage: clear 07/05/2011 None Full Exam - General Ears/Nose/Throat oral cavity/pharynx/larynx Overall: oral mucosa clear 07/05/2011 None Full Exam - General Ears/Nose/Throat oral cavity/pharynx/larynx Oropharynx: erythema 07/05/2011 None Full Exam - General Neck inspection of neck Overall: normal size 07/05/2011 None Full Exam - General Neck inspection of neck Overall: no masses 07/05/2011 None Full Exam - General Constitutional general appearance Overall: in no acute distress 05/31/2011 None Full Exam - General Constitutional general appearance Overall: well developed 05/31/2011 None Full Exam - General Constitutional general appearance Overall: well nourished 05/31/2011 None Full Exam - General Neurologic mental status Overall: alert 1 None Full Exam - General Neurologic mental status Overall: oriented 05/31/2011 None Full Exam - General Psychiatric mood and affect Overall: normal mood and affect 05/31/2011 None Full Exam - General Abdomen abdominal exam Overall: no masses 05/31/2011 None Full Exam - General Abdomen abdominal exam Overall: normal bowel sounds 05/31/2011 None Full Exam - General Abdomen abdominal exam Overall: soft 05/31/2011 None Full Exam - General Abdomen abdominal exam Epigastric: tender to palpation 05/31/2011 None Full Exam - General Abdomen abdominal exam Left upper quadrant: tender to palpa tion 05/31/2011 None Full Exam - General Respiratory auscultation Right upper lung field: a normal exa m 05/31/2011 None Full Exam - General Respiratory auscultation Right middle lung field: a normal ex am 05/31/2011 None Full Exam - General Respiratory auscultation Right lower lung field: a normal exa m 05/31/2011 None Full Exam - General Respiratory auscultation Left lower lung field: a normal exam 05/31/2011 None Full Exam - General Respiratory auscultation Overall: breath sounds clear bilater ally 05/31/2011 None Full Exam - General Respiratory auscultation Left upper lung field: a normal exam 05/31/2011 None Full Exam - General Respiratory auscultation Diffuse: a normal exam 05/31/2011 None Full Exam - General Cardiovascular auscultation of heart Overall: no murmurs 05/31/2011 None Full Exam - General Cardiovascular auscultation of heart Overall: regular rate 05/31/2011 None Full Exam - General Cardiovascular auscultation of heart Overall: normal heart sounds 05/31/2011 None Full Exam - General Cardiovascular auscultation of heart S1: a normal exam 05/31/2011 None Full Exam - General Cardiovascular auscultation of heart S2: a normal exam 05/31/2011 None Full Exam - General Cardiovascular auscultation of heart Rhythm: regular rhythm 05/31/2011 None Full Exam - General Cardiovascular auscultation of heart Rate: regular rate 05/31/2011 None Full Exam - General Cardiovascular auscultation of heart S3 (ventricular gallop): present 05/31/2011 None Full Exam - General Constitutional general appearance Overall: in no acute distress 04/11/2011 None Full Exam - General Constitutional general appearance Overall: well developed 04/11/2011 None Full Exam - General Constitutional general appearance Overall: well nourished 04/11/2011 None Full Exam - General Cardiovascular auscultation of heart S2: a normal exam 04/11/2011 None Full Exam - General Cardiovascular auscultation of heart Rhythm: regular rhythm 04/11/2011 None Full Exam - General Cardiovascular auscultation of heart Rate: regular rate 04/11/2011 None Full Exam - General Abdomen abdominal exam Overall: no masses 04/11/2011 None Full Exam - General Abdomen abdominal exam Overall: normal bowel sounds 04/11/2011 None Full Exam - General Abdomen abdominal exam Overall: soft 04/11/2011 None Full Exam - General Abdomen abdominal exam Epigastric: tender to palpation 04/11/2011 None Full Exam - General Neurologic mental status Overall: alert 1 None Full Exam - General Neurologic mental status Overall: oriented 04/11/2011 None Full Exam - General Psychiatric mood and affect Overall: normal mood and affect 04/11/2011 None Full Exam - General Respiratory auscultation Right upper lung field: a normal exa m 04/11/2011 None Full Exam - General Respiratory auscultation Right middle lung field: a normal ex am 04/11/2011 None Full Exam - General Respiratory auscultation Right lower lung field: a normal exa m 04/11/2011 None Full Exam - General Respiratory auscultation Left lower lung field: a normal exam 04/11/2011 None Full Exam - General Respiratory auscultation Overall: breath sounds clear bilater ally 04/11/2011 None Full Exam - General Respiratory auscultation Left upper lung field: a normal exam 04/11/2011 None Full Exam - General Respiratory auscultation Diffuse: a normal exam 04/11/2011 None Full Exam - General Cardiovascular auscultation of heart Overall: no murmurs 04/11/2011 None Full Exam - General Cardiovascular auscultation of heart Overall: regular rate 04/11/2011 None Full Exam - General Cardiovascular auscultation of heart Overall: normal heart sounds 04/11/2011 None Full Exam - General Cardiovascular auscultation of heart S1: a normal exam 04/11/2011 None Full Exam - General Constitutional general appearance Overall: well nourished 03/13/2011 None Full Exam - General Constitutional general appearance Overall: in no acute distress 03/13/2011 None Full Exam - General Constitutional general appearance Overall: well developed 03/13/2011 None Full Exam - General Eyes conjunctiva/eyelids Overall: conjunctiva clear 03/13/2011 None Full Exam - General Eyes conjunctiva/eyelids Overall: cornea clear 03/13/2011 None Full Exam - General Eyes pupils and irises Overall: pupils equal, round, reacti ve to light and accomodation 03/13/2011 None Full Exam - General Ears/Nose/Throat otoscopic exam Right tympanic membrane: retraction pocket 03/13/2011 None Full Exam - General Ears/Nose/Throat otoscopic exam Right tympanic membrane: air- fluid level 03/13/2011 mild Full Exam - General Ears/Nose/Throat otoscopic exam Left tympanic membrane: air- fluid level 03/13/2011 None Full Exam - General Ears/Nose/Throat lips/teeth/gingiva Overall: benign lips 03/13/2011 None Full Exam - General Ears/Nose/Throat lips/teeth/gingiva Overall: normal dentition 03/13/2011 None Full Exam - General Ears/Nose/Throat lips/teeth/gingiva Overall: benign gingiva 03/13/2011 None Full Exam - General Ears/Nose/Throat oral cavity/pharynx/larynx Overall: oral mucosa clear 03/13/2011 None Full Exam - General Ears/Nose/Throat oral cavity/pharynx/larynx Overall: tonsils benign 03/13/2011 None Full Exam - General Ears/Nose/Throat oral cavity/pharynx/larynx Overall: oropharyngeal mucosa clear 03/13/2011 None Full Exam - General Respiratory auscultation Overall: breath sounds clear bilater ally 03/13/2011 None Full Exam - General Respiratory respiratory effort/rhythm Overall: no retractions 03/13/2011 None Full Exam - General Respiratory respiratory effort/rhythm Overall: normal rate 03/13/2011 cough Full Exam - General Cardiovascular auscultation of heart Overall: normal heart sounds 03/13/2011 None Full Exam - General Cardiovascular auscultation of heart Overall: regular rate 03/13/2011 None Full Exam - General Psychiatric orientation/consciousness Overall: oriented to person, place and time 03/13/2011 None Full Exam - General Lymphatic neck nodes Overall: anterior cervical chain brigitte ign 03/13/2011 None Full Exam - General Lymphatic neck nodes Overall: posterior cervical chain be nign 03/13/2011 None Full Exam - General Constitutional general appearance Overall: well nourished 11/30/2010 None Full Exam - General Constitutional general appearance Overall: well developed 11/30/2010 None Full Exam - General Constitutional general appearance Overall: in no acute distress 11/30/2010 None Full Exam - General Neurologic mental status Overall: alert 1 None Full Exam - General Neurologic mental status Overall: oriented 11/30/2010 None Full Exam - General Psychiatric mood and affect Overall: normal mood and affect 11/30/2010 None Full Exam - General Musculoskeletal right lower extremity Palpation - right foot: tender 11/30/2010 mild laterally--no swelling Full Exam - General Constitutional general appearance Overall: well nourished 11/02/2010 None Full Exam - General Constitutional general appearance Overall: well developed 11/02/2010 None Full Exam - General Constitutional general appearance Overall: in no acute distress 11/02/2010 None Full Exam - General Constitutional general appearance Assistive Device: crutches 11/02/2010 None Full Exam - General Neurologic mental status Overall: alert 1 None Full Exam - General Neurologic mental status Overall: oriented 11/02/2010 None Full Exam - General Psychiatric mood and affect Overall: normal mood and affect 11/02/2010 None Full Exam - General Musculoskeletal right lower extremity Inspection - right ankle: a normal exam 11/02/2010 None Full Exam - General Musculoskeletal right lower extremity Palpation - right ankle: tenderness @ ankle 11/02/2010 laterally Full Exam - General Musculoskeletal right lower extremity ROM - right ankle: pain with eversion 11/02/2010 None Full Exam - General Musculoskeletal right lower extremity ROM - right ankle: pain with inversion 11/02/2010 None Full Exam - General Musculoskeletal right lower extremity Stability - right ankle: subluxed 11/02/2010 None Full Exam - General Eyes pupils and irises Overall: pupils equal, round, reacti ve to light and accomodation 07/25/2010 None Full Exam - General Ears/Nose/Throat external ear Overall: normal appearance 07/25/2010 None Full Exam - General Ears/Nose/Throat otoscopic exam Overall: external auditory canals clear 07/25/2010 None Full Exam - General Ears/Nose/Throat otoscopic exam Overall: tympanic membranes clear 07/25/2010 None Full Exam - General Ears/Nose/Throat oral cavity/pharynx/larynx Overall: oral mucosa clear 07/25/2010 None Full Exam - General Ears/Nose/Throat oral cavity/pharynx/larynx Overall: tonsils benign 07/25/2010 None Full Exam - General Ears/Nose/Throat oral cavity/pharynx/larynx Overall: oropharyngeal mucosa clear 07/25/2010 None Full Exam - General Respiratory auscultation Overall: breath sounds clear bilater ally 07/25/2010 None Full Exam - General Respiratory respiratory effort/rhythm Overall: no retractions 07/25/2010 None Full Exam - General Respiratory respiratory effort/rhythm Overall: normal rate 07/25/2010 None Full Exam - General Psychiatric orientation/consciousness Overall: oriented to person, place and time 07/25/2010 None Full Exam - General Neurologic mental status Overall: alert 0 None Full Exam - General Neurologic mental status Overall: oriented 07/25/2010 None Full Exam - General Constitutional general appearance Overall: well nourished 07/25/2010 None Full Exam - General Cardiovascular auscultation of heart Overall: regular rate 07/25/2010 None Full Exam - General Cardiovascular auscultation of heart Overall: normal heart sounds 07/25/2010 None Full Exam - General Eyes conjunctiva/eyelids Overall: conjunctiva clear 07/25/2010 None Full Exam - General Eyes conjunctiva/eyelids Overall: cornea clear 07/25/2010 None Full Exam - General Constitutional general appearance Overall: well developed 07/25/2010 None Full Exam - General Constitutional general appearance Overall: in no acute distress 07/25/2010 None Full Exam - General Constitutional general appearance Overall: well nourished 01/02/2010 None Full Exam - General Constitutional general appearance Overall: well developed 01/02/2010 None Full Exam - General Constitutional general appearance Overall: in no acute distress 01/02/2010 None Full Exam - General Ears/Nose/Throat otoscopic exam Overall: external auditory canals clear 01/02/2010 None Full Exam - General Ears/Nose/Throat otoscopic exam Overall: tympanic membranes clear 01/02/2010 None Full Exam - General Ears/Nose/Throat internal nose Turbinates: hypertrophy 01/02/2010 None Full Exam - General Ears/Nose/Throat internal nose Drainage: clear 01/02/2010 None Full Exam - General Ears/Nose/Throat oral cavity/pharynx/larynx Oral mucosa: a normal exam 01/02/2010 None Full Exam - General Ears/Nose/Throat oral cavity/pharynx/larynx Oropharynx: postnasal drainage 01/02/2010 None Full Exam - General Respiratory auscultation Left lower lung field: crackles 01/02/2010 None Full Exam - General Respiratory auscultation Left upper lung field: a normal exam 01/02/2010 None Full Exam - General Respiratory auscultation Right lower lung field: diminished 01/02/2010 None Full Exam - General Respiratory auscultation Right upper lung field: a normal exa m 01/02/2010 None Procedures Procedure Codes Date URINE CULTURE/ COLON Y COUNT CPT-4: 59527 05/25/2019 STREP A ASSAY W/OPTIC CPT-4: 43633 12/16/2018 URINE CULTURE/ COLON Y COUNT CPT-4: 22583 12/02/2018 URINALYSIS NONAUTO W /O SCOPE CPT-4: 09465 10/21/2017 URINE CULTURE/ COLON Y COUNT CPT-4: 35590 10/21/2017 STREP A ASSAY W/OPTIC CPT-4: 35788 11/22/2015 ROUTINE VENIPUNCTURE CPT-4: 32503 10/03/2015 ASSAY OF FREE THYROXINE CPT-4: 19788 10/03/2015 ASSAY THYROID STIM H ORMONE CPT-4: 97121 10/03/2015 COMPREHEN METABOLIC PANEL CPT-4: 52090 10/03/2015 COMPLETE CBC W/AUTO DIFF WBC CPT-4: 93492 10/03/2015 LIPID PANEL CPT-4: 10727 10/03/2015 URINALYSIS NONAUTO W /O SCOPE CPT-4: 88477 08/01/2015 URINE CULTURE/ COLON Y COUNT CPT-4: 40446 08/01/2015 STREP A ASSAY W/OPTIC CPT-4: 60912 12/25/2013 URINALYSIS NONAUTO W /O SCOPE CPT-4: 67418 12/17/2013 THER/PROPH/DIAG INJ SC/IM CPT-4: 25390 07/21/2013 METHYLPREDNISOLONE 4 0 MG INJ CPT-4: J1030 07/21/2013 TRIAMCINOLONE ACET I [place] NOS CPT-4: J3301 07/21/2013 C WET GA CPT-4: 06824 06/12/2013 ROUTINE VENIPUNCTURE CPT-4: 04179 12/25/2012 METABOLIC PANEL TOTA L CA CPT-4: 18101 12/25/2012 ASSAY OF INSULIN CPT-4: 17603 12/25/2012 ROUTINE VENIPUNCTURE CPT-4: 20634 08/27/2012 COMPREHEN METABOLIC PANEL CPT-4: 40573 08/27/2012 ASSAY OF INSULIN CPT-4: 08359 08/27/2012 ROUTINE VENIPUNCTURE CPT-4: 24302 04/29/2012 COMPREHEN METABOLIC PANEL CPT-4: 30050 04/29/2012 A1C GLYCOSYLATED HEM OGLOBIN TEST CPT-4: 94029 04/29/2012 COMPLETE CBC W/AUTO DIFF WBC CPT-4: 24232 12/25/2011 COMPREHEN METABOLIC PANEL CPT-4: 39713 12/25/2011 ROUTINE VENIPUNCTURE CPT-4: 54446 12/25/2011 ASSAY OF INSULIN CPT-4: 20934 12/25/2011 THER/PROPH/DIAG INJ SC/IM CPT-4: 29613 09/17/2011 KETOROLAC TROMETHAMI NE INJ CPT-4: J1885 09/17/2011 ROUTINE VENIPUNCTURE CPT-4: 81454 05/31/2011 COMPREHEN METABOLIC PANEL CPT-4: 60133 05/31/2011 COMPLETE CBC W/AUTO DIFF WBC CPT-4: 21713 05/31/2011 ASSAY OF LIPASE CPT-4: 08322 05/31/2011 ASSAY OF AMYLASE CPT-4: 82708 05/31/2011 URINALYSIS NONAUTO W /O SCOPE CPT-4: 10425 08/01/2010 URINE CULTURE/ COLON Y COUNT CPT-4: 04835 08/01/2010 Vital Signs Date Vital 05/25/2019 Blood Pressure 1: 125/85 Code: 8480-6 Heart Rate 1: 75 bpm Respiratory Rate: 20 bpm Weight: 170 lbs 05/06/2019 Blood Pressure 1: 138/80 Code: 8480-6 Heart Rate 1: 76 bpm Respiratory Rate: 18 bpm SpO2: 99% Temperature: 36.8 (C ) / 98.2 (F) Weight: 173 lbs 12/16/2018 Blood Pressure 1: 130/80 Code: 8480-6 Heart Rate 1: 80 bpm Respiratory Rate: 16 bpm SpO2: 97% Temperature: 36.1 (C ) / 97.0 (F) Weight: 184 lbs 09/09/2018 Blood Pressure 1: 126/86 Code: 8480-6 Heart Rate 1: 88 bpm Respiratory Rate: 20 bpm SpO2: 97% Temperature: 36.7 (C ) / 98.1 (F) 08/28/2018 Blood Pressure 1: 136/86 Code: 8480-6 BMI: 33.5 Code: 59381-2 Heart Rate 1: 92 bpm Height: 5'2" Respiratory Rate: 20 bpm Temperature: 37.1 (C ) / 98.8 (F) Weight: 180 lbs 08/18/2018 Blood Pressure 1: 136/78 Code: 8480-6 Heart Rate 1: 91 bpm Respiratory Rate: 18 bpm SpO2: 99% Temperature: 36.4 (C ) / 97.5 (F) Weight: 183 lbs 06/24/2017 Blood Pressure 1: 140/80 Code: 8480-6 BMI: 34.2 Code: 07357-9 Heart Rate 1: 76 bpm Height: 5'2" Respiratory Rate: 20 bpm Temperature: 36.7 (C ) / 98.0 (F) Weight: 184 lbs 04/11/2017 Blood Pressure 1: 132/86 Code: 8480-6 Heart Rate 1: 84 bpm Respiratory Rate: 20 bpm SpO2: 97% Temperature: 36.6 (C ) / 97.8 (F) Weight: 181 lbs 01/18/2017 Blood Pressure 1: 122/80 Code: 8480-6 BMI: 31.6 Code: 40648-6 Heart Rate 1: 76 bpm Height: 5'2" Respiratory Rate: 20 bpm SpO2: 96% Temperature: 36.7 (C ) / 98.1 (F) Weight: 170 lbs 11/26/2016 Blood Pressure 1: 128/80 Code: 8480-6 BMI: 31.0 Code: 69495-8 Heart Rate 1: 84 bpm Height: 5'2" Respiratory Rate: 20 bpm SpO2: 98% Temperature: 36.8 (C ) / 98.2 (F) Weight: 167 lbs 10/25/2016 Blood Pressure 1: 118/76 Code: 8480-6 BMI: 30.9 Code: 74025-0 Heart Rate 1: 72 bpm Height: 5'2" Weight: 166 lbs 09/21/2016 Blood Pressure 1: 124/70 Code: 8480-6 BMI: 31.0 Code: 61474-5 Heart Rate 1: 80 bpm Height: 5'2" Weight: 167 lbs 08/23/2016 Blood Pressure 1: 138/82 Code: 8480-6 BMI: 31.6 Code: 31620-8 Heart Rate 1: 64 bpm Height: 5'2" Respiratory Rate: 20 bpm SpO2: 97% Temperature: 36.6 (C ) / 97.9 (F) Weight: 170 lbs 06/14/2016 Blood Pressure 1: 118/68 Code: 8480-6 Heart Rate 1: 106 bpm Respiratory Rate: 20 bpm SpO2: 97% Temperature: 36.4 (C ) / 97.6 (F) Weight: 178 lbs 04/19/2016 Blood Pressure 1: 122/68 Code: 8480-6 Heart Rate 1: 82 bpm Height: Respiratory Rate: 18 bpm SpO2: 98% Temperature: 35.7 (C ) / 96.2 (F) Weight: 04/10/2016 Blood Pressure 1: 140/78 Code: 8480-6 BMI: 33.5 Code: 97179-4 Heart Rate 1: 82 bpm Height: 5'2" Respiratory Rate: 22 bpm SpO2: 97% Temperature: 36.3 (C ) / 97.4 (F) Weight: 180 lbs 11/22/2015 Blood Pressure 1: 110/68 Code: 8480-6 BMI: 33.1 Code: 58661-1 Heart Rate 1: 80 bpm Height: 5'2" Respiratory Rate: 20 bpm Temperature: 36.8 (C ) / 98.3 (F) Weight: 178 lbs 06/28/2015 Blood Pressure 1: 124/70 Code: 8480-6 BMI: 31.0 Code: 30156-1 Heart Rate 1: 80 bpm Height: 5'2" Respiratory Rate: 20 bpm Temperature: 36.8 (C ) / 98.3 (F) Weight: 167 lbs 05/02/2015 Blood Pressure 1: 122/76 Code: 8480-6 BMI: 31.4 Code: 45618-4 Heart Rate 1: 78 bpm Height: 5'2" Respiratory Rate: 20 bpm Temperature: 36.3 (C ) / 97.4 (F) Weight: 169 lbs 03/29/2015 Blood Pressure 1: 126/78 Code: 8480-6 BMI: 30.9 Code: 06648-4 Heart Rate 1: 88 bpm Height: 5'2" Respiratory Rate: 20 bpm Temperature: 37.1 (C ) / 98.7 (F) Weight: 166 lbs 02/15/2015 Blood Pressure 1: 12678 Code: 8480-6 BMI: 30.5 Code: 45509-7 Heart Rate 1: 76 bpm Height: 5'2" Respiratory Rate: 20 bpm Temperature: 36.6 (C ) / 97.8 (F) Weight: 164 lbs 12/30/2014 Blood Pressure 1: 118/84 Code: 8480-6 BMI: 30.1 Code: 38608-3 Heart Rate 1: 84 bpm Height: 5'2" Respiratory Rate: 20 bpm Temperature: 37.0 (C ) / 98.6 (F) Weight: 162 lbs 09/30/2014 Blood Pressure 1: 132/68 Code: 8480-6 BMI: 30.1 Code: 92416-6 Heart Rate 1: 84 bpm Height: 5'2" Respiratory Rate: 22 bpm Temperature: 36.5 (C ) / 97.7 (F) Weight: 162 lbs 07/19/2014 Blood Pressure 1: 126/78 Code: 8480-6 BMI: 29.7 Code: 22725-3 Heart Rate 1: 72 bpm Height: 5'2" Respiratory Rate: 20 bpm Temperature: 36.8 (C ) / 98.2 (F) Weight: 160 lbs 06/01/2014 Blood Pressure 1: 132/86 Code: 8480-6 BMI: 29.6 Code: 18068-0 Heart Rate 1: 72 bpm Height: 5'2" Respiratory Rate: 20 bpm Temperature: 36.6 (C ) / 97.8 (F) Weight: 159 lbs 12/25/2013 Blood Pressure 1: 114/82 Code: 8480-6 Heart Rate 1: 80 bpm Respiratory Rate: 14 bpm Temperature: 36.8 (C) / 98.2 (F) 12/17/2013 Blood Pressure 1: 124/82 Code: 8480-6 Heart Rate 1: 80 bpm Respiratory Rate: 20 bpm Temperature: 36.1 (C) / 96.9 (F) Weight: 157 lbs 09/15/2013 Blood Pressure 1: 122/80 Code: 8480-6 BMI: 29.6 Code: 11623-5 Heart Rate 1: 80 bpm Height: 5'2" Respiratory Rate: 20 bpm Temperature: 36.8 (C ) / 98.3 (F) Weight: 159 lbs 08/14/2013 Blood Pressure 1: 138/82 Code: 8480-6 BMI: 27.5 Code: 62237-5 Heart Rate 1: 66 bpm Height: 5'2" Respiratory Rate: 20 bpm Temperature: 36.5 (C ) / 97.7 (F) Weight: 148 lbs 08/03/2013 Blood Pressure 1: 126/82 Code: 8480-6 BMI: 29.1 Code: 31148-6 Heart Rate 1: 72 bpm Height: 5'1" Respiratory Rate: 20 bpm Temperature: 36.6 (C ) / 97.8 (F) Weight: 154 lbs 07/21/2013 Blood Pressure 1: 124/70 Code: 8480-6 BMI: 28.3 Code: 68739-2 Heart Rate 1: 64 bpm Height: 5'1" Respiratory Rate: 22 bpm Temperature: 36.5 (C ) / 97.7 (F) Weight: 150 lbs 06/12/2013 Blood Pressure 1: 124/78 Code: 8480-6 BMI: 28.6 Code: 82620-7 Heart Rate 1: 88 bpm Height: 5'2" Respiratory Rate: 20 bpm Temperature: 36.9 (C ) / 98.4 (F) Weight: 154 lbs 12/25/2012 Blood Pressure 1: 128/84 Code: 8480-6 BMI: 27.0 Code: 25555-7 Heart Rate 1: 76 bpm Height: 5'2" Respiratory Rate: 20 bpm Temperature: 36.9 (C ) / 98.4 (F) Weight: 145 lbs 10/30/2012 Blood Pressure 1: 122/68 Code: 8480-6 BMI: 28.8 Code: 22984-6 Heart Rate 1: 60 bpm Height: 5'2" Temperature: 36.9 (C ) / 98.5 (F) Weight: 155 lbs 08/28/2012 Blood Pressure 1: 112/80 Code: 8480-6 BMI: 29.7 Code: 39453-9 Heart Rate 1: 72 bpm Height: 5'2" Respiratory Rate: 20 bpm Temperature: 36.9 (C ) / 98.5 (F) Weight: 160 lbs 05/27/2012 Blood Pressure 1: 128/80 Code: 8480-6 BMI: 28.4 Code: 42008-0 Heart Rate 1: 72 bpm Height: 5'2" Respiratory Rate: 20 bpm Temperature: 36.8 (C ) / 98.2 (F) Weight: 153 lbs 04/30/2012 Blood Pressure 1: 116/70 Code: 8480-6 BMI: 28.8 Code: 93002-1 Heart Rate 1: 84 bpm Height: 5'2" Respiratory Rate: 20 bpm Temperature: 36.7 (C ) / 98.1 (F) Weight: 155 lbs 02/18/2012 Blood Pressure 1: 118/64 Code: 8480-6 BMI: 28.4 Code: 78047-9 Heart Rate 1: 68 bpm Height: 5'2" Temperature: 36.3 (C ) / 97.4 (F) Weight: 153 lbs 01/08/2012 Blood Pressure 1: 132/80 Code: 8480-6 BMI: 28.8 Code: 24832-3 Heart Rate 1: 76 bpm Height: 5'2" Respiratory Rate: 20 bpm Temperature: 36.7 (C ) / 98.1 (F) Weight: 155 lbs 10/19/2011 Blood Pressure 1: 102/72 Code: 8480-6 BMI: 27.9 Code: 04598-0 Heart Rate 1: 70 bpm Height: 5'2" Temperature: 36.9 (C ) / 98.5 (F) Weight: 150 lbs 09/17/2011 Blood Pressure 1: 126/72 Code: 8480-6 BMI: 28.3 Code: 18726-6 Heart Rate 1: 84 bpm Height: 5'2" Respiratory Rate: 20 bpm Temperature: 36.7 (C ) / 98.1 (F) Weight: 152 lbs 07/05/2011 Blood Pressure 1: 102/68 Code: 8480-6 Heart Rate 1: 88 bpm Temperature: 36.7 (C) / 98.1 (F) Weight: 145 lbs 05/31/2011 Blood Pressure 1: 126/82 Code: 8480-6 BMI: 27.3 Code: 27925-4 Heart Rate 1: 80 bpm Height: 5'2" Respiratory Rate: 20 bpm Temperature: 36.6 (C ) / 97.9 (F) Weight: 147 lbs 04/11/2011 [...] Weight: 130 lbs 01/02/2010 BMI: 25.7 Code: 20483-2 Heart Rate 1: 84 bpm Height: 5'2" Temperature: 36.4 (C ) / 97.5 (F) Weight: 138 lbs Functional Status No Functional Status data History of Present Illness Symptom Name Status Resu lt Effective Date Notes Location on the left 05/25/2019 began a couple days ago and is not relie sarah or exaserbated by any change in position. feels similar to when she had severe pyelonephritis and needed to be hospitalized. Radiating the back 05/25/2019 None Quality acute 05/25/2019 None Quality irregular beats 05/06/2019 None Quality intermittent. 05/06/2019 Patient is having more frequent episodes Quality skipped beats 05/06/2019 None Onset and Resolution i mproved during the day 05/06/2019 tend to happen at night a nd happening every night Onset of Symptom 2 day s ago 12/16/2018 None Location on both sides 12/16/2018 None Onset of Symptom 2 day s ago 12/16/2018 None Onset of Symptom 2 day s ago 12/16/2018 None palpitations Quality myra reness of heartbeat 09/09/2018 None palpitations Quality rap id and regular beats 09/09/2018 None palpitations Quality sta ble 09/09/2018 None arrhythmia Quality acute 09/09/2018 None arrhythmia Quality tachy cardia 09/09/2018 None arrhythmia Quality impro ving 09/09/2018 None hypothyroid Quality acute 09/09/2018 TSH little elevated in ER but rest of la b okay knee pain Location on th e right 08/28/2018 None knee pain Quality sharp pain 08/28/2018 None knee pain Quality giving way 08/28/2018 None knee pain Quality worsen ing 08/28/2018 None knee pain Quality consta nt 08/28/2018 None chest tightness Location in the substernal area 08/18/2018 None chest tightness Quality acute 08/18/2018 None chest tightness Quality sharp 08/18/2018 None chest tightness Quality intermittent 08/18/2018 None chest tightness Onset and Resolution ongoing 08/18/2018 None low back pain Location l umbar spine 10/21/2017 None otalgia Location on the left 06/24/2017 None otalgia Quality throbbing 06/24/2017 None otalgia Quality sharp 06/24/2017 None otalgia Onset of Symptom 3-4 days ago 06/24/2017 None otalgia Quality worsening 06/24/2017 None otalgia Quality acute 06/24/2017 None otalgia Onset and Resolution sudden in onset 06/24/2017 None otalgia Onset and Resolution ongoing 06/24/2017 None cellulitis Quality impro ving. 04/11/2017 Patient has 4 days of Aug mentin cellulitis Quality deep 04/11/2017 None cellulitis Location on t he right arm 04/11/2017 None cough Location in the simi ng 01/18/2017 None cough Quality hacking 01/18/2017 None cough Onset of Symptom 5 days ago 01/18/2017 None dyspnea Quality shortnes s of breath 01/18/2017 None dyspnea Quality chest ti ghtness 01/18/2017 None dyspnea Quality worsening 01/18/2017 None dyspnea Onset and Resolution ongoing. 01/18/2017 Patient was told by urgen t care to take zyrtec weight gain/obesity Location globally 11/26/2016 None weight gain/obesity Quality chronic 11/26/2016 None weight gain/obesity Onset and Resolution ongoing. 11/26/2016 Patient wants to retry phentermine rash Location-Major on t he left arm 11/26/2016 None rash Color pink 11/26/2016 None rash Quality pruritic 11/26/2016 None rash Onset of Symptom 2 days ago 11/26/2016 None weight gain/obesity Location globally 08/23/2016 None weight gain/obesity Quality acute 08/23/2016 None weight gain/obesity Quality worsening 08/23/2016 None weight gain/obesity Onset and Resolution ongoing 08/23/2016 None weight gain/obesity Diet is unchanged 08/23/2016 None weight gain/obesity Significant Fami ly History first degree relatives with similar disease 08/23/2016 None weight gain/obesity Significant Medi allan Conditions acid reflux 08/23/2016 N one knee pain Location on th e left 06/14/2016 None knee pain Location in th e posterior region 06/14/2016 None knee pain Location in th e anterior region 06/14/2016 None knee pain Quality catchi ng 06/14/2016 None knee pain Quality sharp pain 06/14/2016 None knee pain Quality tender ness 06/14/2016 None knee pain Quality throbb ing 06/14/2016 None knee pain Onset and Resolution worse during the day 06/14/2016 None knee pain Onset of Symptom 7 days ago 06/14/2016 None otalgia Location on both sides 04/19/2016 None otalgia Quality acute 04/19/2016 None otalgia Quality pressure 04/19/2016 patien" feels full and ringing" otalgia Onset and Resolution ongoing 04/19/2016 None otalgia Location both si mane 04/10/2016 None otalgia Quality acute 04/10/2016 None otalgia Quality sharp 04/10/2016 None otalgia Onset and Resolution gradual in onset 04/10/2016 None otalgia Onset of Symptom 3 days ago 04/10/2016 None sinus congestion Quality acute 04/10/2016 None sinus congestion Quality fullness 04/10/2016 None sinus congestion Quality pain 04/10/2016 None sinus congestion Quality pressure 04/10/2016 None sinus congestion Location on both sides 04/10/2016 None sinus congestion Onset of Symptom 3 days ago 04/10/2016 None sore throat Location dif fusely 11/22/2015 None sore throat Quality acute 11/22/2015 None sore throat Quality achi ng 11/22/2015 None sore throat Quality thro bbing 11/22/2015 None sore throat Onset of Symptom 2 days ago 11/22/2015 None cough Location in the th roat 11/22/2015 None cough Quality acute 11/22/2015 None cough Quality dry 11/22/2015 None cough Quality hacking 11/22/2015 None cough Onset and Resolution worse at night 11/22/2015 None cough Onset of Symptom 2 days ago 11/22/2015 None flank pain Location diff usely 08/01/2015 None flank pain Radiating the back 08/01/2015 None flank pain Quality acute 08/01/2015 None flank pain Quality squee zing 08/01/2015 None flank pain Quality aching 08/01/2015 None flank pain Onset of Symptom 7 days ago 08/01/2015 None hematochezia Quality blo od-streaked on toilet paper 06/28/2015 None hematochezia Onset of Symptom 2 weeks ago 06/28/2015 Had recent stomach bug wi th diarrhea pain, limb Location on t he right leg 05/02/2015 None pain, limb Quality acute 05/02/2015 None pain, limb Quality cramp ing 05/02/2015 None pain, limb Quality const ant 05/02/2015 None pain, limb Quality numbn ess 05/02/2015 None pain, limb Onset of Symptom 1 weeks ago 05/02/2015 None pain, limb Onset and Resolution gradual in onset 05/02/2015 Patient started new worko ut routine approx 1 month ago, this morning was much worse, feels swollen, was in calf but now extends to thigh. back pain Quality improv ing 03/29/2015 None back pain Location thora cic spine 03/29/2015 None lipoma Location on the r ight foot 03/29/2015 None lipoma Onset and Resolution ongoing 03/29/2015 None lipoma Onset of Symptom 2 weeks ago 03/29/2015 None lipoma Quality soft 03/29/2015 None lipoma Quality tender 03/29/2015 None chills Quality chronic 03/29/2015 None chills Onset and Resolution ongoing 03/29/2015 None fatigue Quality chronic 03/29/2015 None weight gain/obesity Location globally 03/29/2015 None weight gain/obesity Onset and Resolution ongoing 03/29/2015 Discuss new diet medication fatigue Onset and Resolution ongoing 03/29/2015 None otalgia Location on the left 02/15/2015 None otalgia Onset and Resolution sudden in onset today 02/15/2015 None sore throat Onset and Resolution ongoing 02/15/2015 None sore throat Onset of Symptom 4 days ago 02/15/2015 None sore throat Quality dull 02/15/2015 None sore throat Quality scra tchy 02/15/2015 None headache Location diffus negin 02/15/2015 None headache Quality aching 02/15/2015 None headache Onset and Resolution sudden in onset today 02/15/2015 None chest pain/pressure Location in the substernal area 12/30/2014 None chest pain/pressure Quality sharp 12/30/2014 None chest pain/pressure Radiating to both arms 12/30/2014 None gastroesophageal reflux Onset and Re solution ongoing 12/30/2014 None gastroesophageal reflux Quality chronic 12/30/2014 None gastroesophageal reflux Quality constant 12/30/2014 None paresthesia Location med ially 09/30/2014 None paresthesia Quality numb ness 09/30/2014 None paresthesia Quality pins and needles 09/30/2014 None paresthesia Onset and Resolution sudden in onset 09/30/2014 None paresthesia Onset of Symptom 3 days ago 09/30/2014 None wrist pain Location on t he right 09/30/2014 None wrist pain Location in t he radial region 09/30/2014 None wrist pain Quality numbn ess 09/30/2014 None wrist pain Quality sharp pain 09/30/2014 None wrist pain Onset of Symptom 4 days ago 09/30/2014 None gastroesophageal reflux Onset and Re solution ongoing 07/19/2014 None abdominal pain Location in the epigastric area 07/19/2014 None abdominal pain Onset and Resolution ongoing 07/19/2014 None dyskinesia or tremor Location on the left thumb 07/19/2014 None dyskinesia or tremor Quality twitching 07/19/2014 None dyskinesia or tremor Onset and Resolution ongoing 07/19/2014 None dyskinesia or tremor Onset and Resolution sudden in onset 07/19/2014 Started after put on reglan and ranitidine from ER back pain Location lumba r-sacral spine 06/01/2014 None back pain Quality throbb ing 06/01/2014 None back pain Quality pinchi ng 06/01/2014 None back pain Quality radiat es down left leg 06/01/2014 None back pain Onset of Symptom 1 day ago 06/01/2014 None back pain Location in th e left lower back area 06/01/2014 None back pain Quality radiat ing 06/01/2014 to the left leg dysuria Quality burning 12/17/2013 None dysuria Onset of Symptom 2 days ago 12/17/2013 None sore throat Onset and Resolution sudden in onset today 09/15/2013 None cough Quality productive 09/15/2013 None cough Onset of Symptom 3 days ago 09/15/2013 None cough Location in the th roat 08/14/2013 None cough Quality productive 08/14/2013 None cough Quality acute 08/14/2013 None cough Quality constant 08/14/2013 None cough Onset of Symptom 3 days ago 08/14/2013 None sore throat Location dif fusely 08/14/2013 None sore throat Quality achi ng 08/14/2013 None cough Onset and Resolution sudden in onset 08/14/2013 None cough Quality dry 08/14/2013 None cough Quality interrupts sleep 08/14/2013 None palpitations Quality myra reness of heartbeat 08/03/2013 None palpitations Quality irr egular beats/flutters 08/03/2013 Had holter monitor last week palpitations Quality int ermittent 08/03/2013 None palpitations Onset and Resolution ongoing 08/03/2013 None sore throat Location dif fusely 07/21/2013 None sore throat Onset of Symptom 1 day ago 07/21/2013 None sore throat Quality scra tchy 07/21/2013 None otalgia Location on the left 07/21/2013 None otalgia Onset of Symptom 1 day ago 07/21/2013 None ~generic Quality acute 06/12/2013 3 days ago, fishy vaginal odor. No vagi nal discharge. Has had bacterial vaginosis many times before, this is identical to prior episodes. No new sex partners. vaginal discharge Quality acute 06/12/2013 None vaginal discharge Quality foul-smelling 06/12/2013 None vaginal discharge Onset and Resolution ongoing 06/12/[address] able 12/25/2012 None gastroesophageal reflux Quality stable 12/25/2012 None cough Location in the simi ng 10/30/2012 None cough Quality constant 10/30/2012 None cough Quality hacking 10/30/2012 None cough Quality interrupts sleep 10/30/2012 None cough Onset and Resolution sudden in onset 10/30/2012 None cough Onset of Symptom 1 days ago 10/30/2012 None cough Limitation on Activities moderately limits activities 10/30/2012 None sore throat Location on both sides 10/30/2012 None sore throat Quality achi ng 10/30/2012 None sore throat Quality cons tant 10/30/2012 None sore throat Quality scra tchy 10/30/2012 None sore throat Onset and Resolution sudden in onset 10/30/2012 None sore throat Onset of Symptom 2 days ago 10/30/2012 None sore throat Limitation on Activities does not limit oral intake 10/30/2012 None hyperglycemia Quality hy perinsulinemia 08/28/2012 None gastroesophageal reflux Quality stable 08/28/2012 None menstrual irregularity Quality worsening 08/28/2012 None menstrual irregularity Quality menometrorrhagia 08/28/2012 having hysterectomy on 09/08/12 chest pain/pressure Location in the epigastric area 05/27/2012 None dyspepsia Quality heartb urn/esophogeal spasms 05/27/2012 None chest pain/pressure Onset and Resolution resolved 05/27/2012 None hyperglycemia Quality gl ucose intolerance 04/30/[address] able 04/30/2012 None dyspepsia Quality worsen ing 04/30/2012 since been on Metformin weight gain/obesity Quality stable 04/30/2012 None eye erythema Location in the right conjunctiva 02/18/2012 None eye erythema Quality con stant 02/18/2012 None eye erythema Onset and Resolution sudden in onset 02/18/2012 None eye erythema Onset of Symptom 1 weeks ago 02/18/2012 None eye erythema Severity mo derate 02/18/2012 None eye discharge Location i n the right eye 02/18/2012 None eye discharge Quality co nstant 02/18/2012 None eye discharge Onset and Resolution sudden in onset 02/18/2012 None eye discharge Onset of Symptom 1 weeks ago 02/18/2012 None eye discharge Severity m oderate 02/18/2012 None follow up Reason Hyperin sulinemia 01/08/2012 None hypoglycemia Quality int ermittent 01/08/2012 None sore throat Location on both sides 10/19/2011 None sore throat Quality acute 10/19/2011 None sore throat Quality cons tant 10/19/2011 None sore throat Quality scra tchy 10/19/2011 None sore throat Quality thro bbing 10/19/2011 None sore throat Onset and Resolution sudden in onset 10/19/2011 None sore throat Onset of Symptom 2 days ago 10/19/2011 None sore throat Limitation on Activities limits oral intake 10/19/2011 None sore throat Frequency of Episodes increasing 10/19/2011 None follow up Reason pyleone phritis 09/17/2011 None follow up Illness sympto ms improved 09/17/2011 None dysuria Onset and Resolution resolved 09/17/2011 None back pain Onset and Resolution ongoing 09/17/2011 seen in ER yesterday and had CT scan done and no stone sore throat Onset of Symptom 2 days ago 07/05/2011 None sore throat Quality burn ing 07/05/2011 None abdominal pain Radiating the back 05/31/2011 None abdominal pain Quality w orse with deep breathing/eating 05/31/2011 None abdominal pain Location in the [facility] 05/31/2011 None gastroesophageal reflux Onset and Re solution ongoing 05/31/2011 None gastroesophageal reflux Quality heartburn 04/11/2011 None gastroesophageal reflux Quality worsening 04/11/2011 using lots of Maalox gastroesophageal reflux Onset and Re solution ongoing 04/11/2011 None acne vulgaris Location d iffusely 04/11/2011 None sinus congestion Location on both sides 03/13/2011 None sinus congestion Quality fullness 03/13/2011 None sinus congestion Onset of Symptom 3 days ago 03/13/2011 None shortness of breath Onset of Symptom 3 days ago 03/13/2011 None shortness of breath Quality breathlessness 03/13/2011 None cough Location in the simi ng 03/13/2011 None cough Quality dry 03/13/2011 None cough Quality hacking 03/13/2011 None cough Onset of Symptom 3 days ago 03/13/2011 None sore throat Location dif fusely 03/13/2011 None sore throat Quality scra tchy 03/13/2011 None sore throat Onset of Symptom 1 days ago 03/13/2011 None ankle pain Location on t he right 11/30/2010 improving--now wearing br marta ankle pain Location on t he right 11/02/2010 None ankle sprain Location on the right 11/02/[address] and twis dominic ankle on 10/27/10--seen in ER and had x-ray sinus congestion Location on both sides 07/25/2010 None sinus congestion Quality pressure 07/25/2010 None sinus congestion Quality fullness 07/25/2010 None sinus congestion Onset of Symptom 4 days ago 07/25/2010 None cough Onset of Symptom 2 days ago 07/25/2010 None cough Location in the la rynx 07/25/2010 None cough Quality hacking, p t has been on the verge of vomiting during coughing fits 07/25/2010 None cough Quality acute 07/25/2010 None cough Quality interrupts sleep 07/25/2010 None cough Quality productive 07/25/2010 None postnasal drip Onset of Symptom 6 days ago 01/02/2010 None sinus congestion Onset of Symptom 6 days ago 01/02/2010 None cough Onset of Symptom 3 days ago 01/02/2010 None chest congestion Onset of Symptom 3 days ago 01/02/2010 None cough Quality productive 01/02/2010 yellow/green Advance Directives No Advance Directive data Encounters Encounter Performer Loca tion Codes Date ([id number]) OFFICE/OUTPA TIENT VISIT EST Diagnosis: Low back pain[ICD10: M54.5] Diagnosis: Personal history of urinary (tract) infections[ICD10: Z87.440] Nikoledora ENRIQUEZ [facility] CPT-4: 64921 05/25/2019 ([id number]) OFFICE/OUTPA TIENT VISIT EST Diagnosis: Palpitations[ICD10: R00.2] Almaz ENRIQUEZ [facility] CPT-4: 78122 05/06/2019 OFFICE/OUTPATIENT SIT EST Diagnosis: Other infective otitis externa, right ear[ICD10: H60.391] Diagnosis: Acute serous otitis media, recurrent, right ear[ICD10: H65.04] Elisha ENRIQUEZ [facility] CPT-4: 99421 12/16/2018 ([id number]) NURSE/OUTPAT IENT VISIT EST Diagnosis: Dysuria[ICD10: R30.0] Almaz ENRIQUEZ DO [facility] CPT-4: 82729 12/02/2018 ([id number]) OFFICE/OUTPA TIENT VISIT EST Diagnosis: Palpitations[ICD10: R00.2] Diagnosis: Abnormal results of thyroid function studies[ICD10: R94.6] Almaz ENRIQUEZ DO [employer] CPT-4: 92293 09/09/2018 ([id number]) OFFICE/OUTPA TIENT VISIT EST Diagnosis: Pain in right knee[ICD10: M25.561] Almaz OWEN [facility] CPT-4: 96700 08/28/2018 ([id number]) OFFICE/OUTPA TIENT VISIT EST Diagnosis: Gastro-esophageal reflux disease without esophagitis[ICD10: K21.9] Almaz ENRIQUEZ DO [employer] CPT-4: 90563 08/18/2018 ([id number]) OFFICE/OUTPA TIENT VISIT EST Diagnosis: Other polyuria[ICD10: R35.8] Almaz ENRIQUEZ DO [facility] CPT-4: 97567 10/21/2017 ([id number]) OFFICE/OUTPA TIENT VISIT EST Diagnosis: Otalgia, left ear[ICD10: H92.02] Diagnosis: Left temporomandibular joint disorder, unspecified[ICD10: M26.602] Almaz ENRIQUEZ DO [facility] [employer] CPT-4: 81481 06/24/2017 OFFICE/OUTPATIENT SIT EST Diagnosis: Insect bite (nonvenomous) of right upper arm, sequela[ICD10: S40.861S] Almaz ENRIQUEZ DO [facility] CPT-4: 38413 04/11/2017 ([id number]) OFFICE/OUTPA TIENT VISIT EST Diagnosis: Other seasonal allergic rhinitis[ICD10: J30.2] Aracelis Mercado ALMAZ ENRIQUEZ [facility] CPT-4: 46073 01/18/2017 ([id number]) OFFICE/OUTPA TIENT VISIT EST Diagnosis: Abnormal weight gain[ICD10: R63.5] Diagnosis: Tinea corporis[ICD10: B35.4] Almaz Zoe ALMAZ BlancheKaz ZOE JONES [facility] CPT-4: 08042 11/26/2016 ([id number]) OFFICE/OUTPA TIENT VISIT EST Diagnosis: Abnormal weight gain[ICD10: R63.5] Almaz Zoe CALDERAQUELINE BlancheKaz ROHITH OWEN [facility] CPT-4: 63092 08/23/2016 ([id number]) OFFICE/OUTPA TIENT VISIT EST Diagnosis: Pain in left knee[ICD10: M25.562] Aracelis Mercado ALMAZ Price BRITNIGLADYS [facility] CPT-4: 80211 06/14/2016 OFFICE/OUTPATIENT SIT EST Diagnosis: Other specified disorders of Eustachian tube, left ear[ICD10: H69.82] Radha TalleySurekha WU BlancheKaz BRITNIGLADYS JON[facility] CPT-4: 85665 04/19/2016 ([id number]) OFFICE/OUTPA TIENT VISIT EST Diagnosis: Other specified disorders of Eustachian tube, bilateral[ICD10: H69.83] Diagnosis: Otitis media, unspecified, right ear[ICD10: H66.91] Aracelis Mercado ALMAZ BlancheKaz ZOE [facility] CPT-4: 27298 04/10/2016 OFFICE/OUTPATIENT SIT EST Diagnosis: Acute pharyngitis, unspecified[ICD10: J02.9] Radha TalleyCarolinerandyoctavio ARROYO DO [facility] CPT-4: 43175 11/22/2015 ([id number]) OFFICE/OUTPA TIENT VISIT EST Diagnosis: Encounter for general adult medical examination without abnormal findings[ICD10: Z00.00] Almaz Orendgladys ALMAZ BlancheKaz [facility]OE [facility] CPT-4: 00875 10/03/2015 ([id number]) OFFICE/OUTPA TIENT VISIT EST Diagnosis: Myalgia[ICD10: M79.1] Diagnosis: Unspecified abdominal pain[ICD10: R10.9] Almaz WU BlancheKaz ROHITH OWEN [facility] CPT-4: 65149 08/01/2015 ([id number]) OFFICE/OUTPA TIENT VISIT EST Diagnosis: Proctalgia[ICD9: 569.42] Diagnosis: Rectal bleeding[ICD9: 569.3] Almaz ENRIQUEZ DO [facility] CPT-4: 37919 06/28/2015 ([id number]) OFFICE/OUTPA TIENT VISIT EST Diagnosis: Right calf pain[ICD9: 729.5] Za PoeFaustoKenyon ENRIQUEZ [facility] CPT-4: 16853 05/02/2015 ([id number]) OFFICE/OUTPA TIENT VISIT EST Diagnosis: Flank pain[ICD9: 789.00] Diagnosis: MALAISE AND FATIGUE[ICD9: 780.79] Diagnosis: ABNORMAL WEIGHT GAIN[ICD9: 783.1] Almaz OWEN [facility] CPT-4: 47248 03/29/2015 ([id number]) OFFICE/OUTPA TIENT VISIT EST Diagnosis: ALLERGIC RHINITIS[ICD9: 477.9] Almaz ManciaKaz ZOE [facility]ON[facility] CPT-4: 51891 02/15/2015 ([id number]) OFFICE/OUTPA TIENT VISIT EST Diagnosis: GERD[ICD9: 530.81] Almaz ENRIQUEZ DO [facility] CPT-4: 27878 12/30/2014 ([id number]) OFFICE/OUTPA TIENT VISIT EST Diagnosis: Tenosynovitis, de Quervain[ICD9: 727.04] Diagnosis: Paresthesia of hand[ICD9: 782.0] Almaz ManciaKaz ZOE [facility] CPT-4: 63669 09/30/2014 ([id number]) OFFICE/OUTPA TIENT VISIT EST Diagnosis: ABDOMINAL PAIN[ICD9: 789.00] Diagnosis: GERD[ICD9: 530.81] Diagnosis: TREMOR NEC[ICD9: 333.1] Almaz ManciaKaz ZOE [facility] CPT-4: 56290 07/19/2014 ([id number]) OFFICE/OUTPA TIENT VISIT EST Diagnosis: PAIN, LOWER BACK[ICD9: 724.2] Diagnosis: SPASM OF MUSCLE[ICD9: 728.85] Almaz Zoe Price BRITNIGLADYS [facility] CPT-4: 39852 06/01/2014 OFFICE/OUTPATIENT SIT EST Diagnosis: TONSILLITIS, ACUTE[ICD9: 463] Diagnosis: STREPTOCOCCAL INFECTION GROUP A[ICD9: 041.01] Radha TalleyCarolinerandyoctavio WU BlancheKaz O RENDER [facility] CPT-4: 03386 12/25/2013 OFFICE/OUTPATIENT SIT EST Diagnosis: DYSURIA[ICD9: 788.1] Radha TalleyCarolinerandyoctavio Price ROHITHBRITTANYGLADYS [facility] CPT-4: 29434 12/17/2013 ([id number]) OFFICE/OUTPA TIENT VISIT EST Diagnosis: BRONCHITIS, ACUTE[ICD9: 466.0] Almaz Price ROHITHBRAYDEN [facility] CPT-4: 45693 09/15/2013 OFFICE/OUTPATIENT SIT EST Diagnosis: URI, ACUTE[ICD9: 465.9] [facility]: 23041 08/14/2013 ([id number]) OFFICE/OUTPA TIENT VISIT EST Diagnosis: PALPITATIONS[ICD9: 785.1] [facility]maz [facility] CPT-[facility]: 32147 08/03/2013 OFFICE/OUTPATIENT SIT EST Diagnosis: SINUSITIS, ACUTE[ICD9: 461.9] Diagnosis: Dysfunction of left Eustachian tube[ICD9: 381.81] Radha TalleySurekha WU S. Son [facility] CPT-4: 76261 07/21/2013 OFFICE/OUTPATIENT SIT EST Diagnosis: Vaginal disorder[ICD9: 623.9] Za [facility] CPT-[facility]: 14227 06/12/2013 OFFICE/OUTPATIENT SIT EST Diagnosis: HYPOGLYCEMIA NEC[ICD9: 251.1] Diagnosis: GERD[ICD9: 530.81] Almaz Price ROHITHBRITTANYGLADYS [facility] CPT-4: 67266 12/25/2012 OFFICE/OUTPATIENT SIT EST Diagnosis: COUGH[ICD9: 786.2] Diagnosis: PHARYNGITIS, ACUTE[ICD9: 462] [facility]maz [facility] CPT-[facility]: 61806 10/30/2012 OFFICE/OUTPATIENT SIT EST Diagnosis: HYPOGLYCEMIA[ICD9: 251.2] Diagnosis: GERD[ICD9: 530.81] Diagnosis: Fibroid tumor[ICD9: 218.9] Almaz ENRIQUEZ [facility] CPT-4: 48940 08/28/2012 ([id number]) OFFICE/OUTPA TIENT VISIT EST Diagnosis: Hyperglycemia[ICD9: 790.29] Almaz ENRIQUEZ [facility] CPT-4: 27608 08/27/2012 ([id number]) OFFICE/OUTPA TIENT VISIT EST Diagnosis: GERD[ICD9: 530.81] Almaz ENRIQUEZ [facility] CPT-4: 70825 05/27/2012 ([id number]) OFFICE/OUTPA TIENT VISIT EST Diagnosis: HYPOGLYCEMIA NEC[ICD9: 251.1] Diagnosis: GERD[ICD9: 530.81] Almaz ENRIQUEZ [facility] CPT-4: 96956 04/30/2012 ([id number]) OFFICE/OUTPA TIENT VISIT EST Diagnosis: HYPOGLYCEMIA[ICD9: 251.2] Almaz ENRIQUEZ [facility] CPT-4: 99352 04/29/2012 OFFICE/OUTPATIENT SIT EST Diagnosis: CONJUNCTIVITIS NOS[ICD9: 372.30] Almaz ENRIQUEZ [facility] CPT-4: 15393 02/18/2012 OFFICE/OUTPATIENT SIT EST Diagnosis: Hyperinsulinemia[ICD9: 251.1] Diagnosis: HYPOGLYCEMIA[ICD9: 251.2] Almaz ENRIQUEZ [facility] CPT-4: 92757 01/08/2012 ([id number]) OFFICE/OUTPA TIENT VISIT EST Diagnosis: Leg cramps[ICD9: 729.82] Almaz ENRIQUEZ [facility] CPT-4: 54138 12/25/2011 OFFICE/OUTPATIENT SIT EST Diagnosis: PHARYNGITIS, ACUTE[ICD9: 462] Almaz Britnigladys ALMAZ Dee ENRIQUEZ [facility] CPT-4: 62040 10/19/2011 OFFICE/OUTPATIENT SIT EST Diagnosis: Pyelonephritis[ICD9: 590.80] Diagnosis: Flank pain[ICD9: 789.00] Diagnosis: Recurrent UTI[ICD9: 599.0] Diagnosis: Thoracic back pain[ICD9: 724.1] Almaz ENRIQUEZ DO [facility] CPT-4: 88162 09/17/2011 OFFICE/OUTPATIENT SIT EST Diagnosis: PHARYNGITIS, ACUTE[ICD9: 462] Almaz NEWBERRYNDER DO [facility] CPT-4: 85603 07/05/2011 OFFICE/OUTPATIENT SIT EST Diagnosis: GERD[ICD9: 530.81] Diagnosis: ABDOMINAL PAIN[ICD9: 789.00] Almaz ENRIQUEZ DO [facility] CPT-4: 65654 05/31/2011 OFFICE/OUTPATIENT SIT EST Almaz NEWBERRY NDER DO [facility] CPT-4: 04946 04/11/2011 ([id number]) OFFICE/OUTPA TIENT VISIT EST Almaz NEWBERRY NDER DO [facility] [employer] CPT-4: 63005 03/13/2011 ([id number]) OFFICE/OUTPA TIENT VISIT EST Almaz NEWBERRY NDER DO [facility] CPT-4: 18141 11/30/2010 ([id number]) OFFICE/OUTPA TIENT VISIT, EST Almaz NEWBERRY NDER DO [employer] CPT-4: 72830 11/02/2010 ([id number]) OFFICE/OUTPA TIENT VISIT, EST Lucy Willson ALMAZ NEWBERRYNDER DO [employer] CPT-4: 95615 07/25/2010 ([id number]) OFFICE/OUTPA TIENT VISIT, EST Almaz NEWBERRY NDER DO [facility] CPT-4: 99149 01/02/2010 Plan of Care Planned Activity Notes C odes Status Date Visit Diagnosis Plan: Low back pain Discussion: urine dip neg. will send for culture. bactrim bid for 7 days to cover for infection due to patient's hx. instructed to push water. call office if no improvement tomorrow or to ED with worsening. ICD-9 : 724.2 ICD-10 : M54.5 05/25/2019 Appointment: Nikole Gabriel [address] ACUTE ILLNESS 05/25/2019 Visit Diagnosis Plan: Palpitations D iscussion: Check CBC, iron, ferritin, TSH, Free T4, CMP Check 24hr holter Denies any energy drinks, supplements, etc. To ER if come on and persist with any associated dyspnea, dizziness, CP, etc. ICD-9 : 785.1 ICD-10 : R00.2 05/06/2019 Appointment: Almaz Enriquez WPtel: [facility] [address] ACUTE ILLNESS 05/06/2019 Visit Diagnosis Plan: Other infective ot itis externa, right ear Discussion: Keep ear free from water in shower. May put cotton ball in right ear canal during shower. Ofloxacin ear drops- 5 drops to right ear twice daily for 7 days. ICD-9 : 380.16 ICD-10 : H60.391 12/16/2018 Visit Diagnosis Plan: Acute serous otiti s media, recurrent, right ear Discussion: Amoxicillin 875 BID x 10. Ad vised to take with food. Warm compress to ear ok. Tylenol or Motrin for pain. ICD-9 : 381.01 ICD-10 : H65.04 12/16/2018 Appointment: Elisha Leiva [address] ACUTE ILLNESS 12/16/2018 Patient Education: amoxicillin- [employer] Coupon [id number] [email or web address]/samplemd/resources/getResource/[email or web address] Completed 12/16/2018 Appointment: Almaz Enriquez WPtel: [address] 12/02/2018 Visit Diagnosis Plan: Palpitations D iscussion: Discussed likely from phenteramine and reminded her that she had tried phenteramine several years ago and had same type of reaction so recommend avoid stimulants and herbal supplements for weight loss ICD-9 : 785.1 ICD-10 : R00.2 09/09/2018 Visit Diagnosis Plan: Abnormal results o f thyroid function studies Discussion: Will recheck TSH and free T4 in 2 weeks and see if back to normal ICD-9 : 246.9 ICD-10 : R94.6 09/09/2018 Appointment: Almaz Enriquez WPtel: [address] [place] [address] Hospital Follow Up 09/09/2018 Visit Diagnosis Plan: Pain in right knee Discussion: Referral to Dr. Pako Lowry and topical voltaren ICD-9 : 719.46 ICD-10 : M25.561 08/28/2018 Appointment: Almaz Enriquez WPtel: [address] [place] [address] ACUTE ILLNESS 08/28/2018 Care Plan: Referral Order SNOMED-CT : [id number] Pending 08/28/2018 Visit Diagnosis Plan: Gastro-esophageal reflux disease without esophagitis Discussion: Left lower chest pain appear s to be from GI etiology so will resume protonix 40mg po BID for next week and see if resolves, if improved then can go to protonix 40mg po daily ICD-9 : 530.81 ICD-10 : K21.9 08/18/2018 Appointment: Nikole Gabriel [address] [place] [address] ACUTE ILLNESS 08/18/2018 Patient Education: Patient Medication Summary Completed 05/13/2018 Care Plan: [employer] : 24186-5 Pending 05/13/2018 Appointment: Almaz Enriquez WPtel: [address] [place] [address] 10/21/2017 Patient Education: Patient Medication Summary Completed 10/21/2017 Visit Plan: Supportive care. Rest, Fluids, Tylenol/Motrin prn fever or bodyaches. Notify if worsening symptoms. 06/24/2017 Visit Diagnosis Plan: Left temporomandib ular joint disorder, unspecified Discussion: Topical aspercreme with marcello donovan and see chiropracter ICD-9 : 524.60 ICD-10 : M26.602 06/24/2017 Visit NOS Plan: Plan Notes: Support adriana care. Rest, Fluids... 06/24/2017 Visit Diagnosis Plan: Otalgia, left ear Discussion: Oflaxacin otic drops for 1 week ICD-9 : 388.70 ICD-10 : H92.02 06/24/2017 Appointment: Almaz Enriquez WPtel: [address] [place] [address] ACUTE ILLNESS 06/24/2017 Patient Education: Patient Medication Summary Completed 06/24/2017 Patient Education: Patient Medication Summary Completed 05/14/2017 Visit Diagnosis Plan: Insect bite (nonve nomous) of right upper arm, sequela Discussion: Finish all abx Add Zyrtec 10 mg daily for 10 days ICD-9 : 906.2 ICD-10 : S40.861S 04/11/2017 Appointment: Almaz Enriquez WPtel: [address] [place], [place] [id number] ER Follow UP 04/11/2017 Patient Education: Patient Medication Summary Completed 04/11/2017 Visit Diagnosis Plan: Other seasonal allergic rhinitis Discussion: Add benadryl at bedtime Nasal rinses, steroid nasal spray Vicks and humidifier Monitor for signs of infection Follow up PRN ICD-9 : 477.9 ICD-10 : J30.2 01/18/2017 Appointment: Aracelis Mercado [address] [place] [address] ACUTE ILLNESS 01/18/2017 Patient Education: Patient Medication Summary Completed 01/18/2017 Visit Diagnosis Plan: Abnormal weight gain Discussion: Long discussion about diet/exercise/lifestyle change--3month trial ICD-9 : 783.1 ICD-10 : R63.5 11/26/2016 Visit Diagnosis Plan: Tinea corporis Discussion: Ketoconazole BID for 2 weeks Notify if persist or worsens ICD-9 : 110.5 ICD-10 : B35.4 11/26/2016 Appointment: Almaz Enriquez WPtel: [address] [place], [place] [phone] 11/22 confirm~sl FOLLOW UP 11/26/2016 Patient Education: Patient Medication Summary Completed 11/26/2016 Appointment: Almaz Enriquez WPtel: [address] [place] [address] WT CHECK 10/25/2016 Patient Education: Patient Medication Summary Completed 10/25/2016 Appointment: Almaz Enriquez WPtel: [address] [place] [address] BP CHECK 09/21/2016 Patient Education: Patient Medication Summary Completed 09/21/2016 Visit Plan: Is working out routinel y Will do phenteramine 37.5mg Weight and BP check next 2 months then fwup in 3mos 08/23/2016 Appointment: Almaz Enriquez WPtel: [address] [place] [address] 08/22 confirmed~sl FOLLOW UP 08/23/2016 Patient Education: Patient Medication Summary Completed 08/23/2016 Patient Education: Patient Medication Summary Completed 06/22/2016 Care Plan: X-RAY EXAM OF KNEE 1 OR 2 LOINC : 84899-2 Pending 06/22/2016 Visit Plan: RICE and rx as above Re duce strain on knee OTC pain relievers if needed Knee sleeve Call in 7-10 days if not improving for xray orders 06/14/2016 Visit Plan: RICE and rx as above Re duce strain on knee OTC pain relievers if needed Knee sleeve Call in 7-10 days if not improving for xray orders 06/14/2016 Appointment: Aracelis Mercado [address] ACUTE ILLNESS 06/14/2016 Patient Education: Patient Medication Summary Completed 06/14/2016 Referral: Jatinder Ambrose WPtel: [address] [place] [address] Referral Appointment Requested 05/09/2016 Visit Plan: Attempted to use ET pop per with minimal relief Fluticasone nasal spray - 2 sprays each nostril one time daily 04/19/2016 Visit Plan: Attempted to use ET pop per with minimal relief Fluticasone nasal spray - 2 sprays each nostril one time daily 04/19/2016 Appointment: Radha Botello WPtel: [address] [place], [place] [phone] 7/6 confirmed~sl ACUTE ILLNESS 04/19/2016 Patient Education: Patient Medication Summary Completed 04/19/2016 Visit Plan: Amoxicillin dosing is t oo low - increase as above Infection does appear fairly mild so suspect most of her pain is from ETD/fluid issues MDP as well as antihistamines - avoid decongestant due to history of palpitations Diflucan if needed since she reports yeast infections with antibiotic use Follow up PRN 04/10/2016 Visit Plan: Amoxicillin dosing is t oo low - increase as above Infection does appear fairly mild so suspect most of her pain is from ETD/fluid issues MDP as well as antihistamines - avoid decongestant due to history of palpitations Diflucan if needed since she reports yeast infections with antibiotic use Follow up PRN 04/10/2016 Visit Plan: Amoxicillin dosing is t oo low - increase as above Infection does appear fairly mild so suspect most of her pain is from ETD/fluid issues MDP as well as antihistamines - avoid decongestant due to history of palpitations Diflucan if needed since she reports yeast infections with antibiotic use Follow up PRN 04/10/2016 Appointment: Aracelis Mercado [address] [place] [address] ACUTE ILLNESS 04/10/2016 Patient Education: Patient Medication Summary Completed 04/10/2016 Visit Plan: Strep Screen - negative Recommending warm saline gargles and notify if symptoms worsen 11/22/2015 Visit Plan: Strep Screen - negative Recommending warm saline gargles and notify if symptoms worsen 11/22/2015 Visit Plan: Strep Screen - negative Recommending warm saline gargles and notify if symptoms worsen 11/22/2015 Appointment: Radha Botello WPtel: [address] [place], [place] [phone] ACUTE ILLNESS 11/22/2015 Patient Education: Patient Medication Summary Completed 11/22/2015 Appointment: Almaz Enriquez WPtel: [address] [place], [place] [phone] LAB 10/03/2015 Patient Education: Patient Medication Summary Completed 10/03/2015 Appointment: Almaz Enriquez WPtel: [address] [place] [address] 08/01/2015 Patient Education: Patient Medication Summary Completed 08/01/2015 Visit Plan: Anusol HC supp for 2wee ks Align daily for 2weeks If resolves then will observe as came on after recent GI bug but if persists or comes back will need colonoscopy 06/28/2015 Appointment: Almaz Enriquez WPtel: [address] [place] [address] ACUTE ILLNESS 06/28/2015 Patient Education: Patient Medication Summary Completed 06/28/2015 Appointment: Almaz Enriquez WPtel: [address] [place] [address] 05/27 cn FOLLOW UP 05/30/2015 Appointment: Almaz Enriquez WPtel: [address] [place] [address] ACUTE ILLNESS 05/16/2015 Visit Plan: Venous dopple of right leg ordered (tomorrow 10am) Recommended daily EC ASA until results 05/02/2015 Visit Plan: Venous dopple of right leg ordered (tomorrow 10am) Recommended daily EC ASA until results 05/02/2015 Appointment: Za Barajas WPtel: [address] [place] [address] ACUTE ILLNESS 05/02/2015 Patient Education: Patient Medication Summary Completed 05/02/2015 Visit Plan: Contrave starter pack F wup in 2mos 03/29/2015 Appointment: Almaz Enriquez WPtel: [address] [place] [address] ER Follow UP 03/29/2015 Patient Education: Patient Medication Summary Completed 03/29/2015 Visit Plan: Start Loratadine 10mg p o BID Add flonase q HS 02/15/2015 Appointment: Almaz Enriquez WPtel: [address] [place], [place] [id number] ACUTE ILLNESS 02/15/2015 Patient Education: Patient Medication Summary Completed 02/15/2015 Visit Plan: Continue protonix and c arafate See GI for update EGD vs pH probe/etc. Discussed musculoskeletal etiology as well as patient does have some chest wall pain and thoracic pain 12/30/2014 Appointment: Almaz Enriquez WPtel: [address] [place], [place] [phone] ER Follow UP 12/30/2014 Patient Education: Patient Medication Summary Completed 12/30/2014 Referral: Garo Reddy WPtel: [address] [place], [place] [id number] EMG - Dr Reddy office verifies ins they s chedule with patient directly 10/20/14 Per Patient - she cannot go to this consult because due to her work comp case she must see their preferred dr. Completed 10/12/2014 Visit Plan: Continue wrist splint C heck EMG of RUE Start Vimovo once daily 09/30/2014 Appointment: Almaz Enriquez WPtel: [address] [place], [place] [phone] ER Follow UP 09/30/2014 Patient Education: Patient Medication Summary Completed 09/30/2014 Visit Plan: List reglan as an aller gy--tremor of thumb has improved since stopping Add carafate to protonix for next 2-4weeks If resolves will observe, if not will need updated EGD 07/19/2014 Appointment: Almaz Enriquez WPtel: [address] [place], [place] [id number] 07/16 also left message that payment is due ER Follow UP 4 Patient Education: Patient Medication Summary Completed 07/19/2014 Visit Plan: Stretches, moist heat, topical biofreeze Amrix 15mg q PM Celebrex 200mg po BID 06/01/2014 Appointment: Almaz Enriquez WPtel: [address] [place], [place] [phone] Patient will bring in/call in $50.00 pay ment on 06/08-LB ACUTE ILLNESS 06/01/20 Patient Education: Patient Medication Summary Completed 06/01/2014 Visit Plan: Complete antibiotics Ch jacqueline toothbrush 1/2 way through coarse of antibiotics 12/25/2013 Appointment: Radha Botello WPtel: [address] [place], [place] [phone] US was in ER on 12/19/13 ACUTE ILLNESS 12/25/2013 Patient Education: Patient Medication Summary Completed 12/25/2013 Visit Plan: Follow up if symptoms w dre Call if begins to have symptoms of vaginal yeast and will call out bebeto Recommended topical hydrocortisone cream for symptoms 12/17/2013 Appointment: Radha Botello WPtel: [address] [place] [phone] ACUTE ILLNESS 12/17/2013 Patient Education: Patient Medication Summary Completed 12/17/2013 Visit Plan: Supportive care. Rest, Fluids, Tylenol/Motrin prn fever or bodyaches. Notify if worsening symptoms. Zitthromax 500mg daily for 1wk Tussionex 09/15/2013 Appointment: Almaz Enriquez WPtel: [address] [place], [place] [id number] ACUTE ILLNESS 09/15/2013 Patient Education: Patient Medication Summary Completed 09/15/2013 Visit Plan: Samples Claritin 10mg 1 po daily #8, Nasonex 2 sprays each nostril daily (1 sample) Nasal saline Tylenol/Ibuprofen Rest/fluids Off work today. 08/14/2013 Appointment: Za Barajas WPtel: [address] [place], [place] [id number] ACUTE ILLNESS 08/14/2013 Patient Education: Patient Medication Summary Completed 08/14/2013 Visit Plan: Await holter results Av oid decongestants, caffeine Discussed likely secondary to recent illness, steroids, decongestants If persists will get ECHO 08/03/2013 Appointment: Almaz Enriquez WPtel: [address] [place], [place] [phone] ER Follow UP 08/03/2013 Patient Education: Patient Medication Summary Completed 08/03/2013 Visit Plan: Kenalog 40 mg andfDepo Medrol 40 mg Im now. Mucinex D daily. Nasonex nasal spray- 2 sprays eash nostril daily. 07/21/2013 Appointment: Radha Botello WPtel: [address] [place], [place] [phone] ACUTE ILLNESS 07/21/2013 Patient Education: Patient Medication Summary Completed 07/21/2013 Visit Plan: Flagyl 500mg 1 po bid x 7 days (with ETOH warning) Discussed d/c is much more yeast appearing, T&M obtained. Discussed that since cervix is still present (supracervical hyst) she will need routine P ap smears. Call if no improvement by next week. 06/12/2013 Appointment: Za Barajas WPtel: [address] [place], [place] [id number] ACUTE ILLNESS 06/12/2013 Patient Education: Patient Medication Summary Completed 06/12/2013 Visit Plan: Continue carafate once daily Check Chem 7, Insulin level today 12/25/2012 Appointment: Almaz Enriquez WPtel: [address] [place], [place] [phone] FOLLOW UP 12/25/2012 Patient Education: Patient Medication Summary Completed 12/25/2012 Visit Plan: Azithromycin and codein e/guiaf cough syrup. 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 Discussed notifying if symptoms worsen or persist. Fluids and comfort care. 10/30/2012 Appointment: Lucy Willson WPtel: [address] [place], [place] [phone] ACUTE ILLNESS 10/30/2012 Patient Education: Patient Medication Summary Completed 10/30/2012 Visit Plan: Continue metformin and all other meds Pt going for surgery for hysterectomy 08/28/2012 Appointment: Almaz Enriquez WPtel: [address] [place], [place] [phone] FOLLOW UP 08/28/2012 Patient Education: Patient Medication Summary Completed 08/28/2012 Appointment: Almaz Enriquez WPtel: [address] [place] [address] LAB 08/27/2012 Patient Education: Patient Medication Summary Completed 08/27/2012 Visit Plan: Continue carafate and p rotonix Proceed with EGD 05/27/2012 Appointment: Almaz Enriquez WPtel: [address] [place] [address] Follow Up 05/27/2012 Patient Education: Patient Medication Summary Completed 05/27/2012 Visit Plan: Continue metformin and accuchecks Restart Dexilant Check insulin level with CMP in 4mos 04/30/2012 Appointment: Almaz Enriquez WPtel: [address] [place] [address] FOLLOW UP 04/30/2012 Patient Education: Patient Medication Summary Completed 04/30/2012 Appointment: Almaz Enriquez WPtel: [address] [place], [place] [phone] 04/29/2012 Patient Education: Patient Medication Summary Completed 04/29/2012 Visit Plan: Pt. reports both of her children have experienced pink eye recently and were successfully treated with Tobramycin. Pt. is given written RX for Polymyxin B opthalmic drops. Recommend follow up with Dr. Beltre. Discussed precautions to prevent spread. 02/18/2012 Appointment: Lucy Willson WPtel: [address] [place] [address] ACUTE ILLNESS 02/18/2012 Patient Education: Patient Medication Summary Completed 02/18/2012 Visit Plan: Long discussion about d iet and exercise and eating 6 manny meals a day with protein Add daily metformin 250mg Restart MV with iron Glucometer to use prn 01/08/2012 Appointment: Almaz Enriquez WPtel: [address] [place], [place] [phone] FOLLOW UP 01/08/2012 Patient Education: Patient Medication Summary Completed 01/08/2012 Appointment: Almaz Enriquez WPtel: [address] [place] [address] LAB 12/25/2011 Patient Education: Patient Medication Summary Completed 12/25/2011 Visit Plan: amoxicillin. Discussed comfort care and cold/icy fluids. Tylenol/motrin for pain. Pt. will notify if fever or worsening symptoms. Discussed completion of antibiotic regimen 10/19/2011 Appointment: Lucy Willson WPtel: [address] [place] [address] ACUTE ILLNESS 10/19/2011 Patient Education: Patient Medication Summary Completed 10/19/2011 Visit Plan: Finish omnicef then sta rt daily cipro Toradol given then sprix prn for 5 days for pain See urology due to recurrence of UTIs 09/17/2011 Appointment: Almaz Enriquez WPtel: [address] [place] [address] Hospital Follow Up 09/17/2011 Patient Education: Patient Medication Summary Completed 09/17/2011 Visit Plan: New toothebrush in 5 da ysSaline nasal flushes prn. Tylenol/Motrin prn headache. Notify if persists/symptoms worsening. 07/05/2011 Appointment: Almaz Enriquez WPtel: [address] [place] [address] ACUTE ILLNESS 07/05/2011 Patient Education: Patient Medication Summary Completed 07/05/2011 Visit Plan: Continue Protonix Add D exilant 60mg q HS Check CMP, CBC, Lipase 05/31/2011 Appointment: Almaz Enriquez WPtel: [address] [place] [address] ACUTE ILLNESS 05/31/2011 Patient Education: Patient Medication Summary Completed 05/31/2011 Visit Plan: No caffeine, no nicotin e, no mints, no late meals, elevate HOB 30 degrees Restart Protonix 04/11/2011 Appointment: Almaz Enriquez WPtel: [address] [place] [address] ACUTE ILLNESS 04/11/2011 Patient Education: Patient Medication Summary Completed 04/11/2011 Visit Plan: pt. will take Cefuroxim e axetil. Will notify if symptoms worsen. 03/13/2011 Appointment: Lucy Willson WPtel: [address] [place], [place] [phone] ACUTE ILLNESS 03/13/2011 Patient Education: Patient Medication Summary Completed 03/13/2011 Visit Plan: Continue brace for 2-4 more weeks May exercise to point of discomfort then stop 11/30/2010 Appointment: Almaz Enriquez WPtel: [address] [place] [address] FOLLOW UP 11/30/2010 Patient Education: Patient Medication Summary Completed 11/30/2010 Visit Plan: Continue aircast and ad d Vimovo po BID 11/02/2010 Appointment: Almaz Enriquez WPtel: [address] [place] [address] ER Follow UP 11/02/2010 Patient Education: Patient Medication Summary Completed 11/02/2010 Appointment: Almaz Enriquez WPtel: [address] [place] [address] 08/01/2010 Patient Education: Patient Medication Summary Completed 08/01/2010 Visit Plan: ER visit Jul 16 Starte d Flagyl yesterday. Should finish it on 03 of August. nasal spray. Singulair samples given. Pt will seek re-eval if symptoms worsen. Phoned in codeine/guif cough syrup. (Pazt) 07/25/2010 Appointment: Lucy Willson WPtel: [address] [place], [place] [phone] 07/25/2010 Patient Education: Patient Medication Summary Completed 07/25/2010 Visit Plan: Supportive care. Rest, Fluids, Tylenol/Motrin prn fever or bodyaches. Notify if worsening symptoms. 01/02/2010 Appointment: Almaz Enriquez WPtel: [address] [place], [place] [phone] ACUTE ILLNESS 01/02/2010 Patient Education: Patient Medication Summary Completed 01/02/2010 Referral: Cyrus Min WPtel: [address] [facility] Referral Appointment Requested Referral: BeberoxyCyrus WPtel: [address] [facility] [place] Referral Initiated Referral: Terrence Mehta WPtel: [address] [facility] [id number] Mehta will review and call patien to schedule Completed Referral: Judy Prasad WPtel: [address] [facility] Referral Initiated Instructions Comment . New toothebrush i n 5 daysSaline nasal flushes prn. Tylenol/Motrin prn headache. Notify if persists/symptoms worsening. . Supportive care. Rest, Fluids, Tylenol/Motrin prn fever or bodyaches. Notify if worsening symptoms. . List reglan as an allergy--tremor of thumb has improved since stopping Add carafate to protonix for next 2-4weeks If resolves will observe, if not will need updated EGD . Samples Claritin 1 0mg 1 po daily #8, Nasonex 2 sprays each nostril daily (1 sample) Nasal saline Tylenol/Ibuprofen Rest/fluids Off work today. . Follow up if sympt oms worsen Call if begins to have symptoms of vaginal yeast and will call out diflucan Recommended topical hydrocortisone cream for symptoms . Finish omnicef the n start daily cipro Toradol given then sprix prn for 5 days for pain See urology due to recurrence of UTIs . Contrave starter p ack Fwup in 2mos . Anusol HC supp for 2weeks Align daily for 2weeks If resolves then will observe as came on after recent GI bug but if persists or comes back will need colonoscopy . Complete antibioti cs Change toothbrush 1/2 way through coarse of antibiotics . Venous dopple of r ight leg ordered (tomorrow 10am) Recommended daily EC ASA until results . Venous dopple of r ight leg ordered (tomorrow 10am) Recommended daily EC ASA until results . Kenalog 40 mg andf Depo Medrol 40 mg Im now. Mucinex D daily. Nasonex nasal spray- 2 sprays eash nostril daily. . pt. will take Cefu roxime axetil. Will notify if symptoms worsen. . Continue wrist spl int Check EMG of RUE Start Vimovo once daily . Flagyl 500mg 1 po bid x 7 days (with ETOH warning) Discussed d/c is much more yeast appearing, T&M obtained. Discussed that since cervix is still present (supracervical hyst) she will need routine Pap smears. Call if no improvement by next week. . Long discussion ab out diet and exercise and eating 6 manny meals a day with protein Add daily metformin 250mg Restart MV with iron Glucometer to use prn . Stretches, moist h eat, topical biofreeze Amrix 15mg q PM Celebrex 200mg po BID . Supportive care. Rest, Fluids, Tylenol/Motrin prn fever or bodyaches. Notify if worsening symptoms. Zitthromax 500mg daily for 1wk Tussionex . Is working out rou saranegin Will do phenteramine 37.5mg Weight and BP check next 2 months then fwup in 3mos . amoxicillin. Discu ssed comfort care and cold/icy fluids. Tylenol/motrin for pain. Pt. will notify if fever or worsening symptoms. Discussed completion of antibiotic regimen . Continue Protonix Add Dexilant 60mg q HS Check CMP, CBC, Lipase . Amoxicillin dosing is too low - increase as above Infection does appear fairly mild so suspect most of her pain is from ETD/fluid issues MDP as well as antihistamines - avoid decongestant due to history of palpitations Diflucan if needed since she reports yeast infections with antibiotic use Follow up PRN . Amoxicillin dosing is too low - increase as above Infection does appear fairly mild so suspect most of her pain is from ETD/fluid issues MDP as well as antihistamines - avoid decongestant due to history of palpitations Diflucan if needed since she reports yeast infections with antibiotic use Follow up PRN . Amoxicillin dosing is too low - increase as above Infection does appear fairly mild so suspect most of her pain is from ETD/fluid issues MDP as well as antihistamines - avoid decongestant due to history of palpitations Diflucan if needed since she reports yeast infections with antibiotic use Follow up PRN . Continue aircast a nd add Vimovo po BID . Attempted to use E T popper with minimal relief Fluticasone nasal spray - 2 sprays each nostril one time daily . Attempted to use E T popper with minimal relief Fluticasone nasal spray - 2 sprays each nostril one time daily . ER visit Jul 16 S tarted Flagyl yesterday. Should finish it on 03 of August. nasal spray. Singulair samples given. Pt will seek re- eval if symptoms worsen. Phoned in codeine/guif cough syrup. (Leonid) . Continue metformin and accuchecks Restart Dexilant Check insulin level with CMP in 4mos . Continue protonix and carafate See GI for update EGD vs pH probe/etc. Discussed musculoskeletal etiology as well as patient does have some chest wall pain and thoracic pain . Continue carafate and protonix Proceed with EGD . Azithromycin and c odeine/guiaf cough syrup. 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 Discussed notifying if symptoms worsen or persist. Fluids and comfort care. . Supportive care. Rest, Fluids, Tylenol/Motrin prn fever or bodyaches. Notify if worsening symptoms. . No caffeine, no n icotine, no mints, no late meals, elevate HOB 30 degrees Restart Protonix . Continue metformin and all other meds Pt going for surgery for hysterectomy . Pt. reports both o f her children have experienced pink eye recently and were successfully treated with Tobramycin. Pt. is given written RX for Polymyxin B opthalmic drops. Recommend follow up with Dr. Beltre. Discussed precautions to prevent spread. . Await holter resul ts Avoid decongestants, caffeine Discussed likely secondary to recent illness, steroids, decongestants If persists will get ECHO . Start Loratadine 1 0mg po BID Add flonase q HS . RICE and rx as abo ve Reduce strain on knee OTC pain relievers if needed Knee sleeve Call in 7-10 days if not improving for xray orders . RICE and rx as abo ve Reduce strain on knee OTC pain relievers if needed Knee sleeve Call in 7-10 days if not improving for xray orders . Continue brace for 2-4 more weeks May exercise to point of discomfort then stop . Strep Screen - neg ative Recommending warm saline gargles and notify if symptoms worsen . Strep Screen - neg ative Recommending warm saline gargles and notify if symptoms worsen . Continue carafate once daily Check Chem 7, Insulin level today . Strep Screen - neg ative Recommending warm saline gargles and notify if symptoms worsen
--- OUTSIDE RECORDS SUMMARY | 2020-04-20 21:08 | XMS REPORT | CCD ---
Author Author Fay Enriquez D.O., DO [facility] Address [address] [place] [address] Phone Care Team Providers Care Promotions Assistant Sales Marketing Name Role Phone Almaz Enriquez D.O., PP Unavailable CCM Unavailable Summary Purpose Interface Exchange Insurance Providers Payer name Policy type / Coverage type Covered democrat ID Effective Begin Date Effective End Date Blue Cross Blue Shield Blue Cross/Bl ue Shield [id number] Unknown Family history Mother Diagnosis Age At Onset Diabetes mellitus Type 1 Unknown Social History Social History Element Codes Description Effective Dates Marital status Unknown D ivorced 09/17/[address]: [id number] Has never smoked or chewed tobacco 04/25/2011 [...] Date Stop Date Sta tus Fill Instructions Bactrim DS 800 mg-16 0 mg tablet RxNorm: 611747 1 Tablet(s) PO BID 05/25/2019 05/31/2019 Active nvmxliwh-rophrwipq-r ydrocort 3.5 mg/mL-10,000 unit/mL-1 % ear solution RxNorm: 025962 4 Drop(s) otic (ear) TID 12/17/2018 12/16/2018 Inactive iruelerg-rakrbdqus-i ydrocort 3.5 mg/mL-10,000 unit/mL-1 % ear solution RxNorm: 608081 4 Drop(s) otic (ear) TID 12/17/2018 12/23/2018 Inactive right ear ofloxacin 0.3 % ear drops RxNorm: 749841 5 Drop(s) otic (ear) BID 12/16/2018 12/16/2018 Inactive right ear amoxicillin 875 mg t ablet RxNorm: 064028 1 Tablet(s) PO BID 12/16/2018 12/25/2018 Inactive Diflucan 200 mg tablet RxNorm: 449886 1 Tablet(s) PO Q72H 12/16/2018 01/04/2019 Inactive Bactrim DS 800 mg-16 0 mg tablet RxNorm: 883029 1 Tablet(s) PO BID 12/02/2018 12/01/2018 Inactive Bactrim DS 800 mg-16 0 mg tablet RxNorm: 667557 1 Tablet(s) PO BID 12/02/2018 12/08/2018 Inactive Protonix 40 mg table t,delayed release RxNorm: 855268 1 Tablet(s) PO QD 09/23/2018 12/21/2018 In active Protonix 40 mg table t,delayed release RxNorm: 124248 1 Tablet(s) PO BID 09/18/2018 09/22/2018 In active Voltaren 1 % topical gel RxNorm: 758526 2 Gram(s) TOP QID to right knee 08/28/2018 05/05/2019 In active Diflucan 150 mg tablet RxNorm: 841124 1 Tablet(s) PO Q72H Take one tablet toda y and repeat in 3 days if no improvement. 10/23/2017 08/17/2018 Inactive Diflucan 150 mg tablet RxNorm: 482270 1 Tablet(s) PO Q72H Take one tablet toda y and repeat in 3 days if no improvement. 10/04/2017 10/22/2017 Inactive ofloxacin 0.3 % ear drops RxNorm: 229783 4 Drop(s) OTIC TID fo r 1 week 06/24/2017 08/17/2018 In active Medrol (Scar) 4 mg ta blets in a dose pack RxNorm: 798040 Take as directed 01/18/2017 04/10/2017 In active ketoconazole 2 % top ical cream RxNorm: 559268 Application TOP BID t o lesion x 2 weeks 11/26/2016 01/17/2017 Inactive Protonix 40 mg table t,delayed release RxNorm: 256643 1 TABLET(S) PO QD 10/13/2016 05/05/2019 In active phentermine 37.5 mg tablet RxNorm: 937435 1 Tablet(s) PO QAM 08/23/2016 11/25/2016 Inactive Medrol (Scar) 4 mg ta blets in a dose pack RxNorm: 451437 Take as directed 06/14/2016 08/22/2016 In active Diflucan 150 mg tablet RxNorm: 505651 1 Tablet(s) PO QD . May repeat in 2-3 da ys if needed. 04/10/2016 04/11/2016 Inactive amoxicillin 875 mg t ablet RxNorm: 360169 1 Tablet(s) PO BID 04/10/2016 04/18/2016 Inactive Medrol (Scar) 4 mg ta blets in a dose pack RxNorm: 639940 Take as directed 04/10/2016 04/18/2016 In active Anusol-HC 25 mg supp ository RxNorm: 2053325 1 Suppository RTL BID 06/28/2015 07/11/2015 Inactive Protonix 40 mg table t,delayed release RxNorm: 471495 1 Tablet(s) PO QD 04/27/2015 10/23/2015 In active Contrave 8 mg-90 mg tablet,extended release RxNorm: 3231181 1 Tablet(s) PO QAM f or 1 week then 1 po BID for 1week then 1 in AM and 2 in PM for 1week then 2 po BID 03/29/2015 06/27/2015 Inactive [SAVINGS FOR UNINSURED PATIENTS -- BIN:0 65408, PCN: [id number], Group: [id number], ID# [id number], Process claim through [employer], for questions: . THIS IS NOT INSURANCE.] Flonase Allergy Reli ef 50 mcg/actuation nasal spray,suspension RxNorm: 2 Marshall NASAL QHS 02/15/2015 03/28/2015 Inactive Carafate 1 gram tablet RxNorm: 640199 1 Tablet(s) PO AC & HS 12/30/2014 06/13/2016 Inactive Diflucan 100 mg tablet RxNorm: 912030 1 Tablet(s) PO QD 09/30/2014 10/06/2014 Inactive metformin ER 500 mg tablet,extended release 24hr RxNorm: 307505 1/2 Tablet(s) PO QD 09/15/2014 12/29/2014 In active metformin ER 500 mg tablet,extended release 24hr RxNorm: 633434 1/2 Tablet(s) PO QD 09/15/2014 09/14/2014 In active Carafate 1 gram tablet RxNorm: 786106 1 Tablet(s) PO AC & HS 07/19/2014 09/16/2014 Inactive Diflucan 100 mg tablet RxNorm: 326314 1 Tablet(s) PO QD 12/28/2013 01/03/2014 Inactive amoxicillin 875 mg t ablet RxNorm: 621474 1 Tablet(s) PO BID 12/25/2013 01/03/2014 Inactive Protonix 40 mg table t,delayed release RxNorm: 394463 1 Tablet(s) PO QD 12/03/2013 07/25/2014 In active Zithromax 250 mg tablet RxNorm: 608203 2 Tablet(s) PO QD 09/15/2013 09/21/2013 Inactive Flagyl 500 mg tablet RxNorm: 434177 1 Tablet(s) PO Q12H 06/12/2013 06/18/2013 Inactive Diflucan 100 mg tablet RxNorm: 029509 1 Tablet(s) PO QD 12/08/2012 12/14/2012 Inactive Diflucan 100 mg tablet RxNorm: 805680 1 Tablet(s) PO QD 12/08/2012 12/07/2012 Inactive azithromycin 250 mg tablet RxNorm: 356874 2 Tablet(s) PO QD ant ibiotic 10/30/2012 11/06/2012 In active Carafate 1 gram Tab RxNorm: 302119 1 Tablet(s) PO AC 05/27/2012 06/11/2013 Inactive MetroCream 0.75 % To pical RxNorm: 271136 Application TOP BID 05/27/2012 06/11/2013 Inactive to face Protonix 40 mg Tab RxNorm: 646294 1 Tablet(s) PO QD 2012 11/15/2012 Inactive Dexilant 60 mg Capsule RxNorm: 450835 1 Capsule(s) PO QD 04/30/2012 05/26/2012 Inactive metformin ER 500 mg 24 hr Tab RxNorm: 266749 1 Tablet(s) PO QAM 04/30/2012 10/29/2012 Inactive tobramycin 0.3 % Eye Drops RxNorm: 184541 1-2 Drop(s) OPH Q4H o ne to two drops in effected eye(s) every four hours for a maximum of 7 days. If no improvement in 1-2 days need eval 02/15/2012 02/19/2012 Inactive amoxicillin 875 mg t ablet RxNorm: 903550 1 Tablet(s) PO BID 10/19/2011 10/28/2011 Inactive Protonix 40 mg Tab RxNorm: 738868 1 Tablet(s) PO QD 04/11/2011 10/07/2011 Inactive cefuroxime axetil 50 0 mg Tab RxNorm: 599524 1 Tablet(s) PO BID 03/13/2011 03/22/2011 Inactive Ibuprofen 600 mg Tab RxNorm: 123703 1 Tablet(s) PO TID prn pain 04/26/2010 06/24/2010 Inactive Levapak 750 mg Tablet RxNorm: 1 Tablet(s) PO QD 01/02/2010 01/06/2010 Inactive Children's Multivita mins with Iron chewable tablet RxNorm: 1 Tablet(s) PO QD No Start Date Active Cortisporin otic (ear) RxNorm: 50992 otic (ear) No Start Date 12/16/2018 Inactive Sprix 15.75 mg/spray Nasal Marshall RxNorm: 1026302 1 Marshall NASAL QID ea ch nostril--for pain for 5 days No Start Date 01/07/2012 Inactive Promethazine-Codeine 6.25 mg-10 mg/5 mL Syrup RxNorm: 657946 1-2 Teaspoon(s) PO Q4 H prn cough No Start Date 04/10/2011 Inactive metformin ER 500 mg 24 hr Tab RxNorm: 252042 1/2 Tablet(s) PO QAM No Start Date 04/29/2012 Inactive metformin ER 500 mg 24 hr tablet,extended release RxNorm: 817747 1/2 Tablet(s) PO QD No Start Date 12/27/2012 Inactive Protonix 40 mg table t,delayed release RxNorm: 144120 1 Tablet(s) PO QD No Start Date 12/02/2013 Inactive Carafate 1 gram Tab RxNorm: 921278 1 Tablet(s) PO AC No Start Date 05/26/2012 Inactive Flonase 50 mcg/Actua tion Nasal Marshall RxNorm: 7909357 1 Marshall NASAL BID No Start Date 04/10/2011 Inactive Protonix 40 mg table t,delayed release RxNorm: 122412 1 Tablet(s) PO BID No Start Date 12/29/2014 Inactive Protonix 40 mg Tab RxNorm: 407173 1 Tablet(s) PO QD No Start Date 07/20/2013 Inactive Dexilant 60 mg capsu le, delayed release RxNorm: 679564 1 Capsule(s) PO QD No Start Date 06/23/2017 Inactive Diflucan 150 mg tablet RxNorm: 844612 1 Tablet(s) PO Q72H Take one tablet toda y and repeat in 3 days if no improvement. No Start Date 10/03/2017 Inactive Protonix 40 mg table t,delayed release RxNorm: 388301 1 Tablet(s) PO QD No Start Date 04/26/2015 Inactive MetroCream 0.75 % To pical RxNorm: 015846 Application TOP BID No Start Date 05/26/2012 Inactive to face Zithromax Z-Scar 250 mg Tab RxNorm: 156201 1 Tablet(s) PO QD No Start Date 09/16/2011 Inactive as directed Protonix 40 mg table t,delayed release RxNorm: 479880 1 Tablet(s) PO BID No Start Date [...] patient's history of reflux knee pain 06/14/2016 Pat ient woke up with Sharp pain 1 week ago. Patient is unable to remember any event that could have caused the pain follow up 04/19/2016 otalgia 04/10/2016 Taina nt went to Urgent care this past Saturday [...] Item Code Result Date THYROID STIMULATING HORMONE 93422 TSH 1.360 uIU/ML 5 COMPREHENSIVE METABOLIC 68518 AST 12 U/L 10/03/2015 COMPREHENSIVE METABOLIC 71732 ALT 9 IU/L 10/03/2015 COMPREHENSIVE METABOLIC 81049 BUN 10 MG/DL 10/03/2015 COMPREHENSIVE METABOLIC 28226 ALBUMIN 4.3 GM/DL 10/03/2015 COMPREHENSIVE METABOLIC 30430 CHLORIDE 104 MMOL/L 10/03/2015 COMPREHENSIVE METABOLIC 86640 BILI TOT 0.3 MG/DL 10/03/2015 COMPREHENSIVE METABOLIC 50054 ALK PHOS 34 U/L 10/03/2015 COMPREHENSIVE METABOLIC 22974 SODIUM 137 MMOL/L 10/03/2015 COMPREHENSIVE METABOLIC 54126 CREATININE 0.77 MG/DL 10/03/2015 COMPREHENSIVE METABOLIC 62429 CALCIUM 9.6 MG/DL 10/03/2015 COMPREHENSIVE METABOLIC 46155 POTASSIUM 4.1 MMOL/L 10/03/2015 COMPREHENSIVE METABOLIC 14412 PROT TOT 7.1 GM/DL 10/03/2015 COMPREHENSIVE METABOLIC 75496 Glucose 92 MG/DL 10/03/2015 COMPREHENSIVE METABOLIC 91893 BICARB 27 MMOL/L 10/03/2015 COMPREHENSIVE METABOLIC 52224 ANION GAP 6 MEQ/L 10/03/2015 LIPID GROUP [address] 52 MG/DL 10/03/2015 LIPID GROUP 61183 TRIG 78 MG/DL 10/03/2015 LIPID GROUP 49927 TEST L DL 114 MG/DL 10/03/2015 LIPID GROUP 82824 CHOL 182 MG/DL 10/03/2015 LIPID GROUP 26289 RCHOL/ HDL 3.50 RATIO 10/03/2015 LIPID GROUP 44734 NON-HD L CH 130 MG/DL 10/03/2015 GFR CALC 4952353 GFR AA >60 ML/MIN 10/03/2015 GFR CALC 8543588 GFR NON -AA >60 ML/MIN 10/03/2015 COMPLETE BLOOD COUNT 9086708 WBC 4.9 10e9/L 10/03/2015 COMPLETE BLOOD COUNT 1156958 RBC 4.49 10e12/L 5 COMPLETE BLOOD COUNT 2534447 HGB 11.3 g/dL 10/03/2015 COMPLETE BLOOD COUNT 7459587 HCT DET 34.7 % 10/03/2015 COMPLETE BLOOD COUNT 1683659 MCV 77.3 fL 10/03/2015 COMPLETE BLOOD COUNT 1547141 MCH 25.2 pg 10/03/2015 COMPLETE BLOOD COUNT 1187948 MCHC 32.6 g/dL 10/03/2015 COMPLETE BLOOD COUNT 1909920 PLT 314 10e9/L 10/03/2015 COMPLETE BLOOD COUNT 2421408 MPV 10.4 fL 10/03/2015 COMPLETE BLOOD COUNT 5397352 ALEXX % 41.0 % 10/03/2015 COMPLETE BLOOD COUNT 4699241 LY % 47.7 % 10/03/2015 COMPLETE BLOOD COUNT 2345637 MON % 8.4 % 10/03/2015 COMPLETE BLOOD COUNT 5972692 EOS % 2.7 % 10/03/2015 COMPLETE BLOOD COUNT 3908361 BASO % 0.2 % 10/03/2015 COMPLETE BLOOD COUNT 3483136 RDW 14.5 % 10/03/2015 COMPLETE BLOOD COUNT 7362412 ABS ALEXX 2.01 10e9/L 10/03/2015 COMPLETE BLOOD COUNT 4340698 ABS LYMPH 2.34 10e9/L 10/03/2015 COMPLETE BLOOD COUNT 4651395 ABS MONO 0.41 10e9/L 10/03/2015 COMPLETE BLOOD COUNT 2872348 ABS EOS 0.13 10e9/L 10/03/2015 COMPLETE BLOOD COUNT 1635723 ABS BASO 0.01 10e9/L 10/03/2015 COMPLETE BLOOD COUNT 5164596 RDW-SD 39.6 fL 10/03/2015 FREE T4 70662 FREE T4 1.08 NG/DL 10/03/2015 GFR CALC 4675203 GFR AA >60 ML/MIN 12/25/2012 GFR CALC 1893006 GFR NON -AA >60 ML/MIN 12/25/2012 INSULIN SERUM 00685 INSU BRITT 5.0 mU/L 12/25/2012 BASIC METABOLIC PANEL 80213 Glucose 82 MG/DL 12/25/2012 BASIC METABOLIC PANEL 48631 CREATININE 0.83 MG/DL 12/25/2012 BASIC METABOLIC PANEL 70623 BUN 9 MG/DL 12/25/2012 BASIC METABOLIC PANEL 99829 SODIUM 139 MMOL/L 12/25/2012 BASIC METABOLIC PANEL 24645 BICARB 26 MMOL/L 12/25/2012 BASIC METABOLIC PANEL 64618 POTASSIUM 4.3 MMOL/L 12/25/2012 BASIC METABOLIC PANEL 13471 ANION GAP 8 MEQ/L 12/25/2012 BASIC METABOLIC PANEL 53452 CHLORIDE 105 MMOL/L 12/25/2012 BASIC METABOLIC PANEL 64150 CALCIUM 9.6 MG/DL 12/25/2012 GFR CALC 5573205 GFR AA >60 ML/MIN 08/27/2012 GFR CALC 0694452 GFR NON -AA >60 ML/MIN 08/27/2012 COMPREHENSIVE METABOLIC 96963 AST 16 U/L 08/27/2012 COMPREHENSIVE METABOLIC 05066 ALT 11 IU/L 08/27/2012 COMPREHENSIVE METABOLIC 65431 BUN 9 MG/DL 08/27/2012 COMPREHENSIVE METABOLIC 77823 ALBUMIN 4.1 GM/DL 08/27/2012 COMPREHENSIVE METABOLIC 43095 CHLORIDE 106 MMOL/L 08/27/2012 COMPREHENSIVE METABOLIC 73011 BILI TOT 0.2 MG/DL 08/27/2012 COMPREHENSIVE METABOLIC 66545 ALK PHOS 35 U/L 08/27/2012 COMPREHENSIVE METABOLIC 18455 SODIUM 137 MMOL/L 08/27/2012 COMPREHENSIVE METABOLIC 41101 CREATININE 0.80 MG/DL 08/27/2012 COMPREHENSIVE METABOLIC 90269 CALCIUM 9.2 MG/DL 08/27/2012 COMPREHENSIVE METABOLIC 16510 POTASSIUM 4.5 MMOL/L 08/27/2012 COMPREHENSIVE METABOLIC 17712 PROT TOT 6.9 GM/DL 08/27/2012 COMPREHENSIVE METABOLIC 26924 Glucose 92 MG/DL 08/27/2012 COMPREHENSIVE METABOLIC 92145 BICARB 25 MMOL/L 08/27/2012 COMPREHENSIVE METABOLIC 16076 ANION GAP 6 MEQ/L 08/27/2012 INSULIN SERUM 96166 INSU BRITT 10.6 mU/L 08/27/2012 GFR CALC 4921639 GFR AA >60 ML/MIN 04/29/2012 GFR CALC 3963784 GFR NON -AA >60 ML/MIN 04/29/2012 GLYCOSYLATED HEMOGLOBIN TEST 47874 A1C HPLC 94659-1 5.6 % 04/29/2012 COMPREHENSIVE METABOLIC 21051 AST 14 U/L 04/29/2012 COMPREHENSIVE METABOLIC 83176 ALT 9 IU/L 04/29/2012 COMPREHENSIVE METABOLIC 15094 BUN 11 MG/DL 04/29/2012 COMPREHENSIVE METABOLIC 12626 ALBUMIN 4.4 GM/DL 04/29/2012 COMPREHENSIVE METABOLIC 98552 CHLORIDE 105 MMOL/L 04/29/2012 COMPREHENSIVE METABOLIC 61003 BILI TOT 0.2 MG/DL 04/29/2012 COMPREHENSIVE METABOLIC 92649 ALK PHOS 36 U/L 04/29/2012 COMPREHENSIVE METABOLIC 72599 SODIUM 139 MMOL/L 04/29/2012 COMPREHENSIVE METABOLIC 99154 CREATININE 0.80 MG/DL 04/29/2012 COMPREHENSIVE METABOLIC 32015 CALCIUM 9.5 MG/DL 04/29/2012 COMPREHENSIVE METABOLIC 38635 POTASSIUM 4.4 MMOL/L 04/29/2012 COMPREHENSIVE METABOLIC 78549 PROT TOT 6.6 GM/DL 04/29/2012 COMPREHENSIVE METABOLIC 50779 Glucose 81 MG/DL 04/29/2012 COMPREHENSIVE METABOLIC 06219 BICARB 26 MMOL/L 04/29/2012 COMPREHENSIVE METABOLIC 46823 ANION GAP 8 MEQ/L 04/29/2012 INSULIN SERUM 46848 INSU BRITT 28.2 mU/L 12/26/2011 COMPREHENSIVE METABOLIC 42348 AST 19 U/L 12/25/2011 COMPREHENSIVE METABOLIC 27036 ALT 15 IU/L 12/25/2011 COMPREHENSIVE METABOLIC 84649 BUN 8 MG/DL 12/25/2011 COMPREHENSIVE METABOLIC 14873 ALBUMIN 4.6 GM/DL 12/25/2011 COMPREHENSIVE METABOLIC 35395 CHLORIDE 105 MMOL/L 12/25/2011 COMPREHENSIVE METABOLIC 01206 BILI TOT 0.4 MG/DL 12/25/2011 COMPREHENSIVE METABOLIC 03788 ALK PHOS 38 U/L 12/25/2011 COMPREHENSIVE METABOLIC 95548 SODIUM 141 MMOL/L 12/25/2011 COMPREHENSIVE METABOLIC 59157 CREATININE 0.74 MG/DL 12/25/2011 COMPREHENSIVE METABOLIC 59149 CALCIUM 9.4 MG/DL 12/25/2011 COMPREHENSIVE METABOLIC 96721 POTASSIUM 4.1 MMOL/L 12/25/2011 COMPREHENSIVE METABOLIC 86774 PROT TOT 7.6 GM/DL 12/25/2011 COMPREHENSIVE METABOLIC 54482 Glucose 53 MG/DL 12/25/2011 COMPREHENSIVE METABOLIC 75221 BICARB 25 MMOL/L 12/25/2011 COMPREHENSIVE METABOLIC 95554 ANION GAP 11 MEQ/L 12/25/2011 COMPLETE BLOOD COUNT 07988 WBC 3.7 10e9/L 12/25/2011 COMPLETE BLOOD COUNT 75903 RBC 4.53 10e12/L 2 COMPLETE BLOOD COUNT 56169 HGB 11.4 g/dL 12/25/2011 COMPLETE BLOOD COUNT 97820 HCT DET 35.4 % 12/25/2011 COMPLETE BLOOD COUNT 33660 MCV 78.1 fL 12/25/2011 COMPLETE BLOOD COUNT 64897 MCH 25.2 pg 12/25/2011 COMPLETE BLOOD COUNT 47291 MCHC 32.2 g/dL 12/25/2011 COMPLETE BLOOD COUNT 67525 PLT 327 10e9/L 12/25/2011 COMPLETE BLOOD COUNT 25022 MPV 10.9 fL 12/25/2011 COMPLETE BLOOD COUNT 79185 ALEXX % 30.9 % 12/25/2011 COMPLETE BLOOD COUNT 42567 LY % 57.0 % 12/25/2011 COMPLETE BLOOD COUNT 82087 MON % 9.1 % 12/25/2011 COMPLETE BLOOD COUNT 42654 EOS % 2.7 % 12/25/2011 COMPLETE BLOOD COUNT 40527 BASO % 0.3 % 12/25/2011 COMPLETE BLOOD COUNT 56165 RDW 14.0 % 12/25/2011 COMPLETE BLOOD COUNT 77014 ABS ALEXX 1.14 10e9/L 12/25/2011 COMPLETE BLOOD COUNT 79333 ABS LYMPH 2.11 10e9/L 12/25/2011 COMPLETE BLOOD COUNT 30883 ABS MONO 0.34 10e9/L 12/25/2011 COMPLETE BLOOD COUNT 71381 ABS EOS 0.10 10e9/L 12/25/2011 COMPLETE BLOOD COUNT 73534 ABS BASO 0.01 10e9/L 12/25/2011 COMPLETE BLOOD COUNT 24145 RDW-SD 39.0 fL 12/25/2011 GFR CALC 8166983 GFR AA >60 ML/MIN 12/25/2011 GFR CALC 8093337 GFR NON -AA >60 ML/MIN 12/25/2011 AMYLASE 65437 AMYLASE 63 IU/L 05/31/2011 GFR CALC 6757333 GFR AA >60 ML/MIN 05/31/2011 GFR CALC 5577857 GFR NON -AA >60 ML/MIN 05/31/2011 COMPLETE BLOOD COUNT 25675 WBC 5.0 10e9/L 05/31/2011 COMPLETE BLOOD COUNT 84591 RBC 4.56 10e12/L 1 COMPLETE BLOOD COUNT 28561 HGB 11.6 g/dL 05/31/2011 COMPLETE BLOOD COUNT 81600 HCT DET 35.1 % 05/31/2011 COMPLETE BLOOD COUNT 15462 MCV 77.0 fL 05/31/2011 COMPLETE BLOOD COUNT 73554 MCH 25.4 pg 05/31/2011 COMPLETE BLOOD COUNT 36254 MCHC 33.0 g/dL 05/31/2011 COMPLETE BLOOD COUNT 22505 PLT 313 10e9/L 05/31/2011 COMPLETE BLOOD COUNT 80066 MPV 11.0 fL 05/31/2011 COMPLETE BLOOD COUNT 36584 ALEXX % 37.7 % 05/31/2011 COMPLETE BLOOD COUNT 16112 LY % 49.1 % 05/31/2011 COMPLETE BLOOD COUNT 49274 MON % 10.4 % 05/31/2011 COMPLETE BLOOD COUNT 59088 EOS % 2.6 % 05/31/2011 COMPLETE BLOOD COUNT 74696 BASO % 0.2 % 05/31/2011 COMPLETE BLOOD COUNT 19340 RDW 13.7 % 05/31/2011 COMPLETE BLOOD COUNT 58817 ABS ALEXX 1.89 10e9/L 05/31/2011 COMPLETE BLOOD COUNT 48002 ABS LYMPH 2.46 10e9/L 05/31/2011 COMPLETE BLOOD COUNT 00418 ABS MONO 0.52 10e9/L 05/31/2011 COMPLETE BLOOD COUNT 69024 ABS EOS 0.13 10e9/L 05/31/2011 COMPLETE BLOOD COUNT 49472 ABS BASO 0.01 10e9/L 05/31/2011 COMPLETE BLOOD COUNT 84055 RDW-SD 37.4 fL 05/31/2011 COMPREHENSIVE METABOLIC 98428 AST 16 U/L 05/31/2011 COMPREHENSIVE METABOLIC 75712 ALT 10 IU/L 05/31/2011 COMPREHENSIVE METABOLIC 32811 BUN 9 MG/DL 05/31/2011 COMPREHENSIVE METABOLIC 00145 ALBUMIN 4.4 GM/DL 05/31/2011 COMPREHENSIVE METABOLIC 66498 CHLORIDE 102 MMOL/L 05/31/2011 COMPREHENSIVE METABOLIC 16076 BILI TOT 0.3 MG/DL 05/31/2011 COMPREHENSIVE METABOLIC 16014 ALK PHOS 36 U/L 05/31/2011 COMPREHENSIVE METABOLIC 24042 SODIUM 138 MMOL/L 05/31/2011 COMPREHENSIVE METABOLIC 04338 CREATININE 0.72 MG/DL 05/31/2011 COMPREHENSIVE METABOLIC 90610 CALCIUM 9.6 MG/DL 05/31/2011 COMPREHENSIVE METABOLIC 80928 POTASSIUM 3.9 MMOL/L 05/31/2011 COMPREHENSIVE METABOLIC 56677 PROT TOT 7.2 GM/DL 05/31/2011 COMPREHENSIVE METABOLIC 78387 Glucose 82 MG/DL 05/31/2011 COMPREHENSIVE METABOLIC 37321 BICARB 29 MMOL/L 05/31/2011 COMPREHENSIVE METABOLIC 73274 ANION GAP 7 MEQ/L 05/31/2011 LIPASE 97013 LIPASE 11 IU/L 05/31/2011 Review of Systems [...] nodes Right anterior cervical chain: size (cm): 1 10/19/2011 None Full Exam - General [...] Date URINE CULTURE/ COLON Y COUNT CPT-4: 51832 05/25/2019 STREP A ASSAY W/OPTIC CPT-4: 60052 12/16/2018 URINE CULTURE/ COLON Y COUNT CPT-4: 91149 12/02/2018 URINALYSIS NONAUTO W /O SCOPE CPT-4: 72615 10/21/2017 URINE CULTURE/ COLON Y COUNT CPT-4: 02299 10/21/2017 STREP A ASSAY W/OPTIC CPT-4: 15942 11/22/2015 ROUTINE VENIPUNCTURE CPT-4: 41785 10/03/2015 ASSAY OF FREE THYROXINE CPT-4: 65356 10/03/2015 ASSAY THYROID STIM H ORMONE CPT-4: 38794 10/03/2015 COMPREHEN METABOLIC PANEL CPT-4: 42305 10/03/2015 COMPLETE CBC W/AUTO DIFF WBC CPT-4: 49338 10/03/2015 LIPID PANEL CPT-4: 31603 10/03/2015 URINALYSIS NONAUTO W /O SCOPE CPT-4: 25919 08/01/2015 URINE CULTURE/ COLON Y COUNT CPT-4: 26167 08/01/2015 STREP A ASSAY W/OPTIC CPT-4: 03111 12/25/2013 URINALYSIS NONAUTO W /O SCOPE CPT-4: 69095 12/17/2013 THER/PROPH/DIAG INJ SC/IM CPT-4: 86848 07/21/2013 METHYLPREDNISOLONE 4 0 MG INJ CPT-4: J1030 07/21/2013 TRIAMCINOLONE ACET I [place] NOS CPT-4: J3301 07/21/2013 C WET MO CPT-4: 56707 06/12/2013 ROUTINE VENIPUNCTURE CPT-4: 66630 12/25/2012 METABOLIC PANEL TOTA L CA CPT-4: 44781 12/25/2012 ASSAY OF INSULIN CPT-4: 96992 12/25/2012 ROUTINE VENIPUNCTURE CPT-4: 66506 08/27/2012 COMPREHEN METABOLIC PANEL CPT-4: 91378 08/27/2012 ASSAY OF INSULIN CPT-4: 42359 08/27/2012 ROUTINE VENIPUNCTURE CPT-4: 47661 04/29/2012 COMPREHEN METABOLIC PANEL CPT-4: 57212 04/29/2012 A1C GLYCOSYLATED HEM OGLOBIN TEST CPT-4: 24651 04/29/2012 COMPLETE CBC W/AUTO DIFF WBC CPT-4: 93837 12/25/2011 COMPREHEN METABOLIC PANEL CPT-4: 34006 12/25/2011 ROUTINE VENIPUNCTURE CPT-4: 33929 12/25/2011 ASSAY OF INSULIN CPT-4: 20683 12/25/2011 THER/PROPH/DIAG INJ SC/IM CPT-4: 40349 09/17/2011 KETOROLAC TROMETHAMI NE INJ CPT-4: J1885 09/17/2011 ROUTINE VENIPUNCTURE CPT-4: 91427 05/31/2011 COMPREHEN METABOLIC PANEL CPT-4: 13416 05/31/2011 COMPLETE CBC W/AUTO DIFF WBC CPT-4: 11876 05/31/2011 ASSAY OF LIPASE CPT-4: 48105 05/31/2011 ASSAY OF AMYLASE CPT-4: 54232 05/31/2011 URINALYSIS NONAUTO W /O SCOPE CPT-4: 88916 08/01/2010 URINE CULTURE/ COLON Y COUNT CPT-4: 96067 08/01/2010 Vital Signs Date Vital 05/25/2019 Blood [...] 1: 136/86 Code: 8480-6 BMI: 33.5 Code: 19337-8 Heart Rate 1: 92 bpm Height: 5'2" Respiratory Rate: 20 bpm Temperature: 37.1 (C ) / 98.8 (F) Weight: 180 lbs 08/18/2018 Blood Pressure 1: 136/78 Code: 8480-6 Heart Rate 1: 91 bpm Respiratory Rate: 18 bpm SpO2: 99% Temperature: 36.4 (C ) / 97.5 (F) Weight: 183 lbs 06/24/2017 Blood Pressure 1: 140/80 Code: 8480-6 BMI: 34.2 Code: 13263-0 Heart Rate 1: 76 bpm Height: 5'2" Respiratory Rate: 20 bpm Temperature: 36.7 (C ) / 98.0 (F) Weight: 184 lbs 04/11/2017 Blood Pressure 1: 132/86 Code: 8480-6 Heart Rate 1: 84 bpm Respiratory Rate: 20 bpm SpO2: 97% Temperature: 36.6 (C ) / 97.8 (F) Weight: 181 lbs 01/18/2017 Blood Pressure 1: 122/80 Code: 8480-6 BMI: 31.6 Code: 17121-9 Heart Rate 1: 76 bpm Height: 5'2" Respiratory Rate: 20 bpm SpO2: 96% Temperature: 36.7 (C ) / 98.1 (F) Weight: 170 lbs 11/26/2016 Blood Pressure 1: 128/80 Code: 8480-6 BMI: 31.0 Code: 03122-7 Heart Rate 1: 84 bpm Height: 5'2" Respiratory Rate: 20 bpm SpO2: 98% Temperature: 36.8 (C ) / 98.2 (F) Weight: 167 lbs 10/25/2016 Blood Pressure 1: 118/76 Code: 8480-6 BMI: 30.9 Code: 76171-9 Heart Rate 1: 72 bpm Height: 5'2" Weight: 166 lbs 09/21/2016 Blood Pressure 1: 124/70 Code: 8480-6 BMI: 31.0 Code: 70920-2 Heart Rate 1: 80 bpm Height: 5'2" Weight: 167 lbs 08/23/2016 Blood Pressure 1: 138/82 Code: 8480-6 BMI: 31.6 Code: 71287-1 Heart Rate 1: 64 bpm Height: 5'2" [...] 1: 140/78 Code: 8480-6 BMI: 33.5 Code: 18961-8 Heart Rate 1: 82 bpm Height: 5'2" Respiratory Rate: 22 bpm SpO2: 97% Temperature: 36.3 (C ) / 97.4 (F) Weight: 180 lbs 11/22/2015 Blood Pressure 1: 110/68 Code: 8480-6 BMI: 33.1 Code: 52843-5 Heart Rate 1: 80 bpm Height: 5'2" Respiratory Rate: 20 bpm Temperature: 36.8 (C ) / 98.3 (F) Weight: 178 lbs 06/28/2015 Blood Pressure 1: 124/70 Code: 8480-6 BMI: 31.0 Code: 21727-1 Heart Rate 1: 80 bpm Height: 5'2" Respiratory Rate: 20 bpm Temperature: 36.8 (C ) / 98.3 (F) Weight: 167 lbs 05/02/2015 Blood Pressure 1: 122/76 Code: 8480-6 BMI: 31.4 Code: 94637-9 Heart Rate 1: 78 bpm Height: 5'2" Respiratory Rate: 20 bpm Temperature: 36.3 (C ) / 97.4 (F) Weight: 169 lbs 03/29/2015 Blood Pressure 1: 126/78 Code: 8480-6 BMI: 30.9 Code: 34158-4 Heart Rate 1: 88 bpm Height: 5'2" Respiratory Rate: 20 bpm Temperature: 37.1 (C ) / 98.7 (F) Weight: 166 lbs 02/15/2015 Blood Pressure 1: 126 Code: 8480-6 BMI: 30.5 Code: 96480-8 Heart Rate 1: 76 bpm Height: 5'2" Respiratory Rate: 20 bpm Temperature: 36.6 (C ) / 97.8 (F) Weight: 164 lbs 12/30/2014 Blood Pressure 1: 118/84 Code: 8480-6 BMI: 30.1 Code: 39321-6 Heart Rate 1: 84 bpm Height: 5'2" Respiratory Rate: 20 bpm Temperature: 37.0 (C ) / 98.6 (F) Weight: 162 lbs 09/30/2014 Blood Pressure 1: 132/68 Code: 8480-6 BMI: 30.1 Code: 90242-4 Heart Rate 1: 84 bpm Height: 5'2" Respiratory Rate: 22 bpm Temperature: 36.5 (C ) / 97.7 (F) Weight: 162 lbs 07/19/2014 Blood Pressure 1: 126/78 Code: 8480-6 BMI: 29.7 Code: 70974-3 Heart Rate 1: 72 bpm Height: 5'2" Respiratory Rate: 20 bpm Temperature: 36.8 (C ) / 98.2 (F) Weight: 160 lbs 06/01/2014 Blood Pressure 1: 132/86 Code: 8480-6 BMI: 29.6 Code: 27655-4 Heart Rate 1: 72 bpm Height: 5'2" [...] 1: 122/80 Code: 8480-6 BMI: 29.6 Code: 06421-6 Heart Rate 1: 80 bpm Height: 5'2" Respiratory Rate: 20 bpm Temperature: 36.8 (C ) / 98.3 (F) Weight: 159 lbs 08/14/2013 Blood Pressure 1: 138/82 Code: 8480-6 BMI: 27.5 Code: 83484-2 Heart Rate 1: 66 bpm Height: 5'2" Respiratory Rate: 20 bpm Temperature: 36.5 (C ) / 97.7 (F) Weight: 148 lbs 08/03/2013 Blood Pressure 1: 126/82 Code: 8480-6 BMI: 29.1 Code: 19451-3 Heart Rate 1: 72 bpm Height: 5'1" Respiratory Rate: 20 bpm Temperature: 36.6 (C ) / 97.8 (F) Weight: 154 lbs 07/21/2013 Blood Pressure 1: 124/70 Code: 8480-6 BMI: 28.3 Code: 97286-8 Heart Rate 1: 64 bpm Height: 5'1" Respiratory Rate: 22 bpm Temperature: 36.5 (C ) / 97.7 (F) Weight: 150 lbs 06/12/2013 Blood Pressure 1: 124/78 Code: 8480-6 BMI: 28.6 Code: 81019-4 Heart Rate 1: 88 bpm Height: 5'2" Respiratory Rate: 20 bpm Temperature: 36.9 (C ) / 98.4 (F) Weight: 154 lbs 12/25/2012 Blood Pressure 1: 128/84 Code: 8480-6 BMI: 27.0 Code: 35937-2 Heart Rate 1: 76 bpm Height: 5'2" Respiratory Rate: 20 bpm Temperature: 36.9 (C ) / 98.4 (F) Weight: 145 lbs 10/30/2012 Blood Pressure 1: 122/68 Code: 8480-6 BMI: 28.8 Code: 66371-8 Heart Rate 1: 60 bpm Height: 5'2" Temperature: 36.9 (C ) / 98.5 (F) Weight: 155 lbs 08/28/2012 Blood Pressure 1: 112/80 Code: 8480-6 BMI: 29.7 Code: 69537-8 Heart Rate 1: 72 bpm Height: 5'2" Respiratory Rate: 20 bpm Temperature: 36.9 (C ) / 98.5 (F) Weight: 160 lbs 05/27/2012 Blood Pressure 1: 128/80 Code: 8480-6 BMI: 28.4 Code: 17091-5 Heart Rate 1: 72 bpm Height: 5'2" Respiratory Rate: 20 bpm Temperature: 36.8 (C ) / 98.2 (F) Weight: 153 lbs 04/30/2012 Blood Pressure 1: 116/70 Code: 8480-6 BMI: 28.8 Code: 67381-6 Heart Rate 1: 84 bpm Height: 5'2" Respiratory Rate: 20 bpm Temperature: 36.7 (C ) / 98.1 (F) Weight: 155 lbs 02/18/2012 Blood Pressure 1: 118/64 Code: 8480-6 BMI: 28.4 Code: 33152-8 Heart Rate 1: 68 bpm Height: 5'2" Temperature: 36.3 (C ) / 97.4 (F) Weight: 153 lbs 01/08/2012 Blood Pressure 1: 132/80 Code: 8480-6 BMI: 28.8 Code: 55451-4 Heart Rate 1: 76 bpm Height: 5'2" Respiratory Rate: 20 bpm Temperature: 36.7 (C ) / 98.1 (F) Weight: 155 lbs 10/19/2011 Blood Pressure 1: 102/72 Code: 8480-6 BMI: 27.9 Code: 43936-7 Heart Rate 1: 70 bpm Height: 5'2" Temperature: 36.9 (C ) / 98.5 (F) Weight: 150 lbs 09/17/2011 Blood Pressure 1: 126/72 Code: 8480-6 BMI: 28.3 Code: 13723-8 Heart Rate 1: 84 bpm Height: 5'2" Respiratory Rate: 20 bpm Temperature: 36.7 (C ) / 98.1 (F) Weight: 152 lbs 07/05/2011 Blood Pressure 1: 102/68 Code: 8480-6 Heart Rate 1: 88 bpm Temperature: 36.7 (C) / 98.1 (F) Weight: 145 lbs 05/31/2011 Blood Pressure 1: 126/82 Code: 8480-6 BMI: 27.3 Code: 60484-6 Heart Rate 1: 80 bpm Height: 5'2" [...] Weight: 130 lbs 01/02/2010 BMI: 25.7 Code: 19354-9 Heart Rate 1: 84 bpm Height: 5'2" [...] Encounters Encounter Performer Loca tion Codes Date ([id number]) OFFICE/OUTPA TIENT VISIT EST Diagnosis: Low back pain[ICD10: M54.5] Diagnosis: Personal history of urinary (tract) infections[ICD10: Z87.440] Nikole Gabriel ALMAZ ENRIQUEZ [employer] CPT-4: 38687 05/25/2019 ([id number]) OFFICE/OUTPA TIENT VISIT EST Diagnosis: Palpitations[ICD10: R00.2] Almaz ENRIQUEZ [employer] CPT-4: 88870 05/06/2019 OFFICE/OUTPATIENT SIT EST Diagnosis: Other infective otitis externa, right ear[ICD10: H60.391] Diagnosis: Acute serous otitis media, recurrent, right ear[ICD10: H65.04] Elisha ENRIQUEZ [employer] CPT-4: 36020 12/16/2018 ([id number]) NURSE/OUTPAT IENT VISIT EST Diagnosis: Dysuria[ICD10: R30.0] Almaz ENRIQUEZ [employer] CPT-4: 23849 12/02/2018 ([id number]) OFFICE/OUTPA TIENT VISIT EST Diagnosis: Palpitations[ICD10: R00.2] Diagnosis: Abnormal results of thyroid function studies[ICD10: R94.6] Almaz ENRIQUEZ [facility] CPT-4: 02089 09/09/2018 ([id number]) OFFICE/OUTPA TIENT VISIT EST Diagnosis: Pain in right knee[ICD10: M25.561] Almaz OWEN [facility] CPT-4: 70376 08/28/2018 ([id number]) OFFICE/OUTPA TIENT VISIT EST Diagnosis: Gastro-esophageal reflux disease without esophagitis[ICD10: K21.9] Almaz ENRIQUEZ [facility] CPT-4: 11690 08/18/2018 ([id number]) OFFICE/OUTPA TIENT VISIT EST Diagnosis: Other polyuria[ICD10: R35.8] Almaz ENRIQUEZ [facility] CPT-4: 20599 10/21/2017 ([id number]) OFFICE/OUTPA TIENT VISIT EST Diagnosis: Otalgia, left ear[ICD10: H92.02] Diagnosis: Left temporomandibular joint disorder, unspecified[ICD10: M26.602] Almaz ENRIQUEZ [facility] CPT-4: 38054 06/24/2017 OFFICE/OUTPATIENT SIT EST Diagnosis: Insect bite (nonvenomous) of right upper arm, sequela[ICD10: S40.861S] Almaz ENRIQUEZ [facility] CPT-4: 84086 04/11/2017 ([id number]) OFFICE/OUTPA TIENT VISIT EST Diagnosis: Other seasonal allergic rhinitis[ICD10: J30.2] Aracelis Mercado ALMAZ ENRIQUEZ [facility] CPT-4: 50409 01/18/2017 ([id number]) OFFICE/OUTPA TIENT VISIT EST Diagnosis: Abnormal weight gain[ICD10: R63.5] Diagnosis: Tinea corporis[ICD10: B35.4] Almaz ENRIQUEZ DO [facility] CPT-4: 35475 11/26/2016 ([id number]) OFFICE/OUTPA TIENT VISIT EST Diagnosis: Abnormal weight gain[ICD10: R63.5] Almaz OWEN DO [facility] CPT-4: 65678 08/23/2016 ([id number]) OFFICE/OUTPA TIENT VISIT EST Diagnosis: Pain in left knee[ICD10: M25.562] Aracelis Mercado ALMAZ ENRIQUEZ DO [facility] CPT-4: 91061 06/14/2016 OFFICE/OUTPATIENT SIT EST Diagnosis: Other specified disorders of Eustachian tube, left ear[ICD10: H69.82] Radha ENRIQUEZ DO [facility] CPT-4: 74313 04/19/2016 ([id number]) OFFICE/OUTPA TIENT VISIT EST Diagnosis: Other specified disorders of Eustachian tube, bilateral[ICD10: H69.83] Diagnosis: Otitis media, unspecified, right ear[ICD10: H66.91] Aracelis Mercado ALMAZ ENRIQUEZ DO [facility] CPT-4: 94871 04/10/2016 OFFICE/OUTPATIENT SIT EST Diagnosis: Acute pharyngitis, unspecified[ICD10: J02.9] Radha ARROYO DO [facility] CPT-4: 81984 11/22/2015 ([id number]) OFFICE/OUTPA TIENT VISIT EST Diagnosis: Encounter for general adult medical examination without abnormal findings[ICD10: Z00.00] Almaz ENRIQUEZ DO [facility] CPT-4: 21431 10/03/2015 ([id number]) OFFICE/OUTPA TIENT VISIT EST Diagnosis: Myalgia[ICD10: M79.1] Diagnosis: Unspecified abdominal pain[ICD10: R10.9] Almaz OWEN DO [facility] CPT-4: 55904 08/01/2015 ([id number]) OFFICE/OUTPA TIENT VISIT EST Diagnosis: Proctalgia[ICD9: 569.42] Diagnosis: Rectal bleeding[ICD9: 569.3] [facility] CPT-4: 14921 06/28/2015 ([id number]) OFFICE/OUTPA TIENT VISIT EST Diagnosis: Right calf pain[ICD9: 729.5] Za Jenn ALMAZ ENRIQUEZ DO [facility] CPT-4: 11001 05/02/2015 ([id number]) OFFICE/OUTPA TIENT VISIT EST Diagnosis: Flank pain[ICD9: 789.00] Diagnosis: MALAISE AND FATIGUE[ICD9: 780.79] Diagnosis: ABNORMAL WEIGHT GAIN[ICD9: 783.1] Almaz OWEN [facility] CPT-4: 63080 03/29/2015 ([id number]) OFFICE/OUTPA TIENT VISIT EST Diagnosis: ALLERGIC RHINITIS[ICD9: 477.9] Almaz ENRIQUEZ [facility] CPT-4: 47617 02/15/2015 ([id number]) OFFICE/OUTPA TIENT VISIT EST Diagnosis: GERD[ICD9: 530.81] Almaz ENRIQUEZ [facility] CPT-4: 91786 12/30/2014 ([id number]) OFFICE/OUTPA TIENT VISIT EST Diagnosis: Tenosynovitis, de Quervain[ICD9: 727.04] Diagnosis: Paresthesia of hand[ICD9: 782.0] Almaz ENRIQUEZ [facility] CPT-4: 99360 09/30/2014 ([id number]) OFFICE/OUTPA TIENT VISIT EST Diagnosis: ABDOMINAL PAIN[ICD9: 789.00] Diagnosis: GERD[ICD9: 530.81] Diagnosis: TREMOR NEC[ICD9: 333.1] Almaz ENRIQUEZ DO [facility] CPT-4: 84555 07/19/2014 ([id number]) OFFICE/OUTPA TIENT VISIT EST Diagnosis: PAIN, LOWER BACK[ICD9: 724.2] Diagnosis: SPASM OF MUSCLE[ICD9: 728.85] Almaz ENRIQUEZ [facility] CPT-4: 86105 06/01/2014 OFFICE/OUTPATIENT SIT EST Diagnosis: TONSILLITIS, ACUTE[ICD9: 463] Diagnosis: STREPTOCOCCAL INFECTION GROUP A[ICD9: 041.01] Radha MAGANALINE S. O RENDER [facility] CPT-4: 42044 12/25/2013 OFFICE/OUTPATIENT SIT EST Diagnosis: DYSURIA[ICD9: 788.1] Radha WU S. LUCIEN [facility] CPT-4: 62784 12/17/2013 ([id number]) OFFICE/OUTPA TIENT VISIT EST Diagnosis: BRONCHITIS, ACUTE[ICD9: 466.0] Almaz Nathanlevielvi [facility]MAZ Blanche. [facility] C[facility]: 29970 09/15/2013 OFFICE/OUTPATIENT SIT EST Diagnosis: URI, ACUTE[ICD9: 465.9] Za Price [facility] CPT-4: 27014 08/14/2013 ([id number]) OFFICE/OUTPA TIENT VISIT EST Diagnosis: PALPITATIONS[ICD9: 785.1] Almaz Nathanpreeti CALDERAALMAZ BlancheKaz [facility] CPT-4: 91293 08/03/2013 OFFICE/OUTPATIENT SIT EST Diagnosis: SINUSITIS, ACUTE[ICD9: 461.9] Diagnosis: Dysfunction of left Eustachian tube[ICD9: 381.81] Radha MAGANALINE S. O RENDER [facility] CPT-4: 03340 07/21/2013 OFFICE/OUTPATIENT SIT EST Diagnosis: Vaginal disorder[ICD9: 623.9] Za Price [facility] CPT-4: 24206 06/12/2013 OFFICE/OUTPATIENT SIT EST Diagnosis: HYPOGLYCEMIA NEC[ICD9: 251.1] Diagnosis: GERD[ICD9: 530.81] Almaz Nathanlevielvi ALMAZ BlancheKaz [facility] CPT-4: 96196 12/25/2012 OFFICE/OUTPATIENT SIT EST Diagnosis: COUGH[ICD9: 786.2] Diagnosis: PHARYNGITIS, ACUTE[ICD9: 462] Almaz Nathanlevielvi ALMAZ SKaz [facility] CPT-4: 10483 10/30/2012 OFFICE/OUTPATIENT SIT EST Diagnosis: HYPOGLYCEMIA[ICD9: 251.2] Diagnosis: GERD[ICD9: 530.81] Diagnosis: Fibroid tumor[ICD9: 218.9] Almaz ENRIQUEZ DO [facility] CPT-4: 12224 08/28/2012 ([id number]) OFFICE/OUTPA TIENT VISIT EST Diagnosis: Hyperglycemia[ICD9: 790.29] Almaz ENRIQUEZ DO [facility] CPT-4: 85708 08/27/2012 ([id number]) OFFICE/OUTPA TIENT VISIT EST Diagnosis: GERD[ICD9: 530.81] Almaz ENRIQUEZ DO [facility] CPT-4: 68916 05/27/2012 ([id number]) OFFICE/OUTPA TIENT VISIT EST Diagnosis: HYPOGLYCEMIA NEC[ICD9: 251.1] Diagnosis: GERD[ICD9: 530.81] Almaz ENRIQUEZ DO [facility] CPT-4: 12884 04/30/2012 ([id number]) OFFICE/OUTPA TIENT VISIT EST Diagnosis: HYPOGLYCEMIA[ICD9: 251.2] Almaz ENRIQUEZ [facility] CPT-4: 00508 04/29/2012 OFFICE/OUTPATIENT SIT EST Diagnosis: CONJUNCTIVITIS NOS[ICD9: 372.30] Almaz ENRIQUEZ [facility] CPT-4: 11741 02/18/2012 OFFICE/OUTPATIENT SIT EST Diagnosis: Hyperinsulinemia[ICD9: 251.1] Diagnosis: HYPOGLYCEMIA[ICD9: 251.2] Almaz ENRIQUEZ [facility] CPT-4: 35111 01/08/2012 ([id number]) OFFICE/OUTPA TIENT VISIT EST Diagnosis: Leg cramps[ICD9: 729.82] Almaz ENRIQUEZ DO [facility] CPT-4: 18149 12/25/2011 OFFICE/OUTPATIENT SIT EST Diagnosis: PHARYNGITIS, ACUTE[ICD9: 462] Almaz ENRIQUEZ DO [facility] CPT-4: 59213 10/19/2011 OFFICE/OUTPATIENT SIT EST Diagnosis: Pyelonephritis[ICD9: 590.80] Diagnosis: Flank pain[ICD9: 789.00] Diagnosis: Recurrent UTI[ICD9: 599.0] Diagnosis: Thoracic back pain[ICD9: 724.1] Almaz ENRIQUEZ DO [facility] CPT-4: 75556 09/17/2011 OFFICE/OUTPATIENT SIT EST Diagnosis: PHARYNGITIS, ACUTE[ICD9: 462] Almaz ENRIQUEZ DO [facility] CPT-4: 78886 07/05/2011 OFFICE/OUTPATIENT SIT EST Diagnosis: GERD[ICD9: 530.81] Diagnosis: ABDOMINAL PAIN[ICD9: 789.00] Almaz RYDERER DO [facility] CPT-4: 08924 05/31/2011 OFFICE/OUTPATIENT SIT EST Almaz NEWBERRY NDER DO [facility] CPT-4: 69373 04/11/2011 ([id number]) OFFICE/OUTPA TIENT VISIT EST Almaz NWEBERRY NDER DO [facility] CPT-4: 00875 03/13/2011 ([id number]) OFFICE/OUTPA TIENT VISIT EST Almaz NEWBERRY NDER DO [facility] CPT-4: 37477 11/30/2010 ([id number]) OFFICE/OUTPA TIENT VISIT, EST Almaz NEWBERRY NDER DO [facility] CPT-4: 43023 11/02/2010 ([id number]) OFFICE/OUTPA TIENT VISIT, EST Lucy Demetris ALMAZ NEWBERRYNDER DO [facility] CPT-4: 42092 07/25/2010 ([id number]) OFFICE/OUTPA TIENT VISIT, EST Almaz NEWBERRY NDER DO [facility] CPT-4: 75603 01/02/2010 Plan of Care Planned Activity Notes C odes Status Date Visit Diagnosis Plan: Low back pain Discussion: urine dip neg. will send for culture. bactrim bid for 7 days to cover for infection due to patient's hx. instructed to push water. call office if no improvement tomorrow or to ED with worsening. ICD-9 : 724.2 ICD-10 : M54.5 05/25/2019 Visit Diagnosis Plan: Palpitations D iscussion: Check CBC, iron, ferritin, TSH, Free T4, CMP Check 24hr holter Denies any energy drinks, supplements, etc. To ER if come on and persist with any associated dyspnea, dizziness, CP, etc. ICD-9 : 785.1 ICD-10 : R00.2 05/06/2019 Appointment: Almaz Enriquez WPtel: [facility] [address] ACUTE ILLNESS 05/06/2019 Visit Diagnosis Plan: [...] ICD-10 : H65.04 12/16/2018 Appointment: Elisha Leiva [address] [place] [address] ACUTE ILLNESS 12/16/2018 Patient Education: amoxicillin- [employer] Coupon [phone] [email or web address] Completed 12/16/2018 Appointment: Almaz Enriquez WPtel: [facility] [facility] 12/02/2018 Visit Diagnosis Plan: Palpitations D iscussion: [...] : R94.6 09/09/2018 Appointment: Almaz Enriquez WPtel: [address] [place] [address] Hospital Follow Up 09/09/2018 Visit Diagnosis Plan: Pain in right knee Discussion: Referral to Dr. Pako Lowry and topical voltaren ICD-9 : 719.46 ICD-10 : M25.561 08/28/2018 Appointment: Almaz Enriquez WPtel: [address] [place] [address] ACUTE ILLNESS 08/28/2018 Care Plan: Referral Order SNOMED-CT : [id number] Pending 08/28/2018 Visit Diagnosis Plan: Gastro-esophageal reflux disease without esophagitis Discussion: Left lower chest pain appear s to be from GI etiology so will resume protonix 40mg po BID for next week and see if resolves, if improved then can go to protonix 40mg po daily ICD-9 : 530.81 ICD-10 : K21.9 08/18/2018 Appointment: Nikole Gabriel [address] [place] [address] ACUTE ILLNESS 08/18/2018 Patient Education: Patient Medication Summary Completed 05/13/2018 Care Plan: MAMMOGRAM SCREENING [facility] : 13599-9 Pending 05/13/2018 Appointment: Almaz Enriquez WPtel: [address] [place] [address] UA 10/21/2017 Patient Education: Patient Medication Summary [...] H92.02 06/24/2017 Appointment: Almaz Enriquez WPtel: [address] [place], [place] [phone] ACUTE ILLNESS 06/24/2017 Patient Education: Patient Medication Summary Completed 06/24/2017 Patient Education: Patient Medication Summary Completed 05/14/2017 Visit Diagnosis Plan: Insect bite (nonve nomous) of right upper arm, sequela Discussion: Finish all abx Add Zyrtec 10 mg daily for 10 days ICD-9 : 906.2 ICD-10 : S40.861S 04/11/2017 Appointment: Almaz Enriquez WPtel: [address] [place], [place] [phone] ER Follow UP 04/11/2017 Patient Education: Patient Medication Summary Completed 04/11/2017 Visit Diagnosis Plan: Other seasonal allergic rhinitis Discussion: Add benadryl at bedtime Nasal rinses, steroid nasal spray Vicks and humidifier Monitor for signs of infection Follow up PRN ICD-9 : 477.9 ICD-10 : J30.2 01/18/2017 Appointment: Aracelis Mercado [address] [place], [place] [phone] ACUTE ILLNESS 01/18/2017 Patient Education: Patient Medication Summary Completed 01/18/2017 Visit Diagnosis Plan: Tinea corporis Discussion: Ketoconazole BID for 2 weeks Notify if persist or worsens ICD-9 : 110.5 ICD-10 : B35.4 11/26/2016 Visit Diagnosis Plan: Abnormal weight gain Discussion: Long discussion about diet/exercise/lifestyle change--3month trial ICD-9 : 783.1 ICD-10 : R63.5 11/26/2016 Appointment: Almaz Enriquez WPtel: [address] [place], [place] [phone] 11/22 confirm~sl FOLLOW UP 11/26/2016 Patient Education: Patient Medication Summary Completed 11/26/2016 Appointment: Almaz Enriquez WPtel: [address] [place], [place] [phone] [place] WT CHECK 10/25/2016 Patient Education: Patient Medication Summary Completed 10/25/2016 Appointment: Almaz Enriquez WPtel: [address] [place] [address] BP CHECK 09/21/2016 Patient Education: Patient Medication Summary Completed 09/21/2016 Visit Plan: Is working out routinel y Will do phenteramine 37.5mg Weight and BP check next 2 months then fwup in 3mos 08/23/2016 Appointment: Almaz Enriquez WPtel: [address] [place] [address] 08/22 confirmed~sl FOLLOW UP 08/23/2016 Patient Education: Patient Medication Summary Completed 08/23/2016 Patient Education: Patient Medication Summary Completed 06/22/2016 Care Plan: [facility] Pending 06/22/2016 Visit Plan: RICE and rx [...] for xray orders 06/14/2016 Appointment: Aracelis Mercado [address] [place] [address] ACUTE ILLNESS 06/14/2016 Patient Education: Patient Medication Summary Completed 06/14/2016 Referral: Jatinder Ambrose WPtel: [address] [place] [address] Referral Appointment Requested 05/09/2016 Visit Plan: Attempted to use ET pop per with minimal relief Fluticasone nasal spray - 2 sprays each nostril one time daily 04/19/2016 Visit Plan: Attempted to use ET pop per with minimal relief Fluticasone nasal spray - 2 sprays each nostril one time daily 04/19/2016 Appointment: Radha Botello WPtel: [address] [place] [address] 04/18 confirmed~sl ACUTE ILLNESS 04/19/2016 Patient Education: [...] Follow up PRN 04/10/2016 Appointment: Aracelis Mercado [address] [place] [address] ACUTE ILLNESS 04/10/2016 Patient Education: Patient Medication Summary Completed 04/10/2016 Visit Plan: Strep Screen - negative Recommending warm saline gargles and notify if symptoms worsen 11/22/2015 Visit Plan: Strep Screen - negative Recommending warm saline gargles and notify if symptoms worsen 11/22/2015 Visit Plan: Strep Screen - negative Recommending warm saline gargles and notify if symptoms worsen 11/22/2015 Appointment: Radha Botello WPtel: [address] [place], [place] [phone] ACUTE ILLNESS 11/22/2015 Patient Education: Patient Medication Summary Completed 11/22/2015 Appointment: Almaz Enriquez WPtel: [address] [place], [place] [phone] [facility] 10/03/2015 Patient Education: Patient Medication Summary Completed 10/03/2015 Appointment: Almaz Enriquez WPtel: [address] [place], [place] [phone] [facility] 08/01/2015 Patient Education: Patient Medication Summary Completed 08/01/2015 Visit Plan: Anusol HC supp for 2wee ks Align daily for 2weeks If resolves then will observe as came on after recent GI bug but if persists or comes back will need colonoscopy 06/28/2015 Appointment: Almaz Enriquez WPtel: [address] [place] [address] ACUTE ILLNESS 06/28/2015 Patient Education: Patient Medication Summary Completed 06/28/2015 Appointment: Almaz Enriquez WPtel: [address] [place] [address] 05/27 cn FOLLOW UP 05/30/2015 Appointment: Almaz Enriquez WPtel: [address] [place] [address] ACUTE ILLNESS 05/16/2015 Visit Plan: Venous dopple of right leg ordered (tomorrow 10am) Recommended daily EC ASA until results 05/02/2015 Visit Plan: Venous dopple of right leg ordered (tomorrow 10am) Recommended daily EC ASA until results 05/02/2015 Appointment: Za Barajas WPtel: [address] [place] [address] ACUTE ILLNESS 05/02/2015 Patient Education: Patient Medication Summary Completed 05/02/2015 Visit Plan: Contrave starter pack F wup in 2mos 03/29/2015 Appointment: Almaz Enriquez WPtel: [address] [place] [address] ER Follow UP 03/29/2015 Patient Education: Patient Medication Summary Completed 03/29/2015 Visit Plan: Start Loratadine 10mg p o BID Add flonase q HS 02/15/2015 Appointment: Almaz Enriquez WPtel: [address] [place] [address] ACUTE ILLNESS 02/15/2015 Patient Education: Patient Medication Summary Completed 02/15/2015 Visit Plan: Continue protonix and c arafate See GI for update EGD vs pH probe/etc. Discussed musculoskeletal etiology as well as patient does have some chest wall pain and thoracic pain 12/30/2014 Appointment: Almaz Enriquez WPtel: [address] [place], [place] [phone] ER Follow UP 12/30/2014 Patient Education: Patient Medication Summary Completed 12/30/2014 Referral: Garo Reddy [facility]Ptel: [address] [id number] - Dr Reddy office verifies ins they s chedule with patient directly 10/20/14 Per Patient - she cannot go to this consult because due to her work comp case she must see their preferred dr. Completed 10/12/2014 Visit Plan: Continue wrist splint C heck EMG of RUE Start Vimovo once daily 09/30/2014 Appointment: Almaz Enriquez WPtel: [address] [place], [place] [phone] ER Follow UP 09/30/2014 Patient Education: Patient Medication Summary Completed 09/30/2014 Visit Plan: List reglan as an aller gy--tremor of thumb has improved since stopping Add carafate to protonix for next 2-4weeks If resolves will observe, if not will need updated EGD 07/19/2014 Appointment: Almaz Enriquez WPtel: [address] [place], [place] [phone] 07/16 also left message that payment is due ER Follow UP 4 Patient Education: Patient Medication Summary Completed 07/19/2014 Visit Plan: Stretches, moist heat, topical biofreeze Amrix 15mg q PM Celebrex 200mg po BID 06/01/2014 Appointment: Almaz Enriquez WPtel: [address] [place], [place] [phone] Patient will bring in/call in $50.00 pay ment on 06/08-LB ACUTE ILLNESS 06/01/20 14 Patient Education: Patient Medication Summary Completed 06/01/2014 Visit Plan: Complete antibiotics Ch jacqueline toothbrush 1/2 way through coarse of antibiotics 12/25/2013 Appointment: Radha Botellol: [address] [place], [place] [phone] US was in ER on 12/19/13 ACUTE ILLNESS 12/25/2013 Patient Education: Patient Medication Summary Completed 12/25/2013 Visit Plan: Follow up if symptoms w orsen Call if begins to have symptoms of vaginal yeast and will call out diflucan Recommended topical hydrocortisone cream for symptoms 12/17/2013 Appointment: Radha Botello WPtel: [address] [place], [place] [phone] ACUTE ILLNESS 12/17/2013 Patient Education: Patient Medication Summary Completed 12/17/2013 Visit Plan: Supportive care. Rest, Fluids, Tylenol/Motrin prn fever or bodyaches. Notify if worsening symptoms. Zitthromax 500mg daily for 1wk Tussionex 09/15/2013 Appointment: Almaz Enriquez WPtel: [address] [place], [place] [phone] ACUTE ILLNESS 09/15/2013 Patient Education: Patient Medication Summary Completed 09/15/2013 Visit Plan: Samples Claritin 10mg 1 po daily #8, Nasonex 2 sprays each nostril daily (1 sample) Nasal saline Tylenol/Ibuprofen Rest/fluids Off work today. 08/14/2013 Appointment: Za Barajas WPtel: [address] [place], [place] [phone] ACUTE ILLNESS 08/14/2013 Patient Education: Patient Medication Summary Completed 08/14/2013 Visit Plan: Await holter results Av oid decongestants, caffeine Discussed likely secondary to recent illness, steroids, decongestants If persists will get ECHO 08/03/2013 Appointment: Almaz Enriquez WPtel: [address] [place], [place] [phone] ER Follow UP 08/03/2013 Patient Education: Patient Medication Summary Completed 08/03/2013 Visit Plan: Kenalog 40 mg andfDepo Medrol 40 mg Im now. Mucinex D daily. Nasonex nasal spray- 2 sprays eash nostril daily. 07/21/2013 Appointment: Radha Botello WPtel: [address] [place], [place] [phone] ACUTE ILLNESS 07/21/2013 Patient Education: Patient Medication Summary Completed 07/21/2013 Visit Plan: Flagyl 500mg 1 po bid x 7 days (with ETOH warning) Discussed d/c is much more yeast appearing, T&M obtained. Discussed that since cervix is still present (supracervical hyst) she will need routine P ap smears. Call if no improvement by next week. 06/12/2013 Appointment: Za Barajas WPtel: [address] [place], [place] [phone] ACUTE ILLNESS 06/12/2013 Patient Education: Patient Medication Summary Completed 06/12/2013 Visit Plan: Continue carafate once daily Check Chem 7, Insulin level today 12/25/2012 Appointment: Almaz Enriquez WPtel: [address] [place], [place] [phone] FOLLOW UP 12/25/2012 Patient Education: Patient Medication Summary Completed 12/25/2012 Visit Plan: Azithromycin and codein e/guiaf cough syrup. 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 Discussed notifying if symptoms worsen or persist. Fluids and comfort care. 10/30/2012 Appointment: uLcy Willson WPtel: [address] [place], [place] [phone] ACUTE ILLNESS 10/30/2012 Patient Education: Patient Medication Summary Completed 10/30/2012 Visit Plan: Continue metformin and all other meds Pt going for surgery for hysterectomy 08/28/2012 Appointment: Almaz Enriquez WPtel: [address] [place], [place] [phone] FOLLOW UP 08/28/2012 Patient Education: Patient Medication Summary Completed 08/28/2012 Appointment: Almaz Enriquez WPtel: [address] [place], [place] [id number] LAB 08/27/2012 Patient Education: Patient Medication Summary Completed 08/27/2012 Visit Plan: Continue carafate and p rotonix Proceed with EGD 05/27/2012 Appointment: Almaz Enriquez WPtel: [address] [place] [address] Follow Up 05/27/2012 Patient Education: Patient Medication Summary Completed 05/27/2012 Visit Plan: Continue metformin and accuchecks Restart Dexilant Check insulin level with CMP in 4mos 04/30/2012 Appointment: Almaz Enriquez WPtel: [address] [place], [place] [id number] FOLLOW [facility] 04/30/2012 Patient Education: Patient Medication Summary Completed 04/30/2012 Appointment: Almaz Enriquez WPtel: [address] [place] [address] LAB 04/29/2012 Patient Education: Patient Medication Summary Completed 04/29/2012 Visit Plan: Pt. reports both of her children have experienced pink eye recently and were successfully treated with Tobramycin. Pt. is given written RX for Polymyxin B opthalmic drops. Recommend follow up with Dr. Beltre. Discussed precautions to prevent spread. 02/18/2012 Appointment: Lucy Willson WPtel: [address] [place] [address] ACUTE ILLNESS 02/18/2012 Patient Education: Patient Medication Summary Completed 02/18/2012 Visit Plan: Long discussion about d iet and exercise and eating 6 manny meals a day with protein Add daily metformin 250mg Restart MV with iron Glucometer to use prn 01/08/2012 Appointment: Almaz Enriquez WPtel: [address] [place] [address] FOLLOW UP 01/08/2012 Patient Education: Patient Medication Summary Completed 01/08/2012 Appointment: Almaz Enriquez WPtel: [address] [place], [place] [id number] LAB 12/25/2011 Patient Education: Patient Medication Summary Completed 12/25/2011 Visit Plan: amoxicillin. Discussed comfort care and cold/icy fluids. Tylenol/motrin for pain. Pt. will notify if fever or worsening symptoms. Discussed completion of antibiotic regimen 10/19/2011 Appointment: Lucy Willson WPtel: [address] [place] [address] ACUTE ILLNESS 10/19/2011 Patient Education: Patient Medication Summary Completed 10/19/2011 Visit Plan: Finish omnicef then sta rt daily cipro Toradol given then sprix prn for 5 days for pain See urology due to recurrence of UTIs 09/17/2011 Appointment: Almaz Enriquez WPtel: [address] [place] [address] Hospital Follow Up 09/17/2011 Patient Education: Patient Medication Summary Completed 09/17/2011 Visit Plan: New toothebrush in 5 da ysSaline nasal flushes prn. Tylenol/Motrin prn headache. Notify if persists/symptoms worsening. 07/05/2011 Appointment: Almaz Enriquez WPtel: [address] [place] [address] ACUTE ILLNESS 07/05/2011 Patient Education: Patient Medication Summary Completed 07/05/2011 Visit Plan: Continue Protonix Add D exilant 60mg q HS Check CMP, CBC, Lipase 05/31/2011 Appointment: Almaz Enriquez WPtel: [address] [place] [address] ACUTE ILLNESS 05/31/2011 Patient Education: Patient Medication Summary Completed 05/31/2011 Visit Plan: No caffeine, no nicotin e, no mints, no late meals, elevate HOB 30 degrees Restart Protonix 04/11/2011 Appointment: Almaz Enriquez WPtel: [address] [place] [address] ACUTE ILLNESS 04/11/2011 Patient Education: Patient Medication Summary Completed 04/11/2011 Visit Plan: pt. will take Cefuroxim e axetil. Will notify if symptoms worsen. 03/13/2011 Appointment: Lucy Willson WPtel: [address] [place] [address] ACUTE ILLNESS 03/13/2011 Patient Education: Patient Medication Summary Completed 03/13/2011 Visit Plan: Continue brace for 2-4 more weeks May exercise to point of discomfort then stop 11/30/2010 Appointment: Almaz Enriquez WPtel: [address] [place] [address] FOLLOW UP 11/30/2010 Patient Education: Patient Medication Summary Completed 11/30/2010 Visit Plan: Continue aircast and ad d Vimovo po BID 11/02/2010 Appointment: Almaz Enriquez WPtel: [address] [place] [address] ER Follow UP 11/02/2010 Patient Education: Patient Medication Summary Completed 11/02/2010 Appointment: Almaz Enriquez WPtel: [address] [place] [address] UA 08/01/2010 Patient Education: Patient Medication Summary Completed 08/01/2010 Visit Plan: ER visit Jul 16 Starte d Flagyl yesterday. Should finish it on 03 of August. nasal spray. Singulair samples given. Pt will seek re-eval if symptoms worsen. Phoned in codeine/guif cough syrup. ([facility]) 07/25/2010 Appointment: Lucy Willson WPtel: [address] [place] [address] ACUTE ILLNESS 07/25/2010 Patient Education: Patient Medication Summary Completed 07/25/2010 Visit Plan: Supportive care. Rest, Fluids, Tylenol/Motrin prn fever or bodyaches. Notify if worsening symptoms. 01/02/2010 Appointment: Almaz Enriquez WPtel: [address] [place] [address] ACUTE ILLNESS 01/02/2010 Patient Education: Patient Medication Summary Completed 01/02/2010 Referral: Cyrus Min WPtel: [address] [address] [place] Referral Appointment Requested Referral: Cyrus Min [facility]el[facility] [address] [id number] [place] Referral Initiated Referral: Terrence Mehta WPtel: [id number] [address] Mehta will review and call patien to schedule Completed Referral: Judy Prasad [facility]el[facility] [address] [facility] [id number] [place] Referral Initiated Instructions Comment . Is working out ida pratima Will do phenteramine 37.5mg Weight and BP check next 2 months then fwup in 3mos . New toothebrush i n 5 daysSaline nasal flushes prn. Tylenol/Motrin prn headache. Notify if persists/symptoms worsening. . Supportive care. Rest, Fluids, Tylenol/Motrin prn fever or bodyaches. Notify if worsening symptoms. . Supportive care. Rest, Fluids, Tylenol/Motrin prn fever or bodyaches. Notify if worsening symptoms. Zitthromax 500mg daily for 1wk Tussionex . Stretches, moist h eat, topical biofreeze Amrix 15mg q PM Celebrex 200mg po BID . Long discussion ab out diet and exercise and eating 6 manny meals a day with protein Add daily metformin 250mg Restart MV with iron Glucometer to use prn . Continue wrist spl int Check EMG of RUE Start Vimovo once daily . List reglan as an allergy--tremor of thumb has improved since stopping Add carafate to protonix for next 2-4weeks If resolves will observe, if not will need updated EGD . pt. will take Cefu roxime axetil. Will notify if symptoms worsen. . Kenalog 40 mg andf Depo Medrol 40 mg Im now. Mucinex D daily. Nasonex nasal spray- 2 sprays eash nostril daily. . Venous dopple of r ight leg ordered (tomorrow 10am) Recommended daily EC ASA until results . Venous dopple of r ight leg ordered (tomorrow 10am) Recommended daily EC ASA until results . Samples Claritin 1 0mg 1 po daily #8, Nasonex 2 sprays each nostril daily (1 sample) Nasal saline Tylenol/Ibuprofen Rest/fluids Off work today. . Anusol HC supp for 2weeks Align daily for 2weeks If resolves then will observe as came on after recent GI bug but if persists or comes back will need colonoscopy . Contrave starter p ack Fwup in 2mos . Finish omnicef the n start daily cipro Toradol given then sprix prn for 5 days for pain See urology due to recurrence of UTIs . Follow up if sympt oms worsen Call if begins to have symptoms of vaginal yeast and will call out diflucan Recommended topical hydrocortisone cream for symptoms . amoxicillin. Discu ssed comfort care and [...] with antibiotic use Follow up PRN . Complete antibioti cs Change toothbrush 1/2 way through coarse of antibiotics . Continue aircast a nd add Vimovo [...] Phoned in codeine/guif cough syrup. ([facility]) . Flagyl 500mg 1 po bid x 7 days (with ETOH warning) Discussed d/c is much more yeast appearing, T&M obtained. Discussed that since cervix is still present (supracervical hyst) she will need routine Pap smears. Call if no improvement by next week. . Continue metformin and accuchecks Restart Dexilant Check insulin level with CMP in 4mos . Continue protonix and carafate See GI for update EGD vs pH probe/etc. Discussed musculoskeletal etiology as well as patient does have some chest wall pain and thoracic pain . Continue carafate and protonix Proceed with EGD . Continue carafate once daily Check Chem 7, Insulin level today . Azithromycin and c odeine/guiaf cough syrup. 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
--- OUTSIDE RECORDS SUMMARY | 2020-04-20 21:10 | XMS REPORT | CCD ---
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..] DS 800 mg-16 0 mg tablet RxNorm: 987808 1 Tablet(s) PO BID 05/25/2019 05/31/2019 Active pzqoevew-hvjjydmij-x ydrocort 3.5 mg/mL-10,000 unit/mL-1 % ear solution RxNorm: 548910 4 Drop(s) otic (ear) TID 12/17/2018 12/16/2018 Inactive qksaepep-tbiiwnxxo-w ydrocort 3.5 mg/mL-10,000 unit/mL-1 % ear solution RxNorm: 548577 4 Drop(s) otic (ear) TID 12/17/2018 12/23/2018 Inactive right ear ofloxacin 0.3 % ear drops RxNorm: 649382 5 Drop(s) otic (ear) BID 12/16/2018 12/16/2018 Inactive right ear amoxicillin 875 mg t ablet RxNorm: 077236 1 Tablet(s) PO BID 12/16/2018 12/25/2018 Inactive Diflucan 200 mg tablet RxNorm: 437091 1 Tablet(s) PO Q72H 12/16/2018 01/04/2019 Inactive Bactrim DS 800 mg-16 0 mg tablet RxNorm: 526697 1 Tablet(s) PO BID 12/02/2018 12/01/2018 Inactive Bactrim DS 800 mg-16 0 mg tablet RxNorm: 232693 1 Tablet(s) PO BID 12/02/2018 12/08/2018 Inactive Protonix 40 mg table t,delayed release RxNorm: 001306 1 Tablet(s) PO QD 09/23/2018 12/21/2018 In active Protonix 40 mg table t,delayed release RxNorm: 302429 1 Tablet(s) PO BID 09/18/2018 09/22/2018 In active Voltaren 1 % topical gel RxNorm: 697395 2 Gram(s) TOP QID to right knee 08/28/2018 05/05/2019 In active Diflucan 150 mg tablet RxNorm: 400313 1 Tablet(s) PO Q72H Take one tablet toda y and repeat in 3 days if no improvement. 10/23/2017 08/17/2018 Inactive Diflucan 150 mg tablet RxNorm: 240131 1 Tablet(s) PO Q72H Take one tablet toda y and repeat in 3 days if no improvement. 10/04/2017 10/22/2017 Inactive ofloxacin 0.3 % ear drops RxNorm: 428602 4 Drop(s) OTIC TID fo r 1 week 06/24/2017 08/17/2018 In active Medrol (Scar) 4 mg ta blets in a dose pack RxNorm: 428207 Take as directed 01/18/2017 04/10/2017 In active ketoconazole 2 % top ical cream RxNorm: 777421 Application TOP BID t o lesion x 2 weeks 11/26/2016 01/17/2017 Inactive Protonix 40 mg table t,delayed release RxNorm: 099465 1 TABLET(S) PO QD 10/13/2016 05/05/2019 In active phentermine 37.5 mg tablet RxNorm: 268687 1 Tablet(s) PO QAM 08/23/2016 11/25/2016 Inactive Medrol (Scar) 4 mg ta blets in a dose pack RxNorm: 484353 Take as directed 06/14/2016 08/22/2016 In active Diflucan 150 mg tablet RxNorm: 452188 1 Tablet(s) PO QD . May repeat in 2-3 da ys if needed. 04/10/2016 04/11/2016 Inactive amoxicillin 875 mg t ablet RxNorm: 227215 1 Tablet(s) PO BID 04/10/2016 04/18/2016 Inactive Medrol (Scar) 4 mg ta blets in a dose pack RxNorm: 450847 Take as directed 04/10/2016 04/18/2016 In active Anusol-HC 25 mg supp ository RxNorm: 5678588 1 Suppository RTL BID 06/28/2015 07/11/2015 Inactive Protonix 40 mg table t,delayed release RxNorm: 198736 1 Tablet(s) PO QD 04/27/2015 10/23/2015 In active Contrave 8 mg-90 mg tablet,extended release RxNorm: 7708148 1 Tablet(s) PO QAM f or 1 week then 1 po BID for 1week then 1 in AM and 2 in PM for 1week then 2 po BID 03/29/2015 06/27/2015 Inactive [SAVINGS FOR UNINSURED PATIENTS -- BIN:[id number], PCN: [id number], Group: [id number], ID# [id number], Process claim through [employer], for questions: . THIS IS NOT INSURANCE.] Flonase Allergy Reli ef 50 mcg/actuation nasal spray,suspension RxNorm: 2 [place] NASAL QHS 02/15/2015 03/28/2015 Inactive Carafate 1 gram tablet RxNorm: 967681 1 Tablet(s) PO AC & HS 12/30/2014 06/13/2016 Inactive Diflucan 100 mg tablet RxNorm: 682789 1 Tablet(s) PO QD 09/30/2014 10/06/2014 Inactive metformin ER 500 mg tablet,extended release 24hr RxNorm: 902161 1/2 Tablet(s) PO QD 09/15/2014 12/29/2014 In active metformin ER 500 mg tablet,extended release 24hr RxNorm: 423507 1/2 Tablet(s) PO QD 09/15/2014 09/14/2014 In active Carafate 1 gram tablet RxNorm: 545039 1 Tablet(s) PO AC & HS 07/19/2014 09/16/2014 Inactive Diflucan 100 mg tablet RxNorm: 435076 1 Tablet(s) PO QD 12/28/2013 01/03/2014 Inactive amoxicillin 875 mg t ablet RxNorm: 642543 1 Tablet(s) PO BID 12/25/2013 01/03/2014 Inactive Protonix 40 mg table t,delayed release RxNorm: 837585 1 Tablet(s) PO QD 12/03/2013 07/25/2014 In active Zithromax 250 mg tablet RxNorm: 821866 2 Tablet(s) PO QD 09/15/2013 09/21/2013 Inactive Flagyl 500 mg tablet RxNorm: 537062 1 Tablet(s) PO Q12H 06/12/2013 06/18/2013 Inactive Diflucan 100 mg tablet RxNorm: 621517 1 Tablet(s) PO QD 12/08/2012 12/14/2012 Inactive Diflucan 100 mg tablet RxNorm: 678166 1 Tablet(s) PO QD 12/08/2012 12/07/2012 Inactive azithromycin 250 mg tablet RxNorm: 774104 2 Tablet(s) PO QD ant ibiotic 10/30/2012 11/06/2012 In active Carafate 1 gram Tab RxNorm: 839699 1 Tablet(s) PO AC 05/27/2012 06/11/2013 Inactive MetroCream 0.75 % To pical RxNorm: 277203 Application TOP BID 05/27/2012 06/11/2013 Inactive to face Protonix 40 mg Tab RxNorm: 072735 1 Tablet(s) PO QD 2012 11/15/2012 Inactive Dexilant 60 mg Capsule RxNorm: 740114 1 Capsule(s) PO QD 04/30/2012 05/26/2012 Inactive metformin ER 500 mg 24 hr Tab RxNorm: 292774 1 Tablet(s) PO QAM 04/30/2012 10/29/2012 Inactive tobramycin 0.3 % Eye Drops RxNorm: 957170 1-2 Drop(s) OPH Q4H o ne to two drops in effected eye(s) every four hours for a maximum of 7 days. If no improvement in 1-2 days need eval 02/15/2012 02/19/2012 Inactive amoxicillin 875 mg t ablet RxNorm: 643727 1 Tablet(s) PO BID 10/19/2011 10/28/2011 Inactive Protonix 40 mg Tab RxNorm: 753841 1 Tablet(s) PO QD 04/11/2011 10/07/2011 Inactive cefuroxime axetil 50 0 mg Tab RxNorm: 313214 1 Tablet(s) PO BID 03/13/2011 03/22/2011 Inactive Ibuprofen 600 mg Tab RxNorm: 234031 1 Tablet(s) PO TID prn pain 04/26/2010 06/24/2010 Inactive Levapak 750 mg Tablet RxNorm: 1 Tablet(s) PO QD 01/02/2010 01/06/2010 Inactive Children's Multivita mins with Iron chewable tablet RxNorm: 1 Tablet(s) PO QD No Start Date Active Cortisporin otic (ear) RxNorm: 20971 otic (ear) No Start Date 12/16/2018 Inactive Sprix 15.75 mg/spray Nasal [place] RxNorm: 7779709 1 [place] NASAL QID ea ch nostril--for pain for 5 days No Start Date 01/07/2012 Inactive Promethazine-Codeine 6.25 mg-10 mg/5 mL Syrup RxNorm: 351812 1-2 Teaspoon(s) PO Q4 H prn cough No Start Date 04/10/2011 Inactive metformin ER 500 mg 24 hr Tab RxNorm: 560259 1/2 Tablet(s) PO QAM No Start Date 04/29/2012 Inactive metformin ER 500 mg 24 hr tablet,extended release RxNorm: 047483 1/2 Tablet(s) PO QD No Start Date 12/27/2012 Inactive Protonix 40 mg table t,delayed release RxNorm: 819006 1 Tablet(s) PO QD No Start Date 12/02/2013 Inactive Carafate 1 gram Tab RxNorm: 451630 1 Tablet(s) PO AC No Start Date 05/26/2012 Inactive Flonase 50 mcg/Actua tion Nasal [place] RxNorm: 6599868 1 [place] NASAL BID No Start Date 04/10/2011 Inactive Protonix 40 mg table t,delayed release RxNorm: 475176 1 Tablet(s) PO BID No Start Date 12/29/2014 Inactive Protonix 40 mg Tab RxNorm: 079959 1 Tablet(s) PO QD No Start Date 07/20/2013 Inactive Dexilant 60 mg capsu le, delayed release RxNorm: 635335 1 Capsule(s) PO QD No Start Date 06/23/2017 Inactive Diflucan 150 mg tablet RxNorm: 711266 1 Tablet(s) PO Q72H Take one tablet toda y and repeat in 3 days if no improvement. No Start Date 10/03/2017 Inactive Protonix 40 mg table t,delayed release RxNorm: 543190 1 Tablet(s) PO QD No Start Date 04/26/2015 Inactive MetroCream 0.75 % To pical RxNorm: 286883 Application TOP BID No Start Date 05/26/2012 Inactive to face Zithromax Z-Scar 250 mg Tab RxNorm: 800788 1 Tablet(s) PO QD No Start Date 09/16/2011 Inactive as directed Protonix 40 mg table t,delayed release RxNorm: 535736 1 Tablet(s) PO BID No Start Date [...] Item Code Result Date THYROID STIMULATING HORMONE 64764 TSH 1.360 uIU/ML 5 COMPREHENSIVE METABOLIC 34753 AST 12 U/L 10/03/2015 COMPREHENSIVE METABOLIC 83033 ALT 9 IU/L 10/03/2015 COMPREHENSIVE METABOLIC 94660 BUN 10 MG/DL 10/03/2015 COMPREHENSIVE METABOLIC 76123 ALBUMIN 4.3 GM/DL 10/03/2015 COMPREHENSIVE METABOLIC 22566 CHLORIDE 104 MMOL/L 10/03/2015 COMPREHENSIVE METABOLIC 85596 BILI TOT 0.3 MG/DL 10/03/2015 COMPREHENSIVE METABOLIC 78309 ALK PHOS 34 U/L 10/03/2015 COMPREHENSIVE METABOLIC 29910 SODIUM 137 MMOL/L 10/03/2015 COMPREHENSIVE METABOLIC 78705 CREATININE 0.77 MG/DL 10/03/2015 COMPREHENSIVE METABOLIC 32317 CALCIUM 9.6 MG/DL 10/03/2015 COMPREHENSIVE METABOLIC 64470 POTASSIUM 4.1 MMOL/L 10/03/2015 COMPREHENSIVE METABOLIC 92841 PROT TOT 7.1 GM/DL 10/03/2015 COMPREHENSIVE METABOLIC 71144 Glucose 92 MG/DL 10/03/2015 COMPREHENSIVE METABOLIC 81088 BICARB 27 MMOL/L 10/03/2015 COMPREHENSIVE METABOLIC 33534 ANION GAP 6 MEQ/L 10/03/2015 LIPID GROUP [address] 52 MG/DL 10/03/2015 LIPID GROUP 22438 TRIG 78 MG/DL 10/03/2015 LIPID GROUP 71718 TEST L DL 114 MG/DL 10/03/2015 LIPID GROUP 90803 CHOL 182 MG/DL 10/03/2015 LIPID GROUP 15529 RCHOL/ HDL 3.50 RATIO 10/03/2015 LIPID GROUP 24105 NON-HD L CH 130 MG/DL 10/03/2015 GFR CALC 3673746 GFR AA >60 ML/MIN 10/03/2015 GFR CALC 3517064 GFR NON -AA >60 ML/MIN 10/03/2015 COMPLETE BLOOD COUNT 5908211 WBC 4.9 10e9/L 10/03/2015 COMPLETE BLOOD COUNT 7783688 RBC 4.49 10e12/L 5 COMPLETE BLOOD COUNT 2598373 HGB 11.3 g/dL 10/03/2015 COMPLETE BLOOD COUNT 8182022 HCT DET 34.7 % 10/03/2015 COMPLETE BLOOD COUNT 8201093 MCV 77.3 fL 10/03/2015 COMPLETE BLOOD COUNT 9015214 MCH 25.2 pg 10/03/2015 COMPLETE BLOOD COUNT 4153974 MCHC 32.6 g/dL 10/03/2015 COMPLETE BLOOD COUNT 9014489 PLT 314 10e9/L 10/03/2015 COMPLETE BLOOD COUNT 4617398 MPV 10.4 fL 10/03/2015 COMPLETE BLOOD COUNT 1231961 ALEXX % 41.0 % 10/03/2015 COMPLETE BLOOD COUNT 1540315 LY % 47.7 % 10/03/2015 COMPLETE BLOOD COUNT 8643546 MON % 8.4 % 10/03/2015 COMPLETE BLOOD COUNT 0040185 EOS % 2.7 % 10/03/2015 COMPLETE BLOOD COUNT 9951919 BASO % 0.2 % 10/03/2015 COMPLETE BLOOD COUNT 0487844 RDW 14.5 % 10/03/2015 COMPLETE BLOOD COUNT 8731539 ABS ALEXX 2.01 10e9/L 10/03/2015 COMPLETE BLOOD COUNT 3972204 ABS LYMPH 2.34 10e9/L 10/03/2015 COMPLETE BLOOD COUNT 1072854 ABS MONO 0.41 10e9/L 10/03/2015 COMPLETE BLOOD COUNT 4463968 ABS EOS 0.13 10e9/L 10/03/2015 COMPLETE BLOOD COUNT 2938742 ABS BASO 0.01 10e9/L 10/03/2015 COMPLETE BLOOD COUNT 5441055 RDW-SD 39.6 fL 10/03/2015 FREE T4 00863 FREE T4 1.08 NG/DL 10/03/2015 GFR CALC 8013171 GFR AA >60 ML/MIN 12/25/2012 GFR CALC 4554470 GFR NON -AA >60 ML/MIN 12/25/2012 INSULIN SERUM 00508 INSU BRITT 5.0 mU/L 12/25/2012 BASIC METABOLIC PANEL 54690 Glucose 82 MG/DL 12/25/2012 BASIC METABOLIC PANEL 22452 CREATININE 0.83 MG/DL 12/25/2012 BASIC METABOLIC PANEL 54722 BUN 9 MG/DL 12/25/2012 BASIC METABOLIC PANEL 10466 SODIUM 139 MMOL/L 12/25/2012 BASIC METABOLIC PANEL 76118 BICARB 26 MMOL/L 12/25/2012 BASIC METABOLIC PANEL 56217 POTASSIUM 4.3 MMOL/L 12/25/2012 BASIC METABOLIC PANEL 12027 ANION GAP 8 MEQ/L 12/25/2012 BASIC METABOLIC PANEL 27782 CHLORIDE 105 MMOL/L 12/25/2012 BASIC METABOLIC PANEL 82592 CALCIUM 9.6 MG/DL 12/25/2012 GFR CALC 6047087 GFR AA >60 ML/MIN 08/27/2012 GFR CALC 1834557 GFR NON -AA >60 ML/MIN 08/27/2012 COMPREHENSIVE METABOLIC 96481 AST 16 U/L 08/27/2012 COMPREHENSIVE METABOLIC 86885 ALT 11 IU/L 08/27/2012 COMPREHENSIVE METABOLIC 18711 BUN 9 MG/DL 08/27/2012 COMPREHENSIVE METABOLIC 51456 ALBUMIN 4.1 GM/DL 08/27/2012 COMPREHENSIVE METABOLIC 69394 CHLORIDE 106 MMOL/L 08/27/2012 COMPREHENSIVE METABOLIC 43803 BILI TOT 0.2 MG/DL 08/27/2012 COMPREHENSIVE METABOLIC 07618 ALK PHOS 35 U/L 08/27/2012 COMPREHENSIVE METABOLIC 70668 SODIUM 137 MMOL/L 08/27/2012 COMPREHENSIVE METABOLIC 20072 CREATININE 0.80 MG/DL 08/27/2012 COMPREHENSIVE METABOLIC 41501 CALCIUM 9.2 MG/DL 08/27/2012 COMPREHENSIVE METABOLIC 46393 POTASSIUM 4.5 MMOL/L 08/27/2012 COMPREHENSIVE METABOLIC 34140 PROT TOT 6.9 GM/DL 08/27/2012 COMPREHENSIVE METABOLIC 07669 Glucose 92 MG/DL 08/27/2012 COMPREHENSIVE METABOLIC 13237 BICARB 25 MMOL/L 08/27/2012 COMPREHENSIVE METABOLIC 73766 ANION GAP 6 MEQ/L 08/27/2012 INSULIN SERUM 86979 INSU BRITT 10.6 mU/L 08/27/2012 GFR CALC 8517183 GFR AA >60 ML/MIN 04/29/2012 GFR CALC 3729044 GFR NON -AA >60 ML/MIN 04/29/2012 GLYCOSYLATED HEMOGLOBIN TEST 91439 A1C HPLC 30975-2 5.6 % 04/29/2012 COMPREHENSIVE METABOLIC 63438 AST 14 U/L 04/29/2012 COMPREHENSIVE METABOLIC 06581 ALT 9 IU/L 04/29/2012 COMPREHENSIVE METABOLIC 43049 BUN 11 MG/DL 04/29/2012 COMPREHENSIVE METABOLIC 79046 ALBUMIN 4.4 GM/DL 04/29/2012 COMPREHENSIVE METABOLIC 71858 CHLORIDE 105 MMOL/L 04/29/2012 COMPREHENSIVE METABOLIC 68672 BILI TOT 0.2 MG/DL 04/29/2012 COMPREHENSIVE METABOLIC 79309 ALK PHOS 36 U/L 04/29/2012 COMPREHENSIVE METABOLIC 94897 SODIUM 139 MMOL/L 04/29/2012 COMPREHENSIVE METABOLIC 66896 CREATININE 0.80 MG/DL 04/29/2012 COMPREHENSIVE METABOLIC 69886 CALCIUM 9.5 MG/DL 04/29/2012 COMPREHENSIVE METABOLIC 58510 POTASSIUM 4.4 MMOL/L 04/29/2012 COMPREHENSIVE METABOLIC 38407 PROT TOT 6.6 GM/DL 04/29/2012 COMPREHENSIVE METABOLIC 89441 Glucose 81 MG/DL 04/29/2012 COMPREHENSIVE METABOLIC 16591 BICARB 26 MMOL/L 04/29/2012 COMPREHENSIVE METABOLIC 15304 ANION GAP 8 MEQ/L 04/29/2012 INSULIN SERUM 93553 INSU BRITT 28.2 mU/L 12/26/2011 COMPREHENSIVE METABOLIC 18642 AST 19 U/L 12/25/2011 COMPREHENSIVE METABOLIC 85905 ALT 15 IU/L 12/25/2011 COMPREHENSIVE METABOLIC 78198 BUN 8 MG/DL 12/25/2011 COMPREHENSIVE METABOLIC 78123 ALBUMIN 4.6 GM/DL 12/25/2011 COMPREHENSIVE METABOLIC 58317 CHLORIDE 105 MMOL/L 12/25/2011 COMPREHENSIVE METABOLIC 96402 BILI TOT 0.4 MG/DL 12/25/2011 COMPREHENSIVE METABOLIC 69322 ALK PHOS 38 U/L 12/25/2011 COMPREHENSIVE METABOLIC 27213 SODIUM 141 MMOL/L 12/25/2011 COMPREHENSIVE METABOLIC 37892 CREATININE 0.74 MG/DL 12/25/2011 COMPREHENSIVE METABOLIC 90758 CALCIUM 9.4 MG/DL 12/25/2011 COMPREHENSIVE METABOLIC 32093 POTASSIUM 4.1 MMOL/L 12/25/2011 COMPREHENSIVE METABOLIC 78644 PROT TOT 7.6 GM/DL 12/25/2011 COMPREHENSIVE METABOLIC 67077 Glucose 53 MG/DL 12/25/2011 COMPREHENSIVE METABOLIC 52456 BICARB 25 MMOL/L 12/25/2011 COMPREHENSIVE METABOLIC 11651 ANION GAP 11 MEQ/L 12/25/2011 COMPLETE BLOOD COUNT 33228 WBC 3.7 10e9/L 12/25/2011 COMPLETE BLOOD COUNT 92697 RBC 4.53 10e12/L 2 COMPLETE BLOOD COUNT 72599 HGB 11.4 g/dL 12/25/2011 COMPLETE BLOOD COUNT 86852 HCT DET 35.4 % 12/25/2011 COMPLETE BLOOD COUNT 05542 MCV 78.1 fL 12/25/2011 COMPLETE BLOOD COUNT 04335 MCH 25.2 pg 12/25/2011 COMPLETE BLOOD COUNT 08484 MCHC 32.2 g/dL 12/25/2011 COMPLETE BLOOD COUNT 63103 PLT 327 10e9/L 12/25/2011 COMPLETE BLOOD COUNT 59609 MPV 10.9 fL 12/25/2011 COMPLETE BLOOD COUNT 34487 ALEXX % 30.9 % 12/25/2011 COMPLETE BLOOD COUNT 00110 LY % 57.0 % 12/25/2011 COMPLETE BLOOD COUNT 75988 MON % 9.1 % 12/25/2011 COMPLETE BLOOD COUNT 14178 EOS % 2.7 % 12/25/2011 COMPLETE BLOOD COUNT 76662 BASO % 0.3 % 12/25/2011 COMPLETE BLOOD COUNT 72657 RDW 14.0 % 12/25/2011 COMPLETE BLOOD COUNT 70833 ABS ALEXX 1.14 10e9/L 12/25/2011 COMPLETE BLOOD COUNT 31589 ABS LYMPH 2.11 10e9/L 12/25/2011 COMPLETE BLOOD COUNT 65554 ABS MONO 0.34 10e9/L 12/25/2011 COMPLETE BLOOD COUNT 10132 ABS EOS 0.10 10e9/L 12/25/2011 COMPLETE BLOOD COUNT 55425 ABS BASO 0.01 10e9/L 12/25/2011 COMPLETE BLOOD COUNT 54142 RDW-SD 39.0 fL 12/25/2011 GFR CALC 7600138 GFR AA >60 ML/MIN 12/25/2011 GFR CALC 3379311 GFR NON -AA >60 ML/MIN 12/25/2011 AMYLASE 71678 AMYLASE 63 IU/L 05/31/2011 GFR CALC 1014757 GFR AA >60 ML/MIN 05/31/2011 GFR CALC 3461659 GFR NON -AA >60 ML/MIN 05/31/2011 COMPLETE BLOOD COUNT 01419 WBC 5.0 10e9/L 05/31/2011 COMPLETE BLOOD COUNT 94419 RBC 4.56 10e12/L 1 COMPLETE BLOOD COUNT 85888 HGB 11.6 g/dL 05/31/2011 COMPLETE BLOOD COUNT 48457 HCT DET 35.1 % 05/31/2011 COMPLETE BLOOD COUNT 71202 MCV 77.0 fL 05/31/2011 COMPLETE BLOOD COUNT 27766 MCH 25.4 pg 05/31/2011 COMPLETE BLOOD COUNT 44767 MCHC 33.0 g/dL 05/31/2011 COMPLETE BLOOD COUNT 37133 PLT 313 10e9/L 05/31/2011 COMPLETE BLOOD COUNT 34254 MPV 11.0 fL 05/31/2011 COMPLETE BLOOD COUNT 37134 ALEXX % 37.7 % 05/31/2011 COMPLETE BLOOD COUNT 56304 LY % 49.1 % 05/31/2011 COMPLETE BLOOD COUNT 57116 MON % 10.4 % 05/31/2011 COMPLETE BLOOD COUNT 37090 EOS % 2.6 % 05/31/2011 COMPLETE BLOOD COUNT 77744 BASO % 0.2 % 05/31/2011 COMPLETE BLOOD COUNT 65641 RDW 13.7 % 05/31/2011 COMPLETE BLOOD COUNT 33159 ABS ALEXX 1.89 10e9/L 05/31/2011 COMPLETE BLOOD COUNT 80726 ABS LYMPH 2.46 10e9/L 05/31/2011 COMPLETE BLOOD COUNT 20562 ABS MONO 0.52 10e9/L 05/31/2011 COMPLETE BLOOD COUNT 90775 ABS EOS 0.13 10e9/L 05/31/2011 COMPLETE BLOOD COUNT 17205 ABS BASO 0.01 10e9/L 05/31/2011 COMPLETE BLOOD COUNT 96763 RDW-SD 37.4 fL 05/31/2011 COMPREHENSIVE METABOLIC 02342 AST 16 U/L 05/31/2011 COMPREHENSIVE METABOLIC 87410 ALT 10 IU/L 05/31/2011 COMPREHENSIVE METABOLIC 53239 BUN 9 MG/DL 05/31/2011 COMPREHENSIVE METABOLIC 75667 ALBUMIN 4.4 GM/DL 05/31/2011 COMPREHENSIVE METABOLIC 38171 CHLORIDE 102 MMOL/L 05/31/2011 COMPREHENSIVE METABOLIC 25329 BILI TOT 0.3 MG/DL 05/31/2011 COMPREHENSIVE METABOLIC 64504 ALK PHOS 36 U/L 05/31/2011 COMPREHENSIVE METABOLIC 17427 SODIUM 138 MMOL/L 05/31/2011 COMPREHENSIVE METABOLIC 83787 CREATININE 0.72 MG/DL 05/31/2011 COMPREHENSIVE METABOLIC 85018 CALCIUM 9.6 MG/DL 05/31/2011 COMPREHENSIVE METABOLIC 88935 POTASSIUM 3.9 MMOL/L 05/31/2011 COMPREHENSIVE METABOLIC 70175 PROT TOT 7.2 GM/DL 05/31/2011 COMPREHENSIVE METABOLIC 38992 Glucose 82 MG/DL 05/31/2011 COMPREHENSIVE METABOLIC 82497 BICARB 29 MMOL/L 05/31/2011 COMPREHENSIVE METABOLIC 65754 ANION GAP 7 MEQ/L 05/31/2011 LIPASE 07927 LIPASE 11 IU/L 05/31/2011 Review of Systems [...] nontender 05/25/2019 None Full Exam - General Constitutional [...] Date URINE CULTURE/ COLON Y COUNT CPT-4: 73937 05/25/2019 STREP A ASSAY W/OPTIC CPT-4: 41586 12/16/2018 URINE CULTURE/ COLON Y COUNT CPT-4: 85777 12/02/2018 URINALYSIS NONAUTO W /O SCOPE CPT-4: 07297 10/21/2017 URINE CULTURE/ COLON Y COUNT CPT-4: 80224 10/21/2017 STREP A ASSAY W/OPTIC CPT-4: 70244 11/22/2015 ROUTINE VENIPUNCTURE CPT-4: 00168 10/03/2015 ASSAY OF FREE THYROXINE CPT-4: 23215 10/03/2015 ASSAY THYROID STIM H ORMONE CPT-4: 40243 10/03/2015 COMPREHEN METABOLIC PANEL CPT-4: 08823 10/03/2015 COMPLETE CBC W/AUTO DIFF WBC CPT-4: 11345 10/03/2015 LIPID PANEL CPT-4: 21327 10/03/2015 URINALYSIS NONAUTO W /O SCOPE CPT-4: 46230 08/01/2015 URINE CULTURE/ COLON Y COUNT CPT-4: 78213 08/01/2015 STREP A ASSAY W/OPTIC CPT-4: 44362 12/25/2013 URINALYSIS NONAUTO W /O SCOPE CPT-4: 24859 12/17/2013 THER/PROPH/DIAG INJ SC/IM CPT-4: 64654 07/21/2013 METHYLPREDNISOLONE 4 0 MG INJ CPT-4: J1030 07/21/2013 TRIAMCINOLONE ACET I [place] NOS CPT-4: J3301 07/21/2013 C WET CA CPT-4: 62672 06/12/2013 ROUTINE VENIPUNCTURE CPT-4: 17795 12/25/2012 METABOLIC PANEL TOTA L CA CPT-4: 16251 12/25/2012 ASSAY OF INSULIN CPT-4: 47540 12/25/2012 ROUTINE VENIPUNCTURE CPT-4: 82559 08/27/2012 COMPREHEN METABOLIC PANEL CPT-4: 00333 08/27/2012 ASSAY OF INSULIN CPT-4: 62378 08/27/2012 ROUTINE VENIPUNCTURE CPT-4: 55533 04/29/2012 COMPREHEN METABOLIC PANEL CPT-4: 04655 04/29/2012 A1C GLYCOSYLATED HEM OGLOBIN TEST CPT-4: 06533 04/29/2012 COMPLETE CBC W/AUTO DIFF WBC CPT-4: 64880 12/25/2011 COMPREHEN METABOLIC PANEL CPT-4: 93296 12/25/2011 ROUTINE VENIPUNCTURE CPT-4: 96241 12/25/2011 ASSAY OF INSULIN CPT-4: 98577 12/25/2011 THER/PROPH/DIAG INJ SC/IM CPT-4: 51577 09/17/2011 KETOROLAC TROMETHAMI NE INJ CPT-4: J1885 09/17/2011 ROUTINE VENIPUNCTURE CPT-4: 48218 05/31/2011 COMPREHEN METABOLIC PANEL CPT-4: 74086 05/31/2011 COMPLETE CBC W/AUTO DIFF WBC CPT-4: 49128 05/31/2011 ASSAY OF LIPASE CPT-4: 49642 05/31/2011 ASSAY OF AMYLASE CPT-4: 56105 05/31/2011 URINALYSIS NONAUTO W /O SCOPE CPT-4: 13282 08/01/2010 URINE CULTURE/ COLON Y COUNT CPT-4: 41042 08/01/2010 Vital Signs Date Vital 05/25/2019 Blood [...] 1: 136/86 Code: 8480-6 BMI: 33.5 Code: 56645-8 Heart Rate 1: 92 bpm Height: 5'2" Respiratory Rate: 20 bpm Temperature: 37.1 (C ) / 98.8 (F) Weight: 180 lbs 08/18/2018 Blood Pressure 1: 136/78 Code: 8480-6 Heart Rate 1: 91 bpm Respiratory Rate: 18 bpm SpO2: 99% Temperature: 36.4 (C ) / 97.5 (F) Weight: 183 lbs 06/24/2017 Blood Pressure 1: 140/80 Code: 8480-6 BMI: 34.2 Code: 07781-0 Heart Rate 1: 76 bpm Height: 5'2" Respiratory Rate: 20 bpm Temperature: 36.7 (C ) / 98.0 (F) Weight: 184 lbs 04/11/2017 Blood Pressure 1: 132/86 Code: 8480-6 Heart Rate 1: 84 bpm Respiratory Rate: 20 bpm SpO2: 97% Temperature: 36.6 (C ) / 97.8 (F) Weight: 181 lbs 01/18/2017 Blood Pressure 1: 122/80 Code: 8480-6 BMI: 31.6 Code: 78333-2 Heart Rate 1: 76 bpm Height: 5'2" Respiratory Rate: 20 bpm SpO2: 96% Temperature: 36.7 (C ) / 98.1 (F) Weight: 170 lbs 11/26/2016 Blood Pressure 1: 128/80 Code: 8480-6 BMI: 31.0 Code: 18650-4 Heart Rate 1: 84 bpm Height: 5'2" Respiratory Rate: 20 bpm SpO2: 98% Temperature: 36.8 (C ) / 98.2 (F) Weight: 167 lbs 10/25/2016 Blood Pressure 1: 118/76 Code: 8480-6 BMI: 30.9 Code: 88921-3 Heart Rate 1: 72 bpm Height: 5'2" Weight: 166 lbs 09/21/2016 Blood Pressure 1: 124/70 Code: 8480-6 BMI: 31.0 Code: 75524-0 Heart Rate 1: 80 bpm Height: 5'2" Weight: 167 lbs 08/23/2016 Blood Pressure 1: 138/82 Code: 8480-6 BMI: 31.6 Code: 77354-3 Heart Rate 1: 64 bpm Height: 5'2" [...] 1: 140/78 Code: 8480-6 BMI: 33.5 Code: 35782-7 Heart Rate 1: 82 bpm Height: 5'2" Respiratory Rate: 22 bpm SpO2: 97% Temperature: 36.3 (C ) / 97.4 (F) Weight: 180 lbs 11/22/2015 Blood Pressure 1: 110/68 Code: 8480-6 BMI: 33.1 Code: 79936-4 Heart Rate 1: 80 bpm Height: 5'2" Respiratory Rate: 20 bpm Temperature: 36.8 (C ) / 98.3 (F) Weight: 178 lbs 06/28/2015 Blood Pressure 1: 124/70 Code: 8480-6 BMI: 31.0 Code: 13731-7 Heart Rate 1: 80 bpm Height: 5'2" Respiratory Rate: 20 bpm Temperature: 36.8 (C ) / 98.3 (F) Weight: 167 lbs 05/02/2015 Blood Pressure 1: 122/76 Code: 8480-6 BMI: 31.4 Code: 79083-4 Heart Rate 1: 78 bpm Height: 5'2" Respiratory Rate: 20 bpm Temperature: 36.3 (C ) / 97.4 (F) Weight: 169 lbs 03/29/2015 Blood Pressure 1: 126/78 Code: 8480-6 BMI: 30.9 Code: 07162-8 Heart Rate 1: 88 bpm Height: 5'2" Respiratory Rate: 20 bpm Temperature: 37.1 (C ) / 98.7 (F) Weight: 166 lbs 02/15/2015 Blood Pressure 1: 126/78 Code: 8480-6 BMI: 30.5 Code: 84527-4 Heart Rate 1: 76 bpm Height: 5'2" Respiratory Rate: 20 bpm Temperature: 36.6 (C ) / 97.8 (F) Weight: 164 lbs 12/30/2014 Blood Pressure 1: 118/84 Code: 8480-6 BMI: 30.1 Code: 62017-3 Heart Rate 1: 84 bpm Height: 5'2" Respiratory Rate: 20 bpm Temperature: 37.0 (C ) / 98.6 (F) Weight: 162 lbs 09/30/2014 Blood Pressure 1: 132/68 Code: 8480-6 BMI: 30.1 Code: 53754-5 Heart Rate 1: 84 bpm Height: 5'2" Respiratory Rate: 22 bpm Temperature: 36.5 (C ) / 97.7 (F) Weight: 162 lbs 07/19/2014 Blood Pressure 1: 126/78 Code: 8480-6 BMI: 29.7 Code: 39087-7 Heart Rate 1: 72 bpm Height: 5'2" Respiratory Rate: 20 bpm Temperature: 36.8 (C ) / 98.2 (F) Weight: 160 lbs 06/01/2014 Blood Pressure 1: 132/86 Code: 8480-6 BMI: 29.6 Code: 83109-0 Heart Rate 1: 72 bpm Height: 5'2" [...] 1: 122/80 Code: 8480-6 BMI: 29.6 Code: 46587-8 Heart Rate 1: 80 bpm Height: 5'2" Respiratory Rate: 20 bpm Temperature: 36.8 (C ) / 98.3 (F) Weight: 159 lbs 08/14/2013 Blood Pressure 1: 138/82 Code: 8480-6 BMI: 27.5 Code: 90612-1 Heart Rate 1: 66 bpm Height: 5'2" Respiratory Rate: 20 bpm Temperature: 36.5 (C ) / 97.7 (F) Weight: 148 lbs 08/03/2013 Blood Pressure 1: 126/82 Code: 8480-6 BMI: 29.1 Code: 25104-2 Heart Rate 1: 72 bpm Height: 5'1" Respiratory Rate: 20 bpm Temperature: 36.6 (C ) / 97.8 (F) Weight: 154 lbs 07/21/2013 Blood Pressure 1: 124/70 Code: 8480-6 BMI: 28.3 Code: 41942-2 Heart Rate 1: 64 bpm Height: 5'1" Respiratory Rate: 22 bpm Temperature: 36.5 (C ) / 97.7 (F) Weight: 150 lbs 06/12/2013 Blood Pressure 1: 124/78 Code: 8480-6 BMI: 28.6 Code: 76709-3 Heart Rate 1: 88 bpm Height: 5'2" Respiratory Rate: 20 bpm Temperature: 36.9 (C ) / 98.4 (F) Weight: 154 lbs 12/25/2012 Blood Pressure 1: 128/84 Code: 8480-6 BMI: 27.0 Code: 06815-2 Heart Rate 1: 76 bpm Height: 5'2" Respiratory Rate: 20 bpm Temperature: 36.9 (C ) / 98.4 (F) Weight: 145 lbs 10/30/2012 Blood Pressure 1: 122/68 Code: 8480-6 BMI: 28.8 Code: 79425-2 Heart Rate 1: 60 bpm Height: 5'2" Temperature: 36.9 (C ) / 98.5 (F) Weight: 155 lbs 08/28/2012 Blood Pressure 1: 112/80 Code: 8480-6 BMI: 29.7 Code: 54868-5 Heart Rate 1: 72 bpm Height: 5'2" Respiratory Rate: 20 bpm Temperature: 36.9 (C ) / 98.5 (F) Weight: 160 lbs 05/27/2012 Blood Pressure 1: 128/80 Code: 8480-6 BMI: 28.4 Code: 63202-8 Heart Rate 1: 72 bpm Height: 5'2" Respiratory Rate: 20 bpm Temperature: 36.8 (C ) / 98.2 (F) Weight: 153 lbs 04/30/2012 Blood Pressure 1: 116/70 Code: 8480-6 BMI: 28.8 Code: 75797-5 Heart Rate 1: 84 bpm Height: 5'2" Respiratory Rate: 20 bpm Temperature: 36.7 (C ) / 98.1 (F) Weight: 155 lbs 02/18/2012 Blood Pressure 1: 118/64 Code: 8480-6 BMI: 28.4 Code: 25355-6 Heart Rate 1: 68 bpm Height: 5'2" Temperature: 36.3 (C ) / 97.4 (F) Weight: 153 lbs 01/08/2012 Blood Pressure 1: 132/80 Code: 8480-6 BMI: 28.8 Code: 10477-9 Heart Rate 1: 76 bpm Height: 5'2" Respiratory Rate: 20 bpm Temperature: 36.7 (C ) / 98.1 (F) Weight: 155 lbs 10/19/2011 Blood Pressure 1: 102/72 Code: 8480-6 BMI: 27.9 Code: 67668-6 Heart Rate 1: 70 bpm Height: 5'2" Temperature: 36.9 (C ) / 98.5 (F) Weight: 150 lbs 09/17/2011 Blood Pressure 1: 126/72 Code: 8480-6 BMI: 28.3 Code: 26251-2 Heart Rate 1: 84 bpm Height: 5'2" Respiratory Rate: 20 bpm Temperature: 36.7 (C ) / 98.1 (F) Weight: 152 lbs 07/05/2011 Blood Pressure 1: 102/68 Code: 8480-6 Heart Rate 1: 88 bpm Temperature: 36.7 (C) / 98.1 (F) Weight: 145 lbs 05/31/2011 Blood Pressure 1: 126/82 Code: 8480-6 BMI: 27.3 Code: 24158-7 Heart Rate 1: 80 bpm Height: 5'2" [...] Weight: 130 lbs 01/02/2010 BMI: 25.7 Code: 57514-7 Heart Rate 1: 84 bpm Height: 5'2" [...] Encounters Encounter Performer Loca tion Codes Date ([id number]) OFFICE/OUTPA TIENT VISIT EST Diagnosis: Low back pain[ICD10: M54.5] Diagnosis: Personal history of urinary (tract) infections[ICD10: Z87.440] Nikole Damicogodwin ENRIQUEZ [employer] CPT-4: 28034 05/25/2019 ([id number]) OFFICE/OUTPA TIENT VISIT EST Diagnosis: Palpitations[ICD10: R00.2] Almaz ENRIQUEZ [employer] CPT-4: 13438 05/06/2019 OFFICE/OUTPATIENT SIT EST Diagnosis: Other infective otitis externa, right ear[ICD10: H60.391] Diagnosis: Acute serous otitis media, recurrent, right ear[ICD10: H65.04] Elisha ENRIQUEZ [employer] CPT-4: 40585 12/16/2018 ([id number]) NURSE/OUTPAT IENT VISIT EST Diagnosis: Dysuria[ICD10: R30.0] Almaz ENRIQUEZ [employer] CPT-4: 10222 12/02/2018 ([id number]) OFFICE/OUTPA TIENT VISIT EST Diagnosis: Palpitations[ICD10: R00.2] Diagnosis: Abnormal results of thyroid function studies[ICD10: R94.6] Almaz ENRIQUEZ DO [employer] CPT-4: 46749 09/09/2018 ([id number]) OFFICE/OUTPA TIENT VISIT EST Diagnosis: Pain in right knee[ICD10: M25.561] Almaz OWEN DO [employer] CPT-4: 72510 08/28/2018 ([id number]) OFFICE/OUTPA TIENT VISIT EST Diagnosis: Gastro-esophageal reflux disease without esophagitis[ICD10: K21.9] Almaz ENRIQUEZ DO [employer] CPT-4: 38960 08/18/2018 ([id number]) OFFICE/OUTPA TIENT VISIT EST Diagnosis: Other polyuria[ICD10: R35.8] Almaz ENRIQUEZ [employer] CPT-4: 23342 10/21/2017 ([id number]) OFFICE/OUTPA TIENT VISIT EST Diagnosis: Otalgia, left ear[ICD10: H92.02] Diagnosis: Left temporomandibular joint disorder, unspecified[ICD10: M26.602] Almaz ENRIQUEZ [employer] CPT-4: 21551 06/24/2017 OFFICE/OUTPATIENT SIT EST Diagnosis: Insect bite (nonvenomous) of right upper arm, sequela[ICD10: S40.861S] Almaz ENRIQUEZ DO [employer] CPT-4: 05894 04/11/2017 ([id number]) OFFICE/OUTPA TIENT VISIT EST Diagnosis: Other seasonal allergic rhinitis[ICD10: J30.2] Aracelis Mercado ALMAZ ENRIQUEZ [employer] CPT-4: 61061 01/18/2017 ([id number]) OFFICE/OUTPA TIENT VISIT EST Diagnosis: Abnormal weight gain[ICD10: R63.5] Diagnosis: Tinea corporis[ICD10: B35.4] Almaz ENRIQUEZ [employer] CPT-4: 20008 11/26/2016 ([id number]) OFFICE/OUTPA TIENT VISIT EST Diagnosis: Abnormal weight gain[ICD10: R63.5] Almaz WU BlancheKaz NATHAN NDEDanilo [facility] CPT-4: 23025 08/23/2016 ([id number]) OFFICE/OUTPA TIENT VISIT EST Diagnosis: Pain in left knee[ICD10: M25.562] Aracelis Mercado ALMAZ ENRIQUEZ DO [facility] CPT-4: 15311 06/14/2016 OFFICE/OUTPATIENT SIT EST Diagnosis: Other specified disorders of Eustachian tube, left ear[ICD10: H69.82] Radha TalleyCarolinemichaelle CALDERAQUELINE Bl[employer]Kaz NATHANBRAYDEN JONES [facility] CPT-4: 05396 04/19/2016 ([id number]) OFFICE/OUTPA TIENT VISIT EST Diagnosis: Other specified disorders of Eustachian tube, bilateral[ICD10: H69.83] Diagnosis: Otitis media, unspecified, right ear[ICD10: H66.91] Aracelis Mercado ALMAZ ENRIQUEZ DO [facility] CPT-4: 56208 04/10/2016 OFFICE/OUTPATIENT SIT EST Diagnosis: Acute pharyngitis, unspecified[ICD10: J02.9] Radha TalleySurekha ARROYO DO [facility] CPT-4: 08264 11/22/2015 ([id number]) OFFICE/OUTPA TIENT VISIT EST Diagnosis: Encounter for general adult medical examination without abnormal findings[ICD10: Z00.00] Almaz Price NATHANBRAYDEN JONES [facility] CPT-4: 00840 10/03/2015 ([id number]) OFFICE/OUTPA TIENT VISIT EST Diagnosis: Myalgia[ICD10: M79.1] Diagnosis: Unspecified abdominal pain[ICD10: R10.9] Almaz Price NATHAN NDEDanilo [employer] [facility] CPT-4: 64099 08/01/2015 ([id number]) OFFICE/OUTPA TIENT VISIT EST Diagnosis: Proctalgia[ICD9: 569.42] Diagnosis: Rectal bleeding[ICD9: 569.3] Almaz Price NATHANNDER DO [facility] CPT-4: 59157 06/28/2015 ([id number]) OFFICE/OUTPA TIENT VISIT EST Diagnosis: Right calf pain[ICD9: 729.5] Za Barajas ALMAZ BlancheKaz ZOE [facility] CPT-4: 70404 05/02/2015 ([id number]) OFFICE/OUTPA TIENT VISIT EST Diagnosis: Flank pain[ICD9: 789.00] Diagnosis: MALAISE AND FATIGUE[ICD9: 780.79] Diagnosis: ABNORMAL WEIGHT GAIN[ICD9: 783.1] Almaz Zoe MAGANALINE BlancheKaz NATHAN OWEN [facility] CPT-4: 46866 03/29/2015 ([id number]) OFFICE/OUTPA TIENT VISIT EST Diagnosis: ALLERGIC RHINITIS[ICD9: 477.9] Almaz Nathanbrayden ALMAZ BlancheKaz BRITNIGLADYS [facility] CPT-4: 03369 02/15/2015 ([id number]) OFFICE/OUTPA TIENT VISIT EST Diagnosis: GERD[ICD9: 530.81] Almaz Nathanlevigladys ALMAZ BlancheKaz [facility]AD[facility] CPT-4: 24306 12/30/2014 ([id number]) OFFICE/OUTPA TIENT VISIT EST Diagnosis: Tenosynovitis, de Quervain[ICD9: 727.04] Diagnosis: Paresthesia of hand[ICD9: 782.0] Almaz Nathanbrayden ALMAZ BlancheKaz [facility] CPT-[facility]: 82562 09/30/2014 ([id number]) OFFICE/OUTPA TIENT VISIT EST Diagnosis: ABDOMINAL PAIN[ICD9: 789.00] Diagnosis: GERD[ICD9: 530.81] Diagnosis: TREMOR NEC[ICD9: 333.1] Almaz Nathanlevigladys ALMAZ BlancheKaz [facility] CPT-4: 35264 07/19/2014 ([id number]) OFFICE/OUTPA TIENT VISIT EST Diagnosis: PAIN, LOWER BACK[ICD9: 724.2] Diagnosis: SPASM OF MUSCLE[ICD9: 728.85] Almaz Rydergladys ALMAZ Price [facility] CPT-4: 88491 06/01/2014 OFFICE/OUTPATIENT SIT EST Diagnosis: TONSILLITIS, ACUTE[ICD9: 463] Diagnosis: STREPTOCOCCAL INFECTION GROUP A[ICD9: 041.01] Radha WU S. O RENDER [facility] CPT-4: 56494 12/25/2013 OFFICE/OUTPATIENT SIT EST Diagnosis: DYSURIA[ICD9: 788.1] Radha ENRIQUEZ [facility] CPT-4: 40237 12/17/2013 ([id number]) OFFICE/OUTPA TIENT VISIT EST Diagnosis: BRONCHITIS, ACUTE[ICD9: 466.0] Almaz Nathanlevigladys ALMAZ BlancheKaz [facility] CPT-[facility]: 12090 09/15/2013 OFFICE/OUTPATIENT SIT EST Diagnosis: URI, ACUTE[ICD9: 465.9] Za PoeAdolfo ALMAZ BlancheKaz [facility] CPT-4: 92049 08/14/2013 ([id number]) OFFICE/OUTPA TIENT VISIT EST Diagnosis: PALPITATIONS[ICD9: 785.1] Almaz Nathanlevigladys MAGANAALMAZ BlancheKaz [facility] CPT-4: 30715 08/03/2013 OFFICE/OUTPATIENT SIT EST Diagnosis: SINUSITIS, ACUTE[ICD9: 461.9] Diagnosis: Dysfunction of left Eustachian tube[ICD9: 381.81] Radha WU S. O RENDER [facility] CPT-4: 96143 07/21/2013 OFFICE/OUTPATIENT SIT EST Diagnosis: Vaginal disorder[ICD9: 623.9] Za PoeAdolfo CALDERAQUELINE BlancheKaz [facility] CPT-4: 04405 06/12/2013 OFFICE/OUTPATIENT SIT EST Diagnosis: HYPOGLYCEMIA NEC[ICD9: 251.1] Diagnosis: GERD[ICD9: 530.81] Almaz Rydergladys ALMAZ BlancheKaz [facility] CPT-4: 82182 12/25/2012 OFFICE/OUTPATIENT SIT EST Diagnosis: COUGH[ICD9: 786.2] Diagnosis: PHARYNGITIS, ACUTE[ICD9: 462] Almaz Rydergladys ALMAZ BlancheKaz [facility] CPT-4: 55788 10/30/2012 OFFICE/OUTPATIENT SIT EST Diagnosis: HYPOGLYCEMIA[ICD9: 251.2] Diagnosis: GERD[ICD9: 530.81] Diagnosis: Fibroid tumor[ICD9: 218.9] Almaz WU BlancheKaz [facility] CPT-4: 97368 08/28/2012 ([id number]) OFFICE/OUTPA TIENT VISIT EST Diagnosis: Hyperglycemia[ICD9: 790.29] Almaz ENRIQUEZ DO [facility] CPT-4: 05626 08/27/2012 ([id number]) OFFICE/OUTPA TIENT VISIT EST Diagnosis: GERD[ICD9: 530.81] Almaz ENRIQUEZ DO [facility] CPT-4: 18041 05/27/2012 ([id number]) OFFICE/OUTPA TIENT VISIT EST Diagnosis: HYPOGLYCEMIA NEC[ICD9: 251.1] Diagnosis: GERD[ICD9: 530.81] Almaz ENRIQUEZ DO [facility] CPT-4: 67953 04/30/2012 ([id number]) OFFICE/OUTPA TIENT VISIT EST Diagnosis: HYPOGLYCEMIA[ICD9: 251.2] Almaz ENRIQUEZ DO [facility] CPT-4: 52744 04/29/2012 OFFICE/OUTPATIENT SIT EST Diagnosis: CONJUNCTIVITIS NOS[ICD9: 372.30] Almaz ENRIQUEZ DO [facility] CPT-4: 85366 02/18/2012 OFFICE/OUTPATIENT SIT EST Diagnosis: Hyperinsulinemia[ICD9: 251.1] Diagnosis: HYPOGLYCEMIA[ICD9: 251.2] Almaz ENRIQUEZ [facility] CPT-4: 59198 01/08/2012 ([id number]) OFFICE/OUTPA TIENT VISIT EST Diagnosis: Leg cramps[ICD9: 729.82] Almaz ENRIQUEZ DO [facility] CPT-4: 24846 12/25/2011 OFFICE/OUTPATIENT SIT EST Diagnosis: PHARYNGITIS, ACUTE[ICD9: 462] Almaz ENRIQUEZ [facility] CPT-4: 04884 10/19/2011 OFFICE/OUTPATIENT SIT EST Diagnosis: Pyelonephritis[ICD9: 590.80] Diagnosis: Flank pain[ICD9: 789.00] Diagnosis: Recurrent UTI[ICD9: 599.0] Diagnosis: Thoracic back pain[ICD9: 724.1] Almaz ENRIQUEZ DO [facility] CPT-4: 19298 09/17/2011 OFFICE/OUTPATIENT SIT EST Diagnosis: PHARYNGITIS, ACUTE[ICD9: 462] Almaz ENRIQUEZ DO [facility] CPT-4: 05078 07/05/2011 OFFICE/OUTPATIENT SIT EST Diagnosis: GERD[ICD9: 530.81] Diagnosis: ABDOMINAL PAIN[ICD9: 789.00] Almaz RYDERER DO [facility] CPT-4: 65166 05/31/2011 OFFICE/OUTPATIENT SIT EST Almaz NEWBERRY NDER DO [facility] CPT-4: 64119 04/11/2011 ([id number]) OFFICE/OUTPA TIENT VISIT EST Almaz NEWBERRY NDER DO [facility] CPT-4: 46741 03/13/2011 ([id number]) OFFICE/OUTPA TIENT VISIT EST Almaz NEWBERRY NDER DO [facility] CPT-4: 18136 11/30/2010 ([id number]) OFFICE/OUTPA TIENT VISIT, EST Almaz NEWBERRY NDER DO [facility] CPT-4: 96468 11/02/2010 ([id number]) OFFICE/OUTPA TIENT VISIT, EST Lucy NEWBERRYNDER DO [facility] CPT-4: 54422 07/25/2010 ([id number]) OFFICE/OUTPA TIENT VISIT, EST Almaz NEWBERRY NDER DO [facility] CPT-4: 32980 01/02/2010 Plan of Care Planned Activity Notes [...] : R00.2 05/06/2019 Appointment: Almaz Enriquez WPtel: [address] [place] [address] ACUTE ILLNESS 05/06/2019 Visit Diagnosis Plan: Other [...] ICD-10 : H65.04 12/16/2018 Appointment: Elisha Leiva [facility] [employer] [address] ACUTE ILLNESS 12/16/2018 Patient Education: amoxicillin- [employer] Coupon [id number] [email or web address] Completed 12/16/2018 Appointment: Almaz Enriquez WPtel: [address] [place], [place] [phone] UA 12/02/2018 Visit Diagnosis Plan: Palpitations D iscussion: [...] : R94.6 09/09/2018 Appointment: Almaz Enriquez WPtel: [address] [place] [address] Hospital Follow Up 09/09/2018 Visit Diagnosis Plan: Pain in right knee Discussion: Referral to Dr. Pako Lowry and topical voltaren ICD-9 : 719.46 ICD-10 : M25.561 08/28/2018 Appointment: Almaz Enriquez WPtel: [address] [place] [address] ACUTE ILLNESS 08/28/2018 Care Plan: Referral Order SNOMED-CT : [id number] Pending 08/28/2018 Visit Diagnosis Plan: Gastro-esophageal reflux disease without esophagitis Discussion: Left lower chest pain appear s to be from GI etiology so will resume protonix 40mg po BID for next week and see if resolves, if improved then can go to protonix 40mg po daily ICD-9 : 530.81 ICD-10 : K21.9 08/18/2018 Appointment: Nikole Gabriel [address] [place] [address] ACUTE ILLNESS 08/18/2018 Patient Education: Patient Medication Summary Completed 05/13/2018 Care Plan: MAMMOGRAM SCREENING LOINC : 62288-1 Pending 05/13/2018 Appointment: Almaz Enriquez WPtel: [address] [place] [address] 10/21/2017 Patient Education: Patient Medication Summary Completed [...] : H92.02 06/24/2017 Appointment: Almaz Enriquez WPtel: [address] [place], [place] [phone] ACUTE ILLNESS 06/24/2017 Patient Education: Patient Medication Summary Completed 06/24/2017 Patient Education: Patient Medication Summary Completed 05/14/2017 Visit Diagnosis Plan: Insect bite (nonve nomous) of right upper arm, sequela Discussion: Finish all abx Add Zyrtec 10 mg daily for 10 days ICD-9 : 906.2 ICD-10 : S40.861S 04/11/2017 Appointment: Almaz Enriquez WPtel: [address] [place], [place] [phone] ER Follow UP 04/11/2017 Patient Education: Patient Medication Summary Completed 04/11/2017 Visit Diagnosis Plan: Other seasonal allergic rhinitis Discussion: Add benadryl at bedtime Nasal rinses, steroid nasal spray Vicks and humidifier Monitor for signs of infection Follow up PRN ICD-9 : 477.9 ICD-10 : J30.2 01/18/2017 Appointment: Aracelis Mercado [address] [place], [place] [phone] ACUTE ILL[facility] 01/18/2017 Patient Education: Patient Medication Summary Completed 01/18/2017 Visit Diagnosis Plan: Tinea corporis Discussion: Ketoconazole BID for 2 weeks Notify if persist or worsens ICD-9 : 110.5 ICD-10 : B35.4 11/26/2016 Visit Diagnosis Plan: Abnormal weight gain Discussion: Long discussion about diet/exercise/lifestyle change--3month trial ICD-9 : 783.1 ICD-10 : R63.5 11/26/2016 Appointment: Almaz Enriqueztel: [address] [place], [place] [phone] 11/22 confirm~sl FOLLOW UP 11/26/2016 Patient Education: Patient Medication Summary Completed 11/26/2016 Appointment: Almaz Enriqueztel: [address] [place], [place] [phone] WT CHECK 10/25/2016 Patient Education: Patient Medication Summary Completed 10/25/2016 Appointment: Almaz Enriquez WPtel: [address] [place] [address] BP CHECK 09/21/2016 Patient Education: Patient Medication Summary Completed 09/21/2016 Visit Plan: Is working out routinel y Will do phenteramine 37.5mg Weight and BP check next 2 months then fwup in 3mos 08/23/2016 Appointment: Almaz Enriquez WPtel: [address] [place] [address] 08/22 confirmed~sl FOLLOW UP 08/23/2016 Patient Education: Patient Medication Summary Completed 08/23/2016 Patient Education: Patient Medication Summary Completed 06/22/2016 Care Plan: X-RAY EXAM OF KNEE 1 OR 2 [facility] : 34719-3 Pending 06/22/2016 Visit Plan: RICE and rx [...] for xray orders 06/14/2016 Appointment: Aracelis Mercado [address] [place] [address] ACUTE ILLNESS 06/14/2016 Patient Education: Patient Medication Summary Completed 06/14/2016 Referral: Jatinder Ambrose WPtel: [address] [place] [address] Referral Appointment Requested 05/09/2016 Visit Plan: Attempted to use ET pop per with minimal relief Fluticasone nasal spray - 2 sprays each nostril one time daily 04/19/2016 Visit Plan: Attempted to use ET pop per with minimal relief Fluticasone nasal spray - 2 sprays each nostril one time daily 04/19/2016 Appointment: Radha Botello WPtel: [address] [place] [address] 04/18 confirmed~sl ACUTE ILLNESS 04/19/2016 Patient Education: [...] Follow up PRN 04/10/2016 Appointment: Aracelis Mercado [address] [place] [address] ACUTE ILLNESS 04/10/2016 Patient Education: Patient Medication Summary Completed 04/10/2016 Visit Plan: Strep Screen - negative Recommending warm saline gargles and notify if symptoms worsen 11/22/2015 Visit Plan: Strep Screen - negative Recommending warm saline gargles and notify if symptoms worsen 11/22/2015 Visit Plan: Strep Screen - negative Recommending warm saline gargles and notify if symptoms worsen 11/22/2015 Appointment: Radha Botello WPtel: [address] [place] [address] ACUTE ILLNESS 11/22/2015 Patient Education: Patient Medication Summary Completed 11/22/2015 Appointment: Almaz Enriquez WPtel: [address] [place], [place] [phone] 10/03/2015 Patient Education: Patient Medication Summary Completed 10/03/2015 Appointment: Almaz Enriquez WPtel: [address] [place] [address] UA 08/01/2015 Patient Education: Patient Medication Summary Completed 08/01/2015 Visit Plan: Anusol HC supp for 2wee ks Align daily for 2weeks If resolves then will observe as came on after recent GI bug but if persists or comes back will need colonoscopy 06/28/2015 Appointment: Almaz Enriquez WPtel: [address] [place] [address] ACUTE ILLNESS 06/28/2015 Patient Education: Patient Medication Summary Completed 06/28/2015 Appointment: Almaz Enriquez WPtel: [address] [place] [address] 05/27 vm cn FOLLOW UP 05/30/2015 Appointment: Almaz Enriquez WPtel: [address] [place] [address] ACUTE ILLNESS 05/16/2015 Visit Plan: Venous dopple of right leg ordered (tomorrow 10am) Recommended daily EC ASA until results 05/02/2015 Visit Plan: Venous dopple of right leg ordered (tomorrow 10am) Recommended daily EC ASA until results 05/02/2015 Appointment: Za Barajas WPtel: [address] [place] [address] ACUTE ILLNESS 05/02/2015 Patient Education: Patient Medication Summary Completed 05/02/2015 Visit Plan: Zain pulliam pack F wup in 2mos 03/29/2015 Appointment: Almaz Enriquez WPtel: [address] [place] [address] ER Follow UP 03/29/2015 Patient Education: Patient Medication Summary Completed 03/29/2015 Visit Plan: Start Loratadine 10mg p o BID Add flonase q HS 02/15/2015 Appointment: Almaz Enriquez WPtel: [address] [place] [address] ACUTE ILLNESS 02/15/2015 Patient Education: Patient Medication Summary Completed 02/15/2015 Visit Plan: Continue protonix and c arafate See GI for update EGD vs pH probe/etc. Discussed musculoskeletal etiology as well as patient does have some chest wall pain and thoracic pain 12/30/2014 Appointment: Almaz Enriquez WPtel: [address] [place], [place] [phone] ER Follow UP 12/30/2014 Patient Education: Patient Medication Summary Completed 12/30/2014 Referral: [facility] Reddy [facility]el[facility] [address] [id number] - Dr Reddy office verifies ins they s chedule with patient directly 10/20/14 Per Patient - she cannot go to this consult because due to her work comp case she must see their preferred dr. Completed 10/12/2014 Visit Plan: Continue wrist splint C heck EMG of RUE Start Vimovo once daily 09/30/2014 Appointment: Almaz Enriquez WPtel: [address] [place], [place] [phone] ER Follow UP 09/30/2014 Patient Education: Patient Medication Summary Completed 09/30/2014 Visit Plan: List reglan as an aller gy--tremor of thumb has improved since stopping Add carafate to protonix for next 2-4weeks If resolves will observe, if not will need updated EGD 07/19/2014 Appointment: Almaz Enriquez WPtel: [address] [place], [place] [phone] 07/16 also left message that payment is due ER Follow UP 4 Patient Education: Patient Medication Summary Completed 07/19/2014 Visit Plan: Stretches, moist heat, topical biofreeze Amrix 15mg q PM Celebrex 200mg po BID 06/01/2014 Appointment: Almaz Enriquez WPtel: [address] [place], [place] [phone] Patient will bring in/call in $50.00 pay ment on 06/08-LB ACUTE ILLNESS 06/01/20 14 Patient Education: Patient Medication Summary Completed 06/01/2014 Visit Plan: Complete antibiotics Ch jacqueline toothbrush 1/2 way through coarse of antibiotics 12/25/2013 Appointment: Radha Botello WPtel: [address] [place], [place] [phone] US was in ER on 12/19/13 ACUTE ILLNESS 12/25/2013 Patient Education: Patient Medication Summary Completed 12/25/2013 Visit Plan: Follow up if symptoms w murtazaen Call if begins to have symptoms of vaginal yeast and will call out bebeto Recommended topical hydrocortisone cream for symptoms 12/17/2013 Appointment: Radha Botello WPtel: [address] [place] [address] ACUTE ILLNESS 12/17/2013 Patient Education: Patient Medication Summary Completed 12/17/2013 Visit Plan: Supportive care. Rest, Fluids, Tylenol/Motrin prn fever or bodyaches. Notify if worsening symptoms. Zitthromax 500mg daily for 1wk Tussionex 09/15/2013 Appointment: Almaz Enriquez WPtel: [address] [place] [address] ACUTE ILLNESS 09/15/2013 Patient Education: Patient Medication Summary Completed 09/15/2013 Visit Plan: Samples Claritin 10mg 1 po daily #8, Nasonex 2 sprays each nostril daily (1 sample) Nasal saline Tylenol/Ibuprofen Rest/fluids Off work today. 08/14/2013 Appointment: Za Barajas WPtel: [address] [place] [address] ACUTE ILLNESS 08/14/2013 Patient Education: Patient Medication Summary Completed 08/14/2013 Visit Plan: Await holter results Av oid decongestants, caffeine Discussed likely secondary to recent illness, steroids, decongestants If persists will get ECHO 08/03/2013 Appointment: Almaz Enriquez WPtel: [address] [place], [place] [phone] ER Follow UP 08/03/2013 Patient Education: Patient Medication Summary Completed 08/03/2013 Visit Plan: Kenalog 40 mg andfDepo Medrol 40 mg Im now. Mucinex D daily. Nasonex nasal spray- 2 sprays eash nostril daily. 07/21/2013 Appointment: Radha Botello WPtel: [address] [place] [address] ACUTE ILLNESS 07/21/2013 Patient Education: Patient Medication Summary Completed 07/21/2013 Visit Plan: Flagyl 500mg 1 po bid x 7 days (with ETOH warning) Discussed d/c is much more yeast appearing, T&M obtained. Discussed that since cervix is still present (supracervical hyst) she will need routine P ap smears. Call if no improvement by next week. 06/12/2013 Appointment: aZ Barajas WPtel: [address] [place] [address] ACUTE ILLNESS 06/12/2013 Patient Education: Patient Medication Summary Completed 06/12/2013 Visit Plan: Continue carafate once daily Check Chem 7, Insulin level today 12/25/2012 Appointment: Almaz Enriquez WPtel: [address] [place] [address] FOLLOW UP 12/25/2012 Patient Education: Patient Medication Summary Completed 12/25/2012 Visit Plan: Azithromycin and codein e/guiaf cough syrup. 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 Discussed notifying if symptoms worsen or persist. Fluids and comfort care. 10/30/2012 Appointment: Lucy Willson WPtel: [address] [place] [address] ACUTE ILLNESS 10/30/2012 Patient Education: Patient Medication Summary Completed 10/30/2012 Visit Plan: Continue metformin and all other meds Pt going for surgery for hysterectomy 08/28/2012 Appointment: Almaz Enriquez WPtel: [address] [place], [place] [phone] FOLLOW UP 08/28/2012 Patient Education: Patient Medication Summary Completed 08/28/2012 Appointment: Almaz Enriquez WPtel: [address] [place], [place] [phone] LAB 08/27/2012 Patient Education: Patient Medication Summary Completed 08/27/2012 Visit Plan: Continue carafate and p rotonix Proceed with EGD 05/27/2012 Appointment: Almaz Enriquez WPtel: [address] [place], [place] [phone] Hospital Follow Up 05/27/2012 Patient Education: Patient Medication Summary Completed 05/27/2012 Visit Plan: Continue metformin and accuchecks Restart Dexilant Check insulin level with CMP in 4mos 04/30/2012 Appointment: Almaz Enriquez WPtel: [address] [place], [place] [phone] FOLLOW UP 04/30/2012 Patient Education: Patient Medication Summary Completed 04/30/2012 Appointment: Almaz Enriquez WPtel: [address] [place] [address] LAB 04/29/2012 Patient Education: Patient Medication Summary Completed 04/29/2012 Visit Plan: Pt. reports both of her children have experienced pink eye recently and were successfully treated with Tobramycin. Pt. is given written RX for Polymyxin B opthalmic drops. Recommend follow up with Dr. Beltre. Discussed precautions to prevent spread. 02/18/2012 Appointment: Lucy Willson WPtel: [address] [place] [address] ACUTE ILLNESS 02/18/2012 Patient Education: Patient Medication Summary Completed 02/18/2012 Visit Plan: Long discussion about d iet and exercise and eating 6 manny meals a day with protein Add daily metformin 250mg Restart MV with iron Glucometer to use prn 01/08/2012 Appointment: Almaz Enriquez WPtel: [address] [place], [place] [phone] FOLLOW UP 01/08/2012 Patient Education: Patient Medication Summary Completed 01/08/2012 Appointment: Almaz Enriquez WPtel: [address] [place], [place] [phone] LAB 12/25/2011 Patient Education: Patient Medication Summary Completed 12/25/2011 Visit Plan: amoxicillin. Discussed comfort care and cold/icy fluids. Tylenol/motrin for pain. Pt. will notify if fever or worsening symptoms. Discussed completion of antibiotic regimen 10/19/2011 Appointment: Lucy Willson WPtel: [address] [place] [address] ACUTE ILLNESS 10/19/2011 Patient Education: Patient Medication Summary Completed 10/19/2011 Visit Plan: Finish omnicef then sta rt daily cipro Toradol given then sprix prn for 5 days for pain See urology due to recurrence of UTIs 09/17/2011 Appointment: Almaz Enriquez WPtel: [address] [place] [address] Follow Up 09/17/2011 Patient Education: Patient Medication Summary Completed 09/17/2011 Visit Plan: New toothebrush in 5 da ysSaline nasal flushes prn. Tylenol/Motrin prn headache. Notify if persists/symptoms worsening. 07/05/2011 Appointment: Almaz Enriquez WPtel: [address] [place] [address] ACUTE ILLNESS 07/05/2011 Patient Education: Patient Medication Summary Completed 07/05/2011 Visit Plan: Continue Protonix Add D exilant 60mg q HS Check CMP, CBC, Lipase 05/31/2011 Appointment: Almaz Enriquez WPtel: [address] [place] [address] ACUTE ILLNESS 05/31/2011 Patient Education: Patient Medication Summary Completed 05/31/2011 Visit Plan: No caffeine, no nicotin e, no mints, no late meals, elevate HOB 30 degrees Restart Protonix 04/11/2011 Appointment: Almaz Enriquez WPtel: [address] [place] [address] ACUTE ILLNESS 04/11/2011 Patient Education: Patient Medication Summary Completed 04/11/2011 Visit Plan: pt. will take Cefuroxim e axetil. Will notify if symptoms worsen. 03/13/2011 Appointment: Lucy Willson WPtel: [address] [place] [address] ACUTE ILLNESS 03/13/2011 Patient Education: Patient Medication Summary Completed 03/13/2011 Visit Plan: Continue brace for 2-4 more weeks May exercise to point of discomfort then stop 11/30/2010 Appointment: Almaz Enriquez WPtel: [address] [place] [address] FOLLOW UP 11/30/2010 Patient Education: Patient Medication Summary Completed 11/30/2010 Visit Plan: Continue aircast and ad d Vimovo po BID 11/02/2010 Appointment: Almaz Enriquez WPtel: [address] [place] [address] ER Follow UP 11/02/2010 Patient Education: Patient Medication Summary Completed 11/02/2010 Appointment: Almaz Enriquez WPtel: [address] [place] [address] UA 08/01/2010 Patient Education: Patient Medication Summary Completed 08/01/2010 Visit Plan: ER visit Jul 16 Starte d Flagyl yesterday. Should finish it on 03 of August. nasal spray. Singulair samples given. Pt will seek re-eval if symptoms worsen. Phoned in codeine/guif cough syrup. ([facility]) 07/25/2010 Appointment: Lucy Willson WPtel: [address] [place] [address] ACUTE ILLNESS 07/25/2010 Patient Education: Patient Medication Summary Completed 07/25/2010 Visit Plan: Supportive care. Rest, Fluids, Tylenol/Motrin prn fever or bodyaches. Notify if worsening symptoms. 01/02/2010 Appointment: Almaz Enriquez WPtel: [address] [place] [address] ACUTE ILLNESS 01/02/2010 Patient Education: Patient Medication Summary Completed 01/02/2010 Referral: Cyrus Min WPtel: [address] [address] [place] Referral Appointment Requested Referral: Cyrus Min WPtel: [address] [address] [place] Referral Initiated Referral: Terrence Mehtatel: [address] [facility] [id number] Mehta will review and call patien to schedule Completed Referral: Judy Prasad [facility] [address] [id number] Referral Initiated Instructions Comment . Is working out rou pratima Will do phenteramine 37.5mg Weight and [...] odeine/guiaf cough syrup. 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
--- OUTSIDE RECORDS SUMMARY | 2020-04-20 21:12 | XMS REPORT | CCD ---
Author Author Fay Enriquez D.O., DO [facility] Address [address] [place] [address] Phone Care Team Providers Care Wood Model Builder Name Role Phone Almaz Enriquez D.O., PP Unavailable CCM Unavailable Summary Purpose Interface Exchange Insurance Providers Payer name Policy type / Coverage type Covered green party ID Effective Begin Date Effective End Date Blue Cross Blue Shield Blue Cross/Bl ue Shield [id number] Unknown Family history Mother Diagnosis Age At Onset Diabetes mellitus Type 1 Unknown Social History Social History Element Codes Description Effective Dates Marital status Unknown D ivorced 09/17/[address]: 548329291 Has never smoked or chewed tobacco 04/25/2011 [...] DS 800 mg-16 0 mg tablet RxNorm: 050792 1 Tablet(s) PO BID 05/25/2019 05/31/2019 Active vbqpwtyt-fmymlikep-j ydrocort 3.5 mg/mL-10,000 unit/mL-1 % ear solution RxNorm: 531968 4 Drop(s) otic (ear) TID 12/17/2018 12/16/2018 Inactive ijshdqps-lclgiemrp-j ydrocort 3.5 mg/mL-10,000 unit/mL-1 % ear solution RxNorm: 884112 4 Drop(s) otic (ear) TID 12/17/2018 12/23/2018 Inactive right ear ofloxacin 0.3 % ear drops RxNorm: 072485 5 Drop(s) otic (ear) BID 12/16/2018 12/16/2018 Inactive right ear amoxicillin 875 mg t ablet RxNorm: 590845 1 Tablet(s) PO BID 12/16/2018 12/25/2018 Inactive Diflucan 200 mg tablet RxNorm: 098815 1 Tablet(s) PO Q72H 12/16/2018 01/04/2019 Inactive Bactrim DS 800 mg-16 0 mg tablet RxNorm: 863986 1 Tablet(s) PO BID 12/02/2018 12/01/2018 Inactive Bactrim DS 800 mg-16 0 mg tablet RxNorm: 063999 1 Tablet(s) PO BID 12/02/2018 12/08/2018 Inactive Protonix 40 mg table t,delayed release RxNorm: 967600 1 Tablet(s) PO QD 09/23/2018 12/21/2018 In active Protonix 40 mg table t,delayed release RxNorm: 264544 1 Tablet(s) PO BID 09/18/2018 09/22/2018 In active Voltaren 1 % topical gel RxNorm: 615806 2 Gram(s) TOP QID to right knee 08/28/2018 05/05/2019 In active Diflucan 150 mg tablet RxNorm: 487682 1 Tablet(s) PO Q72H Take one tablet toda y and repeat in 3 days if no improvement. 10/23/2017 08/17/2018 Inactive Diflucan 150 mg tablet RxNorm: 207264 1 Tablet(s) PO Q72H Take one tablet toda y and repeat in 3 days if no improvement. 10/04/2017 10/22/2017 Inactive ofloxacin 0.3 % ear drops RxNorm: 230357 4 Drop(s) OTIC TID fo r 1 week 06/24/2017 08/17/2018 In active Medrol (Scar) 4 mg ta blets in a dose pack RxNorm: 448546 Take as directed 01/18/2017 04/10/2017 In active ketoconazole 2 % top ical cream RxNorm: 515995 Application TOP BID t o lesion x 2 weeks 11/26/2016 01/17/2017 Inactive Protonix 40 mg table t,delayed release RxNorm: 371313 1 TABLET(S) PO QD 10/13/2016 05/05/2019 In active phentermine 37.5 mg tablet RxNorm: 651582 1 Tablet(s) PO QAM 08/23/2016 11/25/2016 Inactive Medrol (Scar) 4 mg ta blets in a dose pack RxNorm: 479173 Take as directed 06/14/2016 08/22/2016 In active Diflucan 150 mg tablet RxNorm: 730289 1 Tablet(s) PO QD . May repeat in 2-3 da ys if needed. 04/10/2016 04/11/2016 Inactive amoxicillin 875 mg t ablet RxNorm: 333190 1 Tablet(s) PO BID 04/10/2016 04/18/2016 Inactive Medrol (Scar) 4 mg ta blets in a dose pack RxNorm: 671048 Take as directed 04/10/2016 04/18/2016 In active Anusol-HC 25 mg supp ository RxNorm: 1545740 1 Suppository RTL BID 06/28/2015 07/11/2015 Inactive Protonix 40 mg table t,delayed release RxNorm: 785655 1 Tablet(s) PO QD 04/27/2015 10/23/2015 In active Contrave 8 mg-90 mg tablet,extended release RxNorm: 8266025 1 Tablet(s) PO QAM f or 1 week then 1 po BID for 1week then 1 in AM and 2 in PM for 1week then 2 po BID 03/29/2015 06/27/2015 Inactive [SAVINGS FOR UNINSURED PATIENTS -- BIN:0 [id number], PCN: [id number], Group: [id number], ID# [id number], Process claim through iTMan, for questions: . THIS IS NOT INSURANCE.] Flonase Allergy Reli ef 50 mcg/actuation nasal spray,suspension RxNorm: 2 [place] NASAL QHS 02/15/2015 03/28/2015 Inactive Carafate 1 gram tablet RxNorm: 481548 1 Tablet(s) PO AC & HS 12/30/2014 06/13/2016 Inactive Diflucan 100 mg tablet RxNorm: 683909 1 Tablet(s) PO QD 09/30/2014 10/06/2014 Inactive metformin ER 500 mg tablet,extended release 24hr RxNorm: 730466 1/2 Tablet(s) PO QD 09/15/2014 12/29/2014 In active metformin ER 500 mg tablet,extended release 24hr RxNorm: 486284 1/2 Tablet(s) PO QD 09/15/2014 09/14/2014 In active Carafate 1 gram tablet RxNorm: 768351 1 Tablet(s) PO AC & HS 07/19/2014 09/16/2014 Inactive Diflucan 100 mg tablet RxNorm: 431644 1 Tablet(s) PO QD 12/28/2013 01/03/2014 Inactive amoxicillin 875 mg t ablet RxNorm: 550489 1 Tablet(s) PO BID 12/25/2013 01/03/2014 Inactive Protonix 40 mg table t,delayed release RxNorm: 749247 1 Tablet(s) PO QD 12/03/2013 07/25/2014 In active Zithromax 250 mg tablet RxNorm: 626081 2 Tablet(s) PO QD 09/15/2013 09/21/2013 Inactive Flagyl 500 mg tablet RxNorm: 646770 1 Tablet(s) PO Q12H 06/12/2013 06/18/2013 Inactive Diflucan 100 mg tablet RxNorm: 211429 1 Tablet(s) PO QD 12/08/2012 12/14/2012 Inactive Diflucan 100 mg tablet RxNorm: 524945 1 Tablet(s) PO QD 12/08/2012 12/07/2012 Inactive azithromycin 250 mg tablet RxNorm: 620001 2 Tablet(s) PO QD ant ibiotic 10/30/2012 11/06/2012 In active Carafate 1 gram Tab RxNorm: 879295 1 Tablet(s) PO AC 05/27/2012 06/11/2013 Inactive MetroCream 0.75 % To pical RxNorm: 830367 Application TOP BID 05/27/2012 06/11/2013 Inactive to face Protonix 40 mg Tab RxNorm: 629101 1 Tablet(s) PO QD 2012 11/15/2012 Inactive Dexilant 60 mg Capsule RxNorm: 179737 1 Capsule(s) PO QD 04/30/2012 05/26/2012 Inactive metformin ER 500 mg 24 hr Tab RxNorm: 238071 1 Tablet(s) PO QAM 04/30/2012 10/29/2012 Inactive tobramycin 0.3 % Eye Drops RxNorm: 400904 1-2 Drop(s) OPH Q4H o ne to two drops in effected eye(s) every four hours for a maximum of 7 days. If no improvement in 1-2 days need eval 02/15/2012 02/19/2012 Inactive amoxicillin 875 mg t ablet RxNorm: 675145 1 Tablet(s) PO BID 10/19/2011 10/28/2011 Inactive Protonix 40 mg Tab RxNorm: 265516 1 Tablet(s) PO QD 04/11/2011 10/07/2011 Inactive cefuroxime axetil 50 0 mg Tab RxNorm: 507236 1 Tablet(s) PO BID 03/13/2011 03/22/2011 Inactive Ibuprofen 600 mg Tab RxNorm: 392414 1 Tablet(s) PO TID prn pain 04/26/2010 06/24/2010 Inactive Levapak 750 mg Tablet RxNorm: 1 Tablet(s) PO QD 01/02/2010 01/06/2010 Inactive Children's Multivita mins with Iron chewable tablet RxNorm: 1 Tablet(s) PO QD No Start Date Active Cortisporin otic (ear) RxNorm: 44354 otic (ear) No Start Date 12/16/2018 Inactive Sprix 15.75 mg/spray Nasal [place] RxNorm: 4854921 1 [place] NASAL QID ea ch nostril--for pain for 5 days No Start Date 01/07/2012 Inactive Promethazine-Codeine 6.25 mg-10 mg/5 mL Syrup RxNorm: 844881 1-2 Teaspoon(s) PO Q4 H prn cough No Start Date 04/10/2011 Inactive metformin ER 500 mg 24 hr Tab RxNorm: 441298 1/2 Tablet(s) PO QAM No Start Date 04/29/2012 Inactive metformin ER 500 mg 24 hr tablet,extended release RxNorm: 815160 1/2 Tablet(s) PO QD No Start Date 12/27/2012 Inactive Protonix 40 mg table t,delayed release RxNorm: 092917 1 Tablet(s) PO QD No Start Date 12/02/2013 Inactive Carafate 1 gram Tab RxNorm: 067647 1 Tablet(s) PO AC No Start Date 05/26/2012 Inactive Flonase 50 mcg/Actua tion Nasal [place] RxNorm: 0637129 1 [place] NASAL BID No Start Date 04/10/2011 Inactive Protonix 40 mg table t,delayed release RxNorm: 333507 1 Tablet(s) PO BID No Start Date 12/29/2014 Inactive Protonix 40 mg Tab RxNorm: 754289 1 Tablet(s) PO QD No Start Date 07/20/2013 Inactive Dexilant 60 mg capsu le, delayed release RxNorm: 913038 1 Capsule(s) PO QD No Start Date 06/23/2017 Inactive Diflucan 150 mg tablet RxNorm: 825595 1 Tablet(s) PO Q72H Take one tablet toda y and repeat in 3 days if no improvement. No Start Date 10/03/2017 Inactive Protonix 40 mg table t,delayed release RxNorm: 579350 1 Tablet(s) PO QD No Start Date 04/26/2015 Inactive MetroCream 0.75 % To pical RxNorm: 544830 Application TOP BID No Start Date 05/26/2012 Inactive to face Zithromax Z-Scar 250 mg Tab RxNorm: 850529 1 Tablet(s) PO QD No Start Date 09/16/2011 Inactive as directed Protonix 40 mg table t,delayed release RxNorm: 343235 1 Tablet(s) PO BID No Start Date [...] Item Code Result Date THYROID STIMULATING HORMONE 33105 TSH 1.360 uIU/ML 5 COMPREHENSIVE METABOLIC 25257 AST 12 U/L 10/03/2015 COMPREHENSIVE METABOLIC 41551 ALT 9 IU/L 10/03/2015 COMPREHENSIVE METABOLIC 73771 BUN 10 MG/DL 10/03/2015 COMPREHENSIVE METABOLIC 50340 ALBUMIN 4.3 GM/DL 10/03/2015 COMPREHENSIVE METABOLIC 28818 CHLORIDE 104 MMOL/L 10/03/2015 COMPREHENSIVE METABOLIC 59207 BILI TOT 0.3 MG/DL 10/03/2015 COMPREHENSIVE METABOLIC 06489 ALK PHOS 34 U/L 10/03/2015 COMPREHENSIVE METABOLIC 46577 SODIUM 137 MMOL/L 10/03/2015 COMPREHENSIVE METABOLIC 43119 CREATININE 0.77 MG/DL 10/03/2015 COMPREHENSIVE METABOLIC 26577 CALCIUM 9.6 MG/DL 10/03/2015 COMPREHENSIVE METABOLIC 39558 POTASSIUM 4.1 MMOL/L 10/03/2015 COMPREHENSIVE METABOLIC 90342 PROT TOT 7.1 GM/DL 10/03/2015 COMPREHENSIVE METABOLIC 58925 Glucose 92 MG/DL 10/03/2015 COMPREHENSIVE METABOLIC 82739 BICARB 27 MMOL/L 10/03/2015 COMPREHENSIVE METABOLIC 40571 ANION GAP 6 MEQ/L 10/03/2015 LIPID GROUP [address] 52 MG/DL 10/03/2015 LIPID GROUP 61552 TRIG 78 MG/DL 10/03/2015 LIPID GROUP 66448 TEST L DL 114 MG/DL 10/03/2015 LIPID GROUP 82268 CHOL 182 MG/DL 10/03/2015 LIPID GROUP 46902 RCHOL/ HDL 3.50 RATIO 10/03/2015 LIPID GROUP 32110 NON-HD L CH 130 MG/DL 10/03/2015 GFR CALC 9717241 GFR AA >60 ML/MIN 10/03/2015 GFR CALC 7744976 GFR NON -AA >60 ML/MIN 10/03/2015 COMPLETE BLOOD COUNT 2041944 WBC 4.9 10e9/L 10/03/2015 COMPLETE BLOOD COUNT 8905917 RBC 4.49 10e12/L 5 COMPLETE BLOOD COUNT 8780198 HGB 11.3 g/dL 10/03/2015 COMPLETE BLOOD COUNT 6667659 HCT DET 34.7 % 10/03/2015 COMPLETE BLOOD COUNT 0410765 MCV 77.3 fL 10/03/2015 COMPLETE BLOOD COUNT 6823029 MCH 25.2 pg 10/03/2015 COMPLETE BLOOD COUNT 2772334 MCHC 32.6 g/dL 10/03/2015 COMPLETE BLOOD COUNT 2987299 PLT 314 10e9/L 10/03/2015 COMPLETE BLOOD COUNT 5750179 MPV 10.4 fL 10/03/2015 COMPLETE BLOOD COUNT 6113408 ALEXX % 41.0 % 10/03/2015 COMPLETE BLOOD COUNT 1825392 LY % 47.7 % 10/03/2015 COMPLETE BLOOD COUNT 8633363 MON % 8.4 % 10/03/2015 COMPLETE BLOOD COUNT 6322293 EOS % 2.7 % 10/03/2015 COMPLETE BLOOD COUNT 3102218 BASO % 0.2 % 10/03/2015 COMPLETE BLOOD COUNT 5097089 RDW 14.5 % 10/03/2015 COMPLETE BLOOD COUNT 8026317 ABS ALEXX 2.01 10e9/L 10/03/2015 COMPLETE BLOOD COUNT 4076533 ABS LYMPH 2.34 10e9/L 10/03/2015 COMPLETE BLOOD COUNT 1230979 ABS MONO 0.41 10e9/L 10/03/2015 COMPLETE BLOOD COUNT 3549469 ABS EOS 0.13 10e9/L 10/03/2015 COMPLETE BLOOD COUNT 8822813 ABS BASO 0.01 10e9/L 10/03/2015 COMPLETE BLOOD COUNT 8714166 RDW-SD 39.6 fL 10/03/2015 FREE T4 77508 FREE T4 1.08 NG/DL 10/03/2015 GFR CALC 4266826 GFR AA >60 ML/MIN 12/25/2012 GFR CALC 4763696 GFR NON -AA >60 ML/MIN 12/25/2012 INSULIN SERUM 62591 INSU BRITT 5.0 mU/L 12/25/2012 BASIC METABOLIC PANEL 87334 Glucose 82 MG/DL 12/25/2012 BASIC METABOLIC PANEL 73312 CREATININE 0.83 MG/DL 12/25/2012 BASIC METABOLIC PANEL 52504 BUN 9 MG/DL 12/25/2012 BASIC METABOLIC PANEL 89008 SODIUM 139 MMOL/L 12/25/2012 BASIC METABOLIC PANEL 48851 BICARB 26 MMOL/L 12/25/2012 BASIC METABOLIC PANEL 80147 POTASSIUM 4.3 MMOL/L 12/25/2012 BASIC METABOLIC PANEL 61432 ANION GAP 8 MEQ/L 12/25/2012 BASIC METABOLIC PANEL 30581 CHLORIDE 105 MMOL/L 12/25/2012 BASIC METABOLIC PANEL 06476 CALCIUM 9.6 MG/DL 12/25/2012 GFR CALC 6604417 GFR AA >60 ML/MIN 08/27/2012 GFR CALC 6719032 GFR NON -AA >60 ML/MIN 08/27/2012 COMPREHENSIVE METABOLIC 86738 AST 16 U/L 08/27/2012 COMPREHENSIVE METABOLIC 83694 ALT 11 IU/L 08/27/2012 COMPREHENSIVE METABOLIC 18151 BUN 9 MG/DL 08/27/2012 COMPREHENSIVE METABOLIC 81038 ALBUMIN 4.1 GM/DL 08/27/2012 COMPREHENSIVE METABOLIC 64512 CHLORIDE 106 MMOL/L 08/27/2012 COMPREHENSIVE METABOLIC 25298 BILI TOT 0.2 MG/DL 08/27/2012 COMPREHENSIVE METABOLIC 51388 ALK PHOS 35 U/L 08/27/2012 COMPREHENSIVE METABOLIC 35884 SODIUM 137 MMOL/L 08/27/2012 COMPREHENSIVE METABOLIC 74445 CREATININE 0.80 MG/DL 08/27/2012 COMPREHENSIVE METABOLIC 91495 CALCIUM 9.2 MG/DL 08/27/2012 COMPREHENSIVE METABOLIC 71017 POTASSIUM 4.5 MMOL/L 08/27/2012 COMPREHENSIVE METABOLIC 14080 PROT TOT 6.9 GM/DL 08/27/2012 COMPREHENSIVE METABOLIC 04468 Glucose 92 MG/DL 08/27/2012 COMPREHENSIVE METABOLIC 90160 BICARB 25 MMOL/L 08/27/2012 COMPREHENSIVE METABOLIC 12332 ANION GAP 6 MEQ/L 08/27/2012 INSULIN SERUM 63863 INSU BRITT 10.6 mU/L 08/27/2012 GFR CALC 3865360 GFR AA >60 ML/MIN 04/29/2012 GFR CALC 6619343 GFR NON -AA >60 ML/MIN 04/29/2012 GLYCOSYLATED HEMOGLOBIN TEST 41246 A1C HPLC 15139-8 5.6 % 04/29/2012 COMPREHENSIVE METABOLIC 48394 AST 14 U/L 04/29/2012 COMPREHENSIVE METABOLIC 68821 ALT 9 IU/L 04/29/2012 COMPREHENSIVE METABOLIC 58124 BUN 11 MG/DL 04/29/2012 COMPREHENSIVE METABOLIC 76514 ALBUMIN 4.4 GM/DL 04/29/2012 COMPREHENSIVE METABOLIC 64242 CHLORIDE 105 MMOL/L 04/29/2012 COMPREHENSIVE METABOLIC 15483 BILI TOT 0.2 MG/DL 04/29/2012 COMPREHENSIVE METABOLIC 30507 ALK PHOS 36 U/L 04/29/2012 COMPREHENSIVE METABOLIC 35057 SODIUM 139 MMOL/L 04/29/2012 COMPREHENSIVE METABOLIC 61413 CREATININE 0.80 MG/DL 04/29/2012 COMPREHENSIVE METABOLIC 84579 CALCIUM 9.5 MG/DL 04/29/2012 COMPREHENSIVE METABOLIC 59460 POTASSIUM 4.4 MMOL/L 04/29/2012 COMPREHENSIVE METABOLIC 72976 PROT TOT 6.6 GM/DL 04/29/2012 COMPREHENSIVE METABOLIC 43840 Glucose 81 MG/DL 04/29/2012 COMPREHENSIVE METABOLIC 78576 BICARB 26 MMOL/L 04/29/2012 COMPREHENSIVE METABOLIC 77108 ANION GAP 8 MEQ/L 04/29/2012 INSULIN SERUM 57281 INSU BRITT 28.2 mU/L 12/26/2011 COMPREHENSIVE METABOLIC 67375 AST 19 U/L 12/25/2011 COMPREHENSIVE METABOLIC 41794 ALT 15 IU/L 12/25/2011 COMPREHENSIVE METABOLIC 40877 BUN 8 MG/DL 12/25/2011 COMPREHENSIVE METABOLIC 87877 ALBUMIN 4.6 GM/DL 12/25/2011 COMPREHENSIVE METABOLIC 67955 CHLORIDE 105 MMOL/L 12/25/2011 COMPREHENSIVE METABOLIC 23711 BILI TOT 0.4 MG/DL 12/25/2011 COMPREHENSIVE METABOLIC 81307 ALK PHOS 38 U/L 12/25/2011 COMPREHENSIVE METABOLIC 93299 SODIUM 141 MMOL/L 12/25/2011 COMPREHENSIVE METABOLIC 85898 CREATININE 0.74 MG/DL 12/25/2011 COMPREHENSIVE METABOLIC 15555 CALCIUM 9.4 MG/DL 12/25/2011 COMPREHENSIVE METABOLIC 96578 POTASSIUM 4.1 MMOL/L 12/25/2011 COMPREHENSIVE METABOLIC 11644 PROT TOT 7.6 GM/DL 12/25/2011 COMPREHENSIVE METABOLIC 29349 Glucose 53 MG/DL 12/25/2011 COMPREHENSIVE METABOLIC 84263 BICARB 25 MMOL/L 12/25/2011 COMPREHENSIVE METABOLIC 39738 ANION GAP 11 MEQ/L 12/25/2011 COMPLETE BLOOD COUNT 70954 WBC 3.7 10e9/L 12/25/2011 COMPLETE BLOOD COUNT 77059 RBC 4.53 10e12/L 2 COMPLETE BLOOD COUNT 12123 HGB 11.4 g/dL 12/25/2011 COMPLETE BLOOD COUNT 56945 HCT DET 35.4 % 12/25/2011 COMPLETE BLOOD COUNT 63408 MCV 78.1 fL 12/25/2011 COMPLETE BLOOD COUNT 29147 MCH 25.2 pg 12/25/2011 COMPLETE BLOOD COUNT 46490 MCHC 32.2 g/dL 12/25/2011 COMPLETE BLOOD COUNT 93213 PLT 327 10e9/L 12/25/2011 COMPLETE BLOOD COUNT 19852 MPV 10.9 fL 12/25/2011 COMPLETE BLOOD COUNT 45854 ALEXX % 30.9 % 12/25/2011 COMPLETE BLOOD COUNT 52840 LY % 57.0 % 12/25/2011 COMPLETE BLOOD COUNT 50744 MON % 9.1 % 12/25/2011 COMPLETE BLOOD COUNT 11109 EOS % 2.7 % 12/25/2011 COMPLETE BLOOD COUNT 24909 BASO % 0.3 % 12/25/2011 COMPLETE BLOOD COUNT 73276 RDW 14.0 % 12/25/2011 COMPLETE BLOOD COUNT 88642 ABS ALEXX 1.14 10e9/L 12/25/2011 COMPLETE BLOOD COUNT 04885 ABS LYMPH 2.11 10e9/L 12/25/2011 COMPLETE BLOOD COUNT 78250 ABS MONO 0.34 10e9/L 12/25/2011 COMPLETE BLOOD COUNT 40588 ABS EOS 0.10 10e9/L 12/25/2011 COMPLETE BLOOD COUNT 29470 ABS BASO 0.01 10e9/L 12/25/2011 COMPLETE BLOOD COUNT 74495 RDW-SD 39.0 fL 12/25/2011 GFR CALC 5736695 GFR AA >60 ML/MIN 12/25/2011 GFR CALC 2210421 GFR NON -AA >60 ML/MIN 12/25/2011 AMYLASE 27259 AMYLASE 63 IU/L 05/31/2011 GFR CALC 8753735 GFR AA >60 ML/MIN 05/31/2011 GFR CALC 0859456 GFR NON -AA >60 ML/MIN 05/31/2011 COMPLETE BLOOD COUNT 48446 WBC 5.0 10e9/L 05/31/2011 COMPLETE BLOOD COUNT 80845 RBC 4.56 10e12/L 1 COMPLETE BLOOD COUNT 64574 HGB 11.6 g/dL 05/31/2011 COMPLETE BLOOD COUNT 69821 HCT DET 35.1 % 05/31/2011 COMPLETE BLOOD COUNT 83645 MCV 77.0 fL 05/31/2011 COMPLETE BLOOD COUNT 74881 MCH 25.4 pg 05/31/2011 COMPLETE BLOOD COUNT 60058 MCHC 33.0 g/dL 05/31/2011 COMPLETE BLOOD COUNT 54269 PLT 313 10e9/L 05/31/2011 COMPLETE BLOOD COUNT 93407 MPV 11.0 fL 05/31/2011 COMPLETE BLOOD COUNT 04474 ALEXX % 37.7 % 05/31/2011 COMPLETE BLOOD COUNT 01314 LY % 49.1 % 05/31/2011 COMPLETE BLOOD COUNT 60673 MON % 10.4 % 05/31/2011 COMPLETE BLOOD COUNT 32937 EOS % 2.6 % 05/31/2011 COMPLETE BLOOD COUNT 08858 BASO % 0.2 % 05/31/2011 COMPLETE BLOOD COUNT 55201 RDW 13.7 % 05/31/2011 COMPLETE BLOOD COUNT 69781 ABS ALEXX 1.89 10e9/L 05/31/2011 COMPLETE BLOOD COUNT 51063 ABS LYMPH 2.46 10e9/L 05/31/2011 COMPLETE BLOOD COUNT 20464 ABS MONO 0.52 10e9/L 05/31/2011 COMPLETE BLOOD COUNT 42941 ABS EOS 0.13 10e9/L 05/31/2011 COMPLETE BLOOD COUNT 93954 ABS BASO 0.01 10e9/L 05/31/2011 COMPLETE BLOOD COUNT 53937 RDW-SD 37.4 fL 05/31/2011 COMPREHENSIVE METABOLIC 36642 AST 16 U/L 05/31/2011 COMPREHENSIVE METABOLIC 74263 ALT 10 IU/L 05/31/2011 COMPREHENSIVE METABOLIC 91524 BUN 9 MG/DL 05/31/2011 COMPREHENSIVE METABOLIC 03453 ALBUMIN 4.4 GM/DL 05/31/2011 COMPREHENSIVE METABOLIC 94509 CHLORIDE 102 MMOL/L 05/31/2011 COMPREHENSIVE METABOLIC 36602 BILI TOT 0.3 MG/DL 05/31/2011 COMPREHENSIVE METABOLIC 08901 ALK PHOS 36 U/L 05/31/2011 COMPREHENSIVE METABOLIC 51070 SODIUM 138 MMOL/L 05/31/2011 COMPREHENSIVE METABOLIC 65397 CREATININE 0.72 MG/DL 05/31/2011 COMPREHENSIVE METABOLIC 51442 CALCIUM 9.6 MG/DL 05/31/2011 COMPREHENSIVE METABOLIC 65411 POTASSIUM 3.9 MMOL/L 05/31/2011 COMPREHENSIVE METABOLIC 44448 PROT TOT 7.2 GM/DL 05/31/2011 COMPREHENSIVE METABOLIC 03964 Glucose 82 MG/DL 05/31/2011 COMPREHENSIVE METABOLIC 02813 BICARB 29 MMOL/L 05/31/2011 COMPREHENSIVE METABOLIC 96740 ANION GAP 7 MEQ/L 05/31/2011 LIPASE 33082 LIPASE 11 IU/L 05/31/2011 Review of Systems [...] Date URINE CULTURE/ COLON Y COUNT CPT-4: 96584 05/25/2019 STREP A ASSAY W/OPTIC CPT-4: 69708 12/16/2018 URINE CULTURE/ COLON Y COUNT CPT-4: 45310 12/02/2018 URINALYSIS NONAUTO W /O SCOPE CPT-4: 25813 10/21/2017 URINE CULTURE/ COLON Y COUNT CPT-4: 17499 10/21/2017 STREP A ASSAY W/OPTIC CPT-4: 56070 11/22/2015 ROUTINE VENIPUNCTURE CPT-4: 98830 10/03/2015 ASSAY OF FREE THYROXINE CPT-4: 44066 10/03/2015 ASSAY THYROID STIM H ORMONE CPT-4: 49888 10/03/2015 COMPREHEN METABOLIC PANEL CPT-4: 01609 10/03/2015 COMPLETE CBC W/AUTO DIFF WBC CPT-4: 07178 10/03/2015 LIPID PANEL CPT-4: 93344 10/03/2015 URINALYSIS NONAUTO W /O SCOPE CPT-4: 34637 08/01/2015 URINE CULTURE/ COLON Y COUNT CPT-4: 87716 08/01/2015 STREP A ASSAY W/OPTIC CPT-4: 06115 12/25/2013 URINALYSIS NONAUTO W /O SCOPE CPT-4: 25957 12/17/2013 THER/PROPH/DIAG INJ SC/IM CPT-4: 92356 07/21/2013 METHYLPREDNISOLONE 4 0 MG INJ CPT-4: J1030 07/21/2013 TRIAMCINOLONE ACET I [place] NOS CPT-4: J3301 07/21/2013 C WET DC CPT-4: 15289 06/12/2013 ROUTINE VENIPUNCTURE CPT-4: 54690 12/25/2012 METABOLIC PANEL TOTA L CA CPT-4: 38121 12/25/2012 ASSAY OF INSULIN CPT-4: 53780 12/25/2012 ROUTINE VENIPUNCTURE CPT-4: 04258 08/27/2012 COMPREHEN METABOLIC PANEL CPT-4: 52044 08/27/2012 ASSAY OF INSULIN CPT-4: 96007 08/27/2012 ROUTINE VENIPUNCTURE CPT-4: 60822 04/29/2012 COMPREHEN METABOLIC PANEL CPT-4: 70687 04/29/2012 A1C GLYCOSYLATED HEM OGLOBIN TEST CPT-4: 64121 04/29/2012 COMPLETE CBC W/AUTO DIFF WBC CPT-4: 78516 12/25/2011 COMPREHEN METABOLIC PANEL CPT-4: 02991 12/25/2011 ROUTINE VENIPUNCTURE CPT-4: 99613 12/25/2011 ASSAY OF INSULIN CPT-4: 28779 12/25/2011 THER/PROPH/DIAG INJ SC/IM CPT-4: 71412 09/17/2011 KETOROLAC TROMETHAMI NE INJ CPT-4: J1885 09/17/2011 ROUTINE VENIPUNCTURE CPT-4: 79896 05/31/2011 COMPREHEN METABOLIC PANEL CPT-4: 21818 05/31/2011 COMPLETE CBC W/AUTO DIFF WBC CPT-4: 28301 05/31/2011 ASSAY OF LIPASE CPT-4: 88412 05/31/2011 ASSAY OF AMYLASE CPT-4: 74969 05/31/2011 URINALYSIS NONAUTO W /O SCOPE CPT-4: 82641 08/01/2010 URINE CULTURE/ COLON Y COUNT CPT-4: 34835 08/01/2010 Vital Signs Date Vital 05/25/2019 Blood [...] 1: 136/86 Code: 8480-6 BMI: 33.5 Code: 57995-4 Heart Rate 1: 92 bpm Height: 5'2" Respiratory Rate: 20 bpm Temperature: 37.1 (C ) / 98.8 (F) Weight: 180 lbs 08/18/2018 Blood Pressure 1: 136/78 Code: 8480-6 Heart Rate 1: 91 bpm Respiratory Rate: 18 bpm SpO2: 99% Temperature: 36.4 (C ) / 97.5 (F) Weight: 183 lbs 06/24/2017 Blood Pressure 1: 140/80 Code: 8480-6 BMI: 34.2 Code: 25051-2 Heart Rate 1: 76 bpm Height: 5'2" Respiratory Rate: 20 bpm Temperature: 36.7 (C ) / 98.0 (F) Weight: 184 lbs 04/11/2017 Blood Pressure 1: 132/86 Code: 8480-6 Heart Rate 1: 84 bpm Respiratory Rate: 20 bpm SpO2: 97% Temperature: 36.6 (C ) / 97.8 (F) Weight: 181 lbs 01/18/2017 Blood Pressure 1: 122/80 Code: 8480-6 BMI: 31.6 Code: 77216-8 Heart Rate 1: 76 bpm Height: 5'2" Respiratory Rate: 20 bpm SpO2: 96% Temperature: 36.7 (C ) / 98.1 (F) Weight: 170 lbs 11/26/2016 Blood Pressure 1: 128/80 Code: 8480-6 BMI: 31.0 Code: 45645-8 Heart Rate 1: 84 bpm Height: 5'2" Respiratory Rate: 20 bpm SpO2: 98% Temperature: 36.8 (C ) / 98.2 (F) Weight: 167 lbs 10/25/2016 Blood Pressure 1: 118/76 Code: 8480-6 BMI: 30.9 Code: 62793-0 Heart Rate 1: 72 bpm Height: 5'2" Weight: 166 lbs 09/21/2016 Blood Pressure 1: 124/70 Code: 8480-6 BMI: 31.0 Code: 61125-7 Heart Rate 1: 80 bpm Height: 5'2" Weight: 167 lbs 08/23/2016 Blood Pressure 1: 138/82 Code: 8480-6 BMI: 31.6 Code: 41117-2 Heart Rate 1: 64 bpm Height: 5'2" [...] 1: 140/78 Code: 8480-6 BMI: 33.5 Code: 67009-5 Heart Rate 1: 82 bpm Height: 5'2" Respiratory Rate: 22 bpm SpO2: 97% Temperature: 36.3 (C ) / 97.4 (F) Weight: 180 lbs 11/22/2015 Blood Pressure 1: 110/68 Code: 8480-6 BMI: 33.1 Code: 24943-2 Heart Rate 1: 80 bpm Height: 5'2" Respiratory Rate: 20 bpm Temperature: 36.8 (C ) / 98.3 (F) Weight: 178 lbs 06/28/2015 Blood Pressure 1: 124/70 Code: 8480-6 BMI: 31.0 Code: 12796-9 Heart Rate 1: 80 bpm Height: 5'2" Respiratory Rate: 20 bpm Temperature: 36.8 (C ) / 98.3 (F) Weight: 167 lbs 05/02/2015 Blood Pressure 1: 122/76 Code: 8480-6 BMI: 31.4 Code: 75123-6 Heart Rate 1: 78 bpm Height: 5'2" Respiratory Rate: 20 bpm Temperature: 36.3 (C ) / 97.4 (F) Weight: 169 lbs 03/29/2015 Blood Pressure 1: 126/78 Code: 8480-6 BMI: 30.9 Code: 12028-5 Heart Rate 1: 88 bpm Height: 5'2" Respiratory Rate: 20 bpm Temperature: 37.1 (C ) / 98.7 (F) Weight: 166 lbs 02/15/2015 Blood Pressure 1: 126/78 Code: 8480-6 BMI: 30.5 Code: 42508-5 Heart Rate 1: 76 bpm Height: 5'2" Respiratory Rate: 20 bpm Temperature: 36.6 (C ) / 97.8 (F) Weight: 164 lbs 12/30/2014 Blood Pressure 1: 118/84 Code: 8480-6 BMI: 30.1 Code: 21887-4 Heart Rate 1: 84 bpm Height: 5'2" Respiratory Rate: 20 bpm Temperature: 37.0 (C ) / 98.6 (F) Weight: 162 lbs 09/30/2014 Blood Pressure 1: 132/68 Code: 8480-6 BMI: 30.1 Code: 55499-2 Heart Rate 1: 84 bpm Height: 5'2" Respiratory Rate: 22 bpm Temperature: 36.5 (C ) / 97.7 (F) Weight: 162 lbs 07/19/2014 Blood Pressure 1: 126/78 Code: 8480-6 BMI: 29.7 Code: 91596-1 Heart Rate 1: 72 bpm Height: 5'2" Respiratory Rate: 20 bpm Temperature: 36.8 (C ) / 98.2 (F) Weight: 160 lbs 06/01/2014 Blood Pressure 1: 132/86 Code: 8480-6 BMI: 29.6 Code: 25360-6 Heart Rate 1: 72 bpm Height: 5'2" [...] 1: 122/80 Code: 8480-6 BMI: 29.6 Code: 96812-7 Heart Rate 1: 80 bpm Height: 5'2" Respiratory Rate: 20 bpm Temperature: 36.8 (C ) / 98.3 (F) Weight: 159 lbs 08/14/2013 Blood Pressure 1: 138/82 Code: 8480-6 BMI: 27.5 Code: 90012-5 Heart Rate 1: 66 bpm Height: 5'2" Respiratory Rate: 20 bpm Temperature: 36.5 (C ) / 97.7 (F) Weight: 148 lbs 08/03/2013 Blood Pressure 1: 126/82 Code: 8480-6 BMI: 29.1 Code: 54779-3 Heart Rate 1: 72 bpm Height: 5'1" Respiratory Rate: 20 bpm Temperature: 36.6 (C ) / 97.8 (F) Weight: 154 lbs 07/21/2013 Blood Pressure 1: 124/70 Code: 8480-6 BMI: 28.3 Code: 15928-7 Heart Rate 1: 64 bpm Height: 5'1" Respiratory Rate: 22 bpm Temperature: 36.5 (C ) / 97.7 (F) Weight: 150 lbs 06/12/2013 Blood Pressure 1: 124/78 Code: 8480-6 BMI: 28.6 Code: 98021-7 Heart Rate 1: 88 bpm Height: 5'2" Respiratory Rate: 20 bpm Temperature: 36.9 (C ) / 98.4 (F) Weight: 154 lbs 12/25/2012 Blood Pressure 1: 128/84 Code: 8480-6 BMI: 27.0 Code: 42746-6 Heart Rate 1: 76 bpm Height: 5'2" Respiratory Rate: 20 bpm Temperature: 36.9 (C ) / 98.4 (F) Weight: 145 lbs 10/30/2012 Blood Pressure 1: 122/68 Code: 8480-6 BMI: 28.8 Code: 87710-5 Heart Rate 1: 60 bpm Height: 5'2" Temperature: 36.9 (C ) / 98.5 (F) Weight: 155 lbs 08/28/2012 Blood Pressure 1: 112/80 Code: 8480-6 BMI: 29.7 Code: 44090-3 Heart Rate 1: 72 bpm Height: 5'2" Respiratory Rate: 20 bpm Temperature: 36.9 (C ) / 98.5 (F) Weight: 160 lbs 05/27/2012 Blood Pressure 1: 128/80 Code: 8480-6 BMI: 28.4 Code: 25159-6 Heart Rate 1: 72 bpm Height: 5'2" Respiratory Rate: 20 bpm Temperature: 36.8 (C ) / 98.2 (F) Weight: 153 lbs 04/30/2012 Blood Pressure 1: 116/70 Code: 8480-6 BMI: 28.8 Code: 87245-0 Heart Rate 1: 84 bpm Height: 5'2" Respiratory Rate: 20 bpm Temperature: 36.7 (C ) / 98.1 (F) Weight: 155 lbs 02/18/2012 Blood Pressure 1: 118/64 Code: 8480-6 BMI: 28.4 Code: 15235-1 Heart Rate 1: 68 bpm Height: 5'2" Temperature: 36.3 (C ) / 97.4 (F) Weight: 153 lbs 01/08/2012 Blood Pressure 1: 132/80 Code: 8480-6 BMI: 28.8 Code: 79807-8 Heart Rate 1: 76 bpm Height: 5'2" Respiratory Rate: 20 bpm Temperature: 36.7 (C ) / 98.1 (F) Weight: 155 lbs 10/19/2011 Blood Pressure 1: 102/72 Code: 8480-6 BMI: 27.9 Code: 17461-2 Heart Rate 1: 70 bpm Height: 5'2" Temperature: 36.9 (C ) / 98.5 (F) Weight: 150 lbs 09/17/2011 Blood Pressure 1: 126/72 Code: 8480-6 BMI: 28.3 Code: 47811-9 Heart Rate 1: 84 bpm Height: 5'2" Respiratory Rate: 20 bpm Temperature: 36.7 (C ) / 98.1 (F) Weight: 152 lbs 07/05/2011 Blood Pressure 1: 102/68 Code: 8480-6 Heart Rate 1: 88 bpm Temperature: 36.7 (C) / 98.1 (F) Weight: 145 lbs 05/31/2011 Blood Pressure 1: 126/82 Code: 8480-6 BMI: 27.3 Code: 36306-8 Heart Rate 1: 80 bpm Height: 5'2" [...] Weight: 130 lbs 01/02/2010 BMI: 25.7 Code: 75202-0 Heart Rate 1: 84 bpm Height: 5'2" [...] Encounters Encounter Performer Loca tion Codes Date ([id number]) OFFICE/OUTPA TIENT VISIT EST Diagnosis: Low back pain[ICD10: M54.5] Diagnosis: Personal history of urinary (tract) infections[ICD10: Z87.440] Nikole Damicogodwin ENRIQUEZ [employer] CPT-4: 75205 05/25/2019 ([id number]) OFFICE/OUTPA TIENT VISIT EST Diagnosis: Palpitations[ICD10: R00.2] Almaz ENRIQUEZ [employer] CPT-4: 42953 05/06/2019 OFFICE/OUTPATIENT SIT EST Diagnosis: Other infective otitis externa, right ear[ICD10: H60.391] Diagnosis: Acute serous otitis media, recurrent, right ear[ICD10: H65.04] Elisha ENRIQUEZ [employer] CPT-4: 87638 12/16/2018 ([id number]) NURSE/OUTPAT IENT VISIT EST Diagnosis: Dysuria[ICD10: R30.0] Almaz ENRIQUEZ [employer] CPT-4: 38890 12/02/2018 ([id number]) OFFICE/OUTPA TIENT VISIT EST Diagnosis: Palpitations[ICD10: R00.2] Diagnosis: Abnormal results of thyroid function studies[ICD10: R94.6] Almaz ENRIQUEZ DO [employer] CPT-4: 06175 09/09/2018 ([id number]) OFFICE/OUTPA TIENT VISIT EST Diagnosis: Pain in right knee[ICD10: M25.561] Almaz OWEN DO [employer] CPT-4: 84814 08/28/2018 ([id number]) OFFICE/OUTPA TIENT VISIT EST Diagnosis: Gastro-esophageal reflux disease without esophagitis[ICD10: K21.9] Almaz ENRIQUEZ DO [employer] CPT-4: 42703 08/18/2018 ([id number]) OFFICE/OUTPA TIENT VISIT EST Diagnosis: Other polyuria[ICD10: R35.8] Almaz ENRIQUEZ [employer] CPT-4: 60426 10/21/2017 ([id number]) OFFICE/OUTPA TIENT VISIT EST Diagnosis: Otalgia, left ear[ICD10: H92.02] Diagnosis: Left temporomandibular joint disorder, unspecified[ICD10: M26.602] Almaz ENRIQUEZ [employer] CPT-4: 61695 06/24/2017 OFFICE/OUTPATIENT SIT EST Diagnosis: Insect bite (nonvenomous) of right upper arm, sequela[ICD10: S40.861S] Almaz ENRIQUEZ DO [employer] CPT-4: 66142 04/11/2017 ([id number]) OFFICE/OUTPA TIENT VISIT EST Diagnosis: Other seasonal allergic rhinitis[ICD10: J30.2] Aracelis Mercado ALMAZ ENRIQUEZ [employer] CPT-4: 81295 01/18/2017 ([id number]) OFFICE/OUTPA TIENT VISIT EST Diagnosis: Abnormal weight gain[ICD10: R63.5] Diagnosis: Tinea corporis[ICD10: B35.4] Almaz ENRIQUEZ [employer] CPT-4: 56283 11/26/2016 ([id number]) OFFICE/OUTPA TIENT VISIT EST Diagnosis: Abnormal weight gain[ICD10: R63.5] Almaz WU BlancheKaz NATHAN NDEDanilo [facility] CPT-4: 42010 08/23/2016 ([id number]) OFFICE/OUTPA TIENT VISIT EST Diagnosis: Pain in left knee[ICD10: M25.562] Aracelis Mercado ALMAZ ENRIQUEZ DO [facility] CPT-4: 23509 06/14/2016 OFFICE/OUTPATIENT SIT EST Diagnosis: Other specified disorders of Eustachian tube, left ear[ICD10: H69.82] Radha TalleyCarolinemichaelle CALDERAQUELINE BlancheKza NATHANBRAYDEN JONES [facility] CPT-4: 34659 04/19/2016 ([id number]) OFFICE/OUTPA TIENT VISIT EST Diagnosis: Other specified disorders of Eustachian tube, bilateral[ICD10: H69.83] Diagnosis: Otitis media, unspecified, right ear[ICD10: H66.91] Aracelis Mercado ALMAZ ENRIQUEZ DO [facility] CPT-4: 35528 04/10/2016 OFFICE/OUTPATIENT SIT EST Diagnosis: Acute pharyngitis, unspecified[ICD10: J02.9] Radha TalleySurekha ARROYO DO [facility] CPT-4: 51802 11/22/2015 ([id number]) OFFICE/OUTPA TIENT VISIT EST Diagnosis: Encounter for general adult medical examination without abnormal findings[ICD10: Z00.00] Almaz Price NATHANBRAYDEN JONES [facility] CPT-4: 16384 10/03/2015 ([id number]) OFFICE/OUTPA TIENT VISIT EST Diagnosis: Myalgia[ICD10: M79.1] Diagnosis: Unspecified abdominal pain[ICD10: R10.9] Almaz Price NATHAN NDEDanilo [employer] [facility] CPT-4: 98628 08/01/2015 ([id number]) OFFICE/OUTPA TIENT VISIT EST Diagnosis: Proctalgia[ICD9: 569.42] Diagnosis: Rectal bleeding[ICD9: 569.3] Almaz Price NATHANNDER DO [facility] CPT-4: 33222 06/28/2015 ([id number]) OFFICE/OUTPA TIENT VISIT EST Diagnosis: Right calf pain[ICD9: 729.5] Za Barajas ALMAZ BlancheKaz ZOE [facility] CPT-4: 19823 05/02/2015 ([id number]) OFFICE/OUTPA TIENT VISIT EST Diagnosis: Flank pain[ICD9: 789.00] Diagnosis: MALAISE AND FATIGUE[ICD9: 780.79] Diagnosis: ABNORMAL WEIGHT GAIN[ICD9: 783.1] Almaz Zoe MAGANALINE BlancheKaz NATHAN OWEN [facility] CPT-4: 84404 03/29/2015 ([id number]) OFFICE/OUTPA TIENT VISIT EST Diagnosis: ALLERGIC RHINITIS[ICD9: 477.9] Almaz Nathanbrayden ALMAZ BlancheKaz BRITNIGLADYS [facility] CPT-4: 27938 02/15/2015 ([id number]) OFFICE/OUTPA TIENT VISIT EST Diagnosis: GERD[ICD9: 530.81] Almaz Nathanlevigladys ALMAZ BlancheKaz BRITNIGLADYS [facility] CPT-4: 84440 12/30/2014 ([id number]) OFFICE/OUTPA TIENT VISIT EST Diagnosis: Tenosynovitis, de Quervain[ICD9: 727.04] Diagnosis: Paresthesia of hand[ICD9: 782.0] Almaz Nathanbrayden AL[facility]Z [facility]ancheKaz [facility] CPT-[facility]: 68717 09/30/2014 ([id number]) OFFICE/OUTPA TIENT VISIT EST Diagnosis: ABDOMINAL PAIN[ICD9: 789.00] Diagnosis: GERD[ICD9: 530.81] Diagnosis: TREMOR NEC[ICD9: 333.1] Almaz Nathanlevigladys ALMAZ BlancheKaz ZOE [facility] CPT-4: 66691 07/19/2014 ([id number]) OFFICE/OUTPA TIENT VISIT EST Diagnosis: PAIN, LOWER BACK[ICD9: 724.2] Diagnosis: SPASM OF MUSCLE[ICD9: 728.85] Almaz Rydergladys ALMAZ Price BRITNIGLADYS [facility] CPT-4: 97895 06/01/2014 OFFICE/OUTPATIENT SIT EST Diagnosis: TONSILLITIS, ACUTE[ICD9: 463] Diagnosis: STREPTOCOCCAL INFECTION GROUP A[ICD9: 041.01] Radha WU S. O RENDER [facility] CPT-4: 67270 12/25/2013 OFFICE/OUTPATIENT SIT EST Diagnosis: DYSURIA[ICD9: 788.1] Radha ENRIQUEZ [facility] CPT-4: 97069 12/17/2013 ([id number]) OFFICE/OUTPA TIENT VISIT EST Diagnosis: BRONCHITIS, ACUTE[ICD9: 466.0] Almaz Nathanlevigladys ALMAZ BlancheKaz [facility] CPT-[facility]: 18245 09/15/2013 OFFICE/OUTPATIENT SIT EST Diagnosis: URI, ACUTE[ICD9: 465.9] Za PoeAdolfo ALMAZ BlancheKaz [facility] CPT-[facility]: 98341 08/14/2013 ([id number]) OFFICE/OUTPA TIENT VISIT EST Diagnosis: PALPITATIONS[ICD9: 785.1] Almaz Nathanlevigladys MAGANAALMAZ BlancheKaz [facility] CPT-[facility]: 78014 08/03/2013 OFFICE/OUTPATIENT SIT EST Diagnosis: SINUSITIS, ACUTE[ICD9: 461.9] Diagnosis: Dysfunction of left Eustachian tube[ICD9: 381.81] Radha WU S. O RENDER [facility] CPT-4: 99379 07/21/2013 OFFICE/OUTPATIENT SIT EST Diagnosis: Vaginal disorder[ICD9: 623.9] Za PoeAdolfo CALDERAQUELINE BlancheKaz [facility] CPT-[facility]: 36827 06/12/2013 OFFICE/OUTPATIENT SIT EST Diagnosis: HYPOGLYCEMIA NEC[ICD9: 251.1] Diagnosis: GERD[ICD9: 530.81] Almaz Rydergladys ALMAZ BlancheKaz [facility] CPT-[facility]: 06898 12/25/2012 OFFICE/OUTPATIENT SIT EST Diagnosis: COUGH[ICD9: 786.2] Diagnosis: PHARYNGITIS, ACUTE[ICD9: 462] Almaz Rydergladys ALMAZ BlancheKaz [facility] CPT-[facility]: 76684 10/30/2012 OFFICE/OUTPATIENT SIT EST Diagnosis: HYPOGLYCEMIA[ICD9: 251.2] Diagnosis: GERD[ICD9: 530.81] Diagnosis: Fibroid tumor[ICD9: 218.9] Almaz WU BlancheKaz [facility] CPT-[facility]: 37285 08/28/2012 ([id number]) OFFICE/OUTPA TIENT VISIT EST Diagnosis: Hyperglycemia[ICD9: 790.29] Almaz ENRIQUEZ DO [facility] CPT-4: 00729 08/27/2012 ([id number]) OFFICE/OUTPA TIENT VISIT EST Diagnosis: GERD[ICD9: 530.81] Almaz ENRIQUEZ DO [facility] CPT-4: 73111 05/27/2012 ([id number]) OFFICE/OUTPA TIENT VISIT EST Diagnosis: HYPOGLYCEMIA NEC[ICD9: 251.1] Diagnosis: GERD[ICD9: 530.81] Almaz ENRIQUEZ DO [facility] CPT-4: 18383 04/30/2012 ([id number]) OFFICE/OUTPA TIENT VISIT EST Diagnosis: HYPOGLYCEMIA[ICD9: 251.2] Almaz ENRIQUEZ DO [facility] CPT-4: 91640 04/29/2012 OFFICE/OUTPATIENT SIT EST Diagnosis: CONJUNCTIVITIS NOS[ICD9: 372.30] Almaz ENRIQUEZ DO [facility] CPT-4: 63455 02/18/2012 OFFICE/OUTPATIENT SIT EST Diagnosis: Hyperinsulinemia[ICD9: 251.1] Diagnosis: HYPOGLYCEMIA[ICD9: 251.2] Almaz ENRIQUEZ [facility] CPT-4: 10595 01/08/2012 ([id number]) OFFICE/OUTPA TIENT VISIT EST Diagnosis: Leg cramps[ICD9: 729.82] Almaz ENRIQUEZ DO [facility] CPT-4: 43244 12/25/2011 OFFICE/OUTPATIENT SIT EST Diagnosis: PHARYNGITIS, ACUTE[ICD9: 462] Almaz ENRIQUEZ [facility] CPT-4: 71917 10/19/2011 OFFICE/OUTPATIENT SIT EST Diagnosis: Pyelonephritis[ICD9: 590.80] Diagnosis: Flank pain[ICD9: 789.00] Diagnosis: Recurrent UTI[ICD9: 599.0] Diagnosis: Thoracic back pain[ICD9: 724.1] Almaz ENRIQUEZ DO [facility] CPT-4: 13464 09/17/2011 OFFICE/OUTPATIENT SIT EST Diagnosis: PHARYNGITIS, ACUTE[ICD9: 462] Almaz ENRIQUEZ DO [facility] CPT-4: 16083 07/05/2011 OFFICE/OUTPATIENT SIT EST Diagnosis: GERD[ICD9: 530.81] Diagnosis: ABDOMINAL PAIN[ICD9: 789.00] Almaz RYDERER DO [facility] CPT-4: 27575 05/31/2011 OFFICE/OUTPATIENT SIT EST Almaz NEWBERRY NDER DO [facility] CPT-4: 09397 04/11/2011 ([id number]) OFFICE/OUTPA TIENT VISIT EST Almaz NEWBERRY NDER DO [facility] CPT-4: 73738 03/13/2011 ([id number]) OFFICE/OUTPA TIENT VISIT EST Almaz NEWBERRY NDER DO [facility] CPT-4: 32939 11/30/2010 ([id number]) OFFICE/OUTPA TIENT VISIT, EST Almaz NEWBERRY NDER DO [facility] CPT-4: 64375 11/02/2010 ([id number]) OFFICE/OUTPA TIENT VISIT, EST Lucy NEWBERRYNDER DO [facility] CPT-4: 43480 07/25/2010 ([id number]) OFFICE/OUTPA TIENT VISIT, EST Almaz NEWBERRY NDER DO [facility] CPT-4: 81596 01/02/2010 Plan of Care Planned Activity Notes [...] : R00.2 05/06/2019 Appointment: Almaz Enriquez WPtel: [address] [place] [address] ACUTE ILLNESS 05/06/2019 Visit Diagnosis Plan: Other [...] ICD-10 : H65.04 12/16/2018 Appointment: Elisha Leiva [facility] [employer] [address] ACUTE ILLNESS 12/16/2018 Patient Education: amoxicillin- [employer] Coupon [phone] [email or web address] Completed 12/16/2018 Appointment: Almaz Enriquez WPtel: [address] [place], [place] [phone] UA 12/02/2018 Visit Diagnosis Plan: Palpitations D [...] : R94.6 09/09/2018 Appointment: Almaz Enriquez WPtel: [address] [place] [address] Hospital Follow Up 09/09/2018 Visit Diagnosis Plan: Pain in right knee Discussion: Referral to Dr. Pako Lowry and topical voltaren ICD-9 : 719.46 ICD-10 : M25.561 08/28/2018 Appointment: Almaz Enriquez WPtel: [address] [place] [address] ACUTE ILLNESS 08/28/2018 Care Plan: Referral Order SNOMED-CT : [id number] Pending 08/28/2018 Visit Diagnosis Plan: Gastro-esophageal reflux disease without esophagitis Discussion: Left lower chest pain appear s to be from GI etiology so will resume protonix 40mg po BID for next week and see if resolves, if improved then can go to protonix 40mg po daily ICD-9 : 530.81 ICD-10 : K21.9 08/18/2018 Appointment: Nikole Gabriel [address] [place] [address] ACUTE ILLNESS 08/18/2018 Patient Education: Patient Medication Summary Completed 05/13/2018 Care Plan: MAMMOGRAM SCREENING LOINC : 43437-5 Pending 05/13/2018 Appointment: Almaz Enriquez WPtel: [address] [place] [address] 10/21/2017 Patient Education: Patient Medication Summary Completed [...] : H92.02 06/24/2017 Appointment: Almaz Enriquez WPtel: [address] [place], [place] [phone] ACUTE ILLNESS 06/24/2017 Patient Education: Patient Medication Summary Completed 06/24/2017 Patient Education: Patient Medication Summary Completed 05/14/2017 Visit Diagnosis Plan: Insect bite (nonve nomous) of right upper arm, sequela Discussion: Finish all abx Add Zyrtec 10 mg daily for 10 days ICD-9 : 906.2 ICD-10 : S40.861S 04/11/2017 Appointment: Almaz Enriquez WPtel: [address] [place], [place] [phone] ER Follow UP 04/11/2017 Patient Education: Patient Medication Summary Completed 04/11/2017 Visit Diagnosis Plan: Other seasonal allergic rhinitis Discussion: Add benadryl at bedtime Nasal rinses, steroid nasal spray Vicks and humidifier Monitor for signs of infection Follow up PRN ICD-9 : 477.9 ICD-10 : J30.2 01/18/2017 Appointment: Aracelis Mercado [address] [place], [place] [phone] ACUTE ILLNESS 01/18/2017 Patient Education: Patient Medication Summary Completed 01/18/2017 Visit Diagnosis Plan: Tinea corporis Discussion: Ketoconazole BID for 2 weeks Notify if persist or worsens ICD-9 : 110.5 ICD-10 : B35.4 11/26/2016 Visit Diagnosis Plan: Abnormal weight gain Discussion: Long discussion about diet/exercise/lifestyle change--3month trial ICD-9 : 783.1 ICD-10 : R63.5 11/26/2016 Appointment: Almaz Enriqueztel: [address] [place], [place] [phone] 11/22 confirm~sl FOLLOW UP 11/26/2016 Patient Education: Patient Medication Summary Completed 11/26/2016 Appointment: Almaz Enriqueztel: [address] [place] [phone] WT CHECK 10/25/2016 Patient Education: Patient Medication Summary Completed 10/25/2016 Appointment: Almaz Enriquez WPtel: [address] [place] [address] BP CHECK 09/21/2016 Patient Education: Patient Medication Summary Completed 09/21/2016 Visit Plan: Is working out routinel y Will do phenteramine 37.5mg Weight and BP check next 2 months then fwup in 3mos 08/23/2016 Appointment: Almaz Enriquez WPtel: [address] [place] [address] 08/22 confirmed~sl FOLLOW UP 08/23/2016 Patient Education: Patient Medication Summary Completed 08/23/2016 Patient Education: Patient Medication Summary Completed 06/22/2016 Care Plan: [facility] Pending 06/22/2016 Visit Plan: RICE and rx [...] for xray orders 06/14/2016 Appointment: Aracelis Mercado [address] [place] [address] ACUTE ILLNESS 06/14/2016 Patient Education: Patient Medication Summary Completed 06/14/2016 Referral: Jatinder Ambrose WPtel: [address] [place] [address] Referral Appointment Requested 05/09/2016 Visit Plan: Attempted to use ET pop per with minimal relief Fluticasone nasal spray - 2 sprays each nostril one time daily 04/19/2016 Visit Plan: Attempted to use ET pop per with minimal relief Fluticasone nasal spray - 2 sprays each nostril one time daily 04/19/2016 Appointment: Radha Botello WPtel: [address] [place] [address] 04/18 confirmed~sl ACUTE ILLNESS 04/19/2016 Patient Education: [...] Follow up PRN 04/10/2016 Appointment: Aracelis Mercado [address] [place] [address] ACUTE ILLNESS 04/10/2016 Patient Education: Patient Medication Summary Completed 04/10/2016 Visit Plan: Strep Screen - negative Recommending warm saline gargles and notify if symptoms worsen 11/22/2015 Visit Plan: Strep Screen - negative Recommending warm saline gargles and notify if symptoms worsen 11/22/2015 Visit Plan: Strep Screen - negative Recommending warm saline gargles and notify if symptoms worsen 11/22/2015 Appointment: Radha Botello WPtel: [address] [place] [address] ACUTE ILLNESS 11/22/2015 Patient Education: Patient Medication Summary Completed 11/22/2015 Appointment: Almaz Enriquez WPtel: [address] [place], [place] [phone] 10/03/2015 Patient Education: Patient Medication Summary Completed 10/03/2015 Appointment: Almaz Enriquez WPtel: [address] [place] [address] UA 08/01/2015 Patient Education: Patient Medication Summary Completed 08/01/2015 Visit Plan: Anusol HC supp for 2wee ks Align daily for 2weeks If resolves then will observe as came on after recent GI bug but if persists or comes back will need colonoscopy 06/28/2015 Appointment: Almaz Enriquez WPtel: [address] [place] [address] ACUTE ILLNESS 06/28/2015 Patient Education: Patient Medication Summary Completed 06/28/2015 Appointment: Almaz Enriquez WPtel: [address] [place] [address] 05/27 vm cn FOLLOW UP 05/30/2015 Appointment: Almaz Enriquez WPtel: [address] [place] [address] ACUTE ILLNESS 05/16/2015 Visit Plan: Venous dopple of right leg ordered (tomorrow 10am) Recommended daily EC ASA until results 05/02/2015 Visit Plan: Venous dopple of right leg ordered (tomorrow 10am) Recommended daily EC ASA until results 05/02/2015 Appointment: Za Barajas WPtel: [address] [place] [address] ACUTE ILLNESS 05/02/2015 Patient Education: Patient Medication Summary Completed 05/02/2015 Visit Plan: Zain pulliam pack F wup in 2mos 03/29/2015 Appointment: Almaz Enriquez WPtel: [address] [place] [address] ER Follow UP 03/29/2015 Patient Education: Patient Medication Summary Completed 03/29/2015 Visit Plan: Start Loratadine 10mg p o BID Add flonase q HS 02/15/2015 Appointment: Almaz Enriquez WPtel: [address] [place] [address] ACUTE ILLNESS 02/15/2015 Patient Education: Patient Medication Summary Completed 02/15/2015 Visit Plan: Continue protonix and c arafate See GI for update EGD vs pH probe/etc. Discussed musculoskeletal etiology as well as patient does have some chest wall pain and thoracic pain 12/30/2014 Appointment: Almaz Enriquez WPtel: [address] [place] [phone] ER Follow UP 12/30/2014 Patient Education: Patient Medication Summary Completed 12/30/2014 Referral: Garo Reddy WPtel: [address] [facility] [id number] - Dr Reddy office verifies ins they s chedule with patient directly 10/20/14 Per Patient - she cannot go to this consult because due to her work comp case she must see their preferred dr. Completed 10/12/2014 Visit Plan: Continue wrist splint C heck EMG of RUE Start Vimovo once daily 09/30/2014 Appointment: Almaz Enriquez WPtel: [address] [place], [place] [phone] ER Follow UP 09/30/2014 Patient Education: Patient Medication Summary Completed 09/30/2014 Visit Plan: List reglan as an aller gy--tremor of thumb has improved since stopping Add carafate to protonix for next 2-4weeks If resolves will observe, if not will need updated EGD 07/19/2014 Appointment: Almaz Enriquez WPtel: [address] [place], [place] [phone] 07/16 also left message that payment is due ER Follow UP 4 Patient Education: Patient Medication Summary Completed 07/19/2014 Visit Plan: Stretches, moist heat, topical biofreeze Amrix 15mg q PM Celebrex 200mg po BID 06/01/2014 Appointment: Almaz Enriquez WPtel: [address] [place], [place] [phone] Patient will bring in/call in $50.00 pay ment on 06/08-LB ACUTE ILLNESS 06/01/20 14 Patient Education: Patient Medication Summary Completed 06/01/2014 Visit Plan: Complete antibiotics Ch jacqueline toothbrush 1/2 way through coarse of antibiotics 12/25/2013 Appointment: Radha Botello WPtel: [address] [place], [place] [phone] US was in ER on 12/19/13 ACUTE ILLNESS 12/25/2013 Patient Education: Patient Medication Summary Completed 12/25/2013 Visit Plan: Follow up if symptoms w murtazaen Call if begins to have symptoms of vaginal yeast and will call out bebeto Recommended topical hydrocortisone cream for symptoms 12/17/2013 Appointment: Radha Botello WPtel: [address] [place] [address] ACUTE ILLNESS 12/17/2013 Patient Education: Patient Medication Summary Completed 12/17/2013 Visit Plan: Supportive care. Rest, Fluids, Tylenol/Motrin prn fever or bodyaches. Notify if worsening symptoms. Zitthromax 500mg daily for 1wk Tussionex 09/15/2013 Appointment: Almaz Enriquez WPtel: [address] [place] [address] ACUTE ILLNESS 09/15/2013 Patient Education: Patient Medication Summary Completed 09/15/2013 Visit Plan: Samples Claritin 10mg 1 po daily #8, Nasonex 2 sprays each nostril daily (1 sample) Nasal saline Tylenol/Ibuprofen Rest/fluids Off work today. 08/14/2013 Appointment: Za Barajas WPtel: [address] [place] [address] ACUTE ILLNESS 08/14/2013 Patient Education: Patient Medication Summary Completed 08/14/2013 Visit Plan: Await holter results Av oid decongestants, caffeine Discussed likely secondary to recent illness, steroids, decongestants If persists will get ECHO 08/03/2013 Appointment: Almaz Enriquez WPtel: [address] [place], [place] [phone] ER Follow UP 08/03/2013 Patient Education: Patient Medication Summary Completed 08/03/2013 Visit Plan: Kenalog 40 mg andfDepo Medrol 40 mg Im now. Mucinex D daily. Nasonex nasal spray- 2 sprays eash nostril daily. 07/21/2013 Appointment: Radha Botello WPtel: [address] [place] [address] ACUTE ILLNESS 07/21/2013 Patient Education: Patient Medication Summary Completed 07/21/2013 Visit Plan: Flagyl 500mg 1 po bid x 7 days (with ETOH warning) Discussed d/c is much more yeast appearing, T&M obtained. Discussed that since cervix is still present (supracervical hyst) she will need routine P ap smears. Call if no improvement by next week. 06/12/2013 Appointment: Za Barajas WPtel: [address] [place] [address] ACUTE ILLNESS 06/12/2013 Patient Education: Patient Medication Summary Completed 06/12/2013 Visit Plan: Continue carafate once daily Check Chem 7, Insulin level today 12/25/2012 Appointment: Almaz Enriquez WPtel: [address] [place] [address] FOLLOW UP 12/25/2012 Patient Education: Patient Medication Summary Completed 12/25/2012 Visit Plan: Azithromycin and codein e/guiaf cough syrup. 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 Discussed notifying if symptoms worsen or persist. Fluids and comfort care. 10/30/2012 Appointment: Lucy Willson WPtel: [address] [place] [address] ACUTE ILLNESS 10/30/2012 Patient Education: Patient Medication Summary Completed 10/30/2012 Visit Plan: Continue metformin and all other meds Pt going for surgery for hysterectomy 08/28/2012 Appointment: Almaz Enriquez WPtel: [address] [place], [place] [phone] FOLLOW UP 08/28/2012 Patient Education: Patient Medication Summary Completed 08/28/2012 Appointment: Almaz Enriquez WPtel: [address] [place], [place] [phone] LAB 08/27/2012 Patient Education: Patient Medication Summary Completed 08/27/2012 Visit Plan: Continue carafate and p rotonix Proceed with EGD 05/27/2012 Appointment: Almaz Enriquez WPtel: [address] [place], [place] [phone] Hospital Follow Up 05/27/2012 Patient Education: Patient Medication Summary Completed 05/27/2012 Visit Plan: Continue metformin and accuchecks Restart Dexilant Check insulin level with CMP in 4mos 04/30/2012 Appointment: Almaz Enriquez WPtel: [address] [address] [place], [place] [id number] FOLLOW UP 04/30/2012 Patient Education: Patient Medication Summary Completed 04/30/2012 Appointment: Almaz Enriquez WPtel: [address] [place] [address] LAB 04/29/2012 Patient Education: Patient Medication Summary Completed 04/29/2012 Visit Plan: Pt. reports both of her children have experienced pink eye recently and were successfully treated with Tobramycin. Pt. is given written RX for Polymyxin B opthalmic drops. Recommend follow up with Dr. Beltre. Discussed precautions to prevent spread. 02/18/2012 Appointment: Lucy Willson WPtel: [address] [place] [address] ACUTE ILLNESS 02/18/2012 Patient Education: Patient Medication Summary Completed 02/18/2012 Visit Plan: Long discussion about d iet and exercise and eating 6 manny meals a day with protein Add daily metformin 250mg Restart MV with iron Glucometer to use prn 01/08/2012 Appointment: Almaz Enriquez WPtel: [address] [place], [place] [phone] FOLLOW UP 01/08/2012 Patient Education: Patient Medication Summary Completed 01/08/2012 Appointment: Almaz Enriquez WPtel: [address] [place], [place] [phone] LAB 12/25/2011 Patient Education: Patient Medication Summary Completed 12/25/2011 Visit Plan: amoxicillin. Discussed comfort care and cold/icy fluids. Tylenol/motrin for pain. Pt. will notify if fever or worsening symptoms. Discussed completion of antibiotic regimen 10/19/2011 Appointment: Lucy Willson WPtel: [address] [place] [address] ACUTE ILLNESS 10/19/2011 Patient Education: Patient Medication Summary Completed 10/19/2011 Visit Plan: Finish omnicef then sta rt daily cipro Toradol given then sprix prn for 5 days for pain See urology due to recurrence of UTIs 09/17/2011 Appointment: Almaz Enriquez WPtel: [address] [place] [address] Follow Up 09/17/2011 Patient Education: Patient Medication Summary Completed 09/17/2011 Visit Plan: New toothebrush in 5 da ysSaline nasal flushes prn. Tylenol/Motrin prn headache. Notify if persists/symptoms worsening. 07/05/2011 Appointment: Almaz Enriquez WPtel: [address] [place] [address] ACUTE ILLNESS 07/05/2011 Patient Education: Patient Medication Summary Completed 07/05/2011 Visit Plan: Continue Protonix Add D exilant 60mg q HS Check CMP, CBC, Lipase 05/31/2011 Appointment: Almaz Enriquez WPtel: [address] [place] [address] ACUTE ILLNESS 05/31/2011 Patient Education: Patient Medication Summary Completed 05/31/2011 Visit Plan: No caffeine, no nicotin e, no mints, no late meals, elevate HOB 30 degrees Restart Protonix 04/11/2011 Appointment: Almaz Enriquez WPtel: [address] [place] [address] ACUTE ILLNESS 04/11/2011 Patient Education: Patient Medication Summary Completed 04/11/2011 Visit Plan: pt. will take Cefuroxim e axetil. Will notify if symptoms worsen. 03/13/2011 Appointment: Lucy Willson WPtel: [address] [place] [address] ACUTE ILLNESS 03/13/2011 Patient Education: Patient Medication Summary Completed 03/13/2011 Visit Plan: Continue brace for 2-4 more weeks May exercise to point of discomfort then stop 11/30/2010 Appointment: Almaz Enriquez WPtel: [address] [place] [address] FOLLOW UP 11/30/2010 Patient Education: Patient Medication Summary Completed 11/30/2010 Visit Plan: Continue aircast and ad d Vimovo po BID 11/02/2010 Appointment: Almaz Enriquez WPtel: [address] [place] [address] ER Follow UP 11/02/2010 Patient Education: Patient Medication Summary Completed 11/02/2010 Appointment: Almaz Enriquez WPtel: [address] [place] [address] UA 08/01/2010 Patient Education: Patient Medication Summary Completed 08/01/2010 Visit Plan: ER visit Jul 16 Starte d Flagyl yesterday. Should finish it on 03 of August. nasal spray. Singulair samples given. Pt will seek re-eval if symptoms worsen. Phoned in codeine/guif cough syrup. ([facility]) 07/25/2010 Appointment: Lucy Willson WPtel: [address] [place] [address] ACUTE ILLNESS 07/25/2010 Patient Education: Patient Medication Summary Completed 07/25/2010 Visit Plan: Supportive care. Rest, Fluids, Tylenol/Motrin prn fever or bodyaches. Notify if worsening symptoms. 01/02/2010 Appointment: Almaz Enriquez WPtel: [address] [place] [address] ACUTE ILLNESS 01/02/2010 Patient Education: Patient Medication Summary Completed 01/02/2010 Referral: Cyrus Min WPtel: [address] [address] [place] Referral Appointment Requested Referral: Cyrus Min WPtel: [address] [address] [place] Referral Initiated Referral: Terrence Mehtatel: [address] [facility] [id number] Mehta will review and call patien to schedule Completed Referral: Judy Prasad WPtel: [address] [facility] [id number] Referral Initiated Instructions Comment . Is working [...] c odeine/guiaf cough syrup. 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
--- OUTSIDE RECORDS SUMMARY | 2020-04-20 21:13 | XMS REPORT | Continuity of Care Document ---
Author Organization Unknown Address Unknown Phone Unavailable Allergies Active Description Code Type Severity Reaction Onset Reported/Identified Relationship to Patient Clinical Status Yes MILK MILK Moderate Throat swelling 05/03/[id number] nieves Allergy Unknown twitches 08/20/2019 Medications There is no data. Problems Date [...] VICKY CULP, MICHELLE Mann Ot 719.43 11/28/2014 APRIL SEGOVIA MD Ot 465.9 11/28/2014 APRIL SEGOVIA MD Ot 786.2 11/30/2014 Ot 729.5 11/30/2014 Ot V45.89 11/30/2014 Ot 785.1 12/02/2014 Ot 729.5 12/02/2014 Ot V45.89 12/02/2014 Ot 785.1 12/26/2014 Ot 530.81 12/26/2014 Ot 786.50 03/20/2015 LOC DAVEY APRN Ot 724 .5 03/31/2015 Ot 729.5 03/31/2015 Ot V45.89 03/31/2015 Ot 785.1 05/18/2015 ASHISH CASTANEDA PROTEIN SPECIALIST Ot 729.5 05/18/2015 ASHISH CASTANEDA PROTEIN SPECIALIST Ot 729.5 06/10/2015 DELROY CULP, MARY Higgins Ot V76.12 06/23/2015 ASHISH CASTANEDAP Ot 729.5 07/11/2015 ASHISH CASTANEDA PROTEIN SPECIALIST Ot 729.5 08/02/2015 ASHISH CASTANEDA PROTEIN SPECIALIST Ot 729.5 08/02/2015 ASHISH CASTANEDAP Ot M79.609 08/07/2015 CONCHITA CULP, RAZA Mancia Ot K21. 0 GASTRO-ESOPHAGEAL REFLUX DISEASE WITH ES 08/07/2015 CONCHITA CULP, RAZA Mancia Ot R07. 9 CHEST PAIN, UNSPECIFIED 08/07/2015 CONCHITA CULP, RAZA Mancia Ot Z79.899 OTHER ASSISTED (CURRENT) DRUG THERAPY 08/12/2015 DELROY CULP, MARY Higgins Ot V76.12 08/12/2015 ASHISH CASTANEDA PROTEIN SPECIALIST Ot 729.5 08/12/2015 ASHISH CASTANEDAP Ot M79.609 12/07/2015 VICKY CULP, MICHELLE [...] DISEASE WITHOUT 05/23/2016 CAROLINE TSANG MD Ot Z01.81 8 ENCOUNTER FOR OTHER PREPROCEDURAL EXAMIN 05/24/2016 CAROLINE TSANG MD Ot K21.9 GASTRO-ESOPHAGEAL REFLUX DISEASE WITHOUT 05/24/2016 SANJIV TSANG MDKI Ot Z01.81 8 ENCOUNTER FOR OTHER PREPROCEDURAL EXAMIN 05/24/2016 CAROLINE TSANG MD Ot K21.9 GASTRO-ESOPHAGEAL REFLUX DISEASE WITHOUT 05/24/2016 CAROLINE TSANG MD Ot Z01.81 8 ENCOUNTER FOR OTHER PREPROCEDURAL EXAMIN 05/25/2016 MARY [...] M25.562 PAIN IN LEFT KNEE 07/04/2016 ALMAZ NERIQUEZ DO S Ot M25.562 PAIN IN LEFT KNEE 04/08/2017 LOC DAVEY APRN Ot L08 .9 LOCAL INFECTION OF THE SKIN AND SUBCUTAN 04/08/2017 LOC DAVEY APRN Ot S40.861A INSECT BITE (NONVENOMOUS) OF RIGHT UPPER 04/08/2017 LOC DAVEY P[place] MAORI Ot T78.40XA ALLERGY, UNSPECIFIED, INITIAL ENCOUNTER 06/10/2017 ALMAZ ENRIQUEZ DO S Ot Z12.31 ENCNTR SCREEN MAMMOGRAM FOR MALIGNANT NE 09/04/2017 DELROY CULP, MARY Higgins Ot Z12.31 ENCNTR SCREEN MAMMOGRAM FOR MALIGNANT NE 09/27/2017 DELROY CULP, MARY Higgins Ot Z12.31 ENCNTR SCREEN MAMMOGRAM FOR MALIGNANT NE 09/27/2017 ROHITHNDER , ALMAZ S Ot M25.562 PAIN IN LEFT KNEE 09/27/2017 ROHITHNDER , ALMAZ S Ot Z12.31 ENCNTR SCREEN MAMMOGRAM FOR MALIGNANT NE 09/30/2017 MARY POTTS MD Ot Z12.31 ENCNTR SCREEN MAMMOGRAM FOR MALIGNANT NE 09/30/2017 ROHITHNDER DO, ALMAZ S Ot M25.562 PAIN IN LEFT KNEE 09/30/2017 ROHITHNDER DO, ALMAZ S Ot Z12.31 ENCNTR SCREEN MAMMOGRAM FOR MALIGNANT NE 05/13/2018 MARY POTTS MD Ot Z12.31 ENCNTR SCREEN MAMMOGRAM FOR MALIGNANT NE 05/13/2018 ROHITHNDER DO, ALMAZ S Ot M25.562 PAIN IN LEFT KNEE 05/13/2018 ROHITHNDER , ALMAZ S Ot Z12.31 ENCNTR SCREEN MAMMOGRAM [...] Ot Z91.011 ALLERGY TO MILK PRODUCTS 06/04/2018 NAFISA CHARU JONESA K Ot K21.9 GASTRO-ESOPHAGEAL REFLUX DISEASE WITHOUT 06/04/2018 NAFISA CHARU JONESA K Ot N30.80 OTHER CYSTITIS WITHOUT HEMATURIA 06/04/2018 NAFISA KIRK JONES K Ot N39.0 URINARY TRACT INFECTION, SITE NOT SPECIF 06/04/2018 KIRK SKELTON DO Ot R35.0 FREQUENCY OF MICTURITION 06/04/2018 NAFISA CHARU JONESA K Ot Z87.19 PERSONAL HISTORY OF OTHER DISEASES OF TH 06/04/2018 NAFISA CHARU JONESA K Ot Z90.710 ACQUIRED ABSENCE OF BOTH CERVIX AND UTER 06/04/2018 NAFISA CHARU JONESA K Ot Z91.011 ALLERGY TO MILK PRODUCTS 09/02/2018 SABINA WILKINSON MD Ot K21. 9 GASTRO-ESOPHAGEAL REFLUX DISEASE WITHOUT 09/02/2018 SABINA WILKINSON MD Ot R00. 2 PALPITATIONS 09/02/2018 SABINA WILKINSON MD Ot Z82. 49 FAMILY HX OF ISCHEM HEART DIS AND OTH DI 09/02/2018 SABINA WILKINSON MD Ot Z87. 19 PERSONAL HISTORY OF OTHER DISEASES OF TH 09/02/2018 SABINA WILKINSON MD Ot Z87.448 PERSONAL HISTORY OF OTHER DISEASES OF UR 09/02/2018 SABINA WILKINSON MD Ot Z87. 59 PERSONAL HISTORY OF COMP OF PREG, CHLDBR 09/02/2018 SABINA WILKINSON MD Ot Z90.710 ACQUIRED ABSENCE OF BOTH CERVIX AND UTER 09/04/2018 SABINA WILKINSON MD Ot K21. 9 GASTRO-ESOPHAGEAL REFLUX DISEASE WITHOUT 09/04/2018 SABINA WILKINSON MD Ot R00. 2 PALPITATIONS 09/04/2018 SABINA WILKINSON MD Ot Z82. 49 FAMILY HX OF ISCHEM HEART DIS AND OTH DI 09/04/2018 SABINA WILKINSON MD Ot Z87. 19 PERSONAL HISTORY OF OTHER DISEASES OF TH 09/04/2018 SABINA WILKINSON MD Ot Z87.448 PERSONAL HISTORY OF OTHER DISEASES OF UR 09/04/2018 SABINA WILKINSON MD Ot Z87. 59 PERSONAL HISTORY OF COMP OF PREG, CHLDBR 09/04/2018 SABINA WILKINSON MD Ot Z90.710 ACQUIRED ABSENCE OF BOTH CERVIX AND UTER 09/08/2018 SABINA WILKINSON MD Ot K21. 9 GASTRO-ESOPHAGEAL REFLUX DISEASE WITHOUT 09/08/2018 SABINA WILKINSON MD Ot R00. 2 PALPITATIONS 09/08/2018 SABINA WILKINSON MD Ot Z82. 49 FAMILY HX OF ISCHEM HEART DIS AND OTH DI 09/08/2018 SABINA WILKINSON MD Ot Z87. 19 PERSONAL HISTORY OF OTHER DISEASES OF TH 09/08/2018 SABINA WILKINSON MD Ot Z87.448 PERSONAL HISTORY OF OTHER DISEASES OF UR 09/08/2018 SABINA WILKINSON MD Ot Z87. 59 PERSONAL HISTORY OF COMP OF PREG, CHLDBR 09/08/2018 SABINA WILKINSON MD Ot Z90.710 ACQUIRED ABSENCE OF BOTH CERVIX AND UTER 05/08/2019 MICHELLE PERRY MD Ot K21.9 GASTRO-ESOPHAGEAL REFLUX DISEASE WITHOUT 05/08/2019 MICHELLE PERRY MD Ot R00.2 PALPITATIONS 05/08/2019 MICHELLE PERRY MD Ot Z82.49 FAMILY HX OF ISCHEM HEART DIS AND OTH DI 05/08/2019 MICHELLE PERRY MD Ot Z86.018 PERSONAL HISTORY OF OTHER BENIGN NEOPLAS 05/08/2019 MICHELEL PERRY MD Ot Z90.710 ACQUIRED ABSENCE OF BOTH CERVIX AND UTER 05/12/2019 MARY POTTS MD Ot Z12.31 ENCNTR SCREEN MAMMOGRAM FOR MALIGNANT NE 05/12/2019 ALMAZ ENRIQUEZ DO S Ot M25.562 PAIN IN LEFT KNEE 05/12/2019 ALMAZ ENRIQUEZ DO S Ot Z12.31 ENCNTR SCREEN MAMMOGRAM FOR MALIGNANT NE 05/12/2019 ALMAZ ENRIQUEZ DO S Ot Z12.31 ENCNTR SCREEN MAMMOGRAM FOR MALIGNANT NE 05/13/2019 MICHELLE PERRY MD Ot K21.9 GASTRO-ESOPHAGEAL REFLUX DISEASE WITHOUT 05/13/2019 MICHELLE PERRY MD Ot R00.2 PALPITATIONS 05/13/2019 MICHELLE PERRY MD Ot Z82.49 FAMILY HX OF ISCHEM HEART DIS AND OTH DI 05/13/2019 MICHELLE PERRY MD Ot Z86.018 PERSONAL HISTORY OF OTHER BENIGN NEOPLAS 05/13/2019 VICKY CULP, MICHELLE Mann Ot Z90.710 ACQUIRED ABSENCE OF BOTH CERVIX AND UTER 06/01/2019 ORENDER DO, ALMAZ S Ot I49.3 VENTRICULAR PREMATURE DEPOLARIZATION 06/01/2019 ORENDER DO, ALMAZ S Ot I51.7 CARDIOMEGALY 06/01/2019 ORENDER DO, ALMAZ S Ot R00.8 OTHER ABNORMALITIES OF HEART BEAT 06/03/2019 DELROY CULP, MARY Higgins Ot Z12.31 ENCNTR SCREEN MAMMOGRAM FOR MALIGNANT NE 06/03/2019 ORENDER DO, ALMAZ S Ot M25.562 PAIN IN LEFT KNEE 06/03/2019 ORENDER DO, ALMAZ S Ot Z12.31 ENCNTR SCREEN MAMMOGRAM FOR MALIGNANT NE 06/03/2019 ORENDER DO, ALMAZ S Ot Z12.31 ENCNTR SCREEN MAMMOGRAM FOR MALIGNANT NE 06/03/2019 ORENDER DO, ALMAZ S Ot I49.1 ATRIAL PREMATURE DEPOLARIZATION 06/03/2019 ORENDER DO, ALMAZ S Ot R00.2 PALPITATIONS 06/03/2019 ORENDER DO, ALMAZ S Ot Z12.31 ENCNTR SCREEN MAMMOGRAM FOR MALIGNANT NE 06/03/2019 ORENDER DO, ALMAZ S Ot I49.3 VENTRICULAR PREMATURE DEPOLARIZATION 06/03/2019 ORENDER DO, ALMAZ S Ot I51.7 CARDIOMEGALY 06/03/2019 ORENDER DO, ALMAZ S Ot R00.8 OTHER ABNORMALITIES OF HEART BEAT 06/03/2019 ORENDER DO, ALMAZ S Ot I49.1 ATRIAL PREMATURE DEPOLARIZATION 06/03/2019 ORENDER DO, ALMAZ S Ot R00.2 PALPITATIONS 06/03/2019 ORENDER DO, ALMAZ S Ot Z12.31 ENCNTR SCREEN MAMMOGRAM FOR MALIGNANT NE 06/03/2019 ORENDER DO, ALMAZ S Ot I49.3 VENTRICULAR PREMATURE DEPOLARIZATION 06/03/2019 ORENDER DO, ALMAZ S Ot I51.7 CARDIOMEGALY 06/03/2019 ORENDER DO, ALMAZ S Ot R00.8 OTHER ABNORMALITIES OF HEART BEAT 06/04/2019 ORENDER DO, ALMAZ S Ot I49.1 ATRIAL PREMATURE DEPOLARIZATION 06/04/2019 ORENDER DO, ALMAZ S Ot R00.2 PALPITATIONS 06/12/2019 ORENDER DO, ALMAZ S Ot I49.3 VENTRICULAR PREMATURE DEPOLARIZATION 06/12/2019 ORENDER DO, ALMAZ S Ot I51.7 CARDIOMEGALY 06/12/2019 ORENDER DO, ALMAZ S Ot R00.8 OTHER ABNORMALITIES OF HEART BEAT 07/01/2019 ORENDER DO, ALMAZ S Ot I49.1 ATRIAL PREMATURE DEPOLARIZATION 07/01/2019 ORENDER DO, ALMAZ S Ot R00.2 PALPITATIONS 07/01/2019 ORENDER DO, ALMAZ S Ot I49.3 VENTRICULAR PREMATURE DEPOLARIZATION 07/01/2019 ORENDER DO, ALMAZ S Ot I51.7 CARDIOMEGALY 07/01/2019 ORENDER DO, ALMAZ S Ot R00.8 OTHER ABNORMALITIES OF HEART BEAT 08/20/2019 JAJA CULP, SABINA Aldrich Ot H65. 92 UNSPECIFIED NONSUPPURATIVE OTITIS MEDIA, 08/20/2019 JAJA CULP, SABINA Aldrich Ot H92. 02 OTALGIA, LEFT EAR 08/20/2019 JAJA CULP, SABINA Aldrich Ot K21. 9 GASTRO-ESOPHAGEAL REFLUX DISEASE WITHOUT 08/20/2019 JAJA CULP, SABINA Aldrich Ot Z82. 49 FAMILY HX OF ISCHEM HEART DIS AND OTH DI 08/20/2019 JAJA CULP, SABINA Aldrich Ot Z90.710 ACQUIRED ABSENCE OF BOTH CERVIX AND UTER 09/07/2019 DELROY CULP, MARY Higgins Ot Z12.31 ENCNTR SCREEN MAMMOGRAM FOR MALIGNANT NE 09/07/2019 ORENDER DO, ALMAZ S Ot M25.562 PAIN IN LEFT KNEE 09/07/2019 ORENDER DO, ALMAZ S Ot Z12.31 ENCNTR SCREEN MAMMOGRAM FOR MALIGNANT NE 09/07/2019 ORENDER DO, ALMAZ S Ot Z12.31 ENCNTR SCREEN MAMMOGRAM FOR MALIGNANT NE 09/07/2019 ORENDER DO, ALMAZ S Ot I49.1 ATRIAL PREMATURE DEPOLARIZATION 09/07/2019 ORENDER DO, ALMAZ S Ot R00.2 PALPITATIONS 09/07/2019 ALMAZ ENRIQUEZ DO Ot Z12.31 ENCNTR SCREEN MAMMOGRAM FOR MALIGNANT NE 09/07/2019 ALMAZ ENRIQUEZ DO Ot I49.3 VENTRICULAR PREMATURE DEPOLARIZATION 09/07/2019 ALMAZ ENRIQUEZ DO Ot I51.7 CARDIOMEGALY 09/07/2019 ALMAZ ENRIQUEZ DO Ot R00.8 OTHER ABNORMALITIES OF HEART BEAT 09/07/2019 BERNILEANA JANE Ot K21.9 GASTRO-ESOPHAGEAL REFLUX DISEASE WITHOUT 09/07/2019 BERNOT, JANE Ot M25.561 PAIN IN RIGHT KNEE 09/07/2019 BERNOT, JANE Ot Z82.49 FAMILY HX OF ISCHEM HEART DIS AND OTH DI 09/07/2019 BERNOT, JANE Ot Z88.8 ALLERGY STATUS TO OTH DRUG/MEDS/BIOL SUB 09/07/2019 BERNOT JANE Ot Z90.710 ACQUIRED ABSENCE OF BOTH CERVIX AND UTER 11/30/2019 BERNILEANA JANE Ot K21.9 GASTRO-ESOPHAGEAL REFLUX DISEASE WITHOUT 11/30/2019 BERNOT, JANE Ot L03.116 CELLULITIS OF LEFT LOWER LIMB 11/30/2019 BERNOT, JANE Ot Z79.51 DIRECTOR LIFE INSURANCE (CURRENT) USE OF INHALED STERO 11/30/2019 BERNILEANA, JANE Ot Z79.52 ASSISTED (CURRENT) USE OF SYSTEMIC STER 11/30/2019 BERNOT, JANE Ot Z82.49 FAMILY HX OF ISCHEM HEART DIS AND OTH DI 11/30/2019 BERNILEANA JANE Ot Z88.8 ALLERGY STATUS TO OTH DRUG/MEDS/BIOL SUB 12/02/2019 VICKY CULP, MICHELLE Mann Ot B02.9 ZOSTER WITHOUT COMPLICATIONS 12/02/2019 MICHELLE PERRY MD T Ot K21.9 GASTRO-ESOPHAGEAL REFLUX DISEASE WITHOUT 12/02/2019 MICHELLE PERRY MD Ot R21 RASH AND OTHER NONSPECIFIC SKIN ERUPTION 12/02/2019 MICHELLE PERRY MD T Ot Z79.51 DIRECTOR LIFE INSURANCE (CURRENT) USE OF INHALED STERO 12/02/2019 MICHELLE PERRY MD T Ot Z79.52 DIRECTOR LIFE INSURANCE (CURRENT) USE OF SYSTEMIC STER 12/02/2019 BRUEGGEMANN MD, MICHELLE T Ot Z82.49 FAMILY HX OF ISCHEM HEART DIS AND OTH DI 12/02/2019 MICHELLE PERRY MD Ot Z88.8 ALLERGY STATUS TO OTH DRUG/MEDS/BIOL SUB 12/06/2019 BERNOT, JANE Ot K21.9 GASTRO-ESOPHAGEAL REFLUX DISEASE WITHOUT 12/06/2019 BERNOT, JANE Ot L03.116 CELLULITIS OF LEFT LOWER LIMB 12/06/2019 BERNOT, JANE Ot Z79.51 ASSISTED (CURRENT) USE OF INHALED STERO 12/06/2019 BERNOT, JANE Ot Z79.52 DIRECTOR LIFE INSURANCE (CURRENT) USE OF SYSTEMIC STER 12/06/2019 BERNOT, JANE Ot Z82.49 FAMILY HX OF ISCHEM HEART DIS AND OTH DI 12/06/2019 BERNOT, JANE Ot Z88.8 ALLERGY STATUS TO OTH DRUG/MEDS/BIOL SUB 12/06/2019 MICHELLE PERRY MD Ot B02.9 ZOSTER WITHOUT COMPLICATIONS 12/06/2019 MICHELLE PERRY MD Ot K21.9 GASTRO-ESOPHAGEAL REFLUX DISEASE WITHOUT 12/06/2019 MICHELLE PERRY MD Ot R21 RASH AND OTHER NONSPECIFIC SKIN ERUPTION 12/06/2019 MICHELLE PERRY MD T Ot Z79.51 ASSISTED (CURRENT) USE OF INHALED STERO 12/06/2019 MICHELLE PERRY MD T Ot Z79.52 ASSISTED (CURRENT) USE OF SYSTEMIC STER 12/06/2019 MICHELLE PERRY MD T Ot Z82.49 FAMILY HX OF ISCHEM HEART DIS AND OTH DI 12/06/2019 MICHELLE PERRY MD T Ot Z88.8 ALLERGY STATUS TO OTH DRUG/MEDS/BIOL SUB 12/11/2019 W B02.9 Almaz Thacker Procedures There is no data. Results Test Result Range Complete blood count (CBC) with automate d white blood cell (WBC) differential - 09/02/18 18:46 Blood leukocytes automated count (number/volume) 6.8 10*3/uL 4.3-11.0 Blood erythrocytes automated count (number/volume) 4.48 10*6/uL 4.35-5.85 Venous blood hemoglobin measurement (mass/volume) 11.3 g/dL 11.5-16.0 Blood hematocrit (volume fraction) 34 % 35-52 Automated erythrocyte mean corpuscular volume 76 [ foz_us] 80-99 Automated erythrocyte mean corpuscular h emoglobin (mass per erythrocyte) 25 pg 25-34 Automated erythrocyte mean corpuscular h emoglobin concentration measurement (mass/volume) 33 g/dL 32-36 Automated erythrocyte distribution width ratio 14. 5 % 10.0- 14.5 Automated blood platelet count [...] 10*3 1.0-4.0 Blood monocytes automated count (number/volume) 0. 5 10*3 0.0-1.0 Automated eosinophil count 0.1 10*3/uL 0 .0-0.3 Automated blood basophil count (count/volume) 0.0 10*3/uL 0.0-0.1 Comprehensive metabolic panel - 09/02/18 18:46 Serum or plasma sodium measurement (moles/volume) 139 mmol/L 135-145 Serum or plasma potassium measurement (moles/volume) 3.3 mmol/L 3.6-5.0 Serum or plasma chloride measurement (moles/volume) 106 mmol/L 98-107 Carbon dioxide 24 mmol/L 21-32 Serum or plasma anion gap determination (moles/volume) 9 mmol/L 5-14 Serum or plasma urea nitrogen measurement (mass/volume ) 5 mg/dL 7-18 Serum or plasma creatinine measurement (mass/volume) 0.77 mg/dL 0.60-1.30 Serum or plasma urea nitrogen/creatinine mass ratio 6 NRG Serum or plasma creatinine measurement w ith calculation of estimated glomerular filtration rate > NRG Serum or plasma glucose measurement (mass/volume) 107 mg/dL 70-105 Serum or plasma calcium measurement (mass/volume) 9.0 mg/dL 8.5-10.1 Serum or plasma total bilirubin measurement (mass/volu me) 0.2 mg/dL 0.1-1.0 Serum or plasma alkaline phosphatase paul surement (enzymatic activity/volume) 53 U/L 40-136 Serum or plasma aspartate aminotransfera se measurement (enzymatic activity/volume) 15 U/L 5-34 Serum or plasma alanine aminotransferase measurement (enzymatic activity/volume) 14 U/L 0-55 Serum or plasma protein measurement (mass/volume) 7.6 g/dL 6.4-8.2 Serum or plasma albumin measurement (mass/volume) 4.3 g/dL 3.2-4.5 CALCIUM CORRECTED 8.8 mg/dL 8.5-10.1 Serum or plasma troponin i.cardiac measu rement (mass/volume) - 09/02/18 18:46 Serum or plasma troponin i.cardiac measurement (mass/v olume) < ng/mL <0.30 THYROID STIMULATING HORMONE - 09/02/18 1 8:46 THYROID STIMULATING HORMONE 6.32 u[iU]/mL 0.35-4.94 Serum or plasma thyroxine (T4) free francine urement (mass/volume) - 09/02/18 18:46 Serum or plasma thyroxine (T4) free measurement (mass/ volume) 0.97 ng/dL 0.70-1.48 Urine drug screening test - 09/02/18 19: 30 Urine phencyclidine detection by screening method NEGATIVE NEGATIVE Urine benzodiazepines detection by screening method NEGATIVE NEGATIVE Urine cocaine detection NEGATIVE NEGATI VE Urine amphetamines detection by screening method N EGATIVE NEGATIVE Urine methamphetamine detection by screening method NEGATIVE NEGATIVE Urine cannabinoids detection by screening method N EGATIVE NEGATIVE Urine opiates detection by screening method NEGATI VE NEGATIVE Urine barbiturates detection NEGATIVE N EGATIVE Screening urine tricyclic antidepressants detection NEGATIVE NEGATIVE Urine methadone detection by screening method NEGA TIVE NEGATIVE Urine oxycodone detection NEGATIVE NEGA TIVE Urine propoxyphene detection NEGATIVE N EGATIVE Complete blood count (CBC) with automate d white blood cell (WBC) differential - 05/08/19 13:30 Blood leukocytes automated count (number/volume) 6.8 10*3/uL 4.3-11.0 Blood erythrocytes automated count (number/volume) 4.65 10*6/uL 4.35-5.85 Venous blood hemoglobin measurement (mass/volume) 11.6 g/dL 11.5-16.0 Blood hematocrit (volume fraction) 35 % 35-52 Automated erythrocyte mean corpuscular volume 76 [ foz_us] 80-99 Automated erythrocyte mean corpuscular h emoglobin (mass per erythrocyte) 25 pg 25-34 Automated erythrocyte mean corpuscular h emoglobin concentration measurement (mass/volume) 33 g/dL 32-36 Automated erythrocyte distribution width ratio 15. 1 % 10.0- 14.5 Automated blood platelet count (count/volume) 357 10*3/uL 130-400 Automated blood platelet mean volume measurement 10.1 [foz_us] 7.4-10.4 Automated blood neutrophils/100 leukocytes 38 % 42-75 Automated blood lymphocytes/100 leukocytes 52 % 12-44 Blood monocytes/100 leukocytes 10 % 0-12 Automated blood eosinophils/100 leukocytes 1 % 0-10 Automated blood basophils/100 leukocytes 0 % 0-10 Blood neutrophils automated count (number/volume) 2.5 10*3 1.8-7.8 Blood lymphocytes automated count (number/volume) 3.5 10*3 1.0-4.0 Blood monocytes automated count (number/volume) 0. 7 10*3 0.0-1.0 Automated eosinophil count 0.1 10*3/uL 0 .0-0.3 Automated blood basophil count (count/volume) 0.0 10*3/uL 0.0-0.1 Comprehensive metabolic panel - 05/08/19 13:30 Serum or plasma sodium measurement (moles/volume) 137 mmol/L 135-145 Serum or plasma potassium measurement (moles/volume) 3.8 mmol/L 3.6-5.0 Serum or plasma chloride measurement (moles/volume) 103 mmol/L 98-107 Carbon dioxide 21 mmol/L 21-32 Serum or plasma anion gap determination (moles/volume) 13 mmol/L 5-14 Serum or plasma urea nitrogen measurement (mass/volume ) 19 mg/dL 7-18 Serum or plasma creatinine measurement (mass/volume) 0.84 mg/dL 0.60-1.30 Serum or plasma urea nitrogen/creatinine mass ratio 23 NRG Serum or plasma creatinine measurement w ith calculation of estimated glomerular filtration rate > NRG Serum or plasma glucose measurement (mass/volume) 79 mg/dL 70-105 Serum or plasma calcium measurement (mass/volume) 9.8 mg/dL 8.5-10.1 Serum or plasma total bilirubin measurement (mass/volu me) 0.3 mg/dL 0.1-1.0 Serum or plasma alkaline phosphatase paul surement (enzymatic activity/volume) 40 U/L 40-136 Serum or plasma aspartate aminotransfera se measurement (enzymatic activity/volume) 18 U/L 5-34 Serum or plasma alanine aminotransferase measurement (enzymatic activity/volume) 12 U/L 0-55 Serum or plasma protein measurement (mass/volume) 7.8 g/dL 6.4-8.2 Serum or plasma albumin measurement (mass/volume) 4.5 g/dL 3.2-4.5 CALCIUM CORRECTED 9.4 mg/dL 8.5-10.1 Magnesium - 05/08/19 13:30 Magnesium 2.1 mg/dL 1.8-2.4 Serum or plasma thyrotropin measurement by detection limit <=0.05 miu/l (units/volume) - 05/08/19 13:30 Serum or plasma thyrotropin measurement by detection limit <=0.05 miu/l (units/volume) 2.40 u[iU]/mL 0.35-4.94 Gram stain microscopy - 11/30/19 18:12 Gram stain microscopy No bacteria seen NRG Bacteria identification in wound by cult ure - 11/30/19 18:12 Bacteria identification in wound by culture NG NRG Complete blood count (CBC) with automate d white blood cell (WBC) differential - 04/20/20 16:51 Blood leukocytes automated count (number/volume) 5.8 10*3/uL 4.3-11.0 Blood erythrocytes automated count (number/volume) 4.49 10*6/uL 4.35-5.85 Venous blood hemoglobin measurement (mass/volume) 11.6 g/dL 11.5-16.0 Blood hematocrit (volume fraction) 35 % 35-52 Automated erythrocyte mean corpuscular volume 78 [ foz_us] 80-99 Automated erythrocyte mean corpuscular h emoglobin (mass per erythrocyte) 26 pg 25-34 Automated erythrocyte mean corpuscular h emoglobin concentration measurement (mass/volume) 33 g/dL 32-36 Automated erythrocyte distribution width ratio 14. 9 % 10.0- 14.5 Automated blood platelet count (count/volume) 333 10*3/uL 130-400 Automated blood platelet mean volume measurement 9.7 [foz_us] 7.4-10.4 Automated blood neutrophils/100 leukocytes 23 % 42-75 Automated blood lymphocytes/100 leukocytes 67 % 12-44 Blood monocytes/100 leukocytes 7 % 0-12 Automated blood eosinophils/100 leukocytes 2 % 0-10 Automated blood basophils/100 leukocytes 0 % 0-10 Blood neutrophils automated count (number/volume) 1.3 10*3 1.8-7.8 Blood lymphocytes automated count (number/volume) 3.9 10*3 1.0-4.0 Blood monocytes automated count (number/volume) 0. 4 10*3 0.0-1.0 Automated eosinophil count 0.1 10*3/uL 0 .0-0.3 Automated blood basophil count (count/volume) 0.0 10*3/uL 0.0-0.1 Comprehensive metabolic panel - 04/20/20 16:51 Serum or plasma sodium measurement (moles/volume) 139 mmol/L 135-145 Serum or plasma potassium measurement (moles/volume) 3.4 mmol/L 3.6-5.0 Serum or plasma chloride measurement (moles/volume) 105 mmol/L 98-107 Carbon dioxide 23 mmol/L 21-32 Serum or plasma anion gap determination (moles/volume) 11 mmol/L 5-14 Serum or plasma urea nitrogen measurement (mass/volume ) 8 mg/dL 7-18 Serum or plasma creatinine measurement (mass/volume) 0.96 mg/dL 0.60-1.30 Serum or plasma urea nitrogen/creatinine mass ratio 8 NRG Serum or plasma creatinine measurement w ith calculation of estimated glomerular filtration rate > NRG Serum or plasma glucose measurement (mass/volume) 113 mg/dL 70-105 Serum or plasma calcium measurement (mass/volume) 9.0 mg/dL 8.5-10.1 Serum or plasma total bilirubin measurement (mass/volu me) 0.2 mg/dL 0.1-1.0 Serum or plasma alkaline phosphatase paul surement (enzymatic activity/volume) 39 U/L 40-136 Serum or plasma aspartate aminotransfera se measurement (enzymatic activity/volume) 20 U/L 5-34 Serum or plasma alanine aminotransferase measurement (enzymatic activity/volume) 15 U/L 0-55 Serum or plasma protein measurement (mass/volume) 7.4 g/dL 6.4-8.2 Serum or plasma albumin measurement (mass/volume) 4.2 g/dL 3.2-4.5 CALCIUM CORRECTED 8.8 mg/dL 8.5-10.1 Fibrin D-dimer FEU measurement in platel et poor plasma (mass/volume) - 04/20/20 16:51 Fibrin D-dimer FEU measurement in platelet poor plasma (mass/volume) < ug/mL 0.00-0.49 Serum or plasma choriogonadotropin (preg ashish test) detection - 04/20/20 16:51 Serum or plasma choriogonadotropin ( test) de tection NEGATIVE NEGATIVE Serum or plasma troponin i.cardiac measu rement (mass/volume) - 04/20/20 16:51 Serum or plasma troponin i.cardiac measurement (mass/v olume) < ng/mL <0.028 Encounters ACCT No. Visit Date/Time Discharge Status Pt. Type Provider Facility Loc./Unit Complaint 05/20/15 08/18/2019 08:37:36 08/18/2019 23:5 9:59 [facility] Outpatient Almaz Enriquez 1030 12/03/2019 08:26:00 Document Registration [id number] 01/24/2020 16:45:00 01/24/2020 23:59:5 9 [facility] Outpatient JAIME CHANDRA APRN [facility] [id number] 04/20/2020 16:24:00 18:06:00 DIS Emergency LOC DAVEY APRN [facility] ER PALPITATIONS [id number] 12/01/2019 23:25:00 00:55:00 DIS Emergency VICKY CULP, MICHELLE Mann [facility] ER ITCHING ON LEG [id number] 11/30/2019 17:19:00 18:41:00 DIS Emergency JANE RAMOS [facility] ER SPOT ON LEG [id number] 09/07/2019 14:39:00 15:52:00 DIS Emergency JANE RAMOS [facility] ER R KNEE PAIN [id number] 08/20/2019 03:05:00 019 03:32:00 DIS Emergency JAJA CULP, SABINA Aldrich [facility] ER CONGESTION, LEFT EAR PA IN [id number] 05/28/2019 12:45:00 23:59:59 CLS Outpatient ORENDER DO, ALMAZ S [facility] CARD PVC AND TRIGEMI [place] [id number] 05/26/2019 09:44:00 23:59:59 CLS Outpatient ORENDER DO, ALMAZ S [facility] RAD SCREENING [id number] 05/12/2019 08:00:00 23:59:59 CLS Outpatient ORENDER DO, ALMAZ S [facility] CARD PALPITATIONS [id number] 05/08/2019 13:19:00 019 15:15:00 DIS Emergency MICHELLE PERRY MD [facility] ER PALPITATIONS [id number] 09/02/2018 18:03:00 018 21:58:00 DIS Emergency SABINA WILKINSON MD [facility] ER "BUTTERFLIES IN CHEST" [id number] 06/02/2018 04:19:00 018 05:09:00 DIS Emergency NAFISA KIRK JONES [facility] ER POSS UTI, BLOODY VAG DISCHARGE,PELVIC PAIN [id number] 05/22/2018 07:45:00 018 23:59:59 CLS Outpatient ORENDER DO, ALMAZ S [facility] RAD SCREENING [id number] 05/21/2017 09:33:00 017 23:59:59 CLS Outpatient ORENDER DO, ALMAZ S [facility] RAD SCREENING [id number] 04/08/2017 19:24:00 017 20:10:00 DIS Emergency LOC DAVEY APRN [facility] ER RT ARM SWELLING/POSSIBL E BITE [id number] 06/23/2016 08:41:00 016 23:59:59 CLS Outpatient ALMAZ ENRIQUEZ DO [facility] RAD L KNEE PAIN [id number] 06/22/2016 18:26:00 016 18:26:00 CAN Preadmit ALMAZ ENRIQUEZ DO [facility] RAD L KNEE PAIN [id number] 05/25/2016 08:01:00 016 11:00:00 DIS Outpatient CAROLINE TSANG MD [facility] SDC REFLUX [id number] 05/23/2016 05:42:00 016 10:17:00 DIS Outpatient CAROLINE TSANG MD [facility] PREOP REFLUX [id number] 05/08/2016 10:40:00 016 23:59:59 CLS Outpatient MARY POTTS MD [facility] RAD ROUTINE SCREENI NG [id number] 04/25/2016 18:45:00 016 22:03:00 DIS Emergency ARIANA HAMILTON DO [facility] ER SORE THROAT,ACID REFLUX [id number] 12/07/2015 04:26:00 016 06:18:00 DIS Emergency VICKY CULP, MICHELLE Mann [facility] ER BACK PAIN,CHEST PAIN [id number] 08/07/2015 14:35:00 015 16:51:00 DIS Emergency CONCHITA CULP, RAZA Mancia [facility] ER CHEST PAIN [id number] 05/23/2015 08:58:00 015 23:59:59 CLS Outpatient MARY POTTS MD [facility] RAD [id number] 05/03/2015 10:34:00 015 23:59:59 CLS Outpatient ASHISH CASTANEDA [facility] RAD [id number] 03/20/2015 17:50:00 06/07/2 015 18:55:00 DIS Emergency LOC DAVEY APRN [facility] ER [id number] 11/28/2014 21:41:00 015 23:06:00 DIS Emergency APRIL SEGOVIA MD [facility] ER [id number] 09/26/2014 08:36:00 014 09:33:00 DIS Emergency MICHELLE PERRY MD [facility] ER [id number] 07/10/2014 10:36:00 014 11:44:00 DIS Emergency LOC DAVEY APRN [facility] ER [id number] 05/03/2014 11:40:00 014 13:02:00 DIS Emergency KIRK SKELTON DO [facility] ER [id number] 12/19/2013 06:57:00 014 07:16:00 DIS Emergency APRIL SEGOVIA MD [facility] ER [id number] 07/28/2013 11:09:00 014 00:01:00 DIS Outpatient KIRK SKELTON DO [facility] CARD [id number] 07/28/2013 08:22:00 013 10:43:00 DIS Emergency NAFISA KIRK JONES [facility] ER [id number] 02/06/2013 13:05:00 013 23:59:59 CLS Outpatient [id number] 08/20/2019 03:22:00 Document Registration [id number] 12/26/2014 19:03:00 Document Registration [id number] 10/27/2013 11:30:00 Document Registration [id number] 10/01/2012 10:08:00 Document Registration [id number] 07/18/2012 09:48:00 Document Registration [id number] 10/27/2010 20:01:00 Document Registration [id number] 07/28/2010 00:15:00 Document Registration [id number] 07/16/2010 03:19:00 Document Registration
== END 2020-04-20 18:06 | disposition home or self-care (01) ==
LOC: EDUNIT# 16:23 → ER 16:24
DX: F41.9 Anxiety disorder, unspecified (principal); K21.9 Gastro-esophageal reflux disease without esophagitis; Z88.8 Allergy status to other drugs, medicaments and biological substances; Z79.51 Long term (current) use of inhaled steroids; Z79.52 Long term (current) use of systemic steroids; Z82.49 Family history of ischemic heart disease and other diseases of the circulatory system
CPT/HCPCS: 36415; 80053; 84484; 84703; 85025; 85379; 93005

== ENCOUNTER → 2020-05-27 | Outpatient (CLI) | payer BC ==
[~2020-05-27] MED LIST changes: +ALPR0.5T PO
--- NOTE | 2020-05-27 08:58 | Diagnostic Imaging Report ---
INDICATION: Routine screening. Comparison is made with prior mammogram from 05/26/2019 and 05/22/2018. 2-D and 3-D bilateral screening mammography was performed with CAD. Both breasts remain heterogeneously dense, limiting the sensitivity of mammography. The parenchymal pattern is stable. No mass or malignant appearing microcalcifications are seen. Axillae are unremarkable. IMPRESSION: BI-RADS Category 1 No mammographic features suspicious for malignancy are identified. Dictated by: Dictated on workstation # [id number]
== END ==
LOC: RAD 07:49
PROVIDERS: ATTEND Family Medicine
DX: Z12.31 Encounter for screening mammogram for malignant neoplasm of breast (principal); N95.1 Menopausal and female climacteric states; R00.2 Palpitations
CPT/HCPCS: 36415; 77063; 77067; 82670; 83001; 83002; 84443

== ENCOUNTER → 2020-11-04 | Outpatient (CLI) | payer BC ==
[2020-11-04 08:47] LABS: ALANINE AMINOTRANSFERASE 13 U/L (0-55); ALBUMIN 4.2 GM/DL (3.2-4.5); ALKALINE PHOSPHATASE 40 U/L (40-136); BILIRUBIN,TOTAL 0.3 MG/DL (0.1-1.0); BUN/CREATININE RATIO 14; CALCIUM 9.2 MG/DL (8.5-10.1); CARBON DIOXIDE 24 MMOL/L (21-32); CHLORIDE 103 MMOL/L (98-107); CHOLESTEROL 192 MG/DL (< 200); CREATININE SERUM 0.85 MG/DL (0.60-1.30); GFR ESTIMATED > 60; GLUCOSE 82 MG/DL (70-105); HDL CHOLESTEROL 49 MG/DL (40-60); POTASSIUM 4.2 MMOL/L (3.6-5.0); SODIUM 136 MMOL/L (135-145); TOTAL PROTEIN 7.5 GM/DL (6.4-8.2); TRIGLYCERIDES 132 MG/DL (<150); VLDL CHOLESTEROL 26 MG/DL (5-40)
== END ==
LOC: LAB 08:06
PROVIDERS: ATTEND Internal Medicine Cardiovascular Disease
DX: I10 Essential (primary) hypertension (principal)
CPT/HCPCS: 36415; 80053; 80061

== ENCOUNTER → 2021-06-02 | Outpatient (CLI) | payer BC, OTHER ==
[~2021-06-02] MED LIST changes: +ACYC-112 PO; -ACYC800T PO; -SULF1TAB35 PO
[2021-06-02 08:29] LABS: BASOPHILS % (AUTO) 0 % (0-10); EOSINOPHILS # (AUTO) 0.1 10^3/uL (0.0-0.3); EOSINOPHILS % (AUTO) 1 % (0-10); HEMATOCRIT 36 % (35-52); HEMOGLOBIN 11.4 g/dL (11.5-16.0); LYMPHOCYTES % (AUTO) 48 % (12-44); MEAN CORPUSCULAR HEMOGLOBIN 25 pg (25-34); MEAN CORPUSCULAR HGB CONC 32 g/dL (32-36); MEAN CORPUSCULAR VOLUME 80 fL (80-99); MEAN PLATELET VOLUME 9.3 fL (9.0-12.2); MONOCYTES # (AUTO) 0.5 10^3/uL (0.0-1.0); MONOCYTES % (AUTO) 8 % (0-12); NEUTROPHILS # (AUTO) 2.7 10^3/uL (1.8-7.8); NEUTROPHILS % (AUTO) 42 % (42-75); PLATELET COUNT 342 10^3/uL (130-400); WHITE BLOOD COUNT 6.3 10^3/uL (4.3-11.0)
[2021-06-02 08:56] LABS: ALBUMIN 4.1 GM/DL (3.2-4.5); BILIRUBIN,TOTAL 0.4 MG/DL (0.1-1.0); CALCIUM 9.5 MG/DL (8.5-10.1); CREATININE SERUM 0.79 MG/DL (0.60-1.30); TOTAL PROTEIN 7.5 GM/DL (6.4-8.2)
[2021-06-02 09:17] LABS: FREE T4 (FREE THYROXINE) 0.94 NG/DL (0.70-1.48)
== END ==
LOC: LAB 08:06
PROVIDERS: ATTEND Family Medicine
DX: Z00.01 Encounter for general adult medical examination with abnormal findings (principal); R94.6 Abnormal results of thyroid function studies
CPT/HCPCS: 36415; 80053; 80061; 84439; 84443; 85025

== ENCOUNTER → 2021-08-22 | Outpatient (CLI) | payer OTHER ==
--- NOTE | 2021-08-22 15:25 | Diagnostic Imaging Report ---
INDICATION: Routine screening. COMPARISON: 05/27/2020 and 05/26/2019. TECHNIQUE: 2D and 3D bilateral screening mammography was performed with CAD. FINDINGS: Both breasts are heterogeneously dense, limiting the sensitivity of mammography. No mass or malignant-appearing microcalcifications are seen. The axillae are unremarkable. IMPRESSION: No mammographic features suspicious for malignancy are identified. ACR BI-RADS Category 1: Negative. Result letter will be mailed to the patient. Note: At least 10% of breast cancer is not imaged by mammography. Dictated by: Dictated on workstation # [id number]
--- NOTE | 2021-08-22 19:19 | Diagnostic Imaging Report ---
PROCEDURE: US Thyroid. TECHNIQUE: Multiple real-time grayscale images were obtained of the thyroid in various projections. INDICATION: Thyroid nodule. COMPARISON: There are no prior studies available for comparison. FINDINGS: The thyroid gland is prominent but not enlarged. The right lobe measures 5.4 x 2.0 x 1.5 cm while the left lobe is estimated to be 5.1 x 1.4 x 1.2 cm (normal gland size 4-5 x 2 x 2 cm or less). Near the junction of the isthmus and the lower pole of the right lobe of the thyroid, there is a 1.3 x 0.6 x 0.6 cm isoechoic nodule. I suspect that this is a benign process, and I would classify this as a TI-RADS 3 nodule. The left lobe is fairly homogeneous. IMPRESSION: 1. There is a small isoechoic nodule in the inferior pole of the right lobe of the thyroid. This is most likely a benign process. A short-term (six-month) follow-up thyroid ultrasound exam should be obtained for further evaluation, however. 2. There is no abnormality of the left lobe of the thyroid. Dictated by: Dictated on workstation # [id number]
== END ==
LOC: RAD 14:00
PROVIDERS: ATTEND Family Medicine
DX: Z12.31 Encounter for screening mammogram for malignant neoplasm of breast (principal); E04.1 Nontoxic single thyroid nodule
CPT/HCPCS: 76536; 77063; 77067

== ENCOUNTER 2021-12-07 18:19 | Emergency (ER) | payer OTHER ==
[~2021-12-07] VITALS: Ht 154 cm; Wt 86.6 kg
--- NOTE | 2021-12-07 18:31 | ED Lower Extremity ---
General Chief Complaint: Lower Extremity Stated Complaint: ANKLE INJURY Source: patient Exam Limitations: no limitations History of Present Illness Date Seen by Provider: Dec 07, 2021 Time Seen by Provider: 18:30 Initial Comments To ER with a right medial ankle pain after she inverted the ankle last night. Onset: yesterday Severity: moderate Pain/Injury Location: right ankle Method of Injury: twisted Modifying Factors: Worse With Movement Allergies and Home Medications Allergies Coded Allergies: metoclopramide (Unverified Allergy, Unknown, twitches, 08/20/19) Uncoded Allergies: MILK (Adverse Reaction, Intermediate, Throat swelling, 05/03/14) Patient Home Medication List Home Medication List Reviewed: Yes Acyclovir (Acyclovir) 800 Mg Tablet, 800 MG PO 5XD Prescribed by: MICHELLE OSULLIVAN on 12/02/19 0031 Alprazolam (Xanax) 0.5 Mg Tablet, 0.25-0.5 MG PO DAILY PRN for ANXIETY Prescribed by: LOC DAVEY on 04/20/20 1717 Fluticasone Propionate (Flonase Allergy Relief) 9.9 Ml [place].susp, 2 SPRAY NS DAILY Prescribed by: SABINA WILKINSON on 08/20/19 0329 Pantoprazole Sodium (Protonix) 40 Mg Tablet.dr, 40 MG PO DAILY, (Reported) Entered as Reported by: RIYA CAMPBELL on 08/20/19 032 Prednisone (Prednisone) 20 Mg Tab, 20 MG PO BID Prescribed by: SABINA IWLKINSON on 08/20/19 0329 Sulfamethoxazole/Trimethoprim (Bactrim Ds Tablet) 1 Each Tablet, 1 EACH PO BID Prescribed by: JANE RAMOS on 11/30/19 1830 Review of Systems Constitutional: see HPI EENTM: see HPI Respiratory: no symptoms reported Cardiovascular: no symptoms reported Genitourinary: no symptoms reported Musculoskeletal: see HPI Skin: no symptoms reported Psychiatric/Neurological: No Symptoms Reported Past Ysskmjr-Jiakmk-Duhhar Hx Patient Social History Tobacco Use?: No Use of E-Cig and/or Vaping dev: No Substance use?: No Alcohol Use?: No Pt feels they are or have been: No Immunizations Up To Date Tetanus Booster (TDap): Less than 5yrs PED Vaccines UTD: Yes First/Initial COVID19 Vaccinat: unk Second COVID19 Vaccination Scottie: unk Seasonal Allergies Seasonal Allergies: No Past Medical History Surgeries: Yes (DENTAL; HYST/OVARIES INTACT; EGD'S ) Hysterectomy Respiratory: No Cardiac: No (PVC's) Palpitations Neurological: No Reproductive Disorders: Yes (Fibroid tumors, had 5 miscarragies) 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 Sexually Transmitted Disease: No Genitourinary: Yes Kidney Infection, Bladder Infection Gastrointestinal: Yes Gastroesophageal Reflux, Hiatal Hernia Musculoskeletal: No Endocrine: No HEENT: No Cancer: No Psychosocial: No Integumentary: No Blood Disorders: No Family Medical History Alzheimer's disease 19 FATHER Cardiovascular disease 19 MOTHER Completed stroke 19 MOTHER Diabetes mellitus 19 MOTHER Hypertension 19 MOTHER Kidney disease 19 MOTHER Myocardial infarction 19 MOTHER Respiratory disorder 19 MOTHER (COPD) Physical Exam Vital Signs Vital Signs - First Documented 12/07/21 18:20 Temp 36.6 Pulse 100 Resp 20 B/P (MAP) 150/77 (101) Pulse Ox 99 O2 Delivery Room Air Capillary Refill : Height, Weight, BMI Height: 5'2.00" Weight: 155lbs. 1.0oz. 70.025689hs; 32.00 BMI Method:Estimated General Appearance: WD/WN, no apparent distress HEENT: PERRL/EOMI, normal ENT inspection Respiratory: no respiratory distress, no accessory muscle use Gastrointestinal: normal bowel sounds, non tender Hips: bilateral hip non-tender, bilateral hip normal inspection, bilateral hip normal range of motion Legs: bilateral leg non-tender, bilateral leg normal inspection, bilateral leg normal range of motion Knees: bilateral knee non-tender, bilateral knee normal inspection, bilateral knee normal range of motion Ankles: right ankle other (Tenderness and a bit of swelling over the medial malleolus. Distal pulses and sensation are intact) Neurologic/Psychiatric: alert, normal mood/affect, oriented x 3 Skin: normal color, warm/dry Progress/Results/Core Measures Results/Orders My Orders Orders - LOC DAVEY APRN Ankle, Right, 3 Views (12/07/21 18:26) Vital Signs/I&O 12/07/21 18:20 Temp 36.6 Pulse 100 Resp 20 B/P (MAP) 150/77 (101) Pulse Ox 99 O2 Delivery Room Air Departure Impression Primary Impression: Sprain and strain of ankle Disposition: 01 HOME, SELF-CARE Condition: Stable Departure-Patient Inst. Decision time for Depature: 18:52 Referrals: JAZMIN MCGRAW DO (PCP/Family) Primary Care Physician Patient Instructions: Ankle Sprain (DC) Add. Discharge Instructions: 1. Ice pack to the area for 30 minutes every 1-2 hours. Tylenol ibuprofen for pain control. Return to ER for any concerns. Follow-up with your doctor next week. All discharge instructions reviewed with patient and/or family. Voiced understanding. LOC DAVEY APRN Dec 07, 2021 18:31
--- NOTE | 2021-12-07 18:50 | Diagnostic Imaging Report ---
INDICATION: Ankle pain, rolling ankle. EXAMINATION: Three-view right ankle. FINDINGS: The malleoli intact. No disruption of the mortise. The articular surface is smooth. The base of the 5th metatarsal intact. No fracture identified. IMPRESSION: Unremarkable three-view right ankle. Dictated by: Dictated on workstation # [id number]
[2021-12-07 18:55] VITALS: BP 134/87
== END 2021-12-07 18:58 | disposition home or self-care (01) ==
LOC: EDUNIT# 18:19 → ER 18:21
DX: S93.401A Sprain of unspecified ligament of right ankle, initial encounter (principal); X50.1XXA Overexertion from prolonged static or awkward postures, initial encounter
CPT/HCPCS: 73610

== ENCOUNTER → 2022-01-08 | Outpatient (CLI) | payer OTHER ==
[2022-01-08 09:06] LABS: ALBUMIN 4.1 GM/DL (3.2-4.5); BILIRUBIN,TOTAL 0.3 MG/DL (0.1-1.0); CALCIUM 8.9 MG/DL (8.5-10.1); CREATININE SERUM 0.81 MG/DL (0.60-1.30); TOTAL PROTEIN 7.3 GM/DL (6.4-8.2)
== END ==
LOC: LAB 08:27
PROVIDERS: ATTEND Internal Medicine Cardiovascular Disease
DX: E78.2 Mixed hyperlipidemia (principal)
CPT/HCPCS: 36415; 80053; 80061

== ENCOUNTER 2022-02-07 20:36 | Emergency (ER) | payer OTHER ==
[~2022-02-07] VITALS: Ht 154.9 cm; Wt 88.4 kg
--- NOTE | 2022-02-07 21:23 | ED General ---
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 DID CHECK HER BLOOD PRESSURE AT [facility] [employer] AND IT WAS "159 OVER SOMETHING" PAIN IN RIGHT UPPER ARM/BICEPS AREA HAS CONTINUED. NO RADIATION OF PAIN --STATES IN THE SAME AREA. NO CHEST PAIN NO SHORTNESS OF BREATH NO PALPITATIONS NO DIZZINESS OR SYNCOPE NO HEADACHE NO NECK OR BACK PAIN NO ABDOMINAL PAIN NO FEVER, COUGH OR RECENT ILLNESS. NO HISTORY OF SIMILAR ONLY MEDICAL PROBLEM IS GERD AND TAKES PROTONIX FOR IT. HAS NOT HAD ANY RECENT WORSENING OF THOSE SYMPTOMS PCP: DR. MCGRAW Allergies and Home Medications Allergies Coded Allergies: metoclopramide (Unverified Allergy, Unknown, twitches, 08/20/19) Uncoded Allergies: MILK (Adverse Reaction, Intermediate, Throat swelling, 05/03/14) Patient Home Medication List Home Medication List Reviewed: Yes Acyclovir (Acyclovir) 800 Mg Tablet, 800 MG PO 5XD Prescribed by: MICHELLE OSULLIVAN on 12/02/19 0031 Alprazolam (Xanax) 0.5 Mg Tablet, 0.25-0.5 MG PO DAILY PRN for ANXIETY Prescribed by: LOC DAVEY on 04/20/20 1717 Cyclobenzaprine HCl (Cyclobenzaprine HCl) 10 Mg Tablet, 10 MG PO Q8H PRN for SPASMS Prescribed by: KIRK SKELTON on 02/07/22 0077 Fluticasone Propionate (Flonase Allergy Relief) 9.9 Ml [place].susp, 2 SPRAY NS DAILY Prescribed by: SABINA WILKINSON on 08/20/19328 Ketorolac Tromethamine (Ketorolac Tromethamine) 10 Mg Tablet, 10 MG PO Q6H Prescribed by: KIRK SKELTON on 02/07/222258 Pantoprazole Sodium (Protonix) 40 Mg Tablet.dr, 40 MG PO DAILY, (Reported) Entered as Reported by: RIYA CAMPBELL on 08/20/19321 Prednisone (Prednisone) 20 Mg Tab, 20 MG PO BID Prescribed by: SABINA WILKINSON on 08/20/19328 Sulfamethoxazole/Trimethoprim (Bactrim Ds Tablet) 1 Each Tablet, 1 EACH PO BID Prescribed by: JANE RAMOS on 11/30/19 183 Review of Systems Review of Systems Constitutional: no symptoms reported; No chills, No dizziness, No fever EENTM: no symptoms reported Respiratory: no symptoms reported; No cough, No short of breath Cardiovascular: no symptoms reported; No chest pain, No edema, No palpitations, No syncope Gastrointestinal: no symptoms reported; No abdominal pain, No nausea, No vomiting Genitourinary: no symptoms reported Musculoskeletal: see HPI; No back pain; muscle pain; No neck pain Skin: no symptoms reported; No rash Psychiatric/Neurological: See HPI, Numbness, Paresthesia, Tingling; Denies Weakness Hematologic/Lymphatic: No Symptoms Reported Immunological/Allergic: no symptoms reported Past Vbqrwtt-Qerelj-Mtczdw Hx Immunizations Up To Date Tetanus Booster (TDap): Less than 5yrs PED Vaccines UTD: Yes First/Initial COVID19 Vaccinat: unk Second COVID19 Vaccination Scottie: unk Seasonal Allergies Seasonal Allergies: No Past Medical History Surgeries: Yes (DENTAL; HYST/OVARIES INTACT; EGD'S ) Hysterectomy Respiratory: No Cardiac: No (PVC's) Palpitations Neurological: No Reproductive Disorders: Yes (Fibroid tumors, had 5 miscarragies) 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 Sexually Transmitted Disease: No Genitourinary: Yes Kidney Infection, Bladder Infection Gastrointestinal: Yes Gastroesophageal Reflux, Hiatal Hernia Musculoskeletal: No Endocrine: No HEENT: No Cancer: No Psychosocial: No Integumentary: No Blood Disorders: No Family Medical History Alzheimer's disease 19 FATHER Cardiovascular disease 19 MOTHER Completed stroke 19 MOTHER Diabetes mellitus 19 MOTHER Hypertension 19 MOTHER Kidney disease 19 MOTHER Myocardial infarction 19 MOTHER Respiratory disorder 19 MOTHER (COPD) Physical Exam Vital Signs Vital Signs - First Documented 02/07/22 20:46 Temp 36.4 Pulse 101 Resp 20 B/P (MAP) 173/88 (116) Pulse Ox 100 Capillary Refill : Height, Weight, BMI Height: 5'2.00" Weight: 155lbs. 1.0oz. 70.666738wf; 36.00 BMI Method:Estimated General Appearance: No Apparent Distress, WD/WN, Anxious HEENT: PERRL/EOMI Neck: Full Range of Motion, Normal Inspection, Non Tender, Supple; No Carotid Bruit, No JVD Respiratory: Chest Non Tender, Normal Breath Sounds, No Accessory Muscle Use, No Respiratory Distress Cardiovascular: Regular Rate, Rhythm, No Edema, No JVD, No Murmur, Normal Peripheral Pulses Gastrointestinal: Non Tender, Soft Back: Normal Inspection, No CVA Tenderness, No Vertebral Tenderness Extremity: Normal Capillary Refill, Normal Range of Motion, No Calf Tenderness, No Pedal Edema, Other (MILD TENDERNESS OVER RIGHT BICEPS AREA. MOTOR/SENSORY/VASCULAR INTACT, FULL ROM WITH OUT DIFFICULTY) Neurologic/Psychiatric: Alert, Oriented x3, No Motor/Sensory Deficits, what job titles mean II- XII Norm as Tested; No Abnormal Cerebellar Tests; Other (ANXIOUS) Skin: Normal Color (PT IS BLACK), Warm/Dry; No Rash; Tattoos/Piercings Progress/Results/Core Measures Suspected Sepsis SIRS Temperature: Pulse: Respiratory Rate: Laboratory Tests 02/07/22 21:21: White Blood Count 7.4 Blood Pressure / Mean: Laboratory Tests 02/07/22 21:21: Creatinine 0.93, Platelet Count 360, Total Bilirubin 0.4 Results/Orders Lab Results Laboratory Tests Test 02/07/22 21:21 Range/Units White Blood Count 7.4 4.3-11.0 10^3/uL Red Blood Count 4.74 3.80-5.11 10^6/uL Hemoglobin 11.8 11.5-16.0 g/dL Hematocrit 37 35-52 % Mean Corpuscular Volume 78 L 80-99 fL Mean Corpuscular Hemoglobin 25 25-34 pg Mean Corpuscular Hemoglobin Concent 32 32-36 g/dL Red Cell Distribution Width 14.5 10.0-14.5 % Platelet Count 360 130-400 10^3/uL Mean Platelet Volume 9.5 9.0-12.2 fL Immature Granulocyte % (Auto) 0 % Neutrophils (%) (Auto) 35 L 42-75 % Lymphocytes (%) (Auto) 55 H 12-44 % Monocytes (%) (Auto) 7 0-12 % Eosinophils (%) (Auto) 2 0-10 % Basophils (%) (Auto) 0 0-10 % Neutrophils # (Auto) 2.6 1.8-7.8 10^3/uL Lymphocytes # (Auto) 4.1 H 1.0-4.0 10^3/uL Monocytes # (Auto) 0.5 0.0-1.0 10^3/uL Eosinophils # (Auto) 0.2 0.0-0.3 10^3/uL Basophils # (Auto) 0.0 0.0-0.1 10^3/uL Immature Granulocyte # (Auto) 0.0 0.0-0.1 10^3/uL Erythrocyte Sedimentation Rate 16 0-20 MM/HR Sodium Level 139 135-145 MMOL/L Potassium Level 3.6 3.6-5.0 MMOL/L Chloride Level 104 98-107 MMOL/L Carbon Dioxide Level 21 21-32 MMOL/L Anion Gap 14 5-14 MMOL/L Blood Urea Nitrogen 8 7-18 MG/DL Creatinine 0.93 0.60-1.30 MG/DL Estimat Glomerular Filtration Rate 77 BUN/Creatinine Ratio 9 Glucose Level 111 H 70-105 MG/DL Calcium Level 9.2 8.5-10.1 MG/DL Corrected Calcium 8.9 8.5-10.1 MG/DL Magnesium Level 2.0 1.6-2.4 MG/DL Total Bilirubin 0.4 0.1-1.0 MG/DL Aspartate Amino Transf (AST/SGOT) 17 5-34 U/L Alanine Aminotransferase (ALT/SGPT) 8 0-55 U/L Alkaline Phosphatase 51 40-136 U/L Total Creatine Kinase 81 29-168 U/L Creatine Kinase MB 0.6 <6.6 NG/ML Myoglobin 19.1 10.0-92.0 NG/ML Troponin I < 0.028 <0.028 NG/ML C-Reactive Protein High Sensitivity 0.35 0.00-0.50 MG/DL Total Protein 7.7 6.4-8.2 GM/DL Albumin 4.4 3.2-4.5 GM/DL My Orders Orders - KIRK SKELTON DO Ed Iv/Invasive Line Start (02/07/22 21:11) Ekg Tracing (02/07/22 21:11) Monitor-Rhythm Ecg Trace Only (02/07/22 21:11) Ct Head/Cervical Spine Wo (02/07/22 21:11) Ct Extremity Upper Right Wo (02/07/22 21:11) Chest 1 View, Ap/Pa Only (02/07/22 21:11) Cbc With Automated Diff (02/07/22 21:11) Comprehensive Metabolic Panel (02/07/22 21:11) Creatine Kinase (02/07/22 21:11) Creatine Kinase Mb (02/07/22 21:11) Hs C Reactive Protein (02/07/22 21:11) Magnesium (02/07/22 21:11) Erythrocyte Sedimentation Rate (02/07/22 21:11) Myoglobin Serum (02/07/22 21:11) Troponin I Bladen (02/07/22 21:11) Ketorolac Injection (Toradol Injection) (02/07/22 23:00) Rx-Cyclobenzaprine Tablet (Rx-Flexeril T (02/07/22 22:59) Vital Signs/I&O 02/07/22 02/07/22 20:46 23:01 Temp 36.4 Pulse 101 91 Resp 20 B/P (MAP) 173/88 (116) 150/83 Pulse Ox 100 97 Capillary Refill : Progress Note : Progress Note UNEVENTFUL ER STAY ECG Initial ECG Impression Date: Feb 07, 2022 Initial ECG Impression Time: 21:20 Initial ECG Rate: 83 Initial ECG Rhythm: Normal Sinus Diagnostic Imaging Comments ALL PER RADIOLOGIST REPORTS AT 2249: CXR-- FINDINGS: Heart size and mediastinal contours are unremarkable. There is no identified pneumothorax. There is no large pleural effusion. There is no identified focal airspace consolidation. IMPRESSION: No identified acute cardiopulmonary abnormality. CT HEAD/CERVICAL SPINE: Findings: The ventricles and additional CSF spaces are normal in size and configuration for patient age. There is no abnormal extra-axial fluid collection. There is no evidence of acute intracranial hemorrhage. There is no mass effect or midline shift. There is no identified facet joint subluxation or dislocation. There is no pronounced facet arthritis. The cervical disc heights are well preserved. There is no asymmetric widening of the cervical disc spaces. CT is limited for assessment of disc pathology as well as additional non-bony causes of pathology in the spinal canal. There is no identified acute fracture of the cervical spine. The visualized portions of the lung apices are clear. Impression: 1. No identified acute intracranial abnormality. 2. No identified acute abnormality of the cervical spine. CT RIGHT UPPER EXTREMITY: Findings: There is no identified acute fracture. There is no cortical or aggressive bone destruction. The glenohumeral and acromioclavicular joint spaces appear well-preserved. There is no identified sizable fluid collection or mass on noncontrast imaging assessment. There is no radiopaque foreign body. The elbow joint space appears well preserved. Impression: Unremarkable CT of the right humerus. Reviewed: Reviewed by Me Departure Impression Primary Impression: RIGHT ARM PAIN AND PARESTHESIAS Disposition: HOME, SELF-CARE Condition: Improved Departure-Patient Inst. Decision time for Depature: 22:50 Referrals: JAZMIN MCGRAW DO (PCP/Family) Primary Care Physician Patient Instructions: Muscle and Bone Pain (DC), Paresthesia (DC) Add. Discharge Instructions: ALTERNATE ICE AND HEAT TO AFFECTED AREA AT 20 MINUTE INTERVALS AVOID ANY PRESSURE OR LIFTING ON RIGHT SHOULDER OR ARM FOLLOW UP WITH YOUR DR NEXT WEEK FOR FURTHER CARE, RETURN TO ER IF WORSE All discharge instructions reviewed with patient and/or family. Voiced understanding. Scripts Cyclobenzaprine HCl (Cyclobenzaprine HCl) 10 Mg Tablet 10 MG PO Q8H PRN for SPASMS, #15 TAB 0 Refills Prov: KIRK SKELTON DO 02/07/22 Ketorolac Tromethamine (Ketorolac Tromethamine) 10 Mg Tablet 10 MG PO Q6H for Pain, #15 TAB Prov: KIRK SKELTON DO 02/07/22 KIRK SKELTON DO Feb 07, 2022 21:23
[2022-02-07 21:26] LABS: BASOPHILS % (AUTO) 0 % (0-10); EOSINOPHILS # (AUTO) 0.2 10^3/uL (0.0-0.3); EOSINOPHILS % (AUTO) 2 % (0-10); HEMATOCRIT 37 % (35-52); HEMOGLOBIN 11.8 g/dL (11.5-16.0); LYMPHOCYTES # (AUTO) 4.1 10^3/uL (1.0-4.0); LYMPHOCYTES % (AUTO) 55 % (12-44); MEAN CORPUSCULAR HEMOGLOBIN 25 pg (25-34); MEAN CORPUSCULAR HGB CONC 32 g/dL (32-36); MEAN CORPUSCULAR VOLUME 78 fL (80-99); MEAN PLATELET VOLUME 9.5 fL (9.0-12.2); MONOCYTES # (AUTO) 0.5 10^3/uL (0.0-1.0); MONOCYTES % (AUTO) 7 % (0-12); NEUTROPHILS # (AUTO) 2.6 10^3/uL (1.8-7.8); NEUTROPHILS % (AUTO) 35 % (42-75); PLATELET COUNT 360 10^3/uL (130-400); WHITE BLOOD COUNT 7.4 10^3/uL (4.3-11.0)
[2022-02-07 21:39] LABS: ALBUMIN 4.4 GM/DL (3.2-4.5); CHLORIDE 104 MMOL/L (98-107); POTASSIUM 3.6 MMOL/L (3.6-5.0); SODIUM 139 MMOL/L (135-145)
[2022-02-07 21:41] LABS: CALCIUM 9.2 MG/DL (8.5-10.1)
[2022-02-07 21:42] LABS: ERYTHROCYTE SEDIMENTATION RATE 16 MM/HR (0-20); GLUCOSE 111 MG/DL (70-105); TOTAL PROTEIN 7.7 GM/DL (6.4-8.2)
[2022-02-07 21:43] LABS: CARBON DIOXIDE 21 MMOL/L (21-32)
[2022-02-07 21:44] LABS: BILIRUBIN,TOTAL 0.4 MG/DL (0.1-1.0)
[2022-02-07 21:45] LABS: ALKALINE PHOSPHATASE 51 U/L (40-136)
[2022-02-07 21:46] LABS: CREATININE SERUM 0.93 MG/DL (0.60-1.30); GFR ESTIMATED 77
[2022-02-07 21:47] LABS: BUN/CREATININE RATIO 9
[2022-02-07 21:49] LABS: ALANINE AMINOTRANSFERASE 8 U/L (0-55); CREATINE KINASE 81 U/L (29-168)
--- NOTE | 2022-02-07 21:51 | Diagnostic Imaging Report ---
EXAMINATION: Chest radiograph, portable AP view. DATE: 02/07/2022 9:29 PM INDICATION: 46 [id number]-[id number], chest pain. COMPARISON: December 07, 2015. FINDINGS: Heart size and mediastinal contours are unremarkable. There is no identified pneumothorax. There is no large pleural effusion. There is no identified focal airspace consolidation. IMPRESSION: No identified acute cardiopulmonary abnormality. Dictated by: Dictated on workstation # [id number]
[2022-02-07 21:58] LABS: CREATINE KINASE MB 0.6 NG/ML (<6.6)
--- NOTE | 2022-02-07 22:00 | Diagnostic Imaging Report ---
Procedure: CT head and CT cervical spine without contrast. Technique: Multiple contiguous axial images were obtained through the brain and cervical spine without the use of intravenous contrast. Sagittal and coronal reformations through the cervical spine were then performed. Auto Exposure Controls were utilized during the CT exam to meet ALARA standards for radiation dose reduction. Date: February 07, 2022. Indication: 46-year-old female, right arm numbness. Comparison: None. Findings: The ventricles and additional CSF spaces are normal in size and configuration for patient age. There is no abnormal extra-axial fluid collection. There is no evidence of acute intracranial hemorrhage. There is no mass effect or midline shift. There is no identified facet joint subluxation or dislocation. There is no pronounced facet arthritis. The cervical disc heights are well preserved. There is no asymmetric widening of the cervical disc spaces. CT is limited for assessment of disc pathology as well as additional non-bony causes of pathology in the spinal canal. There is no identified acute fracture of the cervical spine. The visualized portions of the lung apices are clear. Impression: 1. No identified acute intracranial abnormality. 2. No identified acute abnormality of the cervical spine. Dictated by: Dictated on workstation # [id number]
--- NOTE | 2022-02-07 22:42 | Diagnostic Imaging Report ---
Procedure: CT right upper extremity without contrast. Technique: Multiple contiguous axial images were obtained through the right upper extremity without the use of intravenous contrast. Sagittal and coronal reformations were then performed. Auto Exposure Controls were utilized during the CT exam to meet ALARA standards for radiation dose reduction. Date: February 07, 2022. Indication: 46-year-old female, right arm numbness. Comparison: None. Findings: There is no identified acute fracture. There is no cortical or aggressive bone destruction. The glenohumeral and acromioclavicular joint spaces appear well-preserved. There is no identified sizable fluid collection or mass on noncontrast imaging assessment. There is no radiopaque foreign body. The elbow joint space appears well preserved. Impression: Unremarkable CT of the right humerus. Dictated by: Dictated on workstation # [id number]
[2022-02-07] MEDS ORDERED: KETO10TA PO (22:59)
[2022-02-07] MEDS ORDERED: CYCL10TA25 PO (22:59)
[2022-02-07] MEDS ORDERED: RX-CYCLOBENZAPRINE 10 MG (FLEXERIL) TAB PPK#3 PO STA (22:59)
[2022-02-07] MEDS ORDERED: KETOROLAC 30 MG/ML VIAL IVP ONE (23:00)
[2022-02-07 23:01] VITALS: BP 150/83
== END 2022-02-07 23:04 | disposition home or self-care (01) ==
LOC: EDUNIT# 20:36 → ER 20:38
DX: R20.2 Paresthesia of skin (principal)
CPT/HCPCS: 36415; 70450; 71045; 72125; 73200; 80053; 82550; 82553; 83735; 83874; 84484; 85025; 85652; 86141; 93005; 93041

== ENCOUNTER → 2022-10-29 | Outpatient (CLI) | payer BC ==
[~2022-10-29] MED LIST changes: +CYCL10TA25 PO; +KETO10TA PO
--- NOTE | 2022-10-29 09:10 | Diagnostic Imaging Report ---
INDICATION: Routine screening. COMPARISON: 08/22/2021 and 05/27/2020. TECHNIQUE: 2D and 3D bilateral screening mammography was performed with CAD. FINDINGS: Both breasts are heterogeneously dense, limiting the sensitivity of mammography. The parenchymal pattern is stable. No mass or malignant-appearing microcalcifications are seen. Axillae are unremarkable. IMPRESSION: No mammographic features suspicious for malignancy are identified. ACR BI-RADS Category 1: Negative. Result letter will be mailed to the patient. Note: At least 10% of breast cancer is not imaged by mammography. Dictated by: Dictated on workstation # [id number]
== END ==
LOC: RAD 07:12
PROVIDERS: ATTEND Obstetrics & Gynecology
DX: Z12.31 Encounter for screening mammogram for malignant neoplasm of breast (principal)
CPT/HCPCS: 77063; 77067

== ENCOUNTER → 2022-12-24 | Outpatient (CLI) | payer BC ==
[2022-12-24 09:45] LABS: ALBUMIN 4.2 GM/DL (3.2-4.5); BILIRUBIN,TOTAL 0.4 MG/DL (0.1-1.0); CALCIUM 9.2 MG/DL (8.5-10.1); CREATININE SERUM 0.81 MG/DL (0.60-1.30); POTASSIUM 3.4 MMOL/L (3.6-5.0); TOTAL PROTEIN 7.2 GM/DL (6.4-8.2)
== END ==
LOC: LAB 09:08
PROVIDERS: ATTEND Internal Medicine Cardiovascular Disease
DX: R07.9 Chest pain, unspecified (principal); I10 Essential (primary) hypertension; R00.2 Palpitations; E78.2 Mixed hyperlipidemia
CPT/HCPCS: 36415; 80053; 80061

== ENCOUNTER → 2023-04-26 | Outpatient (CLI) | payer BC ==
[2023-04-26 07:58] LABS: ALBUMIN 4.1 GM/DL (3.2-4.5); BILIRUBIN,TOTAL 0.5 MG/DL (0.1-1.0); CALCIUM 9.2 MG/DL (8.5-10.1); CREATININE SERUM 0.86 MG/DL (0.60-1.30); POTASSIUM 3.5 MMOL/L (3.6-5.0); TOTAL PROTEIN 7.1 GM/DL (6.4-8.2)
== END ==
LOC: LAB 07:10
PROVIDERS: ATTEND Family Medicine
DX: R73.03 Prediabetes (principal); E78.2 Mixed hyperlipidemia
CPT/HCPCS: 36415; 80053; 80061; 83036; 84443